=== PATIENT | male | born 1960 | race Two or more races ===

== ENCOUNTER 2024-10-05 17:15 | Inpatient (IN) | payer MEDICAID, BC ==
[~2024-10-05] VITALS: Ht 188 cm; Wt 110.0 kg
--- NOTE | 2024-10-05 17:41 | ED.PDOC ---
SOB-HPI HPI Comments HPI: 64 y/o M, presents to the ED for CC of shortness of breath. Patient reports, he has been experiencing symptoms of shortness of breath with an associated non- productive cough x3-4weeks. Patient reports, shortness of breath to worsen with light exertion. Upon arrival to the ED, patient has 4+ pitting edema. Patient denies chest pain, fever, chills, weakness, or fatigue. No other symptoms or modifying factors present at this time. Vitals Temperature: Respiratory rate: SpO2: Heart rate: 52 Blood pressure: 140/99 Past Medical History: NEUROPATHY Past Surgical History: L-KNEE, BELLY BUTTON Social History: DENIES ANY WILDE: SOB HPI: Poor Historian. 64-year-old male presents to emergency department for evaluation of four week history of shortness of breath with the associated nonproductive cough. Shortness breath is worse with laying flat and with minimal exertion. He does not use oxygen at home. He does not go see a doctor at all because he does not have insurance. Patient has been getting worse and decided to come in for evaluation. Pulse ox is 94% at room air here in triage but appears labored. Past Medical History: Neuropathy, Past Surgical History: Belly surgery, left knee surgery REVIEW OF SYSTEMS: CONSTITUTIONAL: Denies acute: fever, diaphoresis, chills, generalized weakness. HEAD: Denies acute: headache, photophobia Eyes: Denies acute: Double vision, vision loss, eye pain, eye discharge. EARS: Denies acute: tinnitus, hearing loss, ear discharge, ear pain, THROAT: Denies acute: sore throat, swelling, difficulty swallowing , pain with swall owing, change in voice. NECK: Denies acute: neck pain, neck swelling, stiff neck. HEART: Denies acute : chest pain, palpitations, LUNGS: Denies acute: , wheezing, , hemoptysis ABDOMEN: Denies acute: abdominal pain, Nausea, Vomiting, diarrhea, melena , hematemesis, hematochezia SKIN: Denies acute: rash, redness, lesions, itchiness. EXTREMITIES: Denies acute: calf pain, numbness, tingling, weakness, denies pain in extremity. Denies acute: Low back pain. Neuro: Denies acute: focal neurological deficit, motor or sensory focal neurological deficit, tremors, seizure like activity, confusion, dizziness, change in mental status, loss of bowel or bladder function, cauda equina like symptoms. : Denies acute: dysuria, hematuria, flank pain, increase in urinary frequency. PSYCH: Denies acute: hallucination, suicidal ideation, homicidal ideation. PHYSICAL EXAM: General: ----moderate----acute distress, awake and alert. Head: normocephalic, atraumatic. Neck: supple, trachea is midline, no swelling. Throat: Normal phonation. Eyes:, no erythema, no purulent discharge, no proptosis, no icterus. Heart: Tachycardic, no significant murmur appreciated. Lungs: Mild respiratory distress, No wheezing, no rhonchi, no crackles. No stridors Clear to auscultation bilaterally. Abdomen: non tender to palpation, mild distended abdomen,, soft, no guarding, no rebound, + bowel sounds. Neuro: Awake, Alert, oriented to name, self, situation, follows commands GCS=15. Speech is normal. Skin: no petechia, no purpura, no cyanosis, non-pale, not jaundice. Lower extremities: --4/4 bilateral- Pitting edema no deformity, no focal swelling, no calf TTP. Makes eye contact. moves all four extremities. Face: no apparent facial droop. Ambulating in the ED independently. ED COURSE: Time Seen by MD: 17:40 Reviewed notes: Nurses Notes, Medications, Allergies Information Source: Patient Mode of Arrival: Ambulatory Severity: Moderate Timing: Weeks Duration: Since onset Context: With Light Exertion PE Risk Factors: None History of: None Prehospital treatment: None Modifying Factors: Nothing Associated Signs and Symptoms: Cough If cough with SOB: Non-Productive Was a procedure done? Was a procedure done?: No Differential Dx Differential Diagnosis: Bronchitis, CHF, COPD, Pneumonia, Sinusitis, Pharyngitis, URI, Other (DDx include ACS, unstable angina, anxiety, PE, pneumothroax, neoplasm, cardiac ischemia, COPD, asthma, CHF, pleural effusion, tobacco abuse, pneumonia, hypoxia, hypercapnia, anemia., infection/sepsis., pulmonary edema. Asthma, Cardiac tamponade, infection.) X-Ray, Labs, Meds, VS Vital Signs Date Time Temp Pulse Resp B/P (MAP) Pulse Ox O2 Delivery O2 Flow Rate FiO2 10/05/24 22:16 140 22 92 Nasal Cannula* 4 36 10/05/24 22:15 136 22 137/82 (100) 94 10/05/24 22:00 131 22 119/79 (92) 94 10/05/24 21:45 136 22 117/80 (92) 94 10/05/24 21:30 140 22 90/72 (78) 94 10/05/24 21:15 145 22 109/70 (83) 94 10/05/24 21:00 96.9 154 22 103/78 (86) 94 96.9 10/05/24 20:45 151 22 114/80 (91) 94 10/05/24 20:30 140 22 99/72 (81) 94 10/05/24 20:15 144 22 97/67 (77) 94 10/05/24 20:03 134 22 103/83 (90) 94 10/05/24 20:00 96.7 139 22 100/65 (77) 94 96.7 10/05/24 19:45 144 22 94/67 (76) 94 10/05/24 19:30 145 22 76/40 (52) 94 10/05/24 19:15 145 22 117/82 (94) 94 10/05/24 19:07 157 120/86 10/05/24 19:00 159 22 120/86 (97) 94 10/05/24 18:45 161 22 119/65 (83) 94 10/05/24 18:30 162 22 83/65 (71) 94 10/05/24 18:07 178 116/78 10/05/24 18:06 116/78 10/05/24 18:00 97.8 168 22 121/87 (98) 94 97.8 10/05/24 17:42 97.6 52 22 140/99 (113) 94 97.6 Lab Test 10/05/24 21:09 10/05/24 19:19 10/05/24 18:45 10/05/24 18:40 Range/Units Lactic Acid Level 2.9 *H 2.6 *H 0.4-2.0 mmol/L Troponin I High Sensitivity 7 7 </=54 ng/L Urine Color Yellow Yellow Urine Clarity Clear Clear Urine pH 6.0 5.0-9.0 Urine Specific [place] 1.031 1.001-1.035 Urine Protein 2+ H Negative Urine Ketones Negative Negative Urine Blood Negative Negative /uL Urine Nitrite Negative Negative Urine Bilirubin Negative Negative Urine Urobilinogen 3 H Negative mg/dL Urine Leukocyte Esterase Negative Negative /uL Urine RBC 2 0 - 3 /hpf Urine Microscopic WBC 8 H 0-3 /HPF Urine Squamous Epithelial Cells Few <5 /hpf Urine Bacteria Few H None Seen /hpf Urine Hyaline Casts Few 0 - 2 /lpf Urine Mucus Few None Seen Urine Glucose Trace Normal mg/dL Influenza Type A Antigen Negative Negative Influenza Type B Antigen Negative Negative SARS-CoV-2 Antigen (Rapid) Negative NEGATIVE Test 10/05/24 18:14 Range/Units White Blood Count 12.5 H 4.4-10.8 10^3/uL Red Blood Count 5.74 4.5-5.90 10^6/uL Hemoglobin 17.4 13.5-17.5 g/dL Hematocrit 51.1 41.0-53.0 % Mean Corpuscular Volume 89.1 80.0-100.0 fL Mean Corpuscular Hemoglobin 30.3 28.0-32.0 pg Mean Corpuscular Hemoglobin Concent 34.0 32.0-36.0 g/dL Red Cell Distribution Width 15.1 H 11.8-14.3 % Platelet Count 279 140-450 10^3/uL Mean Platelet Volume 8.1 6.9-10.8 fL Neutrophils (%) (Auto) 83.6 H 37.0-80.0 % Lymphocytes (%) (Auto) 7.3 L 10.0-50.0 % Monocytes (%) (Auto) 8.7 0.0-12.0 % Eosinophils (%) (Auto) 0.2 0.0-7.0 % Basophils (%) (Auto) 0.2 0.0-2.0 % Neutrophils # (Auto) 10.4 H 1.6-8.6 10 ^3/uL Lymphocytes # (Auto) 0.9 0.4-5.4 10 ^3/uL Monocytes # (Auto) 1.1 0-1.3 10 ^3/uL Eosinophils # (Auto) 0 0-0.8 10 ^3/uL Basophils # (Auto) 0 0-0.2 10 ^3/uL Nucleated Red Blood Cells 0.1 % Prothrombin Time 14.1 H 9.3-11.8 sec Prothrombin Time INR 1.37 H 0.9-1.15 Activated Partial Thromboplast Time 29.1 24.5-34.5 SEC Sodium Level 136 136-145 mmol/L Potassium Level 4.4 3.5-5.1 mmol/L Chloride Level 105 98-107 mmol/L Carbon Dioxide Level 19 L 20-31 mmol/L Anion Gap 12 5-15 Blood Urea Nitrogen 27 H 9-23 mg/dL Creatinine 1.12 0.700-1.30 mg/dL Glomerular Filtration Rate Calc 73 >90 mL/min BUN/Creatinine Ratio 24.1 H 10.0-20.0 Serum Glucose 158 H 74-106 mg/dL Hemoglobin A1c 6.1 H <5.7 % A1C Lactic Acid Level 2.7 *H 0.4-2.0 mmol/L Calcium Level 10.3 8.7-10.4 mg/dL Magnesium Level 2.0 1.6-2.6 mg/dL Total Bilirubin 1.5 H 0.2-1.0 mg/dL Aspartate Amino Transferase (AST) 112 H 13-40 U/L Alanine Aminotransferase (ALT) 140 H 7-40 U/L Alkaline Phosphatase 60 46-116 U/L Troponin I High Sensitivity 6 </=54 ng/L B-Type Natriuretic Peptide 39.79 0-100 pg/mL Total Protein 6.5 5.7-8.2 g/dL Albumin 4.5 3.2-4.8 g/dL Current Medications Medications (Trade) Dose Ordered Sig/Nadia Route Start Time Stop Time Status Last Admin Furosemide (Lasix Injection) 60 mg ONCE ONCE IV 10/05/24 17:45 10/05/24 17:46 DC 10/05/24 18:06 Aspirin (Ecotrin Enteric Coated Tablet) 325 mg ONCE ONCE PO 10/05/24 17:45 10/05/24 17:46 DC 10/05/24 18:07 Labetalol HCl (Labetalol HCl) 5 mg ONCE ONCE IV 10/05/24 17:45 10/05/24 17:51 DC 10/05/24 18:07 Sodium Chloride 500 ml @ 250 mls/hr Q2H ONCE IV 10/05/24 18:45 10/05/24 20:44 DC 10/05/24 19:11 Levofloxacin/ Dextrose 100 ml @ 100 mls/hr ONCE ONCE IV 10/05/24 18:45 10/05/24 19:44 DC 10/05/24 19:22 Amiodarone HCl 100 ml @ 600 mls/hr ONCE ONCE IV 10/05/24 19:15 10/05/24 19:24 DC 10/05/24 19:23 Carvedilol (Coreg Tablet) 3.125 mg Q12HR PO 10/05/24 22:00 10/05/24 22:54 Amiodarone HCl (Cordarone Tablet) 200 mg Q12HR PO 10/05/24 22:00 10/05/24 22:54 Sodium Chloride 1,000 ml @ 60 mls/hr [id number] IV 10/05/24 20:45 10/05/24 22:33 Digoxin (Lanoxin Injection) 125 mcg ONCE ONCE IV 10/05/24 21:45 10/05/24 21:46 DC 10/05/24 22:33 [place] [id number] Ph: [phone] DIAGNOSTIC IMAGING Diagnostic Imaging Report : [id number] Signed PATIENT: REYMUNDO WILDE ACCT: [id number] UNIT: [id number] : 1960 LOC: ER ROOM / BED: / AGE / SEX: 64 / M ADM STATUS: REG ER SERVICE [id number] ORDERING PHYSICIAN: MARIA GUADALUPE MOLINA DO PROCEDURE(s): CXRP - CHEST PORTABLE REASON: sob ORDER NUMBER(s): [id number], ACCESSION NUMBER(s): [id number] EXAM: XR Chest, 1 View CLINICAL INDICATION: sob TECHNIQUE: Frontal view of the chest. COMPARISON: None FINDINGS: LUNGS AND PLEURAL SPACES: Left pleural effusion. HEART: Cardiomegaly with mild congestion. MEDIASTINUM: Unremarkable. Normal mediastinal contour. BONES/JOINTS: Unremarkable. No acute fracture. OTHER FINDINGS: . IMPRESSION: 1. Cardiomegaly with mild congestion. 2. Left pleural effusion. ATED BY: RADHA SANDERSON MD DICTATED DATE/TIME: 10/05/241851 SIGNED BY: RADHA SANDERSON MD SIGNED DATE/TIME: 10/05/241851 CC: Time of 1ST Reevaluation: 18:20 Reevaluation 1ST: Unchanged Time of 2ND Reevaluation: 00:07 Reevaluation 2ND: Improved Patient Education/Counseling: Diagnosis, Treatment Family Education/Counseling: No Family Present Comments Patient presented with the above HPI.--dyspnea----workup was initiated. patient was found with the above mentioned diagnosis. the following medications were ordered: please refer to order lists of meds and tests obtained by myself Dr. Molina. Patient ED course and VS have been stabilized. Patient has been reassessed in the ED and remained in a stable condition. Pertinent incidental findings were discussed with the patient and/or family. Patient/family voices understanding and is agreeable with plan. Patient has been observed in the ED adequate length of time to insure improvement/stability. Escalation of care considered: Consideration of escalation to observation or admission Patient was found with atrial fibrillation with RVR and very edematous and distended abdomen consistent with likely developing CHF. Patient met sepsis criteria. Sepsis protocol was initiated with weight based fluid resuscitation. Patient is allergic to penicillin. Levaquin was given. For AFib with RVR, we 1st tried labetalol small dose but patient became hypotensive. We gave him a small bolus of normal saline resuscitation 250 cc. His blood pressure improved. We started him on a amiodarone bolus and a drip instead. Given the patient's volume overload, Lasix was ordered earlier. Patient was found with large left pleural effusion. This will likely need to be drained in the morning by Interventional Radiology. Patient was ADMITTED to the medicine team for further evaluation and treatment of their presentation. All the reports of any imaging studies that were ordered by myself were reviewed by myself. Critical Care Note Critical Care Time?: Yes (90 min-critical care time only) Departure 1 Departure Time of Disposition: 17:52 Impression: Primary Impression: Atrial fibrillation with RVR Additional Impressions: Dyspnea Volume overload Sepsis UTI (urinary tract infection) Pleural effusion Elevated LFTs Disposition: ADMITTED INPATIENT Admit to: ICU Condition: Critical Discharged With: Self Heart Score Heart Score: Heart Score Response (Comments) Value History Moderate Suspicious [address]-Deviation 2 Age 45-64 1 Risk Factors No known risk factors 0 Troponin Normal limit 0 Total 4 I personally scribed for MARIA GUADALUPE MOLINA DO ([email or web address]) on 10/05/24 at 17:41. Electronically submitted by Selam Singletary ([email or web address]). I personally scribed for MARIA GUADALUPE MOLINA DO ([email or web address]) on 10/05/24 at 17:49. Electronically submitted by Selam Singletary ([email or web address]). I personally scribed for MARIA GUADALUPE MOLINA DO ([email or web address]) on 10/05/24 at 21:47. Electronically submitted by Barrington Jeffrey ([email or web address]). MARIA GUADALUPE MOLINA DO Oct 05, 2024 17:41
[2024-10-05] MEDS: FUROSEMIDE 100 MG/10ML VIAL IV ONE (18:06)
[2024-10-05] MEDS: ASPirin-EC 325mg tab PO ONE (18:07)
[2024-10-05] MEDS: LABETALOL HCL 20 MG/4 ML VL IV ONE (18:07)
[2024-10-05 18:28] LABS: Hematocrit 51.1 % (41.0-53.0); Hemoglobin 17.4 g/dL (13.5-17.5); Mean Corpuscular Hemoglobin 30.3 pg (28.0-32.0); Mean Corpuscular Volume 89.1 fL (80.0-100.0); Nucleated Red Blood Cells % 0.1 %
[2024-10-05 18:46] LABS: Albumin 4.5 g/dL (3.2-4.8); Alkaline Phosphatase 60 U/L (46-116); Anion Gap 12 (5-15); BUN/Creatinine Ratio 24.1 (10.0-20.0); Calcium 10.3 mg/dL (8.7-10.4); Chloride 105 mmol/L (98-107); Magnesium 2.0 mg/dL (1.6-2.6); Potassium 4.4 mmol/L (3.5-5.1); Total Protein 6.5 g/dL (5.7-8.2)
--- NOTE | 2024-10-05 18:55 | DVH ---
EXAM: XR Chest, 1 View CLINICAL INDICATION: sob TECHNIQUE: Frontal view of the chest. COMPARISON: None FINDINGS: LUNGS AND PLEURAL SPACES: Left pleural effusion. HEART: Cardiomegaly with mild congestion. MEDIASTINUM: Unremarkable. Normal mediastinal contour. BONES/JOINTS: Unremarkable. No acute fracture. OTHER FINDINGS: . IMPRESSION: 1. Cardiomegaly with mild congestion. 2. Left pleural effusion.
[2024-10-05 19:00] LABS: Alanine Aminotransferase 140 U/L (7-40); Bilirubin, Total 1.5 mg/dL (0.2-1.0); Blood Urea Nitrogen 27 mg/dL (9-23); Carbon Dioxide 19 mmol/L (20-31); Glucose 158 mg/dL (74-106); Sodium 136 mmol/L (136-145)
[2024-10-05 19:01] LABS: Urine Protein, UAD 2+ (Negative)
[2024-10-05 19:10] LABS: INR 1.37 (0.9-1.15); Partial Thromboplastin Time 29.1 SEC (24.5-34.5); Prothrombin Time 14.1 sec (9.3-11.8)
[2024-10-05] MEDS: SODIUM CHLORIDE 0.9% 500 ML IV ONE ×2 (19:11→22:34)
[2024-10-05] MEDS: AMIODARONE BOLUS KIT 100 ML IV ONE (19:23)
[2024-10-05] MEDS ORDERED: AMIODARONE 360mg/200mL PREMIX 200 ML IV SCH ×2 (19:30)
[2024-10-05 19:50] LABS: COVID19 ANTIGEN SOFIA FIA NEGATIVE (NEGATIVE)
[2024-10-05 19:52] LABS: Lactic Acid w/Reflex 2.6 mmol/L (0.4-2.0)
[2024-10-05] MEDS: AMIODARONE 360mg/200mL PREMIX 200 ML IV ONE (19:59)
[2024-10-05] MEDS ORDERED: VANCOMYCIN PER PHARMACY 0 MG IV SCH (20:45)
[2024-10-05] MEDS ORDERED: IBUPROFEN 600 MG TAB PO PRN (20:45)
[2024-10-05 22:16] VITALS: PULSE 140; RESP 22; O2SAT 92
--- NOTE | 2024-10-05 22:17 | DVHHP2 ---
History of Present Illness Reason for Visit: Atrial fibrillation with RVR History of Present Illness The patient is a 64-year-old male with past medical history of neuropathy who presented to [facility] ED with complaint of shortness of breaths. Patient reports he has been experiencing symptoms of nonproductive cough for the past 3 weeks, shortness of breaths with exertion, SOB at rest, increased work of breathing, getting worse today that prompted this visit. Patient was seen and evaluated in the ED, laboratory data shows WBC 12.5, platelets 279, sodium 136, potassium 4.4, BUN 27, creatinine 1.12, glucose 158, GFR 73, troponin seven, AST 112, ALT 140, BNP 39.79, blood pressure 76/40 trending up to 99/72, heart rate 178 trending down to 138, temperature 98.7 F, O2 saturation 95% on oxygen. Chest x-ray revealing cardiomegaly with mild congestion, left pleural effusion. Patient was started on IV amiodarone drip, IV Lasix, please see medication orders section in the computer. On my assessment, patient denied chest pain, no dizziness, no headache, no diaphoresis, currently on oxygen, no nausea, no vomiting, no fever, no chills. Patient was admitted for further evaluation and medical management. Past Medical History Neuropathy Past Surgical History Left knee surgery, Belly button surgery Family History Reviewed, noncontributory to the management of this case. Past Social History The patient lives at home, denies smoking, alcohol or illicit drugs abuse. Review of Systems Constitutional: Yes: Weakness; No: Fever, Chills, Sweats, Malaise, Other Eyes: No: Pain, Vision change, Conjunctivae inflammation, Eyelid inflammation, Other, Redness ENT: No: Ear pain, Ear discharge, Nose pain, Nose discharge, Nose congestion, Mouth pain, Mouth swelling, Throat pain, Throat swelling, Other Respiratory: Shortness of breath; No: Cough, Dry, SOB with excertion, Wheezing, Hemoptysis, Pleuritic Pain, Sputum, Wheezing, Other Cardiovascular: Palpitations; No: Chest Pain, Orthopnea, Paroxysmal Noc. Dyspnea, Edema, Lt Headedness, Other Gastrointestinal: No: Nausea, Vomiting, Abdominal Pain, Diarrhea, Constipation, Melena, Hematochezia, Other Genitourinary: No Dysuria, No Frequency, No Incontinence, No Hematuria, No Retention, No Other Musculoskeletal: No: other, neck pain, shoulder pain, arm pain, back pain, hand pain, leg pain, foot pain Skin: No: Rash, Lesions, Jaundice, Bruising, Other Neurological: No: Weakness, Numbness, Incoordination, Change in speech, Confusion, Seizures, Other Allergies: Coded Allergies: Penicillins (Verified Allergy, Unknown, 10/05/24) Medications Current Medications Medications Dose Ordered Sig/Nadia Route Start Time Stop Time Status Last Admin Dose Admin Carvedilol 3.125 mg Q12HR PO 10/05/24 22:00 Digoxin 0.125 mg DAILY PO 10/06/24 10:00 Amiodarone HCl 200 mg Q12HR PO 10/05/24 22:00 Vancomycin HCl 0 ml @ 0 mls/hr UD IV 10/05/24 20:45 UNV Levofloxacin/ Dextrose 100 ml @ 100 mls/hr DAILY IV 10/06/24 10:00 Aspirin 81 mg DAILY PO 10/06/24 10:00 Ibuprofen 600 mg Q6HP PRN PO 10/05/24 20:45 Sodium Chloride 1,000 ml @ 60 mls/hr [id number] IV 10/05/24 20:45 Acetaminophen/ Hydrocodone Bitart 1 tab Q4HP PRN PO 10/05/24 20:45 Ondansetron HCl 4 mg Q4HP PRN IV 10/05/24 20:45 Docusate Sodium 100 mg BIDPRN PRN PO 10/05/24 20:45 Vancomycin HCl 200 ml @ 200 mls/hr Q1H IV 10/05/24 22:30 10/06/24 00:29 Exam Vital Signs Vital Signs Date Time Temp Pulse Resp B/P (MAP) Pulse Ox O2 Delivery O2 Flow Rate FiO2 10/05/24 20:30 140 22 99/72 (81) 94 10/05/24 20:00 98.7 98.7 General Appearance: Alert, Oriented X3, Cooperative, No acute distress HEENT: Atraumatic, PERRLA, EOMI, Mucous membr. moist/pink Respiratory: Normal air movement, Other (Diminished breath sounds) Cardiovascular: Regular rate, Normal S1, Normal S2, No murmurs Abdominal: Normal bowel sounds, Soft, No tenderness, No hepatospenomegaly, No masses Extremities: No clubbing, No cyanosis, No edema, Normal pulses, No tenderness/swelling Skin: No rashes, No breakdown, No significant lesion Neuro: Normal speech, Normal tone, Sensation intact, Cranial nerves 3-12 NL, Reflexes 2+, Other (Generalized weakness) Psych/Mental Status: Mental status NL, Mood NL Labs/Xrays Labs Test 10/05/24 21:09 10/05/24 18:45 10/05/24 18:40 10/05/24 18:14 Range/Units Lactic Acid Level 2.9 *H 0.4-2.0 mmol/L Troponin I High Sensitivity 7 </=54 ng/L Urine Color Yellow Yellow Urine Clarity Clear Clear Urine pH 6.0 5.0-9.0 Urine Specific [place] 1.031 1.001-1.035 Urine Protein 2+ H Negative Urine Ketones Negative Negative Urine Blood Negative Negative /uL Urine Nitrite Negative Negative Urine Bilirubin Negative Negative Urine Urobilinogen 3 H Negative mg/dL Urine Leukocyte Esterase Negative Negative /uL Urine RBC 2 0 - 3 /hpf Urine Microscopic WBC 8 H 0-3 /HPF Urine Squamous Epithelial Cells Few <5 /hpf Urine Bacteria Few H None Seen /hpf Urine Hyaline Casts Few 0 - 2 /lpf Urine Mucus Few None Seen Urine Glucose Trace Normal mg/dL Influenza Type A Antigen Negative Negative Influenza Type B Antigen Negative Negative SARS-CoV-2 Antigen (Rapid) Negative NEGATIVE White Blood Count 12.5 H 4.4-10.8 10^3/uL Red Blood Count 5.74 4.5-5.90 10^6/uL Hemoglobin 17.4 13.5-17.5 g/dL Hematocrit 51.1 41.0-53.0 % Mean Corpuscular Volume 89.1 80.0-100.0 fL Mean Corpuscular Hemoglobin 30.3 28.0-32.0 pg Mean Corpuscular Hemoglobin Concent 34.0 32.0-36.0 g/dL Red Cell Distribution Width 15.1 H 11.8-14.3 % Platelet Count 279 140-450 10^3/uL Mean Platelet Volume 8.1 6.9-10.8 fL Neutrophils (%) (Auto) 83.6 H 37.0-80.0 % Lymphocytes (%) (Auto) 7.3 L 10.0-50.0 % Monocytes (%) (Auto) 8.7 0.0-12.0 % Eosinophils (%) (Auto) 0.2 0.0-7.0 % Basophils (%) (Auto) 0.2 0.0-2.0 % Neutrophils # (Auto) 10.4 H 1.6-8.6 10 ^3/uL Lymphocytes # (Auto) 0.9 0.4-5.4 10 ^3/uL Monocytes # (Auto) 1.1 0-1.3 10 ^3/uL Eosinophils # (Auto) 0 0-0.8 10 ^3/uL Basophils # (Auto) 0 0-0.2 10 ^3/uL Nucleated Red Blood Cells 0.1 % Prothrombin Time 14.1 H 9.3-11.8 sec Prothrombin Time INR 1.37 H 0.9-1.15 Activated Partial Thromboplast Time 29.1 24.5-34.5 SEC Sodium Level 136 136-145 mmol/L Potassium Level 4.4 3.5-5.1 mmol/L Chloride Level 105 98-107 mmol/L Carbon Dioxide Level 19 L 20-31 mmol/L Anion Gap 12 5-15 Blood Urea Nitrogen 27 H 9-23 mg/dL Creatinine 1.12 0.700-1.30 mg/dL Glomerular Filtration Rate Calc 73 >90 mL/min BUN/Creatinine Ratio 24.1 H 10.0-20.0 Serum Glucose 158 H 74-106 mg/dL Hemoglobin A1c 6.1 H <5.7 % A1C Calcium Level 10.3 8.7-10.4 mg/dL Magnesium Level 2.0 1.6-2.6 mg/dL Total Bilirubin 1.5 H 0.2-1.0 mg/dL Aspartate Amino Transferase (AST) 112 H 13-40 U/L Alanine Aminotransferase (ALT) 140 H 7-40 U/L Alkaline Phosphatase 60 46-116 U/L B-Type Natriuretic Peptide 39.79 0-100 pg/mL Total Protein 6.5 5.7-8.2 g/dL Albumin 4.5 3.2-4.8 g/dL PATIENT: REYMUNDO WILDE ACCT: [id number] UNIT: [id number] : 1960 LOC: ER ROOM / BED: / AGE / SEX: 64 / M ADM STATUS: REG ER SERVICE [id number] ORDERING PHYSICIAN: MARIA GUADALUPE MOLINA DO PROCEDURE(s): CXRP - CHEST PORTABLE REASON: sob ORDER NUMBER(s): [id number], ACCESSION NUMBER(s): [id number] EXAM: XR Chest, 1 View CLINICAL INDICATION: sob TECHNIQUE: Frontal view of the chest. COMPARISON: None FINDINGS: LUNGS AND PLEURAL SPACES: Left pleural effusion. HEART: Cardiomegaly with mild congestion. MEDIASTINUM: Unremarkable. Normal mediastinal contour. BONES/JOINTS: Unremarkable. No acute fracture. OTHER FINDINGS: IMPRESSION: 1. Cardiomegaly with mild congestion. 2. Left pleural effusion. Assessment/Plan Assessment/Plan Atrial fibrillation with RVR Pleural effusion Dyspnea Volume overload Sepsis, unspecified organisms UTI (urinary tract infection) Elevated liver enzymes Plan 1. Admit to intensive care unit 2. Breathing treatment 3. Pain control management 4. IV antibiotic management 5. Management of fluids and electrolytes 6. Consultation for hospitalist/cardiology 7. Diagnostic test chest x-ray 8. DVT prophylaxis-on SCDs 9. Repeat labs CBC, CMP in a.m. 10. Home medication reviewed and reconciled 11. Continue with current medical management 12. Treatment plan discussed with patient/ and RN. Patient/ verbalized understanding. Plan discussed with: Patient, Other (RN) My Orders Orders - HENRIETTA HERRERA DNP Procedure Category Date Status Time * Cardiology Consult CONS 10/05/24 Transmitted 20:44 Carvedilol Tablet PHA 10/05/24 In Process (Coreg Tablet) 22:00 Digoxin Tablet PHA 10/06/24 In Process (Lanoxin Tablet) 10:00 Amiodarone Tablet PHA 10/05/24 In Process (Cordarone Tablet) 22:00 Vancomycin Per PHA 10/05/24 Pending Pharmacy 20:45 Levofloxacin 500mg PHA 10/06/24 In Process (Levaquin 500mg/ 100m 10:00 Aspirin Tablet PHA 10/06/24 In Process 10:00 Ibuprofen Tablet PHA 10/05/24 In Process (Motrin Tablet) 20:45 Allergies RAJAT 10/05/24 In Process 20:44 Code Status CODE 10/05/24 Transmitted 20:44 Sodium Chloride 0.9% PHA 10/05/24 In Process 20:45 Oxygen Per Hour RT 10/05/24 Transmitted 20:44 Hydrocodone-Acet PHA 10/05/24 In Process 5/325mg Tab (Zoe 20:45 Ondansetron Hcl PHA 10/05/24 In Process (Zofran) 20:45 Docusate Sodium PHA 10/05/24 In Process Capsule (Colace 20:45 Fall Risk Precautions RAJAT 10/05/[address] 20:44 Complete Blood Count LAB 10/06/24 Verified 04:00 Comprehensive LAB 10/06/24 Verified Metabolic Panel 04:00 Cardiac DIET 10/06/24 Transmitted Diet-2gna,Lofat,Lochol Breakfast Condition: Serious RAJAT 10/05/24 In Process 20:44 Maintain Bed Rest RAJAT 10/05/24 In Process 20:44 Sequential RAJAT 10/05/24 In Process Compression Device Vancomycin 1gm/200ml PHA 10/05/24 In Process Pm 22:30 Problem List: (1) Atrial fibrillation with RVR (2) Pleural effusion (3) Dyspnea (4) Volume overload (5) Sepsis, unspecified organism (6) UTI (urinary tract infection) (7) Elevated liver enzymes Date of Service: Oct 05, 2024 Billing Provider: HENRIETTA HERRERA DNP Common Visit Codes: 82986-[id number] INP/OBS CARE (HIGH) HENRIETTA HERRERA DNP Oct 05, 2024 22:17
[2024-10-05] MEDS ORDERED: MORPHINE SULFATE 4 MG/ML SYR/VIAL IV PRN (22:30)
[2024-10-05] MEDS ORDERED: NITROGLYCERIN 0.4 MG SL TAB SL PRN (22:30)
[2024-10-05] MEDS: SODIUM CHLORIDE 0.9% 1,000 ML IV SCH (22:33)
[2024-10-05] MEDS: DIGOXIN (250MCG/ML) 2 ML AMPULE IV ONE (22:33)
[2024-10-05] MEDS: CARVEDILOL 3.125 MG TAB PO SCH (22:54)
[2024-10-05] MEDS: AMIODARONE HCL 200 MG TAB PO SCH (22:54)
[2024-10-06] VITALS (30 sets, daily range): BP systolic 87–181; BP diastolic 10–147; PULSE 110–134; RESP 13–38; TEMP 97.6–98.9; O2SAT 95–98
[2024-10-06] MEDS ORDERED: AMIODARONE 360mg/200mL PREMIX 200 ML IV SCH (01:30)
[2024-10-06] MEDS: AMIODARONE 360mg/200mL PREMIX 200 ML IV SCH ×2 (01:30→10:38)
[2024-10-06 05:24] LABS: Hematocrit 49.9 % (41.0-53.0); Hemoglobin 16.7 g/dL (13.5-17.5); Mean Corpuscular Hemoglobin 30.0 pg (28.0-32.0); Mean Corpuscular Volume 89.4 fL (80.0-100.0); Nucleated Red Blood Cells % 0.1 %
[2024-10-06 05:45] LABS: Albumin 4.5 g/dL (3.2-4.8); Alkaline Phosphatase 69 U/L (46-116); Anion Gap 10 (5-15); BUN/Creatinine Ratio 18.9 (10.0-20.0); Bilirubin, Total 1.1 mg/dL (0.2-1.0); Calcium 10.2 mg/dL (8.7-10.4); Carbon Dioxide 23 mmol/L (20-31); Chloride 103 mmol/L (98-107); Total Protein 6.5 g/dL (5.7-8.2)
[2024-10-06 05:46] LABS: Alanine Aminotransferase 622 U/L (7-40); Blood Urea Nitrogen 35 mg/dL (9-23); Glucose 154 mg/dL (74-106); Sodium 136 mmol/L (136-145)
[2024-10-06 05:48] LABS: Potassium 5.6 mmol/L (3.5-5.1)
[2024-10-06] MEDS: SODIUM ZIRCONIUM CYCL 10 GM PAK PO ONE (07:15)
[2024-10-06] MEDS: DEXTROSE (50%) 50ML SYRG IV ONE (07:15)
[2024-10-06] MEDS: CALCIUM GLUC 1,000mg/50ml-NS 50 ML IV ONE (07:15)
[2024-10-06] MEDS: SODIUM BICARB 8.4% 50Meq/50ml SYR INJ IV ONE (07:15)
[2024-10-06] MEDS: InsuLIN REG 1unit/0.01ml Soln (100units/ml) IV ONE (07:17)
[2024-10-06] MEDS: DIGOXIN 0.125 MG TAB PO SCH (10:46)
[2024-10-06] MEDS: FUROSEMIDE 40 MG/4 ML VIAL IV SCH (10:47)
--- NOTE | 2024-10-06 11:11 | DVHINCON2 ---
Date Seen: Oct 06, 2024 Referring Physician CLAU Mackey Reason for Consultation Hypotension History of Present Illness This is a 64-year-old male patient who presents to the emergency room with chief complaint of worsening shortness of breath for approximately two weeks prior to emergency room arrival. Cardiology has been consulted at this time for hypotension. Initial twelve lead electrocardiogram reveals atrial fibrillation with rapid ventricular rate. The patient denies any chest pain or palpitations. Serial troponin levels have been negative. Significant past medical history includes neuropathy, tobacco use, previous alcohol abuse, and obesity. The patient states he does not regularly see a primary care physician. He denies any cardiac history. Past Medical History Past medical history reviewed. No other significant than mentioned above. Past Surgical History Hernia repair Family History Family history reviewed. Social History Patient has a 20 pack-year history, quit smoking approximately 30 years ago Patient reports a history of alcohol abuse with drinking 60 cans of beer per week. States he stopped drinking any alcohol for one year Denies any illicit drug use Allergies: Coded Allergies: Penicillins (Verified Allergy, Unknown, 10/05/24) Home Meds Denies taking any prescribed medications Current Medications Current Medications Medications (Trade) Dose Ordered Sig/Nadia Route PRN Reason Start Time Stop Time Status Last Admin Carvedilol (Coreg Tablet) 3.125 mg Q12HR PO 10/05/24 22:00 10/06/24 10:46 Digoxin (Lanoxin Tablet) 0.125 mg DAILY PO 10/06/24 10:00 10/06/24 10:46 Amiodarone HCl (Cordarone Tablet) 200 mg Q12HR PO 10/05/24 22:00 10/06/24 10:28 DC 10/05/24 22:54 Vancomycin HCl 0 ml @ 0 mls/hr UD IV 10/05/24 20:45 Levofloxacin/ Dextrose 100 ml @ 100 mls/hr DAILY IV 10/06/24 10:00 10/06/24 10:45 Aspirin 81 mg DAILY PO 10/06/24 10:00 10/06/24 10:45 Ibuprofen (Motrin Tablet) 600 mg Q6HP PRN PO PAIN SCALE 1-3 OR TEMP>100.4 10/05/24 20:45 Sodium Chloride 1,000 ml @ 60 mls/hr [id number] IV 10/05/24 20:45 10/05/24 22:33 Acetaminophen/ Hydrocodone Bitart ([place] 5/325MG Tab) 1 tab Q4HP PRN PO MODERATE PAIN (4-6 PAIN SCALE) 10/05/24 20:45 Ondansetron HCl (Zofran) 4 mg Q4HP PRN IV NAUSEA / VOMITING 10/05/24 20:45 Docusate Sodium (Colace Capsule) 100 mg BIDPRN PRN PO FOR CONSTIPATION 10/05/24 20:45 Vancomycin HCl 200 ml @ 200 mls/hr Q1H IV 10/05/24 22:30 10/06/24 00:29 DC 10/05/24 23:39 Nitroglycerin (Ntrostat Sublingual) 0.4 mg Q5MINP PRN SL FOR CHEST PAIN 10/05/24 22:30 Morphine Sulfate 2 mg Q30M PRN IV FOR CHEST PAIN 10/05/24 22:30 Furosemide (Lasix Injection) 40 mg DAILY IV 10/06/24 10:00 10/06/24 10:47 Vancomycin HCl 200 ml @ 160 mls/hr Q12H IV 10/06/24 14:00 Review of Systems Constitutional: No symptom reported Ears, Nose, & Throat: No symptom reported Eyes: No symptom reported Neurological: No symptoms reported Pulmonary/Respiratory: Shortness of breath Cardiovascular: No symptom reported Gastrointestinal: No symptom reported Genitourinary: No symptom reported Musculoskeletal: No symptom reported Skin: No symptom reported Psychiatric: No symptom reported Endocrine: No symptom reported Hematologic/Lymphatic: No symptom reported Vital Signs Vital Signs Date Time Temp Pulse Resp B/P (MAP) Pulse Ox O2 Delivery O2 Flow Rate FiO2 10/06/24 10:47 115/84 10/06/24 10:46 120 10/06/24 08:00 97.7 14 96 97.7 10/06/24 08:00 Oxymizer 8 N/A Physical Exam General Appearance: Cooperative. Morbidly obese. Pulmonary/Respiratory: Diminished throughout Cardiovascular/Chest: Irregularly irregular heart rate and rhythm. Peripheral Pulses: 2+ Radial (R). 2+ Radial (L). 2+ Pedal (R). 2+ Pedal (L) Abdominal Exam: Normal bowel sounds. Ankle Exam: 3+ pitting edema Lower extremities: 3+ pitting edema Neuro/Mental Status: A/OX4, coherent. Thoughts/Psych: Normal thought pattern. Appropriate mood and affect. Good judgment and insight. Appearance: No acute distress. Skin Exam: Normal inspection. Normal color. Warm and dry. Labs/Diagnostic Data Labs Test 10/06/24 10:05 10/06/24 05:00 10/05/24 21:09 10/05/24 18:45 Range/Units Potassium Level 4.6 3.5-5.1 mmol/L Thyroid Stimulating Hormone (TSH) 2.54 0.55-4.78 uIU/mL White Blood Count 13.2 H 4.4-10.8 10^3/uL Red Blood Count 5.59 4.5-5.90 10^6/uL Hemoglobin 16.7 13.5-17.5 g/dL Hematocrit 49.9 41.0-53.0 % Mean Corpuscular Volume 89.4 80.0-100.0 fL Mean Corpuscular Hemoglobin 30.0 28.0-32.0 pg Mean Corpuscular Hemoglobin Concent 33.5 32.0-36.0 g/dL Red Cell Distribution Width 15.4 H 11.8-14.3 % Platelet Count 270 140-450 10^3/uL Mean Platelet Volume 8.4 6.9-10.8 fL Neutrophils (%) (Auto) 83.1 H 37.0-80.0 % Lymphocytes (%) (Auto) 6.7 L 10.0-50.0 % Monocytes (%) (Auto) 10.0 0.0-12.0 % Eosinophils (%) (Auto) 0.0 0.0-7.0 % Basophils (%) (Auto) 0.2 0.0-2.0 % Neutrophils # (Auto) 11.0 H 1.6-8.6 10 ^3/uL Lymphocytes # (Auto) 0.9 0.4-5.4 10 ^3/uL Monocytes # (Auto) 1.3 0-1.3 10 ^3/uL Eosinophils # (Auto) 0 0-0.8 10 ^3/uL Basophils # (Auto) 0 0-0.2 10 ^3/uL Nucleated Red Blood Cells 0.1 % Sodium Level 136 136-145 mmol/L Chloride Level 103 98-107 mmol/L Carbon Dioxide Level 23 20-31 mmol/L Anion Gap 10 5-15 Blood Urea Nitrogen 35 H 9-23 mg/dL Creatinine 1.85 H 0.700-1.30 mg/dL Glomerular Filtration Rate Calc 40 >90 mL/min BUN/Creatinine Ratio 18.9 10.0-20.0 Serum Glucose 154 H 74-106 mg/dL Calcium Level 10.2 8.7-10.4 mg/dL Total Bilirubin 1.1 H 0.2-1.0 mg/dL Aspartate Amino Transferase (AST) 732 H 13-40 U/L Alanine Aminotransferase (ALT) 622 H 7-40 U/L Alkaline Phosphatase 69 46-116 U/L Total Protein 6.5 5.7-8.2 g/dL Albumin 4.5 3.2-4.8 g/dL Lactic Acid Level 2.9 *H 0.4-2.0 mmol/L Troponin I High Sensitivity 7 </=54 ng/L Urine Color Yellow Yellow Urine Clarity Clear Clear Urine pH 6.0 5.0-9.0 Urine Specific [place] 1.031 1.001-1.035 Urine Protein 2+ H Negative Urine Ketones Negative Negative Urine Blood Negative Negative /uL Urine Nitrite Negative Negative Urine Bilirubin Negative Negative Urine Urobilinogen 3 H Negative mg/dL Urine Leukocyte Esterase Negative Negative /uL Urine RBC 2 0 - 3 /hpf Urine Microscopic WBC 8 H 0-3 /HPF Urine Squamous Epithelial Cells Few <5 /hpf Urine Bacteria Few H None Seen /hpf Urine Hyaline Casts Few 0 - 2 /lpf Urine Mucus Few None Seen Urine Glucose Trace Normal mg/dL Test 10/05/24 18:40 10/05/24 18:14 Range/Units Influenza Type A Antigen Negative Negative Influenza Type B Antigen Negative Negative SARS-CoV-2 Antigen (Rapid) Negative NEGATIVE Prothrombin Time 14.1 H 9.3-11.8 sec Prothrombin Time INR 1.37 H 0.9-1.15 Activated Partial Thromboplast Time 29.1 24.5-34.5 SEC Hemoglobin A1c 6.1 H <5.7 % A1C Magnesium Level 2.0 1.6-2.6 mg/dL B-Type Natriuretic Peptide 39.79 0-100 pg/mL Assessment Atrial fibrillation with rapid ventricular response, newly diagnosed Rule out structural heart disease Left pleural effusion Sepsis Hyperkalemia Acute kidney injury Transaminitis Prediabetes History of alcoholism Morbidly obese Plan/Recommendation We will continue with the following plan/recommendations (Dr. Kaminski): * Transthoracic echocardiogram to evaluate cardiac function * Diuresis as tolerated * ?[id number] VASC score: 1 point, HAS-BLED score: 1 point * Initiate therapeutic Lovenox, transition to NOAC when appropriate * Beta-aurelio for rate control * Continue amiodarone drip at 1mg/min per Dr. Kaminski * Digoxin for rate control * Monitor and replete electrolytes as needed * Close Cardiac surveillance Patient seen and examined at bedside with . Plan of care discussed with the patient and his family at bedside. Thank you for allowing us to care for this patient. Please call with any questions or concerns. Critical care time spent: 44 minutes This medical document was created using an electronic medical record system with voice recognition software and computerized dictation system. Although this document has been carefully reviewed, there might still be some phonetic and typographical errors. Occasional wrong-word or ``sound-alike substitutions may have occurred due to the inherent limitations of voice recognition software. These areas are purely typographical due to imperfections of the software programs and do not reflect any compromise in the patient's medical care. Please read the chart carefully and recognize, using context, where these substitutions have occurred. Plan discussed with: Patient, Spouse NYHA Physical activity limitations: NA Date of Service: Oct 06, 2024 Billing Provider: NORMA KERN Cardiology Common Codes: [id number] INP/OBS CARE (High) Cardiology Consultation Codes: [id number] CONSULT <45MIN NORMA KERN Oct 06, 2024 11:11
[2024-10-06] MEDS: ENOXAPARIN SOD 120 MG/0.8 ML SYRINGE SC SCH (12:51)
[2024-10-06] MEDS: VANCOMYCIN 1GM/200ML PM 200 ML IV SCH (14:23)
--- NOTE | 2024-10-06 15:54 | DVHINCON2 ---
Date of service: Oct 06, 2024 Referring Physician Mike Mackey NP Reason for Consultation Acute kidney injury History of Present Illness Mr. Fountain is a 64-year-old man without significant past medical history other than that of reported neuropathy presented for further evaluation and management of proximally 10 day history of progressive exertional dyspnea. He also endorses significant bilateral lower extremity edema and increasing abdominal girth. He denies gross hematuria or dysuria. Denies recent fevers, chills, nausea, vomiting, use of NSAIDs, recent intravenous contrast studies, hemoptysis, hematochezia. He reports that he has not been seeing a regular primary care physician due to lack of insurance. Patient's and patient's daughter with at the bedside and provided additional history. He has an indwelling [place] catheter currently. Past Medical History Neuropathy Allergies: Coded Allergies: Penicillins (Verified Allergy, Unknown, 10/05/24) Current Medications Current Medications Medications (Trade) Dose Ordered Sig/Nadia Route PRN Reason Start Time Stop Time Status Last Admin Carvedilol (Coreg Tablet) 3.125 mg Q12HR PO 10/05/24 22:00 10/06/24 11:41 DC 10/06/24 10:46 Digoxin (Lanoxin Tablet) 0.125 mg DAILY PO 10/06/24 10:00 10/06/24 10:46 Amiodarone HCl (Cordarone Tablet) 200 mg Q12HR PO 10/05/24 22:00 10/06/24 10:28 DC 10/05/24 22:54 Vancomycin HCl 0 ml @ 0 mls/hr UD IV 10/05/24 20:45 Levofloxacin/ Dextrose 100 ml @ 100 mls/hr DAILY IV 10/06/24 10:00 10/06/24 10:45 Aspirin 81 mg DAILY PO 10/06/24 10:00 10/06/24 10:45 Ibuprofen (Motrin Tablet) 600 mg Q6HP PRN PO PAIN SCALE 1-3 OR TEMP>100.4 10/05/24 20:45 Sodium Chloride 1,000 ml @ 60 mls/hr [id number] IV 10/05/24 20:45 10/05/24 22:33 Acetaminophen/ Hydrocodone Bitart ([place] 5/325MG Tab) 1 tab Q4HP PRN PO MODERATE PAIN (4-6 PAIN SCALE) 10/05/24 20:45 Ondansetron HCl (Zofran) 4 mg Q4HP PRN IV NAUSEA / VOMITING 10/05/24 20:45 Docusate Sodium (Colace Capsule) 100 mg BIDPRN PRN PO FOR CONSTIPATION 10/05/24 20:45 Vancomycin HCl 200 ml @ 200 mls/hr Q1H IV 10/05/24 22:30 10/06/24 00:29 DC 10/05/24 23:39 Nitroglycerin (Ntrostat Sublingual) 0.4 mg Q5MINP PRN SL FOR CHEST PAIN 10/05/24 22:30 Morphine Sulfate 2 mg Q30M PRN IV FOR CHEST PAIN 10/05/24 22:30 Furosemide (Lasix Injection) 40 mg DAILY IV 10/06/24 10:00 10/06/24 10:47 Vancomycin HCl 200 ml @ 160 mls/hr Q12H IV 10/06/24 14:00 10/06/24 14:23 Enoxaparin Sodium (Lovenox) 120 mg Q12HR SC 10/06/24 11:56 10/06/24 12:51 Metoprolol Succinate (Toprol Xl) 25 mg DAILY PO 10/07/24 10:00 Family History: Cerebrovascular accident (CVA) FH: cancer Review of Systems Denies gross hematuria, dysuria, tea or Coca-Cola colored urine Denies excessive use of recent NSAIDs, foamy urine, recent IV contrast studies\ Denies fever, chills, nausea, vomiting, diarrhea Denies unintentional weight loss, night sweats Denies focal weakness, numbness H&P Exam Vital Signs/I&O Vital Sign Date Time Temp Pulse Resp B/P (MAP) Pulse Ox O2 Delivery O2 Flow Rate FiO2 10/06/24 14:31 126 25 103/76 (85) 96 10/06/24 14:10 Oxymizer 8 N/A 10/06/24 12:15 98.6 98.6 Intake and Output 10/05/24 10/06/24 19:00 07:00 Intake Total 1653.32 ml Balance 1653.32 ml Intake IV Total 1653.32 ml Physical Exam Gen: Appears mildly dyspneic with conversation heent: nc/at, mmm lungs: Diminished breath sounds on the right lung field cvs: no rub abd: soft, bowel sounds audible ext: + edema skin: no rash neuro: alert and oriented Labs/Diagnostic Data Labs/Diagnostic Data Laboratory Tests Test 10/06/24 10:05 10/06/24 05:00 10/05/24 21:09 10/05/24 19:19 Range/Units Potassium Level 4.6 5.6 *H 3.5-5.1 mmol/L Thyroid Stimulating Hormone (TSH) 2.54 0.55-4.78 uIU/mL White Blood Count 13.2 H 4.4-10.8 10^3/uL Red Blood Count 5.59 4.5-5.90 10^6/uL Hemoglobin 16.7 13.5-17.5 g/dL Hematocrit 49.9 41.0-53.0 % Mean Corpuscular Volume 89.4 80.0-100.0 fL Mean Corpuscular Hemoglobin 30.0 28.0-32.0 pg Mean Corpuscular Hemoglobin Concent 33.5 32.0-36.0 g/dL Red Cell Distribution Width 15.4 H 11.8-14.3 % Platelet Count 270 140-450 10^3/uL Mean Platelet Volume 8.4 6.9-10.8 fL Neutrophils (%) (Auto) 83.1 H 37.0-80.0 % Lymphocytes (%) (Auto) 6.7 L 10.0-50.0 % Monocytes (%) (Auto) 10.0 0.0-12.0 % Eosinophils (%) (Auto) 0.0 0.0-7.0 % Basophils (%) (Auto) 0.2 0.0-2.0 % Neutrophils # (Auto) 11.0 H 1.6-8.6 10 ^3/uL Lymphocytes # (Auto) 0.9 0.4-5.4 10 ^3/uL Monocytes # (Auto) 1.3 0-1.3 10 ^3/uL Eosinophils # (Auto) 0 0-0.8 10 ^3/uL Basophils # (Auto) 0 0-0.2 10 ^3/uL Nucleated Red Blood Cells 0.1 % Sodium Level 136 136-145 mmol/L Chloride Level 103 98-107 mmol/L Carbon Dioxide Level 23 20-31 mmol/L Anion Gap 10 5-15 Blood Urea Nitrogen 35 H 9-23 mg/dL Creatinine 1.85 H 0.700-1.30 mg/dL Glomerular Filtration Rate Calc 40 >90 mL/min BUN/Creatinine Ratio 18.9 10.0-20.0 Serum Glucose 154 H 74-106 mg/dL Calcium Level 10.2 8.7-10.4 mg/dL Total Bilirubin 1.1 H 0.2-1.0 mg/dL Aspartate Amino Transferase (AST) 732 H 13-40 U/L Alanine Aminotransferase (ALT) 622 H 7-40 U/L Alkaline Phosphatase 69 46-116 U/L Total Protein 6.5 5.7-8.2 g/dL Albumin 4.5 3.2-4.8 g/dL Lactic Acid Level 2.9 *H 2.6 *H 0.4-2.0 mmol/L Troponin I High Sensitivity 7 7 </=54 ng/L Test 10/05/24 18:45 10/05/24 18:40 10/05/24 18:14 Range/Units Urine Color Yellow Yellow Urine Clarity Clear Clear Urine pH 6.0 5.0-9.0 Urine Specific [place] 1.031 1.001-1.035 Urine Protein 2+ H Negative Urine Ketones Negative Negative Urine Blood Negative Negative /uL Urine Nitrite Negative Negative Urine Bilirubin Negative Negative Urine Urobilinogen 3 H Negative mg/dL Urine Leukocyte Esterase Negative Negative /uL Urine RBC 2 0 - 3 /hpf Urine Microscopic WBC 8 H 0-3 /HPF Urine Squamous Epithelial Cells Few <5 /hpf Urine Bacteria Few H None Seen /hpf Urine Hyaline Casts Few 0 - 2 /lpf Urine Mucus Few None Seen Urine Glucose Trace Normal mg/dL Influenza Type A Antigen Negative Negative Influenza Type B Antigen Negative Negative SARS-CoV-2 Antigen (Rapid) Negative NEGATIVE White Blood Count 12.5 H 4.4-10.8 10^3/uL Red Blood Count 5.74 4.5-5.90 10^6/uL Hemoglobin 17.4 13.5-17.5 g/dL Hematocrit 51.1 41.0-53.0 % Mean Corpuscular Volume 89.1 80.0-100.0 fL Mean Corpuscular Hemoglobin 30.3 28.0-32.0 pg Mean Corpuscular Hemoglobin Concent 34.0 32.0-36.0 g/dL Red Cell Distribution Width 15.1 H 11.8-14.3 % Platelet Count 279 140-450 10^3/uL Mean Platelet Volume 8.1 6.9-10.8 fL Neutrophils (%) (Auto) 83.6 H 37.0-80.0 % Lymphocytes (%) (Auto) 7.3 L 10.0-50.0 % Monocytes (%) (Auto) 8.7 0.0-12.0 % Eosinophils (%) (Auto) 0.2 0.0-7.0 % Basophils (%) (Auto) 0.2 0.0-2.0 % Neutrophils # (Auto) 10.4 H 1.6-8.6 10 ^3/uL Lymphocytes # (Auto) 0.9 0.4-5.4 10 ^3/uL Monocytes # (Auto) 1.1 0-1.3 10 ^3/uL Eosinophils # (Auto) 0 0-0.8 10 ^3/uL Basophils # (Auto) 0 0-0.2 10 ^3/uL Nucleated Red Blood Cells 0.1 % Prothrombin Time 14.1 H 9.3-11.8 sec Prothrombin Time INR 1.37 H 0.9-1.15 Activated Partial Thromboplast Time 29.1 24.5-34.5 SEC Sodium Level 136 136-145 mmol/L Potassium Level 4.4 3.5-5.1 mmol/L Chloride Level 105 98-107 mmol/L Carbon Dioxide Level 19 L 20-31 mmol/L Anion Gap 12 5-15 Blood Urea Nitrogen 27 H 9-23 mg/dL Creatinine 1.12 0.700-1.30 mg/dL Glomerular Filtration Rate Calc 73 >90 mL/min BUN/Creatinine Ratio 24.1 H 10.0-20.0 Serum Glucose 158 H 74-106 mg/dL Hemoglobin A1c 6.1 H <5.7 % A1C Lactic Acid Level 2.7 *H 0.4-2.0 mmol/L Calcium Level 10.3 8.7-10.4 mg/dL Magnesium Level 2.0 1.6-2.6 mg/dL Total Bilirubin 1.5 H 0.2-1.0 mg/dL Aspartate Amino Transferase (AST) 112 H 13-40 U/L Alanine Aminotransferase (ALT) 140 H 7-40 U/L Alkaline Phosphatase 60 46-116 U/L Troponin I High Sensitivity 6 </=54 ng/L B-Type Natriuretic Peptide 39.79 0-100 pg/mL Total Protein 6.5 5.7-8.2 g/dL Albumin 4.5 3.2-4.8 g/dL Assessment IMP: 1) Hemodynamically mediated HORACIO/VMN. Mild hyperkalemia, fluid overload. 2) CKD? Baseline creatinine unknown to the stridor. 3) acute on chronic systolic and diastolic heart failure. 4) right-sided pleural effusion. 5) transaminitis REC: - we will check kidney ultrasound, urine studies, serial chemistry panels, quantify proteinuria - agree with use of loop diuretic as needed to achieve desired ECF fluid volume - general recommendations avoid NSAIDs, intravenous contrast studies if able. - discussed plan of care from Nephrology perspective with the patient and family at bedside. Thank you for consultation. Plan discussed with: Patient, Spouse LEELA GERONIMO MD Oct 06, 2024 15:54
--- NOTE | 2024-10-06 18:05 | DVHPN2 ---
Subjective I am assuming the care of the patient from today onwards. Patient is here for increasing shortness a breath as well as bilateral leg swelling found to have AFib with RVR currently on amiodarone drip. Reviewed: Care Plan Changes from previous H/P or p: No Changes Eyes: No Pain, No Vision change, No Conjunctivae inflammation, No Eyelid inflammation, No Other, No Redness ENT: No Ear pain, No Ear discharge, No Nose pain, No Nose discharge, No Nose congestion, No Mouth pain, No Mouth swelling, No Throat pain, No Throat swelling, No Other Cardiovascular: No Chest Pain; Palpitations; No Orthopnea, No Paroxysmal Noc. Dyspnea, No Edema, No Lt Headedness, No Other Respiratory: No Cough, No Dry; Shortness of breath; No SOB with excertion, No Wheezing, No Hemoptysis, No Pleuritic Pain, No Sputum, No Other Gastrointestinal: No Nausea, No Vomiting, No Abdominal Pain, No Diarrhea, No Constipation, No Melena, No Hematochezia, No Other Genitourinary: No Dysuria, No Frequency, No Incontinence, No Hematuria, No Retention, No Other Musculoskeletal: No other, No neck pain, No shoulder pain, No arm pain, No back pain, No hand pain, No leg pain, No foot pain Skin: No Rash, No Lesions, No Jaundice, No Bruising, No Other Objective Vitals Vital Signs Date Time Temp Pulse Resp B/P (MAP) Pulse Ox O2 Delivery O2 Flow Rate FiO2 10/06/24 16:46 119 31 105/84 (91) 98 10/06/24 16:19 Oxymizer 8 N/A 10/06/24 16:01 98.2 98.2 Intake/Output Intake and Output 10/06/24 07:00 Intake Total 1653.32 ml Balance 1653.32 ml IV Total 1653.32 ml Exam HEENT pupils are reactive Neck is supple CV is S1-S2 irregularly irregular rate and rhythm Respiratory are clear GI positive bowel sound Extremity trace edema 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 Medications Current Medications Medications Dose Ordered Sig/Nadia Route Start Time Stop Time Status Last Admin Dose Admin Digoxin 0.125 mg DAILY PO 10/06/24 10:00 10/06/24 10:46 0.125 MG Vancomycin HCl 0 ml @ 0 mls/hr UD IV 10/05/24 20:45 Levofloxacin/ Dextrose 100 ml @ 100 mls/hr DAILY IV 10/06/24 10:00 10/06/24 10:45 100 MLS/HR Aspirin 81 mg DAILY PO 10/06/24 10:00 10/06/24 10:45 81 MG Ibuprofen 600 mg Q6HP PRN PO 10/05/24 20:45 Sodium Chloride 1,000 ml @ 60 mls/hr [id number] IV 10/05/24 20:45 10/05/24 22:33 60 MLS/HR Acetaminophen/ Hydrocodone Bitart 1 tab Q4HP PRN PO 10/05/24 20:45 Ondansetron HCl 4 mg Q4HP PRN IV 10/05/24 20:45 Docusate Sodium 100 mg BIDPRN PRN PO 10/05/24 20:45 Nitroglycerin 0.4 mg Q5MINP PRN SL 10/05/24 22:30 Morphine Sulfate 2 mg Q30M PRN IV 10/05/24 22:30 Furosemide 40 mg DAILY IV 10/06/24 10:00 10/06/24 10:47 40 MG Vancomycin HCl 200 ml @ 160 mls/hr Q12H IV 10/06/24 14:00 10/06/24 14:23 160 MLS/HR Enoxaparin Sodium 120 mg Q12HR SC 10/06/24 11:56 10/06/24 12:51 120 MG Metoprolol Succinate 25 mg DAILY PO 10/07/24 10:00 Laboratory Results Laboratory Tests 10/06/24 05:00 10/06/24 10:05 Chemistry Test 10/05/24 18:14 10/06/24 05:00 Albumin 4.5 g/dL (3.2-4.8) 4.5 g/dL (3.2-4.8) Calcium Level 10.3 mg/dL (8.7-10.4) 10.2 mg/dL (8.7-10.4) Magnesium Level 2.0 mg/dL (1.6-2.6) Total Protein 6.5 g/dL (5.7-8.2) 6.5 g/dL (5.7-8.2) Coagulation Test 10/05/24 18:14 Prothrombin Time 14.1 sec (9.3-11.8) H Prothrombin Time INR 1.37 (0.9-1.15) H Activated Partial Thromboplast Time 29.1 SEC (24.5-34.5) Cardiac Markers Test 10/05/24 18:14 B-Type Natriuretic Peptide 39.79 pg/mL (0-100) LFT Test 10/05/24 18:14 10/06/24 05:00 Alanine Aminotransferase (ALT) 140 U/L (7-40) H 622 U/L (7-40) H Alkaline Phosphatase 60 U/L (46-116) 69 U/L (46-116) Aspartate Amino Transferase (AST) 112 U/L (13-40) H 732 U/L (13-40) H Total Bilirubin 1.5 mg/dL (0.2-1.0) H 1.1 mg/dL (0.2-1.0) H HgA1c, TSH Test 10/05/24 18:14 10/06/24 10:05 Hemoglobin A1c 6.1 % A1C (<5.7) H Thyroid Stimulating Hormone (TSH) 2.54 uIU/mL (0.55-4.78) Urinalysis Test 10/05/24 18:45 10/06/24 17:49 Urine Color Yellow (Yellow) Urine Clarity Clear (Clear) Urine pH 6.0 (5.0-9.0) Urine Specific [place] 1.031 (1.001-1.035) Urine Protein 2+ (Negative) H Urine Ketones Negative (Negative) Urine Blood Negative /uL (Negative) Urine Nitrite Negative (Negative) Urine Bilirubin Negative (Negative) Urine Urobilinogen 3 mg/dL (Negative) H Urine Leukocyte Esterase Negative /uL (Negative) Urine RBC 2 /hpf (0 - 3) Urine Microscopic WBC 8 /HPF (0-3) H Urine Squamous Epithelial Cells Few /hpf (<5) Urine Bacteria Few /hpf (None Seen) H Urine Hyaline Casts Few /lpf (0 - 2) Urine Mucus Few (None Seen) Urine Glucose Trace mg/dL (Normal) Urine Creatinine Pending Urine Sodium Pending Urine Total Protein Pending Assessment/Plan Assessment/Plan 64-year-old male with a no significant past medical history presented to the hospital with the increasing shortness a breath and leg swelling found to have 1. AFib with RVR 2. Left-sided pleural effusion 3. Hyperkalemia 4. Acute kidney injury suspected secondary to vasomotor nephropathy 5. Transaminitis 6. History of alcoholism 6. 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
[2024-10-06 18:10] LABS: Protein, Urine 84.0 mg/dL (1-14)
--- NOTE | 2024-10-06 18:42 | DVHSR ---
APPROVED REPORT EXAM: Two-dimensional and M-mode echocardiogram with Doppler and color Doppler. Blood Pressure: 109/85 mmHg INDICATION Atrial Fibrillation W/ RVR RISK FACTORS Obesity: Height: 6' 2", Weight: 262 DIMENSIONS LVDd4.8 (3.8-5.7cm)LA (2D)4.8 (1.9-4.0cm)Aortic Root3.4 (2.0-3.7cm) LVDs4.5 (2.5-4.0cm)LA (MM) (1.9-4.0cm)Aortic Cusp Exc2.0 (1.5-2.0cm) EF (%) 20.0 (55-70%)Rt. Atrium4.9 (1.9-4.0cm)Asc. Aorta cm IVSd1.1 (0.7-1.1cm)RV (D) (1.8-2.4cm) PWd1.2 (0.7-1.1cm) Mitral Valve MitralMitral Stenosis E/A ratio0.02D MVAcm2 Aortic Valve Aortic ValveAortic Stenosis LVOT Diameter2.4 (1.8-2.4cm)Doppler AVAcm2 Other Information Quality : Technically LimitedRhythm : Technically limited study due to body habitus and patient position. Conclusion SIGNIFICANTLY DILATED LV SEVERE GLOBAL LV HYPOKINESIS LV EF IS ONLY 15% MODERATELY DILATED LA AND RA NORMAL VALVES MODERATE DEGREE POSTERIOR PERICARIAL EFFUSION,MEASURES APPROXIMATELY 2.5 CM IN WIDTH MILD ANTERIOR PERICARDIAL EFFUSION,MEASURES LEASS THAN 1 CM IN WIDTH NO EVIDENCE OF PERICARDIAL TAMPONADE VERY LARGE PLEURAL EFFUSION IS SUSPECTED
--- NOTE | 2024-10-06 19:04 | DVH ---
INDICATION: HORACIO TECHNIQUE: Ultrasound kidney . Multiple real-time sonographic images of the kidneys and bladder were obtained. COMPARISON: None FINDINGS: The right kidney measures 12.4 cm in length, which is normal in size. There is normal echo genicity of the right kidney. No hydronephrosis. The left kidney not visualized. Lovell catheter in the bladder in the bladder is empty. IMPRESSION: 1. Normal sonographic appearance of the kidneys. No hydronephrosis. 2. Right kidney measures 12.4 cm. 3. Left kidney is not visualized. 4. Bilateral pleural effusions HS:Y
--- NOTE | 2024-10-06 23:53 | DVHINCON2 ---
Date Seen: Oct 06, 2024 Referring Physician CLAU Mackey Reason for Consultation Hypotension History of Present Illness This is a 64-year-old male with a past medical history of neuropathy, tobacco use, previous alcohol abuse, and obesity who presents to the emergency room with a complaint of worsening shortness of breath for approximately two weeks prior to emergency room arrival. Cardiology has been consulted at this time for hypotension. Initial twelve lead electrocardiogram reveals atrial fibrillation with rapid ventricular rate. The patient denies any chest pain or palpitations. Serial troponin levels have been negative. The patient states he does not regularly see a primary care physician. He denies any cardiac history. Chest x- ray showed cardiomegaly with mild congestion, left pleural effusion. Patient was admitted to the hospital. I am asked to consult on this patient. Past Medical History Past medical history reviewed. No other significant than mentioned above. Past Surgical History Hernia repair Family History: Cerebrovascular accident (CVA) FH: cancer Allergies: Coded Allergies: Penicillins (Verified Allergy, Unknown, 10/05/24) Current Medications Current Medications Medications (Trade) Dose Ordered Sig/Nadia Route PRN Reason Start Time Stop Time Status Last Admin Carvedilol (Coreg Tablet) 3.125 mg Q12HR PO 10/05/24 22:00 10/06/24 11:41 DC 10/06/24 10:46 Digoxin (Lanoxin Tablet) 0.125 mg DAILY PO 10/06/24 10:00 10/06/24 10:46 Amiodarone HCl (Cordarone Tablet) 200 mg Q12HR PO 10/05/24 22:00 10/06/24 10:28 DC 10/05/24 22:54 Vancomycin HCl 0 ml @ 0 mls/hr UD IV 10/05/24 20:45 Levofloxacin/ Dextrose 100 ml @ 100 mls/hr DAILY IV 10/06/24 10:00 10/06/24 10:45 Aspirin 81 mg DAILY PO 10/06/24 10:00 10/06/24 10:45 Ibuprofen (Motrin Tablet) 600 mg Q6HP PRN PO PAIN SCALE 1-3 OR TEMP>100.4 10/05/24 20:45 Sodium Chloride 1,000 ml @ 60 mls/hr [id number] IV 10/05/24 20:45 10/05/24 22:33 Acetaminophen/ Hydrocodone Bitart ([place] 5/325MG Tab) 1 tab Q4HP PRN PO MODERATE PAIN (4-6 PAIN SCALE) 10/05/24 20:45 Ondansetron HCl (Zofran) 4 mg Q4HP PRN IV NAUSEA / VOMITING 10/05/24 20:45 Docusate Sodium (Colace Capsule) 100 mg BIDPRN PRN PO FOR CONSTIPATION 10/05/24 20:45 Vancomycin HCl 200 ml @ 200 mls/hr Q1H IV 10/05/24 22:30 10/06/24 00:29 DC 10/05/24 23:39 Nitroglycerin (Ntrostat Sublingual) 0.4 mg Q5MINP PRN SL FOR CHEST PAIN 10/05/24 22:30 Morphine Sulfate 2 mg Q30M PRN IV FOR CHEST PAIN 10/05/24 22:30 Furosemide (Lasix Injection) 40 mg DAILY IV 10/06/24 10:00 10/06/24 10:47 Vancomycin HCl 200 ml @ 160 mls/hr Q12H IV 10/06/24 14:00 Enoxaparin Sodium (Lovenox) 120 mg Q12HR SC 10/06/24 11:56 10/06/24 12:51 Metoprolol Succinate (Toprol Xl) 25 mg DAILY PO 10/07/24 10:00 Review of Systems Constitutional: No symptom reported Ears, Nose, & Throat: No symptom reported Eyes: No symptom reported Neurological: No symptoms reported Pulmonary/Respiratory: Shortness of breath Cardiovascular: No symptom reported Gastrointestinal: No symptom reported Genitourinary: No symptom reported Musculoskeletal: No symptom reported Skin: No symptom reported Psychiatric: No symptom reported Endocrine: No symptom reported Hematologic/Lymphatic: No symptom reported Vital Signs Vital Signs Date Time Temp Pulse Resp B/P (MAP) Pulse Ox O2 Delivery O2 Flow Rate FiO2 10/06/24 12:44 133 13 103/79 (87) 97 10/06/24 12:15 98.6 98.6 10/06/24 12:05 Oxymizer 8 N/A Physical Exam GENERAL: Alert and oriented x 3. No acute distress. Morbidly obese. EYES: PERRL, EOMI. Anicteric. HENT: Moist mucous membranes. LUNGS: Diminished breath sounds. CARDIOVASCULAR: Irregular rate and rhythm. ABDOMEN: Soft, nontender and nondistended. EXTREMITIES: +3 pitting edema. NEUROLOGIC: No focal neurological deficits. SKIN: Warm, dry. Labs/Diagnostic Data Labs Test 10/06/24 10:05 10/06/24 05:00 10/05/24 21:09 10/05/24 18:45 Range/Units Potassium Level 4.6 3.5-5.1 mmol/L Thyroid Stimulating Hormone (TSH) 2.54 0.55-4.78 uIU/mL White Blood Count 13.2 H 4.4-10.8 10^3/uL Red Blood Count 5.59 4.5-5.90 10^6/uL Hemoglobin 16.7 13.5-17.5 g/dL Hematocrit 49.9 41.0-53.0 % Mean Corpuscular Volume 89.4 80.0-100.0 fL Mean Corpuscular Hemoglobin 30.0 28.0-32.0 pg Mean Corpuscular Hemoglobin Concent 33.5 32.0-36.0 g/dL Red Cell Distribution Width 15.4 H 11.8-14.3 % Platelet Count 270 140-450 10^3/uL Mean Platelet Volume 8.4 6.9-10.8 fL Neutrophils (%) (Auto) 83.1 H 37.0-80.0 % Lymphocytes (%) (Auto) 6.7 L 10.0-50.0 % Monocytes (%) (Auto) 10.0 0.0-12.0 % Eosinophils (%) (Auto) 0.0 0.0-7.0 % Basophils (%) (Auto) 0.2 0.0-2.0 % Neutrophils # (Auto) 11.0 H 1.6-8.6 10 ^3/uL Lymphocytes # (Auto) 0.9 0.4-5.4 10 ^3/uL Monocytes # (Auto) 1.3 0-1.3 10 ^3/uL Eosinophils # (Auto) 0 0-0.8 10 ^3/uL Basophils # (Auto) 0 0-0.2 10 ^3/uL Nucleated Red Blood Cells 0.1 % Sodium Level 136 136-145 mmol/L Chloride Level 103 98-107 mmol/L Carbon Dioxide Level 23 20-31 mmol/L Anion Gap 10 5-15 Blood Urea Nitrogen 35 H 9-23 mg/dL Creatinine 1.85 H 0.700-1.30 mg/dL Glomerular Filtration Rate Calc 40 >90 mL/min BUN/Creatinine Ratio 18.9 10.0-20.0 Serum Glucose 154 H 74-106 mg/dL Calcium Level 10.2 8.7-10.4 mg/dL Total Bilirubin 1.1 H 0.2-1.0 mg/dL Aspartate Amino Transferase (AST) 732 H 13-40 U/L Alanine Aminotransferase (ALT) 622 H 7-40 U/L Alkaline Phosphatase 69 46-116 U/L Total Protein 6.5 5.7-8.2 g/dL Albumin 4.5 3.2-4.8 g/dL Lactic Acid Level 2.9 *H 0.4-2.0 mmol/L Troponin I High Sensitivity 7 </=54 ng/L Urine Color Yellow Yellow Urine Clarity Clear Clear Urine pH 6.0 5.0-9.[address] [place] 1.031 1.001-1.035 Urine Protein 2+ H Negative Urine Ketones Negative Negative Urine Blood Negative Negative /uL Urine Nitrite Negative Negative Urine Bilirubin Negative Negative Urine Urobilinogen 3 H Negative mg/dL Urine Leukocyte Esterase Negative Negative /uL Urine RBC 2 0 - 3 /hpf Urine Microscopic WBC 8 H 0-3 /HPF Urine Squamous Epithelial Cells Few <5 /hpf Urine Bacteria Few H None Seen /hpf Urine Hyaline Casts Few 0 - 2 /lpf Urine Mucus Few None Seen Urine Glucose Trace Normal mg/dL Test 10/05/24 18:40 10/05/24 18:14 Range/Units Influenza Type A Antigen Negative Negative Influenza Type B Antigen Negative Negative SARS-CoV-2 Antigen (Rapid) Negative NEGATIVE Prothrombin Time 14.1 H 9.3-11.8 sec Prothrombin Time INR 1.37 H 0.9-1.15 Activated Partial Thromboplast Time 29.1 24.5-34.5 SEC Hemoglobin A1c 6.1 H <5.7 % A1C Magnesium Level 2.0 1.6-2.6 mg/dL B-Type Natriuretic Peptide 39.79 0-100 pg/mL Assessment Atrial fibrillation with rapid ventricular response, newly diagnosed. Rule out structural heart disease. Left pleural effusion. Sepsis. Hyperkalemia. Acute kidney injury. Transaminitis. Prediabetes. History of alcoholism. Morbidly obese. Plan/Recommendation I agree with your ongoing assessment and care of plan. Patient has been seen by Claudia Camp NP on my behalf, her and I discussed the plan with the patient. Transthoracic echocardiogram to evaluate cardiac function. Diuresis as tolerated. ?[id number] VASC score: 1 point, HAS-BLED score: 1 point. Initiate therapeutic Lovenox, transition to NOAC when appropriate. Beta-aurelio for rate control. Continue amiodarone drip at 1mg/min per Dr. Jeronimo. Digoxin for rate control. Monitor and replete electrolytes as needed. Close Cardiac surveillance. Additional plan as per the hospital course. Plan discussed with: Patient NYHA Physical activity limitations: NA Date of Service: Oct 06, 2024 Billing Provider: XIOMY JERONIMO MD Cardiology Common Codes: 71486-[id number] INP/OBS CARE (High) Cardiology Consultation Codes: [id number] CONSULT <45MIN XIOMY JERONIMO MD Oct 06, 2024 14:03
[2024-10-07] VITALS (25 sets, daily range): BP systolic 99–124; BP diastolic 61–102; PULSE 94–116; RESP 12–24; TEMP 97.3–98.1; O2SAT 93–97
--- NOTE | 2024-10-07 00:12 | DVH ---
CT Chest without intravenous contrast INDICATION: sob TECHNIQUE: Multidetector spiral CT of the chest was performed from the lung apices to the upper abdom en. Axial, coronal and sagittal multiplanar reformats were performed. Radiation Dose : 1. Chest: CTDI volume is mGy. Dose-length product is mGy*cm The dose indicators for CT are the volume Computed Tomography (CT) Dose Index (CTDIvol) and the Dose Length Product (DLP), and are measured in units of mGy and mGy-cm, respectively. These indicators are not patient dose, but values generated from the CT scanner acquisition factors. The report includes radiation exposure data for exposures received during this examination. Comparison: None Findings: Lower neck: Normal thyroid. Lungs: Large left pleural effusion with adjacent compressive atelectasis. Small right pleural effusio n with adjacent atelectasis at the lung base. Heart/Vascular Structures: Normal heart size. Moderate pericardial effusion is slightly hyperdense wh en compared to adjacent pleural fluid. Lymph Nodes: No adenopathy Musculoskeletal: No acute osseous abnormality. Soft tissues: Normal. Upper abdomen: Limited portions of the upper abdomen are unremarkable. IMPRESSION: 1. Large left and small right pleural effusions with adjacent compressive atelectasis. 2. Moderate slightly hyperdense pericardial effusion. Correlate with potential causes of hemopericard ium. Radiation optimization: All CT scans at this facility use at least one of these dose optimization kota hniques: automated exposure control mA and/or kV adjustment per patient size (includes targeted exam s where dose is matched to clinical indication) or iterative reconstruction.
[2024-10-07 04:37] LABS: Hematocrit 47.9 % (41.0-53.0); Hemoglobin 16.0 g/dL (13.5-17.5); Mean Corpuscular Hemoglobin 30.0 pg (28.0-32.0); Mean Corpuscular Volume 89.7 fL (80.0-100.0); Nucleated Red Blood Cells % 0.2 %
--- NOTE | 2024-10-07 08:40 | ECG ---
[facility] Test Date: 2024-10-05 Test Time: 17:43:21 Pat Name: REYMUNDO WILDE Department: ER Room: 0295T Gender: M Receiving Lead: LUAN : 1960 Requested By: MARIA GUADALUPE MOLINA Order Number: [id number] Reading MD: Mahin Gracia Measurements Intervals [place] Rate: 179 P: 0 MT: 0 QRS: 19 QRSD: 87 T: 131 QT: 256 QTc: 442 Interpretive Statements Atrial fibrillation with rapid V-rate Paired ventricular premature complexes Anterior infarct, old Nonspecific T abnormalities, lateral leads Electronically Signed On 10-10-2024 20:42:10 PDT by Mahin Gracia Please click the below link to view image of tracing.
[2024-10-07] MEDS: AMIODARONE 360mg/200mL PREMIX 200 ML IV SCH (09:55)
[2024-10-07] MEDS: METOPROLOL SUCCINATE XL 50 MG TAB PO SCH (11:01)
[2024-10-07 11:03] LABS: Chloride 101 mmol/L (98-107); Potassium 4.4 mmol/L (3.5-5.1)
[2024-10-07 11:04] LABS: Anion Gap 16 (5-15); Calcium 9.9 mg/dL (8.7-10.4)
[2024-10-07 11:09] LABS: BUN/Creatinine Ratio 22.0 (10.0-20.0)
[2024-10-07 11:20] LABS: Blood Urea Nitrogen 42 mg/dL (9-23); Carbon Dioxide 19 mmol/L (20-31); Glucose 163 mg/dL (74-106); Sodium 136 mmol/L (136-145)
--- NOTE | 2024-10-07 12:43 | DVH ---
XY CHEST PORTABLE, HISTORY: RESPIRATORY FAILURE COMPARISON: XY CHEST PORTABLE on DOS: 10/05/24 XY CHEST PORTABLE on DOS: 10/05/24 TECHNICAL DATA: 1 view of the chest was obtained. FINDINGS: Lines and tubes: None Cardiomediastinal silhouette: normal Pulmonary vasculature: normal Lung expansion: normal Lung airspace: Left lung white out. Lung interstitium: normal Pleura: Pneumothorax: no Bones: Unremarkable Other: no IMPRESSION: Left lung white out could be consolidation and or effusion.
--- NOTE | 2024-10-07 13:25 | DVH ---
CLINICAL HISTORY: 64 years old, Male; enlarging left pleural effusion. TECHNIQUE: Grayscale sonographic imaging of the chest was performed to evaluate for pleural effusion s. COMPARISON: Chest radiograph dated 10/07/2024, renal ultrasound, which included evaluation for pleura l effusions, dated 10/06/2024, and CT chest dated 10/05/2024. FINDINGS: Bilateral pleural effusions are seen, left greater than right. IMPRESSION: Bilateral pleural effusions, left greater than right.
[2024-10-07] MEDS: HYDROcodone-ACET 5/325MG TAB PO PRN (14:18)
[2024-10-07] MEDS: DOCUSATE SOD 100 MG CAP PO PRN (14:18)
--- NOTE | 2024-10-07 14:22 | DVHNC2 ---
Procedure - Ultrasound-guided thoracentesis procedure note: Physician: Dr Jeni Bynum/Tray Ngo Time out time: 1401 pm Patient medications and allergies reviewed. The risks and benefits of the procedure and the sedation options and risk were discussed with the patient's healthcare proxy. All questions were answered and informed consent was ob tained. Patient identification and proposed procedure were verified prior to the procedure by the physician, and a nurse in the patient's room. The heart rate, respiratory rate, oxygen saturations, blood pressure, adequacy of pulmonary ventilation, and response to care were monitored throughout the procedure. The physical status of the patient was reassessed after the procedure. Date: 10/07/2024 Consent: Consent was obtained from patient prior to procedure. Indication, risks, and benefits were explained at length. Procedure summary: A timeout was performed and a chest x-ray was reviewed prior to procedure. The appropriate site was confirmed and marked. My hands were washed immediately prior to the procedure, I wore a surgical cap, mask with protective eyewear, sterile gown and sterile gloves throughout the procedure. The patient was prepped and draped in a sterile manner using chlorhexidine scrub after the appropriate level was percussed and confirmed by ultrasound. 1% lidocaine was used to anesthetize the skin, subcutaneous tissue, superior aspect of the rib periosteum and parietal pleura. A finder needle was then introduced over the superior aspect of the rib to locate the pleural fluid; yellow fluid was aspirated. Thoracentesis needle was then introduced through the skin incision into the pleural space using negative aspiration pressure. The thoracentesis catheter was then threaded without difficulty. 2200 mL's of yellow colored fluid were removed without difficulty. The catheter was then removed. No immediate complications were noted during the procedure. A postprocedure chest x-ray is pending at the time of this note. The pleural fluid will be sent for cultures and cytology. Estimated blood loss is less than 5 mL's. CPT: 53880 ASHWINI COTTRELL MD Oct 07, 2024 14:22
--- NOTE | 2024-10-07 15:09 | DVH ---
CHEST RADIOGRAPH Indication: S/P LEFT THORACENTESIS Technique: Single frontal view of the chest was obtained Comparison: XY CHEST PORTABLE on DOS: 10/07/24, XY CHEST PORTABLE on DOS: 10/05/24 FINDINGS: Lines and Tubes: None Lungs: Decreased left pleural effusion when compared 10/07/2024 945 am. No pneumothorax seen on the left. Distant disease, residual pleural effusion or atelectasis in the left lower lobe Atelectasis in the right base. Pleura: No effusion. No pneumothorax. Cardiomediastinal contours: Unremarkable Bones: No acute osseous abnormality. IMPRESSION: 1. Decreased left pleural effusion with no pneumothorax 2. Residual opacification left mid and lower lung field may represent infiltrate atelectasis or resid ual pleural effusion. 3. Atelectasis in the right base. 4. 5. HS:Y .
[2024-10-07] MEDS: AMIODARONE HCL 200 MG TAB PO SCH (15:14)
--- NOTE | 2024-10-07 15:58 | DVHPN2 ---
Progress Note Date Seen: Oct 07, 2024 Medical Necessity Reason Pt with a Central, PICC or Fol: Yes Subjective Review of Systems Pt reports he had thoracentesis today. Patient reports: No new complaints, Feels better Objective vital signs Vital Sign Date Time Temp Pulse Resp B/P (MAP) Pulse Ox O2 Delivery O2 Flow Rate FiO2 10/07/24 15:00 112 17 110/71 (84) 97 10/07/24 14:00 Oxymizer 8 N/A 10/07/24 12:00 97.6 97.6 Total Intake and Output 10/06/24 10/06/24 10/07/24 15:00 23:00 07:00 Intake Total 633.32 ml 786.64 ml 826.64 ml Output Total 500 ml 700 ml Balance 633.32 ml 286.64 ml 126.64 ml medications Current Medications Medications Dose Ordered Sig/Nadia Route Start Time Stop Time Status Last Admin Dose Admin Digoxin 0.125 mg DAILY PO 10/06/24 10:00 10/07/24 09:19 0.125 MG Vancomycin HCl 0 ml @ 0 mls/hr UD IV 10/05/24 20:45 Levofloxacin/ Dextrose 100 ml @ 100 mls/hr DAILY IV 10/06/24 10:00 10/07/24 09:20 100 MLS/HR Aspirin 81 mg DAILY PO 10/06/24 10:00 10/07/24 09:19 81 MG Ibuprofen 600 mg Q6HP PRN PO 10/05/24 20:45 Acetaminophen/ Hydrocodone Bitart 1 tab Q4HP PRN PO 10/05/24 20:45 10/07/24 14:18 1 TAB Ondansetron HCl 4 mg Q4HP PRN IV 10/05/24 20:45 Docusate Sodium 100 mg BIDPRN PRN PO 10/05/24 20:45 10/07/24 14:18 100 MG Nitroglycerin 0.4 mg Q5MINP PRN SL 10/05/24 22:30 Morphine Sulfate 2 mg Q30M PRN IV 10/05/24 22:30 Furosemide 40 mg DAILY IV 10/06/24 10:00 10/07/24 09:20 40 MG Enoxaparin Sodium 120 mg Q12HR SC 10/06/24 11:56 10/07/24 09:20 120 MG Metoprolol Succinate 25 mg DAILY PO 10/07/24 10:00 10/07/24 11:01 25 MG Amiodarone HCl 200 mg Q12HR PO 10/07/24 15:00 10/07/24 15:14 200 MG Examination Gen: NAD, appears stated age Lungs: Bilateral LL diminished breath sounds Heart: RRR, Normal S1 and S2 Ext: + BLE edema Neuro: A&O x4 laboratory and microbiology Laboratory Tests 10/07/24 04:16 Test 10/07/24 04:16 Range/Units Serum Glucose 163 H 74-106 mg/dL Microbiology Date/Time Source Procedure Growth Status 10/06/24 12:31 Nose MRSA Screen - Final Complete 10/05/24 19:19 Blood Blood Culture - Preliminary NO GROWTH AFTER 24 HOURS OF INCUBATION. Resulted Labs and/or images reviewed: Labs reviewed by me Problem List/Assessment/Plan Problem List/Assessment/Plan IMP: 1) Hemodynamically mediated HORACIO/VMN. - fluid overload. 2) CKD? 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 3) acute on chronic systolic and diastolic heart failure. 4) right-sided pleural effusion- s/p thoracentesis 5) transaminitis REC: - Serial chemistry panels - Strict I&Os - Agree with use of loop diuretic as needed to achieve desired ECF fluid volume - Avoidance of NSAIDs, intravenous contrast studies if able. - Will continue to follow Plan discussed with: Patient My Orders My Orders Orders - ÁNGELA DOWNS Procedure Category Date Status Time Basic Metabolic Panel LAB 10/08/24 Verified 04:00 ÁNGELA ODWNS Oct 07, 2024 15:58
--- NOTE | 2024-10-07 17:15 | DVHPN2 ---
Subjective Patient is here for increasing shortness a breath as well as bilateral leg swelling found to have AFib with RVR currently on amiodarone drip. Patient underwent left thoracentesis today in which 2200 mL was drained. Reviewed: Care Plan Changes from previous H/P or p: No Changes Eyes: No Pain, No Vision change, No Conjunctivae inflammation, No Eyelid inflammation, No Other, No Redness ENT: No Ear pain, No Ear discharge, No Nose pain, No Nose discharge, No Nose congestion, No Mouth pain, No Mouth swelling, No Throat pain, No Throat swelling, No Other Cardiovascular: No Chest Pain; Palpitations; No Orthopnea, No Paroxysmal Noc. Dyspnea, No Edema, No Lt Headedness, No Other Respiratory: No Cough, No Dry; Shortness of breath; No SOB with excertion, No Wheezing, No Hemoptysis, No Pleuritic Pain, No Sputum, No Other Gastrointestinal: No Nausea, No Vomiting, No Abdominal Pain, No Diarrhea, No Constipation, No Melena, No Hematochezia, No Other Genitourinary: No Dysuria, No Frequency, No Incontinence, No Hematuria, No Retention, No Other Musculoskeletal: No other, No neck pain, No shoulder pain, No arm pain, No back pain, No hand pain, No leg pain, No foot pain Skin: No Rash, No Lesions, No Jaundice, No Bruising, No Other Objective Vitals Vital Signs Date Time Temp Pulse Resp B/P (MAP) Pulse Ox O2 Delivery O2 Flow Rate FiO2 10/07/24 16:00 21 95 Oxymizer 6 N/A 10/07/24 16:00 105 10/07/24 15:00 110/71 (84) 10/07/24 12:00 97.6 97.6 Intake/Output Intake and Output 10/07/24 07:00 Intake Total 2246.60 ml Output Total 1200 ml Balance 1046.60 ml Intake Oral 660 ml IV Total 1586.60 ml Output Urine Total 1200 ml Stool Total 0 ml Exam HEENT pupils are reactive Neck is supple CV is S1-S2 irregularly irregular rate and rhythm Respiratory bilateral diminished breath sounds left more than right GI positive bowel sound Extremity 2+ pitting edema [employer]OURCE [employer]INE[employer] no motor deficit Medications Current Medications Medications Dose Ordered Sig/Nadia Route Start Time Stop Time Status Last Admin Dose Admin Digoxin 0.125 mg DAILY PO 10/06/24 10:00 10/07/24 09:19 0.125 MG Vancomycin HCl 0 ml @ 0 mls/hr UD IV 10/05/24 20:45 Levofloxacin/ Dextrose 100 ml @ 100 mls/hr DAILY IV 10/06/24 10:00 10/07/24 09:20 100 MLS/HR Aspirin 81 mg DAILY PO 10/06/24 10:00 10/07/24 09:19 81 MG Ibuprofen 600 mg Q6HP PRN PO 10/05/24 20:45 Acetaminophen/ Hydrocodone Bitart 1 tab Q4HP PRN PO 10/05/24 20:45 10/07/24 14:18 1 TAB Ondansetron HCl 4 mg Q4HP PRN IV 10/05/24 20:45 Docusate Sodium 100 mg BIDPRN PRN PO 10/05/24 20:45 10/07/24 14:18 100 MG Nitroglycerin 0.4 mg Q5MINP PRN SL 10/05/24 22:30 Morphine Sulfate 2 mg Q30M PRN IV 10/05/24 22:30 Furosemide 40 mg DAILY IV 10/06/24 10:00 10/07/24 09:20 40 MG Enoxaparin Sodium 120 mg Q12HR SC 10/06/24 11:56 10/07/24 09:20 120 MG Metoprolol Succinate 25 mg DAILY PO 10/07/24 10:00 10/07/24 11:01 25 MG Amiodarone HCl 200 mg Q12HR PO 10/07/24 15:00 10/07/24 15:14 200 MG Laboratory Results Laboratory Tests 10/07/24 04:16 Chemistry Test 10/07/24 04:16 Calcium Level 9.9 mg/dL (8.7-10.4) Phosphorus Level 5.4 mg/dL (2.4-5.1) H Urinalysis Test 10/05/24 18:45 10/06/24 17:49 Urine Color Yellow (Yellow) Urine Clarity Clear (Clear) Urine pH 6.0 (5.0-9.0) Urine Specific [place] 1.031 (1.001-1.035) Urine Protein 2+ (Negative) H Urine Ketones Negative (Negative) Urine Blood Negative /uL (Negative) Urine Nitrite Negative (Negative) Urine Bilirubin Negative (Negative) Urine Urobilinogen 3 mg/dL (Negative) H Urine Leukocyte Esterase Negative /uL (Negative) Urine RBC 2 /hpf (0 - 3) Urine Microscopic WBC 8 /HPF (0-3) H Urine Squamous Epithelial Cells Few /hpf (<5) Urine Bacteria Few /hpf (None Seen) H Urine Hyaline Casts Few /lpf (0 - 2) Urine Mucus Few (None Seen) Urine Glucose Trace mg/dL (Normal) Urine Creatinine 97.15 mg/dL (30.0-125.0) Urine Sodium < 10 mmol/L (40-220) L Urine Total Protein 84.0 mg/dL (1-14) H Microbiology Microbiology Date/Time Source Procedure Growth Status 10/06/24 12:31 Nose MRSA Screen - Final Complete 10/05/24 19:19 Blood Blood Culture - Preliminary NO GROWTH AFTER 24 HOURS OF INCUBATION. Resulted Assessment/Plan Assessment/Plan 64-year-old male with a no significant past medical history presented to the hospital with the increasing shortness a breath and leg swelling found to have 1. AFib with RVR 2. Left-sided pleural effusion status post thoracentesis 3. Hyperkalemia, improved 4. Acute kidney injury suspected secondary to vasomotor nephropathy 5. Transaminitis 6. History of alcoholism 6. Morbid obesity classI -patient amiodarone drip, therapeutic Lovenox, cardiology follow up, risks benefits and alternatives therapeutic Lovenox including life-threatening bleeding, disability explained to the patient in detail who understand verbalized understanding and agreeable to plan Plan discussed with: Patient My Orders Orders - SAIMA SAUNDERS MD Procedure Category Date Status Time Communication Order ORDERS 10/06/24 Transmitted 18:51 Chest Portable XY 10/07/24 Resulted 09:40 Transfer Orders XFER 10/07/24 Transmitted 14:34 Date of Service: Oct 07, 2024 Billing Provider: SAIMA SAUNDERS MD Common Visit Codes: [id number] INP/OBS CARE(MOD) SAIMA SAUNDERS MD Oct 07, 2024 17:15
--- NOTE | 2024-10-07 23:30 | DVHPN2 ---
Progress Note - Dictate Date Seen: Oct 07, 2024 Medical Necessity Reason Pt with a Central, PICC or Fol: No Subjective Patient was seen and evaluated in follow up. Patient is c/o SOB. Patient is in Afib RVR, receiving IV amiodarone. Patient underwent left thoracentesis with 2200 mL drained. WBC 13, CO2 19, BUN 42, BASE FILLER 1.91. Chest x-ray shows decreased left pleural effusion with no pneumothorax. Residual opacification left mid and lower lung field may represent infiltrate atelectasis or residual pleural effusion. Atelectasis in the right base. Telemetry reviewed. vital signs Vital Sign Date Time Temp Pulse Resp B/P (MAP) Pulse Ox O2 Delivery O2 Flow Rate FiO2 10/07/24 18:18 97 10/07/24 18:00 17 106/70 (82) 94 10/07/24 18:00 Oxymizer 5 N/A 10/07/24 16:00 98.0 98.0 Total Intake and Output 10/06/24 10/06/24 10/07/24 15:00 23:00 07:00 Intake Total 633.32 ml 786.64 ml 826.64 ml Output Total 500 ml 700 ml Balance 633.32 ml 286.64 ml 126.64 ml medications Current Medications Medications Dose Ordered Sig/Nadia Route Start Time Stop Time Status Last Admin Dose Admin Digoxin 0.125 mg DAILY PO 10/06/24 10:00 10/07/24 09:19 0.125 MG Vancomycin HCl 0 ml @ 0 mls/hr UD IV 10/05/24 20:45 Levofloxacin/ Dextrose 100 ml @ 100 mls/hr DAILY IV 10/06/24 10:00 10/07/24 09:20 100 MLS/HR Aspirin 81 mg DAILY PO 10/06/24 10:00 10/07/24 09:19 81 MG Ibuprofen 600 mg Q6HP PRN PO 10/05/24 20:45 Acetaminophen/ Hydrocodone Bitart 1 tab Q4HP PRN PO 10/05/24 20:45 10/07/24 14:18 1 TAB Ondansetron HCl 4 mg Q4HP PRN IV 10/05/24 20:45 Docusate Sodium 100 mg BIDPRN PRN PO 10/05/24 20:45 10/07/24 14:18 100 MG Nitroglycerin 0.4 mg Q5MINP PRN SL 10/05/24 22:30 Morphine Sulfate 2 mg Q30M PRN IV 10/05/24 22:30 Furosemide 40 mg DAILY IV 10/06/24 10:00 10/07/24 09:20 40 MG Enoxaparin Sodium 120 mg Q12HR SC 10/06/24 11:56 10/07/24 09:20 120 MG Metoprolol Succinate 25 mg DAILY PO 10/07/24 10:00 10/07/24 11:01 25 MG Amiodarone HCl 200 mg Q12HR PO 10/07/24 15:00 10/07/24 15:14 200 MG objective GENERAL: Alert and oriented x 3. No acute distress. Morbidly obese. EYES: PERRL, EOMI. Anicteric. HENT: Moist mucous membranes. LUNGS: Diminished breath sounds. CARDIOVASCULAR: Irregular rate and rhythm. ABDOMEN: Soft, nontender and nondistended. EXTREMITIES: +3 pitting edema. NEUROLOGIC: No focal neurological deficits. SKIN: Warm, dry. laboratory and microbiology Laboratory Tests 10/07/24 04:16 Test 10/07/24 04:16 Range/Units Serum Glucose 163 H 74-106 mg/dL Problem List Atrial fibrillation with rapid ventricular response, newly diagnosed. Rule out structural heart disease. Left pleural effusion. Sepsis. Hyperkalemia. Acute kidney injury. Transaminitis. Prediabetes. History of alcoholism. Morbidly obese. Assessment/Plan Continued all current supportive medical care. Morphine and [place] for pain management. IV Amiodarone. Aspirin, Metoprolol. Digoxin. DVT prophylactics. Diuretics with Lasix. IV antibiotics as ordered. Additional plan as per the hospital course. Plan discussed with: Patient XIOMY JERONIMO MD Oct 07, 2024 19:15
[2024-10-08] VITALS (24 sets, daily range): BP systolic 87–117; BP diastolic 48–87; PULSE 81–118; RESP 9–24; TEMP 97.2–98.4; O2SAT 93–97
[2024-10-08 06:06] LABS: Hematocrit 46.8 % (41.0-53.0); Hemoglobin 15.8 g/dL (13.5-17.5); Mean Corpuscular Hemoglobin 30.0 pg (28.0-32.0); Mean Corpuscular Volume 89.0 fL (80.0-100.0); Nucleated Red Blood Cells % 0.1 %
[2024-10-08 06:28] LABS: Chloride 101 mmol/L (98-107); Potassium 3.8 mmol/L (3.5-5.1); Sodium 137 mmol/L (136-145)
[2024-10-08 06:29] LABS: Anion Gap 11 (5-15); Carbon Dioxide 25 mmol/L (20-31)
[2024-10-08 06:30] LABS: Calcium 9.5 mg/dL (8.7-10.4)
[2024-10-08 06:35] LABS: BUN/Creatinine Ratio 24.8 (10.0-20.0)
[2024-10-08 06:37] LABS: Glucose 113 mg/dL (74-106)
[2024-10-08 06:39] LABS: Blood Urea Nitrogen 36 mg/dL (9-23)
[2024-10-08] MEDS: VANCOMYCIN 1GM/200ML PM 200 ML IV SCH (10:56)
--- NOTE | 2024-10-08 11:16 | DVHPN2 ---
Progress Note Date Seen: Oct 08, 2024 Medical Necessity Reason Pt with a Central, PICC or Fol: Yes The following are medically ne: Dean Catheter Reason for dean catheter: Strict I&O Subjective Patient reports: Feels better Review of Systems: CVS:Abnormal, RESPIRATORY:Abnormal Objective vital signs Vital Sign Date Time Temp Pulse Resp B/P (MAP) Pulse Ox O2 Delivery O2 Flow Rate FiO2 10/08/24 10:00 10 93 Oxymizer 5 N/A 10/08/24 10:00 101 99/70 (80) 10/08/24 04:00 97.8 97.8 Total Intake and Output 10/07/24 10/07/24 10/08/24 15:00 23:00 07:00 Intake Total 216.64 ml 500 ml 50 ml Output Total 3100 ml 850 ml Balance 216.64 ml -2600 ml -800 ml medications Current Medications Medications Dose Ordered Sig/Nadia Route Start Time Stop Time Status Last Admin Dose Admin Digoxin 0.125 mg DAILY PO 10/06/24 10:00 10/08/24 08:42 0.125 MG Vancomycin HCl 0 ml @ 0 mls/hr UD IV 10/05/24 20:45 Levofloxacin/ Dextrose 100 ml @ 100 mls/hr DAILY IV 10/06/24 10:00 10/08/24 08:42 100 MLS/HR Aspirin 81 mg DAILY PO 10/06/24 10:00 10/08/24 08:44 81 MG Ibuprofen 600 mg Q6HP PRN PO 10/05/24 20:45 Acetaminophen/ Hydrocodone Bitart 1 tab Q4HP PRN PO 10/05/24 20:45 10/07/24 14:18 1 TAB Ondansetron HCl 4 mg Q4HP PRN IV 10/05/24 20:45 Docusate Sodium 100 mg BIDPRN PRN PO 10/05/24 20:45 10/07/24 14:18 100 MG Nitroglycerin 0.4 mg Q5MINP PRN SL 10/05/24 22:30 Morphine Sulfate 2 mg Q30M PRN IV 10/05/24 22:30 Furosemide 40 mg DAILY IV 10/06/24 10:00 10/08/24 08:44 40 MG Enoxaparin Sodium 120 mg Q12HR SC 10/06/24 11:56 10/08/24 08:45 120 MG Metoprolol Succinate 25 mg DAILY PO 10/07/24 10:00 10/08/24 08:45 25 MG Amiodarone HCl 200 mg Q12HR PO 10/07/24 15:00 10/08/24 08:42 200 MG Vancomycin HCl 250 ml @ 200 mls/hr Q12H IV 10/08/24 14:00 UNV Vancomycin HCl 200 ml @ 200 mls/hr Q12H IV 10/08/24 11:00 10/08/24 10:56 200 MLS/HR Examination: GENERAL:Abnormal, LUNGS:Abnormal, CVS:Abnormal laboratory and microbiology Laboratory Tests 10/08/24 05:25 Test 10/08/24 05:25 Range/Units Serum Glucose 113 H 74-106 mg/dL Microbiology Date/Time Source Procedure Growth Status 10/07/24 14:06 Pleural Fluid Gram Stain - Final Resulted 10/07/24 14:06 Pleural Fluid Body Fluid Culture - Preliminary Resulted 10/06/24 12:31 Nose MRSA Screen - Final Complete 10/05/24 19:19 Blood Blood Culture - Preliminary NO GROWTH AFTER 48 HOURS OF INCUBATION. Resulted Problem List/Assessment/Plan Problem List/Assessment/Plan 64 year old male admitted to hospital with sob and transferred to ICU for Afib RVR Acute kidney injury due to hypotension ckd cr 1.1 on admission severe systolic HF EF 15%, large pleural effusions pericardial effusions afib RVR US kidney left kidney not visualized, R kidney 12cm rec repeat US in next few days patient has no previous medical followup severely hypervolemic increase lasix dose daily negative fluid balance, fluid restriction currently as dean rate control and avoid hypotension cardiology Plan discussed with: Patient, Daughter HUONG SHEPPARD MD Oct 08, 2024 11:16
[2024-10-08] MEDS ORDERED: VANCOMYCIN 1.25GM/250ML 250 ML IV SCH (14:00)
[2024-10-08] MEDS: FUROSEMIDE 20 MG/2 ML VIAL IV ONE (14:22)
--- NOTE | 2024-10-08 17:09 | DVHPN2 ---
Subjective Patient is currently off of amiodarone drip, on IV diuretics. Reviewed: Care Plan Changes from previous H/P or p: No Changes Eyes: No Pain, No Vision change, No Conjunctivae inflammation, No Eyelid inflammation, No Other, No Redness ENT: No Ear pain, No Ear discharge, No Nose pain, No Nose discharge, No Nose congestion, No Mouth pain, No Mouth swelling, No Throat pain, No Throat swelling, No Other Cardiovascular: No Chest Pain; Palpitations; No Orthopnea, No Paroxysmal Noc. Dyspnea, No Edema, No Lt Headedness, No Other Respiratory: No Cough, No Dry; Shortness of breath; No SOB with excertion, No Wheezing, No Hemoptysis, No Pleuritic Pain, No Sputum, No Other Gastrointestinal: No Nausea, No Vomiting, No Abdominal Pain, No Diarrhea, No Constipation, No Melena, No Hematochezia, No Other Genitourinary: No Dysuria, No Frequency, No Incontinence, No Hematuria, No Retention, No Other Musculoskeletal: No other, No neck pain, No shoulder pain, No arm pain, No back pain, No hand pain, No leg pain, No foot pain Skin: No Rash, No Lesions, No Jaundice, No Bruising, No Other Objective Vitals Vital Signs Date Time Temp Pulse Resp B/P (MAP) Pulse Ox O2 Delivery O2 Flow Rate FiO2 10/08/24 16:00 106 10/08/24 16:00 24 95 Oxymizer 5 N/A 10/08/24 16:00 97.6 100/67 (78) 97.6 Intake/Output Intake and Output 10/08/24 07:00 Intake Total 766.64 ml Output Total 3950 ml Balance -3183.36 ml Intake Oral 550 ml IV Total 216.64 ml Output Urine Total 1750 ml Other 2200 ml Exam HEENT pupils are reactive Neck is supple CV is S1-S2 irregularly irregular rate and rhythm Respiratory bilateral diminished breath sounds left more than right GI positive bowel sound Extremity 2+ pitting edema 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 Medications Current Medications Medications Dose Ordered Sig/Nadia Route Start Time Stop Time Status Last Admin Dose Admin Digoxin 0.125 mg DAILY PO 10/06/24 10:00 10/08/24 08:42 0.125 MG Vancomycin HCl 0 ml @ 0 mls/hr UD IV 10/05/24 20:45 Levofloxacin/ Dextrose 100 ml @ 100 mls/hr DAILY IV 10/06/24 10:00 10/08/24 08:42 100 MLS/HR Aspirin 81 mg DAILY PO 10/06/24 10:00 10/08/24 08:44 81 MG Acetaminophen/ Hydrocodone Bitart 1 tab Q4HP PRN PO 10/05/24 20:45 10/07/24 14:18 1 TAB Ondansetron HCl 4 mg Q4HP PRN IV 10/05/24 20:45 Docusate Sodium 100 mg BIDPRN PRN PO 10/05/24 20:45 10/07/24 14:18 100 MG Nitroglycerin 0.4 mg Q5MINP PRN SL 10/05/24 22:30 Morphine Sulfate 2 mg Q30M PRN IV 10/05/24 22:30 Enoxaparin Sodium 120 mg Q12HR SC 10/06/24 11:56 10/08/24 08:45 120 MG Metoprolol Succinate 25 mg DAILY PO 10/07/24 10:00 10/08/24 08:45 25 MG Amiodarone HCl 200 mg Q12HR PO 10/07/24 15:00 10/08/24 08:42 200 MG Vancomycin HCl 250 ml @ 200 mls/hr Q12H IV 10/08/24 14:00 UNV Vancomycin HCl 200 ml @ 200 mls/hr Q12H IV 10/08/24 11:00 10/08/24 10:56 200 MLS/HR Furosemide 40 mg BID IV 10/08/24 22:00 Laboratory Results Laboratory Tests 10/08/24 05:25 Chemistry Test 10/08/24 05:25 Calcium Level 9.5 mg/dL (8.7-10.4) Magnesium Level 2.2 mg/dL (1.6-2.6) Urinalysis Test 10/05/24 18:45 10/06/24 17:49 Urine Color Yellow (Yellow) Urine Clarity Clear (Clear) Urine pH 6.0 (5.0-9.0) Urine Specific [place] 1.031 (1.001-1.035) Urine Protein 2+ (Negative) H Urine Ketones Negative (Negative) Urine Blood Negative /uL (Negative) Urine Nitrite Negative (Negative) Urine Bilirubin Negative (Negative) Urine Urobilinogen 3 mg/dL (Negative) H Urine Leukocyte Esterase Negative /uL (Negative) Urine RBC 2 /hpf (0 - 3) Urine Microscopic WBC 8 /HPF (0-3) H Urine Squamous Epithelial Cells Few /hpf (<5) Urine Bacteria Few /hpf (None Seen) H Urine Hyaline Casts Few /lpf (0 - 2) Urine Mucus Few (None Seen) Urine Glucose Trace mg/dL (Normal) Urine Creatinine 97.15 mg/dL (30.0-125.0) Urine Sodium < 10 mmol/L (40-220) L Urine Total Protein 84.0 mg/dL (1-14) H Microbiology Microbiology Date/Time Source Procedure Growth Status 10/07/24 14:06 Pleural Fluid Gram Stain - Final Resulted 10/07/24 14:06 Pleural Fluid Body Fluid Culture - Preliminary Resulted 10/06/24 12:31 Nose MRSA Screen - Final Complete 10/05/24 19:19 Blood Blood Culture - Preliminary NO GROWTH AFTER 48 HOURS OF INCUBATION. Resulted Assessment/Plan Assessment/Plan 64-year-old male with a no significant past medical history presented to the hospital with the increasing shortness a breath and leg swelling found to have 1. AFib with RVR 2. Left-sided pleural effusion status post thoracentesis 3. Hyperkalemia, improved 4. Acute kidney injury suspected secondary to vasomotor nephropathy 5. Transaminitis 6. History of alcoholism 6. Morbid obesity classI -we will start Eliquis, , IV diuretics, follow up Nephrology and Cardiology recommendation. Plan discussed with: Patient, Other Date of Service: Oct 08, 2024 Billing Provider: SAIMA SAUNDERS MD Common Visit Codes: [id number] INP/OBS CARE(MOD) SAIMA SAUNDERS MD Oct 08, 2024 17:09
[2024-10-08] MEDS: FUROSEMIDE 40 MG/4 ML VIAL IV SCH (21:36)
[2024-10-09] VITALS (28 sets, daily range): BP systolic 89–112; BP diastolic 57–78; PULSE 91–115; RESP 10–30; TEMP 97.4–98.1; O2SAT 91–100
--- NOTE | 2024-10-09 00:39 | DVHPN2 ---
Progress Note - Dictate Date Seen: Oct 08, 2024 Medical Necessity Reason Pt with a Central, PICC or Fol: Yes The following are medically ne: Dean Catheter Reason for dean catheter: Strict I&O Subjective Patient was seen and evaluated in follow up in the ICU. Patient is on 5 L via Oxymizer. Patient is complaining of SOB and palpitations. 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 MRSA is negative. vital signs Vital Sign Date Time Temp Pulse Resp B/P (MAP) Pulse Ox O2 Delivery O2 Flow Rate FiO2 10/08/24 22:00 14 96 Oxymizer 5 N/A 10/08/24 21:36 94/77 10/08/24 20:00 81 10/08/24 20:00 97.6 97.6 Total Intake and Output 10/08/24 10/08/24 10/09/24 15:00 23:00 07:00 Intake Total 300 ml 240 ml Output Total 1600 ml Balance 300 ml -1360 ml medications Current Medications Medications Dose Ordered Sig/Nadia Route Start Time Stop Time Status Last Admin Dose Admin Digoxin 0.125 mg DAILY PO 10/06/24 10:00 10/08/24 08:42 0.125 MG Vancomycin HCl 0 ml @ 0 mls/hr UD IV 10/05/24 20:45 Levofloxacin/ Dextrose 100 ml @ 100 mls/hr DAILY IV 10/06/24 10:00 10/08/24 08:42 100 MLS/HR Aspirin 81 mg DAILY PO 10/06/24 10:00 10/08/24 08:44 81 MG Acetaminophen/ Hydrocodone Bitart 1 tab Q4HP PRN PO 10/05/24 20:45 10/07/24 14:18 1 TAB Ondansetron HCl 4 mg Q4HP PRN IV 10/05/24 20:45 Docusate Sodium 100 mg BIDPRN PRN PO 10/05/24 20:45 10/07/24 14:18 100 MG Nitroglycerin 0.4 mg Q5MINP PRN SL 10/05/24 22:30 Morphine Sulfate 2 mg Q30M PRN IV 10/05/24 22:30 Enoxaparin Sodium 120 mg Q12HR SC 10/06/24 11:56 10/08/24 21:39 120 MG Metoprolol Succinate 25 mg DAILY PO 10/07/24 10:00 10/08/24 08:45 25 MG Amiodarone HCl 200 mg Q12HR PO 10/07/24 15:00 10/08/24 21:39 200 MG Vancomycin HCl 250 ml @ 200 mls/hr Q12H IV 10/08/24 14:00 UNV Vancomycin HCl 200 ml @ 200 mls/hr Q12H IV 10/08/24 11:00 10/08/24 22:30 200 MLS/HR Furosemide 40 mg BID IV 10/08/24 22:00 10/08/24 21:36 40 MG objective GENERAL: Alert and oriented x 3. No acute distress. Morbidly obese. EYES: PERRL, EOMI. Anicteric. HENT: Moist mucous membranes. LUNGS: Diminished breath sounds. CARDIOVASCULAR: Irregular rate and rhythm. ABDOMEN: Soft, nontender and nondistended. EXTREMITIES: +3 pitting edema. NEUROLOGIC: No focal neurological deficits. SKIN: Warm, dry. laboratory and microbiology Laboratory Tests 10/08/24 05:25 Test 10/08/24 05:25 Range/Units Serum Glucose 113 H 74-106 mg/dL Problem List Atrial fibrillation with rapid ventricular response, newly diagnosed. Rule out structural heart disease. Left pleural effusion. Sepsis. Hyperkalemia. Acute kidney injury. Transaminitis. Prediabetes. History of alcoholism. Morbidly obese. Assessment/Plan Continued all current supportive medical care. Morphine and [place] for pain management. Amiodarone. Aspirin, Metoprolol. Digoxin. DVT prophylactics. Diuretics with Lasix. IV antibiotics as ordered. Additional plan as per the hospital course. Critical care time of 45 minutes provided to include time spent evaluation of patient at bedside, when appropriate patient/family education for diagnosis, treatment plan, review of pertinent medical information and discussion of care with specialty providers and PCP. Plan discussed with: Patient XIOMY JERONIMO MD Oct 09, 2024 00:39
[2024-10-09 05:00] LABS: Hematocrit 43.6 % (41.0-53.0); Hemoglobin 14.9 g/dL (13.5-17.5); Mean Corpuscular Hemoglobin 30.6 pg (28.0-32.0); Mean Corpuscular Volume 89.2 fL (80.0-100.0); Nucleated Red Blood Cells % 0.0 %
[2024-10-09 05:15] LABS: Chloride 100 mmol/L (98-107); Potassium 3.8 mmol/L (3.5-5.1); Sodium 137 mmol/L (136-145)
[2024-10-09 05:16] LABS: Anion Gap 10 (5-15); Calcium 8.9 mg/dL (8.7-10.4); Carbon Dioxide 27 mmol/L (20-31)
[2024-10-09 05:21] LABS: BUN/Creatinine Ratio 24.1 (10.0-20.0); Blood Urea Nitrogen 33 mg/dL (9-23); Glucose 146 mg/dL (74-106); Magnesium 2.1 mg/dL (1.6-2.6)
[2024-10-09] MEDS: FUROSEMIDE 40 MG/4 ML VIAL ONE (08:55)
--- NOTE | 2024-10-09 10:55 | DVHPN2 ---
Progress Note Date Seen: Oct 09, 2024 Medical Necessity Reason Pt with a Central, PICC or Fol: Yes The following are medically ne: Dean Catheter Reason for dean catheter: Strict I&O Subjective Patient reports: Feels better Objective vital signs Vital Sign Date Time Temp Pulse Resp B/P (MAP) Pulse Ox O2 Delivery O2 Flow Rate FiO2 10/09/24 10:00 19 94 Oxymizer 3 N/A 10/09/24 10:00 108 104/63 (77) 10/09/24 08:00 97.8 97.8 Total Intake and Output 10/08/24 10/08/24 10/09/24 15:00 23:00 07:00 Intake Total 300 ml 240 ml 550 ml Output Total 1600 ml 1250 ml Balance 300 ml -1360 ml -700 ml medications Current Medications Medications Dose Ordered Sig/Nadia Route Start Time Stop Time Status Last Admin Dose Admin Digoxin 0.125 mg DAILY PO 10/06/24 10:00 10/09/24 08:34 0.125 MG Vancomycin HCl 0 ml @ 0 mls/hr UD IV 10/05/24 20:45 Levofloxacin/ Dextrose 100 ml @ 100 mls/hr DAILY IV 10/06/24 10:00 10/09/24 08:31 100 MLS/HR Aspirin 81 mg DAILY PO 10/06/24 10:00 10/09/24 08:34 81 MG Acetaminophen/ Hydrocodone Bitart 1 tab Q4HP PRN PO 10/05/24 20:45 10/07/24 14:18 1 TAB Ondansetron HCl 4 mg Q4HP PRN IV 10/05/24 20:45 Docusate Sodium 100 mg BIDPRN PRN PO 10/05/24 20:45 10/07/24 14:18 100 MG Nitroglycerin 0.4 mg Q5MINP PRN SL 10/05/24 22:30 Morphine Sulfate 2 mg Q30M PRN IV 10/05/24 22:30 Enoxaparin Sodium 120 mg Q12HR SC 10/06/24 11:56 10/09/24 08:37 120 MG Metoprolol Succinate 25 mg DAILY PO 10/07/24 10:00 10/09/24 08:35 25 MG Amiodarone HCl 200 mg Q12HR PO 10/07/24 15:00 10/09/24 08:36 200 MG Vancomycin HCl 250 ml @ 200 mls/hr Q12H IV 10/08/24 14:00 UNV Vancomycin HCl 200 ml @ 200 mls/hr Q12H IV 10/08/24 11:00 10/09/24 10:34 200 MLS/HR Furosemide 40 mg BID IV 10/08/24 22:00 10/09/24 08:30 40 MG Examination: GENERAL:Abnormal, LUNGS:Abnormal, CVS:Abnormal laboratory and microbiology Laboratory Tests 10/09/24 04:39 Test 10/09/24 04:39 Range/Units Serum Glucose 146 H 74-106 mg/dL Microbiology Date/Time Source Procedure Growth Status 10/07/24 14:06 Pleural Fluid Gram Stain - Final Resulted 10/07/24 14:06 Pleural Fluid Body Fluid Culture - Preliminary Resulted 10/06/24 12:31 Nose MRSA Screen - Final Complete 10/05/24 19:19 Blood Blood Culture - Preliminary NO GROWTH AFTER 72 HOURS OF INCUBATION. Resulted Problem List/Assessment/Plan Problem List/Assessment/Plan 64 year old male admitted to hospital with sob and transferred to ICU for Afib RVR Acute kidney injury due to hypotension ckd cr 1.1 on admission severe systolic HF EF 15%, large pleural effusions pericardial effusions afib RVR HORACIO improving still in afib edema still 2-3+ but improved , continue lasix goal 2-3L neg balance increase rate control metoprolol, amio, cardiology eval, fluid restriction US kidney left kidney not visualized, R kidney 12cm rec repeat US in next few days patient has no previous medical followup currently as dean for strict I/O cardiology Plan discussed with: Patient My Orders My Orders Orders - HUONG SHEPPARD MD Procedure Category Date Status Time Furosemide Injection PHA 10/08/24 In Process (Lasix Injection) 22:00 Basic Metabolic Panel LAB 10/10/24 Verified 04:00 HUONG SHEPPARD MD Oct 09, 2024 10:55
[2024-10-09 12:07] LABS: Glucose, Body Fluid 147.0 mg/dL (.); LD, Body Fluid 389.0 IU/L (.)
--- NOTE | 2024-10-09 18:05 | DVHPN2 ---
Subjective Patient is currently off of amiodarone drip, on IV diuretics. Reviewed: Care Plan Changes from previous H/P or p: No Changes Eyes: No Pain, No Vision change, No Conjunctivae inflammation, No Eyelid inflammation, No Other, No Redness ENT: No Ear pain, No Ear discharge, No Nose pain, No Nose discharge, No Nose congestion, No Mouth pain, No Mouth swelling, No Throat pain, No Throat swelling, No Other Cardiovascular: No Chest Pain; Palpitations; No Orthopnea, No Paroxysmal Noc. Dyspnea, No Edema, No Lt Headedness, No Other Respiratory: No Cough, No Dry; Shortness of breath; No SOB with excertion, No Wheezing, No Hemoptysis, No Pleuritic Pain, No Sputum, No Other Gastrointestinal: No Nausea, No Vomiting, No Abdominal Pain, No Diarrhea, No Constipation, No Melena, No Hematochezia, No Other Genitourinary: No Dysuria, No Frequency, No Incontinence, No Hematuria, No Retention, No Other Musculoskeletal: No other, No neck pain, No shoulder pain, No arm pain, No back pain, No hand pain, No leg pain, No foot pain Skin: No Rash, No Lesions, No Jaundice, No Bruising, No Other Objective Vitals Vital Signs Date Time Temp Pulse Resp B/P (MAP) Pulse Ox O2 Delivery O2 Flow Rate FiO2 10/09/24 17:00 101 22 91/65 (74) 95 10/09/24 16:00 Nasal Cannula* 2 28 10/09/24 16:00 97.8 97.8 Intake/Output Intake and Output 10/09/24 07:00 Intake Total 1090 ml Output Total 2850 ml Balance -1760 ml Intake Oral 590 ml IV Total 500 ml Output Urine Total 2850 ml Stool Total 0 ml Exam HEENT pupils are reactive Neck is supple CV is S1-S2 irregularly irregular rate and rhythm Respiratory bilateral diminished breath sounds left more than right GI positive bowel sound Extremity 2+ pitting 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 Medications Current Medications Medications Dose Ordered Sig/Nadia Route Start Time Stop Time Status Last Admin Dose Admin Digoxin 0.125 mg DAILY PO 10/06/24 10:00 10/09/24 08:34 0.125 MG Vancomycin HCl 0 ml @ 0 mls/hr UD IV 10/05/24 20:45 Levofloxacin/ Dextrose 100 ml @ 100 mls/hr DAILY IV 10/06/24 10:00 10/09/24 08:31 100 MLS/HR Aspirin 81 mg DAILY PO 10/06/24 10:00 10/09/24 08:34 81 MG Acetaminophen/ Hydrocodone Bitart 1 tab Q4HP PRN PO 10/05/24 20:45 10/07/24 14:18 1 TAB Ondansetron HCl 4 mg Q4HP PRN IV 10/05/24 20:45 Docusate Sodium 100 mg BIDPRN PRN PO 10/05/24 20:45 10/07/24 14:18 100 MG Nitroglycerin 0.4 mg Q5MINP PRN SL 10/05/24 22:30 Morphine Sulfate 2 mg Q30M PRN IV 10/05/24 22:30 Enoxaparin Sodium 120 mg Q12HR SC 10/06/24 11:56 10/09/24 08:37 120 MG Metoprolol Succinate 25 mg DAILY PO 10/07/24 10:00 10/09/24 08:35 25 MG Amiodarone HCl 200 mg Q12HR PO 10/07/24 15:00 10/09/24 08:36 200 MG Vancomycin HCl 250 ml @ 200 mls/hr Q12H IV 10/08/24 14:00 UNV Vancomycin HCl 200 ml @ 200 mls/hr Q12H IV 10/08/24 11:00 10/09/24 10:34 200 MLS/HR Furosemide 40 mg BID IV 10/08/24 22:00 10/09/24 08:30 40 MG Laboratory Results Laboratory Tests 10/09/24 04:39 Chemistry Test 10/09/24 04:39 Calcium Level 8.9 mg/dL (8.7-10.4) Magnesium Level 2.1 mg/dL (1.6-2.6) Urinalysis Test 10/05/24 18:45 10/06/24 17:49 Urine Color Yellow (Yellow) Urine Clarity Clear (Clear) Urine pH 6.0 (5.0-9.0) Urine Specific [place] 1.031 (1.001-1.035) Urine Protein 2+ (Negative) H Urine Ketones Negative (Negative) Urine Blood Negative /uL (Negative) Urine Nitrite Negative (Negative) Urine Bilirubin Negative (Negative) Urine Urobilinogen 3 mg/dL (Negative) H Urine Leukocyte Esterase Negative /uL (Negative) Urine RBC 2 /hpf (0 - 3) Urine Microscopic WBC 8 /HPF (0-3) H Urine Squamous Epithelial Cells Few /hpf (<5) Urine Bacteria Few /hpf (None Seen) H Urine Hyaline Casts Few /lpf (0 - 2) Urine Mucus Few (None Seen) Urine Glucose Trace mg/dL (Normal) Urine Creatinine 97.15 mg/dL (30.0-125.0) Urine Sodium < 10 mmol/L (40-220) L Urine Total Protein 84.0 mg/dL (1-14) H Microbiology Microbiology Date/Time Source Procedure Growth Status 10/07/24 14:06 Pleural Fluid Gram Stain - Final Resulted 10/07/24 14:06 Pleural Fluid Body Fluid Culture - Preliminary Resulted 10/06/24 12:31 Nose MRSA Screen - Final Complete 10/05/24 19:19 Blood Blood Culture - Preliminary NO GROWTH AFTER 72 HOURS OF INCUBATION. Resulted Assessment/Plan Assessment/Plan 64-year-old male with a no significant past medical history presented to the hospital with the increasing shortness a breath and leg swelling found to have 1. AFib with RVR , currently controlled 2. Left-sided pleural effusion status post thoracentesis 3. Hyperkalemia, improved 4. Acute kidney injury suspected secondary to vasomotor nephropathy 5. Transaminitis 6. History of alcoholism 6. Morbid obesity classI -for primary prevention of stroke, IV diuretics, follow up Nephrology and Cardiology recommendation. Plan discussed with: Patient, Daughter My Orders Orders - SAIMA SAUNDERS MD Procedure Category Date Status Time Transfer Orders XFER 10/09/24 Transmitted 17:48 Date of Service: Oct 09, 2024 Billing Provider: SAIMA SAUNDERS MD Common Visit Codes: [id number] INP/OBS CARE(MOD) SAIMA SAUNDERS MD Oct 09, 2024 18:05
--- NOTE | 2024-10-09 22:21 | DVHPN2 ---
Progress Note - Dictate Date Seen: Oct 09, 2024 Medical Necessity Reason Pt with a Central, PICC or Fol: Yes The following are medically ne: Dean Catheter Reason for dean catheter: Strict I&O Subjective Patient was seen and evaluated in follow up in the ICU. Patient is now on 2 LPM NC. CBC is unremarkable. BUN 33, Acds Block 1 Operator 1.37. Pending downgrade to tele bed. vital signs Vital Sign Date Time Temp Pulse Resp B/P (MAP) Pulse Ox O2 Delivery O2 Flow Rate FiO2 10/09/24 20:00 98.1 110 12 103/68 (80) 95 98.1 10/09/24 20:00 Nasal Cannula* 2 28 Total Intake and Output 10/08/24 10/08/24 10/09/24 15:00 23:00 07:00 Intake Total 300 ml 240 ml 550 ml Output Total 1600 ml 1250 ml Balance 300 ml -1360 ml -700 ml medications Current Medications Medications Dose Ordered Sig/Nadia Route Start Time Stop Time Status Last Admin Dose Admin Digoxin 0.125 mg DAILY PO 10/06/24 10:00 10/09/24 08:34 0.125 MG Vancomycin HCl 0 ml @ 0 mls/hr UD IV 10/05/24 20:45 Levofloxacin/ Dextrose 100 ml @ 100 mls/hr DAILY IV 10/06/24 10:00 10/09/24 08:31 100 MLS/HR Aspirin 81 mg DAILY PO 10/06/24 10:00 10/09/24 08:34 81 MG Acetaminophen/ Hydrocodone Bitart 1 tab Q4HP PRN PO 10/05/24 20:45 10/07/24 14:18 1 TAB Ondansetron HCl 4 mg Q4HP PRN IV 10/05/24 20:45 Docusate Sodium 100 mg BIDPRN PRN PO 10/05/24 20:45 10/07/24 14:18 100 MG Nitroglycerin 0.4 mg Q5MINP PRN SL 10/05/24 22:30 Morphine Sulfate 2 mg Q30M PRN IV 10/05/24 22:30 Enoxaparin Sodium 120 mg Q12HR SC 10/06/24 11:56 10/09/24 08:37 120 MG Metoprolol Succinate 25 mg DAILY PO 10/07/24 10:00 10/09/24 08:35 25 MG Amiodarone HCl 200 mg Q12HR PO 10/07/24 15:00 10/09/24 08:36 200 MG Vancomycin HCl 250 ml @ 200 mls/hr Q12H IV 10/08/24 14:00 UNV Vancomycin HCl 200 ml @ 200 mls/hr Q12H IV 10/08/24 11:00 10/09/24 10:34 200 MLS/HR Furosemide 40 mg BID IV 10/08/24 22:00 10/09/24 08:30 40 MG objective GENERAL: Alert and oriented x 3. No acute distress. Morbidly obese. EYES: PERRL, EOMI. Anicteric. HENT: Moist mucous membranes. LUNGS: Diminished breath sounds. CARDIOVASCULAR: Irregular rate and rhythm. ABDOMEN: Soft, nontender and nondistended. EXTREMITIES: +3 pitting edema. NEUROLOGIC: No focal neurological deficits. SKIN: Warm, dry. laboratory and microbiology Laboratory Tests 10/09/24 04:39 Test 10/09/24 04:39 Range/Units Serum Glucose 146 H 74-106 mg/dL Problem List Atrial fibrillation with rapid ventricular response, newly diagnosed. Rule out structural heart disease. Left pleural effusion. Sepsis. Hyperkalemia. Acute kidney injury. Transaminitis. Prediabetes. History of alcoholism. Morbidly obese. Assessment/Plan Continued all current supportive medical care. Morphine and [place] for pain management. Amiodarone. Aspirin, Metoprolol. Digoxin. DVT prophylactics. Diuretics with Lasix. IV antibiotics as ordered. Additional plan as per the hospital course. Critical care time of 45 minutes provided to include time spent evaluation of patient at bedside, when appropriate patient/family education for diagnosis, treatment plan, review of pertinent medical information and discussion of care with specialty providers and PCP. Plan discussed with: Patient XIOMY JERONIMO MD Oct 09, 2024 22:21
[2024-10-10] VITALS (18 sets, daily range): BP systolic 91–128; BP diastolic 55–76; PULSE 61–114; RESP 10–24; TEMP 96.8–98.9; O2SAT 94–98
[2024-10-10 04:56] LABS: Chloride 102 mmol/L (98-107); Potassium 3.8 mmol/L (3.5-5.1); Sodium 137 mmol/L (136-145)
[2024-10-10 04:57] LABS: Anion Gap 10 (5-15); Calcium 8.9 mg/dL (8.7-10.4); Carbon Dioxide 25 mmol/L (20-31)
[2024-10-10 05:02] LABS: BUN/Creatinine Ratio 20.6 (10.0-20.0)
[2024-10-10 05:03] LABS: Blood Urea Nitrogen 26 mg/dL (9-23); Glucose 133 mg/dL (74-106)
[2024-10-10] MEDS: VANCOMYCIN 1.25GM/250ML 250 ML IV SCH (12:02)
--- NOTE | 2024-10-10 15:52 | DVHPN2 ---
Progress Note Date Seen: Oct 10, 2024 Medical Necessity Reason Pt with a Central, PICC or Fol: Yes The following are medically ne: Dean Catheter Reason for dean catheter: Strict I&O Subjective Patient reports: Feels better Objective vital signs Vital Sign Date Time Temp Pulse Resp B/P (MAP) Pulse Ox O2 Delivery O2 Flow Rate FiO2 10/10/24 13:00 97.9 69 18 128/67 (87) 97 97.9 10/10/24 08:00 Oxymizer 2 N/A Total Intake and Output 10/09/24 10/09/24 10/10/24 15:00 23:00 07:00 Intake Total 300 ml 340 ml 200 ml Output Total 1125 ml Balance 300 ml -785 ml 200 ml medications Current Medications Medications Dose Ordered Sig/Nadia Route Start Time Stop Time Status Last Admin Dose Admin Digoxin 0.125 mg DAILY PO 10/06/24 10:00 10/10/24 10:39 0.125 MG Vancomycin HCl 0 ml @ 0 mls/hr UD IV 10/05/24 20:45 Levofloxacin/ Dextrose 100 ml @ 100 mls/hr DAILY IV 10/06/24 10:00 10/10/24 10:35 100 MLS/HR Aspirin 81 mg DAILY PO 10/06/24 10:00 10/10/24 10:37 81 MG Acetaminophen/ Hydrocodone Bitart 1 tab Q4HP PRN PO 10/05/24 20:45 10/07/24 14:18 1 TAB Ondansetron HCl 4 mg Q4HP PRN IV 10/05/24 20:45 Docusate Sodium 100 mg BIDPRN PRN PO 10/05/24 20:45 10/07/24 14:18 100 MG Nitroglycerin 0.4 mg Q5MINP PRN SL 10/05/24 22:30 Morphine Sulfate 2 mg Q30M PRN IV 10/05/24 22:30 Enoxaparin Sodium 120 mg Q12HR SC 10/06/24 11:56 10/10/24 10:36 120 MG Metoprolol Succinate 25 mg DAILY PO 10/07/24 10:00 10/09/24 08:35 25 MG Amiodarone HCl 200 mg Q12HR PO 10/07/24 15:00 10/10/24 10:36 200 MG Vancomycin HCl 250 ml @ 200 mls/hr Q12H IV 10/08/24 14:00 UNV Furosemide 40 mg BID IV 10/08/24 22:00 10/10/24 10:36 40 MG Vancomycin HCl 250 ml @ 200 mls/hr Q12H IV 10/10/24 11:00 10/10/24 12:02 200 MLS/HR Examination: GENERAL:Abnormal, CVS:Abnormal, SKIN:Abnormal laboratory and microbiology Laboratory Tests 10/10/24 03:48 10/09/24 04:39 Test 10/10/24 03:48 Range/Units Serum Glucose 133 H 74-106 mg/dL Microbiology Date/Time Source Procedure Growth Status 10/07/24 14:06 Pleural Fluid Gram Stain - Final Resulted 10/07/24 14:06 Pleural Fluid Body Fluid Culture - Preliminary Resulted 10/06/24 12:31 Nose MRSA Screen - Final Complete 10/05/24 19:19 Blood Blood Culture - Preliminary NO GROWTH AFTER 72 HOURS OF INCUBATION. Resulted Problem List/Assessment/Plan Problem List/Assessment/Plan 64 year old male admitted to hospital with sob and transferred to ICU for Afib RVR Acute kidney injury due to hypotension ckd cr 1.1 on admission severe systolic HF EF 15%, large pleural effusions pericardial effusions afib RVR HORACIO improving edema still 2-3+ but improved , continue lasix goal 2-3L neg balance, extra lasix and metolazone dose today increase rate control metoprolol, amio, cardiology eval, fluid restriction US kidney left kidney not visualized, R kidney 12cm rec repeat US currently as dean for strict I/O cardiology Plan discussed with: Patient My Orders My Orders Orders - HUONG SHEPPARD MD Procedure Category Date Status Time Basic Metabolic Panel LAB 10/11/24 Verified 04:00 Furosemide Injection PHA 10/10/24 Verified (Lasix Injection) 16:00 Metolazone (Zaroxolyn) PHA 10/10/24 Verified 16:00 Dietary Evaluation Review Comments: 1. Refer to CDE on DC for weight management 2. Continue current plan of care Expected Outcomes/Goals: To meet >75% estimated needs Fu 3-5 days HUONG SHEPPARD MD Oct 10, 2024 15:52
--- NOTE | 2024-10-10 16:09 | DVHPN2 ---
Subjective Patient remains on IV diuretics, generalized anasarca is improving. Reviewed: Care Plan Changes from previous H/P or p: No Changes Eyes: No Pain, No Vision change, No Conjunctivae inflammation, No Eyelid inflammation, No Other, No Redness ENT: No Ear pain, No Ear discharge, No Nose pain, No Nose discharge, No Nose congestion, No Mouth pain, No Mouth swelling, No Throat pain, No Throat swelling, No Other Cardiovascular: No Chest Pain; Palpitations; No Orthopnea, No Paroxysmal Noc. Dyspnea, No Edema, No Lt Headedness, No Other Respiratory: No Cough, No Dry; Shortness of breath; No SOB with excertion, No Wheezing, No Hemoptysis, No Pleuritic Pain, No Sputum, No Other Gastrointestinal: No Nausea, No Vomiting, No Abdominal Pain, No Diarrhea, No Constipation, No Melena, No Hematochezia, No Other Genitourinary: No Dysuria, No Frequency, No Incontinence, No Hematuria, No Retention, No Other Musculoskeletal: No other, No neck pain, No shoulder pain, No arm pain, No back pain, No hand pain, No leg pain, No foot pain Skin: No Rash, No Lesions, No Jaundice, No Bruising, No Other Objective Vitals Vital Signs Date Time Temp Pulse Resp B/P (MAP) Pulse Ox O2 Delivery O2 Flow Rate FiO2 10/10/24 13:00 97.9 69 18 128/67 (87) 97 97.9 10/10/24 08:00 Oxymizer 2 N/A Intake/Output Intake and Output 10/10/24 07:00 Intake Total 840 ml Output Total 1125 ml Balance -285 ml Intake Oral 340 ml IV Total 500 ml Output Urine Total 1125 ml Stool Total 0 ml Exam HEENT pupils are reactive Neck is supple CV is S1-S2 irregularly irregular rate and rhythm Respiratory bilateral diminished breath sounds left more than right GI positive bowel sound Extremity 2+ pitting edema 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 Medications Current Medications Medications Dose Ordered Sig/Nadia Route Start Time Stop Time Status Last Admin Dose Admin Digoxin 0.125 mg DAILY PO 10/06/24 10:00 10/10/24 10:39 0.125 MG Vancomycin HCl 0 ml @ 0 mls/hr UD IV 10/05/24 20:45 Levofloxacin/ Dextrose 100 ml @ 100 mls/hr DAILY IV 10/06/24 10:00 10/10/24 10:35 100 MLS/HR Aspirin 81 mg DAILY PO 10/06/24 10:00 10/10/24 10:37 81 MG Acetaminophen/ Hydrocodone Bitart 1 tab Q4HP PRN PO 10/05/24 20:45 10/07/24 14:18 1 TAB Ondansetron HCl 4 mg Q4HP PRN IV 10/05/24 20:45 Docusate Sodium 100 mg BIDPRN PRN PO 10/05/24 20:45 10/07/24 14:18 100 MG Nitroglycerin 0.4 mg Q5MINP PRN SL 10/05/24 22:30 Morphine Sulfate 2 mg Q30M PRN IV 10/05/24 22:30 Enoxaparin Sodium 120 mg Q12HR SC 10/06/24 11:56 10/10/24 10:36 120 MG Metoprolol Succinate 25 mg DAILY PO 10/07/24 10:00 10/09/24 08:35 25 MG Amiodarone HCl 200 mg Q12HR PO 10/07/24 15:00 10/10/24 10:36 200 MG Vancomycin HCl 250 ml @ 200 mls/hr Q12H IV 10/08/24 14:00 UNV Furosemide 40 mg BID IV 10/08/24 22:00 10/10/24 10:36 40 MG Vancomycin HCl 250 ml @ 200 mls/hr Q12H IV 10/10/24 11:00 10/10/24 12:02 200 MLS/HR Laboratory Results Laboratory Tests 10/09/24 04:39 10/10/24 03:48 Chemistry Test 10/10/24 03:48 Calcium Level 8.9 mg/dL (8.7-10.4) Urinalysis Test 10/05/24 18:45 10/06/24 17:49 Urine Color Yellow (Yellow) Urine Clarity Clear (Clear) Urine pH 6.0 (5.0-9.0) Urine Specific [place] 1.031 (1.001-1.035) Urine Protein 2+ (Negative) H Urine Ketones Negative (Negative) Urine Blood Negative /uL (Negative) Urine Nitrite Negative (Negative) Urine Bilirubin Negative (Negative) Urine Urobilinogen 3 mg/dL (Negative) H Urine Leukocyte Esterase Negative /uL (Negative) Urine RBC 2 /hpf (0 - 3) Urine Microscopic WBC 8 /HPF (0-3) H Urine Squamous Epithelial Cells Few /hpf (<5) Urine Bacteria Few /hpf (None Seen) H Urine Hyaline Casts Few /lpf (0 - 2) Urine Mucus Few (None Seen) Urine Glucose Trace mg/dL (Normal) Urine Creatinine 97.15 mg/dL (30.0-125.0) Urine Sodium < 10 mmol/L (40-220) L Urine Total Protein 84.0 mg/dL (1-14) H Microbiology Microbiology Date/Time Source Procedure Growth Status 10/07/24 14:06 Pleural Fluid Gram Stain - Final Resulted 10/07/24 14:06 Pleural Fluid Body Fluid Culture - Preliminary Resulted 10/06/24 12:31 Nose MRSA Screen - Final Complete 10/05/24 19:19 Blood Blood Culture - Preliminary NO GROWTH AFTER 72 HOURS OF INCUBATION. Resulted Assessment/Plan Assessment/Plan 64-year-old male with a no significant past medical history presented to the hospital with the increasing shortness a breath and leg swelling found to have 1. AFib with RVR , currently controlled 2. Left-sided pleural effusion status post thoracentesis 3. Hyperkalemia, improved 4. Acute kidney injury suspected secondary to vasomotor nephropathy 5. Transaminitis 6. History of alcoholism 6. Morbid obesity classI -continue IV diuretics, 2D echo cardiology consultation Nephrology consultation appreciated Plan discussed with: Patient, Spouse My Orders Orders - SAIMA SAUNDERS MD Procedure Category Date Status Time Transfer Orders XFER 10/09/24 Transmitted 17:48 Date of Service: Oct 10, 2024 Billing Provider: SAIMA SAUNDERS MD Common Visit Codes: [id number] INP/OBS CARE(MOD) SAIMA SAUNDERS MD Oct 10, 2024 16:09
--- NOTE | 2024-10-10 16:13 | DVHPN2 ---
Subjective Patient remains on IV diuretics, generalized anasarca is improving. Reviewed: Care Plan Changes from previous H/P or p: No Changes Eyes: No Pain, No Vision change, No Conjunctivae inflammation, No Eyelid inflammation, No Other, No Redness ENT: No Ear pain, No Ear discharge, No Nose pain, No Nose discharge, No Nose congestion, No Mouth pain, No Mouth swelling, No Throat pain, No Throat swelling, No Other Cardiovascular: No Chest Pain; Palpitations; No Orthopnea, No Paroxysmal Noc. Dyspnea, No Edema, No Lt Headedness, No Other Respiratory: No Cough, No Dry; Shortness of breath; No SOB with excertion, No Wheezing, No Hemoptysis, No Pleuritic Pain, No Sputum, No Other Gastrointestinal: No Nausea, No Vomiting, No Abdominal Pain, No Diarrhea, No Constipation, No Melena, No Hematochezia, No Other Genitourinary: No Dysuria, No Frequency, No Incontinence, No Hematuria, No Retention, No Other Musculoskeletal: No other, No neck pain, No shoulder pain, No arm pain, No back pain, No hand pain, No leg pain, No foot pain Skin: No Rash, No Lesions, No Jaundice, No Bruising, No Other Objective Vitals Vital Signs Date Time Temp Pulse Resp B/P (MAP) Pulse Ox O2 Delivery O2 Flow Rate FiO2 10/10/24 13:00 97.9 69 18 128/67 (87) 97 97.9 10/10/24 08:00 Oxymizer 2 N/A Intake/Output Intake and Output 10/10/24 07:00 Intake Total 840 ml Output Total 1125 ml Balance -285 ml Intake Oral 340 ml IV Total 500 ml Output Urine Total 1125 ml Stool Total 0 ml Exam HEENT pupils are reactive Neck is supple CV is S1-S2 irregularly irregular rate and rhythm Respiratory bilateral diminished breath sounds left more than right GI positive bowel sound Extremity 2+ pitting edema [employer]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 Medications Current Medications Medications Dose Ordered Sig/Nadia Route Start Time Stop Time Status Last Admin Dose Admin Digoxin 0.125 mg DAILY PO 10/06/24 10:00 10/10/24 10:39 0.125 MG Vancomycin HCl 0 ml @ 0 mls/hr UD IV 10/05/24 20:45 Levofloxacin/ Dextrose 100 ml @ 100 mls/hr DAILY IV 10/06/24 10:00 10/10/24 10:35 100 MLS/HR Aspirin 81 mg DAILY PO 10/06/24 10:00 10/10/24 10:37 81 MG Acetaminophen/ Hydrocodone Bitart 1 tab Q4HP PRN PO 10/05/24 20:45 10/07/24 14:18 1 TAB Ondansetron HCl 4 mg Q4HP PRN IV 10/05/24 20:45 Docusate Sodium 100 mg BIDPRN PRN PO 10/05/24 20:45 10/07/24 14:18 100 MG Nitroglycerin 0.4 mg Q5MINP PRN SL 10/05/24 22:30 Morphine Sulfate 2 mg Q30M PRN IV 10/05/24 22:30 Enoxaparin Sodium 120 mg Q12HR SC 10/06/24 11:56 10/10/24 10:36 120 MG Metoprolol Succinate 25 mg DAILY PO 10/07/24 10:00 10/09/24 08:35 25 MG Amiodarone HCl 200 mg Q12HR PO 10/07/24 15:00 10/10/24 10:36 200 MG Vancomycin HCl 250 ml @ 200 mls/hr Q12H IV 10/08/24 14:00 UNV Furosemide 40 mg BID IV 10/08/24 22:00 10/10/24 10:36 40 MG Vancomycin HCl 250 ml @ 200 mls/hr Q12H IV 10/10/24 11:00 10/10/24 12:02 200 MLS/HR Laboratory Results Laboratory Tests 10/09/24 04:39 10/10/24 03:48 Chemistry Test 10/10/24 03:48 Calcium Level 8.9 mg/dL (8.7-10.4) Urinalysis Test 10/05/24 18:45 10/06/24 17:49 Urine Color Yellow (Yellow) Urine Clarity Clear (Clear) Urine pH 6.0 (5.0-9.0) Urine Specific [place] 1.031 (1.001-1.035) Urine Protein 2+ (Negative) H Urine Ketones Negative (Negative) Urine Blood Negative /uL (Negative) Urine Nitrite Negative (Negative) Urine Bilirubin Negative (Negative) Urine Urobilinogen 3 mg/dL (Negative) H Urine Leukocyte Esterase Negative /uL (Negative) Urine RBC 2 /hpf (0 - 3) Urine Microscopic WBC 8 /HPF (0-3) H Urine Squamous Epithelial Cells Few /hpf (<5) Urine Bacteria Few /hpf (None Seen) H Urine Hyaline Casts Few /lpf (0 - 2) Urine Mucus Few (None Seen) Urine Glucose Trace mg/dL (Normal) Urine Creatinine 97.15 mg/dL (30.0-125.0) Urine Sodium < 10 mmol/L (40-220) L Urine Total Protein 84.0 mg/dL (1-14) H Microbiology Microbiology Date/Time Source Procedure Growth Status 10/07/24 14:06 Pleural Fluid Gram Stain - Final Resulted 10/07/24 14:06 Pleural Fluid Body Fluid Culture - Preliminary Resulted 10/06/24 12:31 Nose MRSA Screen - Final Complete 10/05/24 19:19 Blood Blood Culture - Preliminary NO GROWTH AFTER 72 HOURS OF INCUBATION. Resulted Assessment/Plan Assessment/Plan 64-year-old male with a no significant past medical history presented to the hospital with the increasing shortness a breath and leg swelling found to have 1. AFib with RVR , currently controlled 2. Left-sided pleural effusion status post thoracentesis 3. Hyperkalemia, improved 4. Acute kidney injury suspected secondary to vasomotor nephropathy 5. Transaminitis 6. History of alcoholism 6. Morbid obesity classI -continue IV diuretics, discontinue Lovenox start Eliquis for primary prevention of stroke Nephrology consultation appreciated Plan discussed with: Patient, Spouse My Orders Orders - SAIMA SAUNDERS MD Procedure Category Date Status Time Transfer Orders XFER 10/09/24 Transmitted 17:48 Date of Service: Oct 10, 2024 Billing Provider: SAIMA SAUNDERS MD Common Visit Codes: [id number] INP/OBS CARE(MOD) SAIMA SAUNDERS MD Oct 10, 2024 16:13
--- NOTE | 2024-10-10 16:13 | DVHPN2 ---
Progress Note - Dictate Date Seen: Oct 10, 2024 Medical Necessity Reason Pt with a Central, PICC or Fol: Yes The following are medically ne: Dean Catheter Reason for dean catheter: Strict I&O Subjective Patient was seen and evaluated in follow up. Patient was downgraded to a telemetry bed. Patient is on 2 L via Oxymizer. Patient reports feeling better today. BUN 26. Telemetry reviewed. vital signs Vital Sign Date Time Temp Pulse Resp B/P (MAP) Pulse Ox O2 Delivery O2 Flow Rate FiO2 10/10/24 10:39 106 10/10/24 10:36 99/76 10/10/24 09:00 98.9 17 98 98.9 10/10/24 08:00 Oxymizer 2 N/A Total Intake and Output 10/09/24 10/09/24 10/10/24 15:00 23:00 07:00 Intake Total 300 ml 340 ml 200 ml Output Total 1125 ml Balance 300 ml -785 ml 200 ml medications Current Medications Medications Dose Ordered Sig/Nadia Route Start Time Stop Time Status Last Admin Dose Admin Digoxin 0.125 mg DAILY PO 10/06/24 10:00 10/10/24 10:39 0.125 MG Vancomycin HCl 0 ml @ 0 mls/hr UD IV 10/05/24 20:45 Levofloxacin/ Dextrose 100 ml @ 100 mls/hr DAILY IV 10/06/24 10:00 10/10/24 10:35 100 MLS/HR Aspirin 81 mg DAILY PO 10/06/24 10:00 10/10/24 10:37 81 MG Acetaminophen/ Hydrocodone Bitart 1 tab Q4HP PRN PO 10/05/24 20:45 10/07/24 14:18 1 TAB Ondansetron HCl 4 mg Q4HP PRN IV 10/05/24 20:45 Docusate Sodium 100 mg BIDPRN PRN PO 10/05/24 20:45 10/07/24 14:18 100 MG Nitroglycerin 0.4 mg Q5MINP PRN SL 10/05/24 22:30 Morphine Sulfate 2 mg Q30M PRN IV 10/05/24 22:30 Enoxaparin Sodium 120 mg Q12HR SC 10/06/24 11:56 10/10/24 10:36 120 MG Metoprolol Succinate 25 mg DAILY PO 10/07/24 10:00 10/09/24 08:35 25 MG Amiodarone HCl 200 mg Q12HR PO 10/07/24 15:00 10/10/24 10:36 200 MG Vancomycin HCl 250 ml @ 200 mls/hr Q12H IV 10/08/24 14:00 UNV Furosemide 40 mg BID IV 10/08/24 22:00 10/10/24 10:36 40 MG Vancomycin HCl 250 ml @ 200 mls/hr Q12H IV 10/10/24 11:00 10/10/24 12:02 200 MLS/HR objective GENERAL: Alert and oriented x 3. No acute distress. Morbidly obese. EYES: PERRL, EOMI. Anicteric. HENT: Moist mucous membranes. LUNGS: Diminished breath sounds. CARDIOVASCULAR: Irregular rate and rhythm. ABDOMEN: Soft, nontender and nondistended. EXTREMITIES: +3 pitting edema. NEUROLOGIC: No focal neurological deficits. SKIN: Warm, dry. laboratory and microbiology Laboratory Tests 10/10/24 03:48 10/09/24 04:39 Test 10/10/24 03:48 Range/Units Serum Glucose 133 H 74-106 mg/dL Problem List Atrial fibrillation with rapid ventricular response, newly diagnosed. Rule out structural heart disease. Left pleural effusion. Sepsis. Hyperkalemia. Acute kidney injury. Transaminitis. Prediabetes. History of alcoholism. Morbidly obese. Assessment/Plan Continued all current supportive medical care. Morphine and [place] for pain management. Amiodarone. Aspirin, Metoprolol. Digoxin. DVT prophylactics. Diuretics with Lasix. IV antibiotics as ordered. Additional plan as per the hospital course. Plan discussed with: Patient XIOMY JERONIMO MD Oct 10, 2024 13:50
--- NOTE | 2024-10-10 17:01 | DVH ---
RENAL ULTRASOUND History: left kidney Comparison: US KIDNEY on DOS: 10/06/24 Technique: Multiple real-time sonographic images of the left kidney were obtained in conjunction with Doppler imaging. Findings: The left kidney measures 0.3 cm and demonstrates no evidence of hydronephrosis, perinephric fluid col lection, or shadowing stone. There is a left renal mid to lower pole cyst measuring 3.6 cm. The left kidney appears to be in the left lower quadrant /pelvis. Large left pleural effusion. Impression: 1. Left kidney appears to be in the pelvis/left lower quadrant. No hydronephrosis. 2. Large left pleural effusion.
[2024-10-10] MEDS: FUROSEMIDE 20 MG/2 ML VIAL IV ONE (17:07)
[2024-10-10] MEDS: APIXABAN 5 MG TAB PO SCH (17:07)
[2024-10-11] VITALS (8 sets, daily range): BP systolic 102–111; BP diastolic 49–81; PULSE 48–118; RESP 16–19; TEMP 96.3–97.6; O2SAT 96–99
[2024-10-11 07:00] LABS: Anion Gap 12 (5-15); Calcium 9.2 mg/dL (8.7-10.4); Carbon Dioxide 28 mmol/L (20-31); Chloride 99 mmol/L (98-107); Sodium 139 mmol/L (136-145)
[2024-10-11 07:03] LABS: Potassium 3.3 mmol/L (3.5-5.1)
[2024-10-11 07:06] LABS: BUN/Creatinine Ratio 23.7 (10.0-20.0)
[2024-10-11 07:09] LABS: Blood Urea Nitrogen 32 mg/dL (9-23); Glucose 130 mg/dL (74-106)
[2024-10-11] MEDS: POTASSIUM CHL 20 Meq TABLET PO ONE (09:21)
--- NOTE | 2024-10-11 14:40 | DVHPN2 ---
Progress Note Date Seen: Oct 11, 2024 Medical Necessity Reason Pt with a Central, PICC or Fol: Yes The following are medically ne: Dean Catheter Reason for dean catheter: Strict I&O Subjective Patient reports: Feels better Objective vital signs Vital Sign Date Time Temp Pulse Resp B/P (MAP) Pulse Ox O2 Delivery O2 Flow Rate FiO2 10/11/24 09:23 106/77 10/11/24 09:21 114 10/11/24 09:00 97.0 17 99 97.0 10/11/24 08:00 Nasal Cannula* 2 28 Total Intake and Output 10/10/24 10/10/24 10/11/24 15:00 23:00 07:00 Intake Total 250 ml 1120 ml 120 ml Output Total 1600 ml 850 ml Balance 250 ml -480 ml -730 ml medications Current Medications Medications Dose Ordered Sig/Nadia Route Start Time Stop Time Status Last Admin Dose Admin Digoxin 0.125 mg DAILY PO 10/06/24 10:00 10/11/24 09:21 0.125 MG Vancomycin HCl 0 ml @ 0 mls/hr UD IV 10/05/24 20:45 Levofloxacin/ Dextrose 100 ml @ 100 mls/hr DAILY IV 10/06/24 10:00 10/11/24 09:24 100 MLS/HR Aspirin 81 mg DAILY PO 10/06/24 10:00 10/11/24 09:22 81 MG Acetaminophen/ Hydrocodone Bitart 1 tab Q4HP PRN PO 10/05/24 20:45 10/11/24 13:31 1 TAB Ondansetron HCl 4 mg Q4HP PRN IV 10/05/24 20:45 Docusate Sodium 100 mg BIDPRN PRN PO 10/05/24 20:45 10/07/24 14:18 100 MG Nitroglycerin 0.4 mg Q5MINP PRN SL 10/05/24 22:30 Morphine Sulfate 2 mg Q30M PRN IV 10/05/24 22:30 Metoprolol Succinate 25 mg DAILY PO 10/07/24 10:00 10/11/24 09:20 25 MG Amiodarone HCl 200 mg Q12HR PO 10/07/24 15:00 10/11/24 09:19 200 MG Vancomycin HCl 250 ml @ 200 mls/hr Q12H IV 10/08/24 14:00 UNV Furosemide 40 mg BID IV 10/08/24 22:00 10/11/24 09:23 40 MG Vancomycin HCl 250 ml @ 200 mls/hr Q12H IV 10/10/24 11:00 10/11/24 11:26 200 MLS/HR Apixaban 5 mg BIDPC PO 10/10/24 19:00 10/11/24 09:22 5 MG Examination: GENERAL:Abnormal, LUNGS:Abnormal, CVS:Abnormal, SKIN:Abnormal laboratory and microbiology Laboratory Tests 10/11/24 05:24 10/09/24 04:39 Test 10/11/24 05:24 Range/Units Serum Glucose 130 H 74-106 mg/dL Microbiology Date/Time Source Procedure Growth Status 10/07/24 14:06 Pleural Fluid Gram Stain - Final Resulted 10/07/24 14:06 Pleural Fluid Body Fluid Culture - Preliminary Resulted 10/06/24 12:31 Nose MRSA Screen - Final Complete 10/05/24 19:19 Blood Blood Culture - Final NO GROWTH AFTER 5 DAYS OF INCUBATION. Complete Problem List/Assessment/Plan Problem List/Assessment/Plan 64 year old male admitted to hospital with sob and transferred to ICU for Afib RVR Acute kidney injury due to hypotension ckd cr 1.1 on admission severe systolic HF EF 15%, large pleural effusions pericardial effusions afib RVR HORACIO improving edema still 2-3+ but improved , continue lasix goal 2-3L neg balance, extra lasix and metolazone dose today increase rate control metoprolol, amio, cardiology eval, fluid restriction US kidney left kidney not visualized, R kidney 12cm rec repeat US currently as dean for strict I/O cardiology Plan discussed with: Patient My Orders My Orders Orders - HUONG SHEPPARD MD Procedure Category Date Status Time Kidney US 10/10/24 Resulted 15:52 Dietary Evaluation Review Comments: 1. Refer to CDE on DC for weight management 2. Continue current plan of care Expected Outcomes/Goals: To meet >75% estimated needs Fu 3-5 days HUONG SHEPPARD MD Oct 11, 2024 14:40
--- NOTE | 2024-10-11 14:51 | DVHPN2 ---
Subjective Patient remains on IV diuretics, generalized anasarca is improving but very slowly. Reviewed: Care Plan Changes from previous H/P or p: No Changes Eyes: No Pain, No Vision change, No Conjunctivae inflammation, No Eyelid inflammation, No Other, No Redness ENT: No Ear pain, No Ear discharge, No Nose pain, No Nose discharge, No Nose congestion, No Mouth pain, No Mouth swelling, No Throat pain, No Throat swelling, No Other Cardiovascular: No Chest Pain; Palpitations; No Orthopnea, No Paroxysmal Noc. Dyspnea, No Edema, No Lt Headedness, No Other Respiratory: No Cough, No Dry; Shortness of breath; No SOB with excertion, No Wheezing, No Hemoptysis, No Pleuritic Pain, No Sputum, No Other Gastrointestinal: No Nausea, No Vomiting, No Abdominal Pain, No Diarrhea, No Constipation, No Melena, No Hematochezia, No Other Genitourinary: No Dysuria, No Frequency, No Incontinence, No Hematuria, No Retention, No Other Musculoskeletal: No other, No neck pain, No shoulder pain, No arm pain, No back pain, No hand pain, No leg pain, No foot pain Skin: No Rash, No Lesions, No Jaundice, No Bruising, No Other Objective Vitals Vital Signs Date Time Temp Pulse Resp B/P (MAP) Pulse Ox O2 Delivery O2 Flow Rate FiO2 10/11/24 09:23 106/77 10/11/24 09:21 114 10/11/24 09:00 97.0 17 99 97.0 10/11/24 08:00 Nasal Cannula* 2 28 Intake/Output Intake and Output 10/11/24 07:00 Intake Total 1490 ml Output Total 2450 ml Balance -960 ml Intake Oral 1240 ml IV Total 250 ml Output Urine Total 2450 ml # Bowel Movements 1 Exam HEENT pupils are reactive Neck is supple CV is S1-S2 irregularly irregular rate and rhythm Respiratory bilateral diminished breath sounds left more than right GI positive bowel sound Extremity 2+ pitting edema 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 Medications Current Medications Medications Dose Ordered Sig/Nadia Route Start Time Stop Time Status Last Admin Dose Admin Digoxin 0.125 mg DAILY PO 10/06/24 10:00 10/11/24 09:21 0.125 MG Vancomycin HCl 0 ml @ 0 mls/hr UD IV 10/05/24 20:45 Levofloxacin/ Dextrose 100 ml @ 100 mls/hr DAILY IV 10/06/24 10:00 10/11/24 09:24 100 MLS/HR Aspirin 81 mg DAILY PO 10/06/24 10:00 10/11/24 09:22 81 MG Acetaminophen/ Hydrocodone Bitart 1 tab Q4HP PRN PO 10/05/24 20:45 10/11/24 13:31 1 TAB Ondansetron HCl 4 mg Q4HP PRN IV 10/05/24 20:45 Docusate Sodium 100 mg BIDPRN PRN PO 10/05/24 20:45 10/07/24 14:18 100 MG Nitroglycerin 0.4 mg Q5MINP PRN SL 10/05/24 22:30 Morphine Sulfate 2 mg Q30M PRN IV 10/05/24 22:30 Metoprolol Succinate 25 mg DAILY PO 10/07/24 10:00 10/11/24 09:20 25 MG Amiodarone HCl 200 mg Q12HR PO 10/07/24 15:00 10/11/24 09:19 200 MG Vancomycin HCl 250 ml @ 200 mls/hr Q12H IV 10/08/24 14:00 UNV Furosemide 40 mg BID IV 10/08/24 22:00 10/11/24 09:23 40 MG Vancomycin HCl 250 ml @ 200 mls/hr Q12H IV 10/10/24 11:00 10/11/24 11:26 200 MLS/HR Apixaban 5 mg BIDPC PO 10/10/24 19:00 10/11/24 09:22 5 MG Laboratory Results Laboratory Tests 10/09/24 04:39 10/11/24 05:24 Chemistry Test 10/11/24 05:24 Calcium Level 9.2 mg/dL (8.7-10.4) Urinalysis Test 10/05/24 18:45 10/06/24 17:49 Urine Color Yellow (Yellow) Urine Clarity Clear (Clear) Urine pH 6.0 (5.0-9.0) Urine Specific [place] 1.031 (1.001-1.035) Urine Protein 2+ (Negative) H Urine Ketones Negative (Negative) Urine Blood Negative /uL (Negative) Urine Nitrite Negative (Negative) Urine Bilirubin Negative (Negative) Urine Urobilinogen 3 mg/dL (Negative) H Urine Leukocyte Esterase Negative /uL (Negative) Urine RBC 2 /hpf (0 - 3) Urine Microscopic WBC 8 /HPF (0-3) H Urine Squamous Epithelial Cells Few /hpf (<5) Urine Bacteria Few /hpf (None Seen) H Urine Hyaline Casts Few /lpf (0 - 2) Urine Mucus Few (None Seen) Urine Glucose Trace mg/dL (Normal) Urine Creatinine 97.15 mg/dL (30.0-125.0) Urine Sodium < 10 mmol/L (40-220) L Urine Total Protein 84.0 mg/dL (1-14) H Microbiology Microbiology Date/Time Source Procedure Growth Status 10/07/24 14:06 Pleural Fluid Gram Stain - Final Resulted 10/07/24 14:06 Pleural Fluid Body Fluid Culture - Preliminary Resulted 10/06/24 12:31 Nose MRSA Screen - Final Complete 10/05/24 19:19 Blood Blood Culture - Final NO GROWTH AFTER 5 DAYS OF INCUBATION. Complete Assessment/Plan Assessment/Plan 64-year-old male with a no significant past medical history presented to the hospital with the increasing shortness a breath and leg swelling found to have 1. AFib with RVR , currently rate controlled 2. Left-sided pleural effusion status post thoracentesis 3. Acute CHF exacerbation with systolic dysfunction 4. Acute kidney injury suspected secondary to vasomotor nephropathy 5. Transaminitis 6. History of alcoholism 6. Morbid obesity classI -continue IV diuretics, continue Eliquis for primary prevention of stroke -continue beta aurelio/metolazone Nephrology consultation appreciated, follow up Cardiology Plan discussed with: Patient, Spouse My Orders Orders - SAIMA SAUNDERS MD Procedure Category Date Status Time Apixaban (Eliquis) PHA 10/10/24 In Process 19:00 Pt Request For Service PT 10/11/24 Logged 14:48 Date of Service: Oct 11, 2024 Billing Provider: SAIMA SAUNDERS MD Common Visit Codes: [id number] INP/OBS CARE(MOD) SAIMA SAUNDERS MD Oct 11, 2024 14:51
--- NOTE | 2024-10-11 23:51 | DVHPN2 ---
Progress Note - Dictate Date Seen: Oct 11, 2024 Medical Necessity Reason Pt with a Central, PICC or Fol: Yes The following are medically ne: Dean Catheter Reason for dean catheter: Strict I&O Subjective Patient was seen and evaluated in follow up. Patient complains of generalized discomfort. He is on 2 LPM NC. K 3.3, BUN 32, LABEL REMOVER 1.35. Renal US showed left kidney appears to be in the pelvis/left lower quadrant. No hydronephrosis. Large left pleural effusion. Telemetry reviewed. vital signs Vital Sign Date Time Temp Pulse Resp B/P (MAP) Pulse Ox O2 Delivery O2 Flow Rate FiO2 10/11/24 09:23 106/77 10/11/24 09:21 114 10/11/24 09:00 97.0 17 99 97.0 10/10/24 20:00 Nasal Cannula* 2 28 Total Intake and Output 10/10/24 10/10/24 10/11/24 15:00 23:00 07:00 Intake Total 250 ml 1120 ml 120 ml Output Total 1600 ml 850 ml Balance 250 ml -480 ml -730 ml medications Current Medications Medications Dose Ordered Sig/Nadia Route Start Time Stop Time Status Last Admin Dose Admin Digoxin 0.125 mg DAILY PO 10/06/24 10:00 10/11/24 09:21 0.125 MG Vancomycin HCl 0 ml @ 0 mls/hr UD IV 10/05/24 20:45 Levofloxacin/ Dextrose 100 ml @ 100 mls/hr DAILY IV 10/06/24 10:00 10/11/24 09:24 100 MLS/HR Aspirin 81 mg DAILY PO 10/06/24 10:00 10/11/24 09:22 81 MG Acetaminophen/ Hydrocodone Bitart 1 tab Q4HP PRN PO 10/05/24 20:45 10/10/24 22:26 1 TAB Ondansetron HCl 4 mg Q4HP PRN IV 10/05/24 20:45 Docusate Sodium 100 mg BIDPRN PRN PO 10/05/24 20:45 10/07/24 14:18 100 MG Nitroglycerin 0.4 mg Q5MINP PRN SL 10/05/24 22:30 Morphine Sulfate 2 mg Q30M PRN IV 10/05/24 22:30 Metoprolol Succinate 25 mg DAILY PO 10/07/24 10:00 10/11/24 09:20 25 MG Amiodarone HCl 200 mg Q12HR PO 10/07/24 15:00 10/11/24 09:19 200 MG Vancomycin HCl 250 ml @ 200 mls/hr Q12H IV 10/08/24 14:00 UNV Furosemide 40 mg BID IV 10/08/24 22:00 10/11/24 09:23 40 MG Vancomycin HCl 250 ml @ 200 mls/hr Q12H IV 10/10/24 11:00 10/11/24 11:26 200 MLS/HR Apixaban 5 mg BIDPC PO 10/10/24 19:00 10/11/24 09:22 5 MG objective GENERAL: Alert and oriented x 3. No acute distress. Morbidly obese. EYES: PERRL, EOMI. Anicteric. HENT: Moist mucous membranes. LUNGS: Diminished breath sounds. CARDIOVASCULAR: Irregular rate and rhythm. ABDOMEN: Soft, nontender and nondistended. EXTREMITIES: +3 pitting edema. NEUROLOGIC: No focal neurological deficits. SKIN: Warm, dry. laboratory and microbiology Laboratory Tests 10/11/24 05:24 10/09/24 04:39 Test 10/11/24 05:24 Range/Units Serum Glucose 130 H 74-106 mg/dL Problem List Atrial fibrillation with rapid ventricular response, newly diagnosed. Rule out structural heart disease. Left pleural effusion. Sepsis. Hyperkalemia. Acute kidney injury. Transaminitis. Prediabetes. History of alcoholism. Morbidly obese. Assessment/Plan Continued all current supportive medical care. Morphine and [place] for pain management. Amiodarone. Aspirin, Metoprolol. Digoxin. DVT prophylactics. Diuretics with Lasix. IV antibiotics as ordered. Additional plan as per the hospital course. Dietary Evaluation Review Comments: 1. Refer to CDE on DC for weight management 2. Continue current plan of care Expected Outcomes/Goals: To meet >75% estimated needs Fu 3-5 days Plan discussed with: Patient XIOMY JERONIMO MD Oct 11, 2024 11:43
[2024-10-12] VITALS (9 sets, daily range): BP systolic 104–114; BP diastolic 64–85; PULSE 54–123; RESP 16–20; TEMP 97.4–98.2; O2SAT 95–98
[2024-10-12 09:20] LABS: Anion Gap 10 (5-15); Potassium 4.3 mmol/L (3.5-5.1); Sodium 138 mmol/L (136-145)
[2024-10-12 09:22] LABS: Calcium 10.4 mg/dL (8.7-10.4)
[2024-10-12 09:25] LABS: Carbon Dioxide 33 mmol/L (20-31); Chloride 95 mmol/L (98-107)
[2024-10-12 09:26] LABS: BUN/Creatinine Ratio 22.6 (10.0-20.0)
[2024-10-12 09:27] LABS: Blood Urea Nitrogen 40 mg/dL (9-23); Glucose 163 mg/dL (74-106)
--- NOTE | 2024-10-12 11:53 | DVHPN2 ---
Progress Note Date Seen: Oct 12, 2024 Medical Necessity Reason Pt with a Central, PICC or Fol: Yes The following are medically ne: Dean Catheter Reason for dean catheter: Strict I&O Subjective Patient reports: Feels better Objective vital signs Vital Sign Date Time Temp Pulse Resp B/P (MAP) Pulse Ox O2 Delivery O2 Flow Rate FiO2 10/12/24 09:24 111/80 10/12/24 09:23 114 10/12/24 09:00 97.7 17 96 97.7 10/12/24 07:58 Nasal Cannula* 2 28 Total Intake and Output 10/11/24 10/11/24 10/12/24 15:00 23:00 07:00 Intake Total 350 ml 300 ml 800 ml Output Total 2200 ml 525 ml Balance 350 ml -1900 ml 275 ml medications Current Medications Medications Dose Ordered Sig/Nadia Route Start Time Stop Time Status Last Admin Dose Admin Digoxin 0.125 mg DAILY PO 10/06/24 10:00 10/12/24 09:21 0.125 MG Levofloxacin/ Dextrose 100 ml @ 100 mls/hr DAILY IV 10/06/24 10:00 10/12/24 09:24 100 MLS/HR Aspirin 81 mg DAILY PO 10/06/24 10:00 10/12/24 09:23 81 MG Acetaminophen/ Hydrocodone Bitart 1 tab Q4HP PRN PO 10/05/24 20:45 10/11/24 22:10 1 TAB Ondansetron HCl 4 mg Q4HP PRN IV 10/05/24 20:45 Docusate Sodium 100 mg BIDPRN PRN PO 10/05/24 20:45 10/07/24 14:18 100 MG Nitroglycerin 0.4 mg Q5MINP PRN SL 10/05/24 22:30 Morphine Sulfate 2 mg Q30M PRN IV 10/05/24 22:30 Metoprolol Succinate 25 mg DAILY PO 10/07/24 10:00 10/12/24 09:23 25 MG Amiodarone HCl 200 mg Q12HR PO 10/07/24 15:00 10/12/24 09:23 200 MG Vancomycin HCl 250 ml @ 200 mls/hr Q12H IV 10/08/24 14:00 UNV Furosemide 40 mg BID IV 10/08/24 22:00 10/12/24 09:24 40 MG Apixaban 5 mg BIDPC PO 10/10/24 19:00 10/12/24 09:23 5 MG Examination: GENERAL:Abnormal, LUNGS:Abnormal, CVS:Abnormal, SKIN:Abnormal laboratory and microbiology Laboratory Tests 10/12/24 08:23 10/09/24 04:39 Test 10/12/24 08:23 Range/Units Serum Glucose 163 H 74-106 mg/dL Microbiology Date/Time Source Procedure Growth Status 10/07/24 14:06 Pleural Fluid Gram Stain - Final Resulted 10/07/24 14:06 Pleural Fluid Body Fluid Culture - Preliminary Resulted 10/06/24 12:31 Nose MRSA Screen - Final Complete 10/05/24 19:19 Blood Blood Culture - Final NO GROWTH AFTER 5 DAYS OF INCUBATION. Complete Problem List/Assessment/Plan Problem List/Assessment/Plan 64 year old male admitted to hospital with sob and transferred to ICU for Afib RVR Acute kidney injury due to hypotension ckd cr 1.1 on admission severe systolic HF EF 15%, large pleural effusions pericardial effusions afib RVR edema still 2-3+ but improved but still has significant edema, mild cr bump likely in setting of fluid mobilization. rec leg elevation and IV albumin x 1 today convert to po resume. consider K sparing due to low EF if BP tolerates rate control metoprolol, amio, cardiology eval, fluid restriction US kidney left kidney not visualized, R kidney 12cm rec repeat US DC dean today give urinal cardiology family at bedside agree with plan when respiratory status becomes stable then patient can have 2 week f/u in renal clinic Plan discussed with: Patient My Orders My Orders Orders - HUONG SHEPPARD MD Procedure Category Date Status Time Basic Metabolic Panel LAB 10/13/24 Verified 04:00 Dietary Evaluation Review Comments: 1. Refer to CDE on DC for weight management 2. Continue current plan of care Expected Outcomes/Goals: To meet >75% estimated needs Fu 3-5 days HUONG SHEPPARD MD Oct 12, 2024 11:53
--- NOTE | 2024-10-12 13:28 | DVHPN2 ---
Progress Note - Dictate Date Seen: Oct 12, 2024 Medical Necessity Reason Pt with a Central, PICC or Fol: Yes The following are medically ne: Dean Catheter Reason for dean catheter: Strict I&O Subjective Patient was seen and evaluated in follow up. No overnight events. Patient complains of generalized discomfort. Patient is on 2 LPM NC with humidifier. 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 Telemetry reviewed. vital signs Vital Sign Date Time Temp Pulse Resp B/P (MAP) Pulse Ox O2 Delivery O2 Flow Rate FiO2 10/12/24 09:24 111/80 10/12/24 09:23 114 10/12/24 09:00 97.7 17 96 97.7 10/12/24 07:58 Nasal Cannula* 2 28 Total Intake and Output 10/11/24 10/11/24 10/12/24 15:00 23:00 07:00 Intake Total 350 ml 300 ml 800 ml Output Total 2200 ml 525 ml Balance 350 ml -1900 ml 275 ml medications Current Medications Medications Dose Ordered Sig/Nadia Route Start Time Stop Time Status Last Admin Dose Admin Digoxin 0.125 mg DAILY PO 10/06/24 10:00 10/12/24 09:21 0.125 MG Levofloxacin/ Dextrose 100 ml @ 100 mls/hr DAILY IV 10/06/24 10:00 10/12/24 09:24 100 MLS/HR Aspirin 81 mg DAILY PO 10/06/24 10:00 10/12/24 09:23 81 MG Acetaminophen/ Hydrocodone Bitart 1 tab Q4HP PRN PO 10/05/24 20:45 10/11/24 22:10 1 TAB Ondansetron HCl 4 mg Q4HP PRN IV 10/05/24 20:45 Docusate Sodium 100 mg BIDPRN PRN PO 10/05/24 20:45 10/07/24 14:18 100 MG Nitroglycerin 0.4 mg Q5MINP PRN SL 10/05/24 22:30 Morphine Sulfate 2 mg Q30M PRN IV 10/05/24 22:30 Metoprolol Succinate 25 mg DAILY PO 10/07/24 10:00 10/12/24 09:23 25 MG Amiodarone HCl 200 mg Q12HR PO 10/07/24 15:00 10/12/24 09:23 200 MG Vancomycin HCl 250 ml @ 200 mls/hr Q12H IV 10/08/24 14:00 UNV Apixaban 5 mg BIDPC PO 10/10/24 19:00 10/12/24 09:23 5 MG Furosemide 60 mg BIDD PO 10/12/24 18:00 Sacubitril/ Valsartan 1 tab BID PO 10/12/24 22:00 objective GENERAL: Alert and oriented x 3. No acute distress. Morbidly obese. EYES: PERRL, EOMI. Anicteric. HENT: Moist mucous membranes. LUNGS: Diminished breath sounds. CARDIOVASCULAR: Irregular rate and rhythm. ABDOMEN: Soft, nontender and nondistended. EXTREMITIES: +3 pitting edema. NEUROLOGIC: No focal neurological deficits. SKIN: Warm, dry. laboratory and microbiology Laboratory Tests 10/12/24 08:23 10/09/24 04:39 Test 10/12/24 08:23 Range/Units Serum Glucose 163 H 74-106 mg/dL Problem List Atrial fibrillation with rapid ventricular response, newly diagnosed. Rule out structural heart disease. Left pleural effusion. Sepsis. Hyperkalemia. Acute kidney injury. Transaminitis. Prediabetes. History of alcoholism. Morbidly obese. Assessment/Plan Continued all current supportive medical care. Morphine and [place] for pain management. Amiodarone. Aspirin, Metoprolol. Digoxin. DVT prophylactics. Diuretics with Lasix. IV antibiotics as ordered. Additional plan as per the hospital course. Dietary Evaluation Review Comments: 1. Refer to CDE on DC for weight management 2. Continue current plan of care Expected Outcomes/Goals: To meet >75% estimated needs Fu 3-5 days Plan discussed with: Patient XIOMY JERONIMO MD Oct 12, 2024 12:26
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
[2024-10-12] MEDS: FUROSEMIDE 20 MG TAB PO SCH (17:36)
[2024-10-12] MEDS: SACUBITRIL-VALSARTAN 24mg/26mg TAB PO SCH (21:59)
[2024-10-13] VITALS (8 sets, daily range): BP systolic 82–185; BP diastolic 50–136; PULSE 54–96; RESP 15–18; TEMP 97.2–98.2; O2SAT 92–98
[2024-10-13] MEDS ORDERED: SODIUM CHLORIDE 0.9% 2,450 ML IV ONE (01:15)
[2024-10-13] MEDS: MIDODRINE HCL 10 MG TAB PO ONE ×2 (01:18→04:58)
[2024-10-13] MEDS: SODIUM CHLORIDE 0.9% 500 ML IV ONE ×2 (01:21→04:58)
[2024-10-13 08:06] LABS: Anion Gap 12 (5-15); Carbon Dioxide 27 mmol/L (20-31); Chloride 97 mmol/L (98-107); Potassium 3.6 mmol/L (3.5-5.1); Sodium 136 mmol/L (136-145)
[2024-10-13 08:07] LABS: Calcium 9.4 mg/dL (8.7-10.4)
[2024-10-13 08:12] LABS: BUN/Creatinine Ratio 19.5 (10.0-20.0)
[2024-10-13 08:15] LABS: Blood Urea Nitrogen 46 mg/dL (9-23); Glucose 153 mg/dL (74-106)
[2024-10-13] MEDS: MIDODRINE HCL 10 MG TAB PO SCH (12:44)
--- NOTE | 2024-10-13 14:58 | DVHPN2 ---
Progress Note Date Seen: Oct 13, 2024 Medical Necessity Reason Pt with a Central, PICC or Fol: No Reason for dean catheter: Strict I&O Subjective Patient reports: Feels worse Objective vital signs Vital Sign Date Time Temp Pulse Resp B/P (MAP) Pulse Ox O2 Delivery O2 Flow Rate FiO2 10/13/24 13:28 98.2 87 18 142/123 (129) 92 98.2 10/13/24 08:00 Nasal Cannula* 3 32 Total Intake and Output 10/12/24 10/12/24 10/13/24 15:00 23:00 07:00 Intake Total 100 ml 500 ml 500 ml Output Total 1000 ml 600 ml Balance 100 ml -500 ml -100 ml medications Current Medications Medications Dose Ordered Sig/Nadia Route Start Time Stop Time Status Last Admin Dose Admin Digoxin 0.125 mg DAILY PO 10/06/24 10:00 10/13/24 09:23 0.125 MG Aspirin 81 mg DAILY PO 10/06/24 10:00 10/13/24 09:25 81 MG Acetaminophen/ Hydrocodone Bitart 1 tab Q4HP PRN PO 10/05/24 20:45 10/13/24 12:44 1 TAB Ondansetron HCl 4 mg Q4HP PRN IV 10/05/24 20:45 Docusate Sodium 100 mg BIDPRN PRN PO 10/05/24 20:45 10/07/24 14:18 100 MG Nitroglycerin 0.4 mg Q5MINP PRN SL 10/05/24 22:30 Morphine Sulfate 2 mg Q30M PRN IV 10/05/24 22:30 Metoprolol Succinate 25 mg DAILY PO 10/07/24 10:00 10/12/24 09:23 25 MG Amiodarone HCl 200 mg Q12HR PO 10/07/24 15:00 10/12/24 21:59 200 MG Vancomycin HCl 250 ml @ 200 mls/hr Q12H IV 10/08/24 14:00 UNV Apixaban 5 mg BIDPC PO 10/10/24 19:00 10/13/24 09:23 5 MG Furosemide 60 mg BIDD PO 10/12/24 18:00 10/12/24 17:36 60 MG Midodrine 10 mg TID@0600,1200,1800 PO 10/13/24 12:00 10/13/24 12:44 10 MG Examination: GENERAL:Abnormal, LUNGS:Normal, CVS:Normal, SKIN:Abnormal laboratory and microbiology Laboratory Tests 10/13/24 06:53 10/09/24 04:39 Test 10/13/24 06:53 Range/Units Serum Glucose 153 H 74-106 mg/dL Microbiology Date/Time Source Procedure Growth Status 10/07/24 14:06 Pleural Fluid Gram Stain - Final Complete 10/07/24 14:06 Pleural Fluid Body Fluid Culture - Final Complete 10/06/24 12:31 Nose MRSA Screen - Final Complete 10/05/24 19:19 Blood Blood Culture - Final NO GROWTH AFTER 5 DAYS OF INCUBATION. Complete Problem List/Assessment/Plan Problem List/Assessment/Plan 64 year old male admitted to hospital with sob and transferred to ICU for Afib RVR Acute kidney injury due to hypotension ckd cr 1.1 on admission severe systolic HF EF 15%, large pleural effusions pericardial effusion afib RVR lasix now po patient did not tolerate entresto due to hypotension, now on midodrine rate control metoprolol, amio, cardiology eval, fluid restriction US kidney left kidney not visualized, R kidney 12cm rec repeat US cardiology family at bedside agree with plan when respiratory status becomes stable then patient can have 2 week f/u in renal clinic Plan discussed with: Patient, Daughter Dietary Evaluation Review Comments: 1. Refer to CDE on DC for weight management 2. Continue current plan of care Expected Outcomes/Goals: To meet >75% estimated needs Fu 3-5 days HUONG SHEPPARD MD Oct 13, 2024 14:58
--- NOTE | 2024-10-13 15:35 | DVHPN2 ---
Subjective On 3 liters O2 BP low 2+ edema in feet Reviewed: Care Plan Changes from previous H/P or p: Changes Eyes: No Pain, No Vision change, No Conjunctivae inflammation, No Eyelid inflammation, No Other, No Redness ENT: No Ear pain, No Ear discharge, No Nose pain, No Nose discharge, No Nose congestion, No Mouth pain, No Mouth swelling, No Throat pain, No Throat swelling, No Other Cardiovascular: No Chest Pain; Palpitations; No Orthopnea, No Paroxysmal Noc. Dyspnea, No Edema, No Lt Headedness, No Other Respiratory: No Cough, No Dry; Shortness of breath; No SOB with excertion, No Wheezing, No Hemoptysis, No Pleuritic Pain, No Sputum, No Other Gastrointestinal: No Nausea, No Vomiting, No Abdominal Pain, No Diarrhea, No Constipation, No Melena, No Hematochezia, No Other Genitourinary: No Dysuria, No Frequency, No Incontinence, No Hematuria, No Retention, No Other Musculoskeletal: No other, No neck pain, No shoulder pain, No arm pain, No back pain, No hand pain, No leg pain, No foot pain Skin: No Rash, No Lesions, No Jaundice, No Bruising, No Other Objective Vitals Vital Signs Date Time Temp Pulse Resp B/P (MAP) Pulse Ox O2 Delivery O2 Flow Rate FiO2 10/13/24 13:28 98.2 87 18 142/123 (129) 92 98.2 10/13/24 08:00 Nasal Cannula* 3 32 Intake/Output Intake and Output 10/13/24 06:59 Intake Total 1100 ml Output Total 1600 ml Balance -500 ml Intake Oral 1000 ml IV Total 100 ml Output Urine Total 1600 ml # Bowel Movements 2 General Appearance: Alert, Oriented X3, mild distress Lungs: Other (Bilateral rhonchi) Cardiovascular: Regular rate, Normal S1, Normal S2, No murmurs Abdomen: Normal bowel sounds, Soft, No tenderness Extremities: Other (2+ edema B) Medications Current Medications Medications Dose Ordered Sig/Nadia Route Start Time Stop Time Status Last Admin Dose Admin Digoxin 0.125 mg DAILY PO 10/06/24 10:00 10/13/24 09:23 0.125 MG Aspirin 81 mg DAILY PO 10/06/24 10:00 10/13/24 09:25 81 MG Acetaminophen/ Hydrocodone Bitart 1 tab Q4HP PRN PO 10/05/24 20:45 10/13/24 12:44 1 TAB Ondansetron HCl 4 mg Q4HP PRN IV 10/05/24 20:45 Docusate Sodium 100 mg BIDPRN PRN PO 10/05/24 20:45 10/07/24 14:18 100 MG Nitroglycerin 0.4 mg Q5MINP PRN SL 10/05/24 22:30 Morphine Sulfate 2 mg Q30M PRN IV 10/05/24 22:30 Metoprolol Succinate 25 mg DAILY PO 10/07/24 10:00 10/12/24 09:23 25 MG Amiodarone HCl 200 mg Q12HR PO 10/07/24 15:00 10/12/24 21:59 200 MG Vancomycin HCl 250 ml @ 200 mls/hr Q12H IV 10/08/24 14:00 UNV Apixaban 5 mg BIDPC PO 10/10/24 19:00 10/13/24 09:23 5 MG Furosemide 60 mg BIDD PO 10/12/24 18:00 10/12/24 17:36 60 MG Midodrine 10 mg TID@0600,1200,1800 PO 10/13/24 12:00 10/13/24 12:44 10 MG Laboratory Results Laboratory Tests 10/09/24 04:39 10/13/24 06:53 Chemistry Test 10/13/24 06:53 Calcium Level 9.4 mg/dL (8.7-10.4) Urinalysis Test 10/05/24 18:45 10/06/24 17:49 Urine Color Yellow (Yellow) Urine Clarity Clear (Clear) Urine pH 6.0 (5.0-9.0) Urine Specific [place] 1.031 (1.001-1.035) Urine Protein 2+ (Negative) H Urine Ketones Negative (Negative) Urine Blood Negative /uL (Negative) Urine Nitrite Negative (Negative) Urine Bilirubin Negative (Negative) Urine Urobilinogen 3 mg/dL (Negative) H Urine Leukocyte Esterase Negative /uL (Negative) Urine RBC 2 /hpf (0 - 3) Urine Microscopic WBC 8 /HPF (0-3) H Urine Squamous Epithelial Cells Few /hpf (<5) Urine Bacteria Few /hpf (None Seen) H Urine Hyaline Casts Few /lpf (0 - 2) Urine Mucus Few (None Seen) Urine Glucose Trace mg/dL (Normal) Urine Creatinine 97.15 mg/dL (30.0-125.0) Urine Sodium < 10 mmol/L (40-220) L Urine Total Protein 84.0 mg/dL (1-14) H Microbiology Microbiology Date/Time Source Procedure Growth Status 10/07/24 14:06 Pleural Fluid Gram Stain - Final Complete 10/07/24 14:06 Pleural Fluid Body Fluid Culture - Final Complete 10/06/24 12:31 Nose MRSA Screen - Final Complete 10/05/24 19:19 Blood Blood Culture - Final NO GROWTH AFTER 5 DAYS OF INCUBATION. Complete Assessment/Plan Assessment/Plan Acute CHF exacerbation with systolic dysfunction AFib with RVR , currently rate controlled Left-sided pleural effusion status post thoracentesis Acute kidney injury suspected secondary to vasomotor nephropathy Cardiomyopathy with EF of 15% History of alcoholism Morbid obesity class I Hypotension Pericardial effusion PLAN: No IV fluids Continue Lasix Midodrine Amiodarone O2 Aspirin Digoxin Metoprolo, hold if low BP DC Entresto due to low BP Life vest: Pending Discussed with patient and daughter at the bedside Plan discussed with: Patient, Daughter Date of Service: Oct 13, 2024 Billing Provider: RONY BROWN MD Common Visit Codes: [id number] INP/OBS CARE(HIGH) RONY BROWN MD Oct 13, 2024 15:35
--- NOTE | 2024-10-13 18:43 | DVHPN2 ---
Progress Note - Dictate Date Seen: Oct 13, 2024 Medical Necessity Reason Pt with a Central, PICC or Fol: Yes The following are medically ne: Dean Catheter Reason for dean catheter: Strict I&O Subjective Patient was seen and evaluated in follow up. Patient complains of generalized pain. He is on 3 LPM NC with humidifier. Patient awaiting [place] life vest. BUN 46, [employer] ASSISTANT 2.36. Telemetry reviewed. vital signs Vital Sign Date Time Temp Pulse Resp B/P (MAP) Pulse Ox O2 Delivery O2 Flow Rate FiO2 10/13/24 10:00 80 96/37 10/13/24 08:44 97.2 16 98 97.2 10/13/24 08:00 Nasal Cannula* 3 32 Total Intake and Output 10/12/24 10/12/24 10/13/24 15:00 23:00 07:00 Intake Total 100 ml 500 ml 500 ml Output Total 1000 ml 600 ml Balance 100 ml -500 ml -100 ml medications Current Medications Medications Dose Ordered Sig/Nadia Route Start Time Stop Time Status Last Admin Dose Admin Digoxin 0.125 mg DAILY PO 10/06/24 10:00 10/13/24 09:23 0.125 MG Aspirin 81 mg DAILY PO 10/06/24 10:00 10/13/24 09:25 81 MG Acetaminophen/ Hydrocodone Bitart 1 tab Q4HP PRN PO 10/05/24 20:45 10/12/24 17:34 1 TAB Ondansetron HCl 4 mg Q4HP PRN IV 10/05/24 20:45 Docusate Sodium 100 mg BIDPRN PRN PO 10/05/24 20:45 10/07/24 14:18 100 MG Nitroglycerin 0.4 mg Q5MINP PRN SL 10/05/24 22:30 Morphine Sulfate 2 mg Q30M PRN IV 10/05/24 22:30 Metoprolol Succinate 25 mg DAILY PO 10/07/24 10:00 10/12/24 09:23 25 MG Amiodarone HCl 200 mg Q12HR PO 10/07/24 15:00 10/12/24 21:59 200 MG Vancomycin HCl 250 ml @ 200 mls/hr Q12H IV 10/08/24 14:00 UNV Apixaban 5 mg BIDPC PO 10/10/24 19:00 10/13/24 09:23 5 MG Furosemide 60 mg BIDD PO 10/12/24 18:00 10/12/24 17:36 60 MG Sacubitril/ Valsartan 1 tab BID PO 10/12/24 22:00 10/12/24 21:59 1 TAB Midodrine 10 mg TID@0600,1200,1800 PO 10/13/24 12:00 objective GENERAL: Alert and oriented x 3. No acute distress. Morbidly obese. EYES: PERRL, EOMI. Anicteric. HENT: Moist mucous membranes. LUNGS: Diminished breath sounds. CARDIOVASCULAR: Irregular rate and rhythm. ABDOMEN: Soft, nontender and nondistended. EXTREMITIES: +3 pitting edema. NEUROLOGIC: No focal neurological deficits. SKIN: Warm, dry. laboratory and microbiology Laboratory Tests 10/13/24 06:53 10/09/24 04:39 Test 10/13/24 06:53 Range/Units Serum Glucose 153 H 74-106 mg/dL Problem List Atrial fibrillation with rapid ventricular response, newly diagnosed. Rule out structural heart disease. Left pleural effusion. Sepsis. Hyperkalemia. Acute kidney injury. Transaminitis. Prediabetes. History of alcoholism. Morbidly obese. Assessment/Plan Continued all current supportive medical care. Morphine and [place] for pain management. Amiodarone. Aspirin, Metoprolol. Digoxin. Entresto. Eliquis. DVT prophylactics. Diuretics with Lasix. Additional plan as per the hospital course. Dietary Evaluation Review Comments: 1. Refer to CDE on DC for weight management 2. Continue current plan of care Expected Outcomes/Goals: To meet >75% estimated needs Fu 3-5 days Plan discussed with: Patient XIOMY JERONIMO MD Oct 13, 2024 11:34
[2024-10-14] VITALS (8 sets, daily range): BP systolic 93–103; BP diastolic 67–72; PULSE 56–110; RESP 15–18; TEMP 97.6–98.2; O2SAT 91–98
[2024-10-14 06:10] LABS: Anion Gap 14 (5-15); Carbon Dioxide 26 mmol/L (20-31); Potassium 3.5 mmol/L (3.5-5.1)
[2024-10-14 06:11] LABS: Calcium 9.1 mg/dL (8.7-10.4)
[2024-10-14 06:16] LABS: BUN/Creatinine Ratio 24.1 (10.0-20.0); Chloride 93 mmol/L (98-107); Glucose 166 mg/dL (74-106); Sodium 133 mmol/L (136-145)
[2024-10-14 06:17] LABS: Blood Urea Nitrogen 62 mg/dL (9-23); Magnesium 2.6 mg/dL (1.6-2.6)
[2024-10-14] MEDS: DOPamine 1600MCG/ML D5W 250 ML IV SCH (08:30)
[2024-10-14] MEDS: ONDANSETRON HCL 4 MG/2 ML VIAL IV PRN (09:45)
--- NOTE | 2024-10-14 13:06 | DVHPN2 ---
Subjective No new complaints Reviewed: Care Plan Changes from previous H/P or p: Changes Eyes: No Pain, No Vision change, No Conjunctivae inflammation, No Eyelid inflammation, No Other, No Redness ENT: No Ear pain, No Ear discharge, No Nose pain, No Nose discharge, No Nose congestion, No Mouth pain, No Mouth swelling, No Throat pain, No Throat swelling, No Other Cardiovascular: No Chest Pain; Palpitations; No Orthopnea, No Paroxysmal Noc. Dyspnea, No Edema, No Lt Headedness, No Other Respiratory: No Cough, No Dry; Shortness of breath; No SOB with excertion, No Wheezing, No Hemoptysis, No Pleuritic Pain, No Sputum, No Other Gastrointestinal: No Nausea, No Vomiting, No Abdominal Pain, No Diarrhea, No Constipation, No Melena, No Hematochezia, No Other Genitourinary: No Dysuria, No Frequency, No Incontinence, No Hematuria, No Retention, No Other Musculoskeletal: No other, No neck pain, No shoulder pain, No arm pain, No back pain, No hand pain, No leg pain, No foot pain Skin: No Rash, No Lesions, No Jaundice, No Bruising, No Other Objective Vitals Vital Signs Date Time Temp Pulse Resp B/P (MAP) Pulse Ox O2 Delivery O2 Flow Rate FiO2 10/14/24 10:17 110 10/14/24 08:52 97.6 18 96/68 (77) 93 97.6 10/14/24 08:00 Nasal Cannula* 3 32 Intake/Output Intake and Output 10/14/24 07:00 Intake Total 995 ml Output Total 100 ml Balance 895 ml Intake Oral 995 ml Output Urine Total 100 ml General Appearance: Alert, Oriented X3, mild distress Lungs: Other (Bilateral rhonchi) Cardiovascular: Regular rate, Normal S1, Normal S2, No murmurs Abdomen: Normal bowel sounds, Soft, No tenderness Extremities: Other (2+ edema B) Medications Current Medications Medications Dose Ordered Sig/Nadia Route Start Time Stop Time Status Last Admin Dose Admin Digoxin 0.125 mg DAILY PO 10/06/24 10:00 10/14/24 10:17 0.125 MG Aspirin 81 mg DAILY PO 10/06/24 10:00 10/14/24 10:16 81 MG Acetaminophen/ Hydrocodone Bitart 1 tab Q4HP PRN PO 10/05/24 20:45 10/13/24 12:44 1 TAB Ondansetron HCl 4 mg Q4HP PRN IV 10/05/24 20:45 10/14/24 09:45 4 MG Docusate Sodium 100 mg BIDPRN PRN PO 10/05/24 20:45 10/07/24 14:18 100 MG Nitroglycerin 0.4 mg Q5MINP PRN SL 10/05/24 22:30 Morphine Sulfate 2 mg Q30M PRN IV 10/05/24 22:30 Metoprolol Succinate 25 mg DAILY PO 10/07/24 10:00 10/12/24 09:23 25 MG Amiodarone HCl 200 mg Q12HR PO 10/07/24 15:00 10/13/24 21:16 200 MG Vancomycin HCl 250 ml @ 200 mls/hr Q12H IV 10/08/24 14:00 UNV Apixaban 5 mg BIDPC PO 10/10/24 19:00 10/14/24 10:17 5 MG Furosemide 60 mg BIDD PO 10/12/24 18:00 10/12/24 17:36 60 MG Midodrine 10 mg TID@0600,1200,1800 PO 10/13/24 12:00 10/14/24 11:47 10 MG Dopamine HCl/ Dextrose 250 ml @ 9.503 mls/ hr Q24H IV 10/14/24 07:00 10/14/24 08:30 9.503 MLS/HR Laboratory Results Laboratory Tests 10/09/24 04:39 10/14/24 05:24 Chemistry Test 10/14/24 05:24 Calcium Level 9.1 mg/dL (8.7-10.4) Magnesium Level 2.6 mg/dL (1.6-2.6) Urinalysis Test 10/05/24 18:45 10/06/24 17:49 Urine Color Yellow (Yellow) Urine Clarity Clear (Clear) Urine pH 6.0 (5.0-9.0) Urine Specific [place] 1.031 (1.001-1.035) Urine Protein 2+ (Negative) H Urine Ketones Negative (Negative) Urine Blood Negative /uL (Negative) Urine Nitrite Negative (Negative) Urine Bilirubin Negative (Negative) Urine Urobilinogen 3 mg/dL (Negative) H Urine Leukocyte Esterase Negative /uL (Negative) Urine RBC 2 /hpf (0 - 3) Urine Microscopic WBC 8 /HPF (0-3) H Urine Squamous Epithelial Cells Few /hpf (<5) Urine Bacteria Few /hpf (None Seen) H Urine Hyaline Casts Few /lpf (0 - 2) Urine Mucus Few (None Seen) Urine Glucose Trace mg/dL (Normal) Urine Creatinine 97.15 mg/dL (30.0-125.0) Urine Sodium < 10 mmol/L (40-220) L Urine Total Protein 84.0 mg/dL (1-14) H Microbiology Microbiology Date/Time Source Procedure Growth Status 10/07/24 14:06 Pleural Fluid Gram Stain - Final Complete 10/07/24 14:06 Pleural Fluid Body Fluid Culture - Final Complete 10/06/24 12:31 Nose MRSA Screen - Final Complete 10/05/24 19:19 Blood Blood Culture - Final NO GROWTH AFTER 5 DAYS OF INCUBATION. Complete Assessment/Plan Assessment/Plan Acute CHF exacerbation with systolic dysfunction AFib with RVR , currently rate controlled Left-sided pleural effusion status post thoracentesis Acute kidney injury suspected secondary to vasomotor nephropathy Cardiomyopathy with EF of 15% History of alcoholism Morbid obesity class I Hypotension Pericardial effusion PLAN: No IV fluids Continue Lasix Midodrine Amiodarone O2 Aspirin Digoxin Metoprolo, hold if low BP DC Entresto due to low BP Life vest: Pending Discussed with patient and daughter at the bedside 10/14/2024: Continue the current management Dopamine was started by Nephrology Midodrine Eliquis Aspirin Digoxin Lasix Entresto was discontinued Discussed with the at the bedside Plan discussed with: Patient Date of Service: Oct 14, 2024 Billing Provider: RONY BROWN MD Common Visit Codes: [id number] INP/OBS CARE(HIGH) RONY BROWN MD Oct 14, 2024 13:06
--- NOTE | 2024-10-14 15:28 | DVHPN2 ---
Progress Note Date Seen: Oct 14, 2024 Medical Necessity Reason Pt with a Central, PICC or Fol: No Reason for dean catheter: Strict I&O Subjective Patient reports: Feels worse Objective vital signs Vital Sign Date Time Temp Pulse Resp B/P (MAP) Pulse Ox O2 Delivery O2 Flow Rate FiO2 10/14/24 13:25 98.0 57 17 97/70 (79) 98 98.0 10/14/24 08:00 Nasal Cannula* 3 32 Total Intake and Output 10/13/24 10/13/24 10/14/24 15:00 23:00 07:00 Intake Total 400 ml 595 ml Output Total 100 ml Balance 400 ml 495 ml medications Current Medications Medications Dose Ordered Sig/Nadia Route Start Time Stop Time Status Last Admin Dose Admin Digoxin 0.125 mg DAILY PO 10/06/24 10:00 10/14/24 10:17 0.125 MG Aspirin 81 mg DAILY PO 10/06/24 10:00 10/14/24 10:16 81 MG Acetaminophen/ Hydrocodone Bitart 1 tab Q4HP PRN PO 10/05/24 20:45 10/13/24 12:44 1 TAB Ondansetron HCl 4 mg Q4HP PRN IV 10/05/24 20:45 10/14/24 09:45 4 MG Docusate Sodium 100 mg BIDPRN PRN PO 10/05/24 20:45 10/07/24 14:18 100 MG Nitroglycerin 0.4 mg Q5MINP PRN SL 10/05/24 22:30 Morphine Sulfate 2 mg Q30M PRN IV 10/05/24 22:30 Metoprolol Succinate 25 mg DAILY PO 10/07/24 10:00 10/12/24 09:23 25 MG Amiodarone HCl 200 mg Q12HR PO 10/07/24 15:00 10/13/24 21:16 200 MG Vancomycin HCl 250 ml @ 200 mls/hr Q12H IV 10/08/24 14:00 UNV Apixaban 5 mg BIDPC PO 10/10/24 19:00 10/14/24 10:17 5 MG Furosemide 60 mg BIDD PO 10/12/24 18:00 10/12/24 17:36 60 MG Midodrine 10 mg TID@0600,1200,1800 PO 10/13/24 12:00 10/14/24 11:47 10 MG Dopamine HCl/ Dextrose 250 ml @ 9.503 mls/ hr Q24H IV 10/14/24 07:00 10/14/24 08:30 9.503 MLS/HR Examination: GENERAL:Abnormal, CVS:Abnormal, SKIN:Abnormal laboratory and microbiology Laboratory Tests 10/14/24 05:24 10/09/24 04:39 Test 10/14/24 05:24 Range/Units Serum Glucose 166 H 74-106 mg/dL Microbiology Date/Time Source Procedure Growth Status 10/07/24 14:06 Pleural Fluid Gram Stain - Final Complete 10/07/24 14:06 Pleural Fluid Body Fluid Culture - Final Complete 10/06/24 12:31 Nose MRSA Screen - Final Complete 10/05/24 19:19 Blood Blood Culture - Final NO GROWTH AFTER 5 DAYS OF INCUBATION. Complete Problem List/Assessment/Plan Problem List/Assessment/Plan 64 year old male w/ no previous medical followup admitted to hospital with sob diagnosed w/ new onset CHF EF 15% and transferred to ICU for Afib RVR Acute kidney injury due to hypotension ckd cr 1.1 on admission severe systolic HF EF 15%, large pleural effusions s/p thoracentesis pericardial effusion afib RVR patient did not tolerate entresto due to hypotension, now on midodrine and dopamine today lasix IV, keep > 65 has low SBP due to poor cardiac function rate control metoprolol, amio, cardiology eval, fluid restriction US kidney left kidney not visualized, R kidney 12cm rec repeat US cardiology renal function iniatally improved with daily negative fluid balance but he remained severe edematous now function is worsening and has poor BP. dopamine started to augment diuresis. Explained to family at bedside worsening renal function may require temporary dialysis treatment dean was in place on tuesday but removed per protocol, bladder scan thus far does not show PVR, rec monitor closely guarded prognosis Plan discussed with: Patient, Spouse My Orders My Orders Orders - HUONG SHEPPARD MD Procedure Category Date Status Time Dopamine 1600mcg/Ml PHA 10/14/24 In Process [id number] 07:00 Furosemide Injection PHA 10/14/24 Verified (Lasix Injection) 15:15 Dietary Evaluation Review Comments: 1. Refer to CDE on DC for weight management 2. Continue current plan of care Expected Outcomes/Goals: To meet >75% estimated needs Fu 3-5 days HUONG SHEPPARD MD Oct 14, 2024 15:28
[2024-10-14] MEDS: FUROSEMIDE 100 MG/10ML VIAL IV SCH (16:00)
[2024-10-14] MEDS: FUROSEMIDE 100 MG/10ML VIAL IV ONE (16:45)
--- NOTE | 2024-10-14 17:51 | DVHPN2 ---
Progress Note - Dictate Date Seen: Oct 14, 2024 Medical Necessity Reason Pt with a Central, PICC or Fol: Yes The following are medically ne: Dean Catheter Reason for dean catheter: Strict I&O Subjective Patient was seen and evaluated in follow up. Patient is on 3 LPM NC with humidifier. Patient is complaining of generalized pain. BUN 62, [employer] 2.57. Telemetry reviewed. vital signs Vital Sign Date Time Temp Pulse Resp B/P (MAP) Pulse Ox O2 Delivery O2 Flow Rate FiO2 10/14/24 13:25 98.0 57 17 97/70 (79) 98 98.0 10/14/24 08:00 Nasal Cannula* 3 32 Total Intake and Output 10/13/24 10/13/24 10/14/24 15:00 23:00 07:00 Intake Total 400 ml 595 ml Output Total 100 ml Balance 400 ml 495 ml medications Current Medications Medications Dose Ordered Sig/Nadia Route Start Time Stop Time Status Last Admin Dose Admin Digoxin 0.125 mg DAILY PO 10/06/24 10:00 10/14/24 10:17 0.125 MG Aspirin 81 mg DAILY PO 10/06/24 10:00 10/14/24 10:16 81 MG Acetaminophen/ Hydrocodone Bitart 1 tab Q4HP PRN PO 10/05/24 20:45 10/13/24 12:44 1 TAB Ondansetron HCl 4 mg Q4HP PRN IV 10/05/24 20:45 10/14/24 09:45 4 MG Docusate Sodium 100 mg BIDPRN PRN PO 10/05/24 20:45 10/07/24 14:18 100 MG Nitroglycerin 0.4 mg Q5MINP PRN SL 10/05/24 22:30 Morphine Sulfate 2 mg Q30M PRN IV 10/05/24 22:30 Metoprolol Succinate 25 mg DAILY PO 10/07/24 10:00 10/12/24 09:23 25 MG Amiodarone HCl 200 mg Q12HR PO 10/07/24 15:00 10/13/24 21:16 200 MG Vancomycin HCl 250 ml @ 200 mls/hr Q12H IV 10/08/24 14:00 UNV Apixaban 5 mg BIDPC PO 10/10/24 19:00 10/14/24 10:17 5 MG Furosemide 60 mg BIDD PO 10/12/24 18:00 10/12/24 17:36 60 MG Midodrine 10 mg TID@0600,1200,1800 PO 10/13/24 12:00 10/14/24 11:47 10 MG Dopamine HCl/ Dextrose 250 ml @ 9.503 mls/ hr Q24H IV 10/14/24 07:00 10/14/24 08:30 9.503 MLS/HR objective GENERAL: Alert and oriented x 3. No acute distress. Morbidly obese. EYES: PERRL, EOMI. Anicteric. HENT: Moist mucous membranes. LUNGS: Diminished breath sounds. CARDIOVASCULAR: Irregular rate and rhythm. ABDOMEN: Soft, nontender and nondistended. EXTREMITIES: +3 pitting edema. NEUROLOGIC: No focal neurological deficits. SKIN: Warm, dry. laboratory and microbiology Laboratory Tests 10/14/24 05:24 10/09/24 04:39 Test 10/14/24 05:24 Range/Units Serum Glucose 166 H 74-106 mg/dL Problem List Atrial fibrillation with rapid ventricular response, newly diagnosed. Rule out structural heart disease. Left pleural effusion. Sepsis. Hyperkalemia. Acute kidney injury. Transaminitis. Prediabetes. History of alcoholism. Morbidly obese. Assessment/Plan Continued all current supportive medical care. Morphine and [place] for pain management. Amiodarone. Aspirin, Metoprolol. Digoxin. Entresto. Eliquis. DVT prophylactics. Diuretics with Lasix. Additional plan as per the hospital course. Dietary Evaluation Review Comments: 1. Refer to CDE on DC for weight management 2. Continue current plan of care Expected Outcomes/Goals: To meet >75% estimated needs Fu 3-5 days Plan discussed with: Patient XIOMY JERONIMO MD Oct 14, 2024 13:58
[2024-10-15] VITALS (8 sets, daily range): BP systolic 101–125; BP diastolic 69–82; PULSE 58–120; RESP 16–20; TEMP 97.1–97.9; O2SAT 94–98
[2024-10-15 12:13] LABS: Potassium 4.8 mmol/L (3.5-5.1)
[2024-10-15 12:14] LABS: Anion Gap 13 (5-15); Calcium 9.9 mg/dL (8.7-10.4); Carbon Dioxide 26 mmol/L (20-31)
[2024-10-15 12:19] LABS: BUN/Creatinine Ratio 24.3 (10.0-20.0); Blood Urea Nitrogen 59 mg/dL (9-23); Chloride 93 mmol/L (98-107); Glucose 159 mg/dL (74-106); Sodium 132 mmol/L (136-145)
[2024-10-15] MEDS: ACETAMINOPHEN 325 MG TAB PO PRN (17:01)
--- NOTE | 2024-10-15 17:50 | DVHPN2 ---
Subjective No new complaints Reviewed: Care Plan Changes from previous H/P or p: Changes Eyes: No Pain, No Vision change, No Conjunctivae inflammation, No Eyelid inflammation, No Other, No Redness ENT: No Ear pain, No Ear discharge, No Nose pain, No Nose discharge, No Nose congestion, No Mouth pain, No Mouth swelling, No Throat pain, No Throat swelling, No Other Cardiovascular: No Chest Pain; Palpitations; No Orthopnea, No Paroxysmal Noc. Dyspnea, No Edema, No Lt Headedness, No Other Respiratory: No Cough, No Dry; Shortness of breath; No SOB with excertion, No Wheezing, No Hemoptysis, No Pleuritic Pain, No Sputum, No Other Gastrointestinal: No Nausea, No Vomiting, No Abdominal Pain, No Diarrhea, No Constipation, No Melena, No Hematochezia, No Other Genitourinary: No Dysuria, No Frequency, No Incontinence, No Hematuria, No Retention, No Other Musculoskeletal: No other, No neck pain, No shoulder pain, No arm pain, No back pain, No hand pain, No leg pain, No foot pain Skin: No Rash, No Lesions, No Jaundice, No Bruising, No Other Objective Vitals Vital Signs Date Time Temp Pulse Resp B/P (MAP) Pulse Ox O2 Delivery O2 Flow Rate FiO2 10/15/24 17:40 97.9 96 16 101/69 (80) 98 97.9 10/15/24 08:00 Nasal Cannula* 3 32 Intake/Output Intake and Output 10/15/24 06:59 Intake Total 1294 ml Balance 1294 ml Intake Oral 1200 ml IV Total 94 ml # Voids 11 # Bowel Movements 1 General Appearance: Alert, Oriented X3, mild distress Lungs: Other (Bilateral rhonchi) Cardiovascular: Regular rate, Normal S1, Normal S2, No murmurs Abdomen: Normal bowel sounds, Soft, No tenderness Extremities: Other (2+ edema B) Medications Current Medications Medications Dose Ordered Sig/Nadia Route Start Time Stop Time Status Last Admin Dose Admin Digoxin 0.125 mg DAILY PO 10/06/24 10:00 10/15/24 08:45 0.125 MG Aspirin 81 mg DAILY PO 10/06/24 10:00 10/15/24 08:44 81 MG Ondansetron HCl 4 mg Q4HP PRN IV 10/05/24 20:45 10/14/24 09:45 4 MG Docusate Sodium 100 mg BIDPRN PRN PO 10/05/24 20:45 10/07/24 14:18 100 MG Nitroglycerin 0.4 mg Q5MINP PRN SL 10/05/24 22:30 Metoprolol Succinate 25 mg DAILY PO 10/07/24 10:00 10/15/24 08:45 25 MG Amiodarone HCl 200 mg Q12HR PO 10/07/24 15:00 10/15/24 08:45 200 MG Vancomycin HCl 250 ml @ 200 mls/hr Q12H IV 10/08/24 14:00 UNV Apixaban 5 mg BIDPC PO 10/10/24 19:00 10/15/24 17:00 5 MG Midodrine 10 mg TID@0600,1200,1800 PO 10/13/24 12:00 10/15/24 17:00 10 MG Dopamine HCl/ Dextrose 250 ml @ 9.503 mls/ hr Q24H IV 10/14/24 07:00 10/15/24 06:52 9.503 MLS/HR Furosemide 60 mg BIDD IV 10/14/24 16:00 10/15/24 17:01 60 MG Acetaminophen 650 mg Q6HP PRN PO 10/15/24 16:45 10/15/24 17:01 650 MG Laboratory Results Laboratory Tests 10/09/24 04:39 10/15/24 11:35 Chemistry Test 10/15/24 11:35 Calcium Level 9.9 mg/dL (8.7-10.4) Urinalysis Test 10/05/24 18:45 10/06/24 17:49 Urine Color Yellow (Yellow) Urine Clarity Clear (Clear) Urine pH 6.0 (5.0-9.0) Urine Specific [place] 1.031 (1.001-1.035) Urine Protein 2+ (Negative) H Urine Ketones Negative (Negative) Urine Blood Negative /uL (Negative) Urine Nitrite Negative (Negative) Urine Bilirubin Negative (Negative) Urine Urobilinogen 3 mg/dL (Negative) H Urine Leukocyte Esterase Negative /uL (Negative) Urine RBC 2 /hpf (0 - 3) Urine Microscopic WBC 8 /HPF (0-3) H Urine Squamous Epithelial Cells Few /hpf (<5) Urine Bacteria Few /hpf (None Seen) H Urine Hyaline Casts Few /lpf (0 - 2) Urine Mucus Few (None Seen) Urine Glucose Trace mg/dL (Normal) Urine Creatinine 97.15 mg/dL (30.0-125.0) Urine Sodium < 10 mmol/L (40-220) L Urine Total Protein 84.0 mg/dL (1-14) H Microbiology Microbiology Date/Time Source Procedure Growth Status 10/07/24 14:06 Pleural Fluid Gram Stain - Final Complete 10/07/24 14:06 Pleural Fluid Body Fluid Culture - Final Complete 10/06/24 12:31 Nose MRSA Screen - Final Complete 10/05/24 19:19 Blood Blood Culture - Final NO GROWTH AFTER 5 DAYS OF INCUBATION. Complete Assessment/Plan Assessment/Plan Acute CHF exacerbation with systolic dysfunction AFib with RVR , currently rate controlled Left-sided pleural effusion status post thoracentesis Acute kidney injury suspected secondary to vasomotor nephropathy Cardiomyopathy with EF of 15% History of alcoholism Morbid obesity class I Hypotension Pericardial effusion PLAN: No IV fluids Continue Lasix Midodrine Amiodarone O2 Aspirin Digoxin Metoprolo, hold if low BP DC Entresto due to low BP Life vest: Pending Discussed with patient and daughter at the bedside 10/14/2024: Continue the current management Dopamine was started by Nephrology Midodrine Eliquis Aspirin Digoxin Lasix Entresto was discontinued Discussed with the at the bedside 10/15/24: Lovell Continue diuresis Monitor closely Plan discussed with: Patient My Orders Orders - RONY BROWN MD Procedure Category Date Status Time Insert Lovell Catheter RAJAT 10/15/24 In Process 14:19 Acetaminophen Tablet PHA 10/15/24 In Process (Tylenol Tablet) 16:45 Date of Service: Oct 15, 2024 Billing Provider: RONY BROWN MD Common Visit Codes: [id number] INP/OBS CARE(HIGH) RONY BROWN MD Oct 15, 2024 17:50
--- NOTE | 2024-10-15 19:27 | DVHPN2 ---
Progress Note Date Seen: Oct 15, 2024 Medical Necessity Reason Pt with a Central, PICC or Fol: Yes Reason for dean catheter: Strict I&O Subjective Patient reports: Other (Not urinating a lot) Review of Systems: Deferred Objective vital signs Vital Sign Date Time Temp Pulse Resp B/P (MAP) Pulse Ox O2 Delivery O2 Flow Rate FiO2 10/15/24 17:40 97.9 96 16 101/69 (80) 98 97.9 10/15/24 08:00 Nasal Cannula* 3 32 Total Intake and Output 10/14/24 10/14/24 10/15/24 15:00 23:00 07:00 Intake Total 894 ml 400 ml Balance 894 ml 400 ml medications Current Medications Medications Dose Ordered Sig/Nadia Route Start Time Stop Time Status Last Admin Dose Admin Digoxin 0.125 mg DAILY PO 10/06/24 10:00 10/15/24 08:45 0.125 MG Aspirin 81 mg DAILY PO 10/06/24 10:00 10/15/24 08:44 81 MG Ondansetron HCl 4 mg Q4HP PRN IV 10/05/24 20:45 10/14/24 09:45 4 MG Docusate Sodium 100 mg BIDPRN PRN PO 10/05/24 20:45 10/07/24 14:18 100 MG Nitroglycerin 0.4 mg Q5MINP PRN SL 10/05/24 22:30 Metoprolol Succinate 25 mg DAILY PO 10/07/24 10:00 10/15/24 08:45 25 MG Amiodarone HCl 200 mg Q12HR PO 10/07/24 15:00 10/15/24 08:45 200 MG Vancomycin HCl 250 ml @ 200 mls/hr Q12H IV 10/08/24 14:00 UNV Apixaban 5 mg BIDPC PO 10/10/24 19:00 10/15/24 17:00 5 MG Midodrine 10 mg TID@0600,1200,1800 PO 10/13/24 12:00 10/15/24 17:00 10 MG Dopamine HCl/ Dextrose 250 ml @ 9.503 mls/ hr Q24H IV 10/14/24 07:00 10/15/24 06:52 9.503 MLS/HR Furosemide 60 mg BIDD IV 10/14/24 16:00 10/15/24 17:01 60 MG Acetaminophen 650 mg Q6HP PRN PO 10/15/24 16:45 10/15/24 17:01 650 MG Examination: GENERAL:Normal, LUNGS:Normal, MSK:Abnormal (Positive edema), NEURO:Normal laboratory and microbiology Laboratory Tests 10/15/24 11:35 10/09/24 04:39 Test 10/15/24 11:35 Range/Units Serum Glucose 159 H 74-106 mg/dL Microbiology Date/Time Source Procedure Growth Status 10/07/24 14:06 Pleural Fluid Gram Stain - Final Complete 10/07/24 14:06 Pleural Fluid Body Fluid Culture - Final Complete 10/06/24 12:31 Nose MRSA Screen - Final Complete 10/05/24 19:19 Blood Blood Culture - Final NO GROWTH AFTER 5 DAYS OF INCUBATION. Complete Problem List/Assessment/Plan Problem List/Assessment/Plan Acute kidney injury due to hypotension/cardiorenal etiology ckd cr 1.1 on admission severe systolic HF EF 15%, large pleural effusions s/p thoracentesis pericardial effusion afib RVR Recommendations Continue diuretics Bladder scan today We will follow closely Plan discussed with: Patient My Orders My Orders Orders - DINA FORBES MD Procedure Category Date Status Time Communication Order ORDERS 10/15/24 Transmitted 11:19 Dietary Evaluation Review Comments: 1. Refer to CDE on DC for weight management 2. Continue current plan of care Expected Outcomes/Goals: To meet >75% estimated needs Fu 3-5 days DINA FORBES MD Oct 15, 2024 19:27
--- NOTE | 2024-10-15 23:06 | DVHPN2 ---
Progress Note - Dictate Date Seen: Oct 15, 2024 Medical Necessity Reason Pt with a Central, PICC or Fol: Yes Reason for dean catheter: Strict I&O Subjective Patient was seen and evaluated in follow up. No overnight events. Patient is on 3 LPM NC. Patient has decreased urine output. BUN 59, Card Hand 2.43. Telemetry reviewed. vital signs Vital Sign Date Time Temp Pulse Resp B/P (MAP) Pulse Ox O2 Delivery O2 Flow Rate FiO2 10/15/24 21:00 97.7 106 20 120/76 (91) 94 97.7 10/15/24 08:00 Nasal Cannula* 3 32 Total Intake and Output 10/14/24 10/14/24 10/15/24 15:00 23:00 07:00 Intake Total 894 ml 400 ml Balance 894 ml 400 ml medications Current Medications Medications Dose Ordered Sig/Nadia Route Start Time Stop Time Status Last Admin Dose Admin Digoxin 0.125 mg DAILY PO 10/06/24 10:00 10/15/24 08:45 0.125 MG Aspirin 81 mg DAILY PO 10/06/24 10:00 10/15/24 08:44 81 MG Ondansetron HCl 4 mg Q4HP PRN IV 10/05/24 20:45 10/14/24 09:45 4 MG Docusate Sodium 100 mg BIDPRN PRN PO 10/05/24 20:45 10/07/24 14:18 100 MG Nitroglycerin 0.4 mg Q5MINP PRN SL 10/05/24 22:30 Metoprolol Succinate 25 mg DAILY PO 10/07/24 10:00 10/15/24 08:45 25 MG Amiodarone HCl 200 mg Q12HR PO 10/07/24 15:00 10/15/24 22:19 200 MG Vancomycin HCl 250 ml @ 200 mls/hr Q12H IV 10/08/24 14:00 UNV Apixaban 5 mg BIDPC PO 10/10/24 19:00 10/15/24 17:00 5 MG Midodrine 10 mg TID@0600,1200,1800 PO 10/13/24 12:00 10/15/24 17:00 10 MG Dopamine HCl/ Dextrose 250 ml @ 9.503 mls/ hr Q24H IV 10/14/24 07:00 10/15/24 06:52 9.503 MLS/HR Furosemide 60 mg BIDD IV 10/14/24 16:00 10/15/24 17:01 60 MG Acetaminophen 650 mg Q6HP PRN PO 10/15/24 16:45 10/15/24 17:01 650 MG objective GENERAL: Alert and oriented x 3. No acute distress. Morbidly obese. EYES: PERRL, EOMI. Anicteric. HENT: Moist mucous membranes. LUNGS: Diminished breath sounds. CARDIOVASCULAR: Irregular rate and rhythm. ABDOMEN: Soft, nontender and nondistended. EXTREMITIES: +3 pitting edema. NEUROLOGIC: No focal neurological deficits. SKIN: Warm, dry. laboratory and microbiology Laboratory Tests 10/15/24 11:35 10/09/24 04:39 Test 10/15/24 11:35 Range/Units Serum Glucose 159 H 74-106 mg/dL Problem List Atrial fibrillation with rapid ventricular response, newly diagnosed. Rule out structural heart disease. Left pleural effusion. Sepsis. Hyperkalemia. Acute kidney injury. Transaminitis. Prediabetes. History of alcoholism. Morbidly obese. Assessment/Plan Continued all current supportive medical care. Morphine and [place] for pain management. Amiodarone. Aspirin, Metoprolol. Digoxin. Entresto. Eliquis. DVT prophylactics. Diuretics with Lasix. Additional plan as per the hospital course. Dietary Evaluation Review Comments: 1. Refer to CDE on DC for weight management 2. Continue current plan of care Expected Outcomes/Goals: To meet >75% estimated needs Fu 3-5 days Plan discussed with: Patient XIOMY JERONIMO MD Oct 15, 2024 23:06
[2024-10-16] VITALS (8 sets, daily range): BP systolic 93–108; BP diastolic 70–85; PULSE 63–98; RESP 16–20; TEMP 97.3–97.8; O2SAT 93–97
[2024-10-16 07:25] LABS: Potassium 3.7 mmol/L (3.5-5.1)
[2024-10-16 07:26] LABS: Anion Gap 12 (5-15); Calcium 9.2 mg/dL (8.7-10.4); Carbon Dioxide 28 mmol/L (20-31)
[2024-10-16 07:30] LABS: Chloride 91 mmol/L (98-107); Sodium 131 mmol/L (136-145)
[2024-10-16 07:31] LABS: BUN/Creatinine Ratio 28.3 (10.0-20.0)
[2024-10-16 07:34] LABS: Blood Urea Nitrogen 66 mg/dL (9-23); Glucose 153 mg/dL (74-106); Magnesium 2.9 mg/dL (1.6-2.6)
--- NOTE | 2024-10-16 10:12 | DVHPN2 ---
Subjective No new complaints Edema is still significant On 3 liters O2 Reviewed: Care Plan Changes from previous H/P or p: Changes Eyes: No Pain, No Vision change, No Conjunctivae inflammation, No Eyelid inflammation, No Other, No Redness ENT: No Ear pain, No Ear discharge, No Nose pain, No Nose discharge, No Nose congestion, No Mouth pain, No Mouth swelling, No Throat pain, No Throat swelling, No Other Cardiovascular: No Chest Pain; Palpitations; No Orthopnea, No Paroxysmal Noc. Dyspnea, No Edema, No Lt Headedness, No Other Respiratory: No Cough, No Dry; Shortness of breath; No SOB with excertion, No Wheezing, No Hemoptysis, No Pleuritic Pain, No Sputum, No Other Gastrointestinal: No Nausea, No Vomiting, No Abdominal Pain, No Diarrhea, No Constipation, No Melena, No Hematochezia, No Other Genitourinary: No Dysuria, No Frequency, No Incontinence, No Hematuria, No Retention, No Other Musculoskeletal: No other, No neck pain, No shoulder pain, No arm pain, No back pain, No hand pain, No leg pain, No foot pain Skin: No Rash, No Lesions, No Jaundice, No Bruising, No Other Objective Vitals Vital Signs Date Time Temp Pulse Resp B/P (MAP) Pulse Ox O2 Delivery O2 Flow Rate FiO2 10/16/24 09:40 87 105/85 10/16/24 09:28 97.3 16 94 97.3 10/16/24 08:00 Nasal Cannula* 3 32 Intake/Output Intake and Output 10/16/24 07:00 Intake Total 1039 ml Output Total 1325 ml Balance -286 ml Intake Oral 925 ml IV Total 114 ml Output Urine Total 1325 ml General Appearance: Alert, Oriented X3, mild distress Lungs: Other (Bilateral rhonchi) Cardiovascular: Regular rate, Normal S1, Normal S2, No murmurs Abdomen: Normal bowel sounds, Soft, No tenderness Extremities: Other (2+ edema B) Medications Current Medications Medications Dose Ordered Sig/Nadia Route Start Time Stop Time Status Last Admin Dose Admin Digoxin 0.125 mg DAILY PO 10/06/24 10:00 10/16/24 09:39 0.125 MG Aspirin 81 mg DAILY PO 10/06/24 10:00 10/16/24 09:39 81 MG Ondansetron HCl 4 mg Q4HP PRN IV 10/05/24 20:45 10/14/24 09:45 4 MG Docusate Sodium 100 mg BIDPRN PRN PO 10/05/24 20:45 10/07/24 14:18 100 MG Nitroglycerin 0.4 mg Q5MINP PRN SL 10/05/24 22:30 Metoprolol Succinate 25 mg DAILY PO 10/07/24 10:00 10/16/24 09:40 25 MG Amiodarone HCl 200 mg Q12HR PO 10/07/24 15:00 10/16/24 09:39 200 MG Vancomycin HCl 250 ml @ 200 mls/hr Q12H IV 10/08/24 14:00 UNV Apixaban 5 mg BIDPC PO 10/10/24 19:00 10/16/24 09:38 5 MG Midodrine 10 mg TID@0600,1200,1800 PO 10/13/24 12:00 10/16/24 05:41 10 MG Dopamine HCl/ Dextrose 250 ml @ 9.503 mls/ hr Q24H IV 10/14/24 07:00 10/16/24 07:35 9.503 MLS/HR Furosemide 60 mg BIDD IV 10/14/24 16:00 10/16/24 05:41 60 MG Acetaminophen 650 mg Q6HP PRN PO 10/15/24 16:45 10/16/24 05:47 650 MG Laboratory Results Laboratory Tests 10/09/24 04:39 10/16/24 06:12 Chemistry Test 10/15/24 11:35 10/16/24 06:12 Calcium Level 9.9 mg/dL (8.7-10.4) 9.2 mg/dL (8.7-10.4) Magnesium Level 2.9 mg/dL (1.6-2.6) H Urinalysis Test 10/05/24 18:45 10/06/24 17:49 Urine Color Yellow (Yellow) Urine Clarity Clear (Clear) Urine pH 6.0 (5.0-9.0) Urine Specific [place] 1.031 (1.001-1.035) Urine Protein 2+ (Negative) H Urine Ketones Negative (Negative) Urine Blood Negative /uL (Negative) Urine Nitrite Negative (Negative) Urine Bilirubin Negative (Negative) Urine Urobilinogen 3 mg/dL (Negative) H Urine Leukocyte Esterase Negative /uL (Negative) Urine RBC 2 /hpf (0 - 3) Urine Microscopic WBC 8 /HPF (0-3) H Urine Squamous Epithelial Cells Few /hpf (<5) Urine Bacteria Few /hpf (None Seen) H Urine Hyaline Casts Few /lpf (0 - 2) Urine Mucus Few (None Seen) Urine Glucose Trace mg/dL (Normal) Urine Creatinine 97.15 mg/dL (30.0-125.0) Urine Sodium < 10 mmol/L (40-220) L Urine Total Protein 84.0 mg/dL (1-14) H Microbiology Microbiology Date/Time Source Procedure Growth Status 10/07/24 14:06 Pleural Fluid Gram Stain - Final Complete 10/07/24 14:06 Pleural Fluid Body Fluid Culture - Final Complete 10/06/24 12:31 Nose MRSA Screen - Final Complete 10/05/24 19:19 Blood Blood Culture - Final NO GROWTH AFTER 5 DAYS OF INCUBATION. Complete Assessment/Plan Assessment/Plan Acute CHF exacerbation with systolic dysfunction AFib with RVR , currently rate controlled Left-sided pleural effusion status post thoracentesis Acute kidney injury suspected secondary to vasomotor nephropathy Cardiomyopathy with EF of 15% History of alcoholism Morbid obesity class I Hypotension Pericardial effusion PLAN: No IV fluids Continue Lasix Midodrine Amiodarone O2 Aspirin Digoxin Metoprolo, hold if low BP DC Entresto due to low BP Life vest: Pending Discussed with patient and daughter at the bedside 10/14/2024: Continue the current management Dopamine was started by Nephrology Midodrine Eliquis Aspirin Digoxin Lasix Entresto was discontinued Discussed with the at the bedside 10/15/24: Lovell Continue diuresis Monitor closely 10/16/24: Continue diuresis Dopamine Amiodarone Midodrine Increase Lasix DC Metoprolol Plan discussed with: Patient My Orders Orders - RONY BROWN MD Procedure Category Date Status Time Insert [place] Catheter RAJAT 10/15/24 In Process 14:19 Acetaminophen Tablet PHA 10/15/24 In Process (Tylenol Tablet) 16:45 Date of Service: Oct 16, 2024 Billing Provider: RONY BROWN MD Common Visit Codes: [id number] INP/OBS CARE(HIGH) RONY BROWN MD Oct 16, 2024 10:12
[2024-10-16] MEDS: FUROSEMIDE 100 MG/10ML VIAL IV SCH (13:49)
--- NOTE | 2024-10-16 19:07 | DVHPN2 ---
Progress Note Date Seen: Oct 16, 2024 Medical Necessity Reason Pt with a Central, PICC or Fol: Yes The following are medically ne: Dean Catheter Reason for dean catheter: Strict I&O Subjective Patient reports: No new complaints Review of Systems: Deferred Objective vital signs Vital Sign Date Time Temp Pulse Resp B/P (MAP) Pulse Ox O2 Delivery O2 Flow Rate FiO2 10/16/24 17:00 97.3 89 17 93/75 (81) 94 97.3 10/16/24 08:00 Nasal Cannula* 3 32 Total Intake and Output 10/15/24 10/15/24 10/16/24 15:00 23:00 07:00 Intake Total 639 ml 400 ml Output Total 450 ml 875 ml Balance 189 ml -475 ml medications Current Medications Medications Dose Ordered Sig/Nadia Route Start Time Stop Time Status Last Admin Dose Admin Digoxin 0.125 mg DAILY PO 10/06/24 10:00 10/16/24 09:39 0.125 MG Aspirin 81 mg DAILY PO 10/06/24 10:00 10/16/24 09:39 81 MG Ondansetron HCl 4 mg Q4HP PRN IV 10/05/24 20:45 10/14/24 09:45 4 MG Docusate Sodium 100 mg BIDPRN PRN PO 10/05/24 20:45 10/07/24 14:18 100 MG Nitroglycerin 0.4 mg Q5MINP PRN SL 10/05/24 22:30 Amiodarone HCl 200 mg Q12HR PO 10/07/24 15:00 10/16/24 09:39 200 MG Vancomycin HCl 250 ml @ 200 mls/hr Q12H IV 10/08/24 14:00 UNV Apixaban 5 mg BIDPC PO 10/10/24 19:00 10/16/24 18:00 5 MG Midodrine 10 mg TID@0600,1200,1800 PO 10/13/24 12:00 10/16/24 18:00 10 MG Dopamine HCl/ Dextrose 250 ml @ 9.503 mls/ hr Q24H IV 10/14/24 07:00 10/16/24 07:35 9.503 MLS/HR Acetaminophen 650 mg Q6HP PRN PO 10/15/24 16:45 10/16/24 17:32 650 MG Furosemide 80 mg Q8H IV 10/16/24 14:00 10/16/24 13:49 80 MG Metolazone 5 mg DAILY PO 10/17/24 10:00 Examination: GENERAL:Normal, HEENT:Normal, NECK:Normal, LUNGS:Normal, CVS:Normal, ABDOMEN:Normal, MSK:Abnormal (edema), SKIN:Abnormal, NEURO:Normal, :Normal laboratory and microbiology Laboratory Tests 10/16/24 06:12 10/09/24 04:39 Test 10/16/24 06:12 Range/Units Serum Glucose 153 H 74-106 mg/dL Microbiology Date/Time Source Procedure Growth Status 10/07/24 14:06 Pleural Fluid Gram Stain - Final Complete 10/07/24 14:06 Pleural Fluid Body Fluid Culture - Final Complete 10/06/24 12:31 Nose MRSA Screen - Final Complete 10/05/24 19:19 Blood Blood Culture - Final NO GROWTH AFTER 5 DAYS OF INCUBATION. Complete Problem List/Assessment/Plan Problem List/Assessment/Plan Acute kidney injury due to hypotension/cardiorenal etiology ckd cr 1.1 on admission severe systolic HF EF 15%, large pleural effusions s/p thoracentesis pericardial effusion afib RVR Recommendations Continue diuretics-add metolozone on lasix tid We will follow closely Plan discussed with: Patient, Other My Orders My Orders Orders - DINA FORBES MD Procedure Category Date Status Time Metolazone (Zaroxolyn) PHA 10/17/24 In Process 10:00 Dietary Evaluation Review Comments: 1. Refer to CDE on DC for weight management 2. Continue current plan of care Expected Outcomes/Goals: To meet >75% estimated needs Fu 3-5 days DINA FORBES MD Oct 16, 2024 19:07
[2024-10-16] MEDS: POTASSIUM EFFERVESENT TAB 25 MEQ PO ONE (21:58)
[2024-10-17] VITALS (8 sets, daily range): BP systolic 104–146; BP diastolic 75–93; PULSE 52–108; RESP 17–18; TEMP 97.5–98.2; O2SAT 92–99
--- NOTE | 2024-10-17 00:01 | DVHPN2 ---
Progress Note - Dictate Date Seen: Oct 16, 2024 Medical Necessity Reason Pt with a Central, PICC or Fol: Yes The following are medically ne: Dean Catheter Reason for dean catheter: Strict I&O Subjective Patient was seen and evaluated in follow up. Patient is on 3 LPM NC. Patient remains with significant edema. Patient diuresing with Lasix. BUN 66, Automatic Hemmer 2.33. Telemetry reviewed. vital signs Vital Sign Date Time Temp Pulse Resp B/P (MAP) Pulse Ox O2 Delivery O2 Flow Rate FiO2 10/16/24 22:02 115/83 10/16/24 21:00 97.8 94 19 94 97.8 10/16/24 08:00 Nasal Cannula* 3 32 Total Intake and Output 10/15/24 10/15/24 10/16/24 15:00 23:00 07:00 Intake Total 639 ml 400 ml Output Total 450 ml 875 ml Balance 189 ml -475 ml medications Current Medications Medications Dose Ordered Sig/Nadia Route Start Time Stop Time Status Last Admin Dose Admin Digoxin 0.125 mg DAILY PO 10/06/24 10:00 10/16/24 09:39 0.125 MG Aspirin 81 mg DAILY PO 10/06/24 10:00 10/16/24 09:39 81 MG Ondansetron HCl 4 mg Q4HP PRN IV 10/05/24 20:45 10/14/24 09:45 4 MG Docusate Sodium 100 mg BIDPRN PRN PO 10/05/24 20:45 10/07/24 14:18 100 MG Nitroglycerin 0.4 mg Q5MINP PRN SL 10/05/24 22:30 Amiodarone HCl 200 mg Q12HR PO 10/07/24 15:00 10/16/24 22:00 200 MG Vancomycin HCl 250 ml @ 200 mls/hr Q12H IV 10/08/24 14:00 UNV Apixaban 5 mg BIDPC PO 10/10/24 19:00 10/16/24 18:00 5 MG Midodrine 10 mg TID@0600,1200,1800 PO 10/13/24 12:00 10/16/24 18:00 10 MG Dopamine HCl/ Dextrose 250 ml @ 9.503 mls/ hr Q24H IV 10/14/24 07:00 10/16/24 07:35 9.503 MLS/HR Acetaminophen 650 mg Q6HP PRN PO 10/15/24 16:45 10/16/24 17:32 650 MG Furosemide 80 mg Q8H IV 10/16/24 14:00 10/16/24 22:02 80 MG Metolazone 5 mg DAILY PO 10/17/24 10:00 Potassium Bicarbonate 50 meq DAILY PO 10/17/24 10:00 objective GENERAL: Alert and oriented x 3. No acute distress. Morbidly obese. EYES: PERRL, EOMI. Anicteric. HENT: Moist mucous membranes. LUNGS: Diminished breath sounds. CARDIOVASCULAR: Irregular rate and rhythm. ABDOMEN: Soft, nontender and nondistended. EXTREMITIES: +3 pitting edema. NEUROLOGIC: No focal neurological deficits. SKIN: Warm, dry. laboratory and microbiology Laboratory Tests 10/16/24 06:12 10/09/24 04:39 Test 10/16/24 06:12 Range/Units Serum Glucose 153 H 74-106 mg/dL Problem List Atrial fibrillation with rapid ventricular response, newly diagnosed. Left pleural effusion. Sepsis. Hyperkalemia. Acute kidney injury. Transaminitis. Prediabetes. History of alcoholism. Morbidly obese. Severe systolic HF EF 15%, large pleural effusions. Pericardial effusion. Assessment/Plan Continued all current supportive medical care. Morphine and [place] for pain management. Amiodarone. Aspirin, Metoprolol. Digoxin. Entresto. Eliquis. DVT prophylactics. Diuretics with Lasix. Additional plan as per the hospital course. Dietary Evaluation Review Comments: 1. Refer to CDE on DC for weight management 2. Continue current plan of care Expected Outcomes/Goals: To meet >75% estimated needs Fu 3-5 days Plan discussed with: Patient XIOMY JERONIMO MD Oct 17, 2024 00:01
[2024-10-17 07:05] LABS: Potassium 3.6 mmol/L (3.5-5.1)
[2024-10-17 07:06] LABS: Anion Gap 11 (5-15); Carbon Dioxide 29 mmol/L (20-31)
[2024-10-17 07:07] LABS: Calcium 9.0 mg/dL (8.7-10.4)
[2024-10-17 07:12] LABS: BUN/Creatinine Ratio 28.8 (10.0-20.0)
[2024-10-17 07:14] LABS: Blood Urea Nitrogen 70 mg/dL (9-23); Chloride 89 mmol/L (98-107); Glucose 157 mg/dL (74-106); Magnesium 2.8 mg/dL (1.6-2.6); Sodium 129 mmol/L (136-145)
[2024-10-17] MEDS: POTASSIUM EFFERVESENT TAB 25 MEQ PO SCH (10:22)
--- NOTE | 2024-10-17 10:30 | DVHPN2 ---
Subjective No new complaints He is diuresing better with the increased dose of the Lasix He is still has significant edema He is on 3 L nasal cannula Reviewed: Care Plan Changes from previous H/P or p: Changes Eyes: No Pain, No Vision change, No Conjunctivae inflammation, No Eyelid inflammation, No Other, No Redness ENT: No Ear pain, No Ear discharge, No Nose pain, No Nose discharge, No Nose congestion, No Mouth pain, No Mouth swelling, No Throat pain, No Throat swelling, No Other Cardiovascular: No Chest Pain; Palpitations; No Orthopnea, No Paroxysmal Noc. Dyspnea, No Edema, No Lt Headedness, No Other Respiratory: No Cough, No Dry; Shortness of breath; No SOB with excertion, No Wheezing, No Hemoptysis, No Pleuritic Pain, No Sputum, No Other Gastrointestinal: No Nausea, No Vomiting, No Abdominal Pain, No Diarrhea, No Constipation, No Melena, No Hematochezia, No Other Genitourinary: No Dysuria, No Frequency, No Incontinence, No Hematuria, No Retention, No Other Musculoskeletal: No other, No neck pain, No shoulder pain, No arm pain, No back pain, No hand pain, No leg pain, No foot pain Skin: No Rash, No Lesions, No Jaundice, No Bruising, No Other Objective Vitals Vital Signs Date Time Temp Pulse Resp B/P (MAP) Pulse Ox O2 Delivery O2 Flow Rate FiO2 10/17/24 10:00 93/68 10/17/24 10:00 50 10/17/24 09:30 97.5 18 93 97.5 10/16/24 20:00 Nasal Cannula* 3 32 Intake/Output Intake and Output 10/17/24 07:00 Intake Total 1609.3 ml Output Total 2050 ml Balance -440.7 ml Intake Oral 1500 ml IV Total 109.3 ml Output Urine Total 2050 ml # Bowel Movements 1 General Appearance: Alert, Oriented X3, mild distress Lungs: Other (Bilateral rhonchi) Cardiovascular: Regular rate, Normal S1, Normal S2, No murmurs Abdomen: Normal bowel sounds, Soft, No tenderness Extremities: Other (2+ edema B) Medications Current Medications Medications Dose Ordered Sig/Nadia Route Start Time Stop Time Status Last Admin Dose Admin Digoxin 0.125 mg DAILY PO 10/06/24 10:00 10/16/24 09:39 0.125 MG Aspirin 81 mg DAILY PO 10/06/24 10:00 10/17/24 10:24 81 MG Ondansetron HCl 4 mg Q4HP PRN IV 10/05/24 20:45 10/14/24 09:45 4 MG Docusate Sodium 100 mg BIDPRN PRN PO 10/05/24 20:45 10/07/24 14:18 100 MG Nitroglycerin 0.4 mg Q5MINP PRN SL 10/05/24 22:30 Amiodarone HCl 200 mg Q12HR PO 10/07/24 15:00 10/17/24 10:22 200 MG Vancomycin HCl 250 ml @ 200 mls/hr Q12H IV 10/08/24 14:00 UNV Apixaban 5 mg BIDPC PO 10/10/24 19:00 10/17/24 10:24 5 MG Midodrine 10 mg TID@0600,1200,1800 PO 10/13/24 12:00 10/17/24 05:58 10 MG Dopamine HCl/ Dextrose 250 ml @ 9.503 mls/ hr Q24H IV 10/14/24 07:00 10/17/24 06:49 9.503 MLS/HR Acetaminophen 650 mg Q6HP PRN PO 10/15/24 16:45 10/17/24 04:37 650 MG Furosemide 80 mg Q8H IV 10/16/24 14:00 10/17/24 05:56 80 MG Metolazone 5 mg DAILY PO 10/17/24 10:00 Potassium Bicarbonate 50 meq DAILY PO 10/17/24 10:00 10/17/24 10:22 50 MEQ Laboratory Results Laboratory Tests 10/09/24 04:39 10/17/24 06:15 Chemistry Test 10/17/24 06:15 Calcium Level 9.0 mg/dL (8.7-10.4) Magnesium Level 2.8 mg/dL (1.6-2.6) H Urinalysis Test 10/05/24 18:45 10/06/24 17:49 Urine Color Yellow (Yellow) Urine Clarity Clear (Clear) Urine pH 6.0 (5.0-9.0) Urine Specific [place] 1.031 (1.001-1.035) Urine Protein 2+ (Negative) H Urine Ketones Negative (Negative) Urine Blood Negative /uL (Negative) Urine Nitrite Negative (Negative) Urine Bilirubin Negative (Negative) Urine Urobilinogen 3 mg/dL (Negative) H Urine Leukocyte Esterase Negative /uL (Negative) Urine RBC 2 /hpf (0 - 3) Urine Microscopic WBC 8 /HPF (0-3) H Urine Squamous Epithelial Cells Few /hpf (<5) Urine Bacteria Few /hpf (None Seen) H Urine Hyaline Casts Few /lpf (0 - 2) Urine Mucus Few (None Seen) Urine Glucose Trace mg/dL (Normal) Urine Creatinine 97.15 mg/dL (30.0-125.0) Urine Sodium < 10 mmol/L (40-220) L Urine Total Protein 84.0 mg/dL (1-14) H Microbiology Microbiology Date/Time Source Procedure Growth Status 10/07/24 14:06 Pleural Fluid Gram Stain - Final Complete 10/07/24 14:06 Pleural Fluid Body Fluid Culture - Final Complete 10/06/24 12:31 Nose MRSA Screen - Final Complete 10/05/24 19:19 Blood Blood Culture - Final NO GROWTH AFTER 5 DAYS OF INCUBATION. Complete Assessment/Plan Assessment/Plan Acute CHF exacerbation with systolic dysfunction AFib with RVR , currently rate controlled Left-sided pleural effusion status post thoracentesis Acute kidney injury suspected secondary to vasomotor nephropathy Cardiomyopathy with EF of 15% History of alcoholism Morbid obesity class I Hypotension Pericardial effusion PLAN: No IV fluids Continue Lasix Midodrine Amiodarone O2 Aspirin Digoxin Metoprolo, hold if low BP DC Entresto due to low BP Life vest: Pending Discussed with patient and daughter at the bedside 10/14/2024: Continue the current management Dopamine was started by Nephrology Midodrine Eliquis Aspirin Digoxin Lasix Entresto was discontinued Discussed with the at the bedside 10/15/24: Lovell Continue diuresis Monitor closely 10/16/24: Continue diuresis Dopamine Amiodarone Midodrine Increase Lasix DC Metoprolol 10/17/2024: Continue IV Lasix 80 mg 3 times a day and metolazone 5 mg daily Monitor the patient closely and continue amiodarone and apixaban Dopamine drip Lovell catheter in place Monitor the urine output Monitor closely Plan discussed with: Patient Date of Service: Oct 17, 2024 Billing Provider: RNOY BROWN MD Common Visit Codes: [id number] INP/OBS CARE(HIGH) RONY BROWN MD Oct 17, 2024 10:30
--- NOTE | 2024-10-17 17:37 | DVHPN2 ---
Progress Note Date Seen: Oct 17, 2024 Medical Necessity Reason Pt with a Central, PICC or Fol: Yes The following are medically ne: Dean Catheter Reason for dean catheter: Strict I&O Subjective Patient reports: Other (Complaints of shortness of breath) Review of Systems: HEENT:Normal, CVS:Normal, RESPIRATORY:Abnormal, GI:Normal, :Normal, MSK:Normal, NEURO:Normal Objective vital signs Vital Sign Date Time Temp Pulse Resp B/P (MAP) Pulse Ox O2 Delivery O2 Flow Rate FiO2 10/17/24 16:40 98.2 82 18 146/92 (110) 95 98.2 10/17/24 08:00 Nasal Cannula* 3 32 Total Intake and Output 10/16/24 10/16/24 10/17/24 15:00 23:00 07:00 Intake Total 659.3 ml 950 ml Output Total 1100 ml 950 ml Balance -440.7 ml 0 ml medications Current Medications Medications Dose Ordered Sig/Nadia Route Start Time Stop Time Status Last Admin Dose Admin Digoxin 0.125 mg DAILY PO 10/06/24 10:00 10/16/24 09:39 0.125 MG Aspirin 81 mg DAILY PO 10/06/24 10:00 10/17/24 10:24 81 MG Ondansetron HCl 4 mg Q4HP PRN IV 10/05/24 20:45 10/14/24 09:45 4 MG Docusate Sodium 100 mg BIDPRN PRN PO 10/05/24 20:45 10/07/24 14:18 100 MG Nitroglycerin 0.4 mg Q5MINP PRN SL 10/05/24 22:30 Amiodarone HCl 200 mg Q12HR PO 10/07/24 15:00 10/17/24 10:22 200 MG Vancomycin HCl 250 ml @ 200 mls/hr Q12H IV 10/08/24 14:00 UNV Apixaban 5 mg BIDPC PO 10/10/24 19:00 10/17/24 10:24 5 MG Midodrine 10 mg TID@0600,1200,1800 PO 10/13/24 12:00 10/17/24 12:41 10 MG Dopamine HCl/ Dextrose 250 ml @ 9.503 mls/ hr Q24H IV 10/14/24 07:00 10/17/24 06:49 9.503 MLS/HR Acetaminophen 650 mg Q6HP PRN PO 10/15/24 16:45 10/17/24 14:24 650 MG Furosemide 80 mg Q8H IV 10/16/24 14:00 10/17/24 14:15 80 MG Metolazone 5 mg DAILY PO 10/17/24 10:00 Potassium Bicarbonate 50 meq DAILY PO 10/17/24 10:00 10/17/24 10:22 50 MEQ Examination: GENERAL:Normal, HEENT:Normal, NECK:Normal, LUNGS:Abnormal, CVS:Normal, ABDOMEN:Normal, MSK:Abnormal (Edema), SKIN:Normal, NEURO:Normal, :Normal laboratory and microbiology Laboratory Tests 10/17/24 06:15 10/09/24 04:39 Test 10/17/24 06:15 Range/Units Serum Glucose 157 H 74-106 mg/dL Microbiology Date/Time Source Procedure Growth Status 10/07/24 14:06 Pleural Fluid Gram Stain - Final Complete 10/07/24 14:06 Pleural Fluid Body Fluid Culture - Final Complete 10/06/24 12:31 Nose MRSA Screen - Final Complete 10/05/24 19:19 Blood Blood Culture - Final NO GROWTH AFTER 5 DAYS OF INCUBATION. Complete Problem List/Assessment/Plan Problem List/Assessment/Plan Acute kidney injury due to hypotension/cardiorenal etiology ckd cr 1.1 on admission severe systolic HF EF 15%, large pleural effusions s/p thoracentesis pericardial effusion afib RVR Recommendations Continue diuretics-added metolozone on lasix tid We will follow closely Plan discussed with: Patient My Orders My Orders Orders - DINA FORBES MD Procedure Category Date Status Time Potassium Effervesent PHA 10/17/24 In Process Tab (Klor-Con/Ef) 10:00 Chest Two Views XY 10/17/24 Verified Routine 17:36 Dietary Evaluation Review Comments: 1. Refer to CDE on DC for weight management 2. Continue current plan of care Expected Outcomes/Goals: To meet >75% estimated needs Fu 3-5 days DINA FORBES MD Oct 17, 2024 17:37
--- NOTE | 2024-10-17 18:05 | DVHPN2 ---
Progress Note - Dictate Date Seen: Oct 17, 2024 Medical Necessity Reason Pt with a Central, PICC or Fol: Yes The following are medically ne: Dean Catheter Reason for dean catheter: Strict I&O Subjective Patient was seen and evaluated in follow up. Patient is on 3 LPM NC. Patient still has significant edema. Lasix dosage was increased and is diuresing better. HR is fluctuating, started on Dopamine drip. 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 Telemetry reviewed. vital signs Vital Sign Date Time Temp Pulse Resp B/P (MAP) Pulse Ox O2 Delivery O2 Flow Rate FiO2 10/17/24 14:15 110/74 10/17/24 12:55 98.1 56 18 94 98.1 10/17/24 08:00 Nasal Cannula* 3 32 Total Intake and Output 10/16/24 10/16/24 10/17/24 15:00 23:00 07:00 Intake Total 659.3 ml 950 ml Output Total 1100 ml 950 ml Balance -440.7 ml 0 ml medications Current Medications Medications Dose Ordered Sig/Nadia Route Start Time Stop Time Status Last Admin Dose Admin Digoxin 0.125 mg DAILY PO 10/06/24 10:00 10/16/24 09:39 0.125 MG Aspirin 81 mg DAILY PO 10/06/24 10:00 10/17/24 10:24 81 MG Ondansetron HCl 4 mg Q4HP PRN IV 10/05/24 20:45 10/14/24 09:45 4 MG Docusate Sodium 100 mg BIDPRN PRN PO 10/05/24 20:45 10/07/24 14:18 100 MG Nitroglycerin 0.4 mg Q5MINP PRN SL 10/05/24 22:30 Amiodarone HCl 200 mg Q12HR PO 10/07/24 15:00 10/17/24 10:22 200 MG Vancomycin HCl 250 ml @ 200 mls/hr Q12H IV 10/08/24 14:00 UNV Apixaban 5 mg BIDPC PO 10/10/24 19:00 10/17/24 10:24 5 MG Midodrine 10 mg TID@0600,1200,1800 PO 10/13/24 12:00 10/17/24 12:41 10 MG Dopamine HCl/ Dextrose 250 ml @ 9.503 mls/ hr Q24H IV 10/14/24 07:00 10/17/24 06:49 9.503 MLS/HR Acetaminophen 650 mg Q6HP PRN PO 10/15/24 16:45 10/17/24 14:24 650 MG Furosemide 80 mg Q8H IV 10/16/24 14:00 10/17/24 14:15 80 MG Metolazone 5 mg DAILY PO 10/17/24 10:00 Potassium Bicarbonate 50 meq DAILY PO 10/17/24 10:00 10/17/24 10:22 50 MEQ objective GENERAL: Alert and oriented x 3. No acute distress. Morbidly obese. EYES: PERRL, EOMI. Anicteric. HENT: Moist mucous membranes. LUNGS: Diminished breath sounds. CARDIOVASCULAR: Irregular rate and rhythm. ABDOMEN: Soft, nontender and nondistended. EXTREMITIES: +3 pitting edema. NEUROLOGIC: No focal neurological deficits. SKIN: Warm, dry. laboratory and microbiology Laboratory Tests 10/17/24 06:15 10/09/24 04:39 Test 10/17/24 06:15 Range/Units Serum Glucose 157 H 74-106 mg/dL Problem List Atrial fibrillation with rapid ventricular response, newly diagnosed. Left pleural effusion. Sepsis. Hyperkalemia. Acute kidney injury. Transaminitis. Prediabetes. History of alcoholism. Morbidly obese. Severe systolic HF EF 15%, large pleural effusions. Pericardial effusion. Assessment/Plan Continued all current supportive medical care. Morphine and [place] for pain management. Amiodarone. Aspirin, Metoprolol. Digoxin. Entresto. Eliquis. DVT prophylactics. Diuretics with Lasix. Additional plan as per the hospital course. Dietary Evaluation Review Comments: 1. Refer to CDE on DC for weight management 2. Continue current plan of care Expected Outcomes/Goals: To meet >75% estimated needs Fu 3-5 days Plan discussed with: Patient XIOMY JERONIMO MD Oct 17, 2024 16:12
[2024-10-17 19:05] LABS: Potassium 3.5 mmol/L (3.5-5.1)
[2024-10-17 19:16] LABS: Magnesium 2.7 mg/dL (1.6-2.6)
[2024-10-17] MEDS: POTASSIUM CHL 20 Meq TABLET PO ONE (22:03)
[2024-10-18] VITALS (8 sets, daily range): BP systolic 95–107; BP diastolic 60–83; PULSE 60–117; RESP 15–18; TEMP 97.6–98.1; O2SAT 92–98
[2024-10-18 07:13] LABS: Potassium 3.7 mmol/L (3.5-5.1)
[2024-10-18 07:14] LABS: Anion Gap 11 (5-15); Calcium 9.8 mg/dL (8.7-10.4)
[2024-10-18 07:19] LABS: BUN/Creatinine Ratio 27.8 (10.0-20.0)
[2024-10-18 07:25] LABS: Blood Urea Nitrogen 67 mg/dL (9-23); Carbon Dioxide 32 mmol/L (20-31); Chloride 88 mmol/L (98-107); Glucose 165 mg/dL (74-106); Sodium 131 mmol/L (136-145)
--- NOTE | 2024-10-18 10:20 | DVH ---
CHEST XRAY: 2 view(s) were obtained HISTORY: EDEMA COMPARISON: 10/07/24. FINDINGS: There is a moderate- large left pleural effusion with associated left lower lobe atelectasis. There i s a trace right pleural effusion. Cardiomediastinal silhouette is markedly enlarged. There is trace s eptal thickening. Overlying devices. IMPRESSION: 1. Unchanged moderate-large left pleural effusion with enlarged cardiomediastinal silhouette 2. Trace right pleural fusion 3. Trace interstitial edema, slightly improved when compared to 10/07/24
--- NOTE | 2024-10-18 10:28 | DVHPN2 ---
Progress Note Date Seen: Oct 18, 2024 Medical Necessity Reason Pt with a Central, PICC or Fol: Yes The following are medically ne: Dean Catheter Reason for dean catheter: Strict I&O Subjective Patient reports: No new complaints Objective vital signs Vital Sign Date Time Temp Pulse Resp B/P (MAP) Pulse Ox O2 Delivery O2 Flow Rate FiO2 10/18/24 10:08 100/79 10/18/24 10:00 60 10/18/24 08:44 97.6 18 94 97.6 10/17/24 20:00 Nasal Cannula* 3 32 Total Intake and Output 10/17/24 10/17/24 10/18/24 15:00 23:00 07:00 Intake Total 760 ml 700 ml Output Total 900 ml 1400 ml Balance -140 ml -700 ml medications Current Medications Medications Dose Ordered Sig/Nadia Route Start Time Stop Time Status Last Admin Dose Admin Digoxin 0.125 mg DAILY PO 10/06/24 10:00 10/16/24 09:39 0.125 MG Aspirin 81 mg DAILY PO 10/06/24 10:00 10/18/24 10:08 81 MG Ondansetron HCl 4 mg Q4HP PRN IV 10/05/24 20:45 10/14/24 09:45 4 MG Docusate Sodium 100 mg BIDPRN PRN PO 10/05/24 20:45 10/07/24 14:18 100 MG Nitroglycerin 0.4 mg Q5MINP PRN SL 10/05/24 22:30 Amiodarone HCl 200 mg Q12HR PO 10/07/24 15:00 10/18/24 10:09 200 MG Vancomycin HCl 250 ml @ 200 mls/hr Q12H IV 10/08/24 14:00 UNV Apixaban 5 mg BIDPC PO 10/10/24 19:00 10/18/24 10:09 5 MG Midodrine 10 mg TID@0600,1200,1800 PO 10/13/24 12:00 10/18/24 06:26 10 MG Dopamine HCl/ Dextrose 250 ml @ 9.503 mls/ hr Q24H IV 10/14/24 07:00 10/18/24 06:39 9.503 MLS/HR Acetaminophen 650 mg Q6HP PRN PO 10/15/24 16:45 10/18/24 10:09 650 MG Furosemide 80 mg Q8H IV 10/16/24 14:00 10/17/24 22:04 80 MG Metolazone 5 mg DAILY PO 10/17/24 10:00 10/18/24 10:08 5 MG Potassium Bicarbonate 50 meq DAILY PO 10/17/24 10:00 10/18/24 10:06 50 MEQ Examination: GENERAL:Abnormal, MSK:Abnormal, NEURO:Normal laboratory and microbiology Laboratory Tests 10/18/24 06:36 10/09/24 04:39 Test 10/18/24 06:36 Range/Units Serum Glucose 165 H 74-106 mg/dL Microbiology Date/Time Source Procedure Growth Status 10/07/24 14:06 Pleural Fluid Gram Stain - Final Complete 10/07/24 14:06 Pleural Fluid Body Fluid Culture - Final Complete 10/06/24 12:31 Nose MRSA Screen - Final Complete 10/05/24 19:19 Blood Blood Culture - Final NO GROWTH AFTER 5 DAYS OF INCUBATION. Complete Problem List/Assessment/Plan Problem List/Assessment/Plan Acute kidney injury due to hypotension/cardiorenal etiology ckd cr 1.1 on admission severe systolic HF EF 15%, large pleural effusions s/p thoracentesis pericardial effusion afib RVR Recommendations Continue diuretics-added metolozone on lasix tid We will follow closely Plan discussed with: Patient My Orders My Orders Orders - DINA FORBES MD Procedure Category Date Status Time Chest Two Views XY 10/18/24 Resulted Routine 07:42 Dietary Evaluation Review Comments: 1. Refer to CDE on DC for weight management 2. Continue current plan of care Expected Outcomes/Goals: To meet >75% estimated needs Fu 3-5 days DINA FORBES MD Oct 18, 2024 10:27
--- NOTE | 2024-10-18 11:47 | DVHPN2 ---
Subjective The patient is seen and examined at bedside. Feel better today. at bedside. Reviewed: Care Plan, H&P, Labs, Medications, Radiology Changes from previous H/P or p: No Changes Eyes: No Pain, No Vision change, No Conjunctivae inflammation, No Eyelid inflammation, No Other, No Redness ENT: No Ear pain, No Ear discharge, No Nose pain, No Nose discharge, No Nose congestion, No Mouth pain, No Mouth swelling, No Throat pain, No Throat swelling, No Other Cardiovascular: No Chest Pain; Palpitations; No Orthopnea, No Paroxysmal Noc. Dyspnea, No Edema, No Lt Headedness, No Other Respiratory: No Cough, No Dry; Shortness of breath; No SOB with excertion, No Wheezing, No Hemoptysis, No Pleuritic Pain, No Sputum, No Other Gastrointestinal: No Nausea, No Vomiting, No Abdominal Pain, No Diarrhea, No Constipation, No Melena, No Hematochezia, No Other Genitourinary: No Dysuria, No Frequency, No Incontinence, No Hematuria, No Retention, No Other Musculoskeletal: No other, No neck pain, No shoulder pain, No arm pain, No back pain, No hand pain, No leg pain, No foot pain Skin: No Rash, No Lesions, No Jaundice, No Bruising, No Other Objective Vitals Vital Signs Date Time Temp Pulse Resp B/P (MAP) Pulse Ox O2 Delivery O2 Flow Rate FiO2 10/18/24 10:08 100/79 10/18/24 10:00 60 10/18/24 08:44 97.6 18 94 97.6 10/17/24 20:00 Nasal Cannula* 3 32 Intake/Output Intake and Output 10/18/24 07:00 Intake Total 1460 ml Output Total 2300 ml Balance -840 ml Intake Oral 1460 ml Output Urine Total 2300 ml General Appearance: Alert, Oriented X3, mild distress HEENT: Atraumatic, PERRLA, EOMI, Mucous membr. moist/pink Neck: Supple Lungs: Other (Bilateral rhonchi) Cardiovascular: Regular rate, Normal S1, Normal S2, No murmurs Abdomen: Normal bowel sounds, Soft, No tenderness Extremities: Other (2+ edema B) Neuro: Cranial nerves 3-12 NL Psych/Mental Status: Mental status NL Medications Current Medications Medications Dose Ordered Sig/Nadia Route Start Time Stop Time Status Last Admin Dose Admin Digoxin 0.125 mg DAILY PO 10/06/24 10:00 10/16/24 09:39 0.125 MG Aspirin 81 mg DAILY PO 10/06/24 10:00 10/18/24 10:08 81 MG Ondansetron HCl 4 mg Q4HP PRN IV 10/05/24 20:45 10/14/24 09:45 4 MG Docusate Sodium 100 mg BIDPRN PRN PO 10/05/24 20:45 10/07/24 14:18 100 MG Nitroglycerin 0.4 mg Q5MINP PRN SL 10/05/24 22:30 Amiodarone HCl 200 mg Q12HR PO 10/07/24 15:00 10/18/24 10:09 200 MG Vancomycin HCl 250 ml @ 200 mls/hr Q12H IV 10/08/24 14:00 UNV Apixaban 5 mg BIDPC PO 10/10/24 19:00 10/18/24 10:09 5 MG Midodrine 10 mg TID@0600,1200,1800 PO 10/13/24 12:00 10/18/24 06:26 10 MG Dopamine HCl/ Dextrose 250 ml @ 9.503 mls/ hr Q24H IV 10/14/24 07:00 10/18/24 06:39 9.503 MLS/HR Acetaminophen 650 mg Q6HP PRN PO 10/15/24 16:45 10/18/24 10:09 650 MG Furosemide 80 mg Q8H IV 10/16/24 14:00 10/17/24 22:04 80 MG Metolazone 5 mg DAILY PO 10/17/24 10:00 10/18/24 10:08 5 MG Potassium Bicarbonate 50 meq DAILY PO 10/17/24 10:00 10/18/24 10:06 50 MEQ Laboratory Results Laboratory Tests 10/09/24 04:39 10/18/24 06:36 Chemistry Test 10/17/24 18:14 10/18/24 06:36 Magnesium Level 2.7 mg/dL (1.6-2.6) H Calcium Level 9.8 mg/dL (8.7-10.4) Urinalysis Test 10/05/24 18:45 10/06/24 17:49 Urine Color Yellow (Yellow) Urine Clarity Clear (Clear) Urine pH 6.0 (5.0-9.0) Urine Specific [place] 1.031 (1.001-1.035) Urine Protein 2+ (Negative) H Urine Ketones Negative (Negative) Urine Blood Negative /uL (Negative) Urine Nitrite Negative (Negative) Urine Bilirubin Negative (Negative) Urine Urobilinogen 3 mg/dL (Negative) H Urine Leukocyte Esterase Negative /uL (Negative) Urine RBC 2 /hpf (0 - 3) Urine Microscopic WBC 8 /HPF (0-3) H Urine Squamous Epithelial Cells Few /hpf (<5) Urine Bacteria Few /hpf (None Seen) H Urine Hyaline Casts Few /lpf (0 - 2) Urine Mucus Few (None Seen) Urine Glucose Trace mg/dL (Normal) Urine Creatinine 97.15 mg/dL (30.0-125.0) Urine Sodium < 10 mmol/L (40-220) L Urine Total Protein 84.0 mg/dL (1-14) H Microbiology Microbiology Date/Time Source Procedure Growth Status 10/07/24 14:06 Pleural Fluid Gram Stain - Final Complete 10/07/24 14:06 Pleural Fluid Body Fluid Culture - Final Complete 10/06/24 12:31 Nose MRSA Screen - Final Complete 10/05/24 19:19 Blood Blood Culture - Final NO GROWTH AFTER 5 DAYS OF INCUBATION. Complete Labs and/or images reviewed: Labs reviewed by me Assessment/Plan Assessment/Plan Acute CHF exacerbation with systolic dysfunction AFib with RVR , currently rate controlled Left-sided pleural effusion status post thoracentesis Acute kidney injury suspected secondary to vasomotor nephropathy Cardiomyopathy with EF of 15% History of alcoholism Morbid obesity class I Hypotension Pericardial effusion PLAN: Continuing current management. Continuing with Lasix, I am middle Serna's, midodrine, aspirin, digoxin, metoprolol and oxygen. Still waiting for LifeVest. Continuing with Eliquis. This medical document was created using an electronic medical record system with [employer] direct computerized dictation system. Although this document has been carefully reviewed, there may still be some phonetic and typographical errors. These areas are purely typographical due to imperfections of the software programs, and do not reflect any compromise in the patient's medical care. Plan discussed with: Patient, Spouse Date of Service: Oct 18, 2024 Billing Provider: MAHESH FOSTER MD Common Visit Codes: [id number] INP/OBS CARE(HIGH) MAHESH FOSTER MD Oct 18, 2024 11:47
--- NOTE | 2024-10-18 12:22 | DVH ---
Left Chest Sonogram Date: 10/18/2024 12:09 PM Clinical history: left flank hematoma Findings and technique: Limited sonographic evaluation of the left chest was performed. Soft tissue edema noted at the left f lank at the area of concern. Moderate to large left pleural fusion. IMPRESSION: 1. Soft tissue edema noted at the left flank at the area of concern. 2. Moderate to large left pleural fusion.
--- NOTE | 2024-10-18 22:51 | DVHPN2 ---
Progress Note - Dictate Date Seen: Oct 18, 2024 Medical Necessity Reason Pt with a Central, PICC or Fol: Yes The following are medically ne: Dean Catheter Reason for dean catheter: Strict I&O Subjective Patient was seen and evaluated in follow up. Last night the patient had 5 beats of V-Tach on the monitoring and evaluation advisor, patient was asymptomatic. Patient is on 3 LPM NC. Patient remains on Dopamine drip. CO2 32, BUN 67, [employer] 2.41. Chest x-ray shows unchanged moderate-large left pleural effusion with enlarged cardiomediastinal silhouette, trace right pleural fusion, trace interstitial edema, slightly improved when compared to 10/07/24. Chest US showed soft tissue edema noted at the left flank at the area of concern for moderate to large left pleural fusion. Telemetry reviewed. vital signs Vital Sign Date Time Temp Pulse Resp B/P (MAP) Pulse Ox O2 Delivery O2 Flow Rate FiO2 10/18/24 12:58 97.6 62 18 103/70 (81) 94 97.6 10/17/24 20:00 Nasal Cannula* 3 32 Total Intake and Output 10/17/24 10/17/24 10/18/24 15:00 23:00 07:00 Intake Total 760 ml 700 ml Output Total 900 ml 1400 ml Balance -140 ml -700 ml medications Current Medications Medications Dose Ordered Sig/Nadia Route Start Time Stop Time Status Last Admin Dose Admin Digoxin 0.125 mg DAILY PO 10/06/24 10:00 10/16/24 09:39 0.125 MG Aspirin 81 mg DAILY PO 10/06/24 10:00 10/18/24 10:08 81 MG Ondansetron HCl 4 mg Q4HP PRN IV 10/05/24 20:45 10/14/24 09:45 4 MG Docusate Sodium 100 mg BIDPRN PRN PO 10/05/24 20:45 10/07/24 14:18 100 MG Nitroglycerin 0.4 mg Q5MINP PRN SL 10/05/24 22:30 Amiodarone HCl 200 mg Q12HR PO 10/07/24 15:00 10/18/24 10:09 200 MG Vancomycin HCl 250 ml @ 200 mls/hr Q12H IV 10/08/24 14:00 UNV Apixaban 5 mg BIDPC PO 10/10/24 19:00 10/18/24 10:09 5 MG Midodrine 10 mg TID@0600,1200,1800 PO 10/13/24 12:00 10/18/24 12:41 10 MG Dopamine HCl/ Dextrose 250 ml @ 9.503 mls/ hr Q24H IV 10/14/24 07:00 10/18/24 06:39 9.503 MLS/HR Acetaminophen 650 mg Q6HP PRN PO 10/15/24 16:45 10/18/24 10:09 650 MG Furosemide 80 mg Q8H IV 10/16/24 14:00 10/17/24 22:04 80 MG Metolazone 5 mg DAILY PO 10/17/24 10:00 10/18/24 10:08 5 MG Potassium Bicarbonate 50 meq DAILY PO 10/17/24 10:00 10/18/24 10:06 50 MEQ objective GENERAL: Alert and oriented x 3. No acute distress. Morbidly obese. EYES: PERRL, EOMI. Anicteric. HENT: Moist mucous membranes. LUNGS: Diminished breath sounds. CARDIOVASCULAR: Irregular rate and rhythm. ABDOMEN: Soft, nontender and nondistended. EXTREMITIES: +3 pitting edema. NEUROLOGIC: No focal neurological deficits. SKIN: Warm, dry. laboratory and microbiology Laboratory Tests 10/18/24 06:36 10/09/24 04:39 Test 10/18/24 06:36 Range/Units Serum Glucose 165 H 74-106 mg/dL Problem List Atrial fibrillation with rapid ventricular response, newly diagnosed. Left pleural effusion. Sepsis. Hyperkalemia. Acute kidney injury. Transaminitis. Prediabetes. History of alcoholism. Morbidly obese. Severe systolic HF EF 15%, large pleural effusions. Pericardial effusion. Assessment/Plan Continued all current supportive medical care. Amiodarone. Eliquis. Aspirin. Digoxin. Diuretics with Lasix. Additional plan as per the hospital course. Dietary Evaluation Review Comments: 1. Refer to CDE on DC for weight management 2. Continue current plan of care Expected Outcomes/Goals: To meet >75% estimated needs Fu 3-5 days Plan discussed with: Patient XIOMY JERONIMO MD Oct 18, 2024 14:33
[2024-10-19] VITALS (8 sets, daily range): BP systolic 95–116; BP diastolic 70–80; PULSE 72–122; RESP 15–20; TEMP 97.5–98.1; O2SAT 93–97
--- NOTE | 2024-10-19 11:21 | DVHPN2 ---
Progress Note Date Seen: Oct 19, 2024 Medical Necessity Reason Pt with a Central, PICC or Fol: Yes The following are medically ne: Dean Catheter Reason for dean catheter: Strict I&O Subjective Review of Systems: RESPIRATORY:Abnormal Other Systems: Patient seen and examined by myself today in follow-up, O2 nasal cannula Objective vital signs Vital Sign Date Time Temp Pulse Resp B/P (MAP) Pulse Ox O2 Delivery O2 Flow Rate FiO2 10/19/24 09:48 68 10/19/24 09:46 112/80 10/19/24 08:25 97.5 20 97 97.5 10/19/24 08:00 Nasal Cannula* 3 32 Total Intake and Output 10/18/24 10/18/24 10/19/24 15:00 23:00 07:00 Intake Total 600 ml 845 ml Output Total 575 ml 1800 ml Balance 25 ml -955 ml medications Current Medications Medications Dose Ordered Sig/Nadia Route Start Time Stop Time Status Last Admin Dose Admin Digoxin 0.125 mg DAILY PO 10/06/24 10:00 10/19/24 09:48 0.125 MG Aspirin 81 mg DAILY PO 10/06/24 10:00 10/19/24 09:45 81 MG Ondansetron HCl 4 mg Q4HP PRN IV 10/05/24 20:45 10/14/24 09:45 4 MG Docusate Sodium 100 mg BIDPRN PRN PO 10/05/24 20:45 10/07/24 14:18 100 MG Nitroglycerin 0.4 mg Q5MINP PRN SL 10/05/24 22:30 Amiodarone HCl 200 mg Q12HR PO 10/07/24 15:00 10/19/24 09:44 200 MG Vancomycin HCl 250 ml @ 200 mls/hr Q12H IV 10/08/24 14:00 UNV Apixaban 5 mg BIDPC PO 10/10/24 19:00 10/19/24 09:45 5 MG Midodrine 10 mg TID@0600,1200,1800 PO 10/13/24 12:00 10/19/24 05:42 10 MG Dopamine HCl/ Dextrose 250 ml @ 9.503 mls/ hr Q24H IV 10/14/24 07:00 10/19/24 06:32 9.503 MLS/HR Acetaminophen 650 mg Q6HP PRN PO 10/15/24 16:45 10/19/24 09:45 650 MG Furosemide 80 mg Q8H IV 10/16/24 14:00 10/19/24 05:42 80 MG Metolazone 5 mg DAILY PO 10/17/24 10:00 10/19/24 09:46 5 MG Potassium Bicarbonate 50 meq DAILY PO 10/17/24 10:00 10/19/24 09:48 50 MEQ Examination: LUNGS:Normal, CVS:Normal, MSK:Normal laboratory and microbiology Laboratory Tests 10/18/24 06:36 10/09/24 04:39 Test 10/18/24 06:36 Range/Units Serum Glucose 165 H 74-106 mg/dL Microbiology Date/Time Source Procedure Growth Status 10/07/24 14:06 Pleural Fluid Gram Stain - Final Complete 10/07/24 14:06 Pleural Fluid Body Fluid Culture - Final Complete 10/06/24 12:31 Nose MRSA Screen - Final Complete 10/05/24 19:19 Blood Blood Culture - Final NO GROWTH AFTER 5 DAYS OF INCUBATION. Complete Problem List/Assessment/Plan Problem List/Assessment/Plan Acute kidney injury superimposed Chronic Kidney Disease secondary hemodynamic mediated, feNa < 1% severe systolic HF EF 15%, large pleural effusions s/p thoracentesis pericardial effusion afib RVR Hyponatremia due to excess H2O Recommendations Kidney function stabilize Increased urine output Strict I&O's I agree with diuresis KCL replacement Fluid restriction Renal diet We will continue to follow up Plan discussed with: Patient Dietary Evaluation Review Comments: 1. Refer to CDE on DC for weight management 2. Continue current plan of care Expected Outcomes/Goals: To meet >75% estimated needs Fu 3-5 days MARCELINA MESA MD Oct 19, 2024 11:21
--- NOTE | 2024-10-19 12:01 | DVHPN2 ---
Subjective The patient is seen and examined at bedside. Feel better today. at bedside. Reviewed: Care Plan, H&P, Labs, Medications, Radiology Changes from previous H/P or p: No Changes Eyes: No Pain, No Vision change, No Conjunctivae inflammation, No Eyelid inflammation, No Other, No Redness ENT: No Ear pain, No Ear discharge, No Nose pain, No Nose discharge, No Nose congestion, No Mouth pain, No Mouth swelling, No Throat pain, No Throat swelling, No Other Cardiovascular: No Chest Pain; Palpitations; No Orthopnea, No Paroxysmal Noc. Dyspnea, No Edema, No Lt Headedness, No Other Respiratory: No Cough, No Dry; Shortness of breath; No SOB with excertion, No Wheezing, No Hemoptysis, No Pleuritic Pain, No Sputum, No Other Gastrointestinal: No Nausea, No Vomiting, No Abdominal Pain, No Diarrhea, No Constipation, No Melena, No Hematochezia, No Other Genitourinary: No Dysuria, No Frequency, No Incontinence, No Hematuria, No Retention, No Other Musculoskeletal: No other, No neck pain, No shoulder pain, No arm pain, No back pain, No hand pain, No leg pain, No foot pain Skin: No Rash, No Lesions, No Jaundice, No Bruising, No Other Objective Vitals Vital Signs Date Time Temp Pulse Resp B/P (MAP) Pulse Ox O2 Delivery O2 Flow Rate FiO2 10/19/24 09:48 68 10/19/24 09:46 112/80 10/19/24 08:25 97.5 20 97 97.5 10/19/24 08:00 Nasal Cannula* 3 32 Intake/Output Intake and Output 10/19/24 07:00 Intake Total 1445 ml Output Total 2375 ml Balance -930 ml Intake Oral 1445 ml Output Urine Total 2375 ml # Bowel Movements 3 General Appearance: Alert, Oriented X3, mild distress HEENT: Atraumatic, PERRLA, EOMI, Mucous membr. moist/pink Neck: Supple Lungs: Other (Bilateral rhonchi) Cardiovascular: Regular rate, Normal S1, Normal S2, No murmurs Abdomen: Normal bowel sounds, Soft, No tenderness Extremities: Other (2+ edema B) Neuro: Cranial nerves 3-12 NL Psych/Mental Status: Mental status NL Medications Current Medications Medications Dose Ordered Sig/Nadia Route Start Time Stop Time Status Last Admin Dose Admin Digoxin 0.125 mg DAILY PO 10/06/24 10:00 10/19/24 09:48 0.125 MG Aspirin 81 mg DAILY PO 10/06/24 10:00 10/19/24 09:45 81 MG Ondansetron HCl 4 mg Q4HP PRN IV 10/05/24 20:45 10/14/24 09:45 4 MG Docusate Sodium 100 mg BIDPRN PRN PO 10/05/24 20:45 10/07/24 14:18 100 MG Nitroglycerin 0.4 mg Q5MINP PRN SL 10/05/24 22:30 Amiodarone HCl 200 mg Q12HR PO 10/07/24 15:00 10/19/24 09:44 200 MG Vancomycin HCl 250 ml @ 200 mls/hr Q12H IV 10/08/24 14:00 UNV Apixaban 5 mg BIDPC PO 10/10/24 19:00 10/19/24 09:45 5 MG Midodrine 10 mg TID@0600,1200,1800 PO 10/13/24 12:00 10/19/24 05:42 10 MG Dopamine HCl/ Dextrose 250 ml @ 9.503 mls/ hr Q24H IV 10/14/24 07:00 10/19/24 06:32 9.503 MLS/HR Acetaminophen 650 mg Q6HP PRN PO 10/15/24 16:45 10/19/24 09:45 650 MG Furosemide 80 mg Q8H IV 10/16/24 14:00 10/19/24 05:42 80 MG Metolazone 5 mg DAILY PO 10/17/24 10:00 10/19/24 09:46 5 MG Potassium Bicarbonate 50 meq DAILY PO 10/17/24 10:00 10/19/24 09:48 50 MEQ Laboratory Results Laboratory Tests 10/09/24 04:39 10/18/24 06:36 Urinalysis Test 10/05/24 18:45 10/06/24 17:49 Urine Color Yellow (Yellow) Urine Clarity Clear (Clear) Urine pH 6.0 (5.0-9.0) Urine Specific [place] 1.031 (1.001-1.035) Urine Protein 2+ (Negative) H Urine Ketones Negative (Negative) Urine Blood Negative /uL (Negative) Urine Nitrite Negative (Negative) Urine Bilirubin Negative (Negative) Urine Urobilinogen 3 mg/dL (Negative) H Urine Leukocyte Esterase Negative /uL (Negative) Urine RBC 2 /hpf (0 - 3) Urine Microscopic WBC 8 /HPF (0-3) H Urine Squamous Epithelial Cells Few /hpf (<5) Urine Bacteria Few /hpf (None Seen) H Urine Hyaline Casts Few /lpf (0 - 2) Urine Mucus Few (None Seen) Urine Glucose Trace mg/dL (Normal) Urine Creatinine 97.15 mg/dL (30.0-125.0) Urine Sodium < 10 mmol/L (40-220) L Urine Total Protein 84.0 mg/dL (1-14) H Microbiology Microbiology Date/Time Source Procedure Growth Status 10/07/24 14:06 Pleural Fluid Gram Stain - Final Complete 10/07/24 14:06 Pleural Fluid Body Fluid Culture - Final Complete 10/06/24 12:31 Nose MRSA Screen - Final Complete 10/05/24 19:19 Blood Blood Culture - Final NO GROWTH AFTER 5 DAYS OF INCUBATION. Complete Labs and/or images reviewed: Labs reviewed by me Assessment/Plan Assessment/Plan Acute CHF exacerbation with systolic dysfunction AFib with RVR , currently rate controlled Left-sided pleural effusion status post thoracentesis Acute kidney injury suspected secondary to vasomotor nephropathy Cardiomyopathy with EF of 15% History of alcoholism Morbid obesity class I Hypotension Pericardial effusion PLAN: Continuing current management. Continuing with Lasix, I am middle Serna's, midodrine, aspirin, digoxin, metoprolol and oxygen. Still waiting for LifeVest. Continuing with Eliquis. This medical document was created using an electronic medical record system with [employer] direct computerized dictation system. Although this document has been carefully reviewed, there may still be some phonetic and typographical errors. These areas are purely typographical due to imperfections of the software programs, and do not reflect any compromise in the patient's medical care. Plan discussed with: Patient Date of Service: Oct 19, 2024 Billing Provider: MAHESH FOSTER MD Common Visit Codes: [id number] INP/OBS CARE(HIGH) MAHESH FOSTER MD Oct 19, 2024 12:01
--- NOTE | 2024-10-19 14:26 | DVHPN2 ---
Progress Note - Dictate Date Seen: Oct 19, 2024 Medical Necessity Reason Pt with a Central, PICC or Fol: Yes The following are medically ne: Dean Catheter Reason for dean catheter: Strict I&O Subjective Patient was seen and evaluated in follow up. Patient is on 3 LPM NC. Patient is continued on Dopamine drip. He denies any pain or discomfort. Telemetry reviewed. vital signs Vital Sign Date Time Temp Pulse Resp B/P (MAP) Pulse Ox O2 Delivery O2 Flow Rate FiO2 10/19/24 09:48 68 10/19/24 09:46 112/80 10/19/24 08:25 97.5 20 97 97.5 10/19/24 08:00 Nasal Cannula* 3 32 Total Intake and Output 10/18/24 10/18/24 10/19/24 15:00 23:00 07:00 Intake Total 600 ml 845 ml Output Total 575 ml 1800 ml Balance 25 ml -955 ml medications Current Medications Medications Dose Ordered Sig/Nadia Route Start Time Stop Time Status Last Admin Dose Admin Digoxin 0.125 mg DAILY PO 10/06/24 10:00 10/19/24 09:48 0.125 MG Aspirin 81 mg DAILY PO 10/06/24 10:00 10/19/24 09:45 81 MG Ondansetron HCl 4 mg Q4HP PRN IV 10/05/24 20:45 10/14/24 09:45 4 MG Docusate Sodium 100 mg BIDPRN PRN PO 10/05/24 20:45 10/07/24 14:18 100 MG Nitroglycerin 0.4 mg Q5MINP PRN SL 10/05/24 22:30 Amiodarone HCl 200 mg Q12HR PO 10/07/24 15:00 10/19/24 09:44 200 MG Vancomycin HCl 250 ml @ 200 mls/hr Q12H IV 10/08/24 14:00 UNV Apixaban 5 mg BIDPC PO 10/10/24 19:00 10/19/24 09:45 5 MG Midodrine 10 mg TID@0600,1200,1800 PO 10/13/24 12:00 10/19/24 12:53 10 MG Dopamine HCl/ Dextrose 250 ml @ 9.503 mls/ hr Q24H IV 10/14/24 07:00 10/19/24 06:32 9.503 MLS/HR Acetaminophen 650 mg Q6HP PRN PO 10/15/24 16:45 10/19/24 09:45 650 MG Furosemide 80 mg Q8H IV 10/16/24 14:00 10/19/24 05:42 80 MG Metolazone 5 mg DAILY PO 10/17/24 10:00 10/19/24 09:46 5 MG Potassium Bicarbonate 50 meq DAILY PO 10/17/24 10:00 10/19/24 09:48 50 MEQ objective GENERAL: Alert and oriented x 3. No acute distress. Morbidly obese. EYES: PERRL, EOMI. Anicteric. HENT: Moist mucous membranes. LUNGS: Diminished breath sounds. CARDIOVASCULAR: Irregular rate and rhythm. ABDOMEN: Soft, nontender and nondistended. EXTREMITIES: +3 pitting edema. NEUROLOGIC: No focal neurological deficits. SKIN: Warm, dry. laboratory and microbiology Laboratory Tests 10/18/24 06:36 10/09/24 04:39 Test 10/18/24 06:36 Range/Units Serum Glucose 165 H 74-106 mg/dL Problem List Atrial fibrillation with rapid ventricular response, newly diagnosed. Left pleural effusion. Sepsis. Hyperkalemia. Acute kidney injury. Transaminitis. Prediabetes. History of alcoholism. Morbidly obese. Severe systolic HF EF 15%, large pleural effusions. Pericardial effusion. Assessment/Plan Continued all current supportive medical care. Amiodarone. Eliquis. Aspirin. Digoxin. Diuretics with Lasix. Additional plan as per the hospital course. Dietary Evaluation Review Comments: 1. Refer to CDE on DC for weight management 2. Continue current plan of care Expected Outcomes/Goals: To meet >75% estimated needs Fu 3-5 days Plan discussed with: Patient XIOMY JERONIMO MD Oct 19, 2024 13:17
[2024-10-20] VITALS (9 sets, daily range): BP systolic 97–115; BP diastolic 65–79; PULSE 101–125; RESP 18–19; TEMP 97.5–97.9; O2SAT 92–97
--- NOTE | 2024-10-20 10:36 | DVHPN2 ---
Progress Note Date Seen: Oct 20, 2024 Medical Necessity Reason Pt with a Central, PICC or Fol: Yes The following are medically ne: Dean Catheter Reason for dean catheter: Strict I&O Subjective Review of Systems: RESPIRATORY:Abnormal Other Systems: Patient seen and examined by myself today in follow-up Objective vital signs Vital Sign Date Time Temp Pulse Resp B/P (MAP) Pulse Ox O2 Delivery O2 Flow Rate FiO2 10/20/24 08:58 78 10/20/24 08:52 106/73 10/20/24 08:30 97.8 19 94 97.8 10/19/24 20:00 Nasal Cannula* 3 32 Total Intake and Output 10/19/24 10/19/24 10/20/24 15:00 23:00 07:00 Intake Total 360 ml 464 ml 300 ml Output Total 1350 ml 1000 ml Balance 360 ml -886 ml -700 ml medications Current Medications Medications Dose Ordered Sig/Nadia Route Start Time Stop Time Status Last Admin Dose Admin Digoxin 0.125 mg DAILY PO 10/06/24 10:00 10/20/24 08:58 0.125 MG Aspirin 81 mg DAILY PO 10/06/24 10:00 10/20/24 08:59 81 MG Ondansetron HCl 4 mg Q4HP PRN IV 10/05/24 20:45 10/14/24 09:45 4 MG Docusate Sodium 100 mg BIDPRN PRN PO 10/05/24 20:45 10/07/24 14:18 100 MG Nitroglycerin 0.4 mg Q5MINP PRN SL 10/05/24 22:30 Amiodarone HCl 200 mg Q12HR PO 10/07/24 15:00 10/20/24 08:58 200 MG Vancomycin HCl 250 ml @ 200 mls/hr Q12H IV 10/08/24 14:00 UNV Apixaban 5 mg BIDPC PO 10/10/24 19:00 10/20/24 08:51 5 MG Midodrine 10 mg TID@0600,1200,1800 PO 10/13/24 12:00 10/20/24 05:14 10 MG Dopamine HCl/ Dextrose 250 ml @ 9.503 mls/ hr Q24H IV 10/14/24 07:00 10/20/24 06:54 9.503 MLS/HR Acetaminophen 650 mg Q6HP PRN PO 10/15/24 16:45 10/20/24 01:33 650 MG Furosemide 80 mg Q8H IV 10/16/24 14:00 10/20/24 05:14 80 MG Metolazone 5 mg DAILY PO 10/17/24 10:00 10/20/24 08:52 5 MG Potassium Bicarbonate 50 meq DAILY PO 10/17/24 10:00 10/20/24 09:00 50 MEQ Examination: LUNGS:Normal, CVS:Normal, MSK:Abnormal laboratory and microbiology Laboratory Tests 10/18/24 06:36 10/09/24 04:39 Test 10/18/24 06:36 Range/Units Serum Glucose 165 H 74-106 mg/dL Microbiology Date/Time Source Procedure Growth Status 10/07/24 14:06 Pleural Fluid Gram Stain - Final Complete 10/07/24 14:06 Pleural Fluid Body Fluid Culture - Final Complete 10/06/24 12:31 Nose MRSA Screen - Final Complete 10/05/24 19:19 Blood Blood Culture - Final NO GROWTH AFTER 5 DAYS OF INCUBATION. Complete Problem List/Assessment/Plan Problem List/Assessment/Plan Acute kidney injury superimposed Chronic Kidney Disease secondary hemodynamic mediated, feNa < 1% Acute respiratory failure severe systolic HF EF 15%, pericardial effusion Left pleural effusion afib RVR Hyponatremia due to excess H2O Recommendations Kidney function stabilize Increased urine output Strict I&O's I agree with diuresis Thoracentesis KCL replacement Fluid restriction Renal diet We will continue to follow up Plan discussed with: Patient My Orders My Orders Orders - MARCELINA MESA MD Procedure Category Date Status Time Maintain Fluid RAJAT 10/19/24 In Process Restrictions 11:20 Renal Specific DIET 10/19/24 Transmitted Diet(Renal) Lunch Dietary Evaluation Review Comments: 1. Refer to CDE on DC for weight management 2. Continue current plan of care Expected Outcomes/Goals: To meet >75% estimated needs Fu 3-5 days MARCELINA MESA MD Oct 20, 2024 10:36
--- NOTE | 2024-10-20 14:06 | DVHPN2 ---
Subjective The patient is seen and examined at bedside. Feel better today. at bedside. Reviewed: Care Plan, H&P, Labs, Medications, Radiology Changes from previous H/P or p: No Changes Eyes: No Pain, No Vision change, No Conjunctivae inflammation, No Eyelid inflammation, No Other, No Redness ENT: No Ear pain, No Ear discharge, No Nose pain, No Nose discharge, No Nose congestion, No Mouth pain, No Mouth swelling, No Throat pain, No Throat swelling, No Other Cardiovascular: No Chest Pain; Palpitations; No Orthopnea, No Paroxysmal Noc. Dyspnea, No Edema, No Lt Headedness, No Other Respiratory: No Cough, No Dry; Shortness of breath; No SOB with excertion, No Wheezing, No Hemoptysis, No Pleuritic Pain, No Sputum, No Other Gastrointestinal: No Nausea, No Vomiting, No Abdominal Pain, No Diarrhea, No Constipation, No Melena, No Hematochezia, No Other Genitourinary: No Dysuria, No Frequency, No Incontinence, No Hematuria, No Retention, No Other Musculoskeletal: No other, No neck pain, No shoulder pain, No arm pain, No back pain, No hand pain, No leg pain, No foot pain Skin: No Rash, No Lesions, No Jaundice, No Bruising, No Other Objective Vitals Vital Signs Date Time Temp Pulse Resp B/P (MAP) Pulse Ox O2 Delivery O2 Flow Rate FiO2 10/20/24 12:30 97.5 110 19 115/79 (91) 92 97.5 10/20/24 08:00 Nasal Cannula* 3 32 Intake/Output Intake and Output 10/20/24 07:00 Intake Total 1124 ml Output Total 2350 ml Balance -1226 ml Intake Oral 1010 ml IV Total 114 ml Output Urine Total 2350 ml # Bowel Movements 1 General Appearance: Alert, Oriented X3, mild distress HEENT: Atraumatic, PERRLA, EOMI, Mucous membr. moist/pink Neck: Supple Lungs: Other (Bilateral rhonchi) Cardiovascular: Regular rate, Normal S1, Normal S2, No murmurs Abdomen: Normal bowel sounds, Soft, No tenderness Extremities: Other (2+ edema B) Neuro: Cranial nerves 3-12 NL Psych/Mental Status: Mental status NL Medications Current Medications Medications Dose Ordered Sig/Nadia Route Start Time Stop Time Status Last Admin Dose Admin Digoxin 0.125 mg DAILY PO 10/06/24 10:00 10/20/24 08:58 0.125 MG Aspirin 81 mg DAILY PO 10/06/24 10:00 10/20/24 08:59 81 MG Ondansetron HCl 4 mg Q4HP PRN IV 10/05/24 20:45 10/14/24 09:45 4 MG Docusate Sodium 100 mg BIDPRN PRN PO 10/05/24 20:45 10/07/24 14:18 100 MG Nitroglycerin 0.4 mg Q5MINP PRN SL 10/05/24 22:30 Amiodarone HCl 200 mg Q12HR PO 10/07/24 15:00 10/20/24 08:58 200 MG Vancomycin HCl 250 ml @ 200 mls/hr Q12H IV 10/08/24 14:00 UNV Apixaban 5 mg BIDPC PO 10/10/24 19:00 10/20/24 08:51 5 MG Midodrine 10 mg TID@0600,1200,1800 PO 10/13/24 12:00 10/20/24 11:44 10 MG Dopamine HCl/ Dextrose 250 ml @ 9.503 mls/ hr Q24H IV 10/14/24 07:00 10/20/24 06:54 9.503 MLS/HR Acetaminophen 650 mg Q6HP PRN PO 10/15/24 16:45 10/20/24 01:33 650 MG Furosemide 80 mg Q8H IV 10/16/24 14:00 10/20/24 05:14 80 MG Metolazone 5 mg DAILY PO 10/17/24 10:00 10/20/24 08:52 5 MG Potassium Bicarbonate 50 meq DAILY PO 10/17/24 10:00 10/20/24 09:00 50 MEQ Laboratory Results Laboratory Tests 10/09/24 04:39 10/18/24 06:36 Urinalysis Test 10/05/24 18:45 10/06/24 17:49 Urine Color Yellow (Yellow) Urine Clarity Clear (Clear) Urine pH 6.0 (5.0-9.0) Urine Specific [place] 1.031 (1.001-1.035) Urine Protein 2+ (Negative) H Urine Ketones Negative (Negative) Urine Blood Negative /uL (Negative) Urine Nitrite Negative (Negative) Urine Bilirubin Negative (Negative) Urine Urobilinogen 3 mg/dL (Negative) H Urine Leukocyte Esterase Negative /uL (Negative) Urine RBC 2 /hpf (0 - 3) Urine Microscopic WBC 8 /HPF (0-3) H Urine Squamous Epithelial Cells Few /hpf (<5) Urine Bacteria Few /hpf (None Seen) H Urine Hyaline Casts Few /lpf (0 - 2) Urine Mucus Few (None Seen) Urine Glucose Trace mg/dL (Normal) Urine Creatinine 97.15 mg/dL (30.0-125.0) Urine Sodium < 10 mmol/L (40-220) L Urine Total Protein 84.0 mg/dL (1-14) H Microbiology Microbiology Date/Time Source Procedure Growth Status 10/07/24 14:06 Pleural Fluid Gram Stain - Final Complete 10/07/24 14:06 Pleural Fluid Body Fluid Culture - Final Complete 10/06/24 12:31 Nose MRSA Screen - Final Complete 10/05/24 19:19 Blood Blood Culture - Final NO GROWTH AFTER 5 DAYS OF INCUBATION. Complete Assessment/Plan Assessment/Plan Acute CHF exacerbation with systolic dysfunction AFib with RVR , currently rate controlled Left-sided pleural effusion status post thoracentesis Acute kidney injury suspected secondary to vasomotor nephropathy Cardiomyopathy with EF of 15% History of alcoholism Morbid obesity class I Hypotension Pericardial effusion PLAN: Continuing current management. Continuing with Lasix,metoprolol , midodrine, aspirin, digoxin, metoprolol and oxygen. Continue with Dobutamine Continue with LifeVest. Continuing with Eliquis. This medical document was created using an electronic medical record system with [employer] direct computerized dictation system. Although this document has been carefully reviewed, there may still be some phonetic and typographical errors. These areas are purely typographical due to imperfections of the software programs, and do not reflect any compromise in the patient's medical care. Plan discussed with: Patient Date of Service: Oct 20, 2024 Billing Provider: MAHESH FOSTER MD Common Visit Codes: [id number] INP/OBS CARE(HIGH) MAHESH FOSTER MD Oct 20, 2024 14:06
[2024-10-20] MEDS: APIXABAN 5 MG TAB PO SCH (18:28)
[2024-10-20] MEDS: DOBUTamine 1000MCG/ML 250 ML IV SCH (18:43)
[2024-10-20] MEDS: BUMETANIDE 2.5mg/10ml (0.25 mg/ml) INJ IV SCH (21:46)
--- NOTE | 2024-10-20 22:29 | DVHPN2 ---
Progress Note - Dictate Date Seen: Oct 20, 2024 Medical Necessity Reason Pt with a Central, PICC or Fol: Yes The following are medically ne: Dean Catheter Reason for dean catheter: Strict I&O Subjective Patient was seen and evaluated in follow up. This evening, patient had 3 runs of V-tach with HR in the 140's. Dobutamine drip to be stopped. Patient to be transferred to [facility]. Telemetry reviewed. vital signs Vital Sign Date Time Temp Pulse Resp B/P (MAP) Pulse Ox O2 Delivery O2 Flow Rate FiO2 10/20/24 12:30 97.5 110 19 115/79 (91) 92 97.5 10/20/24 08:00 Nasal Cannula* 3 32 Total Intake and Output 10/19/24 10/19/24 10/20/24 15:00 23:00 07:00 Intake Total 360 ml 464 ml 300 ml Output Total 1350 ml 1000 ml Balance 360 ml -886 ml -700 ml medications Current Medications Medications Dose Ordered Sig/Nadia Route Start Time Stop Time Status Last Admin Dose Admin Aspirin 81 mg DAILY PO 10/06/24 10:00 10/20/24 08:59 81 MG Ondansetron HCl 4 mg Q4HP PRN IV 10/05/24 20:45 10/14/24 09:45 4 MG Docusate Sodium 100 mg BIDPRN PRN PO 10/05/24 20:45 10/07/24 14:18 100 MG Nitroglycerin 0.4 mg Q5MINP PRN SL 10/05/24 22:30 Amiodarone HCl 200 mg Q12HR PO 10/07/24 15:00 10/20/24 08:58 200 MG Vancomycin HCl 250 ml @ 200 mls/hr Q12H IV 10/08/24 14:00 UNV Midodrine 10 mg TID@0600,1200,1800 PO 10/13/24 12:00 10/20/24 11:44 10 MG Dopamine HCl/ Dextrose 250 ml @ 9.503 mls/ hr Q24H IV 10/14/24 07:00 10/20/24 06:54 9.503 MLS/HR Acetaminophen 650 mg Q6HP PRN PO 10/15/24 16:45 10/20/24 01:33 650 MG Potassium Bicarbonate 50 meq DAILY PO 10/17/24 10:00 10/20/24 09:00 50 MEQ Apixaban 2.5 mg BIDPC PO 10/20/24 19:00 Metolazone 5 mg BIDD PO 10/20/24 18:00 Dobutamine HCl/ Dextrose 250 ml @ 0 mls/hr Q0M IV 10/20/24 14:45 UNV objective GENERAL: Alert and oriented x 3. No acute distress. Morbidly obese. EYES: PERRL, EOMI. Anicteric. HENT: Moist mucous membranes. LUNGS: Diminished breath sounds. CARDIOVASCULAR: Irregular rate and rhythm. ABDOMEN: Soft, nontender and nondistended. EXTREMITIES: +3 pitting edema. NEUROLOGIC: No focal neurological deficits. SKIN: Warm, dry. laboratory and microbiology Laboratory Tests 10/18/24 06:36 10/09/24 04:39 Test 10/18/24 06:36 Range/Units Serum Glucose 165 H 74-106 mg/dL Problem List Atrial fibrillation with rapid ventricular response, newly diagnosed. Left pleural effusion. Sepsis. Hyperkalemia. Acute kidney injury. Transaminitis. Prediabetes. History of alcoholism. Morbidly obese. Severe systolic HF EF 15%, large pleural effusions. Pericardial effusion. Assessment/Plan Continued all current supportive medical care. Amiodarone. Eliquis. Aspirin. Diuretics with Lasix. Additional plan as per the hospital course. Critical care time of 45 minutes provided to include time spent evaluation of patient at bedside, when appropriate patient/family education for diagnosis, treatment plan, review of pertinent medical information and discussion of care with specialty providers and PCP. Dietary Evaluation Review Comments: 1. Refer to CDE on DC for weight management 2. Continue current plan of care Expected Outcomes/Goals: To meet >75% estimated needs Fu 3-5 days Plan discussed with: Patient XIOMY JERONIMO MD Oct 20, 2024 15:39
[2024-10-21] VITALS (9 sets, daily range): BP systolic 92–113; BP diastolic 75–82; PULSE 48–132; RESP 18–19; TEMP 97.6–98.8; O2SAT 94–98
[2024-10-21 06:37] LABS: Anion Gap 12 (5-15); Calcium 10.1 mg/dL (8.7-10.4)
[2024-10-21 06:38] LABS: Carbon Dioxide 38 mmol/L (20-31); Chloride 81 mmol/L (98-107); Potassium 2.9 mmol/L (3.5-5.1); Sodium 131 mmol/L (136-145)
[2024-10-21 06:42] LABS: BUN/Creatinine Ratio 35.3 (10.0-20.0)
[2024-10-21 06:55] LABS: Glucose 153 mg/dL (74-106)
[2024-10-21 06:56] LABS: Blood Urea Nitrogen 82 mg/dL (9-23)
--- NOTE | 2024-10-21 10:55 | DVHPN2 ---
Progress Note Date Seen: Oct 21, 2024 Medical Necessity Reason Pt with a Central, PICC or Fol: Yes The following are medically ne: Dean Catheter Reason for dean catheter: Strict I&O Subjective Patient reports: No new complaints Other Systems: Patient seen and examined by myself today in follow-up Objective vital signs Vital Sign Date Time Temp Pulse Resp B/P (MAP) Pulse Ox O2 Delivery O2 Flow Rate FiO2 10/21/24 06:41 107/84 10/21/24 05:00 97.8 105 19 95 97.8 10/20/24 20:50 Nasal Cannula* 3 32 Total Intake and Output 10/20/24 10/20/24 10/21/24 15:00 23:00 07:00 Intake Total 50 ml 264 ml 161 ml Output Total 1400 ml 900 ml Balance 50 ml -1136 ml -739 ml medications Current Medications Medications Dose Ordered Sig/Nadia Route Start Time Stop Time Status Last Admin Dose Admin Aspirin 81 mg DAILY PO 10/06/24 10:00 10/21/24 09:11 81 MG Ondansetron HCl 4 mg Q4HP PRN IV 10/05/24 20:45 10/14/24 09:45 4 MG Docusate Sodium 100 mg BIDPRN PRN PO 10/05/24 20:45 10/07/24 14:18 100 MG Nitroglycerin 0.4 mg Q5MINP PRN SL 10/05/24 22:30 Amiodarone HCl 200 mg Q12HR PO 10/07/24 15:00 10/21/24 09:10 200 MG Vancomycin HCl 250 ml @ 200 mls/hr Q12H IV 10/08/24 14:00 UNV Midodrine 10 mg TID@0600,1200,1800 PO 10/13/24 12:00 10/21/24 05:22 10 MG Dopamine HCl/ Dextrose 250 ml @ 9.503 mls/ hr Q24H IV 10/14/24 07:00 10/20/24 06:54 9.503 MLS/HR Acetaminophen 650 mg Q6HP PRN PO 10/15/24 16:45 10/20/24 22:07 650 MG Potassium Bicarbonate 50 meq DAILY PO 10/17/24 10:00 10/21/24 09:11 50 MEQ Apixaban 2.5 mg BIDPC PO 10/20/24 19:00 10/21/24 09:11 2.5 MG Metolazone 5 mg BIDD PO 10/20/24 18:00 10/21/24 05:23 5 MG Bumetanide 2 mg TID IV 10/20/24 22:00 10/21/24 05:23 2 MG Examination: LUNGS:Normal, CVS:Normal, MSK:Normal laboratory and microbiology Laboratory Tests 10/21/24 05:42 10/09/24 04:39 Test 10/21/24 05:42 Range/Units Serum Glucose 153 H 74-106 mg/dL Microbiology Date/Time Source Procedure Growth Status 10/07/24 14:06 Pleural Fluid Gram Stain - Final Complete 10/07/24 14:06 Pleural Fluid Body Fluid Culture - Final Complete 10/06/24 12:31 Nose MRSA Screen - Final Complete 10/05/24 19:19 Blood Blood Culture - Final NO GROWTH AFTER 5 DAYS OF INCUBATION. Complete Problem List/Assessment/Plan Problem List/Assessment/Plan Acute kidney injury superimposed Chronic Kidney Disease secondary hemodynamic mediated, feNa < 1% Acute respiratory failure severe systolic HF EF 15%, pericardial effusion Left pleural effusion afib RVR Hyponatremia due to excess H2O Hypokalemic metabolic alkalosis due to aggressive diuresis Recommendations Kidney function stabilize Increased urine output Strict I&O's Decrease Bumex to 1 mg IV b.i.d. Thoracentesis KCL replacement Fluid restriction Renal diet We will continue to follow up Plan discussed with: Patient Dietary Evaluation Review Comments: 1. Refer to CDE on DC for weight management 2. Continue current plan of care Expected Outcomes/Goals: To meet >75% estimated needs Fu 3-5 days MARCELINA MESA MD Oct 21, 2024 10:55
[2024-10-21] MEDS: DOPamine 1600MCG/ML D5W 250 ML IV SCH (12:40)
[2024-10-21] MEDS: BUMETANIDE 2.5mg/10ml (0.25 mg/ml) INJ IV SCH (12:45)
[2024-10-21] MEDS: POTASSIUM CHLORIDE 80 MEQ, LIDOCAINE 1% (LOCAL ANESTH.) 6 ML in SODIUM CHL 0.9% 500 ML IV ONE (15:45)
--- NOTE | 2024-10-21 23:50 | DVHPN2 ---
Progress Note - Dictate Date Seen: Oct 21, 2024 Medical Necessity Reason Pt with a Central, PICC or Fol: Yes The following are medically ne: Dean Catheter Reason for dean catheter: Strict I&O Subjective Patient was seen and evaluated in follow up. Patient has Zoll life vest. K 2.9, CO2 38, BUN 82, [employer] 2.32. Patients potassium was replaced. Telemetry reviewed. vital signs Vital Sign Date Time Temp Pulse Resp B/P (MAP) Pulse Ox O2 Delivery O2 Flow Rate FiO2 10/21/24 12:45 102/75 10/21/24 12:40 98.6 48 18 98 98.6 10/21/24 08:00 Nasal Cannula* 3 32 Total Intake and Output 10/20/24 10/20/24 10/21/24 15:00 23:00 07:00 Intake Total 50 ml 264 ml 161 ml Output Total 1400 ml 900 ml Balance 50 ml -1136 ml -739 ml medications Current Medications Medications Dose Ordered Sig/Nadia Route Start Time Stop Time Status Last Admin Dose Admin Aspirin 81 mg DAILY PO 10/06/24 10:00 10/21/24 09:11 81 MG Ondansetron HCl 4 mg Q4HP PRN IV 10/05/24 20:45 10/14/24 09:45 4 MG Docusate Sodium 100 mg BIDPRN PRN PO 10/05/24 20:45 10/07/24 14:18 100 MG Nitroglycerin 0.4 mg Q5MINP PRN SL 10/05/24 22:30 Amiodarone HCl 200 mg Q12HR PO 10/07/24 15:00 10/21/24 09:10 200 MG Vancomycin HCl 250 ml @ 200 mls/hr Q12H IV 10/08/24 14:00 UNV Midodrine 10 mg TID@0600,1200,1800 PO 10/13/24 12:00 10/21/24 12:43 10 MG Acetaminophen 650 mg Q6HP PRN PO 10/15/24 16:45 10/20/24 22:07 650 MG Potassium Bicarbonate 50 meq DAILY PO 10/17/24 10:00 10/21/24 09:11 50 MEQ Apixaban 2.5 mg BIDPC PO 10/20/24 19:00 10/21/24 09:11 2.5 MG Metolazone 5 mg BIDD PO 10/20/24 18:00 10/21/24 05:23 5 MG Bumetanide 1 mg BIDD IV 10/21/24 11:00 10/21/24 12:45 1 MG Dopamine HCl/ Dextrose 250 ml @ 9.795 mls/ hr Q24H IV 10/21/24 12:30 10/21/24 12:40 9.795 MLS/HR objective GENERAL: Alert and oriented x 3. No acute distress. Morbidly obese. EYES: PERRL, EOMI. Anicteric. HENT: Moist mucous membranes. LUNGS: Diminished breath sounds. CARDIOVASCULAR: Irregular rate and rhythm. ABDOMEN: Soft, nontender and nondistended. EXTREMITIES: +3 pitting edema. NEUROLOGIC: No focal neurological deficits. SKIN: Warm, dry. laboratory and microbiology Laboratory Tests 10/21/24 05:42 10/09/24 04:39 Test 10/21/24 05:42 Range/Units Serum Glucose 153 H 74-106 mg/dL Problem List Atrial fibrillation with rapid ventricular response, newly diagnosed. Left pleural effusion. Sepsis. Hyperkalemia. Acute kidney injury. Transaminitis. Prediabetes. History of alcoholism. Morbidly obese. Severe systolic HF EF 15%, large pleural effusions. Pericardial effusion. Assessment/Plan Continued all current supportive medical care. Amiodarone. Eliquis. Aspirin. Diuretics with Bumex. Additional plan as per the hospital course. Critical care time of 45 minutes provided to include time spent evaluation of patient at bedside, when appropriate patient/family education for diagnosis, treatment plan, review of pertinent medical information and discussion of care with specialty providers and PCP. Dietary Evaluation Review Comments: 1. Refer to CDE on DC for weight management 2. Continue current plan of care Expected Outcomes/Goals: To meet >75% estimated needs Fu 3-5 days Plan discussed with: Patient XIOMY JERONIMO MD Oct 21, 2024 15:00
[2024-10-22] VITALS (8 sets, daily range): BP systolic 103–121; BP diastolic 76–91; PULSE 85–115; RESP 18–21; TEMP 97.4–98.7; O2SAT 93–99
--- NOTE | 2024-10-22 08:27 | DVHPN2 ---
Subjective The patient is seen and examined at bedside. The patient complained that since the time he started on dobutamine and dopamine he feels very weak and can not function. He wanted to know if anything else he can take to avoid tiredness Reviewed: Care Plan, H&P, Labs, Medications, Radiology Changes from previous H/P or p: No Changes Eyes: No Pain, No Vision change, No Conjunctivae inflammation, No Eyelid inflammation, No Other, No Redness ENT: No Ear pain, No Ear discharge, No Nose pain, No Nose discharge, No Nose congestion, No Mouth pain, No Mouth swelling, No Throat pain, No Throat swelling, No Other Cardiovascular: No Chest Pain; Palpitations; No Orthopnea, No Paroxysmal Noc. Dyspnea, No Edema, No Lt Headedness, No Other Respiratory: No Cough, No Dry; Shortness of breath; No SOB with excertion, No Wheezing, No Hemoptysis, No Pleuritic Pain, No Sputum, No Other Gastrointestinal: No Nausea, No Vomiting, No Abdominal Pain, No Diarrhea, No Constipation, No Melena, No Hematochezia, No Other Genitourinary: No Dysuria, No Frequency, No Incontinence, No Hematuria, No Retention, No Other Musculoskeletal: No other, No neck pain, No shoulder pain, No arm pain, No back pain, No hand pain, No leg pain, No foot pain Skin: No Rash, No Lesions, No Jaundice, No Bruising, No Other Objective Vitals Vital Signs Date Time Temp Pulse Resp B/P (MAP) Pulse Ox O2 Delivery O2 Flow Rate FiO2 10/22/24 05:42 104/78 10/22/24 05:00 97.5 110 19 95 97.5 10/21/24 20:00 Nasal Cannula* 3 32 Intake/Output Intake and Output 10/22/24 07:00 Intake Total 1664.77 ml Output Total 2901 ml Balance -1236.23 ml Intake Oral 1060 ml IV Total 604.77 ml Output Urine Total 2900 ml Stool Total 1 ml General Appearance: Alert, Oriented X3, mild distress HEENT: Atraumatic, PERRLA, EOMI, Mucous membr. moist/pink Neck: Supple Lungs: Other (Bilateral rhonchi) Cardiovascular: Regular rate, Normal S1, Normal S2, No murmurs Abdomen: Normal bowel sounds, Soft, No tenderness Extremities: Other (2+ edema B) Neuro: Cranial nerves 3-12 NL Psych/Mental Status: Mental status NL Medications Current Medications Medications Dose Ordered Sig/Nadia Route Start Time Stop Time Status Last Admin Dose Admin Aspirin 81 mg DAILY PO 10/06/24 10:00 10/21/24 09:11 81 MG Ondansetron HCl 4 mg Q4HP PRN IV 10/05/24 20:45 10/14/24 09:45 4 MG Docusate Sodium 100 mg BIDPRN PRN PO 10/05/24 20:45 10/07/24 14:18 100 MG Nitroglycerin 0.4 mg Q5MINP PRN SL 10/05/24 22:30 Amiodarone HCl 200 mg Q12HR PO 10/07/24 15:00 10/21/24 21:02 200 MG Vancomycin HCl 250 ml @ 200 mls/hr Q12H IV 10/08/24 14:00 UNV Midodrine 10 mg TID@0600,1200,1800 PO 10/13/24 12:00 10/22/24 05:42 10 MG Acetaminophen 650 mg Q6HP PRN PO 10/15/24 16:45 10/21/24 21:10 650 MG Potassium Bicarbonate 50 meq DAILY PO 10/17/24 10:00 10/21/24 09:11 50 MEQ Apixaban 2.5 mg BIDPC PO 10/20/24 19:00 10/21/24 19:17 2.5 MG Metolazone 5 mg BIDD PO 10/20/24 18:00 10/22/24 05:42 5 MG Bumetanide 1 mg BIDD IV 10/21/24 11:00 10/21/24 18:17 1 MG Dopamine HCl/ Dextrose 250 ml @ 9.795 mls/ hr Q24H IV 10/21/24 12:30 10/21/24 12:40 9.795 MLS/HR Laboratory Results Laboratory Tests 10/09/24 04:39 Chemistry Test 10/22/24 06:57 Calcium Level Pending Cardiac Markers Test 10/22/24 05:57 B-Type Natriuretic Peptide 64.45 pg/mL (0-100) Urinalysis Test 10/05/24 18:45 10/06/24 17:49 Urine Color Yellow (Yellow) Urine Clarity Clear (Clear) Urine pH 6.0 (5.0-9.0) Urine Specific [place] 1.031 (1.001-1.035) Urine Protein 2+ (Negative) H Urine Ketones Negative (Negative) Urine Blood Negative /uL (Negative) Urine Nitrite Negative (Negative) Urine Bilirubin Negative (Negative) Urine Urobilinogen 3 mg/dL (Negative) H Urine Leukocyte Esterase Negative /uL (Negative) Urine RBC 2 /hpf (0 - 3) Urine Microscopic WBC 8 /HPF (0-3) H Urine Squamous Epithelial Cells Few /hpf (<5) Urine Bacteria Few /hpf (None Seen) H Urine Hyaline Casts Few /lpf (0 - 2) Urine Mucus Few (None Seen) Urine Glucose Trace mg/dL (Normal) Urine Creatinine 97.15 mg/dL (30.0-125.0) Urine Sodium < 10 mmol/L (40-220) L Urine Total Protein 84.0 mg/dL (1-14) H Microbiology Microbiology Date/Time Source Procedure Growth Status 10/07/24 14:06 Pleural Fluid Gram Stain - Final Complete 10/07/24 14:06 Pleural Fluid Body Fluid Culture - Final Complete 10/06/24 12:31 Nose MRSA Screen - Final Complete 10/05/24 19:19 Blood Blood Culture - Final NO GROWTH AFTER 5 DAYS OF INCUBATION. Complete Labs and/or images reviewed: Labs reviewed by me Assessment/Plan Assessment/Plan Acute CHF exacerbation with systolic dysfunction AFib with RVR , currently rate controlled Left-sided pleural effusion status post thoracentesis Acute kidney injury suspected secondary to vasomotor nephropathy Cardiomyopathy with EF of 15% History of alcoholism Morbid obesity class I Hypotension Pericardial effusion PLAN: Continuing current management. Continuing with Lasix,metoprolol , midodrine, aspirin, digoxin, metoprolol and oxygen. Continue with Dobutamine and dopamine Continue with LifeVest. Continuing with Eliquis. I discussed with the patient regarding to his tiredness. Explained to him that he had cardiomyopathy with EF of 15%. The dobutamine and dopamine actually will help his heart and his kidney function. With his weakness we continuing physical therapy and hopefully he can improve. This medical document was created using an electronic medical record system with [employer] direct computerized dictation system. Although this document has been carefully reviewed, there may still be some phonetic and typographical errors. These areas are purely typographical due to imperfections of the software programs, and do not reflect any compromise in the patient's medical care. Plan discussed with: Patient, Daughter My Orders Orders - MAHESH FOSTER MD Procedure Category Date Status Time * Dietary Consult CONS 10/21/24 Transmitted 15:35 Date of Service: Oct 21, 2024 Billing Provider: MAHESH FOSTER MD Common Visit Codes: [id number] INP/OBS CARE(HIGH) MAHESH FOSTER MD Oct 22, 2024 08:27
--- NOTE | 2024-10-22 09:23 | DVHPN2 ---
Progress Note Date Seen: Oct 22, 2024 Medical Necessity Reason Pt with a Central, PICC or Fol: Yes The following are medically ne: Dean Catheter Reason for dean catheter: Strict I&O Subjective Review of Systems: RESPIRATORY:Abnormal Other Systems: Patient seen and examined by myself today in follow-up, O2 nasal cannula Objective vital signs Vital Sign Date Time Temp Pulse Resp B/P (MAP) Pulse Ox O2 Delivery O2 Flow Rate FiO2 10/22/24 08:50 98.7 105 20 110/86 (94) 97 98.7 10/21/24 20:00 Nasal Cannula* 3 32 Total Intake and Output 10/21/24 10/21/24 10/22/24 15:00 23:00 07:00 Intake Total 760 ml 904.77 ml Output Total 1751 ml 1150 ml Balance -991 ml -245.23 ml medications Current Medications Medications Dose Ordered Sig/Nadia Route Start Time Stop Time Status Last Admin Dose Admin Aspirin 81 mg DAILY PO 10/06/24 10:00 10/21/24 09:11 81 MG Ondansetron HCl 4 mg Q4HP PRN IV 10/05/24 20:45 10/14/24 09:45 4 MG Docusate Sodium 100 mg BIDPRN PRN PO 10/05/24 20:45 10/07/24 14:18 100 MG Nitroglycerin 0.4 mg Q5MINP PRN SL 10/05/24 22:30 Amiodarone HCl 200 mg Q12HR PO 10/07/24 15:00 10/21/24 21:02 200 MG Vancomycin HCl 250 ml @ 200 mls/hr Q12H IV 10/08/24 14:00 UNV Midodrine 10 mg TID@0600,1200,1800 PO 10/13/24 12:00 10/22/24 05:42 10 MG Acetaminophen 650 mg Q6HP PRN PO 10/15/24 16:45 10/21/24 21:10 650 MG Potassium Bicarbonate 50 meq DAILY PO 10/17/24 10:00 10/21/24 09:11 50 MEQ Apixaban 2.5 mg BIDPC PO 10/20/24 19:00 10/21/24 19:17 2.5 MG Metolazone 5 mg BIDD PO 10/20/24 18:00 10/22/24 05:42 5 MG Bumetanide 1 mg BIDD IV 10/21/24 11:00 10/21/24 18:17 1 MG Dopamine HCl/ Dextrose 250 ml @ 9.795 mls/ hr Q24H IV 10/21/24 12:30 10/21/24 12:40 9.795 MLS/HR Examination: LUNGS:Normal, CVS:Normal, MSK:Normal laboratory and microbiology Laboratory Tests 10/09/24 04:39 Test 10/22/24 09:02 Range/Units Serum Glucose Pending Microbiology Date/Time Source Procedure Growth Status 10/07/24 14:06 Pleural Fluid Gram Stain - Final Complete 10/07/24 14:06 Pleural Fluid Body Fluid Culture - Final Complete 10/06/24 12:31 Nose MRSA Screen - Final Complete 10/05/24 19:19 Blood Blood Culture - Final NO GROWTH AFTER 5 DAYS OF INCUBATION. Complete Problem List/Assessment/Plan Problem List/Assessment/Plan Acute kidney injury superimposed Chronic Kidney Disease secondary hemodynamic mediated, feNa < 1% Acute respiratory failure, O2 nasal cannula severe systolic HF EF 15%, pericardial effusion Left pleural effusion afib RVR Hyponatremia due to excess H2O Hypokalemic metabolic alkalosis due to aggressive diuresis Recommendations Kidney function stabilize Increased urine output Strict I&O's Decrease Bumex to 1 mg IV b.i.d. Low-dose dopamine Thoracentesis KCL replacement Fluid restriction Renal diet We will continue to follow up Plan discussed with: Patient My Orders My Orders Orders - MARCELINA MESA MD Procedure Category Date Status Time Bumetanide Injection PHA 10/21/24 In Process (Bumex Injection) 11:00 Dietary Evaluation Review Comments: 1. Refer to CDE on DC for weight management 2. Continue current plan of care Expected Outcomes/Goals: To meet >75% estimated needs Fu 3-5 days MARCELINA MESA MD Oct 22, 2024 09:23
[2024-10-22 09:31] LABS: Anion Gap 10 (5-15)
[2024-10-22 09:40] LABS: BUN/Creatinine Ratio 36.2 (10.0-20.0); Calcium 10.2 mg/dL (8.7-10.4); Carbon Dioxide 39 mmol/L (20-31); Chloride 83 mmol/L (98-107); Glucose 171 mg/dL (74-106); Potassium 3.2 mmol/L (3.5-5.1); Sodium 132 mmol/L (136-145)
[2024-10-22 09:41] LABS: Blood Urea Nitrogen 81 mg/dL (9-23)
--- NOTE | 2024-10-22 11:58 | DVHPN2 ---
Subjective The patient is seen and examined at bedside. The patient complained that since the time he started on dobutamine and dopamine he feels very weak and can not function. He wanted to know if anything else he can take to avoid tiredness Reviewed: Care Plan, H&P, Labs, Medications, Radiology Changes from previous H/P or p: No Changes Eyes: No Pain, No Vision change, No Conjunctivae inflammation, No Eyelid inflammation, No Other, No Redness ENT: No Ear pain, No Ear discharge, No Nose pain, No Nose discharge, No Nose congestion, No Mouth pain, No Mouth swelling, No Throat pain, No Throat swelling, No Other Cardiovascular: No Chest Pain; Palpitations; No Orthopnea, No Paroxysmal Noc. Dyspnea, No Edema, No Lt Headedness, No Other Respiratory: No Cough, No Dry; Shortness of breath; No SOB with excertion, No Wheezing, No Hemoptysis, No Pleuritic Pain, No Sputum, No Other Gastrointestinal: No Nausea, No Vomiting, No Abdominal Pain, No Diarrhea, No Constipation, No Melena, No Hematochezia, No Other Genitourinary: No Dysuria, No Frequency, No Incontinence, No Hematuria, No Retention, No Other Musculoskeletal: No other, No neck pain, No shoulder pain, No arm pain, No back pain, No hand pain, No leg pain, No foot pain Skin: No Rash, No Lesions, No Jaundice, No Bruising, No Other Objective Vitals Vital Signs Date Time Temp Pulse Resp B/P (MAP) Pulse Ox O2 Delivery O2 Flow Rate FiO2 10/22/24 08:50 98.7 105 20 110/86 (94) 97 98.7 10/22/24 08:00 Nasal Cannula* 3 32 Intake/Output Intake and Output 10/22/24 07:00 Intake Total 1664.77 ml Output Total 2901 ml Balance -1236.23 ml Intake Oral 1060 ml IV Total 604.77 ml Output Urine Total 2900 ml Stool Total 1 ml General Appearance: Alert, Oriented X3, mild distress HEENT: Atraumatic, PERRLA, EOMI, Mucous membr. moist/pink Neck: Supple Lungs: Other (Bilateral rhonchi) Cardiovascular: Regular rate, Normal S1, Normal S2, No murmurs Abdomen: Normal bowel sounds, Soft, No tenderness Extremities: Other (2+ edema B) Neuro: Cranial nerves 3-12 NL Psych/Mental Status: Mental status NL Medications Current Medications Medications Dose Ordered Sig/Nadia Route Start Time Stop Time Status Last Admin Dose Admin Aspirin 81 mg DAILY PO 10/06/24 10:00 10/22/24 09:56 81 MG Ondansetron HCl 4 mg Q4HP PRN IV 10/05/24 20:45 10/14/24 09:45 4 MG Docusate Sodium 100 mg BIDPRN PRN PO 10/05/24 20:45 10/07/24 14:18 100 MG Nitroglycerin 0.4 mg Q5MINP PRN SL 10/05/24 22:30 Amiodarone HCl 200 mg Q12HR PO 10/07/24 15:00 10/22/24 09:56 200 MG Vancomycin HCl 250 ml @ 200 mls/hr Q12H IV 10/08/24 14:00 UNV Midodrine 10 mg TID@0600,1200,1800 PO 10/13/24 12:00 10/22/24 05:42 10 MG Acetaminophen 650 mg Q6HP PRN PO 10/15/24 16:45 10/21/24 21:10 650 MG Potassium Bicarbonate 50 meq DAILY PO 10/17/24 10:00 10/22/24 10:00 50 MEQ Apixaban 2.5 mg BIDPC PO 10/20/24 19:00 10/22/24 09:56 2.5 MG Metolazone 5 mg BIDD PO 10/20/24 18:00 10/22/24 05:42 5 MG Bumetanide 1 mg BIDD IV 10/21/24 11:00 10/21/24 18:17 1 MG Dopamine HCl/ Dextrose 250 ml @ 9.795 mls/ hr Q24H IV 10/21/24 12:30 10/21/24 12:40 9.795 MLS/HR Laboratory Results Laboratory Tests 10/09/24 04:39 10/22/24 09:02 Chemistry Test 10/22/24 09:02 Calcium Level 10.2 mg/dL (8.7-10.4) Cardiac Markers Test 10/22/24 05:57 B-Type Natriuretic Peptide 64.45 pg/mL (0-100) Urinalysis Test 10/05/24 18:45 10/06/24 17:49 Urine Color Yellow (Yellow) Urine Clarity Clear (Clear) Urine pH 6.0 (5.0-9.0) Urine Specific [place] 1.031 (1.001-1.035) Urine Protein 2+ (Negative) H Urine Ketones Negative (Negative) Urine Blood Negative /uL (Negative) Urine Nitrite Negative (Negative) Urine Bilirubin Negative (Negative) Urine Urobilinogen 3 mg/dL (Negative) H Urine Leukocyte Esterase Negative /uL (Negative) Urine RBC 2 /hpf (0 - 3) Urine Microscopic WBC 8 /HPF (0-3) H Urine Squamous Epithelial Cells Few /hpf (<5) Urine Bacteria Few /hpf (None Seen) H Urine Hyaline Casts Few /lpf (0 - 2) Urine Mucus Few (None Seen) Urine Glucose Trace mg/dL (Normal) Urine Creatinine 97.15 mg/dL (30.0-125.0) Urine Sodium < 10 mmol/L (40-220) L Urine Total Protein 84.0 mg/dL (1-14) H Microbiology Microbiology Date/Time Source Procedure Growth Status 10/07/24 14:06 Pleural Fluid Gram Stain - Final Complete 10/07/24 14:06 Pleural Fluid Body Fluid Culture - Final Complete 10/06/24 12:31 Nose MRSA Screen - Final Complete 10/05/24 19:19 Blood Blood Culture - Final NO GROWTH AFTER 5 DAYS OF INCUBATION. Complete Labs and/or images reviewed: Labs reviewed by me Assessment/Plan Assessment/Plan Acute CHF exacerbation with systolic dysfunction AFib with RVR , currently rate controlled Left-sided pleural effusion status post thoracentesis Acute kidney injury suspected secondary to vasomotor nephropathy Cardiomyopathy with EF of 15% History of alcoholism Morbid obesity class I Hypotension Pericardial effusion PLAN: Continuing current management. Continuing with Lasix,metoprolol , midodrine, aspirin, digoxin, metoprolol and oxygen. Continue with Dobutamine and dopamine Continue with LifeVest. Continuing with Eliquis. I discussed with the patient regarding to his tiredness. Explained to him that he had cardiomyopathy with EF of 15%. The dobutamine and dopamine actually will help his heart and his kidney function. With his weakness we continuing physical therapy and hopefully he can improve. This medical document was created using an electronic medical record system with [employer] direct computerized dictation system. Although this document has been carefully reviewed, there may still be some phonetic and typographical errors. These areas are purely typographical due to imperfections of the software programs, and do not reflect any compromise in the patient's medical care. Plan discussed with: Patient, Daughter My Orders Orders - MAHESH FOSTER MD Procedure Category Date Status Time * Dietary Consult CONS 10/21/24 Transmitted 15:35 Date of Service: Oct 22, 2024 Billing Provider: MAHESH FOSTER MD Common Visit Codes: [id number] INP/OBS CARE(HIGH) MAHESH FOSTER MD Oct 22, 2024 11:58
--- NOTE | 2024-10-22 13:31 | DVH ---
CHEST RADIOGRAPH Indication: SHORTNESS OF BREATH Technique: Single frontal view of the chest was obtained Comparison: XY CHEST XRAY 1 VIEW on DOS: 10/07/24, XY CHEST PORTABLE on DOS: 10/07/24, XY CHEST PORTABLE on DOS: 10/05/24, XY CHEST TWO VIEWS ROUTINE on DOS: 10/18/24 FINDINGS: There is a moderate- large left pleural effusion with associated left lower lobe atelectasis. There i s a trace right pleural effusion. Cardiomediastinal silhouette is markedly enlarged. There is trace s eptal thickening. Overlying devices. IMPRESSION: 1. Unchanged moderate-large left pleural effusion with enlarged cardiomediastinal silhouette 2. Trace right pleural fusion 3. Trace interstitial edema, unchanged
[2024-10-22] MEDS: ALBUMIN 25% 100 ML IV ONE (14:00)
[2024-10-22] MEDS: POTASSIUM CHLORIDE 40 MEQ, LIDOCAINE 1% (LOCAL ANESTH.) 4 ML in SODIUM CHL 0.9% 250 ML IV ONE (17:30)
--- NOTE | 2024-10-22 23:22 | DVHPN2 ---
Progress Note - Dictate Date Seen: Oct 22, 2024 Medical Necessity Reason Pt with a Central, PICC or Fol: Yes The following are medically ne: Dean Catheter Reason for dean catheter: Strict I&O Subjective Patient was seen and evaluated in follow up. No overnight events. Patient is c/o weakness. K 3.2, BUN 81, Cemetery Keeper 2.24. Telemetry reviewed. vital signs Vital Sign Date Time Temp Pulse Resp B/P (MAP) Pulse Ox O2 Delivery O2 Flow Rate FiO2 10/22/24 21:00 98.3 85 18 104/80 (88) 93 98.3 10/22/24 08:00 Nasal Cannula* 3 32 Total Intake and Output 10/21/24 10/21/24 10/22/24 15:00 23:00 07:00 Intake Total 760 ml 904.77 ml Output Total 1751 ml 1150 ml Balance -991 ml -245.23 ml medications Current Medications Medications Dose Ordered Sig/Nadia Route Start Time Stop Time Status Last Admin Dose Admin Aspirin 81 mg DAILY PO 10/06/24 10:00 10/22/24 09:56 81 MG Ondansetron HCl 4 mg Q4HP PRN IV 10/05/24 20:45 10/14/24 09:45 4 MG Docusate Sodium 100 mg BIDPRN PRN PO 10/05/24 20:45 10/07/24 14:18 100 MG Nitroglycerin 0.4 mg Q5MINP PRN SL 10/05/24 22:30 Amiodarone HCl 200 mg Q12HR PO 10/07/24 15:00 10/22/24 21:09 200 MG Vancomycin HCl 250 ml @ 200 mls/hr Q12H IV 10/08/24 14:00 UNV Midodrine 10 mg TID@0600,1200,1800 PO 10/13/24 12:00 10/22/24 18:30 10 MG Acetaminophen 650 mg Q6HP PRN PO 10/15/24 16:45 10/22/24 18:31 650 MG Potassium Bicarbonate 50 meq DAILY PO 10/17/24 10:00 10/22/24 10:00 50 MEQ Apixaban 2.5 mg BIDPC PO 10/20/24 19:00 10/22/24 09:56 2.5 MG Metolazone 5 mg BIDD PO 10/20/24 18:00 10/22/24 18:31 5 MG Bumetanide 1 mg BIDD IV 10/21/24 11:00 10/22/24 15:04 1 MG Dopamine HCl/ Dextrose 250 ml @ 9.795 mls/ hr Q24H IV 10/21/24 12:30 10/22/24 15:04 9.795 MLS/HR objective GENERAL: Alert and oriented x 3. No acute distress. Morbidly obese. EYES: PERRL, EOMI. Anicteric. HENT: Moist mucous membranes. LUNGS: Diminished breath sounds. CARDIOVASCULAR: Irregular rate and rhythm. ABDOMEN: Soft, nontender and nondistended. EXTREMITIES: +3 pitting edema. NEUROLOGIC: No focal neurological deficits. SKIN: Warm, dry. laboratory and microbiology Laboratory Tests 10/22/24 09:02 10/09/24 04:39 Test 10/22/24 09:02 Range/Units Serum Glucose 171 H 74-106 mg/dL Problem List Atrial fibrillation with rapid ventricular response, newly diagnosed. Left pleural effusion. Sepsis. Hyperkalemia. Acute kidney injury. Transaminitis. Prediabetes. History of alcoholism. Morbidly obese. Severe systolic HF EF 15%, large pleural effusions. Pericardial effusion. Assessment/Plan Continued all current supportive medical care. Amiodarone. Eliquis. Aspirin. Diuretics with Bumex. Additional plan as per the hospital course. Critical care time of 45 minutes provided to include time spent evaluation of patient at bedside, when appropriate patient/family education for diagnosis, treatment plan, review of pertinent medical information and discussion of care with specialty providers and PCP. Dietary Evaluation Review Comments: 1. Refer to CDE on DC for weight management 2. Continue current plan of care Expected Outcomes/Goals: To meet >75% estimated needs Fu 3-5 days Plan discussed with: Patient XIOMY JERONIMO MD Oct 22, 2024 23:22
[2024-10-23] VITALS (8 sets, daily range): BP systolic 92–108; BP diastolic 68–84; PULSE 78–128; RESP 16–20; TEMP 96.8–98; O2SAT 91–97
--- NOTE | 2024-10-23 07:28 | ECG ---
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
--- NOTE | 2024-10-23 07:28 | ECG ---
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
[2024-10-23] MEDS: POTASSIUM EFFERVESENT TAB 25 MEQ PO ONE (09:30)
--- NOTE | 2024-10-23 09:51 | DVH ---
CHEST RADIOGRAPH Indication: POST THORACENTESIS Technique: Single frontal view of the chest was obtained COMPARISON: XY CHEST PORTABLE on DOS: 10/22/24, XY CHEST XRAY 1 VIEW on DOS: 10/07/24, XY CHEST PORTABLE on DOS: 10/07/24, XY CHEST PORTABLE on DOS: 10/05/24 FINDINGS: Lines and Tubes: None Lungs: Clear Pleura: Trace bilateral pleural effusions. No pneumothorax. Cardiomediastinal contours: Cardiomegaly Bones: Unremarkable IMPRESSION: No appreciable pneumothorax post thoracentesis.
[2024-10-23 11:02] LABS: Calcium 9.4 mg/dL (8.7-10.4)
[2024-10-23 11:06] LABS: Anion Gap 9.99999 (5-15); Chloride 82 mmol/L (98-107); Potassium 3.3 mmol/L (3.5-5.1); Sodium 132 mmol/L (136-145)
[2024-10-23 11:07] LABS: BUN/Creatinine Ratio 35.0 (10.0-20.0); Carbon Dioxide > 40 mmol/L (20-31)
--- NOTE | 2024-10-23 11:08 | DVHPN2 ---
Subjective The patient is seen and examined at bedside. Status post thoracocentesis with 1.5 L of fluid removed. Reviewed: Care Plan, H&P, Labs, Medications, Radiology Changes from previous H/P or p: No Changes Eyes: No Pain, No Vision change, No Conjunctivae inflammation, No Eyelid inflammation, No Other, No Redness ENT: No Ear pain, No Ear discharge, No Nose pain, No Nose discharge, No Nose congestion, No Mouth pain, No Mouth swelling, No Throat pain, No Throat swelling, No Other Cardiovascular: No Chest Pain; Palpitations; No Orthopnea, No Paroxysmal Noc. Dyspnea, No Edema, No Lt Headedness, No Other Respiratory: No Cough, No Dry; Shortness of breath; No SOB with excertion, No Wheezing, No Hemoptysis, No Pleuritic Pain, No Sputum, No Other Gastrointestinal: No Nausea, No Vomiting, No Abdominal Pain, No Diarrhea, No Constipation, No Melena, No Hematochezia, No Other Genitourinary: No Dysuria, No Frequency, No Incontinence, No Hematuria, No Retention, No Other Musculoskeletal: No other, No neck pain, No shoulder pain, No arm pain, No back pain, No hand pain, No leg pain, No foot pain Skin: No Rash, No Lesions, No Jaundice, No Bruising, No Other Objective Vitals Vital Signs Date Time Temp Pulse Resp B/P (MAP) Pulse Ox O2 Delivery O2 Flow Rate FiO2 10/23/24 09:00 97.1 116 16 106/81 (89) 95 97.1 10/23/24 08:00 Nasal Cannula* 3 32 Intake/Output Intake and Output 10/23/24 07:00 Intake Total 2400 ml Output Total 3100 ml Balance -700 ml Intake Oral 2300 ml IV Total 100 ml Output Urine Total 3100 ml General Appearance: Alert, Oriented X3, mild distress HEENT: Atraumatic, PERRLA, EOMI, Mucous membr. moist/pink Neck: Supple Lungs: Other (Bilateral rhonchi) Cardiovascular: Regular rate, Normal S1, Normal S2, No murmurs Abdomen: Normal bowel sounds, Soft, No tenderness Extremities: Other (2+ edema B) Neuro: Cranial nerves 3-12 NL Psych/Mental Status: Mental status NL Medications Current Medications Medications Dose Ordered Sig/Nadia Route Start Time Stop Time Status Last Admin Dose Admin Aspirin 81 mg DAILY PO 10/06/24 10:00 10/23/24 10:50 81 MG Ondansetron HCl 4 mg Q4HP PRN IV 10/05/24 20:45 10/14/24 09:45 4 MG Docusate Sodium 100 mg BIDPRN PRN PO 10/05/24 20:45 10/07/24 14:18 100 MG Nitroglycerin 0.4 mg Q5MINP PRN SL 10/05/24 22:30 Amiodarone HCl 200 mg Q12HR PO 10/07/24 15:00 10/23/24 10:49 200 MG Vancomycin HCl 250 ml @ 200 mls/hr Q12H IV 10/08/24 14:00 UNV Midodrine 10 mg TID@0600,1200,1800 PO 10/13/24 12:00 10/23/24 06:02 10 MG Acetaminophen 650 mg Q6HP PRN PO 10/15/24 16:45 10/23/24 06:18 650 MG Potassium Bicarbonate 50 meq DAILY PO 10/17/24 10:00 10/23/24 10:50 50 MEQ Metolazone 5 mg BIDD PO 10/20/24 18:00 10/23/24 06:02 5 MG Bumetanide 1 mg BIDD IV 10/21/24 11:00 10/23/24 06:03 1 MG Dopamine HCl/ Dextrose 250 ml @ 9.795 mls/ hr Q24H IV 10/21/24 12:30 10/22/24 15:04 9.795 MLS/HR Laboratory Results Laboratory Tests 10/09/24 04:39 10/23/24 10:30 Chemistry Test 10/23/24 10:30 Calcium Level 9.4 mg/dL (8.7-10.4) Cardiac Markers Test 10/23/24 10:30 B-Type Natriuretic Peptide Pending Urinalysis Test 10/05/24 18:45 10/06/24 17:49 Urine Color Yellow (Yellow) Urine Clarity Clear (Clear) Urine pH 6.0 (5.0-9.0) Urine Specific [place] 1.031 (1.001-1.035) Urine Protein 2+ (Negative) H Urine Ketones Negative (Negative) Urine Blood Negative /uL (Negative) Urine Nitrite Negative (Negative) Urine Bilirubin Negative (Negative) Urine Urobilinogen 3 mg/dL (Negative) H Urine Leukocyte Esterase Negative /uL (Negative) Urine RBC 2 /hpf (0 - 3) Urine Microscopic WBC 8 /HPF (0-3) H Urine Squamous Epithelial Cells Few /hpf (<5) Urine Bacteria Few /hpf (None Seen) H Urine Hyaline Casts Few /lpf (0 - 2) Urine Mucus Few (None Seen) Urine Glucose Trace mg/dL (Normal) Urine Creatinine 97.15 mg/dL (30.0-125.0) Urine Sodium < 10 mmol/L (40-220) L Urine Total Protein 84.0 mg/dL (1-14) H Microbiology Microbiology Date/Time Source Procedure Growth Status 10/07/24 14:06 Pleural Fluid Gram Stain - Final Complete 10/07/24 14:06 Pleural Fluid Body Fluid Culture - Final Complete 10/06/24 12:31 Nose MRSA Screen - Final Complete 10/05/24 19:19 Blood Blood Culture - Final NO GROWTH AFTER 5 DAYS OF INCUBATION. Complete Labs and/or images reviewed: Labs reviewed by me Assessment/Plan Assessment/Plan Acute CHF exacerbation with systolic dysfunction AFib with RVR , currently rate controlled Left-sided pleural effusion status post thoracentesis Acute kidney injury suspected secondary to vasomotor nephropathy Cardiomyopathy with EF of 15% History of alcoholism Morbid obesity class I Hypotension Pericardial effusion PLAN: Continuing current management. Continuing with Bumex,metoprolol , midodrine, aspirin, digoxin, and oxygen. Continue with dopamine Continue with LifeVest. Continuing with Eliquis. I discussed with the patient regarding to his tiredness. Explained to him that he had cardiomyopathy with EF of 15%. The dobutamine and dopamine actually will help his heart and his kidney function. With his weakness we continuing physical therapy and hopefully he can improve. Continue current care. Encourage the patient to work with physical therapy to be out of bed and ambulate This medical document was created using an electronic medical record system with [employer] direct computerized dictation system. Although this document has been carefully reviewed, there may still be some phonetic and typographical errors. These areas are purely typographical due to imperfections of the software programs, and do not reflect any compromise in the patient's medical care. Plan discussed with: Patient My Orders Orders - MAHESH FOSTER MD Procedure Category Date Status Time Thoracentesis US 10/23/24 Taken 07:39 Date of Service: Oct 23, 2024 Billing Provider: MAHESH FOSTER MD Common Visit Codes: [id number] INP/OBS CARE(HIGH) MAHESH FOSTER MD Oct 23, 2024 11:08
[2024-10-23 11:09] LABS: Blood Urea Nitrogen 75 mg/dL (9-23); Glucose 155 mg/dL (74-106)
--- NOTE | 2024-10-23 11:37 | DVHPN2 ---
Progress Note Date Seen: Oct 23, 2024 Medical Necessity Reason Pt with a Central, PICC or Fol: Yes The following are medically ne: Dean Catheter Reason for dean catheter: Strict I&O Subjective Review of Systems: RESPIRATORY:Abnormal Other Systems: Patient seen and examined by myself today in follow-up, O2 nasal Objective vital signs Vital Sign Date Time Temp Pulse Resp B/P (MAP) Pulse Ox O2 Delivery O2 Flow Rate FiO2 10/23/24 09:00 97.1 116 16 106/81 (89) 95 97.1 10/23/24 08:00 Nasal Cannula* 3 32 Total Intake and Output 10/22/24 10/22/24 10/23/24 15:00 23:00 07:00 Intake Total 2000 ml 400 ml Output Total 1600 ml 1500 ml Balance 400 ml -1100 ml medications Current Medications Medications Dose Ordered Sig/Nadia Route Start Time Stop Time Status Last Admin Dose Admin Aspirin 81 mg DAILY PO 10/06/24 10:00 10/23/24 10:50 81 MG Ondansetron HCl 4 mg Q4HP PRN IV 10/05/24 20:45 10/14/24 09:45 4 MG Docusate Sodium 100 mg BIDPRN PRN PO 10/05/24 20:45 10/07/24 14:18 100 MG Nitroglycerin 0.4 mg Q5MINP PRN SL 10/05/24 22:30 Amiodarone HCl 200 mg Q12HR PO 10/07/24 15:00 10/23/24 10:49 200 MG Vancomycin HCl 250 ml @ 200 mls/hr Q12H IV 10/08/24 14:00 UNV Midodrine 10 mg TID@0600,1200,1800 PO 10/13/24 12:00 10/23/24 06:02 10 MG Acetaminophen 650 mg Q6HP PRN PO 10/15/24 16:45 10/23/24 06:18 650 MG Potassium Bicarbonate 50 meq DAILY PO 10/17/24 10:00 10/23/24 10:50 50 MEQ Metolazone 5 mg BIDD PO 10/20/24 18:00 10/23/24 06:02 5 MG Bumetanide 1 mg BIDD IV 10/21/24 11:00 10/23/24 06:03 1 MG Dopamine HCl/ Dextrose 250 ml @ 9.795 mls/ hr Q24H IV 10/21/24 12:30 10/22/24 15:04 9.795 MLS/HR Examination: LUNGS:Normal, CVS:Normal, MSK:Normal laboratory and microbiology Laboratory Tests 10/23/24 10:30 10/09/24 04:39 Test 10/23/24 10:30 Range/Units Serum Glucose 155 H 74-106 mg/dL Microbiology Date/Time Source Procedure Growth Status 10/07/24 14:06 Pleural Fluid Gram Stain - Final Complete 10/07/24 14:06 Pleural Fluid Body Fluid Culture - Final Complete 10/06/24 12:31 Nose MRSA Screen - Final Complete 10/05/24 19:19 Blood Blood Culture - Final NO GROWTH AFTER 5 DAYS OF INCUBATION. Complete Problem List/Assessment/Plan Problem List/Assessment/Plan Acute kidney injury superimposed Chronic Kidney Disease secondary hemodynamic mediated, feNa < 1% Acute respiratory failure, O2 nasal cannula severe systolic HF EF 15%, pericardial effusion Left pleural effusion afib RVR Hyponatremia due to excess H2O Hypokalemic metabolic alkalosis due to aggressive diuresis Recommendations Kidney function slightly improving Increased urine output Strict I&O's Decrease Bumex to 1 mg IV b.i.d. Low-dose dopamine Thoracentesis KCL replacement Fluid restriction Renal diet We will continue to follow up Plan discussed with: Patient Dietary Evaluation Review Comments: 1. Refer to CDE on DC for weight management 2. Continue current plan of care Expected Outcomes/Goals: To meet >75% estimated needs Fu 3-5 days MARCELINA MESA MD Oct 23, 2024 11:37
--- NOTE | 2024-10-23 12:13 | DVH ---
US THORACENTESIS, HISTORY: LT PLEURAL EFFUSION PROCEDURE: Informed consent was obtained. The patient was seated on the bed. A limited localization u ltrasound of the left thorax was obtained, and the optimal approach was marked on the skin. The area was prepped with chlorhexidine which was allowed to dry and draped in the usual sterile fashion. Time out was performed. The skin and the soft tissues were infiltrated with 1% lidocaine. A 5.5 [place] ce ntesis needle catheter was advanced into left pleural space. Following aspiration of fluid, the richar ter was advanced and the needle removed. About 1500 cc of fluid was drained. No immediate complicati on was identified. FINDINGS: Moderate to large right pleural effusion. Aspirated fluid is clear and serous. IMPRESSION: Successful left thoracentesis with 1.5L removed.
[2024-10-23] MEDS: Nepro With Carbsteady ButterPecan 8oz Carton PO SCH (17:42)
[2024-10-23] MEDS ORDERED: Ensure HIGH Protein Chocolate 8oz Bottle PO SCH (18:00)
--- NOTE | 2024-10-23 23:55 | DVHPN2 ---
Progress Note - Dictate Date Seen: Oct 23, 2024 Medical Necessity Reason Pt with a Central, PICC or Fol: Yes The following are medically ne: Dean Catheter Reason for dean catheter: Strict I&O Subjective Patient was seen and evaluated in follow up. Patient is on 3 LPM NC. Patient is complaining of weakness and SOB. K 3.3, CO2 >40, BUN 75, Recreation Aide 2.14. Patient underwent successful left thoracentesis with 1.5L removed. Telemetry reviewed. vital signs Vital Sign Date Time Temp Pulse Resp B/P (MAP) Pulse Ox O2 Delivery O2 Flow Rate FiO2 10/23/24 21:00 97.4 95 16 96/68 (77) 92 97.4 10/23/24 20:00 Nasal Cannula* 3 32 Total Intake and Output 10/22/24 10/22/24 10/23/24 15:00 23:00 07:00 Intake Total 2000 ml 400 ml Output Total 1600 ml 1500 ml Balance 400 ml -1100 ml medications Current Medications Medications Dose Ordered Sig/Nadia Route Start Time Stop Time Status Last Admin Dose Admin Aspirin 81 mg DAILY PO 10/06/24 10:00 10/23/24 10:50 81 MG Ondansetron HCl 4 mg Q4HP PRN IV 10/05/24 20:45 10/14/24 09:45 4 MG Docusate Sodium 100 mg BIDPRN PRN PO 10/05/24 20:45 10/07/24 14:18 100 MG Nitroglycerin 0.4 mg Q5MINP PRN SL 10/05/24 22:30 Amiodarone HCl 200 mg Q12HR PO 10/07/24 15:00 10/23/24 21:23 200 MG Vancomycin HCl 250 ml @ 200 mls/hr Q12H IV 10/08/24 14:00 UNV Midodrine 10 mg TID@0600,1200,1800 PO 10/13/24 12:00 10/23/24 17:42 10 MG Acetaminophen 650 mg Q6HP PRN PO 10/15/24 16:45 10/23/24 21:29 650 MG Potassium Bicarbonate 50 meq DAILY PO 10/17/24 10:00 10/23/24 10:50 50 MEQ Metolazone 5 mg BIDD PO 10/20/24 18:00 10/23/24 17:42 5 MG Bumetanide 1 mg BIDD IV 10/21/24 11:00 10/23/24 17:41 1 MG Dopamine HCl/ Dextrose 250 ml @ 9.795 mls/ hr Q24H IV 10/21/24 12:30 10/23/24 13:11 9.795 MLS/HR Enteral Nutritional Formula 240 ml BIDWM PO 10/23/24 18:00 10/23/24 17:42 240 ML objective GENERAL: Alert and oriented x 3. No acute distress. Morbidly obese. EYES: PERRL, EOMI. Anicteric. HENT: Moist mucous membranes. LUNGS: Diminished breath sounds. CARDIOVASCULAR: Irregular rate and rhythm. ABDOMEN: Soft, nontender and nondistended. EXTREMITIES: +3 pitting edema. NEUROLOGIC: No focal neurological deficits. SKIN: Warm, dry. laboratory and microbiology Laboratory Tests 10/23/24 10:30 10/09/24 04:39 Test 10/23/24 10:30 Range/Units Serum Glucose 155 H 74-106 mg/dL Problem List Atrial fibrillation with rapid ventricular response, newly diagnosed. Left pleural effusion. Sepsis. Hyperkalemia. Acute kidney injury. Transaminitis. Prediabetes. History of alcoholism. Morbidly obese. Severe systolic HF EF 15%, large pleural effusions. Pericardial effusion. Assessment/Plan Continued all current supportive medical care. Amiodarone. Aspirin. Diuretics with Bumex. Dopamine drip. Midodrine. Nitro SL. Additional plan as per the hospital course. Dietary Evaluation Review Comments: 1. Refer to CDE on DC for weight management 2. Continue current plan of care Expected Outcomes/Goals: To meet >75% estimated needs Fu 3-5 days Plan discussed with: Patient XIOMY JERONIMO MD Oct 23, 2024 23:55
[2024-10-24] VITALS (8 sets, daily range): BP systolic 97–115; BP diastolic 67–87; PULSE 78–89; RESP 14–20; TEMP 97.3–97.8; O2SAT 90–94
[2024-10-24 06:53] LABS: Calcium 9.3 mg/dL (8.7-10.4)
[2024-10-24 06:57] LABS: BUN/Creatinine Ratio 34.6 (10.0-20.0)
[2024-10-24 06:59] LABS: Anion Gap 11.99999 (5-15); Blood Urea Nitrogen 75 mg/dL (9-23); Chloride 79 mmol/L (98-107); Glucose 228 mg/dL (74-106); Potassium 2.8 mmol/L (3.5-5.1); Sodium 131 mmol/L (136-145)
[2024-10-24 07:00] LABS: Carbon Dioxide > 40 mmol/L (20-31)
[2024-10-24 07:26] LABS: Hematocrit 47.4 % (41.0-53.0); Hemoglobin 15.7 g/dL (13.5-17.5); Mean Corpuscular Hemoglobin 29.6 pg (28.0-32.0); Mean Corpuscular Volume 89.6 fL (80.0-100.0)
[2024-10-24 08:54] LABS: Total Cells Counted 100.0 (100)
[2024-10-24] MEDS: POTASSIUM EFFERVESENT TAB 25 MEQ PO SCH (10:30)
[2024-10-24] MEDS: POTASSIUM CHL 20MEQ/100ML 100 ML IV SCH (11:26)
--- NOTE | 2024-10-24 12:24 | DVHPN2 ---
Progress Note Date Seen: Oct 24, 2024 Medical Necessity Reason Pt with a Central, PICC or Fol: Yes The following are medically ne: Dean Catheter Reason for dean catheter: Strict I&O Subjective Patient reports: No new complaints Review of Systems: MSK:Abnormal Other Systems: Patient seen and examined by myself today in follow-up Objective vital signs Vital Sign Date Time Temp Pulse Resp B/P (MAP) Pulse Ox O2 Delivery O2 Flow Rate FiO2 10/24/24 09:30 97.8 78 20 101/73 (82) 91 97.8 10/24/24 08:00 Nasal Cannula* 3 32 Total Intake and Output 10/23/24 10/23/24 10/24/24 15:00 23:00 07:00 Intake Total 480 ml 450 ml Output Total 1175 ml 950 ml Balance -695 ml -500 ml medications Current Medications Medications Dose Ordered Sig/Nadia Route Start Time Stop Time Status Last Admin Dose Admin Aspirin 81 mg DAILY PO 10/06/24 10:00 10/23/24 10:50 81 MG Ondansetron HCl 4 mg Q4HP PRN IV 10/05/24 20:45 10/14/24 09:45 4 MG Docusate Sodium 100 mg BIDPRN PRN PO 10/05/24 20:45 10/07/24 14:18 100 MG Nitroglycerin 0.4 mg Q5MINP PRN SL 10/05/24 22:30 Amiodarone HCl 200 mg Q12HR PO 10/07/24 15:00 10/24/24 10:13 200 MG Vancomycin HCl 250 ml @ 200 mls/hr Q12H IV 10/08/24 14:00 UNV Midodrine 10 mg TID@0600,1200,1800 PO 10/13/24 12:00 10/24/24 11:40 10 MG Acetaminophen 650 mg Q6HP PRN PO 10/15/24 16:45 10/23/24 21:29 650 MG Potassium Bicarbonate 50 meq DAILY PO 10/17/24 10:00 10/24/24 10:13 50 MEQ Bumetanide 1 mg BIDD IV 10/21/24 11:00 10/24/24 05:39 1 MG Dopamine HCl/ Dextrose 250 ml @ 9.795 mls/ hr Q24H IV 10/21/24 12:30 10/23/24 13:11 9.795 MLS/HR Enteral Nutritional Formula 240 ml BIDWM PO 10/23/24 18:00 10/24/24 08:47 240 ML Potassium Bicarbonate 50 meq Q4HR PO 10/24/24 10:30 10/24/24 18:01 Potassium Chloride 100 ml @ 50 mls/hr Q2H IV 10/24/24 10:30 10/24/24 14:29 10/24/24 12:17 50 MLS/HR Examination: LUNGS:Normal, CVS:Normal, MSK:Abnormal laboratory and microbiology Laboratory Tests 10/24/24 05:57 Test 10/24/24 05:57 Range/Units Serum Glucose 228 H 74-106 mg/dL Microbiology Date/Time Source Procedure Growth Status 10/07/24 14:06 Pleural Fluid Gram Stain - Final Complete 10/07/24 14:06 Pleural Fluid Body Fluid Culture - Final Complete 10/06/24 12:31 Nose MRSA Screen - Final Complete 10/05/24 19:19 Blood Blood Culture - Final NO GROWTH AFTER 5 DAYS OF INCUBATION. Complete Problem List/Assessment/Plan Problem List/Assessment/Plan Acute kidney injury superimposed Chronic Kidney Disease secondary hemodynamic mediated, feNa < 1% Acute respiratory failure, O2 nasal cannula severe systolic HF EF 15%, pericardial effusion Left pleural effusion afib RVR Hyponatremia due to excess H2O Hypokalemic metabolic alkalosis due to aggressive diuresis Recommendations Kidney function slightly improving Increased urine output Strict I&O's Decrease Bumex to 1 mg IV twice daily Discontinue metolazone due to hyponatremia Low-dose dopamine Thoracentesis KCL replacement Fluid restriction Renal diet We will continue to follow up Plan discussed with: Patient My Orders My Orders Orders - MARCELINA MESA MD Procedure Category Date Status Time Potassium Effervesent PHA 10/24/24 In Process Tab (Klor-Con/Ef) 10:30 Potassium Chl PHA 10/24/24 In Process 20meq/100ml 10:30 Dietary Evaluation Review Comments: 1. Refer to CDE on DC for weight management 2. Continue current plan of care Expected Outcomes/Goals: To meet >75% estimated needs Fu 3-5 days MARCELINA MESA MD Oct 24, 2024 12:24
[2024-10-24 13:08] LABS: Glucose, Body Fluid 151.0 mg/dL (.); LD, Body Fluid 532.0 IU/L (.)
--- NOTE | 2024-10-24 13:09 | DVHINCON2 ---
GI Consult Consult Note GI consult note Date of Consultation:10/24/2024 Chief Complaint:?blood seen in throat w abd pain Referring Physician:Dr Knight H&P: 64-year-old male admitted from 10/05/2024 for shortness of breath. Patient diagnosed with atrial fibrillation Patient is still complaining of feeling weakness. Patient has nausea for the past four days, one episode of vomiting, no vomiting at this time. Denies hematemesis. No melena or red blood in stool. No EGD or colonoscopy in past Patient has more pronounced gag reflex especially with medications, and has also noticed difficulty swallowing with certain types of foods mostly chicken Patient denies abdominal pain at this time Past Medical History: Neuropathy Past Surgical History: Left knee surgery, Belly button surgery Social History: NO smoking, drinking ETOH and use of illegal drugs. Family History: Noncontributory Review of Systems: Constitutional: Weakness HEENT: no eye pain, no hearing loss, no oral lesion, no scleral icterus Heart: Palpitations Lung: Shortness of breath Abdomen: see HPI : Red blood with urine Physical exam: General: NAD, AAOX3 Chest: lung ortiz clear to auscultation Heart: RRR, no murmur Abdomen: no tenderness to palpation, +BS Labs: Test 10/24/24 05:57 Range/Units Serum Glucose 228 H 74-106 mg/dL Microbiology Date/Time Source Procedure Growth Status 10/07/24 14:06 Pleural Fluid Gram Stain - Final Complete 10/07/24 14:06 Pleural Fluid Body Fluid Culture - Final Complete 10/06/24 12:31 Nose MRSA Screen - Final Complete 10/05/24 19:19 Blood Blood Culture - Final NO GROWTH AFTER 5 DAYS OF INCUBATION. Complete Imaging: Assessment: Dysphagia Nausea AFib Acute CHF History of alcoholism Pericardial effusion Plan: -discussed with Dr. Velazquez Conservative management recommended at this time Barium swallow esophagram for dysphagia Continue with Mariella We will continue to follow patient Plan discussed with patient, family at bedside and RN Thank you for this consult Date of Service: Oct 24, 2024 Billing Provider: GREGORY CAPUTO Common Visit Codes: CONSULT ONLY Consultation Codes: [id number] CONSULT <60MIN GREGORY CAPUTO Oct 24, 2024 13:09
--- NOTE | 2024-10-24 13:59 | DVHPN2 ---
Subjective covering per patient worsening swelling. net -1L per day. followed by renal. s/p rafa yest. o2 recs remains the same Reviewed: Care Plan, H&P, Labs, Medications, Radiology Changes from previous H/P or p: No Changes Eyes: No Pain, No Vision change, No Conjunctivae inflammation, No Eyelid inflammation, No Other, No Redness ENT: No Ear pain, No Ear discharge, No Nose pain, No Nose discharge, No Nose congestion, No Mouth pain, No Mouth swelling, No Throat pain, No Throat swelling, No Other Cardiovascular: No Chest Pain; Palpitations; No Orthopnea, No Paroxysmal Noc. Dyspnea, No Edema, No Lt Headedness, No Other Respiratory: No Cough, No Dry; Shortness of breath; No SOB with excertion, No Wheezing, No Hemoptysis, No Pleuritic Pain, No Sputum, No Other Gastrointestinal: No Nausea, No Vomiting, No Abdominal Pain, No Diarrhea, No Constipation, No Melena, No Hematochezia, No Other Genitourinary: No Dysuria, No Frequency, No Incontinence, No Hematuria, No Retention, No Other Musculoskeletal: No other, No neck pain, No shoulder pain, No arm pain, No back pain, No hand pain, No leg pain, No foot pain Skin: No Rash, No Lesions, No Jaundice, No Bruising, No Other Objective Vitals Vital Signs Date Time Temp Pulse Resp B/P (MAP) Pulse Ox O2 Delivery O2 Flow Rate FiO2 10/24/24 09:30 97.8 78 20 101/73 (82) 91 97.8 10/24/24 08:00 Nasal Cannula* 3 32 Intake/Output Intake and Output 10/24/24 07:00 Intake Total 930 ml Output Total 2125 ml Balance -1195 ml Intake Oral 730 ml IV Total 200 ml Output Urine Total 2125 ml # Bowel Movements 2 General Appearance: Alert, Oriented X3, mild distress HEENT: Atraumatic, PERRLA, EOMI, Mucous membr. moist/pink Neck: Supple Lungs: Other (Bilateral rhonchi) Cardiovascular: Regular rate, Normal S1, Normal S2, No murmurs Abdomen: Normal bowel sounds, Soft, No tenderness Extremities: Other (2+ edema B) Neuro: Cranial nerves 3-12 NL Psych/Mental Status: Mental status NL Medications Current Medications Medications Dose Ordered Sig/Nadia Route Start Time Stop Time Status Last Admin Dose Admin Aspirin 81 mg DAILY PO 10/06/24 10:00 10/23/24 10:50 81 MG Ondansetron HCl 4 mg Q4HP PRN IV 10/05/24 20:45 10/14/24 09:45 4 MG Docusate Sodium 100 mg BIDPRN PRN PO 10/05/24 20:45 10/07/24 14:18 100 MG Nitroglycerin 0.4 mg Q5MINP PRN SL 10/05/24 22:30 Amiodarone HCl 200 mg Q12HR PO 10/07/24 15:00 10/24/24 10:13 200 MG Vancomycin HCl 250 ml @ 200 mls/hr Q12H IV 10/08/24 14:00 UNV Midodrine 10 mg TID@0600,1200,1800 PO 10/13/24 12:00 10/24/24 11:40 10 MG Acetaminophen 650 mg Q6HP PRN PO 10/15/24 16:45 10/24/24 12:23 650 MG Potassium Bicarbonate 50 meq DAILY PO 10/17/24 10:00 10/24/24 10:13 50 MEQ Bumetanide 1 mg BIDD IV 10/21/24 11:00 10/24/24 05:39 1 MG Dopamine HCl/ Dextrose 250 ml @ 9.795 mls/ hr Q24H IV 10/21/24 12:30 10/23/24 13:11 9.795 MLS/HR Enteral Nutritional Formula 240 ml BIDWM PO 10/23/24 18:00 10/24/24 08:47 240 ML Potassium Bicarbonate 50 meq Q4HR PO 10/24/24 10:30 10/24/24 18:01 Potassium Chloride 100 ml @ 50 mls/hr Q2H IV 10/24/24 10:30 10/24/24 14:29 10/24/24 12:17 50 MLS/HR Laboratory Results Laboratory Tests 10/24/24 05:57 Chemistry Test 10/24/24 05:57 Calcium Level 9.3 mg/dL (8.7-10.4) Cardiac Markers Test 10/24/24 05:57 B-Type Natriuretic Peptide 55.59 pg/mL (0-100) Urinalysis Test 10/05/24 18:45 10/06/24 17:49 Urine Color Yellow (Yellow) Urine Clarity Clear (Clear) Urine pH 6.0 (5.0-9.0) Urine Specific Warren 1.031 (1.001-1.035) Urine Protein 2+ (Negative) H Urine Ketones Negative (Negative) Urine Blood Negative /uL (Negative) Urine Nitrite Negative (Negative) Urine Bilirubin Negative (Negative) Urine Urobilinogen 3 mg/dL (Negative) H Urine Leukocyte Esterase Negative /uL (Negative) Urine RBC 2 /hpf (0 - 3) Urine Microscopic WBC 8 /HPF (0-3) H Urine Squamous Epithelial Cells Few /hpf (<5) Urine Bacteria Few /hpf (None Seen) H Urine Hyaline Casts Few /lpf (0 - 2) Urine Mucus Few (None Seen) Urine Glucose Trace mg/dL (Normal) Urine Creatinine 97.15 mg/dL (30.0-125.0) Urine Sodium < 10 mmol/L (40-220) L Urine Total Protein 84.0 mg/dL (1-14) H Microbiology Microbiology Date/Time Source Procedure Growth Status 10/23/24 11:25 Pleural Fluid Gram Stain - Final Resulted 10/23/24 11:25 Pleural Fluid Aerobic Culture - Preliminary Resulted 10/06/24 12:31 Nose MRSA Screen - Final Complete 10/05/24 19:19 Blood Blood Culture - Final NO GROWTH AFTER 5 DAYS OF INCUBATION. Complete Assessment/Plan Assessment/Plan Acute CHF exacerbation with systolic dysfunction AFib with RVR , currently rate controlled Left-sided pleural effusion status post thoracentesis Acute kidney injury suspected secondary to vasomotor nephropathy Cardiomyopathy with EF of 15% History of alcoholism Morbid obesity class I Hypotension Pericardial effusion PLAN: Continuing current management. Continuing with Bumex,metoprolol , midodrine, aspirin, digoxin, and oxygen. Continue with dopamine - have ectopies, if persist will dc Continue with LifeVest. Continuing with Eliquis. I discussed with the patient regarding to his tiredness. Explained to him that he had cardiomyopathy with EF of 15%. The dobutamine and dopamine actually will help his heart and his kidney function. With his weakness we continuing physical therapy and hopefully he can improve. Continue current care. Encourage the patient to work with physical therapy to be out of bed and ambulate Plan discussed with: Patient Date of Service: Oct 24, 2024 Billing Provider: IDALMIS DIAZ MD Common Visit Codes: [id number] INP/OBS CARE(HIGH) IDALMIS DIAZ MD Oct 24, 2024 13:59
[2024-10-24] MEDS: EZ PAQUE SUSP 12OZ BTL ONE (14:19)
--- NOTE | 2024-10-24 16:13 | DVH ---
XY ESOPHAGUS BARIUM SWALLOW, HISTORY: difficulty swallowing COMPARISON: None PROCEDURE: Barium administered orally, and radiographs were obtained under intermittent fluoroscop ic observation. Total fluoroscopic time was 0.3 minutes. FINDINGS: The esophagus was normal in caliber with no stricture, filling defect or wall irregularity demonstrat ed. Normal esophageal peristalsis was observed. IMPRESSION: Unremarkable esophagram.
--- NOTE | 2024-10-24 21:34 | DVHPN2 ---
Progress Note - Dictate Date Seen: Oct 24, 2024 Medical Necessity Reason Pt with a Central, PICC or Fol: Yes The following are medically ne: Dean Catheter Reason for dean catheter: Strict I&O Subjective Patient was seen and evaluated in follow up. Patient is on 3 LPM NC. Patient reports worsening swelling. WBC 15, NA 131, K 2.8, CL 79, CO2 > 40, BUN 75, RADIATION PROTECTION TECHNICIAN 2.17, GLUC 228. Barium swallow was unremarkable. Telemetry reviewed. vital signs Vital Sign Date Time Temp Pulse Resp B/P (MAP) Pulse Ox O2 Delivery O2 Flow Rate FiO2 10/24/24 09:30 97.8 78 20 101/73 (82) 91 97.8 10/24/24 08:00 Nasal Cannula* 3 32 Total Intake and Output 10/23/24 10/23/24 10/24/24 15:00 23:00 07:00 Intake Total 480 ml 450 ml Output Total 1175 ml 950 ml Balance -695 ml -500 ml medications Current Medications Medications Dose Ordered Sig/Nadia Route Start Time Stop Time Status Last Admin Dose Admin Aspirin 81 mg DAILY PO 10/06/24 10:00 10/23/24 10:50 81 MG Ondansetron HCl 4 mg Q4HP PRN IV 10/05/24 20:45 10/14/24 09:45 4 MG Docusate Sodium 100 mg BIDPRN PRN PO 10/05/24 20:45 10/07/24 14:18 100 MG Nitroglycerin 0.4 mg Q5MINP PRN SL 10/05/24 22:30 Amiodarone HCl 200 mg Q12HR PO 10/07/24 15:00 10/24/24 10:13 200 MG Vancomycin HCl 250 ml @ 200 mls/hr Q12H IV 10/08/24 14:00 UNV Midodrine 10 mg TID@0600,1200,1800 PO 10/13/24 12:00 10/24/24 11:40 10 MG Acetaminophen 650 mg Q6HP PRN PO 10/15/24 16:45 10/24/24 12:23 650 MG Potassium Bicarbonate 50 meq DAILY PO 10/17/24 10:00 10/24/24 10:13 50 MEQ Bumetanide 1 mg BIDD IV 10/21/24 11:00 10/24/24 05:39 1 MG Dopamine HCl/ Dextrose 250 ml @ 9.795 mls/ hr Q24H IV 10/21/24 12:30 10/23/24 13:11 9.795 MLS/HR Enteral Nutritional Formula 240 ml BIDWM PO 10/23/24 18:00 10/24/24 08:47 240 ML Potassium Bicarbonate 50 meq Q4HR PO 10/24/24 10:30 10/24/24 18:01 Potassium Chloride 100 ml @ 50 mls/hr Q2H IV 10/24/24 10:30 10/24/24 14:29 10/24/24 12:17 50 MLS/HR objective GENERAL: Alert and oriented x 3. No acute distress. Morbidly obese. EYES: PERRL, EOMI. Anicteric. HENT: Moist mucous membranes. LUNGS: Diminished breath sounds. CARDIOVASCULAR: Irregular rate and rhythm. ABDOMEN: Soft, nontender and nondistended. EXTREMITIES: +3 pitting edema. NEUROLOGIC: No focal neurological deficits. SKIN: Warm, dry. laboratory and microbiology Laboratory Tests 10/24/24 05:57 Test 10/24/24 05:57 Range/Units Serum Glucose 228 H 74-106 mg/dL Problem List Atrial fibrillation with rapid ventricular response, newly diagnosed. Left pleural effusion. Sepsis. Hyperkalemia. Acute kidney injury. Transaminitis. Prediabetes. History of alcoholism. Morbidly obese. Severe systolic HF EF 15%, large pleural effusions. Pericardial effusion. Assessment/Plan Continued all current supportive medical care. Amiodarone. Aspirin. Diuretics with Bumex. Dopamine drip. Midodrine. Nitro SL. Additional plan as per the hospital course. Dietary Evaluation Review Comments: 1. Refer to CDE on DC for weight management 2. Continue current plan of care Expected Outcomes/Goals: To meet >75% estimated needs Fu 3-5 days Plan discussed with: Patient XIOMY JERONIMO MD Oct 24, 2024 13:21
[2024-10-25] VITALS (8 sets, daily range): BP systolic 96–120; BP diastolic 66–79; PULSE 75–89; RESP 18–20; TEMP 94.7–98.2; O2SAT 91–96
[2024-10-25 07:56] LABS: Calcium 10.0 mg/dL (8.7-10.4)
[2024-10-25 08:01] LABS: BUN/Creatinine Ratio 29.4 (10.0-20.0)
[2024-10-25 08:02] LABS: Anion Gap 11.99999 (5-15); Blood Urea Nitrogen 60 mg/dL (9-23); Chloride 78 mmol/L (98-107); Glucose 212 mg/dL (74-106); Potassium 3.0 mmol/L (3.5-5.1); Sodium 130 mmol/L (136-145)
[2024-10-25 08:04] LABS: Carbon Dioxide > 40 mmol/L (20-31)
--- NOTE | 2024-10-25 14:17 | DVHPN2 ---
Progress Note Date Seen: Oct 25, 2024 Medical Necessity Reason Pt with a Central, PICC or Fol: Yes The following are medically ne: Dean Catheter Reason for dean catheter: Strict I&O Subjective Patient reports: No new complaints Other Systems: Patient seen and examined by myself today in follow-up Objective vital signs Vital Sign Date Time Temp Pulse Resp B/P (MAP) Pulse Ox O2 Delivery O2 Flow Rate FiO2 10/25/24 09:00 96.4 75 20 96/69 (78) 91 96.4 10/25/24 08:00 Nasal Cannula* 3 32 Total Intake and Output 10/24/24 10/24/24 10/25/24 15:00 23:00 07:00 Intake Total 100 ml 660 ml 408.36 ml Output Total 1200 ml 1950 ml Balance 100 ml -540 ml -1541.64 ml medications Current Medications Medications Dose Ordered Sig/Nadia Route Start Time Stop Time Status Last Admin Dose Admin Aspirin 81 mg DAILY PO 10/06/24 10:00 10/23/24 10:50 81 MG Ondansetron HCl 4 mg Q4HP PRN IV 10/05/24 20:45 10/25/24 08:29 4 MG Docusate Sodium 100 mg BIDPRN PRN PO 10/05/24 20:45 10/07/24 14:18 100 MG Nitroglycerin 0.4 mg Q5MINP PRN SL 10/05/24 22:30 Amiodarone HCl 200 mg Q12HR PO 10/07/24 15:00 10/25/24 09:57 200 MG Vancomycin HCl 250 ml @ 200 mls/hr Q12H IV 10/08/24 14:00 UNV Midodrine 10 mg TID@0600,1200,1800 PO 10/13/24 12:00 10/25/24 12:18 10 MG Acetaminophen 650 mg Q6HP PRN PO 10/15/24 16:45 10/25/24 11:18 650 MG Potassium Bicarbonate 50 meq DAILY PO 10/17/24 10:00 10/25/24 09:57 50 MEQ Bumetanide 1 mg BIDD IV 10/21/24 11:00 10/25/24 05:13 1 MG Dopamine HCl/ Dextrose 250 ml @ 9.795 mls/ hr Q24H IV 10/21/24 12:30 10/24/24 21:12 9.795 MLS/HR Enteral Nutritional Formula 240 ml BIDWM PO 10/23/24 18:00 10/24/24 18:20 240 ML Examination: LUNGS:Normal, CVS:Normal, MSK:Normal laboratory and microbiology Laboratory Tests 10/25/24 05:50 10/24/24 05:57 Test 10/25/24 05:50 Range/Units Serum Glucose 212 H 74-106 mg/dL Microbiology Date/Time Source Procedure Growth Status 10/23/24 11:25 Pleural Fluid Gram Stain - Final Resulted 10/23/24 11:25 Pleural Fluid Aerobic Culture - Preliminary Resulted 10/06/24 12:31 Nose MRSA Screen - Final Complete 10/05/24 19:19 Blood Blood Culture - Final NO GROWTH AFTER 5 DAYS OF INCUBATION. Complete Problem List/Assessment/Plan Problem List/Assessment/Plan Acute kidney injury superimposed Chronic Kidney Disease secondary hemodynamic mediated, feNa < 1% Acute respiratory failure, O2 nasal cannula severe systolic HF EF 15%, pericardial effusion Left pleural effusion afib RVR Hyponatremia due to excess H2O Hypokalemic metabolic alkalosis due to aggressive diuresis Recommendations Kidney function slightly improving Increased urine output Strict I&O's Decrease Bumex to 1 mg IV daily Discontinue metolazone due to hyponatremia Low-dose dopamine Thoracentesis KCL replacement Fluid restriction Renal diet We will continue to follow up Plan discussed with: Patient Dietary Evaluation Review Comments: 1. Refer to CDE on DC for weight management 2. Continue current plan of care Expected Outcomes/Goals: To meet >75% estimated needs Fu 3-5 days MARCELINA MESA MD Oct 25, 2024 14:17
--- NOTE | 2024-10-25 15:52 | DVHPN2 ---
Subjective covering will start transition to PO meds tomorrow. Reviewed: Care Plan, H&P, Labs, Medications, Radiology Changes from previous H/P or p: No Changes Eyes: No Pain, No Vision change, No Conjunctivae inflammation, No Eyelid inflammation, No Other, No Redness ENT: No Ear pain, No Ear discharge, No Nose pain, No Nose discharge, No Nose congestion, No Mouth pain, No Mouth swelling, No Throat pain, No Throat swelling, No Other Cardiovascular: No Chest Pain; Palpitations; No Orthopnea, No Paroxysmal Noc. Dyspnea, No Edema, No Lt Headedness, No Other Respiratory: No Cough, No Dry; Shortness of breath; No SOB with excertion, No Wheezing, No Hemoptysis, No Pleuritic Pain, No Sputum, No Other Gastrointestinal: No Nausea, No Vomiting, No Abdominal Pain, No Diarrhea, No Constipation, No Melena, No Hematochezia, No Other Genitourinary: No Dysuria, No Frequency, No Incontinence, No Hematuria, No Retention, No Other Musculoskeletal: No other, No neck pain, No shoulder pain, No arm pain, No back pain, No hand pain, No leg pain, No foot pain Skin: No Rash, No Lesions, No Jaundice, No Bruising, No Other Objective Vitals Vital Signs Date Time Temp Pulse Resp B/P (MAP) Pulse Ox O2 Delivery O2 Flow Rate FiO2 10/25/24 13:00 98.2 86 18 97/75 (82) 94 98.2 10/25/24 08:00 Nasal Cannula* 3 32 Intake/Output Intake and Output 10/25/24 07:00 Intake Total 1168.36 ml Output Total 3150 ml Balance -1981.64 ml Intake Oral 1040 ml IV Total 128.36 ml Output Urine Total 3150 ml General Appearance: Alert, Oriented X3, mild distress HEENT: Atraumatic, PERRLA, EOMI, Mucous membr. moist/pink Neck: Supple Lungs: Other (Bilateral rhonchi) Cardiovascular: Regular rate, Normal S1, Normal S2, No murmurs Abdomen: Normal bowel sounds, Soft, No tenderness Extremities: Other (2+ edema B) Neuro: Cranial nerves 3-12 NL Psych/Mental Status: Mental status NL Medications Current Medications Medications Dose Ordered Sig/Nadia Route Start Time Stop Time Status Last Admin Dose Admin Aspirin 81 mg DAILY PO 10/06/24 10:00 10/23/24 10:50 81 MG Ondansetron HCl 4 mg Q4HP PRN IV 10/05/24 20:45 10/25/24 08:29 4 MG Docusate Sodium 100 mg BIDPRN PRN PO 10/05/24 20:45 10/07/24 14:18 100 MG Nitroglycerin 0.4 mg Q5MINP PRN SL 10/05/24 22:30 Amiodarone HCl 200 mg Q12HR PO 10/07/24 15:00 10/25/24 09:57 200 MG Vancomycin HCl 250 ml @ 200 mls/hr Q12H IV 10/08/24 14:00 UNV Midodrine 10 mg TID@0600,1200,1800 PO 10/13/24 12:00 10/25/24 12:18 10 MG Acetaminophen 650 mg Q6HP PRN PO 10/15/24 16:45 10/25/24 11:18 650 MG Potassium Bicarbonate 50 meq DAILY PO 10/17/24 10:00 10/25/24 09:57 50 MEQ Dopamine HCl/ Dextrose 250 ml @ 9.795 mls/ hr Q24H IV 10/21/24 12:30 10/24/24 21:12 9.795 MLS/HR Enteral Nutritional Formula 240 ml BIDWM PO 10/23/24 18:00 10/24/24 18:20 240 ML Bumetanide 1 mg DAILY IV 10/26/24 10:00 Laboratory Results Laboratory Tests 10/24/24 05:57 10/25/24 05:50 Chemistry Test 10/25/24 05:50 Calcium Level 10.0 mg/dL (8.7-10.4) Cardiac Markers Test 10/25/24 05:50 B-Type Natriuretic Peptide 48.50 pg/mL (0-100) Urinalysis Test 10/05/24 18:45 10/06/24 17:49 Urine Color Yellow (Yellow) Urine Clarity Clear (Clear) Urine pH 6.0 (5.0-9.0) Urine Specific [place] 1.031 (1.001-1.035) Urine Protein 2+ (Negative) H Urine Ketones Negative (Negative) Urine Blood Negative /uL (Negative) Urine Nitrite Negative (Negative) Urine Bilirubin Negative (Negative) Urine Urobilinogen 3 mg/dL (Negative) H Urine Leukocyte Esterase Negative /uL (Negative) Urine RBC 2 /hpf (0 - 3) Urine Microscopic WBC 8 /HPF (0-3) H Urine Squamous Epithelial Cells Few /hpf (<5) Urine Bacteria Few /hpf (None Seen) H Urine Hyaline Casts Few /lpf (0 - 2) Urine Mucus Few (None Seen) Urine Glucose Trace mg/dL (Normal) Urine Creatinine 97.15 mg/dL (30.0-125.0) Urine Sodium < 10 mmol/L (40-220) L Urine Total Protein 84.0 mg/dL (1-14) H Microbiology Microbiology Date/Time Source Procedure Growth Status 10/23/24 11:25 Pleural Fluid Gram Stain - Final Resulted 10/23/24 11:25 Pleural Fluid Aerobic Culture - Preliminary Resulted 10/06/24 12:31 Nose MRSA Screen - Final Complete 10/05/24 19:19 Blood Blood Culture - Final NO GROWTH AFTER 5 DAYS OF INCUBATION. Complete Assessment/Plan Assessment/Plan Acute CHF exacerbation with systolic dysfunction AFib with RVR , currently rate controlled Left-sided pleural effusion status post thoracentesis Acute kidney injury suspected secondary to vasomotor nephropathy Cardiomyopathy with EF of 15% History of alcoholism Morbid obesity class I Hypotension Pericardial effusion PLAN: Continuing current management. Continuing with Bumex,metoprolol , midodrine, aspirin, digoxin, and oxygen. Continue with dopamine - have ectopies, if persist will dc Continue with LifeVest. Continuing with Eliquis. I discussed with the patient regarding to his tiredness. Explained to him that he had cardiomyopathy with EF of 15%. The dobutamine and dopamine actually will help his heart and his kidney function. With his weakness we continuing physical therapy and hopefully he can improve. Continue current care. Encourage the patient to work with physical therapy to be out of bed and ambulate Plan discussed with: Patient My Orders Orders - IDALMIS DIAZ MD Procedure Category Date Status Time Potassium Chl Rj PHA 10/25/24 Transmitted KCL 16:00 Complete Blood Count LAB 10/26/24 Verified 04:00 Date of Service: Oct 25, 2024 Billing Provider: IDALMIS DIAZ MD Common Visit Codes: [id number] INP/OBS CARE(HIGH) IDALMIS DIAZ MD Oct 25, 2024 15:52
[2024-10-25] MEDS: POTASSIUM CHL 20MEQ/100ML 100 ML IV SCH (16:18)
[2024-10-25] MEDS: POTASSIUM CHL 20MEQ/100ML 200 ML IV ONE (16:32)
--- NOTE | 2024-10-25 16:45 | DVHPN2 ---
Progress Note Date Seen: Oct 25, 2024 Resident Creating Document: NEO UREÑA Medical Necessity Reason Pt with a Central, PICC or Fol: No The following are medically ne: Dean Catheter Reason for dean catheter: Strict I&O Subjective Review of Systems Patient was seen today at bedside Denied any nausea or vomiting today Persistent leukocytosis, WBC trending up Hypokalemia replenished Unremarkable barium swallow study Patient was seen by Nephrology for HORACIO on CKD Objective vital signs Vital Sign Date Time Temp Pulse Resp B/P (MAP) Pulse Ox O2 Delivery O2 Flow Rate FiO2 10/25/24 13:00 98.2 86 18 97/75 (82) 94 98.2 10/25/24 08:00 Nasal Cannula* 3 32 Total Intake and Output 10/24/24 10/24/24 10/25/24 15:00 23:00 07:00 Intake Total 100 ml 660 ml 408.36 ml Output Total 1200 ml 1950 ml Balance 100 ml -540 ml -1541.64 ml medications Current Medications Medications Dose Ordered Sig/Nadia Route Start Time Stop Time Status Last Admin Dose Admin Aspirin 81 mg DAILY PO 10/06/24 10:00 10/23/24 10:50 81 MG Ondansetron HCl 4 mg Q4HP PRN IV 10/05/24 20:45 10/25/24 08:29 4 MG Docusate Sodium 100 mg BIDPRN PRN PO 10/05/24 20:45 10/07/24 14:18 100 MG Nitroglycerin 0.4 mg Q5MINP PRN SL 10/05/24 22:30 Amiodarone HCl 200 mg Q12HR PO 10/07/24 15:00 10/25/24 09:57 200 MG Vancomycin HCl 250 ml @ 200 mls/hr Q12H IV 10/08/24 14:00 UNV Midodrine 10 mg TID@0600,1200,1800 PO 10/13/24 12:00 10/25/24 12:18 10 MG Acetaminophen 650 mg Q6HP PRN PO 10/15/24 16:45 10/25/24 11:18 650 MG Potassium Bicarbonate 50 meq DAILY PO 10/17/24 10:00 10/25/24 09:57 50 MEQ Dopamine HCl/ Dextrose 250 ml @ 9.795 mls/ hr Q24H IV 6/22/25 12:30 10/24/24 21:12 9.795 MLS/HR Enteral Nutritional Formula 240 ml BIDWM PO 10/23/24 18:00 10/24/24 18:20 240 ML Bumetanide 1 mg DAILY IV 10/26/24 10:00 Potassium Chloride 100 ml @ 50 mls/hr Q2H IV 10/25/24 16:00 10/25/24 19:59 10/25/24 16:18 50 MLS/HR laboratory and microbiology Laboratory Tests 10/25/24 05:50 10/24/24 05:57 Test 10/25/24 05:50 Range/Units Serum Glucose 212 H 74-106 mg/dL Microbiology Date/Time Source Procedure Growth Status 10/23/24 11:25 Pleural Fluid Gram Stain - Final Resulted 10/23/24 11:25 Pleural Fluid Aerobic Culture - Preliminary Resulted 10/06/24 12:31 Nose MRSA Screen - Final Complete 10/05/24 19:19 Blood Blood Culture - Final NO GROWTH AFTER 5 DAYS OF INCUBATION. Complete Problem List/Assessment/Plan Problem List/Assessment/Plan Assessment and plan Intractable Nausea Acute CHF HORACIO on CKD Left Pleural effusion Pericardial effusion Events Denied any nausea or vomiting today Persistent leukocytosis, WBC trending up Hypokalemia replenished Unremarkable barium swallow study Patient was seen by Nephrology for HORACIO on CKD Plan Conservative management from Gastroenterology part Barium swallow nonsignificant Continue Zofran Continue diuretics as prescribed Monitor intake output chart Avoid dehydration and nephrotoxic drugs Plan discussed with Dr. Jhoana Velazquez , nursing staff, Total time spent on patient evaluation, chart review, assessment and plan, discussion discussion >35 minutes Plan discussed with: Patient, Other (RN) Dietary Evaluation Review Comments: 1. Refer to CDE on DC for weight management 2. Continue current plan of care Expected Outcomes/Goals: To meet >75% estimated needs Fu 3-5 days NEO UREÑA RESIDENT Oct 25, 2024 16:45
[2024-10-25] MEDS: PANTOPRAZOLE 40 MG TAB PO ONE (18:51)
--- NOTE | 2024-10-25 23:38 | DVHPN2 ---
Progress Note - Dictate Date Seen: Oct 25, 2024 Medical Necessity Reason Pt with a Central, PICC or Fol: Yes The following are medically ne: Dean Catheter Reason for dean catheter: Strict I&O Subjective Patient was seen and evaluated in follow up. Patient is on 2 LPM NC. Patient is complaining of nausea and SOB. Patient is on Dopamine drip. K 3, CL 78, CO2 > 40, BUN 60, PATIENT CARE SPECIALIST 2.04, GLUC 212. Telemetry reviewed. vital signs Vital Sign Date Time Temp Pulse Resp B/P (MAP) Pulse Ox O2 Delivery O2 Flow Rate FiO2 10/25/24 09:00 96.4 75 20 96/69 (78) 91 96.4 10/25/24 08:00 Nasal Cannula* 3 32 Total Intake and Output 10/24/24 10/24/24 10/25/24 15:00 23:00 07:00 Intake Total 100 ml 660 ml 408.36 ml Output Total 1200 ml 1950 ml Balance 100 ml -540 ml -1541.64 ml medications Current Medications Medications Dose Ordered Sig/Nadia Route Start Time Stop Time Status Last Admin Dose Admin Aspirin 81 mg DAILY PO 10/06/24 10:00 10/23/24 10:50 81 MG Ondansetron HCl 4 mg Q4HP PRN IV 10/05/24 20:45 10/25/24 08:29 4 MG Docusate Sodium 100 mg BIDPRN PRN PO 10/05/24 20:45 10/07/24 14:18 100 MG Nitroglycerin 0.4 mg Q5MINP PRN SL 10/05/24 22:30 Amiodarone HCl 200 mg Q12HR PO 10/07/24 15:00 10/25/24 09:57 200 MG Vancomycin HCl 250 ml @ 200 mls/hr Q12H IV 10/08/24 14:00 UNV Midodrine 10 mg TID@0600,1200,1800 PO 10/13/24 12:00 10/25/24 05:13 10 MG Acetaminophen 650 mg Q6HP PRN PO 10/15/24 16:45 10/25/24 11:18 650 MG Potassium Bicarbonate 50 meq DAILY PO 10/17/24 10:00 10/25/24 09:57 50 MEQ Bumetanide 1 mg BIDD IV 10/21/24 11:00 10/25/24 05:13 1 MG Dopamine HCl/ Dextrose 250 ml @ 9.795 mls/ hr Q24H IV 10/21/24 12:30 10/24/24 21:12 9.795 MLS/HR Enteral Nutritional Formula 240 ml BIDWM PO 10/23/24 18:00 10/24/24 18:20 240 ML objective GENERAL: Alert and oriented x 3. No acute distress. Morbidly obese. EYES: PERRL, EOMI. Anicteric. HENT: Moist mucous membranes. LUNGS: Diminished breath sounds. CARDIOVASCULAR: Irregular rate and rhythm. ABDOMEN: Soft, nontender and nondistended. EXTREMITIES: +3 pitting edema. NEUROLOGIC: No focal neurological deficits. SKIN: Warm, dry. laboratory and microbiology Laboratory Tests 10/25/24 05:50 10/24/24 05:57 Test 10/25/24 05:50 Range/Units Serum Glucose 212 H 74-106 mg/dL Problem List Atrial fibrillation with rapid ventricular response, newly diagnosed. Left pleural effusion. Sepsis. Hyperkalemia. Acute kidney injury. Transaminitis. Prediabetes. History of alcoholism. Morbidly obese. Severe systolic HF EF 15%, large pleural effusions. Pericardial effusion. Assessment/Plan Continued all current supportive medical care. Amiodarone. Aspirin. Diuretics with Bumex. Dopamine drip. Midodrine. Nitro SL. Additional plan as per the hospital course. Dietary Evaluation Review Comments: 1. Refer to CDE on DC for weight management 2. Continue current plan of care Expected Outcomes/Goals: To meet >75% estimated needs Fu 3-5 days Plan discussed with: Patient XIOMY JERONIMO MD Oct 25, 2024 11:47
[2024-10-26] VITALS (8 sets, daily range): BP systolic 99–119; BP diastolic 70–85; PULSE 65–87; RESP 16–19; TEMP 94.7–97.8; O2SAT 91–97
[2024-10-26] MEDS: PANTOPRAZOLE 40 MG TAB PO SCH (05:38)
[2024-10-26 06:04] LABS: Hematocrit 45.3 % (41.0-53.0); Hemoglobin 15.2 g/dL (13.5-17.5); Mean Corpuscular Hemoglobin 30.2 pg (28.0-32.0); Mean Corpuscular Volume 89.9 fL (80.0-100.0); Nucleated Red Blood Cells % 0.0 %
[2024-10-26 06:18] LABS: Calcium 9.4 mg/dL (8.7-10.4)
[2024-10-26 06:23] LABS: BUN/Creatinine Ratio 30.6 (10.0-20.0)
[2024-10-26 06:33] LABS: Chloride 78 mmol/L (98-107); Potassium 3.3 mmol/L (3.5-5.1); Sodium 131 mmol/L (136-145)
[2024-10-26 06:35] LABS: Anion Gap 12.99999 (5-15); Blood Urea Nitrogen 59 mg/dL (9-23); Carbon Dioxide > 40 mmol/L (20-31); Glucose 144 mg/dL (74-106)
[2024-10-26] MEDS: BUMETANIDE 2.5mg/10ml (0.25 mg/ml) INJ IV SCH (10:28)
--- NOTE | 2024-10-26 11:49 | DVHPN2 ---
Subjective covering adjusting meds to PO. dc dopamine drip. bumex to po Reviewed: Care Plan, H&P, Labs, Medications, Radiology Changes from previous H/P or p: No Changes Eyes: No Pain, No Vision change, No Conjunctivae inflammation, No Eyelid inflammation, No Other, No Redness ENT: No Ear pain, No Ear discharge, No Nose pain, No Nose discharge, No Nose congestion, No Mouth pain, No Mouth swelling, No Throat pain, No Throat swelling, No Other Cardiovascular: No Chest Pain; Palpitations; No Orthopnea, No Paroxysmal Noc. Dyspnea, No Edema, No Lt Headedness, No Other Respiratory: No Cough, No Dry; Shortness of breath; No SOB with excertion, No Wheezing, No Hemoptysis, No Pleuritic Pain, No Sputum, No Other Gastrointestinal: No Nausea, No Vomiting, No Abdominal Pain, No Diarrhea, No Constipation, No Melena, No Hematochezia, No Other Genitourinary: No Dysuria, No Frequency, No Incontinence, No Hematuria, No Retention, No Other Musculoskeletal: No other, No neck pain, No shoulder pain, No arm pain, No back pain, No hand pain, No leg pain, No foot pain Skin: No Rash, No Lesions, No Jaundice, No Bruising, No Other Objective Vitals Vital Signs Date Time Temp Pulse Resp B/P (MAP) Pulse Ox O2 Delivery O2 Flow Rate FiO2 10/26/24 10:28 119/72 10/26/24 09:00 97.8 87 18 91 97.8 10/26/24 08:00 Nasal Cannula* 3 32 Intake/Output Intake and Output 10/26/24 07:00 Intake Total 1812.645 ml Output Total 2350 ml Balance -537.355 ml Intake Oral 1500 ml IV Total 312.645 ml Output Urine Total 2350 ml General Appearance: Alert, Oriented X3, mild distress HEENT: Atraumatic, PERRLA, EOMI, Mucous membr. moist/pink Neck: Supple Lungs: Other (Bilateral rhonchi) Cardiovascular: Regular rate, Normal S1, Normal S2, No murmurs Abdomen: Normal bowel sounds, Soft, No tenderness Extremities: Other (2+ edema B) Neuro: Cranial nerves 3-12 NL Psych/Mental Status: Mental status NL Medications Current Medications Medications Dose Ordered Sig/Nadia Route Start Time Stop Time Status Last Admin Dose Admin Aspirin 81 mg DAILY PO 10/06/24 10:00 10/23/24 10:50 81 MG Ondansetron HCl 4 mg Q4HP PRN IV 10/05/24 20:45 10/25/24 08:29 4 MG Docusate Sodium 100 mg BIDPRN PRN PO 10/05/24 20:45 10/07/24 14:18 100 MG Nitroglycerin 0.4 mg Q5MINP PRN SL 10/05/24 22:30 Amiodarone HCl 200 mg Q12HR PO 10/07/24 15:00 10/26/24 10:27 200 MG Vancomycin HCl 250 ml @ 200 mls/hr Q12H IV 10/08/24 14:00 UNV Midodrine 10 mg TID@0600,1200,1800 PO 10/13/24 12:00 10/26/24 05:38 10 MG Acetaminophen 650 mg Q6HP PRN PO 10/15/24 16:45 10/25/24 17:52 650 MG Potassium Bicarbonate 50 meq DAILY PO 10/17/24 10:00 10/26/24 10:27 50 MEQ Dopamine HCl/ Dextrose 250 ml @ 9.795 mls/ hr Q24H IV 10/21/24 12:30 10/25/24 21:53 9.795 MLS/HR Enteral Nutritional Formula 240 ml BIDWM PO 10/23/24 18:00 10/26/24 08:10 240 ML Bumetanide 1 mg DAILY IV 10/26/24 10:00 10/26/24 10:28 1 MG Pantoprazole Sodium 40 mg DAILY@0600 PO 10/26/24 06:00 10/26/24 05:38 40 MG Laboratory Results Laboratory Tests 10/26/24 05:38 Chemistry Test 10/26/24 05:38 Calcium Level 9.4 mg/dL (8.7-10.4) Cardiac Markers Test 10/26/24 05:38 B-Type Natriuretic Peptide 55.43 pg/mL (0-100) Urinalysis Test 10/05/24 18:45 10/06/24 17:49 Urine Color Yellow (Yellow) Urine Clarity Clear (Clear) Urine pH 6.0 (5.0-9.0) Urine Specific [place] 1.031 (1.001-1.035) Urine Protein 2+ (Negative) H Urine Ketones Negative (Negative) Urine Blood Negative /uL (Negative) Urine Nitrite Negative (Negative) Urine Bilirubin Negative (Negative) Urine Urobilinogen 3 mg/dL (Negative) H Urine Leukocyte Esterase Negative /uL (Negative) Urine RBC 2 /hpf (0 - 3) Urine Microscopic WBC 8 /HPF (0-3) H Urine Squamous Epithelial Cells Few /hpf (<5) Urine Bacteria Few /hpf (None Seen) H Urine Hyaline Casts Few /lpf (0 - 2) Urine Mucus Few (None Seen) Urine Glucose Trace mg/dL (Normal) Urine Creatinine 97.15 mg/dL (30.0-125.0) Urine Sodium < 10 mmol/L (40-220) L Urine Total Protein 84.0 mg/dL (1-14) H Microbiology Microbiology Date/Time Source Procedure Growth Status 10/23/24 11:25 Pleural Fluid Gram Stain - Final Resulted 10/23/24 11:25 Pleural Fluid Aerobic Culture - Preliminary Resulted 10/06/24 12:31 Nose MRSA Screen - Final Complete 10/05/24 19:19 Blood Blood Culture - Final NO GROWTH AFTER 5 DAYS OF INCUBATION. Complete Assessment/Plan Assessment/Plan Acute CHF exacerbation with systolic dysfunction AFib with RVR , currently rate controlled Left-sided pleural effusion status post thoracentesis Acute kidney injury suspected secondary to vasomotor nephropathy Cardiomyopathy with EF of 15% History of alcoholism Morbid obesity class I Hypotension Pericardial effusion PLAN: Continuing current management. Continuing with Bumex,metoprolol , midodrine, aspirin, digoxin, and oxygen. Continue with dopamine - have ectopies, if persist will dc Continue with LifeVest. Continuing with Eliquis. I discussed with the patient regarding to his tiredness. Explained to him that he had cardiomyopathy with EF of 15%. The dobutamine and dopamine actually will help his heart and his kidney function. With his weakness we continuing physical therapy and hopefully he can improve. Continue current care. Encourage the patient to work with physical therapy to be out of bed and ambulate Plan discussed with: Patient Date of Service: Oct 26, 2024 Billing Provider: IDALMIS DIAZ MD Common Visit Codes: [id number] INP/OBS CARE(HIGH) IDALMIS DIAZ MD Oct 26, 2024 11:49
--- NOTE | 2024-10-26 15:36 | DVHPN2 ---
Progress Note Date Seen: Oct 26, 2024 Resident Creating Document: NEO UREÑA Medical Necessity Reason Pt with a Central, PICC or Fol: Yes The following are medically ne: Dean Catheter Reason for dean catheter: Strict I&O Subjective Review of Systems Patient was seen today at bedside Denied any nausea or vomiting Persistent leukocytosis H&H stable On pantoprazole On Bumex Objective vital signs Vital Sign Date Time Temp Pulse Resp B/P (MAP) Pulse Ox O2 Delivery O2 Flow Rate FiO2 10/26/24 13:00 97.3 79 18 103/76 (85) 92 97.3 10/26/24 08:00 Nasal Cannula* 3 32 Total Intake and Output 10/25/24 10/25/24 10/26/24 14:59 22:59 06:59 Intake Total 824.49 ml 900 ml Output Total 1300 ml 1050 ml Balance -475.51 ml -150 ml medications Current Medications Medications Dose Ordered Sig/Nadia Route Start Time Stop Time Status Last Admin Dose Admin Aspirin 81 mg DAILY PO 10/06/24 10:00 10/23/24 10:50 81 MG Ondansetron HCl 4 mg Q4HP PRN IV 10/05/24 20:45 10/25/24 08:29 4 MG Docusate Sodium 100 mg BIDPRN PRN PO 10/05/24 20:45 10/07/24 14:18 100 MG Nitroglycerin 0.4 mg Q5MINP PRN SL 10/05/24 22:30 Amiodarone HCl 200 mg Q12HR PO 10/07/24 15:00 10/26/24 10:27 200 MG Vancomycin HCl 250 ml @ 200 mls/hr Q12H IV 10/08/24 14:00 UNV Midodrine 10 mg TID@0600,1200,1800 PO 10/13/24 12:00 10/26/24 12:02 10 MG Acetaminophen 650 mg Q6HP PRN PO 10/15/24 16:45 10/26/24 12:11 650 MG Dopamine HCl/ Dextrose 250 ml @ 9.795 mls/ hr Q24H IV 10/21/24 12:30 10/25/24 21:53 9.795 MLS/HR Enteral Nutritional Formula 240 ml BIDWM PO 10/23/24 18:00 10/26/24 08:10 240 ML Pantoprazole Sodium 40 mg DAILY@0600 PO 10/26/24 06:00 10/26/24 05:38 40 MG Potassium Bicarbonate 25 meq TID PO 10/26/24 22:00 Bumetanide 1 mg DAILY PO 10/27/24 10:00 laboratory and microbiology Laboratory Tests 10/26/24 05:38 Test 10/26/24 05:38 Range/Units Serum Glucose 144 H 74-106 mg/dL Microbiology Date/Time Source Procedure Growth Status 10/23/24 11:25 Pleural Fluid Gram Stain - Final Resulted 10/23/24 11:25 Pleural Fluid Aerobic Culture - Preliminary Resulted 10/06/24 12:31 Nose MRSA Screen - Final Complete 10/05/24 19:19 Blood Blood Culture - Final NO GROWTH AFTER 5 DAYS OF INCUBATION. Complete Problem List/Assessment/Plan Problem List/Assessment/Plan Assessment and plan Intractable Nausea Acute CHF HORACIO on CKD Left Pleural effusion Pericardial effusion Events Denied any nausea or vomiting Persistent leukocytosis H&H stable On pantoprazole On Bumex Plan We will continue Conservative management from Gastroenterology part Continue Zofran Continue diuretics as prescribed Monitor intake output chart Avoid dehydration and nephrotoxic drugs Plan discussed with Dr. Jhoana Velazquez , nursing staff, Total time spent on patient evaluation, chart review, assessment and plan, discussion discussion >35 minutes Plan discussed with: Patient, Other (RN) My Orders My Orders Orders - NEO UREÑA Procedure Category Date Status Time Pantoprazole Tablet PHA 10/26/24 In Process (Protonix Tablet) 06:00 Dietary Evaluation Review Comments: 1. Refer to CDE on DC for weight management 2. Continue current plan of care Expected Outcomes/Goals: To meet >75% estimated needs Fu 3-5 days NEO UREÑA RESIDENT Oct 26, 2024 15:36
--- NOTE | 2024-10-26 18:39 | DVHPN2 ---
Progress Note Date Seen: Oct 26, 2024 Medical Necessity Reason Pt with a Central, PICC or Fol: Yes The following are medically ne: Dean Catheter Reason for dean catheter: Strict I&O Subjective Patient reports: No new complaints (Patient's is at bedside) Review of Systems: Deferred Objective vital signs Vital Sign Date Time Temp Pulse Resp B/P (MAP) Pulse Ox O2 Delivery O2 Flow Rate FiO2 10/26/24 17:00 97.5 77 16 113/85 (94) 95 97.5 10/26/24 08:00 Nasal Cannula* 3 32 Total Intake and Output 10/25/24 10/25/24 10/26/24 15:00 23:00 07:00 Intake Total 824.49 ml 988.155 ml Output Total 1300 ml 1050 ml Balance -475.51 ml -61.845 ml medications Current Medications Medications Dose Ordered Sig/Nadia Route Start Time Stop Time Status Last Admin Dose Admin Aspirin 81 mg DAILY PO 10/06/24 10:00 10/23/24 10:50 81 MG Ondansetron HCl 4 mg Q4HP PRN IV 10/05/24 20:45 10/25/24 08:29 4 MG Docusate Sodium 100 mg BIDPRN PRN PO 10/05/24 20:45 10/07/24 14:18 100 MG Nitroglycerin 0.4 mg Q5MINP PRN SL 10/05/24 22:30 Amiodarone HCl 200 mg Q12HR PO 10/07/24 15:00 10/26/24 10:27 200 MG Vancomycin HCl 250 ml @ 200 mls/hr Q12H IV 10/08/24 14:00 UNV Midodrine 10 mg TID@0600,1200,1800 PO 10/13/24 12:00 10/26/24 18:12 10 MG Acetaminophen 650 mg Q6HP PRN PO 10/15/24 16:45 10/26/24 18:12 650 MG Dopamine HCl/ Dextrose 250 ml @ 9.795 mls/ hr Q24H IV 10/21/24 12:30 10/25/24 21:53 9.795 MLS/HR Enteral Nutritional Formula 240 ml BIDWM PO 10/23/24 18:00 10/26/24 18:26 240 ML Pantoprazole Sodium 40 mg DAILY@0600 PO 10/26/24 06:00 10/26/24 05:38 40 MG Potassium Bicarbonate 25 meq TID PO 10/26/24 22:00 Bumetanide 1 mg DAILY PO 10/27/24 10:00 Examination: GENERAL:Normal, ABDOMEN:Normal, MSK:Abnormal, NEURO:Normal laboratory and microbiology Laboratory Tests 10/26/24 05:38 Test 10/26/24 05:38 Range/Units Serum Glucose 144 H 74-106 mg/dL Microbiology Date/Time Source Procedure Growth Status 10/23/24 11:25 Pleural Fluid Gram Stain - Final Resulted 10/23/24 11:25 Pleural Fluid Aerobic Culture - Preliminary Resulted 10/06/24 12:31 Nose MRSA Screen - Final Complete 10/05/24 19:19 Blood Blood Culture - Final NO GROWTH AFTER 5 DAYS OF INCUBATION. Complete Problem List/Assessment/Plan Problem List/Assessment/Plan Acute kidney injury due to hypotension/cardiorenal etiology ckd cr 1.1 on admission severe systolic HF EF 15%, large pleural effusions s/p thoracentesis pericardial effusion afib RVR Hyponatremia Hypokalemia Metabolic alkalosis secondary to diuretics Recommendations On p.o. Bumex K replacement Plan discussed with: Patient, Spouse, Other Dietary Evaluation Review Comments: 1. Refer to CDE on DC for weight management 2. Continue current plan of care Expected Outcomes/Goals: To meet >75% estimated needs Fu 3-5 days DINA FORBES MD Oct 26, 2024 18:39
[2024-10-26] MEDS: POTASSIUM EFFERVESENT TAB 25 MEQ PO SCH (21:14)
--- NOTE | 2024-10-26 21:41 | DVHPN2 ---
Progress Note - Dictate Date Seen: Oct 26, 2024 Medical Necessity Reason Pt with a Central, PICC or Fol: Yes The following are medically ne: Dean Catheter Reason for dean catheter: Strict I&O Subjective Patient was seen and evaluated in follow up. is at bedside. Patient has no new complaints. The patient is on 3 LPM. WBC 14.7, K 3.3, CL 78, CO2 > 40, BUN 59, HUMAN FACTORS ADVISOR LEAD 1.93. Telemetry reviewed. vital signs Vital Sign Date Time Temp Pulse Resp B/P (MAP) Pulse Ox O2 Delivery O2 Flow Rate FiO2 10/26/24 13:00 97.3 79 18 103/76 (85) 92 97.3 10/26/24 08:00 Nasal Cannula* 3 32 Total Intake and Output 10/25/24 10/25/24 10/26/24 15:00 23:00 07:00 Intake Total 824.49 ml 988.155 ml Output Total 1300 ml 1050 ml Balance -475.51 ml -61.845 ml medications Current Medications Medications Dose Ordered Sig/Nadia Route Start Time Stop Time Status Last Admin Dose Admin Aspirin 81 mg DAILY PO 10/06/24 10:00 10/23/24 10:50 81 MG Ondansetron HCl 4 mg Q4HP PRN IV 10/05/24 20:45 10/25/24 08:29 4 MG Docusate Sodium 100 mg BIDPRN PRN PO 10/05/24 20:45 10/07/24 14:18 100 MG Nitroglycerin 0.4 mg Q5MINP PRN SL 10/05/24 22:30 Amiodarone HCl 200 mg Q12HR PO 10/07/24 15:00 10/26/24 10:27 200 MG Vancomycin HCl 250 ml @ 200 mls/hr Q12H IV 10/08/24 14:00 UNV Midodrine 10 mg TID@0600,1200,1800 PO 10/13/24 12:00 10/26/24 12:02 10 MG Acetaminophen 650 mg Q6HP PRN PO 10/15/24 16:45 10/26/24 12:11 650 MG Dopamine HCl/ Dextrose 250 ml @ 9.795 mls/ hr Q24H IV 10/21/24 12:30 10/25/24 21:53 9.795 MLS/HR Enteral Nutritional Formula 240 ml BIDWM PO 10/23/24 18:00 10/26/24 08:10 240 ML Pantoprazole Sodium 40 mg DAILY@0600 PO 10/26/24 06:00 10/26/24 05:38 40 MG Potassium Bicarbonate 25 meq TID PO 10/26/24 22:00 Bumetanide 1 mg DAILY PO 10/27/24 10:00 objective GENERAL: Alert and oriented x 3. No acute distress. Morbidly obese. EYES: PERRL, EOMI. Anicteric. HENT: Moist mucous membranes. LUNGS: Diminished breath sounds. CARDIOVASCULAR: Irregular rate and rhythm. ABDOMEN: Soft, nontender and nondistended. EXTREMITIES: +3 pitting edema. NEUROLOGIC: No focal neurological deficits. SKIN: Warm, dry. laboratory and microbiology Laboratory Tests 10/26/24 05:38 Test 10/26/24 05:38 Range/Units Serum Glucose 144 H 74-106 mg/dL Problem List Atrial fibrillation with rapid ventricular response, newly diagnosed. Left pleural effusion. Sepsis. Hyperkalemia. Acute kidney injury. Transaminitis. Prediabetes. History of alcoholism. Morbidly obese. Severe systolic HF EF 15%, large pleural effusions. Pericardial effusion. Assessment/Plan Continued all current supportive medical care. Amiodarone. Diuretics with Bumex. Midodrine. Nitro SL. GI prophylactics. Additional plan as per the hospital course. Dietary Evaluation Review Comments: 1. Refer to CDE on DC for weight management 2. Continue current plan of care Expected Outcomes/Goals: To meet >75% estimated needs Fu 3-5 days Plan discussed with: Patient XIOMY JERONIMO MD Oct 26, 2024 14:25
[2024-10-27] VITALS (8 sets, daily range): BP systolic 100–125; BP diastolic 72–85; PULSE 74–81; RESP 18–20; TEMP 97.1–98.2; O2SAT 94–96
[2024-10-27 05:41] LABS: Hematocrit 42.2 % (41.0-53.0); Hemoglobin 14.1 g/dL (13.5-17.5); Mean Corpuscular Hemoglobin 30.1 pg (28.0-32.0); Mean Corpuscular Volume 89.9 fL (80.0-100.0); Nucleated Red Blood Cells % 0.1 %
[2024-10-27 06:08] LABS: Calcium 10.2 mg/dL (8.7-10.4)
[2024-10-27 06:12] LABS: BUN/Creatinine Ratio 30.0 (10.0-20.0)
[2024-10-27 06:25] LABS: Anion Gap 9.99999 (5-15); Blood Urea Nitrogen 62 mg/dL (9-23); Chloride 78 mmol/L (98-107); Glucose 145 mg/dL (74-106); Potassium 3.3 mmol/L (3.5-5.1); Sodium 128 mmol/L (136-145)
[2024-10-27 06:26] LABS: Carbon Dioxide > 40 mmol/L (20-31)
[2024-10-27] MEDS: BUMETANIDE 1 MG TAB PO SCH (09:39)
--- NOTE | 2024-10-27 12:06 | DVHPN2 ---
Progress Note Date Seen: Oct 27, 2024 Resident Creating Document: NEO UREÑA Medical Necessity Reason Pt with a Central, PICC or Fol: Yes The following are medically ne: Dean Catheter Reason for dean catheter: Strict I&O Subjective Review of Systems Patient is seen today at bedside No nausea and vomiting H&H stable WBC trending down Patient is seen by Nephrology yesterday On bumetanide Potassium replenished for hypokalemia Objective vital signs Vital Sign Date Time Temp Pulse Resp B/P (MAP) Pulse Ox O2 Delivery O2 Flow Rate FiO2 10/27/24 09:39 124/84 10/27/24 09:11 97.1 76 20 96 97.1 10/26/24 20:00 Nasal Cannula* 3 32 Total Intake and Output 10/26/24 10/26/24 10/27/24 15:00 23:00 07:00 Intake Total 240 ml 860 ml 1700 ml Output Total 1150 ml 1100 ml Balance 240 ml -290 ml 600 ml medications Current Medications Medications Dose Ordered Sig/Nadia Route Start Time Stop Time Status Last Admin Dose Admin Aspirin 81 mg DAILY PO 10/06/24 10:00 10/27/24 09:38 81 MG Ondansetron HCl 4 mg Q4HP PRN IV 10/05/24 20:45 10/25/24 08:29 4 MG Docusate Sodium 100 mg BIDPRN PRN PO 10/05/24 20:45 10/07/24 14:18 100 MG Nitroglycerin 0.4 mg Q5MINP PRN SL 10/05/24 22:30 Amiodarone HCl 200 mg Q12HR PO 10/07/24 15:00 10/27/24 09:37 200 MG Vancomycin HCl 250 ml @ 200 mls/hr Q12H IV 10/08/24 14:00 UNV Midodrine 10 mg TID@0600,1200,1800 PO 10/13/24 12:00 10/27/24 05:53 10 MG Acetaminophen 650 mg Q6HP PRN PO 10/15/24 16:45 10/26/24 18:12 650 MG Enteral Nutritional Formula 240 ml BIDWM PO 10/23/24 18:00 10/27/24 08:00 240 ML Pantoprazole Sodium 40 mg DAILY@0600 PO 10/26/24 06:00 10/27/24 05:53 40 MG Potassium Bicarbonate 25 meq TID PO 10/26/24 22:00 10/27/24 05:53 25 MEQ Bumetanide 1 mg DAILY PO 10/27/24 10:00 10/27/24 09:39 1 MG laboratory and microbiology Laboratory Tests 10/27/24 05:13 Test 10/27/24 05:13 Range/Units Serum Glucose 145 H 74-106 mg/dL Microbiology Date/Time Source Procedure Growth Status 10/23/24 11:25 Pleural Fluid Gram Stain - Final Complete 10/23/24 11:25 Pleural Fluid Aerobic Culture - Final Complete 10/06/24 12:31 Nose MRSA Screen - Final Complete 10/05/24 19:19 Blood Blood Culture - Final NO GROWTH AFTER 5 DAYS OF INCUBATION. Complete Problem List/Assessment/Plan Problem List/Assessment/Plan Assessment and plan Intractable Nausea Acute CHF HORACIO on CKD Left Pleural effusion Pericardial effusion Events No nausea and vomiting H&H stable WBC trending down Patient is seen by Nephrology yesterday On bumetanide Potassium replenished for hypokalemia Plan Gastroenterology team will sign off Please continue current conservative management nausea and vomiting Other care as per primary team Plan discussed with Dr. Jhoana Velazquez , nursing staff, Total time spent on patient evaluation, chart review, assessment and plan, discussion discussion >35 minutes Plan discussed with: Patient, Other (RN) Dietary Evaluation Review Comments: 1. Refer to CDE on DC for weight management 2. Continue current plan of care Expected Outcomes/Goals: To meet >75% estimated needs Fu 3-5 days NEO UREÑA RESIDENT Oct 27, 2024 12:06
[2024-10-27] MEDS ORDERED: POTASSIUM CHL 10 Meq TABLET PO ONE (12:15)
--- NOTE | 2024-10-27 16:27 | DVHPN2 ---
Progress Note - Dictate Date Seen: Oct 27, 2024 Medical Necessity Reason Pt with a Central, PICC or Fol: Yes The following are medically ne: Dean Catheter Reason for dean catheter: Strict I&O Subjective Patient was seen and evaluated in follow up. Patient does not voice any complaints. WBC 12.9, NA 128, K 3.3, CO2 > 40, BUN 62, POLICE COMMISSIONER 2.07. Potassium was replaced. Telemetry reviewed. vital signs Vital Sign Date Time Temp Pulse Resp B/P (MAP) Pulse Ox O2 Delivery O2 Flow Rate FiO2 10/27/24 13:00 97.8 81 20 125/82 (96) 95 97.8 10/26/24 20:00 Nasal Cannula* 3 32 Total Intake and Output 10/26/24 10/26/24 10/27/24 15:00 23:00 07:00 Intake Total 240 ml 860 ml 1700 ml Output Total 1150 ml 1100 ml Balance 240 ml -290 ml 600 ml medications Current Medications Medications Dose Ordered Sig/Nadia Route Start Time Stop Time Status Last Admin Dose Admin Aspirin 81 mg DAILY PO 10/06/24 10:00 10/27/24 09:38 81 MG Ondansetron HCl 4 mg Q4HP PRN IV 10/05/24 20:45 10/25/24 08:29 4 MG Docusate Sodium 100 mg BIDPRN PRN PO 10/05/24 20:45 10/07/24 14:18 100 MG Nitroglycerin 0.4 mg Q5MINP PRN SL 10/05/24 22:30 Amiodarone HCl 200 mg Q12HR PO 10/07/24 15:00 10/27/24 09:37 200 MG Vancomycin HCl 250 ml @ 200 mls/hr Q12H IV 10/08/24 14:00 UNV Midodrine 10 mg TID@0600,1200,1800 PO 10/13/24 12:00 10/27/24 13:09 10 MG Acetaminophen 650 mg Q6HP PRN PO 10/15/24 16:45 10/26/24 18:12 650 MG Enteral Nutritional Formula 240 ml BIDWM PO 10/23/24 18:00 10/27/24 08:00 240 ML Pantoprazole Sodium 40 mg DAILY@0600 PO 10/26/24 06:00 10/27/24 05:53 40 MG Potassium Bicarbonate 25 meq TID PO 10/26/24 22:00 10/27/24 13:10 25 MEQ Bumetanide 1 mg DAILY PO 10/27/24 10:00 10/27/24 09:39 1 MG objective GENERAL: Alert and oriented x 3. No acute distress. Morbidly obese. EYES: PERRL, EOMI. Anicteric. HENT: Moist mucous membranes. LUNGS: Diminished breath sounds. CARDIOVASCULAR: Irregular rate and rhythm. ABDOMEN: Soft, nontender and nondistended. EXTREMITIES: +3 pitting edema. NEUROLOGIC: No focal neurological deficits. SKIN: Warm, dry. laboratory and microbiology Laboratory Tests 10/27/24 05:13 Test 10/27/24 05:13 Range/Units Serum Glucose 145 H 74-106 mg/dL Problem List Atrial fibrillation with rapid ventricular response, newly diagnosed. Left pleural effusion. Sepsis. Hyperkalemia. Acute kidney injury. Transaminitis. Prediabetes. History of alcoholism. Morbidly obese. Severe systolic HF EF 15%, large pleural effusions. Pericardial effusion. Assessment/Plan Continued all current supportive medical care. Amiodarone. Diuretics with Bumex. Midodrine. Nitro SL. Aspirin. GI prophylactics. Tylenol for pain management . Additional plan as per the hospital course. Dietary Evaluation Review Comments: 1. Refer to CDE on DC for weight management 2. Continue current plan of care Expected Outcomes/Goals: To meet >75% estimated needs Fu 3-5 days Plan discussed with: Patient XIOMY JERONIMO MD Oct 27, 2024 14:28
--- NOTE | 2024-10-27 17:04 | DVH ---
CHEST RADIOGRAPH Indication: reassess pleural effusion Technique: Single frontal view of the chest was obtained Comparison: XY CHEST PORTABLE on DOS: 10/23/24, XY CHEST PORTABLE on DOS: 10/22/24 FINDINGS: Lines and Tubes: None Lungs and Pleura: No focal consolidation. Similar trace bilateral pleural effusions. No pneumothorax. Cardiomediastinal contours: Cardiomegaly. Bones: No acute osseous abnormality. IMPRESSION: Similar trace bilateral pleural effusions.
--- NOTE | 2024-10-27 19:04 | DVHPN2 ---
Progress Note Date Seen: Oct 27, 2024 Medical Necessity Reason Pt with a Central, PICC or Fol: Yes The following are medically ne: Dean Catheter Reason for dean catheter: Strict I&O Subjective Patient reports: No new complaints Review of Systems: Deferred Objective vital signs Vital Sign Date Time Temp Pulse Resp B/P (MAP) Pulse Ox O2 Delivery O2 Flow Rate FiO2 10/27/24 17:00 97.1 74 20 100/74 (83) 96 97.1 10/27/24 08:00 Nasal Cannula* 3 32 Total Intake and Output 10/26/24 10/26/24 10/27/24 15:00 23:00 07:00 Intake Total 240 ml 860 ml 1700 ml Output Total 1150 ml 1100 ml Balance 240 ml -290 ml 600 ml medications Current Medications Medications Dose Ordered Sig/Nadia Route Start Time Stop Time Status Last Admin Dose Admin Aspirin 81 mg DAILY PO 10/06/24 10:00 10/27/24 09:38 81 MG Ondansetron HCl 4 mg Q4HP PRN IV 10/05/24 20:45 10/25/24 08:29 4 MG Docusate Sodium 100 mg BIDPRN PRN PO 10/05/24 20:45 10/07/24 14:18 100 MG Nitroglycerin 0.4 mg Q5MINP PRN SL 10/05/24 22:30 Amiodarone HCl 200 mg Q12HR PO 10/07/24 15:00 10/27/24 09:37 200 MG Vancomycin HCl 250 ml @ 200 mls/hr Q12H IV 10/08/24 14:00 UNV Midodrine 10 mg TID@0600,1200,1800 PO 10/13/24 12:00 10/27/24 17:56 10 MG Acetaminophen 650 mg Q6HP PRN PO 10/15/24 16:45 10/26/24 18:12 650 MG Enteral Nutritional Formula 240 ml BIDWM PO 10/23/24 18:00 10/27/24 17:56 240 ML Pantoprazole Sodium 40 mg DAILY@0600 PO 10/26/24 06:00 10/27/24 05:53 40 MG Potassium Bicarbonate 25 meq TID PO 10/26/24 22:00 10/27/24 13:10 25 MEQ Bumetanide 1 mg DAILY PO 10/27/24 10:00 10/27/24 09:39 1 MG Examination: GENERAL:Abnormal, NEURO:Normal laboratory and microbiology Laboratory Tests 10/27/24 05:13 Test 10/27/24 05:13 Range/Units Serum Glucose 145 H 74-106 mg/dL Microbiology Date/Time Source Procedure Growth Status 10/23/24 11:25 Pleural Fluid Gram Stain - Final Complete 10/23/24 11:25 Pleural Fluid Aerobic Culture - Final Complete 10/06/24 12:31 Nose MRSA Screen - Final Complete 10/05/24 19:19 Blood Blood Culture - Final NO GROWTH AFTER 5 DAYS OF INCUBATION. Complete Problem List/Assessment/Plan Problem List/Assessment/Plan Acute kidney injury due to hypotension/cardiorenal etiology ckd cr 1.1 on admission severe systolic HF EF 15%, large pleural effusions s/p thoracentesis pericardial effusion afib RVR Hyponatremia Hypokalemia Metabolic alkalosis secondary to diuretics Recommendations 1 L NS iv as ordered On p.o. Bumex K replacement Plan discussed with: Spouse My Orders My Orders Orders - DINA FORBES MD Procedure Category Date Status Time NS PHA 10/27/24 Transmitted 19:15 Dietary Evaluation Review Comments: 1. Refer to CDE on DC for weight management 2. Continue current plan of care Expected Outcomes/Goals: To meet >75% estimated needs Fu 3-5 days DINA FORBES MD Oct 27, 2024 19:04
[2024-10-27] MEDS: SODIUM CHLORIDE 0.9% 1,000 ML IV ONE (19:39)
[2024-10-28] VITALS (7 sets, daily range): BP systolic 108–129; BP diastolic 68–87; PULSE 71–80; RESP 16–18; TEMP 97.2–98.4; O2SAT 94–96
[2024-10-28 06:38] LABS: Calcium 10.0 mg/dL (8.7-10.4)
[2024-10-28 06:42] LABS: Chloride 78 mmol/L (98-107); Potassium 3.4 mmol/L (3.5-5.1); Sodium 130 mmol/L (136-145)
[2024-10-28 06:44] LABS: Anion Gap 11.99999 (5-15); BUN/Creatinine Ratio 28.3 (10.0-20.0); Carbon Dioxide > 40 mmol/L (20-31)
[2024-10-28 06:46] LABS: Blood Urea Nitrogen 52 mg/dL (9-23); Glucose 134 mg/dL (74-106)
--- NOTE | 2024-10-28 11:18 | DVHPN2 ---
Progress Note Date Seen: Oct 28, 2024 Medical Necessity Reason Pt with a Central, PICC or Fol: Yes The following are medically ne: Dean Catheter Reason for dean catheter: Strict I&O Subjective Patient reports: No new complaints Review of Systems: Deferred Objective vital signs Vital Sign Date Time Temp Pulse Resp B/P (MAP) Pulse Ox O2 Delivery O2 Flow Rate FiO2 10/28/24 09:00 98.3 71 18 116/85 (95) 95 98.3 10/28/24 08:00 Nasal Cannula* 3 32 Total Intake and Output 10/27/24 10/27/24 10/28/24 15:00 23:00 07:00 Intake Total 637 ml 300 ml Output Total 1150 ml 900 ml Balance -513 ml -600 ml medications Current Medications Medications Dose Ordered Sig/Nadia Route Start Time Stop Time Status Last Admin Dose Admin Aspirin 81 mg DAILY PO 10/06/24 10:00 10/28/24 08:27 81 MG Ondansetron HCl 4 mg Q4HP PRN IV 10/05/24 20:45 10/25/24 08:29 4 MG Docusate Sodium 100 mg BIDPRN PRN PO 10/05/24 20:45 10/07/24 14:18 100 MG Nitroglycerin 0.4 mg Q5MINP PRN SL 10/05/24 22:30 Amiodarone HCl 200 mg Q12HR PO 10/07/24 15:00 10/28/24 08:21 200 MG Vancomycin HCl 250 ml @ 200 mls/hr Q12H IV 10/08/24 14:00 UNV Midodrine 10 mg TID@0600,1200,1800 PO 10/13/24 12:00 10/28/24 05:31 10 MG Acetaminophen 650 mg Q6HP PRN PO 10/15/24 16:45 10/28/24 08:26 650 MG Enteral Nutritional Formula 240 ml BIDWM PO 10/23/24 18:00 10/28/24 08:24 240 ML Pantoprazole Sodium 40 mg DAILY@0600 PO 10/26/24 06:00 10/28/24 05:31 40 MG Potassium Bicarbonate 25 meq TID PO 10/26/24 22:00 10/28/24 05:31 25 MEQ Bumetanide 1 mg DAILY PO 10/27/24 10:00 10/28/24 08:26 1 MG laboratory and microbiology Laboratory Tests 10/28/24 05:11 10/27/24 05:13 Test 10/28/24 05:11 Range/Units Serum Glucose 134 H 74-106 mg/dL Microbiology Date/Time Source Procedure Growth Status 10/23/24 11:25 Pleural Fluid Gram Stain - Final Complete 10/23/24 11:25 Pleural Fluid Aerobic Culture - Final Complete 10/06/24 12:31 Nose MRSA Screen - Final Complete 10/05/24 19:19 Blood Blood Culture - Final NO GROWTH AFTER 5 DAYS OF INCUBATION. Complete Problem List/Assessment/Plan Problem List/Assessment/Plan Acute kidney injury due to hypotension/cardiorenal etiology ckd cr 1.1 on admission severe systolic HF EF 15%, large pleural effusions s/p thoracentesis pericardial effusion afib RVR Hyponatremia Hypokalemia Metabolic alkalosis secondary to diuretics Recommendations holding p.o. Bumex today --can resume in 1-2 days K replacement Plan discussed with: Patient, Spouse Dietary Evaluation Review Comments: 1. Refer to CDE on DC for weight management 2. Continue current plan of care Expected Outcomes/Goals: To meet >75% estimated needs Fu 3-5 days DINA FORBES MD Oct 28, 2024 11:18
[2024-10-28] MEDS: POTASSIUM CHL 20 Meq TABLET PO SCH (12:24)
--- NOTE | 2024-10-28 22:55 | DVHPN2 ---
Progress Note - Dictate Date Seen: Oct 28, 2024 Medical Necessity Reason Pt with a Central, PICC or Fol: Yes The following are medically ne: Dean Catheter Reason for dean catheter: Strict I&O Subjective Patient was seen and evaluated in follow up. No overnight events. Patient comfortable in bed. K 3.4, CL 78, CO2 > 40, BUN 52, CATTLE DRIVER 1.84. Chest x-ray shows trace bilateral pleural effusions. Telemetry reviewed. vital signs Vital Sign Date Time Temp Pulse Resp B/P (MAP) Pulse Ox O2 Delivery O2 Flow Rate FiO2 10/28/24 17:08 97.2 78 18 127/81 (96) 95 97.2 10/28/24 08:00 Nasal Cannula* 3 32 Total Intake and Output 10/27/24 10/27/24 10/28/24 15:00 23:00 07:00 Intake Total 637 ml 300 ml Output Total 1150 ml 900 ml Balance -513 ml -600 ml medications Current Medications Medications Dose Ordered Sig/Nadia Route Start Time Stop Time Status Last Admin Dose Admin Aspirin 81 mg DAILY PO 10/06/24 10:00 10/28/24 08:27 81 MG Ondansetron HCl 4 mg Q4HP PRN IV 10/05/24 20:45 10/25/24 08:29 4 MG Docusate Sodium 100 mg BIDPRN PRN PO 10/05/24 20:45 10/07/24 14:18 100 MG Nitroglycerin 0.4 mg Q5MINP PRN SL 10/05/24 22:30 Amiodarone HCl 200 mg Q12HR PO 10/07/24 15:00 10/28/24 08:21 200 MG Vancomycin HCl 250 ml @ 200 mls/hr Q12H IV 10/08/24 14:00 UNV Midodrine 10 mg TID@0600,1200,1800 PO 10/13/24 12:00 10/28/24 17:44 10 MG Acetaminophen 650 mg Q6HP PRN PO 10/15/24 16:45 10/28/24 08:26 650 MG Enteral Nutritional Formula 240 ml BIDWM PO 10/23/24 18:00 10/28/24 08:24 240 ML Pantoprazole Sodium 40 mg DAILY@0600 PO 10/26/24 06:00 10/28/24 05:31 40 MG objective GENERAL: Alert and oriented x 3. No acute distress. Morbidly obese. EYES: PERRL, EOMI. Anicteric. HENT: Moist mucous membranes. LUNGS: Diminished breath sounds. CARDIOVASCULAR: Irregular rate and rhythm. ABDOMEN: Soft, nontender and nondistended. EXTREMITIES: +3 pitting edema. NEUROLOGIC: No focal neurological deficits. SKIN: Warm, dry. laboratory and microbiology Laboratory Tests 10/28/24 05:11 10/27/24 05:13 Test 10/28/24 05:11 Range/Units Serum Glucose 134 H 74-106 mg/dL Problem List Atrial fibrillation with rapid ventricular response, newly diagnosed. Left pleural effusion. Sepsis. Hyperkalemia. Acute kidney injury. Transaminitis. Prediabetes. History of alcoholism. Morbidly obese. Severe systolic HF EF 15%, large pleural effusions. Pericardial effusion. Assessment/Plan Continued all current supportive medical care. Amiodarone. Midodrine. Nitro SL. Aspirin. GI prophylactics. Tylenol for pain management . Additional plan as per the hospital course. Dietary Evaluation Review Comments: 1. Refer to CDE on DC for weight management 2. Continue current plan of care Expected Outcomes/Goals: To meet >75% estimated needs Fu 3-5 days Plan discussed with: Patient XIOMY JERONIMO MD Oct 28, 2024 18:16
[2024-10-29] VITALS (8 sets, daily range): BP systolic 106–125; BP diastolic 57–86; PULSE 71–82; RESP 15–19; TEMP 97.3–98.2; O2SAT 93–98
[2024-10-29 07:54] LABS: Calcium 10.1 mg/dL (8.7-10.4)
[2024-10-29 07:59] LABS: BUN/Creatinine Ratio 30.4 (10.0-20.0)
[2024-10-29 08:05] LABS: Chloride 79 mmol/L (98-107); Potassium 3.1 mmol/L (3.5-5.1); Sodium 129 mmol/L (136-145)
[2024-10-29 08:06] LABS: Anion Gap 9.99999 (5-15); Blood Urea Nitrogen 52 mg/dL (9-23); Glucose 131 mg/dL (74-106)
[2024-10-29 08:08] LABS: Carbon Dioxide > 40 mmol/L (20-31)
--- NOTE | 2024-10-29 11:08 | DVHPN2 ---
Progress Note Date Seen: Oct 29, 2024 Medical Necessity Reason Pt with a Central, PICC or Fol: Yes The following are medically ne: Dean Catheter Reason for dean catheter: Strict I&O Subjective Patient reports: Feels worse Objective vital signs Vital Sign Date Time Temp Pulse Resp B/P (MAP) Pulse Ox O2 Delivery O2 Flow Rate FiO2 10/29/24 08:40 97.3 73 16 125/57 (79) 98 97.3 10/28/24 20:00 Nasal Cannula* 3 32 Total Intake and Output 10/28/24 10/28/24 10/29/24 15:00 23:00 07:00 Intake Total 237 ml 180 ml 345 ml Output Total 950 ml 50 ml 1000 ml Balance -713 ml 130 ml -655 ml medications Current Medications Medications Dose Ordered Sig/Nadia Route Start Time Stop Time Status Last Admin Dose Admin Aspirin 81 mg DAILY PO 10/06/24 10:00 10/29/24 09:26 81 MG Ondansetron HCl 4 mg Q4HP PRN IV 10/05/24 20:45 10/25/24 08:29 4 MG Docusate Sodium 100 mg BIDPRN PRN PO 10/05/24 20:45 10/07/24 14:18 100 MG Nitroglycerin 0.4 mg Q5MINP PRN SL 10/05/24 22:30 Amiodarone HCl 200 mg Q12HR PO 10/07/24 15:00 10/29/24 09:26 200 MG Vancomycin HCl 250 ml @ 200 mls/hr Q12H IV 10/08/24 14:00 UNV Midodrine 10 mg TID@0600,1200,1800 PO 10/13/24 12:00 10/29/24 05:57 10 MG Acetaminophen 650 mg Q6HP PRN PO 10/15/24 16:45 10/29/24 06:00 650 MG Enteral Nutritional Formula 240 ml BIDWM PO 10/23/24 18:00 10/29/24 09:26 240 ML Pantoprazole Sodium 40 mg DAILY@0600 PO 10/26/24 06:00 10/29/24 05:57 40 MG Examination: LUNGS:Abnormal, CVS:Abnormal, SKIN:Abnormal laboratory and microbiology Laboratory Tests 10/29/24 05:32 10/27/24 05:13 Test 10/29/24 05:32 Range/Units Serum Glucose 131 H 74-106 mg/dL Microbiology Date/Time Source Procedure Growth Status 10/23/24 11:25 Pleural Fluid Gram Stain - Final Complete 10/23/24 11:25 Pleural Fluid Aerobic Culture - Final Complete 10/06/24 12:31 Nose MRSA Screen - Final Complete 10/05/24 19:19 Blood Blood Culture - Final NO GROWTH AFTER 5 DAYS OF INCUBATION. Complete Problem List/Assessment/Plan Problem List/Assessment/Plan 64 year old male w/ no previous medical followup admitted to hospital with sob diagnosed w/ new onset CHF EF 15% and transferred to ICU for Afib RVR Acute kidney injury due to hypotension ckd cr 1.1 on admission severe systolic HF EF 15%, large pleural effusions s/p thoracentesis pericardial effusion afib RVR serum bicarb elevated obtain VBG, will resume bumex and add diamox based on results as clinically volume overloaded patient did not tolerate entresto due to hypotension, now on midodrine and lasix IV, keep > 65 has low SBP due to poor cardiac function rate control metoprolol, amio, cardiology eval, fluid restriction US kidney left kidney not visualized, R kidney 12cm rec repeat US cardiology will come to / [facility] when stable guarded prognosis total care time 50mins Plan discussed with: Patient My Orders My Orders Orders - HUONG SHEPPARD MD Procedure Category Date Status Time Basic Metabolic Panel LAB 10/30/24 Verified 04:00 Venous Blood Gas RT 10/29/24 Logged 10:56 Chest Xray 1 View XY 10/29/24 Logged 10:59 Dietary Evaluation Review Comments: 1. Refer to CDE on DC for weight management 2. Continue current plan of care Expected Outcomes/Goals: To meet >75% estimated needs Fu 3-5 days HUONG SHEPPARD MD Oct 29, 2024 11:08
--- NOTE | 2024-10-29 12:07 | DVH ---
CHEST RADIOGRAPH Indication: chf Technique: Single frontal view of the chest was obtained Comparison: XY CHEST XRAY 1 VIEW on DOS: 10/27/24, XY CHEST PORTABLE on DOS: 10/23/24, XY CHEST PORTABL E on DOS: 10/22/24, XY CHEST XRAY 1 VIEW on DOS: 10/07/24, XY CHEST PORTABLE on DOS: 10/07/24, XY CHEST XR AY 1 VIEW on DOS: 10/27/24 FINDINGS: Lines and Tubes: None Lungs and Pleura: No focal consolidation. Similar trace bilateral pleural effusions. No pneumothorax. Cardiomediastinal contours: Cardiomegaly. Bones: No acute osseous abnormality. IMPRESSION: Similar trace bilateral pleural effusions.
--- NOTE | 2024-10-29 14:25 | DVHPN2 ---
Subjective Patient still some shortness of breath, lower extremity edema still significant despite complete diuresis. Patient complains of ongoing weakness and leg swelling being bothersome. Reviewed: Care Plan, H&P, Labs, Medications, Radiology Changes from previous H/P or p: No Changes General: Per HPI Eyes: No Pain, No Vision change, No Conjunctivae inflammation, No Eyelid inflammation, No Other, No Redness ENT: No Ear pain, No Ear discharge, No Nose pain, No Nose discharge, No Nose congestion, No Mouth pain, No Mouth swelling, No Throat pain, No Throat swelling, No Other Cardiovascular: No Chest Pain; Palpitations; No Orthopnea, No Paroxysmal Noc. Dyspnea, No Edema, No Lt Headedness, No Other Respiratory: No Cough, No Dry; Shortness of breath; No SOB with excertion, No Wheezing, No Hemoptysis, No Pleuritic Pain, No Sputum, No Other Gastrointestinal: No Nausea, No Vomiting, No Abdominal Pain, No Diarrhea, No Constipation, No Melena, No Hematochezia, No Other Genitourinary: No Dysuria, No Frequency, No Incontinence, No Hematuria, No Retention, No Other Musculoskeletal: No other, No neck pain, No shoulder pain, No arm pain, No back pain, No hand pain, No leg pain, No foot pain Skin: No Rash, No Lesions, No Jaundice, No Bruising, No Other Objective Vitals Vital Signs Date Time Temp Pulse Resp B/P (MAP) Pulse Ox O2 Delivery O2 Flow Rate FiO2 10/29/24 13:00 98.2 82 16 123/84 (97) 94 98.2 10/28/24 20:00 Nasal Cannula* 3 32 Intake/Output Intake and Output 10/29/24 07:00 Intake Total 762 ml Output Total 2000 ml Balance -1238 ml Intake Oral 762 ml Output Urine Total 2000 ml Exam GEN: Healthy appearing, well-developed, NAD. HEENT: NC/AT; MMM. CV: RRR, no m/r/g. LUNGS: Decreased air movement in all lung ortiz. ABD: Soft, NT/ND, NBS, no masses or organomegaly. EXT: skin Warm, well perfused. no rashes. Edema due to 4+ up to knees bilaterally. NEURO: Ambulating with no limitations. No focal deficits. General Appearance: Alert, Oriented X3, mild distress HEENT: Atraumatic, PERRLA, EOMI, Mucous membr. moist/pink Neck: Supple Lungs: Other (Bilateral rhonchi) Cardiovascular: Regular rate, Normal S1, Normal S2, No murmurs Abdomen: Normal bowel sounds, Soft, No tenderness Extremities: Other (2+ edema B) Neuro: Cranial nerves 3-12 NL Psych/Mental Status: Mental status NL Medications Current Medications Medications Dose Ordered Sig/Nadia Route Start Time Stop Time Status Last Admin Dose Admin Aspirin 81 mg DAILY PO 10/06/24 10:00 10/29/24 09:26 81 MG Ondansetron HCl 4 mg Q4HP PRN IV 10/05/24 20:45 10/25/24 08:29 4 MG Docusate Sodium 100 mg BIDPRN PRN PO 10/05/24 20:45 10/07/24 14:18 100 MG Nitroglycerin 0.4 mg Q5MINP PRN SL 10/05/24 22:30 Amiodarone HCl 200 mg Q12HR PO 10/07/24 15:00 10/29/24 09:26 200 MG Vancomycin HCl 250 ml @ 200 mls/hr Q12H IV 10/08/24 14:00 UNV Midodrine 10 mg TID@0600,1200,1800 PO 10/13/24 12:00 10/29/24 05:57 10 MG Acetaminophen 650 mg Q6HP PRN PO 10/15/24 16:45 10/29/24 06:00 650 MG Enteral Nutritional Formula 240 ml BIDWM PO 10/23/24 18:00 10/29/24 09:26 240 ML Pantoprazole Sodium 40 mg DAILY@0600 PO 10/26/24 06:00 10/29/24 05:57 40 MG Acetazolamide Sodium 500 mg DAILY IV 10/29/24 13:00 Laboratory Results Laboratory Tests 10/27/24 05:13 10/29/24 05:32 Chemistry Test 10/29/24 05:32 Calcium Level 10.1 mg/dL (8.7-10.4) Cardiac Markers Test 10/29/24 05:32 B-Type Natriuretic Peptide 58.06 pg/mL (0-100) Urinalysis Test 10/05/24 18:45 10/06/24 17:49 Urine Color Yellow (Yellow) Urine Clarity Clear (Clear) Urine pH 6.0 (5.0-9.0) Urine Specific [place] 1.031 (1.001-1.035) Urine Protein 2+ (Negative) H Urine Ketones Negative (Negative) Urine Blood Negative /uL (Negative) Urine Nitrite Negative (Negative) Urine Bilirubin Negative (Negative) Urine Urobilinogen 3 mg/dL (Negative) H Urine Leukocyte Esterase Negative /uL (Negative) Urine RBC 2 /hpf (0 - 3) Urine Microscopic WBC 8 /HPF (0-3) H Urine Squamous Epithelial Cells Few /hpf (<5) Urine Bacteria Few /hpf (None Seen) H Urine Hyaline Casts Few /lpf (0 - 2) Urine Mucus Few (None Seen) Urine Glucose Trace mg/dL (Normal) Urine Creatinine 97.15 mg/dL (30.0-125.0) Urine Sodium < 10 mmol/L (40-220) L Urine Total Protein 84.0 mg/dL (1-14) H Blood Gas Results Test 10/29/24 11:13 FiO2 % 32.0 Microbiology Microbiology Date/Time Source Procedure Growth Status 10/23/24 11:25 Pleural Fluid Gram Stain - Final Complete 10/23/24 11:25 Pleural Fluid Aerobic Culture - Final Complete 10/06/24 12:31 Nose MRSA Screen - Final Complete 10/05/24 19:19 Blood Blood Culture - Final NO GROWTH AFTER 5 DAYS OF INCUBATION. Complete Labs and/or images reviewed: Labs reviewed by me, Image(s) reviewed by me Assessment/Plan Assessment/Plan 10/29- covering patient for today for primary. Patient has been here for almost 1 month. Multiple comorbidities. Severe depressed systolic function 15% with global hypokinesis.. Patient also have CKD, protein urea,. Hyponatremia likely from volume overload. Nephrology following closely, appreciate recommendations. Patient is being started on Diamox because of significant alkalosis has been present for last 3 or 4 days. The diuresis was stopped due to this reason. Patient remains edematous. Patient may have contaminant kidney disease causing possible nephrotic syndrome?. Patient has AFib and needs anticoagulation. Start Eliquis, keep patient on tele. Agree with Nephrology plan. Assessment/Plan Acute CHF exacerbation with systolic dysfunction AFib with RVR , currently rate controlled Left-sided pleural effusion status post thoracentesis Acute kidney injury suspected secondary to vasomotor nephropathy Cardiomyopathy with EF of 15% History of alcoholism Morbid obesity class I Hypotension Pericardial effusion PLAN: Continue Diamox, amiodarone 200, aspirin 81, midodrine 10 t.i.d.,, nutritional supplement b.i.d. with meal Nepro, Protonix p.o. 40 daily, Daily BNP maintain potassium more than 3.5. Continue with LifeVest. Continuing with Eliquis. We have stopped Bumex,metoprolol , digoxin Continue with dopamine - have ectopies, if persist will dc Patient has been Explained he had cardiomyopathy with EF of 15%. Patient was prior on The dobutamine and dopamine Continue current care. Encourage the patient to work with physical therapy to be out of bed and ambulate Plan discussed with: Patient My Orders Orders - DESMOND MOODY MD Procedure Category Date Status Time Transfer Orders XFER 10/29/24 Transmitted 14:00 Date of Service: Oct 29, 2024 Billing Provider: DESMOND MOODY MD Common Visit Codes: [id number] INP/OBS CARE(HIGH) DESMOND MOODY MD Oct 29, 2024 14:25
[2024-10-29] MEDS: POTASSIUM EFFERVESENT TAB 25 MEQ PO ONE (15:03)
[2024-10-29] MEDS: acetaZOLAMIDE SODIUM 500 MG VL IV SCH (15:03)
[2024-10-29] MEDS: APIXABAN 5 MG TAB PO SCH (21:06)
--- NOTE | 2024-10-29 22:47 | DVHPN2 ---
Progress Note - Dictate Date Seen: Oct 29, 2024 Medical Necessity Reason Pt with a Central, PICC or Fol: Yes The following are medically ne: Dean Catheter Reason for dean catheter: Strict I&O Subjective Patient was seen and evaluated in follow up. Patient is c/o SOB, BLE edema an weakness. Patient is on 3 LPM NC. NA 129, K 3.1, CO2 >40, BUN 52, Engine Mechanic 1.71. Telemetry reviewed. vital signs Vital Sign Date Time Temp Pulse Resp B/P (MAP) Pulse Ox O2 Delivery O2 Flow Rate FiO2 10/29/24 20:00 81 10/29/24 16:47 97.7 16 109/82 (91) 93 97.7 10/29/24 08:00 Nasal Cannula* 3 32 Total Intake and Output 10/28/24 10/28/24 10/29/24 15:00 23:00 07:00 Intake Total 237 ml 180 ml 345 ml Output Total 950 ml 50 ml 1000 ml Balance -713 ml 130 ml -655 ml medications Current Medications Medications Dose Ordered Sig/Nadia Route Start Time Stop Time Status Last Admin Dose Admin Aspirin 81 mg DAILY PO 10/06/24 10:00 10/29/24 09:26 81 MG Ondansetron HCl 4 mg Q4HP PRN IV 10/05/24 20:45 10/25/24 08:29 4 MG Docusate Sodium 100 mg BIDPRN PRN PO 10/05/24 20:45 10/07/24 14:18 100 MG Nitroglycerin 0.4 mg Q5MINP PRN SL 10/05/24 22:30 Amiodarone HCl 200 mg Q12HR PO 10/07/24 15:00 10/29/24 21:06 200 MG Vancomycin HCl 250 ml @ 200 mls/hr Q12H IV 10/08/24 14:00 UNV Midodrine 10 mg TID@0600,1200,1800 PO 10/13/24 12:00 10/29/24 18:48 10 MG Acetaminophen 650 mg Q6HP PRN PO 10/15/24 16:45 10/29/24 21:09 650 MG Enteral Nutritional Formula 240 ml BIDWM PO 10/23/24 18:00 10/29/24 18:00 240 ML Pantoprazole Sodium 40 mg DAILY@0600 PO 10/26/24 06:00 10/29/24 05:57 40 MG Acetazolamide Sodium 500 mg DAILY IV 10/29/24 13:00 10/29/24 15:03 500 MG Apixaban 5 mg BID PO 10/29/24 22:00 10/29/24 21:06 5 MG objective GENERAL: Alert and oriented x 3. No acute distress. Morbidly obese. EYES: PERRL, EOMI. Anicteric. HENT: Moist mucous membranes. LUNGS: Diminished breath sounds. CARDIOVASCULAR: Irregular rate and rhythm. ABDOMEN: Soft, nontender and nondistended. EXTREMITIES: +3 pitting edema. NEUROLOGIC: No focal neurological deficits. SKIN: Warm, dry. laboratory and microbiology Laboratory Tests 10/29/24 05:32 10/27/24 05:13 Test 10/29/24 05:32 Range/Units Serum Glucose 131 H 74-106 mg/dL Problem List Atrial fibrillation with rapid ventricular response, newly diagnosed. Left pleural effusion. Sepsis. Hyperkalemia. Acute kidney injury. Transaminitis. Prediabetes. History of alcoholism. Morbidly obese. Severe systolic HF EF 15%, large pleural effusions. Pericardial effusion. Assessment/Plan Continued all current supportive medical care. Amiodarone. Midodrine. Nitro SL. Aspirin. GI prophylactics. Tylenol for pain management . Additional plan as per the hospital course. Dietary Evaluation Review Comments: 1. Refer to CDE on DC for weight management 2. Continue current plan of care Expected Outcomes/Goals: To meet >75% estimated needs Fu 3-5 days Plan discussed with: Patient XIOMY JERONIMO MD Oct 29, 2024 22:47
[2024-10-30] VITALS (9 sets, daily range): BP systolic 94–110; BP diastolic 68–74; PULSE 61–83; RESP 17–19; TEMP 97.5–99.1; O2SAT 93–96
[2024-10-30 07:37] LABS: Hematocrit 41.9 % (41.0-53.0); Hemoglobin 14.1 g/dL (13.5-17.5); Mean Corpuscular Hemoglobin 30.0 pg (28.0-32.0); Mean Corpuscular Volume 89.6 fL (80.0-100.0); Nucleated Red Blood Cells % 0.2 %
[2024-10-30 07:53] LABS: Alanine Aminotransferase 27 U/L (7-40); Alkaline Phosphatase 70 U/L (46-116); BUN/Creatinine Ratio 28.0 (10.0-20.0); Calcium 10.0 mg/dL (8.7-10.4); Total Protein 5.8 g/dL (5.7-8.2)
[2024-10-30 07:54] LABS: Anion Gap 9.99999 (5-15); Bilirubin, Total 1.7 mg/dL (0.2-1.0); Blood Urea Nitrogen 49 mg/dL (9-23); Chloride 78 mmol/L (98-107); Glucose 144 mg/dL (74-106); Potassium 2.6 mmol/L (3.5-5.1); Sodium 128 mmol/L (136-145)
[2024-10-30 07:55] LABS: Carbon Dioxide > 40 mmol/L (20-31)
[2024-10-30 07:57] LABS: Albumin 3.9 g/dL (3.2-4.8)
--- NOTE | 2024-10-30 10:08 | DVHPN2 ---
Progress Note Date Seen: Oct 30, 2024 Medical Necessity Reason Pt with a Central, PICC or Fol: Yes The following are medically ne: Dean Catheter Reason for dean catheter: Bladder Retention/Obstruc, Strict I&O Subjective Patient reports: No new complaints Objective vital signs Vital Sign Date Time Temp Pulse Resp B/P (MAP) Pulse Ox O2 Delivery O2 Flow Rate FiO2 10/30/24 09:00 97.8 61 17 101/74 (83) 95 97.8 10/29/24 20:00 Nasal Cannula* 3 32 Total Intake and Output 10/29/24 10/29/24 10/30/24 15:00 23:00 07:00 Intake Total 600 ml 800 ml Output Total 750 ml 1200 ml Balance -150 ml -400 ml medications Current Medications Medications Dose Ordered Sig/Nadia Route Start Time Stop Time Status Last Admin Dose Admin Aspirin 81 mg DAILY PO 10/06/24 10:00 10/29/24 09:26 81 MG Ondansetron HCl 4 mg Q4HP PRN IV 10/05/24 20:45 10/25/24 08:29 4 MG Docusate Sodium 100 mg BIDPRN PRN PO 10/05/24 20:45 10/07/24 14:18 100 MG Nitroglycerin 0.4 mg Q5MINP PRN SL 10/05/24 22:30 Amiodarone HCl 200 mg Q12HR PO 10/07/24 15:00 10/29/24 21:06 200 MG Vancomycin HCl 250 ml @ 200 mls/hr Q12H IV 10/08/24 14:00 UNV Midodrine 10 mg TID@0600,1200,1800 PO 10/13/24 12:00 10/30/24 05:49 10 MG Acetaminophen 650 mg Q6HP PRN PO 10/15/24 16:45 10/30/24 05:49 650 MG Enteral Nutritional Formula 240 ml BIDWM PO 10/23/24 18:00 10/30/24 08:00 240 ML Pantoprazole Sodium 40 mg DAILY@0600 PO 10/26/24 06:00 10/30/24 05:49 40 MG Acetazolamide Sodium 500 mg DAILY IV 10/29/24 13:00 10/29/24 15:03 500 MG Apixaban 5 mg BID PO 10/29/24 22:00 10/29/24 21:06 5 MG Examination: GENERAL:Abnormal, LUNGS:Abnormal, CVS:Abnormal, SKIN:Abnormal laboratory and microbiology Laboratory Tests 10/30/24 06:52 Test 10/30/24 06:52 Range/Units Serum Glucose 144 H 74-106 mg/dL Microbiology Date/Time Source Procedure Growth Status 10/23/24 11:25 Pleural Fluid Gram Stain - Final Complete 10/23/24 11:25 Pleural Fluid Aerobic Culture - Final Complete 10/06/24 12:31 Nose MRSA Screen - Final Complete 10/05/24 19:19 Blood Blood Culture - Final NO GROWTH AFTER 5 DAYS OF INCUBATION. Complete Problem List/Assessment/Plan Problem List/Assessment/Plan 64 year old male w/ no previous medical followup admitted to hospital with sob diagnosed w/ new onset CHF EF 15% and transferred to ICU for Afib RVR Acute kidney injury due to hypotension ckd cr 1.1 on admission severe systolic HF EF 15%, large pleural effusions s/p thoracentesis pericardial effusion afib RVR metabolic alkalosis serum bicarb elevated bumex held, diamox today, potassium replacement, continue negative balance, repeat BMP today patient did not tolerate entresto due to hypotension, now on midodrine and rate control metoprolol, amio, cardiology eval, fluid restriction US kidney left kidney not visualized, R kidney 12cm rec repeat US cardiology will come to / [facility] when stable guarded prognosis total care time 50mins Plan discussed with: Patient My Orders My Orders Orders - HUONG SHEPPARD MD Procedure Category Date Status Time Venous Blood Gas RT 10/29/24 Logged 10:56 Chest Xray 1 View XY 10/29/24 Resulted 10:59 Acetazolamide PHA 10/29/24 In Process Injection (Diamox 13:00 Potassium Effervesent PHA 10/30/24 Transmitted Tab (Klor-Con/Ef) 12:00 Basic Metabolic Panel LAB 10/30/24 Transmitted 14:00 Dietary Evaluation Review Comments: 1. Refer to CDE on DC for weight management 2. Continue current plan of care Expected Outcomes/Goals: To meet >75% estimated needs Fu 3-5 days HUONG SHEPPARD MD Oct 30, 2024 10:08
[2024-10-30] MEDS: POTASSIUM EFFERVESENT TAB 25 MEQ PO ONE (10:36)
[2024-10-30] MEDS: POTASSIUM EFFERVESENT TAB 25 MEQ PO SCH (12:33)
[2024-10-30] MEDS ORDERED: POTASSIUM CHL 20MEQ/100ML 100 ML IV SCH ×3 (14:00→16:45)
--- NOTE | 2024-10-30 14:07 | DVHPN2 ---
Assessment/Plan Assessment/Plan progress note 64 M with HFrEF 15%, afib on Eliquis, recurrent PLEF, morbid obesity with prolonged ICU and medsurge admission. seen today during rounds. persistent hypokalemia, difficult to diurese with PO meds. will optimize and attempt conversion further Physical exam morbidly obese aox4 JVD cannot be observed MMM PERLLA mild crackles s1 s2 irregular abdomen soft b/l LE edema Labs ekg imaging reviewed Assessment and plan Acute CHF exacerbation with systolic dysfunction Heart failure with reduced ejection fraction 15% Pericardial effusion not in tamponade Recurrent pleural effusion s/p throacentesis AFib with RVR , currently rate controlled Acute kidney injury 2/2 VMN now CKD 3b History of alcoholism Morbid obesity class I OHS/JEN with chronic CO2 retention Hypotension on midodrine Pericardial effusion Persistent hypokalemia c/w Diamox aim for -500 daily failed conversion to po, will reattempt on a later date amio for rate control potassium replacement scheduled, daily chem while on diuresis midodrine s/p dobu and dopa lifevest bedside c/w Eliquis and asa pt protonix diet mech soft dvt ppx on eliquis full code Plan discussed with: Patient Date of Service: Oct 30, 2024 Billing Provider: IDALMIS DIAZ MD Common Visit Codes: [id number] INP/OBS CARE(HIGH) IDALMIS DIAZ MD Oct 30, 2024 14:07
[2024-10-30 14:46] LABS: Potassium 3.7 mmol/L (3.5-5.1)
[2024-10-30 14:47] LABS: Calcium 9.9 mg/dL (8.7-10.4)
[2024-10-30 14:52] LABS: BUN/Creatinine Ratio 30.7 (10.0-20.0)
[2024-10-30 14:53] LABS: Chloride 77 mmol/L (98-107); Sodium 126 mmol/L (136-145)
[2024-10-30 14:54] LABS: Anion Gap 8.99999 (5-15); Blood Urea Nitrogen 58 mg/dL (9-23); Glucose 198 mg/dL (74-106)
[2024-10-30 14:56] LABS: Carbon Dioxide > 40 mmol/L (20-31)
[2024-10-30] MEDS: diphenhdrAMINE HCL 50 MG/1 ML VL IV ONE (17:42)
[2024-10-30] MEDS: ALBUMIN 25% 100 ML IV ONE (17:44)
[2024-10-30] MEDS: acetaZOLAMIDE SODIUM 500 MG VL IV ONE (17:45)
[2024-10-30] MEDS: POTASSIUM CHL 20MEQ/100ML 100 ML IV SCH (20:07)
[2024-10-30] MEDS ORDERED: POTASSIUM EFFERVESENT TAB 25 MEQ PO SCH (22:00)
--- NOTE | 2024-10-30 23:59 | DVHPN2 ---
Progress Note - Dictate Date Seen: Oct 30, 2024 Medical Necessity Reason Pt with a Central, PICC or Fol: Yes The following are medically ne: Dean Catheter Reason for dean catheter: Bladder Retention/Obstruc, Strict I&O Subjective Patient was seen and evaluated in follow up. No overnight events. Patient reports improvement in SOB. Patient has persistent hypokalemia, potassium replaced. WBC 11.2. Telemetry reviewed. vital signs Vital Sign Date Time Temp Pulse Resp B/P (MAP) Pulse Ox O2 Delivery O2 Flow Rate FiO2 10/30/24 21:00 98.3 75 19 110/74 (86) 96 98.3 10/30/24 20:00 Nasal Cannula* 3 32 Total Intake and Output 10/29/24 10/29/24 10/30/24 14:59 22:59 06:59 Intake Total 600 ml 800 ml Output Total 750 ml 1200 ml Balance -150 ml -400 ml medications Current Medications Medications Dose Ordered Sig/Nadia Route Start Time Stop Time Status Last Admin Dose Admin Aspirin 81 mg DAILY PO 10/06/24 10:00 10/30/24 10:36 81 MG Ondansetron HCl 4 mg Q4HP PRN IV 10/05/24 20:45 10/25/24 08:29 4 MG Amiodarone HCl 200 mg Q12HR PO 10/07/24 15:00 10/30/24 21:36 200 MG Vancomycin HCl 250 ml @ 200 mls/hr Q12H IV 10/08/24 14:00 UNV Midodrine 10 mg TID@0600,1200,1800 PO 10/13/24 12:00 10/30/24 18:29 10 MG Acetaminophen 650 mg Q6HP PRN PO 10/15/24 16:45 10/30/24 21:36 650 MG Enteral Nutritional Formula 240 ml BIDWM PO 10/23/24 18:00 10/30/24 18:28 240 ML Pantoprazole Sodium 40 mg DAILY@0600 PO 10/26/24 06:00 10/30/24 05:49 40 MG Acetazolamide Sodium 500 mg DAILY IV 10/29/24 13:00 10/30/24 10:36 500 MG Apixaban 5 mg BID PO 10/29/24 22:00 10/30/24 21:36 5 MG Potassium Bicarbonate 50 meq BID PO 10/31/24 10:00 objective GENERAL: Alert and oriented x 3. No acute distress. Morbidly obese. EYES: PERRL, EOMI. Anicteric. HENT: Moist mucous membranes. LUNGS: Diminished breath sounds. CARDIOVASCULAR: Irregular rate and rhythm. ABDOMEN: Soft, nontender and nondistended. EXTREMITIES: +3 pitting edema. NEUROLOGIC: No focal neurological deficits. SKIN: Warm, dry. laboratory and microbiology Laboratory Tests 10/30/24 14:10 10/30/24 06:52 Test 10/30/24 14:10 Range/Units Serum Glucose 198 H 74-106 mg/dL Problem List Atrial fibrillation with rapid ventricular response, newly diagnosed. Left pleural effusion. Sepsis. Hyperkalemia. Acute kidney injury. Transaminitis. Prediabetes. History of alcoholism. Morbidly obese. Severe systolic HF EF 15%, large pleural effusions. Pericardial effusion. Assessment/Plan Continued all current supportive medical care. Amiodarone. Midodrine. Nitro SL. Aspirin. GI prophylactics. Tylenol for pain management . Additional plan as per the hospital course. Dietary Evaluation Review Comments: 1. Refer to CDE on DC for weight management 2. Continue current plan of care Expected Outcomes/Goals: To meet >75% estimated needs Fu 3-5 days Plan discussed with: Patient XIOMY JERONIMO MD Oct 30, 2024 23:59
[2024-10-31] VITALS (8 sets, daily range): BP systolic 99–121; BP diastolic 59–89; PULSE 64–85; RESP 17–19; TEMP 97.3–98.3; O2SAT 94–96
[2024-10-31 08:02] LABS: Hematocrit 42.2 % (41.0-53.0); Hemoglobin 14.3 g/dL (13.5-17.5); Mean Corpuscular Hemoglobin 30.5 pg (28.0-32.0); Mean Corpuscular Volume 90.0 fL (80.0-100.0); Nucleated Red Blood Cells % 0.0 %
[2024-10-31 08:04] LABS: Calcium 10.2 mg/dL (8.7-10.4)
[2024-10-31 08:08] LABS: BUN/Creatinine Ratio 27.4 (10.0-20.0)
[2024-10-31 08:20] LABS: Anion Gap 8.99999 (5-15); Blood Urea Nitrogen 49 mg/dL (9-23); Chloride 78 mmol/L (98-107); Glucose 132 mg/dL (74-106); Magnesium 2.7 mg/dL (1.6-2.6); Sodium 127 mmol/L (136-145)
[2024-10-31 08:21] LABS: Carbon Dioxide > 40 mmol/L (20-31); Potassium 2.4 mmol/L (3.5-5.1)
[2024-10-31] MEDS: POTASSIUM EFFERVESENT TAB 25 MEQ PO SCH (09:00)
[2024-10-31] MEDS: POTASSIUM CHL 20MEQ/100ML 100 ML IV SCH (09:02)
[2024-10-31] MEDS: SPIRONOLACTONE 25 MG TAB PO SCH (09:02)
[2024-10-31] MEDS ORDERED: POTASSIUM EFFERVESENT TAB 25 MEQ PO SCH (10:00)
[2024-10-31 10:27] LABS: Protein, Urine 29.8 mg/dL (1-14)
--- NOTE | 2024-10-31 11:54 | DVHPN2 ---
Assessment/Plan Assessment/Plan progress note 64 M with HFrEF 15%, afib on Eliquis, recurrent PLEF, morbid obesity with prolonged ICU and medsurge admission. seen today during rounds. adding aldactone, allergic reaction with diamox, switch to bumex. Physical exam morbidly obese aox4 JVD cannot be observed MMM PERLLA mild crackles s1 s2 irregular abdomen soft b/l LE edema Labs ekg imaging reviewed Assessment and plan Acute CHF exacerbation with systolic dysfunction Heart failure with reduced ejection fraction 15% Pericardial effusion not in tamponade Recurrent pleural effusion s/p throacentesis AFib with RVR , currently rate controlled Acute kidney injury 2/2 VMN now CKD 3b History of alcoholism Morbid obesity class I OHS/JEN with chronic CO2 retention Hypotension on midodrine Pericardial effusion Persistent hypokalemia dc diamox switch to bumex aim for -500 daily failed conversion to po, will reattempt on a later date amio for rate control potassium replacement scheduled, daily chem while on diuresis midodrine s/p dobu and dopa lifevest bedside c/w Eliquis and asa pt protonix diet mech soft dvt ppx on eliquis full code Plan discussed with: Patient My Orders Orders - IDALMIS DIAZ MD Procedure Category Date Status Time * Wound Consult CONS 10/30/24 Transmitted Potassium Effervesent PHA 10/31/24 In Process Tab (Klor-Con/Ef) 10:00 Potassium Chl PHA 10/31/24 In Process 20meq/100ml 08:30 Spironolactone PHA 10/31/24 In Process (Aldactone) 10:00 Date of Service: Oct 31, 2024 Billing Provider: IDALMIS DIAZ MD Common Visit Codes: [id number] INP/OBS CARE(HIGH) IDALMIS DIAZ MD Oct 31, 2024 11:54
--- NOTE | 2024-10-31 14:13 | DVHPN2 ---
Progress Note Date Seen: Oct 31, 2024 Medical Necessity Reason Pt with a Central, PICC or Fol: Yes The following are medically ne: Dean Catheter Reason for dean catheter: Bladder Retention/Obstruc, Strict I&O Objective vital signs Vital Sign Date Time Temp Pulse Resp B/P (MAP) Pulse Ox O2 Delivery O2 Flow Rate FiO2 10/31/24 12:35 98.0 75 17 114/89 (97) 94 98.0 10/31/24 08:00 Nasal Cannula* 3 32 Total Intake and Output 10/30/24 10/30/24 10/31/24 15:00 23:00 07:00 Intake Total 920 ml 400 ml Output Total 950 ml 750 ml Balance -30 ml -350 ml medications Current Medications Medications Dose Ordered Sig/Nadia Route Start Time Stop Time Status Last Admin Dose Admin Aspirin 81 mg DAILY PO 10/06/24 10:00 10/31/24 09:01 81 MG Ondansetron HCl 4 mg Q4HP PRN IV 10/05/24 20:45 10/25/24 08:29 4 MG Amiodarone HCl 200 mg Q12HR PO 10/07/24 15:00 10/31/24 09:01 200 MG Vancomycin HCl 250 ml @ 200 mls/hr Q12H IV 10/08/24 14:00 UNV Midodrine 10 mg TID@0600,1200,1800 PO 10/13/24 12:00 10/31/24 12:06 10 MG Acetaminophen 650 mg Q6HP PRN PO 10/15/24 16:45 10/31/24 12:06 650 MG Enteral Nutritional Formula 240 ml BIDWM PO 10/23/24 18:00 10/31/24 08:07 240 ML Pantoprazole Sodium 40 mg DAILY@0600 PO 10/26/24 06:00 10/31/24 05:42 40 MG Apixaban 5 mg BID PO 10/29/24 22:00 10/31/24 09:02 5 MG Potassium Bicarbonate 50 meq BID PO 10/31/24 10:00 10/31/24 09:00 50 MEQ Spironolactone 25 mg DAILY PO 10/31/24 10:00 10/31/24 09:02 25 MG Bumetanide 1.5 mg DAILY PO 11/01/24 10:00 Examination: GENERAL:Abnormal, LUNGS:Abnormal, CVS:Abnormal, ABDOMEN:Abnormal, SKIN:Abnormal laboratory and microbiology Laboratory Tests 10/31/24 07:39 Test 10/31/24 07:39 Range/Units Serum Glucose 132 H 74-106 mg/dL Microbiology Date/Time Source Procedure Growth Status 10/23/24 11:25 Pleural Fluid Gram Stain - Final Complete 10/23/24 11:25 Pleural Fluid Aerobic Culture - Final Complete 10/06/24 12:31 Nose MRSA Screen - Final Complete 10/05/24 19:19 Blood Blood Culture - Final NO GROWTH AFTER 5 DAYS OF INCUBATION. Complete Problem List/Assessment/Plan Problem List/Assessment/Plan 64 year old male w/ no previous medical followup admitted to hospital with sob diagnosed w/ new onset CHF EF 15% and transferred to ICU for Afib RVR Acute kidney injury due to hypotension ckd cr 1.1 on admission severe systolic HF EF 15%, large pleural effusions s/p thoracentesis pericardial effusion afib RVR metabolic alkalosis serum bicarb elevated need to continue diamox for alkalosis if pH still elevated as it will worsen in presence of loop diuretics bumex held, diamox today, potassium replacement, continue negative balance rate control metoprolol, amio, cardiology eval, fluid restriction US kidney left kidney not visualized, R kidney 12cm rec repeat US cardiology discussed with family and patient at bedside if unable to achieve fluid removal with medical therapy may require pure ultrafiltration on dialysis. He is a high risk patient however because of history of dysrhythmias and severe systolic heart failure will come to / [facility] when stable guarded prognosis total care time 50mins Plan discussed with: Patient My Orders My Orders Orders - HUONG SHEPPARD MD Procedure Category Date Status Time Abg W/ Co-Ox RT 10/31/24 Transmitted 14:10 Dietary Evaluation Review Comments: 1. Refer to CDE on DC for weight management 2. Continue current plan of care Expected Outcomes/Goals: To meet >75% estimated needs Fu 3-5 days HUONG SHEPPARD MD Oct 31, 2024 14:13
[2024-10-31 16:34] LABS: Base Excess 14.5 mmol/L (-2.0-3.0)
[2024-10-31] MEDS: acetaZOLAMIDE SODIUM 500 MG VL IV SCH (22:39)
--- NOTE | 2024-10-31 22:58 | DVHPN2 ---
Progress Note - Dictate Date Seen: Oct 31, 2024 Medical Necessity Reason Pt with a Central, PICC or Fol: Yes The following are medically ne: Dean Catheter Reason for dean catheter: Bladder Retention/Obstruc, Strict I&O Subjective Patient was seen and evaluated in follow up. Patient reports an allergic reaction with Diamox, patient was switched to Bumex. WBC 11.1, NA 127, K 2.4, CL 78, CO2 > 40, BUN 49, AUTO OVERHAULER 1.79. Telemetry reviewed. vital signs Vital Sign Date Time Temp Pulse Resp B/P (MAP) Pulse Ox O2 Delivery O2 Flow Rate FiO2 10/31/24 12:35 98.0 75 17 114/89 (97) 94 98.0 10/31/24 08:00 Nasal Cannula* 3 32 Total Intake and Output 10/30/24 10/30/24 10/31/24 15:00 23:00 07:00 Intake Total 920 ml 400 ml Output Total 950 ml 750 ml Balance -30 ml -350 ml medications Current Medications Medications Dose Ordered Sig/Nadia Route Start Time Stop Time Status Last Admin Dose Admin Aspirin 81 mg DAILY PO 10/06/24 10:00 10/31/24 09:01 81 MG Ondansetron HCl 4 mg Q4HP PRN IV 10/05/24 20:45 10/25/24 08:29 4 MG Amiodarone HCl 200 mg Q12HR PO 10/07/24 15:00 10/31/24 09:01 200 MG Vancomycin HCl 250 ml @ 200 mls/hr Q12H IV 10/08/24 14:00 UNV Midodrine 10 mg TID@0600,1200,1800 PO 10/13/24 12:00 10/31/24 12:06 10 MG Acetaminophen 650 mg Q6HP PRN PO 10/15/24 16:45 10/31/24 12:06 650 MG Enteral Nutritional Formula 240 ml BIDWM PO 10/23/24 18:00 10/31/24 08:07 240 ML Pantoprazole Sodium 40 mg DAILY@0600 PO 10/26/24 06:00 10/31/24 05:42 40 MG Apixaban 5 mg BID PO 10/29/24 22:00 10/31/24 09:02 5 MG Potassium Bicarbonate 50 meq BID PO 10/31/24 10:00 10/31/24 09:00 50 MEQ Spironolactone 25 mg DAILY PO 10/31/24 10:00 10/31/24 09:02 25 MG Acetazolamide Sodium 500 mg Q12HR IV 10/31/24 22:00 UNV objective GENERAL: Alert and oriented x 3. No acute distress. Morbidly obese. EYES: PERRL, EOMI. Anicteric. HENT: Moist mucous membranes. LUNGS: Diminished breath sounds. CARDIOVASCULAR: Irregular rate and rhythm. ABDOMEN: Soft, nontender and nondistended. EXTREMITIES: +3 pitting edema. NEUROLOGIC: No focal neurological deficits. SKIN: Warm, dry. laboratory and microbiology Laboratory Tests 10/31/24 07:39 Test 10/31/24 07:39 Range/Units Serum Glucose 132 H 74-106 mg/dL Problem List Atrial fibrillation with rapid ventricular response, newly diagnosed. Left pleural effusion. Sepsis. Hyperkalemia. Acute kidney injury. Transaminitis. Prediabetes. History of alcoholism. Morbidly obese. Severe systolic HF EF 15%, large pleural effusions. Pericardial effusion. Assessment/Plan Continued all current supportive medical care. Amiodarone. Midodrine. Eliquis. Aspirin. Aldactone. GI prophylactics. Diuretics with Bumex. Tylenol for pain management . Additional plan as per the hospital course. Dietary Evaluation Review Comments: 1. Refer to CDE on DC for weight management 2. Continue current plan of care Expected Outcomes/Goals: To meet >75% estimated needs Fu 3-5 days Plan discussed with: Patient XIOMY JERONIMO MD Oct 31, 2024 16:34
[2024-11-01] VITALS (9 sets, daily range): BP systolic 99–114; BP diastolic 55–81; PULSE 70–84; RESP 18–20; TEMP 97.2–98.4; O2SAT 93–99
[2024-11-01 05:17] LABS: Hematocrit 42.3 % (41.0-53.0); Hemoglobin 14.3 g/dL (13.5-17.5); Mean Corpuscular Hemoglobin 30.6 pg (28.0-32.0); Mean Corpuscular Volume 90.8 fL (80.0-100.0); Nucleated Red Blood Cells % 0.1 %
[2024-11-01 05:25] LABS: Anion Gap 9 (5-15); Calcium 10.1 mg/dL (8.7-10.4)
[2024-11-01 05:30] LABS: BUN/Creatinine Ratio 27.7 (10.0-20.0)
[2024-11-01 05:31] LABS: Blood Urea Nitrogen 48 mg/dL (9-23); Carbon Dioxide 38 mmol/L (20-31); Chloride 79 mmol/L (98-107); Glucose 134 mg/dL (74-106); Magnesium 2.7 mg/dL (1.6-2.6); Sodium 126 mmol/L (136-145)
[2024-11-01 05:32] LABS: Potassium 2.3 mmol/L (3.5-5.1)
[2024-11-01] MEDS: POTASSIUM EFFERVESENT TAB 25 MEQ PO ONE (06:02)
[2024-11-01] MEDS: POTASSIUM CHL 20MEQ/100ML 100 ML IV SCH (09:41)
[2024-11-01] MEDS ORDERED: BUMETANIDE 1 MG TAB PO SCH (10:00)
[2024-11-01] MEDS: SPIRONOLACTONE 25 MG TAB PO SCH (10:16)
--- NOTE | 2024-11-01 13:14 | DVHPN2 ---
Progress Note - Dictate Date Seen: Nov 01, 2024 Medical Necessity Reason Pt with a Central, PICC or Fol: Yes The following are medically ne: Dean Catheter Reason for dean catheter: Bladder Retention/Obstruc, Strict I&O Subjective Patient was seen and evaluated in follow up. Patient complains of generalized pain. WBC 11, NA 126, K 2.3, CL 79, CO2 38, BUN 48, OPTION TRADER 1.73. Patient's potassium was replaced. Telemetry reviewed. vital signs Vital Sign Date Time Temp Pulse Resp B/P (MAP) Pulse Ox O2 Delivery O2 Flow Rate FiO2 11/01/24 10:05 109/78 11/01/24 08:42 97.2 74 18 95 97.2 10/31/24 20:00 Nasal Cannula* 3 32 Total Intake and Output 10/31/24 10/31/24 11/01/24 15:00 23:00 07:00 Intake Total 580 ml 850 ml 400 ml Output Total 1000 ml 750 ml Balance 580 ml -150 ml -350 ml medications Current Medications Medications Dose Ordered Sig/Nadia Route Start Time Stop Time Status Last Admin Dose Admin Aspirin 81 mg DAILY PO 10/06/24 10:00 11/01/24 09:39 81 MG Ondansetron HCl 4 mg Q4HP PRN IV 10/05/24 20:45 10/25/24 08:29 4 MG Amiodarone HCl 200 mg Q12HR PO 10/07/24 15:00 11/01/24 09:40 200 MG Vancomycin HCl 250 ml @ 200 mls/hr Q12H IV 10/08/24 14:00 UNV Midodrine 10 mg TID@0600,1200,1800 PO 10/13/24 12:00 11/01/24 06:02 10 MG Acetaminophen 650 mg Q6HP PRN PO 10/15/24 16:45 11/01/24 06:12 650 MG Enteral Nutritional Formula 240 ml BIDWM PO 10/23/24 18:00 11/01/24 08:14 240 ML Pantoprazole Sodium 40 mg DAILY@0600 PO 10/26/24 06:00 11/01/24 06:02 40 MG Apixaban 5 mg BID PO 10/29/24 22:00 11/01/24 09:38 5 MG Acetazolamide Sodium 500 mg Q12HR IV 10/31/24 22:00 11/01/24 10:05 500 MG Potassium Chloride 100 ml @ 50 mls/hr Q2H IV 11/01/24 09:00 11/01/24 16:59 11/01/24 12:06 50 MLS/HR Spironolactone 50 mg BIDD PO 11/01/24 10:00 11/01/24 10:16 50 MG Potassium Chloride 40 meq BID PO 11/01/24 22:00 objective GENERAL: Alert and oriented x 3. No acute distress. Morbidly obese. EYES: PERRL, EOMI. Anicteric. HENT: Moist mucous membranes. LUNGS: Diminished breath sounds. CARDIOVASCULAR: Irregular rate and rhythm. ABDOMEN: Soft, nontender and nondistended. EXTREMITIES: +3 pitting edema. NEUROLOGIC: No focal neurological deficits. SKIN: Warm, dry. laboratory and microbiology Laboratory Tests 11/01/24 04:33 Test 11/01/24 04:33 Range/Units Serum Glucose 134 H 74-106 mg/dL Problem List Atrial fibrillation with rapid ventricular response, newly diagnosed. Left pleural effusion. Sepsis. Hyperkalemia. Acute kidney injury. Transaminitis. Prediabetes. History of alcoholism. Morbidly obese. Severe systolic HF EF 15%, large pleural effusions. Pericardial effusion. Assessment/Plan Continued all current supportive medical care. Amiodarone. Midodrine. Eliquis. Aspirin. Aldactone. GI prophylactics. Diuretics with Bumex. Tylenol for pain management . Additional plan as per the hospital course. Dietary Evaluation Review Comments: 1. Refer to CDE on DC for weight management 2. Continue current plan of care Expected Outcomes/Goals: To meet >75% estimated needs Fu 3-5 days Plan discussed with: Patient XIOMY JERONIMO MD Nov 01, 2024 12:40
--- NOTE | 2024-11-01 14:09 | DVHPN2 ---
Progress Note Date Seen: Nov 01, 2024 Medical Necessity Reason Pt with a Central, PICC or Fol: Yes The following are medically ne: Dean Catheter Reason for dean catheter: Bladder Retention/Obstruc, Strict I&O Objective vital signs Vital Sign Date Time Temp Pulse Resp B/P (MAP) Pulse Ox O2 Delivery O2 Flow Rate FiO2 11/01/24 12:52 97.4 78 20 112/80 (91) 94 97.4 10/31/24 20:00 Nasal Cannula* 3 32 Total Intake and Output 10/31/24 10/31/24 11/01/24 15:00 23:00 07:00 Intake Total 580 ml 850 ml 400 ml Output Total 1000 ml 750 ml Balance 580 ml -150 ml -350 ml medications Current Medications Medications Dose Ordered Sig/Nadia Route Start Time Stop Time Status Last Admin Dose Admin Aspirin 81 mg DAILY PO 10/06/24 10:00 11/01/24 09:39 81 MG Ondansetron HCl 4 mg Q4HP PRN IV 10/05/24 20:45 10/25/24 08:29 4 MG Amiodarone HCl 200 mg Q12HR PO 10/07/24 15:00 11/01/24 09:40 200 MG Vancomycin HCl 250 ml @ 200 mls/hr Q12H IV 10/08/24 14:00 UNV Midodrine 10 mg TID@0600,1200,1800 PO 10/13/24 12:00 11/01/24 06:02 10 MG Acetaminophen 650 mg Q6HP PRN PO 10/15/24 16:45 11/01/24 06:12 650 MG Enteral Nutritional Formula 240 ml BIDWM PO 10/23/24 18:00 11/01/24 08:14 240 ML Pantoprazole Sodium 40 mg DAILY@0600 PO 10/26/24 06:00 11/01/24 06:02 40 MG Apixaban 5 mg BID PO 10/29/24 22:00 11/01/24 09:38 5 MG Acetazolamide Sodium 500 mg Q12HR IV 10/31/24 22:00 11/01/24 10:05 500 MG Potassium Chloride 100 ml @ 50 mls/hr Q2H IV 11/01/24 09:00 11/01/24 16:59 11/01/24 12:06 50 MLS/HR Spironolactone 50 mg BIDD PO 11/01/24 10:00 11/01/24 10:16 50 MG Potassium Chloride 40 meq BID PO 11/01/24 22:00 Examination: GENERAL:Abnormal, LUNGS:Abnormal, ABDOMEN:Abnormal, SKIN:Abnormal laboratory and microbiology Laboratory Tests 11/01/24 04:33 Test 11/01/24 04:33 Range/Units Serum Glucose 134 H 74-106 mg/dL Microbiology Date/Time Source Procedure Growth Status 10/23/24 11:25 Pleural Fluid Gram Stain - Final Complete 10/23/24 11:25 Pleural Fluid Aerobic Culture - Final Complete 10/06/24 12:31 Nose MRSA Screen - Final Complete 10/05/24 19:19 Blood Blood Culture - Final NO GROWTH AFTER 5 DAYS OF INCUBATION. Complete Problem List/Assessment/Plan Problem List/Assessment/Plan 64 year old male w/ no previous medical followup admitted to hospital with sob diagnosed w/ new onset CHF EF 15% and transferred to ICU for Afib RVR Acute kidney injury due to hypotension ckd cr 1.1 on admission severe systolic HF EF 15%, large pleural effusions s/p thoracentesis pericardial effusion afib RVR metabolic alkalosis diamox today, aldactone and IV potassium today. check ABG again tomorrow prior to giving diamox. resume bumex tomorrow and take off diamox tomorrow if alkalosis resolved rate control metoprolol, amio, cardiology eval, fluid restriction US kidney left kidney not visualized, R kidney 12cm rec repeat US cardiology discussed with family and patient at bedside if unable to achieve fluid removal with medical therapy may require pure ultrafiltration on dialysis. He is a high risk patient however because of history of dysrhythmias and severe systolic heart failure will come to / [facility] clinic when stable guarded prognosis total care time 50mins Plan discussed with: Patient My Orders My Orders Orders - HUONG SHEPPARD MD Procedure Category Date Status Time Abg W/ Co-Ox RT 10/31/24 Logged 14:10 Strict I & O RAJAT 10/31/24 In Process 16:14 Spironolactone PHA 11/01/24 In Process (Aldactone) 10:00 Dietary Evaluation Review Comments: 1. Refer to CDE on DC for weight management 2. Continue current plan of care Expected Outcomes/Goals: To meet >75% estimated needs Fu 3-5 days HUONG SHEPPARD MD Nov 01, 2024 14:09
[2024-11-01] MEDS: POTASSIUM CHL 20 Meq TABLET PO SCH (21:54)
[2024-11-02] VITALS (8 sets, daily range): BP systolic 101–113; BP diastolic 69–87; PULSE 52–76; RESP 16–20; TEMP 96.2–98.7; O2SAT 94–97
[2024-11-02 07:08] LABS: Hematocrit 41.4 % (41.0-53.0); Hemoglobin 14.2 g/dL (13.5-17.5); Mean Corpuscular Hemoglobin 31.0 pg (28.0-32.0); Mean Corpuscular Volume 90.4 fL (80.0-100.0); Nucleated Red Blood Cells % 0.2 %
[2024-11-02 07:19] LABS: Anion Gap 10 (5-15)
[2024-11-02 07:20] LABS: Calcium 10.2 mg/dL (8.7-10.4); Carbon Dioxide 35 mmol/L (20-31); Chloride 80 mmol/L (98-107); Potassium 2.9 mmol/L (3.5-5.1); Sodium 125 mmol/L (136-145)
[2024-11-02 07:25] LABS: BUN/Creatinine Ratio 25.7 (10.0-20.0)
[2024-11-02 07:29] LABS: Blood Urea Nitrogen 45 mg/dL (9-23); Glucose 130 mg/dL (74-106); Magnesium 2.6 mg/dL (1.6-2.6)
--- NOTE | 2024-11-02 12:42 | DVHPN2 ---
Assessment/Plan Assessment/Plan progress note 64 M with HFrEF 15%, afib on Eliquis, recurrent PLEF, morbid obesity with prolonged ICU and medsurge admission. seen today during rounds. alkalosis improve, rash improved after benadryl. c/w diuresis per renal. k replacement Physical exam morbidly obese aox4 JVD cannot be observed MMM PERLLA mild crackles s1 s2 irregular abdomen soft b/l LE edema Labs ekg imaging reviewed Assessment and plan Acute CHF exacerbation with systolic dysfunction Heart failure with reduced ejection fraction 15% Pericardial effusion not in tamponade Recurrent pleural effusion s/p throacentesis AFib with RVR , currently rate controlled Acute kidney injury 2/2 VMN now CKD 3b History of alcoholism Morbid obesity class I OHS/JEN with chronic CO2 retention Hypotension on midodrine Pericardial effusion Persistent hypokalemia dc diamox switch to bumex aim for -500 daily failed conversion to po, will reattempt on a later date amio for rate control potassium replacement scheduled, daily chem while on diuresis midodrine s/p dobu and dopa lifevest bedside c/w Eliquis and asa pt protonix diet mech soft dvt ppx on eliquis full code Plan discussed with: Patient Date of Service: Nov 02, 2024 Billing Provider: IDALMIS DIAZ MD Common Visit Codes: [id number] INP/OBS CARE(HIGH) IDALMIS DIAZ MD Nov 02, 2024 12:41
[2024-11-02] MEDS: POTASSIUM CHL 20MEQ/100ML 100 ML IV SCH (12:45)
--- NOTE | 2024-11-02 13:15 | DVHPN2 ---
Progress Note - Dictate Date Seen: Nov 02, 2024 Medical Necessity Reason Pt with a Central, PICC or Fol: Yes The following are medically ne: Dean Catheter Reason for dean catheter: Bladder Retention/Obstruc, Strict I&O Subjective Awake and alert, patient's at bedside vital signs Vital Sign Date Time Temp Pulse Resp B/P (MAP) Pulse Ox O2 Delivery O2 Flow Rate FiO2 11/02/24 12:11 115/76 11/02/24 09:00 96.2 52 16 94 96.2 11/01/24 20:00 Nasal Cannula* 3 32 Total Intake and Output 11/01/24 11/01/24 11/02/24 15:00 23:00 07:00 Intake Total 200 ml 450 ml 200 ml Output Total 800 ml 850 ml Balance 200 ml -350 ml -650 ml medications Current Medications Medications Dose Ordered Sig/Nadia Route Start Time Stop Time Status Last Admin Dose Admin Aspirin 81 mg DAILY PO 10/06/24 10:00 11/02/24 10:46 81 MG Ondansetron HCl 4 mg Q4HP PRN IV 10/05/24 20:45 10/25/24 08:29 4 MG Amiodarone HCl 200 mg Q12HR PO 10/07/24 15:00 11/02/24 10:47 200 MG Vancomycin HCl 250 ml @ 200 mls/hr Q12H IV 10/08/24 14:00 UNV Midodrine 10 mg TID@0600,1200,1800 PO 10/13/24 12:00 11/02/24 12:21 10 MG Acetaminophen 650 mg Q6HP PRN PO 10/15/24 16:45 11/01/24 21:55 650 MG Enteral Nutritional Formula 240 ml BIDWM PO 10/23/24 18:00 11/02/24 12:18 240 ML Pantoprazole Sodium 40 mg DAILY@0600 PO 10/26/24 06:00 11/02/24 05:20 40 MG Apixaban 5 mg BID PO 10/29/24 22:00 11/02/24 10:49 5 MG Acetazolamide Sodium 500 mg Q12HR IV 10/31/24 22:00 11/02/24 12:11 500 MG Spironolactone 50 mg BIDD PO 11/01/24 10:00 11/02/24 05:20 50 MG Potassium Chloride 40 meq BID PO 11/01/24 22:00 11/02/24 10:00 40 MEQ Potassium Chloride 100 ml @ 50 mls/hr Q2H IV 11/02/24 12:45 11/02/24 16:44 UNV objective Gen: nad heent: nc/at, mmm lungs: Diminished breath sounds cvs: No rub abd: soft, bowel sounds audible ext: + edema laboratory and microbiology Laboratory Tests 11/02/24 06:22 Test 11/02/24 06:22 Range/Units Serum Glucose 130 H 74-106 mg/dL Assessment/Plan Acute kidney injury due to hypotension ckd cr 1.1 on admission severe systolic HF EF 15%, large pleural effusions s/p thoracentesis pericardial effusion afib RVR metabolic alkalosis - we will continue with diuretics - given mild hyponatremia possibly non osmotic ADH release in the setting of low-flow state, chronic heart failure, consideration For trial of V2 receptor antagonist, tolvaptan or conivaptan for true Aquaresis if available - we will consider continuous infusion of loop diuretic if current measures are not efficacious. Dietary Evaluation Review Comments: 1. Refer to CDE on DC for weight management 2. Continue current plan of care Expected Outcomes/Goals: To meet >75% estimated needs Fu 3-5 days Plan discussed with: Patient, Spouse LEELA GERONIMO MD Nov 02, 2024 13:15
--- NOTE | 2024-11-02 20:21 | DVHPN2 ---
Progress Note - Dictate Date Seen: Nov 02, 2024 Medical Necessity Reason Pt with a Central, PICC or Fol: Yes The following are medically ne: Dean Catheter Reason for dean catheter: Bladder Retention/Obstruc, Strict I&O Subjective Patient was seen and evaluated in follow up. Patient complains of generalized pain. NA 125, K 2.9, CL 80, CO2 35, BUN 45, MANAGER BAR 1.75. Telemetry reviewed. vital signs Vital Sign Date Time Temp Pulse Resp B/P (MAP) Pulse Ox O2 Delivery O2 Flow Rate FiO2 11/02/24 12:11 115/76 11/02/24 09:00 96.2 52 16 94 96.2 11/01/24 20:00 Nasal Cannula* 3 32 Total Intake and Output 11/01/24 11/01/24 11/02/24 15:00 23:00 07:00 Intake Total 200 ml 450 ml 200 ml Output Total 800 ml 850 ml Balance 200 ml -350 ml -650 ml medications Current Medications Medications Dose Ordered Sig/Nadia Route Start Time Stop Time Status Last Admin Dose Admin Aspirin 81 mg DAILY PO 10/06/24 10:00 11/02/24 10:46 81 MG Ondansetron HCl 4 mg Q4HP PRN IV 10/05/24 20:45 10/25/24 08:29 4 MG Amiodarone HCl 200 mg Q12HR PO 10/07/24 15:00 11/02/24 10:47 200 MG Vancomycin HCl 250 ml @ 200 mls/hr Q12H IV 10/08/24 14:00 UNV Midodrine 10 mg TID@0600,1200,1800 PO 10/13/24 12:00 11/02/24 05:20 10 MG Acetaminophen 650 mg Q6HP PRN PO 10/15/24 16:45 11/01/24 21:55 650 MG Enteral Nutritional Formula 240 ml BIDWM PO 10/23/24 18:00 11/01/24 18:00 240 ML Pantoprazole Sodium 40 mg DAILY@0600 PO 10/26/24 06:00 11/02/24 05:20 40 MG Apixaban 5 mg BID PO 10/29/24 22:00 11/02/24 10:49 5 MG Acetazolamide Sodium 500 mg Q12HR IV 10/31/24 22:00 11/02/24 12:11 500 MG Spironolactone 50 mg BIDD PO 11/01/24 10:00 11/02/24 05:20 50 MG Potassium Chloride 40 meq BID PO 11/01/24 22:00 11/02/24 10:00 40 MEQ objective GENERAL: Alert and oriented x 3. No acute distress. Morbidly obese. EYES: PERRL, EOMI. Anicteric. HENT: Moist mucous membranes. LUNGS: Diminished breath sounds. CARDIOVASCULAR: Irregular rate and rhythm. ABDOMEN: Soft, nontender and nondistended. EXTREMITIES: +3 pitting edema. NEUROLOGIC: No focal neurological deficits. SKIN: Warm, dry. laboratory and microbiology Laboratory Tests 11/02/24 06:22 Test 11/02/24 06:22 Range/Units Serum Glucose 130 H 74-106 mg/dL Problem List Atrial fibrillation with rapid ventricular response, newly diagnosed. Left pleural effusion. Sepsis. Hyperkalemia. Acute kidney injury. Transaminitis. Prediabetes. History of alcoholism. Morbidly obese. Severe systolic HF EF 15%, large pleural effusions. Pericardial effusion. Assessment/Plan Continued all current supportive medical care. Amiodarone. Midodrine. Eliquis. Aspirin. Aldactone. GI prophylactics. Tylenol for pain management . Additional plan as per the hospital course. Dietary Evaluation Review Comments: 1. Refer to CDE on DC for weight management 2. Continue current plan of care Expected Outcomes/Goals: To meet >75% estimated needs Fu 3-5 days Plan discussed with: Patient XIOMY JERONIMO MD Nov 02, 2024 12:16
[2024-11-03] VITALS (8 sets, daily range): BP systolic 104–120; BP diastolic 75–89; PULSE 65–78; RESP 16–20; TEMP 96.3–98; O2SAT 94–98
[2024-11-03 07:18] LABS: Hematocrit 43.6 % (41.0-53.0); Hemoglobin 14.7 g/dL (13.5-17.5); Mean Corpuscular Hemoglobin 30.7 pg (28.0-32.0); Mean Corpuscular Volume 90.8 fL (80.0-100.0); Nucleated Red Blood Cells % 0.1 %
[2024-11-03 07:33] LABS: Anion Gap 11 (5-15); Calcium 10.3 mg/dL (8.7-10.4)
[2024-11-03 07:36] LABS: Carbon Dioxide 33 mmol/L (20-31); Chloride 82 mmol/L (98-107); Potassium 2.8 mmol/L (3.5-5.1); Sodium 126 mmol/L (136-145)
[2024-11-03 07:38] LABS: BUN/Creatinine Ratio 24.7 (10.0-20.0)
[2024-11-03 07:39] LABS: Blood Urea Nitrogen 43 mg/dL (9-23); Glucose 119 mg/dL (74-106)
--- NOTE | 2024-11-03 10:50 | DVHPN2 ---
Progress Note - Dictate Date Seen: Nov 03, 2024 Medical Necessity Reason Pt with a Central, PICC or Fol: Yes The following are medically ne: Dean Catheter Reason for dean catheter: Bladder Retention/Obstruc, Strict I&O Subjective Denies complaint this morning, patient's at bedside again vital signs Vital Sign Date Time Temp Pulse Resp B/P (MAP) Pulse Ox O2 Delivery O2 Flow Rate FiO2 11/03/24 09:00 96.3 69 16 104/83 (90) 97 96.3 11/02/24 20:00 Nasal Cannula* 3 32 Total Intake and Output 11/02/24 11/02/24 11/03/24 15:00 23:00 07:00 Intake Total 100 ml 125 ml 800 ml Output Total 500 ml 1100 ml Balance 100 ml -375 ml -300 ml medications Current Medications Medications Dose Ordered Sig/Nadia Route Start Time Stop Time Status Last Admin Dose Admin Aspirin 81 mg DAILY PO 10/06/24 10:00 11/03/24 09:20 81 MG Ondansetron HCl 4 mg Q4HP PRN IV 10/05/24 20:45 10/25/24 08:29 4 MG Amiodarone HCl 200 mg Q12HR PO 10/07/24 15:00 11/03/24 09:19 200 MG Vancomycin HCl 250 ml @ 200 mls/hr Q12H IV 10/08/24 14:00 UNV Midodrine 10 mg TID@0600,1200,1800 PO 10/13/24 12:00 11/03/24 05:58 10 MG Acetaminophen 650 mg Q6HP PRN PO 10/15/24 16:45 11/01/24 21:55 650 MG Enteral Nutritional Formula 240 ml BIDWM PO 10/23/24 18:00 11/03/24 09:00 240 ML Pantoprazole Sodium 40 mg DAILY@0600 PO 10/26/24 06:00 11/03/24 05:57 40 MG Apixaban 5 mg BID PO 10/29/24 22:00 11/03/24 09:16 5 MG Acetazolamide Sodium 500 mg Q12HR IV 10/31/24 22:00 11/02/24 21:46 500 MG Spironolactone 50 mg BIDD PO 11/01/24 10:00 11/03/24 05:58 50 MG Potassium Chloride 40 meq BID PO 11/01/24 22:00 11/03/24 09:18 40 MEQ Bumetanide 12.5 mg/Miscellaneous 50 ml @ 2 mls/hr Q24H IV 11/03/24 09:00 objective Gen: nad heent: nc/at, mmm lungs: Diminished breath sounds cvs: No rub abd: soft, bowel sounds audible ext: + edema laboratory and microbiology Laboratory Tests 11/03/24 04:58 Test 11/03/24 04:58 Range/Units Serum Glucose 119 H 74-106 mg/dL Assessment/Plan Acute kidney injury due to hypotension ckd cr 1.1 on admission severe systolic HF EF 15%, large pleural effusions s/p thoracentesis pericardial effusion afib RVR metabolic alkalosis - trial of Bumex drip, we will augment with oral dose of metolazone - b.i.d. chemistry panels during time course of active diuresis - discussed plan of care from Nephrology perspective with patient and patient's . Dietary Evaluation Review Comments: 1. Refer to CDE on DC for weight management 2. Continue current plan of care Expected Outcomes/Goals: To meet >75% estimated needs Fu 3-5 days Plan discussed with: Patient, Spouse LEELA GERONIMO MD Nov 03, 2024 10:50
[2024-11-03] MEDS: BUMETANIDE 2.5mg/10ml (0.25 mg/ml) INJ IV ONE (13:02)
--- NOTE | 2024-11-03 16:24 | DVHPN2 ---
Assessment/Plan Assessment/Plan progress note 64 M with HFrEF 15%, afib on Eliquis, recurrent PLEF, morbid obesity with prolonged ICU and medsurge admission. seen today during rounds. alkalosis improved further, switched to bumex. bipap at night if pt allows. benadryl PRN Physical exam morbidly obese aox4 JVD cannot be observed MMM PERLLA mild crackles s1 s2 irregular abdomen soft b/l LE edema Labs ekg imaging reviewed Assessment and plan Acute CHF exacerbation with systolic dysfunction Heart failure with reduced ejection fraction 15% Pericardial effusion not in tamponade Recurrent pleural effusion s/p throacentesis AFib with RVR , currently rate controlled Acute kidney injury 2/2 VMN now CKD 3b History of alcoholism Morbid obesity class I OHS/JEN with chronic CO2 retention Hypotension on midodrine Pericardial effusion Persistent hypokalemia dc diamox switch to bumex aim for -500 daily failed conversion to po, will reattempt on a later date amio for rate control potassium replacement scheduled, daily chem while on diuresis midodrine s/p dobu and dopa lifevest bedside c/w Eliquis and asa pt protonix diet mech soft dvt ppx on eliquis full code Plan discussed with: Patient My Orders Orders - IDALMIS DIAZ MD Procedure Category Date Status Time Abg W/ Co-Ox RT 11/03/24 Logged 09:37 Potassium Chl PHA 11/03/24 In Process 20meq/100ml 13:15 Bipap/Cpap For Sleep RT 11/03/24 Logged Apnea 13:13 Basic Metabolic Panel LAB 11/04/24 Verified 04:00 Date of Service: Nov 03, 2024 Billing Provider: IDALMIS DIAZ MD Common Visit Codes: [id number] INP/OBS CARE(HIGH) IDALMIS DIAZ MD Nov 03, 2024 16:24
[2024-11-03] MEDS: POTASSIUM CHL 20MEQ/100ML 100 ML IV SCH (16:34)
[2024-11-03] MEDS: BUMETANIDE INJECTION 12.5 MG in GIVE UN-DILUTED 0 ML IV SCH (17:16)
[2024-11-03 17:35] LABS: Base Excess 6.1 mmol/L (-2.0-3.0)
--- NOTE | 2024-11-03 19:40 | DVHPN2 ---
Progress Note - Dictate Date Seen: Nov 03, 2024 Medical Necessity Reason Pt with a Central, PICC or Fol: Yes The following are medically ne: Dean Catheter Reason for dean catheter: Bladder Retention/Obstruc, Strict I&O Subjective Patient was seen and evaluated in follow up. Patient is on 3 LPM NC. Patient complains of generalized pain. 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 Telemetry reviewed. vital signs Vital Sign Date Time Temp Pulse Resp B/P (MAP) Pulse Ox O2 Delivery O2 Flow Rate FiO2 11/03/24 09:00 96.3 69 16 104/83 (90) 97 96.3 11/02/24 20:00 Nasal Cannula* 3 32 Total Intake and Output 11/02/24 11/02/24 11/03/24 14:59 22:59 06:59 Intake Total 100 ml 125 ml 800 ml Output Total 500 ml 1100 ml Balance 100 ml -375 ml -300 ml medications Current Medications Medications Dose Ordered Sig/Nadia Route Start Time Stop Time Status Last Admin Dose Admin Aspirin 81 mg DAILY PO 10/06/24 10:00 11/03/24 09:20 81 MG Ondansetron HCl 4 mg Q4HP PRN IV 10/05/24 20:45 10/25/24 08:29 4 MG Amiodarone HCl 200 mg Q12HR PO 10/07/24 15:00 11/03/24 09:19 200 MG Vancomycin HCl 250 ml @ 200 mls/hr Q12H IV 10/08/24 14:00 UNV Midodrine 10 mg TID@0600,1200,1800 PO 10/13/24 12:00 11/03/24 05:58 10 MG Acetaminophen 650 mg Q6HP PRN PO 10/15/24 16:45 11/01/24 21:55 650 MG Enteral Nutritional Formula 240 ml BIDWM PO 10/23/24 18:00 11/03/24 09:00 240 ML Pantoprazole Sodium 40 mg DAILY@0600 PO 10/26/24 06:00 11/03/24 05:57 40 MG Apixaban 5 mg BID PO 10/29/24 22:00 11/03/24 09:16 5 MG Spironolactone 50 mg BIDD PO 11/01/24 10:00 11/03/24 05:58 50 MG Bumetanide 12.5 mg/Miscellaneous 50 ml @ 2 mls/hr Q24H IV 11/03/24 09:00 Potassium Chloride 40 meq BID PO 11/03/24 22:00 objective GENERAL: Alert and oriented x 3. No acute distress. Morbidly obese. EYES: PERRL, EOMI. Anicteric. HENT: Moist mucous membranes. LUNGS: Diminished breath sounds. CARDIOVASCULAR: Irregular rate and rhythm. ABDOMEN: Soft, nontender and nondistended. EXTREMITIES: +3 pitting edema. NEUROLOGIC: No focal neurological deficits. SKIN: Warm, dry. laboratory and microbiology Laboratory Tests 11/03/24 04:58 Test 11/03/24 04:58 Range/Units Serum Glucose 119 H 74-106 mg/dL Problem List Atrial fibrillation with rapid ventricular response, newly diagnosed. Left pleural effusion. Sepsis. Hyperkalemia. Acute kidney injury. Transaminitis. Prediabetes. History of alcoholism. Morbidly obese. Severe systolic HF EF 15%, large pleural effusions. Pericardial effusion. Assessment/Plan Continued all current supportive medical care. Amiodarone. Midodrine. Eliquis. Aspirin. Aldactone. GI prophylactics. Diuretics with Bumex. Tylenol for pain management . Additional plan as per the hospital course. Dietary Evaluation Review Comments: 1. Refer to CDE on DC for weight management 2. Continue current plan of care Expected Outcomes/Goals: To meet >75% estimated needs Fu 3-5 days Plan discussed with: Patient XIOMY JERONIMO MD Nov 03, 2024 12:42
--- NOTE | 2024-11-03 19:54 | DVH ---
CHEST RADIOGRAPH Indication: shortness of breath Technique: Single frontal view of the chest was obtained COMPARISON: XY CHEST XRAY 1 VIEW on DOS: 10/29/24, XY CHEST XRAY 1 VIEW on DOS: 10/27/24, XY CHEST PORT ABLE on DOS: 10/23/24, XY CHEST PORTABLE on DOS: 10/22/24, XY CHEST XRAY 1 VIEW on DOS: 10/07/24 FINDINGS: Lines and Tubes: None Lungs: Multifocal airspace disease Pleura: Large left and moderate right pleural effusion No pneumothorax. Cardiomediastinal contours: Cardiomegaly Bones: Unremarkable IMPRESSION: Pulmonary edema/ CHF, increased
[2024-11-03] MEDS: POTASSIUM CHL 20 Meq TABLET PO SCH (22:07)
[2024-11-03] MEDS: POTASSIUM CHL 20MEQ/100ML 100 ML IV ONE (22:08)
[2024-11-04] VITALS (8 sets, daily range): BP systolic 108–121; BP diastolic 79–86; PULSE 7–82; RESP 16–18; TEMP 96.9–98.2; O2SAT 95–98
[2024-11-04 07:31] LABS: Hematocrit 42.1 % (41.0-53.0); Hemoglobin 14.3 g/dL (13.5-17.5); Mean Corpuscular Hemoglobin 30.9 pg (28.0-32.0); Mean Corpuscular Volume 91.0 fL (80.0-100.0); Nucleated Red Blood Cells % 0.1 %
[2024-11-04 07:35] LABS: Anion Gap 10 (5-15)
[2024-11-04 07:37] LABS: Calcium 10.2 mg/dL (8.7-10.4)
[2024-11-04 07:41] LABS: BUN/Creatinine Ratio 24.1 (10.0-20.0)
[2024-11-04 07:42] LABS: Blood Urea Nitrogen 45 mg/dL (9-23); Carbon Dioxide 34 mmol/L (20-31); Chloride 84 mmol/L (98-107); Glucose 132 mg/dL (74-106); Potassium 3.4 mmol/L (3.5-5.1); Sodium 128 mmol/L (136-145)
--- NOTE | 2024-11-04 11:01 | DVHPN2 ---
Progress Note - Dictate Date Seen: Nov 04, 2024 Medical Necessity Reason Pt with a Central, PICC or Fol: Yes The following are medically ne: Dean Catheter Reason for dean catheter: Bladder Retention/Obstruc, Strict I&O Subjective Resting comfortably, approximately net 3 L negative fluid balance over previous 24 hours on Bumex drip vital signs Vital Sign Date Time Temp Pulse Resp B/P (MAP) Pulse Ox O2 Delivery O2 Flow Rate FiO2 11/04/24 09:27 117/85 11/04/24 09:00 97.1 74 17 96 97.1 11/03/24 20:00 Nasal Cannula* 3 32 Total Intake and Output 11/03/24 11/03/24 11/04/24 15:00 23:00 07:00 Intake Total 397 ml 1000 ml Output Total 2100 ml 2500 ml Balance -1703 ml -1500 ml medications Current Medications Medications Dose Ordered Sig/Nadia Route Start Time Stop Time Status Last Admin Dose Admin Aspirin 81 mg DAILY PO 10/06/24 10:00 11/04/24 09:30 81 MG Ondansetron HCl 4 mg Q4HP PRN IV 10/05/24 20:45 10/25/24 08:29 4 MG Amiodarone HCl 200 mg Q12HR PO 10/07/24 15:00 11/04/24 09:30 200 MG Vancomycin HCl 250 ml @ 200 mls/hr Q12H IV 10/08/24 14:00 UNV Midodrine 10 mg TID@0600,1200,1800 PO 10/13/24 12:00 11/04/24 05:03 10 MG Acetaminophen 650 mg Q6HP PRN PO 10/15/24 16:45 11/04/24 04:47 650 MG Enteral Nutritional Formula 240 ml BIDWM PO 10/23/24 18:00 11/04/24 08:00 240 ML Pantoprazole Sodium 40 mg DAILY@0600 PO 10/26/24 06:00 11/04/24 05:04 40 MG Apixaban 5 mg BID PO 10/29/24 22:00 11/04/24 09:30 5 MG Spironolactone 50 mg BIDD PO 11/01/24 10:00 11/04/24 05:04 50 MG Bumetanide 12.5 mg/Miscellaneous 50 ml @ 2 mls/hr Q24H IV 11/03/24 09:00 11/04/24 09:27 2 MLS/HR Potassium Chloride 40 meq BID PO 11/03/24 22:00 11/04/24 09:30 40 MEQ Diphenhydramine HCl 50 mg QHSP PRN IV 11/03/24 16:30 objective Gen: nad heent: nc/at, mmm lungs: Diminished breath sounds cvs: No rub abd: soft, bowel sounds audible ext: + edema laboratory and microbiology Laboratory Tests 11/04/24 05:57 Test 11/04/24 05:57 Range/Units Serum Glucose 132 H 74-106 mg/dL Assessment/Plan Acute kidney injury due to hypotension ckd cr 1.1 on admission severe systolic HF EF 15%, large pleural effusions s/p thoracentesis pericardial effusion afib RVR metabolic alkalosis - patient with efficacious response to Bumex drip - we will continue with current management, GFR essentially stable/ unchanged - electrolyte repletion as needed. Dietary Evaluation Review Comments: 1. Refer to CDE on DC for weight management 2. Continue current plan of care Expected Outcomes/Goals: To meet >75% estimated needs Fu 3-5 days Plan discussed with: Spouse LEELA GERONIMO MD Nov 04, 2024 11:01
--- NOTE | 2024-11-04 14:24 | DVHPN2 ---
Assessment/Plan Assessment/Plan progress note 64 M with HFrEF 15%, afib on Eliquis, recurrent PLEF, morbid obesity with prolonged ICU and medsurge admission. seen today during rounds. bipap at night if pt allows. diuresing well with bumex drip. c/w pt. Physical exam morbidly obese aox4 JVD cannot be observed MMM PERLLA mild crackles s1 s2 irregular abdomen soft b/l LE edema Labs ekg imaging reviewed Assessment and plan Acute CHF exacerbation with systolic dysfunction Heart failure with reduced ejection fraction 15% Pericardial effusion not in tamponade Recurrent pleural effusion s/p throacentesis AFib with RVR , currently rate controlled Acute kidney injury 2/2 VMN now CKD 3b History of alcoholism Morbid obesity class I OHS/JEN with chronic CO2 retention Hypotension on midodrine Pericardial effusion Persistent hypokalemia dc diamox switch to bumex aim for -500 daily failed conversion to po, will reattempt on a later date amio for rate control potassium replacement scheduled, daily chem while on diuresis midodrine s/p dobu and dopa lifevest bedside c/w Eliquis and asa pt protonix diet mech soft dvt ppx on eliquis full code Plan discussed with: Patient, Spouse My Orders Orders - IDALMIS DIAZ MD Procedure Category Date Status Time Diphenhdramine PHA 11/03/24 In Process Injection (Benadryl 16:30 Date of Service: Nov 04, 2024 Billing Provider: IDALMIS DIAZ MD Common Visit Codes: [id number] INP/OBS CARE(HIGH) IDALMIS DIAZ MD Nov 04, 2024 14:24
--- NOTE | 2024-11-04 22:09 | DVHPN2 ---
Progress Note - Dictate Date Seen: Nov 04, 2024 Medical Necessity Reason Pt with a Central, PICC or Fol: Yes The following are medically ne: Dean Catheter Reason for dean catheter: Bladder Retention/Obstruc, Strict I&O Subjective Patient was seen and evaluated in follow up. Patient denies any complaints. Patient with 3 L negative fluid balance over previous 24 hours on Bumex drip. 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 Chest x-ray shows pulmonary edema/ CHF, increased. Telemetry reviewed. vital signs Vital Sign Date Time Temp Pulse Resp B/P (MAP) Pulse Ox O2 Delivery O2 Flow Rate FiO2 11/04/24 09:27 117/85 11/04/24 09:00 97.1 74 17 96 97.1 11/04/24 08:05 Nasal Cannula* 3 32 Total Intake and Output 11/03/24 11/03/24 11/04/24 15:00 23:00 07:00 Intake Total 397 ml 1000 ml Output Total 2100 ml 2500 ml Balance -1703 ml -1500 ml medications Current Medications Medications Dose Ordered Sig/Nadia Route Start Time Stop Time Status Last Admin Dose Admin Aspirin 81 mg DAILY PO 10/06/24 10:00 11/04/24 09:30 81 MG Ondansetron HCl 4 mg Q4HP PRN IV 10/05/24 20:45 10/25/24 08:29 4 MG Amiodarone HCl 200 mg Q12HR PO 10/07/24 15:00 11/04/24 09:30 200 MG Vancomycin HCl 250 ml @ 200 mls/hr Q12H IV 10/08/24 14:00 UNV Midodrine 10 mg TID@0600,1200,1800 PO 10/13/24 12:00 11/04/24 12:34 10 MG Acetaminophen 650 mg Q6HP PRN PO 10/15/24 16:45 11/04/24 04:47 650 MG Enteral Nutritional Formula 240 ml BIDWM PO 10/23/24 18:00 11/04/24 08:00 240 ML Pantoprazole Sodium 40 mg DAILY@0600 PO 10/26/24 06:00 11/04/24 05:04 40 MG Apixaban 5 mg BID PO 10/29/24 22:00 11/04/24 09:30 5 MG Spironolactone 50 mg BIDD PO 11/01/24 10:00 11/04/24 05:04 50 MG Bumetanide 12.5 mg/Miscellaneous 50 ml @ 2 mls/hr Q24H IV 11/03/24 09:00 11/04/24 09:27 2 MLS/HR Potassium Chloride 40 meq BID PO 11/03/24 22:00 11/04/24 09:30 40 MEQ Diphenhydramine HCl 50 mg QHSP PRN IV 11/03/24 16:30 objective GENERAL: Alert and oriented x 3. No acute distress. Morbidly obese. EYES: PERRL, EOMI. Anicteric. HENT: Moist mucous membranes. LUNGS: Diminished breath sounds. CARDIOVASCULAR: Irregular rate and rhythm. ABDOMEN: Soft, nontender and nondistended. EXTREMITIES: +3 pitting edema. NEUROLOGIC: No focal neurological deficits. SKIN: Warm, dry. laboratory and microbiology Laboratory Tests 11/04/24 05:57 Test 11/04/24 05:57 Range/Units Serum Glucose 132 H 74-106 mg/dL Problem List Atrial fibrillation with rapid ventricular response, newly diagnosed. Left pleural effusion. Sepsis. Hyperkalemia. Acute kidney injury. Transaminitis. Prediabetes. History of alcoholism. Morbidly obese. Severe systolic HF EF 15%, large pleural effusions. Pericardial effusion. Assessment/Plan Continued all current supportive medical care. Amiodarone. Midodrine. Eliquis. Aspirin. Aldactone. GI prophylactics. Diuretics with Bumex. Tylenol for pain management . Additional plan as per the hospital course. Dietary Evaluation Review Comments: 1. Refer to CDE on DC for weight management 2. Continue current plan of care Expected Outcomes/Goals: To meet >75% estimated needs Fu 3-5 days Plan discussed with: Patient XIOMY JERONIMO MD Nov 04, 2024 13:40
[2024-11-05] VITALS (8 sets, daily range): BP systolic 91–167; BP diastolic 63–79; PULSE 68–85; RESP 17–20; TEMP 97.3–97.8; O2SAT 93–99
--- NOTE | 2024-11-05 07:48 | ECG ---
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
--- NOTE | 2024-11-05 15:23 | DVHPN2 ---
Progress Note Date Seen: Nov 05, 2024 Medical Necessity Reason Pt with a Central, PICC or Fol: Yes The following are medically ne: Dean Catheter Reason for dean catheter: Bladder Retention/Obstruc, Strict I&O Subjective Patient reports: No new complaints Review of Systems: MSK:Abnormal (Positive swelling) Objective vital signs Vital Sign Date Time Temp Pulse Resp B/P (MAP) Pulse Ox O2 Delivery O2 Flow Rate FiO2 11/05/24 13:00 97.6 85 17 95/64 (74) 99 97.6 11/05/24 08:05 Nasal Cannula* 3 32 Total Intake and Output 11/04/24 11/04/24 11/05/24 15:00 23:00 07:00 Intake Total 495 ml 324 ml Output Total 1500 ml 3800 ml Balance -1005 ml -3476 ml medications Current Medications Medications Dose Ordered Sig/Nadia Route Start Time Stop Time Status Last Admin Dose Admin Amiodarone HCl 200 mg Q12HR PO 10/07/24 15:00 11/05/24 08:57 200 MG Vancomycin HCl 250 ml @ 200 mls/hr Q12H IV 10/08/24 14:00 UNV Midodrine 10 mg TID@0600,1200,1800 PO 10/13/24 12:00 11/05/24 12:15 10 MG Acetaminophen 650 mg Q6HP PRN PO 10/15/24 16:45 11/04/24 04:47 650 MG Enteral Nutritional Formula 240 ml BIDWM PO 10/23/24 18:00 11/05/24 08:00 240 ML Pantoprazole Sodium 40 mg DAILY@0600 PO 10/26/24 06:00 11/05/24 05:02 40 MG Apixaban 5 mg BID PO 10/29/24 22:00 11/05/24 08:55 5 MG Spironolactone 50 mg BIDD PO 11/01/24 10:00 11/05/24 05:02 50 MG Bumetanide 12.5 mg/Miscellaneous 50 ml @ 2 mls/hr Q24H IV 11/03/24 09:00 11/05/24 08:53 2 MLS/HR Potassium Chloride 40 meq BID PO 11/03/24 22:00 11/05/24 08:57 40 MEQ Diphenhydramine HCl 50 mg QHSP PRN IV 11/03/24 16:30 Examination: GENERAL:Abnormal, LUNGS:Abnormal, MSK:Abnormal (Positive swelling), NEURO:Normal laboratory and microbiology Laboratory Tests 11/04/24 05:57 Test 11/04/24 05:57 Range/Units Serum Glucose 132 H 74-106 mg/dL Microbiology Date/Time Source Procedure Growth Status 10/23/24 11:25 Pleural Fluid Gram Stain - Final Complete 10/23/24 11:25 Pleural Fluid Aerobic Culture - Final Complete 10/06/24 12:31 Nose MRSA Screen - Final Complete 10/05/24 19:19 Blood Blood Culture - Final NO GROWTH AFTER 5 DAYS OF INCUBATION. Complete Problem List/Assessment/Plan Problem List/Assessment/Plan Acute kidney injury due to hypotension/cardiorenal etiology ckd cr 1.1 on admission severe systolic HF EF 15%, large pleural effusions s/p thoracentesis pericardial effusion afib RVR Hyponatremia Hypokalemia Metabolic alkalosis secondary to diuretics Recommendations Bumex drip IV continue KCL replace as needed Discussed with daughter bedside Plan discussed with: Patient, Daughter Dietary Evaluation Review Comments: 1. Refer to CDE on DC for weight management 2. Continue current plan of care Expected Outcomes/Goals: To meet >75% estimated needs Fu 3-5 days DINA FORBES MD Nov 05, 2024 15:23
--- NOTE | 2024-11-05 16:27 | DVHPN2 ---
Assessment/Plan Assessment/Plan progress note 64 M with HFrEF 15%, afib on Eliquis, recurrent PLEF, morbid obesity with prolonged ICU and medsurge admission. seen today during rounds. bipap at night if pt allows. diuresing well with bumex drip. c/w pt. will discuss with renal re: PO diuretics again Physical exam morbidly obese aox4 JVD cannot be observed MMM PERLLA mild crackles s1 s2 irregular abdomen soft b/l LE edema Labs ekg imaging reviewed Assessment and plan Acute CHF exacerbation with systolic dysfunction Heart failure with reduced ejection fraction 15% Pericardial effusion not in tamponade Recurrent pleural effusion s/p throacentesis AFib with RVR , currently rate controlled Acute kidney injury 2/2 VMN now CKD 3b History of alcoholism Morbid obesity class I OHS/JEN with chronic CO2 retention Hypotension on midodrine Pericardial effusion Persistent hypokalemia dc diamox switch to bumex aim for -500 daily failed conversion to po, will reattempt on a later date amio for rate control potassium replacement scheduled, daily chem while on diuresis midodrine s/p dobu and dopa lifevest bedside c/w Eliquis and asa pt protonix diet mech soft dvt ppx on eliquis full code Plan discussed with: Patient Date of Service: Nov 05, 2024 Billing Provider: IDALMIS DIAZ MD Common Visit Codes: [id number] INP/OBS CARE(HIGH) IDALMIS DIAZ MD Nov 05, 2024 16:27
--- NOTE | 2024-11-05 21:49 | DVHPN2 ---
Progress Note - Dictate Date Seen: Nov 05, 2024 Medical Necessity Reason Pt with a Central, PICC or Fol: Yes The following are medically ne: Dean Catheter Reason for dean catheter: Bladder Retention/Obstruc, Strict I&O Subjective Patient was seen and evaluated in follow up. Patient is on 3 LPM NC. Patient diuresing well with Bumex drip. Telemetry reviewed. vital signs Vital Sign Date Time Temp Pulse Resp B/P (MAP) Pulse Ox O2 Delivery O2 Flow Rate FiO2 11/05/24 21:00 97.6 81 18 98/63 (75) 93 97.6 11/05/24 20:00 Nasal Cannula* 3 32 Total Intake and Output 11/04/24 11/04/24 11/05/24 15:00 23:00 07:00 Intake Total 495 ml 324 ml Output Total 1500 ml 3800 ml Balance -1005 ml -3476 ml medications Current Medications Medications Dose Ordered Sig/Nadia Route Start Time Stop Time Status Last Admin Dose Admin Amiodarone HCl 200 mg Q12HR PO 10/07/24 15:00 11/05/24 21:25 200 MG Vancomycin HCl 250 ml @ 200 mls/hr Q12H IV 10/08/24 14:00 UNV Midodrine 10 mg TID@0600,1200,1800 PO 10/13/24 12:00 11/05/24 18:16 10 MG Acetaminophen 650 mg Q6HP PRN PO 10/15/24 16:45 11/04/24 04:47 650 MG Enteral Nutritional Formula 240 ml BIDWM PO 10/23/24 18:00 11/05/24 18:17 240 ML Pantoprazole Sodium 40 mg DAILY@0600 PO 10/26/24 06:00 11/05/24 05:02 40 MG Apixaban 5 mg BID PO 10/29/24 22:00 11/05/24 21:25 5 MG Spironolactone 50 mg BIDD PO 11/01/24 10:00 11/05/24 18:17 50 MG Bumetanide 12.5 mg/Miscellaneous 50 ml @ 2 mls/hr Q24H IV 11/03/24 09:00 11/05/24 08:53 2 MLS/HR Potassium Chloride 40 meq BID PO 11/03/24 22:00 11/05/24 21:26 40 MEQ Diphenhydramine HCl 50 mg QHSP PRN IV 11/03/24 16:30 objective GENERAL: Alert and oriented x 3. No acute distress. Morbidly obese. EYES: PERRL, EOMI. Anicteric. HENT: Moist mucous membranes. LUNGS: Diminished breath sounds. CARDIOVASCULAR: Irregular rate and rhythm. ABDOMEN: Soft, nontender and nondistended. EXTREMITIES: +3 pitting edema. NEUROLOGIC: No focal neurological deficits. SKIN: Warm, dry. laboratory and microbiology Laboratory Tests 11/04/24 05:57 Test 11/04/24 05:57 Range/Units Serum Glucose 132 H 74-106 mg/dL Problem List Atrial fibrillation with rapid ventricular response, newly diagnosed. Left pleural effusion. Sepsis. Hyperkalemia. Acute kidney injury. Transaminitis. Prediabetes. History of alcoholism. Morbidly obese. Severe systolic HF EF 15%, large pleural effusions. Pericardial effusion. Assessment/Plan Continued all current supportive medical care. Amiodarone. Eliquis. Aspirin. GI prophylactics. Diuretics with Bumex. Tylenol for pain management . Additional plan as per the hospital course. Dietary Evaluation Review Comments: 1. Refer to CDE on DC for weight management 2. Continue current plan of care Expected Outcomes/Goals: To meet >75% estimated needs Fu 3-5 days Plan discussed with: Patient XIOMY JERONIMO MD Nov 05, 2024 21:49
[2024-11-06] VITALS (8 sets, daily range): BP systolic 96–113; BP diastolic 71–81; PULSE 65–86; RESP 16–21; TEMP 97.1–98.2; O2SAT 95–100
[2024-11-06 07:18] LABS: Anion Gap 11 (5-15)
[2024-11-06 07:21] LABS: Calcium 10.9 mg/dL (8.7-10.4); Carbon Dioxide 39 mmol/L (20-31); Chloride 79 mmol/L (98-107); Potassium 3.4 mmol/L (3.5-5.1); Sodium 129 mmol/L (136-145)
[2024-11-06 07:24] LABS: BUN/Creatinine Ratio 24.4 (10.0-20.0); Blood Urea Nitrogen 49 mg/dL (9-23); Glucose 139 mg/dL (74-106)
--- NOTE | 2024-11-06 16:02 | DVHPN2 ---
Assessment/Plan Assessment/Plan progress note 64 M with HFrEF 15%, afib on Eliquis, recurrent PLEF, morbid obesity with prolonged ICU and medsurge admission. seen today during rounds. k holding up. c/w diuresis. will do extended iv drip and transition when able. bicarb imnproved Physical exam morbidly obese aox4 JVD cannot be observed MMM PERLLA mild crackles s1 s2 irregular abdomen soft b/l LE edema Labs ekg imaging reviewed Assessment and plan Acute CHF exacerbation with systolic dysfunction Heart failure with reduced ejection fraction 15% Pericardial effusion not in tamponade Recurrent pleural effusion s/p throacentesis AFib with RVR , currently rate controlled Acute kidney injury 2/2 VMN now CKD 3b History of alcoholism Morbid obesity class I OHS/JEN with chronic CO2 retention Hypotension on midodrine Pericardial effusion Persistent hypokalemia dc diamox switch to bumex aim for -500 daily failed conversion to po, will reattempt on a later date amio for rate control potassium replacement scheduled, daily chem while on diuresis midodrine s/p dobu and dopa lifevest bedside c/w Eliquis and asa pt protonix diet mech soft dvt ppx on eliquis full code Plan discussed with: Patient Date of Service: Nov 06, 2024 Billing Provider: IDALMIS DIAZ MD Common Visit Codes: [id number] INP/OBS CARE(HIGH) IDALMIS DIAZ MD Nov 06, 2024 16:01
--- NOTE | 2024-11-06 18:49 | DVHPN2 ---
Progress Note Date Seen: Nov 06, 2024 Medical Necessity Reason Pt with a Central, PICC or Fol: Yes The following are medically ne: Dean Catheter Reason for dean catheter: Bladder Retention/Obstruc, Strict I&O Subjective Patient reports: No new complaints Review of Systems: Deferred Objective vital signs Vital Sign Date Time Temp Pulse Resp B/P (MAP) Pulse Ox O2 Delivery O2 Flow Rate FiO2 11/06/24 17:15 98.2 80 20 96/73 (81) 98 98.2 11/06/24 08:05 Nasal Cannula* 3 32 Total Intake and Output 11/05/24 11/05/24 11/06/24 15:00 23:00 07:00 Intake Total 8 ml 660 ml 474 ml Output Total 2250 ml 2400 ml Balance 8 ml -1590 ml -1926 ml medications Current Medications Medications Dose Ordered Sig/Nadia Route Start Time Stop Time Status Last Admin Dose Admin Vancomycin HCl 250 ml @ 200 mls/hr Q12H IV 10/08/24 14:00 UNV Midodrine 10 mg TID@0600,1200,1800 PO 10/13/24 12:00 11/06/24 17:13 10 MG Acetaminophen 650 mg Q6HP PRN PO 10/15/24 16:45 11/04/24 04:47 650 MG Enteral Nutritional Formula 240 ml BIDWM PO 10/23/24 18:00 11/06/24 18:08 240 ML Pantoprazole Sodium 40 mg DAILY@0600 PO 10/26/24 06:00 11/06/24 05:04 40 MG Apixaban 5 mg BID PO 10/29/24 22:00 11/06/24 09:11 5 MG Spironolactone 50 mg BIDD PO 11/01/24 10:00 11/06/24 17:14 50 MG Bumetanide 12.5 mg/Miscellaneous 50 ml @ 2 mls/hr Q24H IV 11/03/24 09:00 11/06/24 09:11 2 MLS/HR Potassium Chloride 40 meq BID PO 11/03/24 22:00 11/06/24 09:12 40 MEQ Diphenhydramine HCl 50 mg QHSP PRN IV 11/03/24 16:30 Examination: GENERAL:Abnormal, MSK:Abnormal, SKIN:Abnormal, NEURO:Normal laboratory and microbiology Laboratory Tests 11/06/24 05:47 11/04/24 05:57 Test 11/06/24 05:47 Range/Units Serum Glucose 139 H 74-106 mg/dL Microbiology Date/Time Source Procedure Growth Status 10/23/24 11:25 Pleural Fluid Gram Stain - Final Complete 10/23/24 11:25 Pleural Fluid Aerobic Culture - Final Complete 10/06/24 12:31 Nose MRSA Screen - Final Complete 10/05/24 19:19 Blood Blood Culture - Final NO GROWTH AFTER 5 DAYS OF INCUBATION. Complete Problem List/Assessment/Plan Problem List/Assessment/Plan Acute kidney injury due to hypotension/cardiorenal etiology ckd cr 1.1 on admission severe systolic HF EF 15%, large pleural effusions s/p thoracentesis pericardial effusion afib RVR Hyponatremia Hypokalemia Metabolic alkalosis secondary to diuretics Recommendations Bumex drip IV continue KCL replace as needed Discussed with daughter bedside cxr in AM overall net negative Plan discussed with: Patient, Daughter My Orders My Orders Orders - DINA FORBES MD Procedure Category Date Status Time Chest Two Views XY 11/07/24 Logged Routine 04:00 Dietary Evaluation Review Comments: 1. Refer to CDE on DC for weight management 2. Continue current plan of care Expected Outcomes/Goals: To meet >75% estimated needs Fu 3-5 days DINA FORBES MD Nov 06, 2024 18:49
--- NOTE | 2024-11-06 23:56 | DVHPN2 ---
Progress Note - Dictate Date Seen: Nov 06, 2024 Medical Necessity Reason Pt with a Central, PICC or Fol: Yes The following are medically ne: Dean Catheter Reason for dean catheter: Bladder Retention/Obstruc, Strict I&O Subjective Patient was seen and evaluated in follow up. No overnight events. Patient is on 3 LPM NC. Patient continued on diureses. NA 129, K 3.4, CO2 39, BUN 49, Ripening Room Attendant 2.01. Telemetry reviewed. vital signs Vital Sign Date Time Temp Pulse Resp B/P (MAP) Pulse Ox O2 Delivery O2 Flow Rate FiO2 11/06/24 21:00 97.1 82 16 113/76 (88) 97 97.1 11/06/24 08:05 Nasal Cannula* 3 32 Total Intake and Output 11/05/24 11/05/24 11/06/24 15:00 23:00 07:00 Intake Total 8 ml 660 ml 474 ml Output Total 2250 ml 2400 ml Balance 8 ml -1590 ml -1926 ml medications Current Medications Medications Dose Ordered Sig/Nadia Route Start Time Stop Time Status Last Admin Dose Admin Vancomycin HCl 250 ml @ 200 mls/hr Q12H IV 10/08/24 14:00 UNV Midodrine 10 mg TID@0600,1200,1800 PO 10/13/24 12:00 11/06/24 17:13 10 MG Acetaminophen 650 mg Q6HP PRN PO 10/15/24 16:45 11/06/24 22:12 650 MG Enteral Nutritional Formula 240 ml BIDWM PO 10/23/24 18:00 11/06/24 18:08 240 ML Pantoprazole Sodium 40 mg DAILY@0600 PO 10/26/24 06:00 11/06/24 05:04 40 MG Apixaban 5 mg BID PO 10/29/24 22:00 11/06/24 22:06 5 MG Spironolactone 50 mg BIDD PO 11/01/24 10:00 11/06/24 17:14 50 MG Bumetanide 12.5 mg/Miscellaneous 50 ml @ 2 mls/hr Q24H IV 11/03/24 09:00 11/06/24 09:11 2 MLS/HR Potassium Chloride 40 meq BID PO 11/03/24 22:00 11/06/24 22:06 40 MEQ Diphenhydramine HCl 50 mg QHSP PRN IV 11/03/24 16:30 objective GENERAL: Alert and oriented x 3. No acute distress. Morbidly obese. EYES: PERRL, EOMI. Anicteric. HENT: Moist mucous membranes. LUNGS: Diminished breath sounds. CARDIOVASCULAR: Irregular rate and rhythm. ABDOMEN: Soft, nontender and nondistended. EXTREMITIES: +3 pitting edema. NEUROLOGIC: No focal neurological deficits. SKIN: Warm, dry. laboratory and microbiology Laboratory Tests 11/06/24 05:47 11/04/24 05:57 Test 11/06/24 05:47 Range/Units Serum Glucose 139 H 74-106 mg/dL Problem List Atrial fibrillation with rapid ventricular response, newly diagnosed. Left pleural effusion. Sepsis. Hyperkalemia. Acute kidney injury. Transaminitis. Prediabetes. History of alcoholism. Morbidly obese. Severe systolic HF EF 15%, large pleural effusions. Pericardial effusion. Assessment/Plan Continued all current supportive medical care. Tylenol for pain management . Eliquis. Diuretics with Bumex. GI prophylactics. Additional plan as per the hospital course. Dietary Evaluation Review Comments: 1. Refer to CDE on DC for weight management 2. Continue current plan of care Expected Outcomes/Goals: To meet >75% estimated needs Fu 3-5 days Plan discussed with: Patient XIOMY JERONIMO MD Nov 06, 2024 23:56
[2024-11-07] VITALS (8 sets, daily range): BP systolic 104–119; BP diastolic 71–88; PULSE 75–83; RESP 16–20; TEMP 97–98.2; O2SAT 96–98
[2024-11-07 06:39] LABS: Hematocrit 46.7 % (41.0-53.0); Hemoglobin 15.6 g/dL (13.5-17.5); Mean Corpuscular Hemoglobin 30.3 pg (28.0-32.0); Mean Corpuscular Volume 90.7 fL (80.0-100.0); Nucleated Red Blood Cells % 0.1 %
--- NOTE | 2024-11-07 06:47 | DVH ---
CHEST RADIOGRAPH Indication: sob Technique: Single frontal view of the chest was obtained Comparison: XY CHEST XRAY 1 VIEW on DOS: 11/03/24 FINDINGS: Lines and Tubes: None Lungs: Bilateral airspace disease. Pleura: Bilateral pleural effusions. No pneumothorax. Cardiomediastinal contours: Cardiomegaly. Bones: No acute osseous abnormality. IMPRESSION: 1. Bilateral airspace disease and pleural effusions. Cardiomegaly. No significant interval change.
[2024-11-07 06:57] LABS: Anion Gap 11 (5-15); Potassium 3.5 mmol/L (3.5-5.1)
[2024-11-07 06:58] LABS: Calcium 10.1 mg/dL (8.7-10.4)
[2024-11-07 07:03] LABS: BUN/Creatinine Ratio 26.4 (10.0-20.0)
[2024-11-07 07:06] LABS: Blood Urea Nitrogen 57 mg/dL (9-23); Carbon Dioxide 39 mmol/L (20-31); Chloride 77 mmol/L (98-107); Glucose 149 mg/dL (74-106); Sodium 127 mmol/L (136-145)
--- NOTE | 2024-11-07 11:45 | DVHPN2 ---
Assessment/Plan Assessment/Plan progress note 64 M with HFrEF 15%, afib on Eliquis, recurrent PLEF, morbid obesity with prolonged ICU and medsurge admission. seen today during rounds. switch dean as its more than 30 days. xray not changed much. will check lung US to see if needed to be drained. Physical exam morbidly obese aox4 JVD cannot be observed MMM PERLLA mild crackles s1 s2 irregular abdomen soft b/l LE edema Labs ekg imaging reviewed Assessment and plan Acute CHF exacerbation with systolic dysfunction Heart failure with reduced ejection fraction 15% Pericardial effusion not in tamponade Recurrent pleural effusion s/p throacentesis AFib with RVR , currently rate controlled Acute kidney injury 2/2 VMN now CKD 3b History of alcoholism Morbid obesity class I OHS/JEN with chronic CO2 retention Hypotension on midodrine Pericardial effusion Persistent hypokalemia dc diamox switch to bumex aim for -500 daily failed conversion to po, will reattempt on a later date amio for rate control potassium replacement scheduled, daily chem while on diuresis midodrine s/p dobu and dopa lifevest bedside c/w Eliquis and asa pt protonix diet mech soft dvt ppx on eliquis full code Plan discussed with: Patient My Orders Orders - IDALMIS DIAZ MD Procedure Category Date Status Time Ok To Change Dean ORDERS 11/07/24 Transmitted 09:56 Date of Service: Nov 07, 2024 Billing Provider: IDALMIS DIAZ MD Common Visit Codes: [id number] INP/OBS CARE(HIGH) IDALMIS DIAZ MD Nov 07, 2024 11:45
--- NOTE | 2024-11-07 18:39 | DVHPN2 ---
Progress Note Date Seen: Nov 07, 2024 Medical Necessity Reason Pt with a Central, PICC or Fol: Yes The following are medically ne: Dean Catheter Reason for dean catheter: Bladder Retention/Obstruc, Strict I&O Subjective Patient reports: No new complaints Review of Systems: Deferred Objective vital signs Vital Sign Date Time Temp Pulse Resp B/P (MAP) Pulse Ox O2 Delivery O2 Flow Rate FiO2 11/07/24 17:30 97.7 77 17 105/71 (82) 97 97.7 11/06/24 20:00 Nasal Cannula* 3 32 Total Intake and Output 11/06/24 11/06/24 11/07/24 15:00 23:00 07:00 Intake Total 130 ml 800 ml 320 ml Output Total 2500 ml 1050 ml Balance 130 ml -1700 ml -730 ml medications Current Medications Medications Dose Ordered Sig/Nadia Route Start Time Stop Time Status Last Admin Dose Admin Vancomycin HCl 250 ml @ 200 mls/hr Q12H IV 10/08/24 14:00 UNV Midodrine 10 mg TID@0600,1200,1800 PO 10/13/24 12:00 11/07/24 13:40 10 MG Acetaminophen 650 mg Q6HP PRN PO 10/15/24 16:45 11/07/24 10:09 650 MG Enteral Nutritional Formula 240 ml BIDWM PO 10/23/24 18:00 11/06/24 18:08 240 ML Pantoprazole Sodium 40 mg DAILY@0600 PO 10/26/24 06:00 11/07/24 05:31 40 MG Apixaban 5 mg BID PO 10/29/24 22:00 11/07/24 10:08 5 MG Spironolactone 50 mg BIDD PO 11/01/24 10:00 11/07/24 05:32 50 MG Potassium Chloride 40 meq BID PO 11/03/24 22:00 11/07/24 10:08 40 MEQ Diphenhydramine HCl 50 mg QHSP PRN IV 11/03/24 16:30 Examination: GENERAL:Abnormal, MSK:Abnormal, SKIN:Abnormal, NEURO:Abnormal laboratory and microbiology Laboratory Tests 11/07/24 06:18 Test 11/07/24 06:18 Range/Units Serum Glucose 149 H 74-106 mg/dL Microbiology Date/Time Source Procedure Growth Status 10/23/24 11:25 Pleural Fluid Gram Stain - Final Complete 10/23/24 11:25 Pleural Fluid Aerobic Culture - Final Complete 10/06/24 12:31 Nose MRSA Screen - Final Complete 10/05/24 19:19 Blood Blood Culture - Final NO GROWTH AFTER 5 DAYS OF INCUBATION. Complete Problem List/Assessment/Plan Problem List/Assessment/Plan Acute kidney injury due to hypotension/cardiorenal etiology ckd cr 1.1 on admission severe systolic HF EF 15%, large pleural effusions s/p thoracentesis pericardial effusion afib RVR Hyponatremia Hypokalemia Metabolic alkalosis secondary to diuretics Recommendations Bumex drip dc today Transition to p.o. diuretics tomorrow Refer this patient to heart transplant center after discharge KCL replace as needed Discussed with daughter bedside Plan discussed with: Patient, Other My Orders My Orders Orders - DINA FORBES MD Procedure Category Date Status Time Chest Xray 1 View XY 11/07/24 Resulted 04:00 Communication Order ORDERS 11/07/24 Transmitted 14:24 Communication Order ORDERS 11/07/24 Transmitted 18:37 Dietary Evaluation Review Comments: 1. Refer to CDE on DC for weight management 2. Continue current plan of care Expected Outcomes/Goals: To meet >75% estimated needs Fu 3-5 days DINA FORBES MD Nov 07, 2024 18:39
--- NOTE | 2024-11-07 23:51 | DVHPN2 ---
Progress Note - Dictate Date Seen: Nov 07, 2024 Medical Necessity Reason Pt with a Central, PICC or Fol: Yes The following are medically ne: Dean Catheter Reason for dean catheter: Bladder Retention/Obstruc, Strict I&O Subjective Patient was seen and evaluated in follow up. Patient is complaining of generalized pain. NA 127, CO2 39, BUN 57, HOST/HOSTESS RESTAURANT 2.16. Chest x-ray shows bilateral airspace disease and pleural effusions and cardiomegaly. Telemetry reviewed. vital signs Vital Sign Date Time Temp Pulse Resp B/P (MAP) Pulse Ox O2 Delivery O2 Flow Rate FiO2 11/07/24 13:00 98.2 80 20 107/75 (86) 97 98.2 11/06/24 20:00 Nasal Cannula* 3 32 Total Intake and Output 11/06/24 11/06/24 11/07/24 15:00 23:00 07:00 Intake Total 130 ml 800 ml 320 ml Output Total 2500 ml 1050 ml Balance 130 ml -1700 ml -730 ml medications Current Medications Medications Dose Ordered Sig/Nadia Route Start Time Stop Time Status Last Admin Dose Admin Vancomycin HCl 250 ml @ 200 mls/hr Q12H IV 10/08/24 14:00 UNV Midodrine 10 mg TID@0600,1200,1800 PO 10/13/24 12:00 11/07/24 13:40 10 MG Acetaminophen 650 mg Q6HP PRN PO 10/15/24 16:45 11/07/24 10:09 650 MG Enteral Nutritional Formula 240 ml BIDWM PO 10/23/24 18:00 11/06/24 18:08 240 ML Pantoprazole Sodium 40 mg DAILY@0600 PO 10/26/24 06:00 11/07/24 05:31 40 MG Apixaban 5 mg BID PO 10/29/24 22:00 11/07/24 10:08 5 MG Spironolactone 50 mg BIDD PO 11/01/24 10:00 11/07/24 05:32 50 MG Bumetanide 12.5 mg/Miscellaneous 50 ml @ 2 mls/hr Q24H IV 11/03/24 09:00 11/07/24 10:10 2 MLS/HR Potassium Chloride 40 meq BID PO 11/03/24 22:00 11/07/24 10:08 40 MEQ Diphenhydramine HCl 50 mg QHSP PRN IV 11/03/24 16:30 objective GENERAL: Alert and oriented x 3. No acute distress. Morbidly obese. EYES: PERRL, EOMI. Anicteric. HENT: Moist mucous membranes. LUNGS: Diminished breath sounds. CARDIOVASCULAR: Irregular rate and rhythm. ABDOMEN: Soft, nontender and nondistended. EXTREMITIES: +3 pitting edema. NEUROLOGIC: No focal neurological deficits. SKIN: Warm, dry. laboratory and microbiology Laboratory Tests 11/07/24 06:18 Test 11/07/24 06:18 Range/Units Serum Glucose 149 H 74-106 mg/dL Problem List Atrial fibrillation with rapid ventricular response, newly diagnosed. Left pleural effusion. Sepsis. Hyperkalemia. Acute kidney injury. Transaminitis. Prediabetes. History of alcoholism. Morbidly obese. Severe systolic HF EF 15%, large pleural effusions. Pericardial effusion. Assessment/Plan Continued all current supportive medical care. Tylenol for pain management . Eliquis. Aldactone. Midodrine. Diuretics with Bumex. GI prophylactics. Additional plan as per the hospital course. Dietary Evaluation Review Comments: 1. Refer to CDE on DC for weight management 2. Continue current plan of care Expected Outcomes/Goals: To meet >75% estimated needs Fu 3-5 days Plan discussed with: Patient XIOMY JERONIMO MD Nov 07, 2024 13:52
[2024-11-08] VITALS (8 sets, daily range): BP systolic 91–110; BP diastolic 64–81; PULSE 61–82; RESP 16–18; TEMP 97.2–98.2; O2SAT 94–97
[2024-11-08 07:09] LABS: Anion Gap 10 (5-15)
[2024-11-08 07:15] LABS: BUN/Creatinine Ratio 29.9 (10.0-20.0)
[2024-11-08 07:16] LABS: Magnesium 2.5 mg/dL (1.6-2.6)
[2024-11-08 07:18] LABS: Blood Urea Nitrogen 64 mg/dL (9-23); Calcium 11.0 mg/dL (8.7-10.4); Carbon Dioxide 38 mmol/L (20-31); Chloride 77 mmol/L (98-107); Glucose 140 mg/dL (74-106); Potassium 3.5 mmol/L (3.5-5.1); Sodium 125 mmol/L (136-145)
[2024-11-08 07:40] LABS: Hematocrit 46.9 % (41.0-53.0); Hemoglobin 15.8 g/dL (13.5-17.5); Mean Corpuscular Hemoglobin 30.8 pg (28.0-32.0); Mean Corpuscular Volume 91.2 fL (80.0-100.0); Nucleated Red Blood Cells % 0.3 %
--- NOTE | 2024-11-08 12:41 | DVHPN2 ---
Progress Note Date Seen: Nov 08, 2024 Medical Necessity Reason Pt with a Central, PICC or Fol: Yes The following are medically ne: Dean Catheter Reason for dean catheter: Bladder Retention/Obstruc, Strict I&O Subjective Patient reports: Other Review of Systems: Deferred Objective vital signs Vital Sign Date Time Temp Pulse Resp B/P (MAP) Pulse Ox O2 Delivery O2 Flow Rate FiO2 11/08/24 09:00 97.2 76 17 110/81 (91) 96 97.2 11/08/24 08:00 Nasal Cannula* 3 32 Total Intake and Output 11/07/24 11/07/24 11/08/24 15:00 23:00 07:00 Intake Total 450 ml 480 ml 800 ml Output Total 1100 ml 6000 ml 1650 ml Balance -650 ml -5520 ml -850 ml medications Current Medications Medications Dose Ordered Sig/Nadia Route Start Time Stop Time Status Last Admin Dose Admin Vancomycin HCl 250 ml @ 200 mls/hr Q12H IV 10/08/24 14:00 UNV Midodrine 10 mg TID@0600,1200,1800 PO 10/13/24 12:00 11/08/24 05:20 10 MG Acetaminophen 650 mg Q6HP PRN PO 10/15/24 16:45 11/08/24 10:17 650 MG Enteral Nutritional Formula 240 ml BIDWM PO 10/23/24 18:00 11/08/24 08:00 240 ML Pantoprazole Sodium 40 mg DAILY@0600 PO 10/26/24 06:00 11/08/24 05:21 40 MG Apixaban 5 mg BID PO 10/29/24 22:00 11/08/24 10:06 5 MG Spironolactone 50 mg BIDD PO 11/01/24 10:00 11/08/24 05:20 50 MG Potassium Chloride 40 meq BID PO 11/03/24 22:00 11/08/24 10:06 40 MEQ Diphenhydramine HCl 50 mg QHSP PRN IV 11/03/24 16:30 Examination: GENERAL:Abnormal, LUNGS:Abnormal, MSK:Abnormal, SKIN:Abnormal, NEURO:Normal laboratory and microbiology Laboratory Tests 11/08/24 06:13 Test 11/08/24 06:13 Range/Units Serum Glucose 140 H 74-106 mg/dL Microbiology Date/Time Source Procedure Growth Status 10/23/24 11:25 Pleural Fluid Gram Stain - Final Complete 10/23/24 11:25 Pleural Fluid Aerobic Culture - Final Complete 10/06/24 12:31 Nose MRSA Screen - Final Complete 10/05/24 19:19 Blood Blood Culture - Final NO GROWTH AFTER 5 DAYS OF INCUBATION. Complete Problem List/Assessment/Plan Problem List/Assessment/Plan Acute kidney injury due to hypotension/cardiorenal etiology ckd cr 1.1 on admission severe systolic HF EF 15%, large pleural effusions s/p thoracentesis pericardial effusion afib RVR Hyponatremia Hypokalemia Metabolic alkalosis secondary to diuretics Recommendations Bumex drip dc Transition to p.o. diuretics bumex 1mg po bid Refer this patient to heart transplant center after discharge KCL replace as needed Plan discussed with: Patient, Other My Orders My Orders Orders - DINA FORBES MD Procedure Category Date Status Time Communication Order ORDERS 11/07/24 Transmitted 14:24 Communication Order ORDERS 11/07/24 Transmitted 18:37 Dietary Evaluation Review Comments: 1. Refer to CDE on DC for weight management 2. Continue current plan of care Expected Outcomes/Goals: To meet >75% estimated needs Fu 3-5 days DINA FORBES MD Nov 08, 2024 12:41
--- NOTE | 2024-11-08 14:53 | DVHPN2 ---
Progress Note - Dictate Date Seen: Nov 08, 2024 Medical Necessity Reason Pt with a Central, PICC or Fol: Yes The following are medically ne: Dean Catheter Reason for dean catheter: Bladder Retention/Obstruc, Strict I&O Subjective Patient was seen and evaluated in follow up. Patient is complaining of generalized pain, receiving Tylenol for pain management. NA 125, CL 77, CO2 38, BUN 64, ROCK WORKER 2.14, Telemetry reviewed. vital signs Vital Sign Date Time Temp Pulse Resp B/P (MAP) Pulse Ox O2 Delivery O2 Flow Rate FiO2 11/08/24 09:00 97.2 76 17 110/81 (91) 96 97.2 11/08/24 08:00 Nasal Cannula* 3 32 Total Intake and Output 11/07/24 11/07/24 11/08/24 15:00 23:00 07:00 Intake Total 450 ml 480 ml 800 ml Output Total 1100 ml 6000 ml 1650 ml Balance -650 ml -5520 ml -850 ml medications Current Medications Medications Dose Ordered Sig/Nadia Route Start Time Stop Time Status Last Admin Dose Admin Vancomycin HCl 250 ml @ 200 mls/hr Q12H IV 10/08/24 14:00 UNV Midodrine 10 mg TID@0600,1200,1800 PO 10/13/24 12:00 11/08/24 05:20 10 MG Acetaminophen 650 mg Q6HP PRN PO 10/15/24 16:45 11/08/24 10:17 650 MG Enteral Nutritional Formula 240 ml BIDWM PO 10/23/24 18:00 11/08/24 08:00 240 ML Pantoprazole Sodium 40 mg DAILY@0600 PO 10/26/24 06:00 11/08/24 05:21 40 MG Apixaban 5 mg BID PO 10/29/24 22:00 11/08/24 10:06 5 MG Spironolactone 50 mg BIDD PO 11/01/24 10:00 11/08/24 05:20 50 MG Potassium Chloride 40 meq BID PO 11/03/24 22:00 11/08/24 10:06 40 MEQ Diphenhydramine HCl 50 mg QHSP PRN IV 11/03/24 16:30 objective GENERAL: Alert and oriented x 3. No acute distress. Morbidly obese. EYES: PERRL, EOMI. Anicteric. HENT: Moist mucous membranes. LUNGS: Diminished breath sounds. CARDIOVASCULAR: Irregular rate and rhythm. ABDOMEN: Soft, nontender and nondistended. EXTREMITIES: +3 pitting edema. NEUROLOGIC: No focal neurological deficits. SKIN: Warm, dry. laboratory and microbiology Laboratory Tests 11/08/24 06:13 Test 11/08/24 06:13 Range/Units Serum Glucose 140 H 74-106 mg/dL Problem List Atrial fibrillation with rapid ventricular response, newly diagnosed. Left pleural effusion. Sepsis. Hyperkalemia. Acute kidney injury. Transaminitis. Prediabetes. History of alcoholism. Morbidly obese. Severe systolic HF EF 15%, large pleural effusions. Pericardial effusion. Assessment/Plan Continued all current supportive medical care. Tylenol for pain management . Eliquis. Aldactone. Midodrine. GI prophylactics. Additional plan as per the hospital course. Dietary Evaluation Review Comments: 1. Refer to CDE on DC for weight management 2. Continue current plan of care Expected Outcomes/Goals: To meet >75% estimated needs Fu 3-5 days Plan discussed with: Patient XIOMY JERONIMO MD Nov 08, 2024 11:51
--- NOTE | 2024-11-08 16:38 | DVHPN2 ---
Subjective Patient still some shortness of breath, lower extremity edema still significant despite complete diuresis. Patient complains of ongoing weakness and leg swelling being bothersome. Reviewed: Care Plan, H&P, Labs, Medications, Radiology Changes from previous H/P or p: No Changes General: Per HPI Eyes: No Pain, No Vision change, No Conjunctivae inflammation, No Eyelid inflammation, No Other, No Redness ENT: No Ear pain, No Ear discharge, No Nose pain, No Nose discharge, No Nose congestion, No Mouth pain, No Mouth swelling, No Throat pain, No Throat swelling, No Other Cardiovascular: No Chest Pain; Palpitations; No Orthopnea, No Paroxysmal Noc. Dyspnea, No Edema, No Lt Headedness, No Other Respiratory: No Cough, No Dry; Shortness of breath; No SOB with excertion, No Wheezing, No Hemoptysis, No Pleuritic Pain, No Sputum, No Other Gastrointestinal: No Nausea, No Vomiting, No Abdominal Pain, No Diarrhea, No Constipation, No Melena, No Hematochezia, No Other Genitourinary: No Dysuria, No Frequency, No Incontinence, No Hematuria, No Retention, No Other Musculoskeletal: No other, No neck pain, No shoulder pain, No arm pain, No back pain, No hand pain, No leg pain, No foot pain Skin: No Rash, No Lesions, No Jaundice, No Bruising, No Other Objective Vitals Vital Signs Date Time Temp Pulse Resp B/P (MAP) Pulse Ox O2 Delivery O2 Flow Rate FiO2 11/08/24 13:00 97.3 61 17 91/66 (74) 96 97.3 11/08/24 08:00 Nasal Cannula* 3 32 Intake/Output Intake and Output 11/08/24 07:00 Intake Total 1730 ml Output Total 8750 ml Balance -7020 ml Intake Oral 1730 ml Output Urine Total 8750 ml Exam GEN: Healthy appearing, well-developed, NAD. HEENT: NC/AT; MMM. CV: RRR, no m/r/g. LUNGS: Decreased air movement in all lung ortiz. ABD: Soft, NT/ND, NBS, no masses or organomegaly. EXT: skin Warm, well perfused. no rashes. Edema due to 4+ up to knees bilaterally. NEURO: Ambulating with no limitations. No focal deficits. General Appearance: Alert, Oriented X3, mild distress HEENT: Atraumatic, PERRLA, EOMI, Mucous membr. moist/pink Neck: Supple Lungs: Other (Bilateral rhonchi) Cardiovascular: Regular rate, Normal S1, Normal S2, No murmurs Abdomen: Normal bowel sounds, Soft, No tenderness Extremities: Other (2+ edema B) Neuro: Cranial nerves 3-12 NL Psych/Mental Status: Mental status NL Medications Current Medications Medications Dose Ordered Sig/Nadia Route Start Time Stop Time Status Last Admin Dose Admin Vancomycin HCl 250 ml @ 200 mls/hr Q12H IV 10/08/24 14:00 UNV Midodrine 10 mg TID@0600,1200,1800 PO 10/13/24 12:00 11/08/24 12:54 10 MG Acetaminophen 650 mg Q6HP PRN PO 10/15/24 16:45 11/08/24 10:17 650 MG Enteral Nutritional Formula 240 ml BIDWM PO 10/23/24 18:00 11/08/24 08:00 240 ML Pantoprazole Sodium 40 mg DAILY@0600 PO 10/26/24 06:00 11/08/24 05:21 40 MG Apixaban 5 mg BID PO 10/29/24 22:00 11/08/24 10:06 5 MG Potassium Chloride 40 meq BID PO 11/03/24 22:00 11/08/24 10:06 40 MEQ Diphenhydramine HCl 50 mg QHSP PRN IV 11/03/24 16:30 Bumetanide 1 mg BIDD PO 11/08/24 18:00 Laboratory Results Laboratory Tests 11/08/24 06:13 Chemistry Test 11/08/24 06:13 Calcium Level 11.0 mg/dL (8.7-10.4) H Magnesium Level 2.5 mg/dL (1.6-2.6) Phosphorus Level 4.5 mg/dL (2.4-5.1) Urinalysis Test 10/05/24 18:45 10/31/24 10:00 Urine Color Yellow (Yellow) Urine Clarity Clear (Clear) Urine pH 6.0 (5.0-9.0) Urine Specific [place] 1.031 (1.001-1.035) Urine Protein 2+ (Negative) H Urine Ketones Negative (Negative) Urine Blood Negative /uL (Negative) Urine Nitrite Negative (Negative) Urine Bilirubin Negative (Negative) Urine Urobilinogen 3 mg/dL (Negative) H Urine Leukocyte Esterase Negative /uL (Negative) Urine RBC 2 /hpf (0 - 3) Urine Microscopic WBC 8 /HPF (0-3) H Urine Squamous Epithelial Cells Few /hpf (<5) Urine Bacteria Few /hpf (None Seen) H Urine Hyaline Casts Few /lpf (0 - 2) Urine Mucus Few (None Seen) Urine Glucose Trace mg/dL (Normal) Urine Creatinine 49.93 mg/dL (30.0-125.0) Urine Protein/Creatinine Ratio 0.60 Urine Sodium 23 mmol/L (40-220) L Urine Potassium 91 mmol/L (12-62) H Urine Total Protein 29.8 mg/dL (1-14) H Microbiology Microbiology Date/Time Source Procedure Growth Status 10/23/24 11:25 Pleural Fluid Gram Stain - Final Complete 10/23/24 11:25 Pleural Fluid Aerobic Culture - Final Complete 10/06/24 12:31 Nose MRSA Screen - Final Complete 10/05/24 19:19 Blood Blood Culture - Final NO GROWTH AFTER 5 DAYS OF INCUBATION. Complete Labs and/or images reviewed: Labs reviewed by me, Image(s) reviewed by me Assessment/Plan Assessment/Plan 64 M with HFrEF 15%, afib on Eliquis, recurrent PLEF, morbid obesity with prolonged ICU and medsurge admission. 10/29- covering patient for today for primary. Patient has been here for almost 1 month. Multiple comorbidities. Severe depressed systolic function 15% with global hypokinesis.. Patient also have CKD, protein urea,. Hyponatremia likely from volume overload. Nephrology following closely, appreciate recommendations. Patient is being started on Diamox because of significant alkalosis has been present for last 3 or 4 days. The diuresis was stopped due to this reason. Patient remains edematous. Patient may have contaminant kidney disease causing possible nephrotic syndrome?. Patient has AFib and needs anticoagulation. Start Eliquis, keep patient on tele. Agree with Nephrology plan. 11/07 - Dr Merida: seen today during rounds. switch dean as its more than 30 days. xray not changed much. will check lung US to see if needed to be drained. 11/08 - patient continues to have lower extremity edema, decreased breath sounds on left lung. Appears that patient has now gotten LifeVest. He still has contraction alkalosis? . Diamox was discontinued yesterday. Nephrology following. Continuing p.o. Bumex. Hyponatremia continues, chloride continues to fall. Kidney levels stable around low 2.1. CBC stable. Today patient was too weak to work with PT. Stays in bed. RN raising concern for possible sacral pressure ulcer. Currently patient is on midodrine, Eliquis, Bumex, Protonix, daily potassium. Assessment and plan Acute CHF exacerbation with systolic dysfunction Heart failure with reduced ejection fraction 15% Pericardial effusion not in tamponade Recurrent pleural effusion s/p throacentesis AFib with RVR , currently rate controlled Acute kidney injury 2/2 VMN now CKD 3b History of alcoholism Morbid obesity class I OHS/JEN with chronic CO2 retention Hypotension on midodrine Pericardial effusion Persistent hypokalemia dc diamox switch to bumex aim for -500 daily failed conversion to po, will reattempt on a later date amio for rate control potassium replacement scheduled, daily chem while on diuresis midodrine s/p dobu and dopa lifevest bedside c/w Eliquis and asa pt protonix diet mech soft dvt ppx on eliquis Plan discussed with: Patient Date of Service: Nov 08, 2024 Billing Provider: DESMOND MOODY MD Common Visit Codes: [id number] INP/OBS CARE(HIGH) DESMOND MOODY MD Nov 08, 2024 16:38
[2024-11-08] MEDS: BUMETANIDE 1 MG TAB PO SCH (18:20)
[2024-11-09] VITALS (9 sets, daily range): BP systolic 90–134; BP diastolic 62–113; PULSE 63–147; RESP 16–33; TEMP 97.1–98.6; O2SAT 95–98
[2024-11-09 07:33] LABS: Alanine Aminotransferase 27 U/L (7-40); Albumin 4.3 g/dL (3.2-4.8); Alkaline Phosphatase 92 U/L (46-116); Anion Gap 12 (5-15); BUN/Creatinine Ratio 31.4 (10.0-20.0); Calcium 10.2 mg/dL (8.7-10.4); Potassium 3.6 mmol/L (3.5-5.1); Total Protein 6.4 g/dL (5.7-8.2)
[2024-11-09 07:36] LABS: Bilirubin, Total 1.4 mg/dL (0.2-1.0); Blood Urea Nitrogen 66 mg/dL (9-23); Carbon Dioxide 37 mmol/L (20-31); Chloride 76 mmol/L (98-107); Glucose 132 mg/dL (74-106); Sodium 125 mmol/L (136-145)
[2024-11-09 15:12] LABS: Base Excess 9.4 mmol/L (-2.0-3.0)
[2024-11-09] MEDS: acetaZOLAMIDE SODIUM 500 MG VL IV ONE (16:54)
--- NOTE | 2024-11-09 17:56 | DVHPN2 ---
Subjective Patient still some shortness of breath, lower extremity edema still significant despite complete diuresis. Patient complains of ongoing weakness and leg swelling being bothersome. Reviewed: Care Plan, H&P, Labs, Medications, Radiology Changes from previous H/P or p: No Changes General: Per HPI Eyes: No Pain, No Vision change, No Conjunctivae inflammation, No Eyelid inflammation, No Other, No Redness ENT: No Ear pain, No Ear discharge, No Nose pain, No Nose discharge, No Nose congestion, No Mouth pain, No Mouth swelling, No Throat pain, No Throat swelling, No Other Cardiovascular: Palpitations Respiratory: Shortness of breath Gastrointestinal: No Nausea, No Vomiting, No Abdominal Pain, No Diarrhea, No Constipation, No Melena, No Hematochezia, No Other Genitourinary: No Dysuria, No Frequency, No Incontinence, No Hematuria, No Retention, No Other Musculoskeletal: No other, No neck pain, No shoulder pain, No arm pain, No back pain, No hand pain, No leg pain, No foot pain Skin: No Rash, No Lesions, No Jaundice, No Bruising, No Other Objective Vitals Vital Signs Date Time Temp Pulse Resp B/P (MAP) Pulse Ox O2 Delivery O2 Flow Rate FiO2 11/09/24 16:54 97/63 11/09/24 13:00 97.1 79 17 96 97.1 11/09/24 08:00 Nasal Cannula* 3 32 Intake/Output Intake and Output 11/09/24 07:00 Intake Total 3045 ml Output Total 1200 ml Balance 1845 ml Intake Oral 1495 ml Other 1550 ml Output Urine Total 1200 ml # Bowel Movements 1 Exam GEN: Healthy appearing, well-developed, NAD. HEENT: NC/AT; MMM. CV: RRR, no m/r/g. LUNGS: Decreased air movement in all lung ortiz. ABD: Soft, NT/ND, NBS, no masses or organomegaly. EXT: skin Warm, well perfused. no rashes. Edema due to 4+ up to knees bilaterally. NEURO: Ambulating with no limitations. No focal deficits. General Appearance: Alert, Oriented X3, mild distress HEENT: Atraumatic, PERRLA, EOMI, Mucous membr. moist/pink Neck: Supple Lungs: Other Cardiovascular: Regular rate, Normal S1, Normal S2, No murmurs Abdomen: Normal bowel sounds, Soft, No tenderness Extremities: Other Neuro: Cranial nerves 3-12 NL Psych/Mental Status: Mental status NL Medications Current Medications Medications Dose Ordered Sig/Nadia Route Start Time Stop Time Status Last Admin Dose Admin Vancomycin HCl 250 ml @ 200 mls/hr Q12H IV 10/08/24 14:00 UNV Midodrine 10 mg TID@0600,1200,1800 PO 10/13/24 12:00 11/09/24 16:53 10 MG Acetaminophen 650 mg Q6HP PRN PO 10/15/24 16:45 11/08/24 21:52 650 MG Enteral Nutritional Formula 240 ml BIDWM PO 10/23/24 18:00 11/09/24 16:54 240 ML Pantoprazole Sodium 40 mg DAILY@0600 PO 10/26/24 06:00 11/09/24 05:35 40 MG Apixaban 5 mg BID PO 10/29/24 22:00 11/09/24 09:19 5 MG Potassium Chloride 40 meq BID PO 11/03/24 22:00 11/09/24 09:19 40 MEQ Diphenhydramine HCl 50 mg QHSP PRN IV 11/03/24 16:30 Bumetanide 1 mg BIDD PO 11/08/24 18:00 11/09/24 16:53 1 MG Laboratory Results Laboratory Tests 11/08/24 06:13 11/09/24 06:04 Chemistry Test 11/09/24 06:04 Albumin 4.3 g/dL (3.2-4.8) Calcium Level 10.2 mg/dL (8.7-10.4) Total Protein 6.4 g/dL (5.7-8.2) LFT Test 11/09/24 06:04 Alanine Aminotransferase (ALT) 27 U/L (7-40) Alkaline Phosphatase 92 U/L (46-116) Aspartate Amino Transferase (AST) 37 U/L (13-40) Total Bilirubin 1.4 mg/dL (0.2-1.0) H Urinalysis Test 10/05/24 18:45 10/31/24 10:00 Urine Color Yellow (Yellow) Urine Clarity Clear (Clear) Urine pH 6.0 (5.0-9.0) Urine Specific [place] 1.031 (1.001-1.035) Urine Protein 2+ (Negative) H Urine Ketones Negative (Negative) Urine Blood Negative /uL (Negative) Urine Nitrite Negative (Negative) Urine Bilirubin Negative (Negative) Urine Urobilinogen 3 mg/dL (Negative) H Urine Leukocyte Esterase Negative /uL (Negative) Urine RBC 2 /hpf (0 - 3) Urine Microscopic WBC 8 /HPF (0-3) H Urine Squamous Epithelial Cells Few /hpf (<5) Urine Bacteria Few /hpf (None Seen) H Urine Hyaline Casts Few /lpf (0 - 2) Urine Mucus Few (None Seen) Urine Glucose Trace mg/dL (Normal) Urine Creatinine 49.93 mg/dL (30.0-125.0) Urine Protein/Creatinine Ratio 0.60 Urine Sodium 23 mmol/L (40-220) L Urine Potassium 91 mmol/L (12-62) H Urine Total Protein 29.8 mg/dL (1-14) H Blood Gas Results Test 11/09/24 15:05 Arterial Blood pH 7.580 (7.350-7.450) FiO2 % 21.0 Microbiology Microbiology Date/Time Source Procedure Growth Status 10/23/24 11:25 Pleural Fluid Gram Stain - Final Complete 10/23/24 11:25 Pleural Fluid Aerobic Culture - Final Complete 10/06/24 12:31 Nose MRSA Screen - Final Complete 10/05/24 19:19 Blood Blood Culture - Final NO GROWTH AFTER 5 DAYS OF INCUBATION. Complete Labs and/or images reviewed: Labs reviewed by me, Image(s) reviewed by me Assessment/Plan Assessment/Plan 64 M with HFrEF 15%, afib on Eliquis, recurrent PLEF, morbid obesity with prolonged ICU and medsurge admission. 10/29- covering patient for today for primary. Patient has been here for almost 1 month. Multiple comorbidities. Severe depressed systolic function 15% with global hypokinesis.. Patient also have CKD, protein urea,. Hyponatremia likely from volume overload. Nephrology following closely, appreciate recommendations. Patient is being started on Diamox because of significant alkalosis has been present for last 3 or 4 days. The diuresis was stopped due to this reason. Patient remains edematous. Patient may have contaminant kidney disease causing possible nephrotic syndrome?. Patient has AFib and needs anticoagulation. Start Eliquis, keep patient on tele. Agree with Nephrology plan. 11/07 - Dr Merida: seen today during rounds. switch dean as its more than 30 days. xray not changed much. will check lung US to see if needed to be drained. 11/08 - patient continues to have lower extremity edema, decreased breath sounds on left lung. Appears that patient has now gotten LifeVest. He still has contraction alkalosis? . Diamox was discontinued yesterday. Nephrology following. Continuing p.o. Bumex. Hyponatremia continues, chloride continues to fall. Kidney levels stable around low 2.1. CBC stable. Today patient was too weak to work with PT. Stays in bed. RN raising concern for possible sacral pressure ulcer. Currently patient is on midodrine, Eliquis, Bumex, Protonix, daily potassium. 11/09- patient at his baseline volume status. We on discharge plan ready with Nephrology. 2 mg Bumex b.i.d., with metolazone p.o. daily. Today remove Dean and try bedside urination. Patient can move to bedside commode for bowel movement only with assistance. Also we will get room air ABG to see qualification for home oxygen. We will start discharge planning. Assessment and plan Acute CHF exacerbation with systolic dysfunction Heart failure with reduced ejection fraction 15% Pericardial effusion not in tamponade Recurrent pleural effusion s/p throacentesis AFib with RVR , currently rate controlled Acute kidney injury 2/2 VMN now CKD 3b History of alcoholism Morbid obesity class I OHS/JEN with chronic CO2 retention Hypotension on midodrine Pericardial effusion Persistent hypokalemia dc diamox switch to bumex aim for -500 daily failed conversion to po, will reattempt on a later date amio for rate control potassium replacement scheduled, daily chem while on diuresis midodrine s/p dobu and dopa lifevest bedside c/w Eliquis and asa pt protonix diet mech soft dvt ppx on eliquis Plan discussed with: Patient My Orders Orders - DESMOND MOODY MD Procedure Category Date Status Time Discontinue Dean RAJAT 11/09/24 In Process Catheter 14:41 Abg W/ Co-Ox RT 11/09/24 Logged 14:57 Date of Service: Nov 09, 2024 Billing Provider: DESMOND MOODY MD Common Visit Codes: [id number] INP/OBS CARE(HIGH) DESMOND MOODY MD Nov 09, 2024 17:56
--- NOTE | 2024-11-09 20:34 | DVHPN2 ---
Progress Note Date Seen: Nov 09, 2024 Medical Necessity Reason Pt with a Central, PICC or Fol: Yes The following are medically ne: Dean Catheter Reason for dean catheter: Bladder Retention/Obstruc, Strict I&O Subjective Patient reports: No new complaints Review of Systems: Deferred Objective vital signs Vital Sign Date Time Temp Pulse Resp B/P (MAP) Pulse Ox O2 Delivery O2 Flow Rate FiO2 11/09/24 17:00 98.3 80 17 94/68 (77) 97 98.3 11/09/24 08:00 Nasal Cannula* 3 32 Total Intake and Output 11/08/24 11/08/24 11/09/24 15:00 23:00 07:00 Intake Total 2425 ml 620 ml Output Total 1200 ml Balance 2425 ml -580 ml medications Current Medications Medications Dose Ordered Sig/Nadia Route Start Time Stop Time Status Last Admin Dose Admin Vancomycin HCl 250 ml @ 200 mls/hr Q12H IV 10/08/24 14:00 UNV Midodrine 10 mg TID@0600,1200,1800 PO 10/13/24 12:00 11/09/24 16:53 10 MG Acetaminophen 650 mg Q6HP PRN PO 10/15/24 16:45 11/08/24 21:52 650 MG Enteral Nutritional Formula 240 ml BIDWM PO 10/23/24 18:00 11/09/24 16:54 240 ML Pantoprazole Sodium 40 mg DAILY@0600 PO 10/26/24 06:00 11/09/24 05:35 40 MG Apixaban 5 mg BID PO 10/29/24 22:00 11/09/24 09:19 5 MG Potassium Chloride 40 meq BID PO 11/03/24 22:00 11/09/24 09:19 40 MEQ Diphenhydramine HCl 50 mg QHSP PRN IV 11/03/24 16:30 Bumetanide 1 mg BIDD PO 11/08/24 18:00 11/09/24 16:53 1 MG Examination: GENERAL:Abnormal, LUNGS:Abnormal, MSK:Abnormal, NEURO:Normal laboratory and microbiology Laboratory Tests 11/09/24 06:04 11/08/24 06:13 Test 11/09/24 06:04 Range/Units Serum Glucose 132 H 74-106 mg/dL Microbiology Date/Time Source Procedure Growth Status 10/23/24 11:25 Pleural Fluid Gram Stain - Final Complete 10/23/24 11:25 Pleural Fluid Aerobic Culture - Final Complete 10/06/24 12:31 Nose MRSA Screen - Final Complete 10/05/24 19:19 Blood Blood Culture - Final NO GROWTH AFTER 5 DAYS OF INCUBATION. Complete Problem List/Assessment/Plan Problem List/Assessment/Plan Acute kidney injury due to hypotension/cardiorenal etiology ckd cr 1.1 on admission severe systolic HF EF 15%, large pleural effusions s/p thoracentesis pericardial effusion afib RVR Hyponatremia Hypokalemia Metabolic alkalosis secondary to diuretics Recommendations diamox today iv 250mg Bumex drip dc Transition to p.o. diuretics bumex 1mg po bid KCL replace as needed poor prognosis Plan discussed with: Patient, Other Dietary Evaluation Review Comments: 1. Refer to CDE on DC for weight management 2. Continue current plan of care Expected Outcomes/Goals: To meet >75% estimated needs Fu 3-5 days DINA FORBES MD Nov 09, 2024 20:34
[2024-11-09] MEDS: DIGOXIN 0.125 MG TAB PO ONE (21:24)
[2024-11-09] MEDS: AMIODARONE 360mg/200mL PREMIX 200 ML IV ONE ×2 (23:01→23:30)
[2024-11-09] MEDS: AMIODARONE BOLUS KIT 100 ML IV ONE ×2 (23:01→23:20)
--- NOTE | 2024-11-09 23:07 | ECG ---
[facility] Test Date: 2024-11-09 Test Time: 23:04:19 Pat Name: REYMUNDO WILDE Department: Respiratoy Room: [address] [place] [address] Gender: M Ambulance Attendant: : 1960 Requested By: DESMOND WILL Order Number: [id number] Reading MD: Mahin Gracia Measurements Intervals Shirley Rate: 154 P: 0 SD: 0 QRS: 5 QRSD: 90 T: 173 QT: 271 QTc: 434 Interpretive Statements Atrial fibrillation Low voltage, extremity and precordial leads Anteroseptal infarct, old Repolarization abnormality, prob rate related Electronically Signed On 11-12-2024 13:24:41 PDT by Mahin Gracia Please click the below link to view image of tracing.
--- NOTE | 2024-11-09 23:18 | DVHPN2 ---
Progress Note - Dictate Date Seen: Nov 09, 2024 Medical Necessity Reason Pt with a Central, PICC or Fol: Yes The following are medically ne: Dean Catheter Reason for dean catheter: Bladder Retention/Obstruc, Strict I&O Subjective Patient was seen and evaluated in follow up. Patient is on 3 LPM NC with humidifier. Patient complains of some general weakness and lower extremity edema. BLE edema is still significant despite completing diuresis. NA 125, CO2 37, BUN 66, [employer] 2.10. Telemetry reviewed. vital signs Vital Sign Date Time Temp Pulse Resp B/P (MAP) Pulse Ox O2 Delivery O2 Flow Rate FiO2 11/09/24 09:00 97.4 63 17 96/69 (78) 96 97.4 11/09/24 08:00 Nasal Cannula* 3 32 Total Intake and Output 11/08/24 11/08/24 11/09/24 15:00 23:00 07:00 Intake Total 2425 ml 620 ml Output Total 1200 ml Balance 2425 ml -580 ml medications Current Medications Medications Dose Ordered Sig/Nadia Route Start Time Stop Time Status Last Admin Dose Admin Vancomycin HCl 250 ml @ 200 mls/hr Q12H IV 10/08/24 14:00 UNV Midodrine 10 mg TID@0600,1200,1800 PO 10/13/24 12:00 11/09/24 10:59 10 MG Acetaminophen 650 mg Q6HP PRN PO 10/15/24 16:45 11/08/24 21:52 650 MG Enteral Nutritional Formula 240 ml BIDWM PO 10/23/24 18:00 11/09/24 08:00 240 ML Pantoprazole Sodium 40 mg DAILY@0600 PO 10/26/24 06:00 11/09/24 05:35 40 MG Apixaban 5 mg BID PO 10/29/24 22:00 11/09/24 09:19 5 MG Potassium Chloride 40 meq BID PO 11/03/24 22:00 11/09/24 09:19 40 MEQ Diphenhydramine HCl 50 mg QHSP PRN IV 11/03/24 16:30 Bumetanide 1 mg BIDD PO 11/08/24 18:00 11/09/24 05:35 1 MG objective GENERAL: Alert and oriented x 3. No acute distress. Morbidly obese. EYES: PERRL, EOMI. Anicteric. HENT: Moist mucous membranes. LUNGS: Diminished breath sounds. CARDIOVASCULAR: Irregular rate and rhythm. ABDOMEN: Soft, nontender and nondistended. EXTREMITIES: +3 pitting edema. NEUROLOGIC: No focal neurological deficits. SKIN: Warm, dry. laboratory and microbiology Laboratory Tests 11/09/24 06:04 11/08/24 06:13 Test 11/09/24 06:04 Range/Units Serum Glucose 132 H 74-106 mg/dL Problem List Atrial fibrillation with rapid ventricular response, newly diagnosed. Left pleural effusion. Sepsis. Hyperkalemia. Acute kidney injury. Transaminitis. Prediabetes. History of alcoholism. Morbidly obese. Severe systolic HF EF 15%, large pleural effusions. Pericardial effusion. Assessment/Plan Continued all current supportive medical care. Tylenol for pain management . Eliquis. Midodrine. GI prophylactics. Diuretics with Bumex. Additional plan as per the hospital course. Dietary Evaluation Review Comments: 1. Refer to CDE on DC for weight management 2. Continue current plan of care Expected Outcomes/Goals: To meet >75% estimated needs Fu 3-5 days Plan discussed with: Patient XIOMY JERONIMO MD Nov 09, 2024 11:52
[2024-11-09] MEDS: NOREPINEPHRINE 8 MG/250ML KIT 250 ML IV SCH (23:20)
[2024-11-10] VITALS (98 sets, daily range): BP systolic 83–111; BP diastolic 44–81; PULSE 86–147; RESP 11–33; TEMP 97.5–98.1; O2SAT 91–99
[2024-11-10 00:53] LABS: Hematocrit 50.4 % (41.0-53.0); Hemoglobin 16.7 g/dL (13.5-17.5); Mean Corpuscular Hemoglobin 30.6 pg (28.0-32.0); Mean Corpuscular Volume 92.4 fL (80.0-100.0); Nucleated Red Blood Cells % 0.0 %
[2024-11-10 02:02] LABS: Alanine Aminotransferase 34 U/L (7-40); Albumin 4.4 g/dL (3.2-4.8); Alkaline Phosphatase 109 U/L (46-116); Anion Gap 11 (5-15); BUN/Creatinine Ratio 25.5 (10.0-20.0); Calcium 10.3 mg/dL (8.7-10.4); Carbon Dioxide 29 mmol/L (20-31); Potassium 4.6 mmol/L (3.5-5.1); Total Protein 6.8 g/dL (5.7-8.2)
[2024-11-10 02:03] LABS: Bilirubin, Total 1.4 mg/dL (0.2-1.0); Blood Urea Nitrogen 56 mg/dL (9-23); Chloride 78 mmol/L (98-107); Glucose 189 mg/dL (74-106); Sodium 118 mmol/L (136-145)
[2024-11-10 03:22] LABS: Urine Protein, UAD Negative (Negative)
[2024-11-10] MEDS: FUROSEMIDE INJECTION 10 ML ONE (03:58)
[2024-11-10] MEDS: FUROSEMIDE INJECTION 100 MG in SODIUM CHL 0.9% 100 ML IV SCH (04:03)
--- NOTE | 2024-11-10 05:30 | DVHNC2 ---
Central Line Recorder of insertion practice: Operating Room Scheduler Occupation of bumper operator: Name of bumper operator (Dr sandoval) Indication: Volume resuscitation Room prepared for procedure: Yes Operating Room Scheduler performed hand hygien: Yes Maximal sterile barrier precau: Mask/Eye shield, Sterile gown Skin Preparation: Chlorhexidine gluconate, Providine iodine Skin preparation completely dr: Yes Insertion site: Right, Internal jugular Central line catheter type: Ayb-[id number]-htd dialysis Number of lumens: 3 Central line exchanged over a: No Antiseptic ointment applied to: No Post Assessment: Chest X-Ray, Proper placement, No Pneumothorax Informed consent obtained: Yes Risks/benefits/alt described: Yes Notes The patient was lying in the Trendelenburg position with head turned 30 degrees away from the insertion site. The skin was thoroughly sponged with chlorhexidine and allowed to dry. All persons involved were shielded with hair nets, face masks and sterile gowns. With sterile-gloved hands the right neck area was draped with the large disposable sterile field provided in the pre-manufactured kit. The skin and subcutaneous tissues superficial to the RIGHT internal jugular vein were anesthetized with 2 mL of 1% lidocaine. The RIGHT internal jugular vein was identified on ultrasound from the angle of the mandible down into the supraclavicular fossa using the linear ultrasound probe in the transverse orientation. The carotid artery was identified and avoided utilizing color-flow. The internal jugular vein was then placed in the center of the ultrasound field and compressed for patency. A movement artifact was identified as the needle was advanced through the skin and advanced toward the vessel. A real time hyperechoic signal revealed visualization of vascular needle entry into the lumen as blood was noted to flashback in the syringe. The needle was then held in place while the guide wire was advanced. The needle was then removed. Direct visualization of guide wire location within the vein was noted on ultrasound indicating proper placement and was document in the electronic medical record chart. A skin dilator was advanced over the guidewire and removed, and the triple-lumen catheter was then advanced over the guide wire into proper position. The guide wire was removed and discarded. The ports were aspirated which showed good blood return and then carefully flushed with normal saline. The catheter was stabilized and sutured to the skin with 2-0 silk at 2 anchor points. A sterile bio-patch and dressing was placed over the catheter, including the insertion site. The patient tolerated the procedure well. A chest x-ray was ordered for position confirmation. Post-procedure chest x-ray : no pneumothorax, tip at SVC. Date of Service: Nov 10, 2024 Billing Provider: CONCEPCION MARTINEZ MD Common Visit Codes: PROCEDURE ONLY Procedure Codes: [id number] NON-TUNNEL CV CATH NICOLE SANDOVAL Nov 10, 2024 05:30
[2024-11-10] MEDS: SODIUM CHL 3% 500 ML IV ONE (05:35)
--- NOTE | 2024-11-10 05:44 | DVH ---
CHEST RADIOGRAPH Indication: CENTRAL LINE PLAEMENT Technique: Single frontal view of the chest was obtained COMPARISON: XY CHEST XRAY 1 VIEW on DOS: 11/07/24, XY CHEST XRAY 1 VIEW on DOS: 11/03/24, XY CHEST XRAY 1 VIEW on DOS: 10/29/24, XY CHEST XRAY 1 VIEW on DOS: 10/27/24, XY CHEST PORTABLE on DOS: 10/23/24 FINDINGS: Lines and Tubes: New right internal jugular central venous catheter tip projects over the expected lo cation of the distal superior vena cava. Lungs: Moderate interval progression in diffuse multifocal bilateral pulmonary airspace disease with grossly stable appearing moderate left and small right pleural effusions. No pneumothorax. Cardiomediastinal contours: Cardiomegaly. Bones: Unremarkable IMPRESSION: 1. Progressive bilateral multifocal pulmonary airspace disease with otherwise stable appearing bilate ral pleural effusions, [id number]-[id number]-heof-[id number]. 2. Cardiomegaly. 3. New right internal jugular central venous catheter.
[2024-11-10] MEDS: AMIODARONE 360mg/200mL PREMIX 200 ML IV SCH (06:11)
--- NOTE | 2024-11-10 09:23 | DVHPN2 ---
Subjective Patient still some shortness of breath, lower extremity edema still significant despite complete diuresis. Patient complains of ongoing weakness and leg swelling being bothersome. Reviewed: Care Plan, H&P, Labs, Medications, Radiology Changes from previous H/P or p: No Changes General: Per HPI Eyes: No Pain, No Vision change, No Conjunctivae inflammation, No Eyelid inflammation, No Other, No Redness ENT: No Ear pain, No Ear discharge, No Nose pain, No Nose discharge, No Nose congestion, No Mouth pain, No Mouth swelling, No Throat pain, No Throat swelling, No Other Cardiovascular: Palpitations Respiratory: Shortness of breath Gastrointestinal: No Nausea, No Vomiting, No Abdominal Pain, No Diarrhea, No Constipation, No Melena, No Hematochezia, No Other Genitourinary: No Dysuria, No Frequency, No Incontinence, No Hematuria, No Retention, No Other Musculoskeletal: No other, No neck pain, No shoulder pain, No arm pain, No back pain, No hand pain, No leg pain, No foot pain Skin: No Rash, No Lesions, No Jaundice, No Bruising, No Other Objective Vitals Vital Signs Date Time Temp Pulse Resp B/P (MAP) Pulse Ox O2 Delivery O2 Flow Rate FiO2 11/10/24 08:00 118 11/10/24 08:00 31 97 Nasal Cannula* 2 28 11/10/24 06:30 99/73 (82) 11/10/24 04:00 98.1 98.1 Intake/Output Intake and Output 11/10/24 07:00 Intake Total 1564.48 ml Output Total 300 ml Balance 1264.48 ml Intake Oral 1150 ml IV Total 414.48 ml Output Urine Total 300 ml # Bowel Movements 2 Exam GEN: Healthy appearing, well-developed, NAD. HEENT: NC/AT; MMM. CV: RRR, no m/r/g.. R IJ CVC LUNGS: Decreased air movement and rales in LL BL. ABD: Soft, NT/ND, NBS, no masses or organomegaly. EXT: skin Warm, well perfused. no rashes. Edema due to 1+ up to knees bilaterally. NEURO: Ambulating with no limitations. No focal deficits. General Appearance: Alert, Oriented X3, mild distress HEENT: Atraumatic, PERRLA, EOMI, Mucous membr. moist/pink Neck: Supple Lungs: Other Cardiovascular: Regular rate, Normal S1, Normal S2, No murmurs Abdomen: Normal bowel sounds, Soft, No tenderness Extremities: Other Neuro: Cranial nerves 3-12 NL Psych/Mental Status: Mental status NL Medications Current Medications Medications Dose Ordered Sig/Nadia Route Start Time Stop Time Status Last Admin Dose Admin Vancomycin HCl 250 ml @ 200 mls/hr Q12H IV 10/08/24 14:00 UNV Midodrine 10 mg TID@0600,1200,1800 PO 10/13/24 12:00 11/10/24 06:11 10 MG Acetaminophen 650 mg Q6HP PRN PO 10/15/24 16:45 11/08/24 21:52 650 MG Enteral Nutritional Formula 240 ml BIDWM PO 10/23/24 18:00 11/10/24 08:00 240 ML Pantoprazole Sodium 40 mg DAILY@0600 PO 10/26/24 06:00 11/10/24 06:11 40 MG Apixaban 5 mg BID PO 10/29/24 22:00 11/09/24 21:24 5 MG Potassium Chloride 40 meq BID PO 11/03/24 22:00 11/09/24 21:24 40 MEQ Diphenhydramine HCl 50 mg QHSP PRN IV 11/03/24 16:30 Norepinephrine Bitartrate 250 ml @ 3.75 mls/hr Q24H IV 11/10/24 00:00 11/09/24 23:20 3.75 MLS/HR Furosemide 100 mg/ Sodium Chloride 110 ml @ 5.5 mls/hr Q20H IV 11/10/24 03:00 11/10/24 04:03 5.5 MLS/HR Laboratory Results Laboratory Tests 11/10/24 00:47 Chemistry Test 11/10/24 00:47 11/10/24 09:00 Albumin 4.4 g/dL (3.2-4.8) Calcium Level 10.3 mg/dL (8.7-10.4) Pending Magnesium Level 3.1 mg/dL (1.6-2.6) H Total Protein 6.8 g/dL (5.7-8.2) Cardiac Markers Test 11/10/24 00:47 B-Type Natriuretic Peptide 204.00 pg/mL (0-100) LFT Test 11/10/24 00:47 Alanine Aminotransferase (ALT) 34 U/L (7-40) Alkaline Phosphatase 109 U/L (46-116) Aspartate Amino Transferase (AST) 64 U/L (13-40) H Total Bilirubin 1.4 mg/dL (0.2-1.0) H Urinalysis Test 10/05/24 18:45 10/31/24 10:00 11/10/24 00:25 Urine Mucus Few (None Seen) Urine Creatinine 49.93 mg/dL (30.0-125.0) Urine Protein/Creatinine Ratio 0.60 Urine Sodium 23 mmol/L (40-220) L Urine Potassium 91 mmol/L (12-62) H Urine Total Protein 29.8 mg/dL (1-14) H Urine Color Yellow (Yellow) Urine Clarity Clear (Clear) Urine pH 7.0 (5.0-9.0) Urine Specific [place] 1.014 (1.001-1.035) Urine Protein Negative (Negative) Urine Ketones Negative (Negative) Urine Blood 1+ /uL (Negative) H Urine Nitrite Negative (Negative) Urine Bilirubin Negative (Negative) Urine Urobilinogen 2 mg/dL (Negative) H Urine Leukocyte Esterase Negative /uL (Negative) Urine RBC 3 /hpf (0 - 3) Urine Microscopic WBC 2 /HPF (0-3) Urine Squamous Epithelial Cells Few /hpf (<5) Urine Bacteria None seen /hpf (None Seen) Urine Hyaline Casts Mod /lpf (0 - 2) Urine Glucose Normal mg/dL (Normal) Blood Gas Results Test 11/09/24 15:05 Arterial Blood pH 7.580 (7.350-7.450) FiO2 % 21.0 Microbiology Microbiology Date/Time Source Procedure Growth Status 10/23/24 11:25 Pleural Fluid Gram Stain - Final Complete 10/23/24 11:25 Pleural Fluid Aerobic Culture - Final Complete 10/06/24 12:31 Nose MRSA Screen - Final Complete 10/05/24 19:19 Blood Blood Culture - Final NO GROWTH AFTER 5 DAYS OF INCUBATION. Complete Labs and/or images reviewed: Labs reviewed by me, Image(s) reviewed by me Assessment/Plan Assessment/Plan 64 M with HFrEF 15%, afib on Eliquis, recurrent PLEF, morbid obesity with prolonged ICU and medsurge admission. 10/29- covering patient for today for primary. Patient has been here for almost 1 month. Multiple comorbidities. Severe depressed systolic function 15% with global hypokinesis.. Patient also have CKD, protein urea,. Hyponatremia likely from volume overload. Nephrology following closely, appreciate recommendations. Patient is being started on Diamox because of significant alkalosis has been present for last 3 or 4 days. The diuresis was stopped due to this reason. Patient remains edematous. Patient may have contaminant kidney disease causing possible nephrotic syndrome?. Patient has AFib and needs anticoagulation. Start Eliquis, keep patient on tele. Agree with Nephrology plan. 11/07 - Dr Merida: seen today during rounds. switch dean as its more than 30 days. xray not changed much. will check lung US to see if needed to be drained. 11/08 - patient continues to have lower extremity edema, decreased breath sounds on left lung. Appears that patient has now gotten LifeVest. He still has contraction alkalosis? . Diamox was discontinued yesterday. Nephrology following. Continuing p.o. Bumex. Hyponatremia continues, chloride continues to fall. Kidney levels stable around low 2.1. CBC stable. Today patient was too weak to work with PT. Stays in bed. RN raising concern for possible sacral pressure ulcer. Currently patient is on midodrine, Eliquis, Bumex, Protonix, daily potassium. 11/09- patient at his baseline volume status. We on discharge plan ready with Nephrology. 2 mg Bumex b.i.d., with metolazone p.o. daily. Today remove Dean and try bedside urination. Patient can move to bedside commode for bowel movement only with assistance. Also we will get room air ABG to see qualification for home oxygen. We will start discharge planning. 11/10 overnight there was a rapid response. Patient was found to be in AFib RVR. Repeat sodium was 118 down from 125. Amnio drip was started. 3% NS was started. Repeat BNP for sodium is pending. Nephrology aware of hyponatremia. Cardiology aware of AFib RVR. Currently patient is on Lasix drip at 5, amnio drip, levo for 3% NS 30. On exam patient has +1 pitting edema bilaterally which is much improved from his baseline. His lower lobes have rales. We will diurese until patient has creatinine bump. Vitals show heart rate low 100s. Assessment and plan Acute CHF exacerbation with systolic dysfunction Heart failure with reduced ejection fraction 15% Hypernatremia, due to hypervolemia CHF and contraction alkalosis contraction alkalosis due to diuresis Pericardial effusion not in tamponade Recurrent pleural effusion s/p throacentesis AFib with RVR , currently rate controlled Acute kidney injury 2/2 VMN now CKD 3b History of alcoholism Morbid obesity class I OHS/JEN with chronic CO2 retention Hypotension on midodrine Pericardial effusion Persistent hypokalemia Amiodarone drip Lasix drip Levophed (SP dobutamine, dopamine drips prior) Continue monitoring Holding off metolazone, holding off Diamox. 3% NS stopped Protonix Continuing with Eliquis and aspirin Life vest continue diet mech soft dvt ppx on eliquis ICU Full code Plan discussed with: Patient My Orders Orders - DESMOND MOODY MD Procedure Category Date Status Time Discontinue Dean RAJAT 11/09/24 In Process Catheter 14:41 Abg W/ Co-Ox RT 11/09/24 Logged 14:57 Mrsa Screen JOSY 11/09/24 In Process 23:59 * Wound Consult CONS 11/10/24 Transmitted 08:00 Date of Service: Nov 10, 2024 Billing Provider: DESMOND MOODY MD Common Visit Codes: 30989-MICNEUXZ CARE 30-74 MIN DESMOND MOODY MD Nov 10, 2024 09:23
[2024-11-10 09:41] LABS: Anion Gap 12 (5-15); Calcium 10.3 mg/dL (8.7-10.4); Potassium 4.1 mmol/L (3.5-5.1)
[2024-11-10 09:45] LABS: Carbon Dioxide 32 mmol/L (20-31); Chloride 80 mmol/L (98-107); Sodium 124 mmol/L (136-145)
[2024-11-10 09:46] LABS: BUN/Creatinine Ratio 31.3 (10.0-20.0)
[2024-11-10 09:49] LABS: Blood Urea Nitrogen 67 mg/dL (9-23); Glucose 175 mg/dL (74-106)
--- NOTE | 2024-11-10 12:10 | DVHPN2 ---
Progress Note Date Seen: Nov 10, 2024 Medical Necessity Reason Pt with a Central, PICC or Fol: Yes The following are medically ne: Dean Catheter Reason for dean catheter: Bladder Retention/Obstruc, Strict I&O Subjective Patient reports: Other (Events noted patient overnight developed AFib with RVR and hypotension and upgraded to ICU currently on amiodarone drip, given sodium drop he is on 3 percent saline, family bedside) Review of Systems: Deferred Objective vital signs Vital Sign Date Time Temp Pulse Resp B/P (MAP) Pulse Ox O2 Delivery O2 Flow Rate FiO2 11/10/24 09:30 99 17 95/74 (81) 98 11/10/24 08:00 97.9 97.9 11/10/24 08:00 Nasal Cannula* 2 28 Total Intake and Output 11/09/24 11/09/24 11/10/24 15:00 23:00 07:00 Intake Total 950 ml 614.48 ml Output Total 300 ml Balance 950 ml 314.48 ml medications Current Medications Medications Dose Ordered Sig/Nadia Route Start Time Stop Time Status Last Admin Dose Admin Vancomycin HCl 250 ml @ 200 mls/hr Q12H IV 10/08/24 14:00 UNV Midodrine 10 mg TID@0600,1200,1800 PO 10/13/24 12:00 11/10/24 06:11 10 MG Acetaminophen 650 mg Q6HP PRN PO 10/15/24 16:45 11/10/24 10:37 650 MG Enteral Nutritional Formula 240 ml BIDWM PO 10/23/24 18:00 11/10/24 08:00 240 ML Pantoprazole Sodium 40 mg DAILY@0600 PO 10/26/24 06:00 11/10/24 06:11 40 MG Apixaban 5 mg BID PO 10/29/24 22:00 11/10/24 09:55 5 MG Potassium Chloride 40 meq BID PO 11/03/24 22:00 11/10/24 09:55 40 MEQ Diphenhydramine HCl 50 mg QHSP PRN IV 11/03/24 16:30 Norepinephrine Bitartrate 250 ml @ 3.75 mls/hr Q24H IV 11/10/24 00:00 11/09/24 23:20 3.75 MLS/HR Furosemide 100 mg/ Sodium Chloride 110 ml @ 5.5 mls/hr Q20H IV 11/10/24 03:00 11/10/24 04:03 5.5 MLS/HR Examination: GENERAL:Abnormal, HEENT:Normal, LUNGS:Abnormal, MSK:Abnormal (Significant swelling), SKIN:Normal, NEURO:Normal laboratory and microbiology Laboratory Tests 11/10/24 09:00 11/10/24 00:47 Test 11/10/24 09:00 Range/Units Serum Glucose 175 H 74-106 mg/dL Microbiology Date/Time Source Procedure Growth Status 10/23/24 11:25 Pleural Fluid Gram Stain - Final Complete 10/23/24 11:25 Pleural Fluid Aerobic Culture - Final Complete 10/06/24 12:31 Nose MRSA Screen - Final Complete 10/05/24 19:19 Blood Blood Culture - Final NO GROWTH AFTER 5 DAYS OF INCUBATION. Complete Problem List/Assessment/Plan Problem List/Assessment/Plan Acute kidney injury due to hypotension/cardiorenal etiology ckd cr 1.1 on admission severe systolic HF EF 15%, large pleural effusions s/p thoracentesis AFib with RVR Shock likely cardiogenic pericardial effusion afib RVR Hyponatremia Hypokalemia Metabolic alkalosis secondary to diuretics Recommendations Currently he is on Lasix drip Sodium increase in six mEq from 118 to 124 DC 3 percent saline Currently nonoliguric Discussed with and daughter bedside Renal function slightly worse notified family poor prognosis Plan discussed with: Patient, Spouse, Daughter Dietary Evaluation Review Comments: 1. Refer to CDE on DC for weight management 2. Continue current plan of care Expected Outcomes/Goals: To meet >75% estimated needs Fu 3-5 days DINA FORBES MD Nov 10, 2024 12:10
[2024-11-10 14:50] LABS: Potassium 4.3 mmol/L (3.5-5.1)
[2024-11-10 14:51] LABS: Anion Gap 10 (5-15); Calcium 10.3 mg/dL (8.7-10.4)
[2024-11-10 14:56] LABS: Carbon Dioxide 33 mmol/L (20-31); Chloride 82 mmol/L (98-107); Glucose 190 mg/dL (74-106); Sodium 125 mmol/L (136-145)
[2024-11-10 16:31] LABS: BUN/Creatinine Ratio 35.8 (10.0-20.0)
[2024-11-10 16:48] LABS: Blood Urea Nitrogen 76 mg/dL (9-23)
--- NOTE | 2024-11-10 23:41 | DVHPN2 ---
Progress Note - Dictate Date Seen: Nov 10, 2024 Medical Necessity Reason Pt with a Central, PICC or Fol: Yes The following are medically ne: Dean Catheter Reason for dean catheter: Bladder Retention/Obstruc, Strict I&O Subjective Patient was seen and evaluated in follow up in the ICU. Overnight, the patient reported receiving multiple shocks from his Zoll life vest. Patient was found to be in A-fib RVR in the 150's-160's and hypotensive. RR was called and patient was upgraded to the ICU. Patient was started on amiodarone drip and 3 percent saline. Patient's family at bedside. He is on 2 LPM NC. WBC 13.8, NA 124, CO2 32, BUN 67, FREIGHT ENGINEER 2.14. Chest x-ray shows progressive bilateral multifocal pulmonary airspace disease with otherwise stable appearing bilateral pleural effusions, [id number], cardiomegaly, new right internal jugular central venous catheter. vital signs Vital Sign Date Time Temp Pulse Resp B/P (MAP) Pulse Ox O2 Delivery O2 Flow Rate FiO2 11/10/24 09:30 99 17 95/74 (81) 98 11/10/24 08:00 97.9 97.9 11/10/24 08:00 Nasal Cannula* 2 28 Total Intake and Output 11/09/24 11/09/24 11/10/24 15:00 23:00 07:00 Intake Total 950 ml 614.48 ml Output Total 300 ml Balance 950 ml 314.48 ml medications Current Medications Medications Dose Ordered Sig/Nadia Route Start Time Stop Time Status Last Admin Dose Admin Vancomycin HCl 250 ml @ 200 mls/hr Q12H IV 10/08/24 14:00 UNV Midodrine 10 mg TID@0600,1200,1800 PO 10/13/24 12:00 11/10/24 06:11 10 MG Acetaminophen 650 mg Q6HP PRN PO 10/15/24 16:45 11/10/24 10:37 650 MG Enteral Nutritional Formula 240 ml BIDWM PO 10/23/24 18:00 11/10/24 08:00 240 ML Pantoprazole Sodium 40 mg DAILY@0600 PO 10/26/24 06:00 11/10/24 06:11 40 MG Apixaban 5 mg BID PO 10/29/24 22:00 11/10/24 09:55 5 MG Potassium Chloride 40 meq BID PO 11/03/24 22:00 11/10/24 09:55 40 MEQ Diphenhydramine HCl 50 mg QHSP PRN IV 11/03/24 16:30 Norepinephrine Bitartrate 250 ml @ 3.75 mls/hr Q24H IV 11/10/24 00:00 11/09/24 23:20 3.75 MLS/HR Furosemide 100 mg/ Sodium Chloride 110 ml @ 5.5 mls/hr Q20H IV 11/10/24 03:00 11/10/24 04:03 5.5 MLS/HR objective GENERAL: Alert and oriented x 3. No acute distress. Morbidly obese. EYES: PERRL, EOMI. Anicteric. HENT: Moist mucous membranes. LUNGS: Diminished breath sounds. CARDIOVASCULAR: Irregular rate and rhythm. ABDOMEN: Soft, nontender and nondistended. EXTREMITIES: +3 pitting edema. NEUROLOGIC: No focal neurological deficits. SKIN: Warm, dry. laboratory and microbiology Laboratory Tests 11/10/24 09:00 11/10/24 00:47 Test 11/10/24 09:00 Range/Units Serum Glucose 175 H 74-106 mg/dL Problem List Atrial fibrillation with rapid ventricular response, newly diagnosed. Left pleural effusion. Sepsis. Hyperkalemia. Acute kidney injury. Transaminitis. Prediabetes. History of alcoholism. Morbidly obese. Severe systolic HF EF 15%, large pleural effusions. Pericardial effusion. Assessment/Plan Continued all current supportive medical care. IV Amiodarone. Tylenol for pain management . Eliquis. Midodrine. GI prophylactics. Diuretics with Lasix. Vasopressors for hemodynamic support. Additional plan as per the hospital course. Critical care time of 45 minutes provided to include time spent evaluation of patient at bedside, when appropriate patient/family education for diagnosis, treatment plan, review of pertinent medical information and discussion of care with specialty providers and PCP. Dietary Evaluation Review Comments: 1. Refer to CDE on DC for weight management 2. Continue current plan of care Expected Outcomes/Goals: To meet >75% estimated needs Fu 3-5 days Plan discussed with: Patient XIOMY JERONIMO MD Nov 10, 2024 12:43
[2024-11-11] VITALS (99 sets, daily range): BP systolic 85–115; BP diastolic 60–92; PULSE 92–122; RESP 12–29; TEMP 97.5–98.2; O2SAT 95–98
[2024-11-11 03:59] LABS: Hematocrit 48.6 % (41.0-53.0); Hemoglobin 16.4 g/dL (13.5-17.5); Mean Corpuscular Hemoglobin 30.7 pg (28.0-32.0); Mean Corpuscular Volume 90.8 fL (80.0-100.0); Nucleated Red Blood Cells % 0.1 %
[2024-11-11 04:12] LABS: Potassium 3.9 mmol/L (3.5-5.1)
[2024-11-11 04:13] LABS: Anion Gap 12 (5-15)
[2024-11-11 04:14] LABS: Calcium 10.4 mg/dL (8.7-10.4); Carbon Dioxide 36 mmol/L (20-31); Chloride 80 mmol/L (98-107); Sodium 128 mmol/L (136-145)
[2024-11-11 04:18] LABS: BUN/Creatinine Ratio 34.3 (10.0-20.0)
[2024-11-11 04:19] LABS: Blood Urea Nitrogen 68 mg/dL (9-23); Glucose 154 mg/dL (74-106); Magnesium 2.6 mg/dL (1.6-2.6)
--- NOTE | 2024-11-11 10:27 | DVHPN2 ---
Subjective Patient still some shortness of breath, lower extremity edema still significant despite complete diuresis. Patient complains of ongoing weakness and leg swelling being bothersome. Reviewed: Care Plan, H&P, Labs, Medications, Radiology Changes from previous H/P or p: No Changes General: Per HPI Eyes: No Pain, No Vision change, No Conjunctivae inflammation, No Eyelid inflammation, No Other, No Redness ENT: No Ear pain, No Ear discharge, No Nose pain, No Nose discharge, No Nose congestion, No Mouth pain, No Mouth swelling, No Throat pain, No Throat swelling, No Other Cardiovascular: Palpitations Respiratory: Shortness of breath Gastrointestinal: No Nausea, No Vomiting, No Abdominal Pain, No Diarrhea, No Constipation, No Melena, No Hematochezia, No Other Genitourinary: No Dysuria, No Frequency, No Incontinence, No Hematuria, No Retention, No Other Musculoskeletal: No other, No neck pain, No shoulder pain, No arm pain, No back pain, No hand pain, No leg pain, No foot pain Skin: No Rash, No Lesions, No Jaundice, No Bruising, No Other Objective Vitals Vital Signs Date Time Temp Pulse Resp B/P (MAP) Pulse Ox O2 Delivery O2 Flow Rate FiO2 11/11/24 09:00 94 25 88/68 (75) 96 11/11/24 08:00 Nasal Cannula* 2 28 11/11/24 08:00 97.9 97.9 Intake/Output Intake and Output 11/11/24 07:00 Intake Total 2029.090 ml Output Total 2250 ml Balance -220.910 ml Intake Oral 1171 ml IV Total 858.090 ml Output Urine Total 2250 ml Stool Total 0 ml # Bowel Movements 2 Exam GEN: Healthy appearing, well-developed, NAD. HEENT: NC/AT; MMM. CV: RRR, no m/r/g.. R IJ CVC LUNGS: Decreased air movement and rales in LL BL. ABD: Soft, NT/ND, NBS, no masses or organomegaly. EXT: skin Warm, well perfused. no rashes. Edema due to 1+ up to knees bilaterally. NEURO: Ambulating with no limitations. No focal deficits. General Appearance: Alert, Oriented X3, mild distress HEENT: Atraumatic, PERRLA, EOMI, Mucous membr. moist/pink Neck: Supple Lungs: Other Cardiovascular: Regular rate, Normal S1, Normal S2, No murmurs Abdomen: Normal bowel sounds, Soft, No tenderness Extremities: Other Neuro: Cranial nerves 3-12 NL Psych/Mental Status: Mental status NL Medications Current Medications Medications Dose Ordered Sig/Nadia Route Start Time Stop Time Status Last Admin Dose Admin Vancomycin HCl 250 ml @ 200 mls/hr Q12H IV 10/08/24 14:00 UNV Midodrine 10 mg TID@0600,1200,1800 PO 10/13/24 12:00 11/11/24 05:54 10 MG Acetaminophen 650 mg Q6HP PRN PO 10/15/24 16:45 11/10/24 10:37 650 MG Enteral Nutritional Formula 240 ml BIDWM PO 10/23/24 18:00 11/11/24 08:48 240 ML Pantoprazole Sodium 40 mg DAILY@0600 PO 10/26/24 06:00 11/11/24 05:54 40 MG Apixaban 5 mg BID PO 10/29/24 22:00 11/11/24 10:03 5 MG Potassium Chloride 40 meq BID PO 11/03/24 22:00 11/11/24 10:19 40 MEQ Diphenhydramine HCl 50 mg QHSP PRN IV 11/03/24 16:30 Norepinephrine Bitartrate 250 ml @ 3.75 mls/hr Q24H IV 11/10/24 00:00 11/10/24 22:00 9.375 MLS/HR Furosemide 100 mg/ Sodium Chloride 110 ml @ 5.5 mls/hr Q20H IV 11/10/24 03:00 11/10/24 20:27 5.5 MLS/HR Laboratory Results Laboratory Tests 11/11/24 03:38 Chemistry Test 11/10/24 14:25 11/11/24 03:38 Calcium Level 10.3 mg/dL (8.7-10.4) 10.4 mg/dL (8.7-10.4) Magnesium Level 2.6 mg/dL (1.6-2.6) Urinalysis Test 10/05/24 18:45 10/31/24 10:00 11/10/24 00:25 Urine Mucus Few (None Seen) Urine Creatinine 49.93 mg/dL (30.0-125.0) Urine Protein/Creatinine Ratio 0.60 Urine Sodium 23 mmol/L (40-220) L Urine Potassium 91 mmol/L (12-62) H Urine Total Protein 29.8 mg/dL (1-14) H Urine Color Yellow (Yellow) Urine Clarity Clear (Clear) Urine pH 7.0 (5.0-9.0) Urine Specific [place] 1.014 (1.001-1.035) Urine Protein Negative (Negative) Urine Ketones Negative (Negative) Urine Blood 1+ /uL (Negative) H Urine Nitrite Negative (Negative) Urine Bilirubin Negative (Negative) Urine Urobilinogen 2 mg/dL (Negative) H Urine Leukocyte Esterase Negative /uL (Negative) Urine RBC 3 /hpf (0 - 3) Urine Microscopic WBC 2 /HPF (0-3) Urine Squamous Epithelial Cells Few /hpf (<5) Urine Bacteria None seen /hpf (None Seen) Urine Hyaline Casts Mod /lpf (0 - 2) Urine Glucose Normal mg/dL (Normal) Microbiology Microbiology Date/Time Source Procedure Growth Status 11/09/24 23:59 Nose MRSA Screen - Final Complete 10/23/24 11:25 Pleural Fluid Gram Stain - Final Complete 10/23/24 11:25 Pleural Fluid Aerobic Culture - Final Complete 10/05/24 19:19 Blood Blood Culture - Final NO GROWTH AFTER 5 DAYS OF INCUBATION. Complete Labs and/or images reviewed: Labs reviewed by me, Image(s) reviewed by me Assessment/Plan Assessment/Plan 64 M with HFrEF 15%, afib on Eliquis, recurrent PLEF, morbid obesity with prolonged ICU and medsurge admission. 10/29- covering patient for today for primary. Patient has been here for almost 1 month. Multiple comorbidities. Severe depressed systolic function 15% with global hypokinesis.. Patient also have CKD, protein urea,. Hyponatremia likely from volume overload. Nephrology following closely, appreciate recommendations. Patient is being started on Diamox because of significant alkalosis has been present for last 3 or 4 days. The diuresis was stopped due to this reason. Patient remains edematous. Patient may have contaminant kidney disease causing possible nephrotic syndrome?. Patient has AFib and needs anticoagulation. Start Eliquis, keep patient on tele. Agree with Nephrology plan. 11/07 - Dr Merida: seen today during rounds. switch dean as its more than 30 days. xray not changed much. will check lung US to see if needed to be drained. 11/08 - patient continues to have lower extremity edema, decreased breath sounds on left lung. Appears that patient has now gotten LifeVest. He still has contraction alkalosis? . Diamox was discontinued yesterday. Nephrology following. Continuing p.o. Bumex. Hyponatremia continues, chloride continues to fall. Kidney levels stable around low 2.1. CBC stable. Today patient was too weak to work with PT. Stays in bed. RN raising concern for possible sacral pressure ulcer. Currently patient is on midodrine, Eliquis, Bumex, Protonix, daily potassium. 11/09- patient at his baseline volume status. We on discharge plan ready with Nephrology. 2 mg Bumex b.i.d., with metolazone p.o. daily. Today remove Dean and try bedside urination. Patient can move to bedside commode for bowel movement only with assistance. Also we will get room air ABG to see qualification for home oxygen. We will start discharge planning. 11/10 overnight there was a rapid response. Patient was found to be in AFib RVR. Repeat sodium was 118 down from 125. Amnio drip was started. 3% NS was started. Repeat BNP for sodium is pending. Nephrology aware of hyponatremia. Cardiology aware of AFib RVR. Currently patient is on Lasix drip at 5, amnio drip, levo for 3% NS 30. On exam patient has +1 pitting edema bilaterally which is much improved from his baseline. His lower lobes have rales. We will diurese until patient has creatinine bump. Vitals show heart rate low 100s. 11/11 I tried to get a right radial A-line to allow for more accurate blood pressure monitoring. We were not able to get right radial access. Trying to measure cardiac index to determine Levophed versus dobutamine. We will get ABG and CVP we will help of RT and RN, to be updated later. Otherwise continue present management. Urine output adequate still has pitting edema, still has rales. Using incentive spirometer. Levophed at 5, amnio drip, Lasix drip at 5. 3% NS was stopped. Cardiology recommending transfer but patient does not have insurance to allow that, recommending heart transplant eval. Nephrology following. update 1 - after VBG and ABG (appreciate RN and RT), calculations show CI 1.5 low, CO 3.5 low- patient is in cardiac shock. recommend cardiology consider dobutamine/milronone. update 2 - cardiology agrees with dobutamine. hernández start. wean off levophed. RN notified. concern for possible allergy to dobutamine? per RN. will try dobutamine, if allergy occurs will use PRN iv benadryl/solumedrol and instead will switch to milronone. Assessment and plan Acute CHF exacerbation with systolic dysfunction Heart failure with reduced ejection fraction 15% Hypernatremia, due to hypervolemia CHF and contraction alkalosis contraction alkalosis due to diuresis Pericardial effusion not in tamponade Recurrent pleural effusion s/p throacentesis AFib with RVR , currently rate controlled Acute kidney injury 2/2 VMN now CKD 3b History of alcoholism Morbid obesity class I OHS/JEN with chronic CO2 retention Hypotension on midodrine Pericardial effusion Persistent hypokalemia Amiodarone drip Lasix drip Levophed (SP dobutamine, dopamine drips prior) Continue monitoring Holding off metolazone, holding off Diamox. 3% NS stopped Protonix Continuing with Eliquis and aspirin Life vest continue diet mech soft dvt ppx on eliquis ICU Full code Plan discussed with: Patient Date of Service: Nov 11, 2024 Billing Provider: DESMOND MOODY MD Common Visit Codes: [id number] CARE 30-74 MIN DESMOND MOODY MD Nov 11, 2024 10:27
[2024-11-11 12:03] LABS: Base Excess 10.8 mmol/L (-2.0-3.0)
[2024-11-11] MEDS: Nepro With Carbsteady ButterPecan 8oz Carton PO SCH (18:00)
--- NOTE | 2024-11-11 19:51 | DVHPN2 ---
Progress Note Date Seen: Nov 11, 2024 Medical Necessity Reason Pt with a Central, PICC or Fol: Yes The following are medically ne: Dean Catheter Reason for dean catheter: Bladder Retention/Obstruc, Strict I&O Subjective Patient reports: No new complaints, Feels better Review of Systems: Deferred Objective vital signs Vital Sign Date Time Temp Pulse Resp B/P (MAP) Pulse Ox O2 Delivery O2 Flow Rate FiO2 11/11/24 19:15 109 17 96/72 (80) 97 11/11/24 18:00 Nasal Cannula* 2 28 11/11/24 12:00 98.1 98.1 Total Intake and Output 11/10/24 11/10/24 11/11/24 15:00 23:00 07:00 Intake Total 362.905 ml 1173.905 ml 492.280 ml Output Total 700 ml 1550 ml Balance 362.905 ml 473.905 ml -1057.720 ml medications Current Medications Medications Dose Ordered Sig/Nadia Route Start Time Stop Time Status Last Admin Dose Admin Vancomycin HCl 250 ml @ 200 mls/hr Q12H IV 10/08/24 14:00 UNV Midodrine 10 mg TID@0600,1200,1800 PO 10/13/24 12:00 11/11/24 18:38 10 MG Acetaminophen 650 mg Q6HP PRN PO 10/15/24 16:45 11/11/24 14:57 650 MG Pantoprazole Sodium 40 mg DAILY@0600 PO 10/26/24 06:00 11/11/24 05:54 40 MG Apixaban 5 mg BID PO 10/29/24 22:00 11/11/24 10:03 5 MG Potassium Chloride 40 meq BID PO 11/03/24 22:00 11/11/24 10:19 40 MEQ Diphenhydramine HCl 50 mg QHSP PRN IV 11/03/24 16:30 Norepinephrine Bitartrate 250 ml @ 3.75 mls/hr Q24H IV 11/10/24 00:00 11/10/24 22:00 9.375 MLS/HR Furosemide 100 mg/ Sodium Chloride 110 ml @ 5.5 mls/hr Q20H IV 11/10/24 03:00 11/11/24 15:12 5.5 MLS/HR Enteral Nutritional Formula 240 ml TIDWM PO 11/11/24 18:00 11/11/24 18:00 240 ML Dobutamine HCl/ Dextrose 250 ml @ 32.4 mls/hr Q7H43M IV 11/11/24 18:00 Examination: GENERAL:Normal, LUNGS:Abnormal, MSK:Abnormal, SKIN:Abnormal, NEURO:Normal laboratory and microbiology Laboratory Tests 11/11/24 03:38 Test 11/11/24 03:38 Range/Units Serum Glucose 154 H 74-106 mg/dL Microbiology Date/Time Source Procedure Growth Status 11/10/24 00:25 Urine - Dean Port Urine Culture - Preliminary Resulted 11/09/24 23:59 Nose MRSA Screen - Final Complete 10/23/24 11:25 Pleural Fluid Gram Stain - Final Complete 10/23/24 11:25 Pleural Fluid Aerobic Culture - Final Complete 10/05/24 19:19 Blood Blood Culture - Final NO GROWTH AFTER 5 DAYS OF INCUBATION. Complete Problem List/Assessment/Plan Problem List/Assessment/Plan Acute kidney injury due to hypotension/cardiorenal etiology ckd cr 1.1 on admission severe systolic HF EF 15%, large pleural effusions s/p thoracentesis AFib with RVR Shock likely cardiogenic pericardial effusion afib RVR Hyponatremia Hypokalemia Metabolic alkalosis secondary to diuretics Recommendations Currently he is on Lasix drip, Levophed Sodium slightly better Currently nonoliguric Discussed with and daughter bedside We will follow closely poor prognosis Plan discussed with: Patient, Spouse, Daughter Dietary Evaluation Review Comments: 1. Refer to CDE on DC for weight management 2. Continue current plan of care Expected Outcomes/Goals: To meet >75% estimated needs Fu 3-5 days DINA FORBES MD Nov 11, 2024 19:50
[2024-11-11] MEDS: DOBUTamine 1000MCG/ML 250 ML IV SCH (22:12)
--- NOTE | 2024-11-11 22:48 | DVHPN2 ---
Progress Note - Dictate Date Seen: Nov 11, 2024 Medical Necessity Reason Pt with a Central, PICC or Fol: Yes The following are medically ne: Dean Catheter Reason for dean catheter: Bladder Retention/Obstruc, Strict I&O Subjective Patient was seen and evaluated in follow up in the ICU. Patient is complaining of generalized discomfort. Patent is refusing repositioning due to being uncomfortable. 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 CM is working on HLOC transfer for heart transplant. vital signs Vital Sign Date Time Temp Pulse Resp B/P (MAP) Pulse Ox O2 Delivery O2 Flow Rate FiO2 11/11/24 11:45 105/66 11/11/24 11:45 103 12 96 11/11/24 10:00 Nasal Cannula* 2 28 11/11/24 08:00 97.9 97.9 Total Intake and Output 11/10/24 11/10/24 11/11/24 15:00 23:00 07:00 Intake Total 362.905 ml 1173.905 ml 492.280 ml Output Total 700 ml 1550 ml Balance 362.905 ml 473.905 ml -1057.720 ml medications Current Medications Medications Dose Ordered Sig/Nadia Route Start Time Stop Time Status Last Admin Dose Admin Vancomycin HCl 250 ml @ 200 mls/hr Q12H IV 10/08/24 14:00 UNV Midodrine 10 mg TID@0600,1200,1800 PO 10/13/24 12:00 11/11/24 12:12 10 MG Acetaminophen 650 mg Q6HP PRN PO 10/15/24 16:45 11/10/24 10:37 650 MG Enteral Nutritional Formula 240 ml BIDWM PO 10/23/24 18:00 11/11/24 08:48 240 ML Pantoprazole Sodium 40 mg DAILY@0600 PO 10/26/24 06:00 11/11/24 05:54 40 MG Apixaban 5 mg BID PO 10/29/24 22:00 11/11/24 10:03 5 MG Potassium Chloride 40 meq BID PO 11/03/24 22:00 11/11/24 10:19 40 MEQ Diphenhydramine HCl 50 mg QHSP PRN IV 11/03/24 16:30 Norepinephrine Bitartrate 250 ml @ 3.75 mls/hr Q24H IV 11/10/24 00:00 11/10/24 22:00 9.375 MLS/HR Furosemide 100 mg/ Sodium Chloride 110 ml @ 5.5 mls/hr Q20H IV 11/10/24 03:00 11/10/24 20:27 5.5 MLS/HR objective GENERAL: Alert and oriented x 3. No acute distress. Morbidly obese. EYES: PERRL, EOMI. Anicteric. HENT: Moist mucous membranes. LUNGS: Diminished breath sounds. CARDIOVASCULAR: Irregular rate and rhythm. ABDOMEN: Soft, nontender and nondistended. EXTREMITIES: +3 pitting edema. NEUROLOGIC: No focal neurological deficits. SKIN: Warm, dry. laboratory and microbiology Laboratory Tests 11/11/24 03:38 Test 11/11/24 03:38 Range/Units Serum Glucose 154 H 74-106 mg/dL Problem List Atrial fibrillation with rapid ventricular response, newly diagnosed. Left pleural effusion. Sepsis. Hyperkalemia. Acute kidney injury. Transaminitis. Prediabetes. History of alcoholism. Morbidly obese. Severe systolic HF EF 15%, large pleural effusions. Pericardial effusion. Assessment/Plan Continued all current supportive medical care. Eliquis. Midodrine. GI prophylactics. Additional plan as per the hospital course. Critical care time of 45 minutes provided to include time spent evaluation of patient at bedside, when appropriate patient/family education for diagnosis, treatment plan, review of pertinent medical information and discussion of care with specialty providers and PCP. Dietary Evaluation Review Comments: 1. Refer to CDE on DC for weight management 2. Continue current plan of care Expected Outcomes/Goals: To meet >75% estimated needs Fu 3-5 days Plan discussed with: Patient XIOMY JERONIMO MD Nov 11, 2024 13:05
[2024-11-12] VITALS (72 sets, daily range): BP systolic 87–112; BP diastolic 59–85; PULSE 91–124; RESP 12–30; TEMP 97.6–98.5; O2SAT 95–99
[2024-11-12] MEDS: POTASSIUM EFFERVESENT TAB 25 MEQ PO ONE ×2 (01:01→22:04)
[2024-11-12 04:01] LABS: Hematocrit 48.9 % (41.0-53.0); Hemoglobin 16.4 g/dL (13.5-17.5); Mean Corpuscular Hemoglobin 30.6 pg (28.0-32.0); Mean Corpuscular Volume 91.0 fL (80.0-100.0); Nucleated Red Blood Cells % 0.1 %
[2024-11-12 04:32] LABS: Alanine Aminotransferase 40 U/L (7-40); Albumin 4.1 g/dL (3.2-4.8); Alkaline Phosphatase 113 U/L (46-116); Anion Gap 9 (5-15); BUN/Creatinine Ratio 32.6 (10.0-20.0); Calcium 9.8 mg/dL (8.7-10.4); Magnesium 2.5 mg/dL (1.6-2.6); Potassium 4.4 mmol/L (3.5-5.1); Total Protein 6.2 g/dL (5.7-8.2)
[2024-11-12 04:40] LABS: Bilirubin, Total 1.5 mg/dL (0.2-1.0); Blood Urea Nitrogen 61 mg/dL (9-23); Carbon Dioxide 35 mmol/L (20-31); Chloride 79 mmol/L (98-107); Glucose 206 mg/dL (74-106); Sodium 123 mmol/L (136-145)
--- NOTE | 2024-11-12 07:30 | ECG ---
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
--- NOTE | 2024-11-12 09:51 | DVHPN2 ---
Progress Note Date Seen: Nov 12, 2024 Medical Necessity Reason Pt with a Central, PICC or Fol: Yes The following are medically ne: Dean Catheter Reason for dean catheter: Bladder Retention/Obstruc, Strict I&O Objective vital signs Vital Sign Date Time Temp Pulse Resp B/P (MAP) Pulse Ox O2 Delivery O2 Flow Rate FiO2 11/12/24 09:30 108 22 98/76 (83) 97 11/12/24 08:00 Nasal Cannula* 2 28 11/12/24 08:00 97.6 97.6 Total Intake and Output 11/11/24 11/11/24 11/12/24 15:00 23:00 07:00 Intake Total 732.280 ml 1292.805 ml 1130.205 ml Output Total 2201 ml 760 ml Balance 732.280 ml -908.195 ml 370.205 ml medications Current Medications Medications Dose Ordered Sig/Nadia Route Start Time Stop Time Status Last Admin Dose Admin Vancomycin HCl 250 ml @ 200 mls/hr Q12H IV 10/08/24 14:00 UNV Midodrine 10 mg TID@0600,1200,1800 PO 10/13/24 12:00 11/12/24 05:41 10 MG Acetaminophen 650 mg Q6HP PRN PO 10/15/24 16:45 11/11/24 22:12 650 MG Pantoprazole Sodium 40 mg DAILY@0600 PO 10/26/24 06:00 11/12/24 05:41 40 MG Apixaban 5 mg BID PO 10/29/24 22:00 11/11/24 22:12 5 MG Potassium Chloride 40 meq BID PO 11/03/24 22:00 11/11/24 10:19 40 MEQ Diphenhydramine HCl 50 mg QHSP PRN IV 11/03/24 16:30 Norepinephrine Bitartrate 250 ml @ 3.75 mls/hr Q24H IV 11/10/24 00:00 11/11/24 22:38 5.625 MLS/HR Furosemide 100 mg/ Sodium Chloride 110 ml @ 5.5 mls/hr Q20H IV 11/10/24 03:00 11/12/24 09:17 5.5 MLS/HR Enteral Nutritional Formula 240 ml TIDWM PO 11/11/24 18:00 11/12/24 08:00 240 ML Dobutamine HCl/ Dextrose 250 ml @ 32.4 mls/hr Q7H43M IV 11/11/24 18:00 11/11/24 22:12 32.4 MLS/HR Examination: GENERAL:Abnormal, CVS:Abnormal, SKIN:Abnormal laboratory and microbiology Laboratory Tests 11/12/24 03:10 Test 11/12/24 03:10 Range/Units Serum Glucose 206 H 74-106 mg/dL Microbiology Date/Time Source Procedure Growth Status 11/10/24 00:25 Urine - Dean Port Urine Culture - Preliminary Resulted 11/09/24 23:59 Nose MRSA Screen - Final Complete 10/23/24 11:25 Pleural Fluid Gram Stain - Final Complete 10/23/24 11:25 Pleural Fluid Aerobic Culture - Final Complete 10/05/24 19:19 Blood Blood Culture - Final NO GROWTH AFTER 5 DAYS OF INCUBATION. Complete Problem List/Assessment/Plan Problem List/Assessment/Plan 64 year old male w/ no previous medical followup admitted to hospital with sob diagnosed w/ new onset CHF EF 15% and transferred to ICU for Afib RVR Acute kidney injury due to hypotension/cardiorenal etiology ckd cr 1.1 on admission severe systolic HF EF 15% AFib with RVR Shock cardiogenic pericardial effusion afib RVR Hyponatremia Hypokalemia Currently he is on Lasix drip, dobutamine fluid restriction Sodium , potassium, Mg monitoring daily critically ill requires pressor support high risk for cardiac arrest cardiology Plan discussed with: Patient Dietary Evaluation Review Comments: 1. Refer to CDE on DC for weight management 2. Continue current plan of care Expected Outcomes/Goals: To meet >75% estimated needs Fu 3-5 days Critical Care Time (mins): 36 HUONG SHEPPARD MD Nov 12, 2024 09:51
[2024-11-12] MEDS: FUROSEMIDE INJECTION 100 MG in SODIUM CHL 0.9% 100 ML IV SCH (12:20)
--- NOTE | 2024-11-12 14:15 | DVHPN2 ---
Assessment/Plan Assessment/Plan progress note 64 M with HFrEF 15%, afib on Eliquis, recurrent PLEF, morbid obesity with prolonged ICU and medsurge admission. seen today during rounds. plan for HLOC eval for transplant. on levo and lasix drip. Physical exam morbidly obese aox4 JVD cannot be observed MMM PERLLA mild crackles s1 s2 irregular abdomen soft b/l LE edema Labs ekg imaging reviewed Assessment and plan Acute CHF exacerbation with systolic dysfunction Heart failure with reduced ejection fraction 15% Pericardial effusion not in tamponade Recurrent pleural effusion s/p throacentesis AFib with RVR , currently rate controlled Acute kidney injury 2/2 VMN now CKD 3b History of alcoholism Morbid obesity class I OHS/JEN with chronic CO2 retention Hypotension on midodrine Pericardial effusion Persistent hypokalemia dc diamox switch to bumex aim for -500 daily now on lasix drip failed conversion to po, will reattempt on a later date amio for rate control potassium replacement scheduled, daily chem while on diuresis midodrine s/p dobu and dopa lifevest bedside c/w Eliquis and asa pt protonix diet mech soft dvt ppx on eliquis full code poor prognosis crit care time 45 minutes Plan discussed with: Patient, Spouse Date of Service: Nov 12, 2024 Billing Provider: IDALMIS DIAZ MD Common Visit Codes: [id number] CARE 30-74 MIN IDALMIS DIAZ MD Nov 12, 2024 14:15
--- NOTE | 2024-11-12 23:36 | DVHPN2 ---
Progress Note - Dictate Date Seen: Nov 12, 2024 Medical Necessity Reason Pt with a Central, PICC or Fol: Yes The following are medically ne: Dean Catheter Reason for dean catheter: Bladder Retention/Obstruc, Strict I&O Subjective Patient was seen and evaluated in follow up in the ICU. Patient is on 2 LPM NC. Patient resting in bed. Pending transfer to [facility]. WBC 13.3, NA 123, CI2 35, BUN 61, Hide Selector 1.87. vital signs Vital Sign Date Time Temp Pulse Resp B/P (MAP) Pulse Ox O2 Delivery O2 Flow Rate FiO2 11/12/24 21:35 92/59 11/12/24 20:00 20 97 Nasal Cannula* 2 28 11/12/24 20:00 110 11/12/24 16:00 97.6 97.6 Total Intake and Output 11/11/24 11/11/24 11/12/24 15:00 23:00 07:00 Intake Total 732.280 ml 1292.805 ml 1130.205 ml Output Total 2201 ml 760 ml Balance 732.280 ml -908.195 ml 370.205 ml medications Current Medications Medications Dose Ordered Sig/Nadia Route Start Time Stop Time Status Last Admin Dose Admin Vancomycin HCl 250 ml @ 200 mls/hr Q12H IV 10/08/24 14:00 UNV Acetaminophen 650 mg Q6HP PRN PO 10/15/24 16:45 11/12/24 19:31 650 MG Pantoprazole Sodium 40 mg DAILY@0600 PO 10/26/24 06:00 11/12/24 05:41 40 MG Apixaban 5 mg BID PO 10/29/24 22:00 11/12/24 21:35 5 MG Potassium Chloride 40 meq BID PO 11/03/24 22:00 11/11/24 10:19 40 MEQ Diphenhydramine HCl 50 mg QHSP PRN IV 11/03/24 16:30 Norepinephrine Bitartrate 250 ml @ 3.75 mls/hr Q24H IV 11/10/24 00:00 11/12/24 21:35 7.5 MLS/HR Enteral Nutritional Formula 240 ml TIDWM PO 11/11/24 18:00 11/12/24 18:10 240 ML Dobutamine HCl/ Dextrose 250 ml @ 32.4 mls/hr Q7H43M IV 11/11/24 18:00 11/11/24 22:12 32.4 MLS/HR Furosemide 100 mg/ Sodium Chloride 110 ml @ 7.7 mls/hr [id number] IV 11/12/24 12:00 11/12/24 21:35 7.7 MLS/HR objective GENERAL: Alert and oriented x 3. No acute distress. Morbidly obese. EYES: PERRL, EOMI. Anicteric. HENT: Moist mucous membranes. LUNGS: Diminished breath sounds. CARDIOVASCULAR: Irregular rate and rhythm. ABDOMEN: Soft, nontender and nondistended. EXTREMITIES: +3 pitting edema. NEUROLOGIC: No focal neurological deficits. SKIN: Warm, dry. laboratory and microbiology Laboratory Tests 11/12/24 18:15 11/12/24 03:10 Test 11/12/24 03:10 Range/Units Serum Glucose 206 H 74-106 mg/dL Problem List Atrial fibrillation with rapid ventricular response, newly diagnosed. Left pleural effusion. Sepsis. Hyperkalemia. Acute kidney injury. Transaminitis. Prediabetes. History of alcoholism. Morbidly obese. Severe systolic HF EF 15%, large pleural effusions. Pericardial effusion. Assessment/Plan Continued all current supportive medical care. Eliquis. Midodrine. GI prophylactics. Additional plan as per the hospital course. Critical care time of 45 minutes provided to include time spent evaluation of patient at bedside, when appropriate patient/family education for diagnosis, treatment plan, review of pertinent medical information and discussion of care with specialty providers and PCP. Dietary Evaluation Review Comments: 1. Refer to CDE on DC for weight management 2. Continue current plan of care Expected Outcomes/Goals: To meet >75% estimated needs Fu 3-5 days Plan discussed with: Patient XIOMY JERONIMO MD Nov 12, 2024 23:36
[2024-11-13] VITALS (90 sets, daily range): BP systolic 85–120; BP diastolic 57–85; PULSE 91–116; RESP 13–30; TEMP 97.5–97.7; O2SAT 94–99
[2024-11-13 03:29] LABS: Potassium 4.1 mmol/L (3.5-5.1)
[2024-11-13 03:30] LABS: Anion Gap 9 (5-15); Calcium 9.6 mg/dL (8.7-10.4)
[2024-11-13 03:35] LABS: BUN/Creatinine Ratio 34.5 (10.0-20.0)
[2024-11-13 03:36] LABS: Magnesium 2.6 mg/dL (1.6-2.6)
[2024-11-13 03:37] LABS: Blood Urea Nitrogen 57 mg/dL (9-23); Carbon Dioxide 35 mmol/L (20-31); Chloride 79 mmol/L (98-107); Glucose 159 mg/dL (74-106); Sodium 123 mmol/L (136-145)
[2024-11-13 03:41] LABS: Hematocrit 47.9 % (41.0-53.0); Hemoglobin 16.4 g/dL (13.5-17.5); Mean Corpuscular Hemoglobin 31.1 pg (28.0-32.0); Mean Corpuscular Volume 91.0 fL (80.0-100.0); Nucleated Red Blood Cells % 0.1 %
[2024-11-13] MEDS: MIDODRINE HCL 10 MG TAB PO SCH (06:56)
--- NOTE | 2024-11-13 07:28 | ECG ---
[facility] Test Date: 2024-11-10 Test Time: 01:10:08 Pat Name: REYMUNDO WILDE Department: icu Room: [address] [place] [address] A Gender: M Rehabilitation Team Lead: james : 1960 Requested By: DESMOND WILL Order Number: [id number] Reading MD: Mahin Gracia Measurements Intervals [place] Rate: 135 P: 0 NE: 0 QRS: 7 QRSD: 90 T: 173 QT: 282 QTc: 423 Interpretive Statements Atrial fibrillation Low voltage, extremity and precordial leads Anteroseptal infarct, old Nonspecific repol abnormality, diffuse leads Electronically Signed On 11-15-2024 16:09:11 PDT by Mahin Gracia Please click the below link to view image of tracing.
--- NOTE | 2024-11-13 07:29 | ECG ---
[facility] Test Date: 2024-11-09 Test Time: 21:02:46 Pat Name: REYMUNDO WILDE Department: Respiratoy Room: [address] [place] [address] Gender: M Pharmaceutical Representative: john : 1960 Requested By: DESMOND WILL Order Number: [id number] Reading MD: Mahin Gracia Measurements Intervals [place] Rate: 141 P: 0 CA: 0 QRS: 1 QRSD: 90 T: 185 QT: 272 QTc: 417 Interpretive Statements Atrial fibrillation Low voltage, extremity and precordial leads Anteroseptal infarct, old Borderline repolarization abnormality Electronically Signed On 11-15-2024 16:09:05 PDT by Mahin Gracia Please click the below link to view image of tracing.
--- NOTE | 2024-11-13 09:38 | DVHPN2 ---
Progress Note Date Seen: Nov 13, 2024 Medical Necessity Reason Pt with a Central, PICC or Fol: Yes The following are medically ne: Dean Catheter Reason for dean catheter: Bladder Retention/Obstruc, Strict I&O Subjective Patient reports: No new complaints Objective vital signs Vital Sign Date Time Temp Pulse Resp B/P (MAP) Pulse Ox O2 Delivery O2 Flow Rate FiO2 11/13/24 08:45 111 21 102/82 (89) 96 11/13/24 08:00 Nasal Cannula* 2 28 11/13/24 08:00 97.5 97.5 Total Intake and Output 11/12/24 11/12/24 11/13/24 15:00 23:00 07:00 Intake Total 269.705 ml 1519.675 ml 691.770 ml Output Total 1126 ml 1000 ml Balance 269.705 ml 393.675 ml -308.230 ml medications Current Medications Medications Dose Ordered Sig/Nadia Route Start Time Stop Time Status Last Admin Dose Admin Vancomycin HCl 250 ml @ 200 mls/hr Q12H IV 10/08/24 14:00 UNV Acetaminophen 650 mg Q6HP PRN PO 10/15/24 16:45 11/13/24 06:59 650 MG Pantoprazole Sodium 40 mg DAILY@0600 PO 10/26/24 06:00 11/13/24 04:52 40 MG Apixaban 5 mg BID PO 10/29/24 22:00 11/12/24 21:35 5 MG Potassium Chloride 40 meq BID PO 11/03/24 22:00 11/11/24 10:19 40 MEQ Diphenhydramine HCl 50 mg QHSP PRN IV 11/03/24 16:30 Norepinephrine Bitartrate 250 ml @ 3.75 mls/hr Q24H IV 11/10/24 00:00 11/12/24 21:35 7.5 MLS/HR Enteral Nutritional Formula 240 ml TIDWM PO 11/11/24 18:00 11/13/24 08:00 240 ML Dobutamine HCl/ Dextrose 250 ml @ 32.4 mls/hr [id number] IV 11/11/24 18:00 11/11/24 22:12 32.4 MLS/HR Furosemide 100 mg/ Sodium Chloride 110 ml @ 7.7 mls/hr [id number] IV 11/12/24 12:00 11/13/24 06:13 7.7 MLS/HR Midodrine 10 mg TID@0600,1200,1800 PO 11/13/24 06:00 11/13/24 06:56 10 MG Examination: GENERAL:Abnormal, CVS:Abnormal laboratory and microbiology Laboratory Tests 11/13/24 02:54 Test 11/13/24 02:54 Range/Units Serum Glucose 159 H 74-106 mg/dL Microbiology Date/Time Source Procedure Growth Status 11/10/24 00:25 Urine - Dean Port Urine Culture - Final Complete 11/09/24 23:59 Nose MRSA Screen - Final Complete 10/23/24 11:25 Pleural Fluid Gram Stain - Final Complete 10/23/24 11:25 Pleural Fluid Aerobic Culture - Final Complete 10/05/24 19:19 Blood Blood Culture - Final NO GROWTH AFTER 5 DAYS OF INCUBATION. Complete Problem List/Assessment/Plan Problem List/Assessment/Plan 64 year old male w/ no previous medical followup admitted to hospital with sob diagnosed w/ new onset CHF EF 15% and transferred to ICU for Afib RVR Acute kidney injury due to hypotension/cardiorenal etiology ckd cr 1.1 on admission severe systolic HF EF 15% AFib with RVR Shock cardiogenic pericardial effusion afib RVR Hyponatremia Hypokalemia Currently he is on Lasix drip needs to restrict fluids more fluid restriction Sodium , potassium, Mg monitoring daily critically ill requires pressor support high risk for cardiac arrest cardiology Plan discussed with: Patient My Orders My Orders Orders - HUONG SHEPPARD MD Procedure Category Date Status Time Sodium Chl 0.9% PHA 11/12/24 In Process (So... W/Furosemide 12:00 Dietary Evaluation Review Comments: 1. Refer to CDE on DC for weight management 2. Continue current plan of care Expected Outcomes/Goals: To meet >75% estimated needs Fu 3-5 days HUONG SHEPPARD MD Nov 13, 2024 09:38
--- NOTE | 2024-11-13 10:46 | DVHPN2 ---
Assessment/Plan Assessment/Plan progress note 64 M with HFrEF 15%, afib on Eliquis, recurrent PLEF, morbid obesity with prolonged ICU and medsurge admission. seen today during rounds. [facility] accepted pending insurance. iso pressor recs, leukocytosis, will reintroduce iv abx coverage with cefepime. improving kidney function, adequate diuresis on drips. plan fr picc. Physical exam morbidly obese aox4 JVD cannot be observed MMM PERLLA mild crackles s1 s2 irregular abdomen soft b/l LE edema Labs ekg imaging reviewed Assessment and plan Acute CHF exacerbation with systolic dysfunction Heart failure with reduced ejection fraction 15% Pericardial effusion not in tamponade Recurrent pleural effusion s/p throacentesis AFib with RVR , currently rate controlled Acute kidney injury 2/2 VMN now CKD 3b History of alcoholism Morbid obesity class I OHS/JEN with chronic CO2 retention Hypotension on midodrine Pericardial effusion Persistent hypokalemia dc diamox switch to bumex aim for -500 daily now on lasix drip failed conversion to po, will reattempt on a later date amio for rate control potassium replacement scheduled, daily chem while on diuresis midodrine s/p dobu and dopa (ectopy, dcd) lifevest bedside c/w Eliquis and asa pt protonix restart abx coverage with cefepime diet mech soft dvt ppx on eliquis full code poor prognosis crit care time 40 minutes Plan discussed with: Patient My Orders Orders - IDALMIS DIAZ MD Procedure Category Date Status Time Midodrine Tablet PHA 11/13/24 In Process (Proamatine Tablet) 06:00 Date of Service: Nov 13, 2024 Billing Provider: IDALMIS DIAZ MD Common Visit Codes: [id number] CARE 30-74 MIN IDALMIS DIAZ MD Nov 13, 2024 10:46
[2024-11-13 11:56] LABS: INR 1.31 (0.9-1.15); Partial Thromboplastin Time 30.5 SEC (24.5-34.5); Prothrombin Time 13.5 sec (9.3-11.8)
[2024-11-13] MEDS: LIDOCAINE 1% (LOCAL ANESTH.) PF 5ml SDV ID ONE (15:50)
--- NOTE | 2024-11-13 19:11 | DVH ---
CHEST RADIOGRAPH Indication: PICC TIP VERIFICATION Technique: XY CHEST PORTABLE COMPARISON: None FINDINGS: Right PICC line tip projects over the SVC. Right IJ catheter tip projects over the SVC. The cardiac silhouette is enlarged. The lungs demonstrate bilateral patchy airspace opacities. The pu lmonary vasculature is prominent. Moderate to large left and moderate right pleural effusions. There is no pneumothorax. IMPRESSION: As above
[2024-11-13] MEDS: POTASSIUM EFFERVESENT TAB 25 MEQ PO SCH (22:00)
[2024-11-13] MEDS: SODIUM CHLOR 0.9% PF (SALINE LOCK) 10ML VIAL/SYR IV SCH (22:00)
[2024-11-13] MEDS: CEFEPIME 1GM/ 50ML 50 ML IV SCH (22:00)
[2024-11-13] MEDS: AMIODARONE HCL 200 MG TAB PO SCH (22:00)
--- NOTE | 2024-11-13 23:29 | DVHPN2 ---
Progress Note - Dictate Date Seen: Nov 13, 2024 Medical Necessity Reason Pt with a Central, PICC or Fol: Yes The following are medically ne: Dean Catheter Reason for dean catheter: Bladder Retention/Obstruc, Strict I&O Subjective Patient was seen and evaluated in follow up in the ICU. Patient on 2 LPM NC. Patient receiving vasopresors for hemodynamic support. WBC 13.3, NA 123, CO2 35, BUN 57, Numerical Analysis Group Manager 1.65. [facility] accepted patietn for transfer, pending insurance auth. vital signs Vital Sign Date Time Temp Pulse Resp B/P (MAP) Pulse Ox O2 Delivery O2 Flow Rate FiO2 11/13/24 18:30 101 20 108/76 (87) 95 11/13/24 18:00 Nasal Cannula* 2 28 11/13/24 12:00 97.6 97.6 Total Intake and Output 11/12/24 11/12/24 11/13/24 15:00 23:00 07:00 Intake Total 269.705 ml 1519.675 ml 691.770 ml Output Total 1126 ml 1000 ml Balance 269.705 ml 393.675 ml -308.230 ml medications Current Medications Medications Dose Ordered Sig/Nadia Route Start Time Stop Time Status Last Admin Dose Admin Vancomycin HCl 250 ml @ 200 mls/hr Q12H IV 10/08/24 14:00 UNV Acetaminophen 650 mg Q6HP PRN PO 10/15/24 16:45 11/13/24 06:59 650 MG Pantoprazole Sodium 40 mg DAILY@0600 PO 10/26/24 06:00 11/13/24 04:52 40 MG Apixaban 5 mg BID PO 10/29/24 22:00 11/13/24 10:12 5 MG Diphenhydramine HCl 50 mg QHSP PRN IV 11/03/24 16:30 Norepinephrine Bitartrate 250 ml @ 3.75 mls/hr Q24H IV 11/10/24 00:00 11/12/24 21:35 7.5 MLS/HR Enteral Nutritional Formula 240 ml TIDWM PO 11/11/24 18:00 11/13/24 08:00 240 ML Furosemide 100 mg/ Sodium Chloride 110 ml @ 7.7 mls/hr [id number] IV 11/12/24 12:00 11/13/24 18:04 7.7 MLS/HR Midodrine 10 mg TID@0600,1200,1800 PO 11/13/24 06:00 11/13/24 18:04 10 MG Potassium Bicarbonate 25 meq BID PO 11/13/24 22:00 Amiodarone HCl 200 mg Q12HR PO 11/13/24 22:00 Cefepime HCl 50 ml @ 12.5 mls/hr Q12HR IV 11/13/24 22:00 11/18/24 21:59 Sodium Chloride 10 ml QSHIFT@10,22 IV 11/13/24 22:00 objective GENERAL: Alert and oriented x 3. No acute distress. Morbidly obese. EYES: PERRL, EOMI. Anicteric. HENT: Moist mucous membranes. LUNGS: Diminished breath sounds. CARDIOVASCULAR: Irregular rate and rhythm. ABDOMEN: Soft, nontender and nondistended. EXTREMITIES: +3 pitting edema. NEUROLOGIC: No focal neurological deficits. SKIN: Warm, dry. laboratory and microbiology Laboratory Tests 11/13/24 02:54 Test 11/13/24 02:54 Range/Units Serum Glucose 159 H 74-106 mg/dL Problem List Atrial fibrillation with rapid ventricular response, newly diagnosed. Left pleural effusion. Sepsis. Hyperkalemia. Acute kidney injury. Transaminitis. Prediabetes. History of alcoholism. Morbidly obese. Severe systolic HF EF 15%, large pleural effusions. Pericardial effusion. Assessment/Plan Continued all current supportive medical care. Eliquis. Midodrine. GI prophylactics. Additional plan as per the hospital course. Critical care time of 45 minutes provided to include time spent evaluation of patient at bedside, when appropriate patient/family education for diagnosis, treatment plan, review of pertinent medical information and discussion of care with specialty providers and PCP. Dietary Evaluation Review Comments: 1. Refer to CDE on DC for weight management 2. Continue current plan of care Expected Outcomes/Goals: To meet >75% estimated needs Fu 3-5 days Plan discussed with: Patient XIOMY JERONIMO MD Nov 13, 2024 23:29
[2024-11-14] VITALS (90 sets, daily range): BP systolic 86–127; BP diastolic 52–88; PULSE 95–115; RESP 12–30; TEMP 96.6–98; O2SAT 93–98
[2024-11-14 04:03] LABS: Hematocrit 48.3 % (41.0-53.0); Hemoglobin 16.0 g/dL (13.5-17.5); Mean Corpuscular Hemoglobin 30.1 pg (28.0-32.0); Mean Corpuscular Volume 91.2 fL (80.0-100.0); Nucleated Red Blood Cells % 0.1 %
[2024-11-14 04:22] LABS: Alanine Aminotransferase 30 U/L (7-40); Albumin 3.8 g/dL (3.2-4.8); Alkaline Phosphatase 100 U/L (46-116); Anion Gap 8 (5-15); BUN/Creatinine Ratio 29.0 (10.0-20.0); Calcium 9.2 mg/dL (8.7-10.4); Magnesium 2.6 mg/dL (1.6-2.6); Potassium 4.1 mmol/L (3.5-5.1); Total Protein 6.2 g/dL (5.7-8.2)
[2024-11-14 04:27] LABS: Bilirubin, Total 1.3 mg/dL (0.2-1.0); Blood Urea Nitrogen 53 mg/dL (9-23); Carbon Dioxide 33 mmol/L (20-31); Chloride 80 mmol/L (98-107); Glucose 231 mg/dL (74-106); Sodium 121 mmol/L (136-145)
[2024-11-14] MEDS: FUROSEMIDE INJECTION 10 ML ONE (07:17)
--- NOTE | 2024-11-14 15:14 | DVHPN2 ---
Assessment/Plan Assessment/Plan progress note 64 M with HFrEF 15%, afib on Eliquis, recurrent PLEF, morbid obesity with prolonged ICU and medsurge admission. [facility] accepted pending insurance. iso pressor recs, leukocytosis, will reintroduce iv abx coverage with cefepime. improving kidney function, adequate diuresis on drips. seen today during rounds. +1L overnight. discussed with renal, will continue diuresis, increase lasix dose. off pressors. sdium low, patient non compliant with fluid restriction Physical exam morbidly obese aox4 JVD cannot be observed MMM PERLLA mild crackles s1 s2 irregular abdomen soft b/l LE edema Labs ekg imaging reviewed Assessment and plan Acute CHF exacerbation with systolic dysfunction Heart failure with reduced ejection fraction 15% Pericardial effusion not in tamponade Recurrent pleural effusion s/p throacentesis AFib with RVR , currently rate controlled Acute kidney injury 2/2 VMN now CKD 3b History of alcoholism Morbid obesity class I OHS/JEN with chronic CO2 retention Hypotension on midodrine Pericardial effusion Persistent hypokalemia dc diamox switch to bumex aim for -500 daily now on lasix drip failed conversion to po, will reattempt on a later date amio for rate control potassium replacement scheduled, daily chem while on diuresis midodrine s/p dobu and dopa (ectopy, dcd) lifevest bedside c/w Eliquis and asa pt protonix restart abx coverage with cefepime, no alergies noted diet mech soft dvt ppx on eliquis full code poor prognosis crit care time 35 minutes Plan discussed with: Patient My Orders Orders - IDALMIS DIAZ MD Procedure Category Date Status Time Change Dressing Prn [facility] 11/13/24 In Process 15:45 Sodium Chloride Lock PHA 11/13/24 In Process (Saline Lock Ns) 22:00 Do Not Use Picc For [facility] 11/13/24 In Process Blood Cult 15:45 May Draw Blood From [facility] 11/13/24 In Process Picc 15:45 Change Picc Dressing [facility] 11/13/24 In Process Q7 Days 15:45 Us Guided Vascular US 11/13/24 Logged Access 15:45 Ok To Use Picc [facility] 11/13/24 In Process 16:06 Chest Portable XY 11/13/24 Resulted 16:06 D/C Tlc [facility] 11/13/24 In Process 17:26 Osmolality Urine LAB 11/14/24 Logged 09:30 Sodium Chl 0.9% PHA 11/14/24 In Process (So... W/Furosemide 14:30 Date of Service: Nov 14, 2024 Billing Provider: IDALMIS DIAZ MD Common Visit Codes: [id number] CARE 30-74 MIN IDALMIS DIAZ MD Nov 14, 2024 15:14
--- NOTE | 2024-11-14 15:24 | DVHPN2 ---
Progress Note Date Seen: Nov 14, 2024 Medical Necessity Reason Pt with a Central, PICC or Fol: Yes The following are medically ne: Dean Catheter Reason for dean catheter: Bladder Retention/Obstruc, Strict I&O Subjective Patient reports: Feels better Objective vital signs Vital Sign Date Time Temp Pulse Resp B/P (MAP) Pulse Ox O2 Delivery O2 Flow Rate FiO2 11/14/24 14:45 106 22 105/63 (77) 94 11/14/24 13:41 Nasal Cannula* 2 28 11/14/24 12:30 96.6 96.6 Total Intake and Output 11/13/24 11/13/24 11/14/24 15:00 23:00 07:00 Intake Total 716.755 ml 859.880 ml 556.580 ml Output Total 1126 ml Balance 716.755 ml -266.120 ml 556.580 ml medications Current Medications Medications Dose Ordered Sig/Nadia Route Start Time Stop Time Status Last Admin Dose Admin Vancomycin HCl 250 ml @ 200 mls/hr Q12H IV 10/08/24 14:00 UNV Acetaminophen 650 mg Q6HP PRN PO 10/15/24 16:45 11/14/24 05:44 650 MG Pantoprazole Sodium 40 mg DAILY@0600 PO 10/26/24 06:00 11/14/24 05:44 40 MG Apixaban 5 mg BID PO 10/29/24 22:00 11/14/24 07:53 5 MG Diphenhydramine HCl 50 mg QHSP PRN IV 11/03/24 16:30 Norepinephrine Bitartrate 250 ml @ 3.75 mls/hr Q24H IV 11/10/24 00:00 11/14/24 00:00 5.625 MLS/HR Enteral Nutritional Formula 240 ml TIDWM PO 11/11/24 18:00 11/14/24 12:05 240 ML Midodrine 10 mg TID@0600,1200,1800 PO 11/13/24 06:00 11/14/24 12:08 10 MG Potassium Bicarbonate 25 meq BID PO 11/13/24 22:00 11/14/24 07:53 25 MEQ Amiodarone HCl 200 mg Q12HR PO 11/13/24 22:00 11/14/24 07:53 200 MG Cefepime HCl 50 ml @ 12.5 mls/hr Q12HR IV 11/13/24 22:00 11/18/24 21:59 11/14/24 07:53 12.5 MLS/HR Sodium Chloride 10 ml QSHIFT@10,22 IV 11/13/24 22:00 11/14/24 07:53 10 ML Furosemide 100 mg/ Sodium Chloride 110 ml @ 11 mls/hr Q10H IV 11/14/24 14:30 Examination: LUNGS:Abnormal, CVS:Abnormal, SKIN:Normal laboratory and microbiology Laboratory Tests 11/14/24 03:37 Test 11/14/24 03:37 Range/Units Serum Glucose 231 H 74-106 mg/dL Microbiology Date/Time Source Procedure Growth Status 11/10/24 00:25 Urine - Dean Port Urine Culture - Final Complete 11/09/24 23:59 Nose MRSA Screen - Final Complete 10/23/24 11:25 Pleural Fluid Gram Stain - Final Complete 10/23/24 11:25 Pleural Fluid Aerobic Culture - Final Complete 10/05/24 19:19 Blood Blood Culture - Final NO GROWTH AFTER 5 DAYS OF INCUBATION. Complete Problem List/Assessment/Plan Problem List/Assessment/Plan 64 year old male w/ no previous medical followup admitted to hospital with sob diagnosed w/ new onset CHF EF 15% and transferred to ICU for Afib RVR Acute kidney injury due to hypotension/cardiorenal etiology ckd cr 1.1 on admission severe systolic HF EF 15% AFib with RVR Shock cardiogenic pericardial effusion afib RVR Hyponatremia Hypokalemia Currently he is on Lasix drip increase to 10mg/hr needs to restrict fluids more, eat solids and reduce water fluid restriction Sodium , potassium, Mg monitoring daily high risk for cardiac arrest cardiology pending HLOC for impela after insurance approval Plan discussed with: Patient Dietary Evaluation Review Comments: 1. Refer to CDE on DC for weight management 2. Continue current plan of care Expected Outcomes/Goals: To meet >75% estimated needs Fu 3-5 days Critical Care Time (mins): 35 HUONG SHEPPARD MD Nov 14, 2024 15:24
[2024-11-14] MEDS: FUROSEMIDE INJECTION 100 MG in SODIUM CHL 0.9% 100 ML IV SCH (16:23)
--- NOTE | 2024-11-14 21:14 | DVHPN2 ---
Progress Note - Dictate Date Seen: Nov 14, 2024 Medical Necessity Reason Pt with a Central, PICC or Fol: Yes The following are medically ne: Dean Catheter Reason for dean catheter: Bladder Retention/Obstruc, Strict I&O Subjective Patient was seen and evaluated in follow up in the ICU. Overnight, the patient refused bed bath, repositioning/turning. Patient remains on 2 LPM NC. WBC 12.6, NA 121, CL 80, CO2 33, BUN 53, RENAL MEDICINE PHYSICIAN 1.83. Pending insurance auth for transfer to [facility]. vital signs Vital Sign Date Time Temp Pulse Resp B/P (MAP) Pulse Ox O2 Delivery O2 Flow Rate FiO2 11/14/24 12:00 111 11/14/24 12:00 15 99/63 (75) 94 11/14/24 12:00 Nasal Cannula* 2 28 11/14/24 08:00 96.6 96.6 Total Intake and Output 11/13/24 11/13/24 11/14/24 15:00 23:00 07:00 Intake Total 716.755 ml 859.880 ml 556.580 ml Output Total 1126 ml Balance 716.755 ml -266.120 ml 556.580 ml medications Current Medications Medications Dose Ordered Sig/Nadia Route Start Time Stop Time Status Last Admin Dose Admin Vancomycin HCl 250 ml @ 200 mls/hr Q12H IV 10/08/24 14:00 UNV Acetaminophen 650 mg Q6HP PRN PO 10/15/24 16:45 11/14/24 05:44 650 MG Pantoprazole Sodium 40 mg DAILY@0600 PO 10/26/24 06:00 11/14/24 05:44 40 MG Apixaban 5 mg BID PO 10/29/24 22:00 11/14/24 07:53 5 MG Diphenhydramine HCl 50 mg QHSP PRN IV 11/03/24 16:30 Norepinephrine Bitartrate 250 ml @ 3.75 mls/hr Q24H IV 11/10/24 00:00 11/14/24 00:00 5.625 MLS/HR Enteral Nutritional Formula 240 ml TIDWM PO 11/11/24 18:00 11/14/24 12:05 240 ML Furosemide 100 mg/ Sodium Chloride 110 ml @ 7.7 mls/hr [id number] IV 11/12/24 12:00 11/14/24 06:49 7.7 MLS/HR Midodrine 10 mg TID@0600,1200,1800 PO 11/13/24 06:00 11/14/24 12:08 10 MG Potassium Bicarbonate 25 meq BID PO 11/13/24 22:00 11/14/24 07:53 25 MEQ Amiodarone HCl 200 mg Q12HR PO 11/13/24 22:00 11/14/24 07:53 200 MG Cefepime HCl 50 ml @ 12.5 mls/hr Q12HR IV 11/13/24 22:00 11/18/24 21:59 11/14/24 07:53 12.5 MLS/HR Sodium Chloride 10 ml QSHIFT@10,22 IV 11/13/24 22:00 11/14/24 07:53 10 ML objective GENERAL: Alert and oriented x 3. No acute distress. Morbidly obese. EYES: PERRL, EOMI. Anicteric. HENT: Moist mucous membranes. LUNGS: Diminished breath sounds. CARDIOVASCULAR: Irregular rate and rhythm. ABDOMEN: Soft, nontender and nondistended. EXTREMITIES: +3 pitting edema. NEUROLOGIC: No focal neurological deficits. SKIN: Warm, dry. laboratory and microbiology Laboratory Tests 11/14/24 03:37 Test 11/14/24 03:37 Range/Units Serum Glucose 231 H 74-106 mg/dL Problem List Atrial fibrillation with rapid ventricular response, newly diagnosed. Left pleural effusion. Sepsis. Hyperkalemia. Acute kidney injury. Transaminitis. Prediabetes. History of alcoholism. Morbidly obese. Severe systolic HF EF 15%, large pleural effusions. Pericardial effusion. Assessment/Plan Continued all current supportive medical care. Eliquis. Midodrine. GI prophylactics. Diuretics with Lasix. IV antibiotics as ordered. Tylenol for pain management. Vasopressors for hemodynamic support. Additional plan as per the hospital course. Critical care time of 45 minutes provided to include time spent evaluation of patient at bedside, when appropriate patient/family education for diagnosis, treatment plan, review of pertinent medical information and discussion of care with specialty providers and PCP. Dietary Evaluation Review Comments: 1. Refer to CDE on DC for weight management 2. Continue current plan of care Expected Outcomes/Goals: To meet >75% estimated needs Fu 3-5 days Plan discussed with: Patient XIOMY JEROINMO MD Nov 14, 2024 12:43
[2024-11-15] VITALS (94 sets, daily range): BP systolic 91–135; BP diastolic 53–103; PULSE 96–116; RESP 13–33; TEMP 96.6–97.9; O2SAT 89–96
[2024-11-15 04:01] LABS: Hematocrit 49.0 % (41.0-53.0); Hemoglobin 16.1 g/dL (13.5-17.5); Mean Corpuscular Hemoglobin 30.0 pg (28.0-32.0); Mean Corpuscular Volume 91.4 fL (80.0-100.0); Nucleated Red Blood Cells % 0.1 %
[2024-11-15 04:12] LABS: Potassium 4.2 mmol/L (3.5-5.1)
[2024-11-15 04:13] LABS: Anion Gap 9 (5-15); Calcium 10.2 mg/dL (8.7-10.4)
[2024-11-15 04:18] LABS: BUN/Creatinine Ratio 31.7 (10.0-20.0)
[2024-11-15 04:23] LABS: Blood Urea Nitrogen 57 mg/dL (9-23); Carbon Dioxide 33 mmol/L (20-31); Chloride 81 mmol/L (98-107); Glucose 150 mg/dL (74-106); Magnesium 2.8 mg/dL (1.6-2.6); Sodium 123 mmol/L (136-145)
--- NOTE | 2024-11-15 05:46 | DVH ---
CHEST RADIOGRAPH Indication: resp failure Technique: Single frontal view of the chest was obtained Comparison: XY CHEST PORTABLE on DOS: 11/13/24 FINDINGS: Lines and Tubes: Right PICC is unchanged in position and the tip remains obscured. A right IJ access central venous catheter is not visualized. Lungs: Patchy bilateral airspace disease increased. Pleura: Bilateral pleural effusions, increased. No pneumothorax. Cardiomediastinal contours: Cardiomegaly. Bones: No acute osseous abnormality. IMPRESSION: 1. Worsening bilateral airspace disease and pleural effusions.
--- NOTE | 2024-11-15 13:06 | DVHPN2 ---
Assessment/Plan Assessment/Plan progress note 64 M with HFrEF 15%, afib on Eliquis, recurrent PLEF, morbid obesity with prolonged ICU and medsurge admission. [facility] accepted pending insurance. iso pressor recs, leukocytosis, will reintroduce iv abx coverage with cefepime. improving kidney function, adequate diuresis on drips. seen today during rounds. -300 cc. on lasix drip. slight metabolic alkalosis. c/w diuresis. pending HLOC transfer Physical exam obese aox4 JVD cannot be observed MMM PERLLA mild crackles s1 s2 irregular abdomen soft b/l LE edema Labs ekg imaging reviewed Assessment and plan Acute CHF exacerbation with systolic dysfunction Heart failure with reduced ejection fraction 15% Pericardial effusion not in tamponade Recurrent pleural effusion s/p throacentesis AFib with RVR , currently rate controlled Acute kidney injury 2/2 VMN now CKD 3b History of alcoholism Morbid obesity class I OHS/JEN with chronic CO2 retention Hypotension on midodrine Pericardial effusion Persistent hypokalemia dc diamox switch to bumex aim for -500 daily now on lasix drip failed conversion to po, will reattempt on a later date amio for rate control potassium replacement scheduled, daily chem while on diuresis midodrine s/p dobu and dopa (ectopy, dcd) lifevest bedside c/w Eliquis and asa pt protonix restart abx coverage with cefepime, no alergies noted diet mech soft dvt ppx on eliquis full code poor prognosis crit care time 35 minutes Plan discussed with: Patient My Orders Orders - IDALMIS DIAZ MD Procedure Category Date Status Time Sodium Chl 0.9% PHA 11/14/24 In Process (So... W/Furosemide 14:30 Chest Portable XY 11/15/24 Resulted 04:00 Venous Blood Gas RT 11/15/24 Logged 04:00 Basic Metabolic Panel LAB 11/16/24 Verified 04:00 Complete Blood Count LAB 11/16/24 Verified 04:00 Phosphorus LAB 11/16/24 Verified 04:00 Magnesium LAB 11/16/24 Verified 04:00 Date of Service: Nov 15, 2024 Billing Provider: IDALMIS DIAZ MD Common Visit Codes: [id number] CARE 30-74 MIN IDALMIS DIAZ MD Nov 15, 2024 13:06
--- NOTE | 2024-11-15 16:07 | DVHPN2 ---
Progress Note Date Seen: Nov 15, 2024 Medical Necessity Reason Pt with a Central, PICC or Fol: Yes The following are medically ne: Dean Catheter Reason for dean catheter: Bladder Retention/Obstruc, Strict I&O Subjective Patient reports: Feels better Objective vital signs Vital Sign Date Time Temp Pulse Resp B/P (MAP) Pulse Ox O2 Delivery O2 Flow Rate FiO2 11/15/24 15:43 114 11/15/24 15:43 16 94 Nasal Cannula* 2 28 11/15/24 15:30 96.6 114/87 (96) 96.6 Total Intake and Output 11/14/24 11/14/24 11/15/24 15:00 23:00 07:00 Intake Total 92.225 ml 1059.7 ml 513.0 ml Output Total 1001 ml 1050 ml Balance 92.225 ml 58.7 ml -537.0 ml medications Current Medications Medications Dose Ordered Sig/Nadia Route Start Time Stop Time Status Last Admin Dose Admin Vancomycin HCl 250 ml @ 200 mls/hr Q12H IV 10/08/24 14:00 UNV Pantoprazole Sodium 40 mg DAILY@0600 PO 10/26/24 06:00 11/15/24 06:05 40 MG Apixaban 5 mg BID PO 10/29/24 22:00 11/15/24 07:42 5 MG Diphenhydramine HCl 50 mg QHSP PRN IV 11/03/24 16:30 Norepinephrine Bitartrate 250 ml @ 3.75 mls/hr Q24H IV 11/10/24 00:00 11/14/24 00:00 5.625 MLS/HR Enteral Nutritional Formula 240 ml TIDWM PO 11/11/24 18:00 11/15/24 11:43 240 ML Midodrine 10 mg TID@0600,1200,1800 PO 11/13/24 06:00 11/15/24 11:52 10 MG Potassium Bicarbonate 25 meq BID PO 11/13/24 22:00 11/15/24 07:42 25 MEQ Amiodarone HCl 200 mg Q12HR PO 11/13/24 22:00 11/15/24 07:42 200 MG Cefepime HCl 50 ml @ 12.5 mls/hr Q12HR IV 11/13/24 22:00 11/18/24 21:59 11/15/24 07:42 12.5 MLS/HR Sodium Chloride 10 ml QSHIFT@10,22 IV 11/13/24 22:00 11/15/24 07:42 10 ML Furosemide 100 mg/ Sodium Chloride 110 ml @ 11 mls/hr Q10H IV 11/14/24 14:30 11/15/24 10:18 11 MLS/HR Examination: GENERAL:Normal, LUNGS:Abnormal, CVS:Abnormal laboratory and microbiology Laboratory Tests 11/15/24 03:30 Test 11/15/24 03:30 Range/Units Serum Glucose 150 H 74-106 mg/dL Microbiology Date/Time Source Procedure Growth Status 11/10/24 00:25 Urine - Dean Port Urine Culture - Final Complete 11/09/24 23:59 Nose MRSA Screen - Final Complete 10/23/24 11:25 Pleural Fluid Gram Stain - Final Complete 10/23/24 11:25 Pleural Fluid Aerobic Culture - Final Complete 10/05/24 19:19 Blood Blood Culture - Final NO GROWTH AFTER 5 DAYS OF INCUBATION. Complete Problem List/Assessment/Plan Problem List/Assessment/Plan 64 year old male w/ no previous medical followup admitted to hospital with sob diagnosed w/ new onset CHF EF 15% and transferred to ICU for Afib RVR Acute kidney injury due to hypotension/cardiorenal etiology ckd cr 1.1 on admission severe systolic HF EF 15% AFib with RVR Shock cardiogenic pericardial effusion afib RVR Hyponatremia Hypokalemia Currently he is on Lasix drip decrease to 6mg/hr, mild metabolic alkalosis, consider Diamox tomorrow restrict fluids , eat solids and reduce water fluid restriction Sodium , potassium, Mg monitoring daily high risk for cardiac arrest cardiology pending HLOC for impala after insurance approval Plan discussed with: Patient Dietary Evaluation Review Comments: 1. Refer to CDE on DC for weight management 2. Continue current plan of care Expected Outcomes/Goals: To meet >75% estimated needs Fu 3-5 days Critical Care Time (mins): 35 HUONG SHEPPARD MD Nov 15, 2024 16:07
[2024-11-15] MEDS: FUROSEMIDE INJECTION 100 MG in SODIUM CHL 0.9% 100 ML IV SCH (16:30)
--- NOTE | 2024-11-15 21:50 | DVHPN2 ---
Progress Note - Dictate Date Seen: Nov 15, 2024 Medical Necessity Reason Pt with a Central, PICC or Fol: Yes The following are medically ne: Dean Catheter Reason for dean catheter: Bladder Retention/Obstruc, Strict I&O Subjective Patient was seen and evaluated in follow up in the ICU. No overnight events. Patient's at bedside. Patient is on 2 LPM NC. WBC 14.3, NA 123, CO2 33, BUN 57, GLAZE HANDLER 1.80. Chest x-ray shows worsening bilateral airspace disease and pleural effusions. vital signs Vital Sign Date Time Temp Pulse Resp B/P (MAP) Pulse Ox O2 Delivery O2 Flow Rate FiO2 11/15/24 11:41 115 11/15/24 11:41 21 94 Nasal Cannula* 2 28 11/15/24 11:30 123/76 (92) 11/15/24 08:00 97.6 97.6 Total Intake and Output 11/14/24 11/14/24 11/15/24 14:59 22:59 06:59 Intake Total 97.850 ml 1043.9 ml 525.5 ml Output Total 1001 ml 1050 ml Balance 97.850 ml 42.9 ml -524.5 ml medications Current Medications Medications Dose Ordered Sig/Nadia Route Start Time Stop Time Status Last Admin Dose Admin Vancomycin HCl 250 ml @ 200 mls/hr Q12H IV 10/08/24 14:00 UNV Pantoprazole Sodium 40 mg DAILY@0600 PO 10/26/24 06:00 11/15/24 06:05 40 MG Apixaban 5 mg BID PO 10/29/24 22:00 11/15/24 07:42 5 MG Diphenhydramine HCl 50 mg QHSP PRN IV 11/03/24 16:30 Norepinephrine Bitartrate 250 ml @ 3.75 mls/hr Q24H IV 11/10/24 00:00 11/14/24 00:00 5.625 MLS/HR Enteral Nutritional Formula 240 ml TIDWM PO 11/11/24 18:00 11/15/24 11:43 240 ML Midodrine 10 mg TID@0600,1200,1800 PO 11/13/24 06:00 11/15/24 11:52 10 MG Potassium Bicarbonate 25 meq BID PO 11/13/24 22:00 11/15/24 07:42 25 MEQ Amiodarone HCl 200 mg Q12HR PO 11/13/24 22:00 11/15/24 07:42 200 MG Cefepime HCl 50 ml @ 12.5 mls/hr Q12HR IV 11/13/24 22:00 11/18/24 21:59 11/15/24 07:42 12.5 MLS/HR Sodium Chloride 10 ml QSHIFT@10,22 IV 11/13/24 22:00 11/15/24 07:42 10 ML Furosemide 100 mg/ Sodium Chloride 110 ml @ 11 mls/hr Q10H IV 11/14/24 14:30 11/15/24 10:18 11 MLS/HR objective GENERAL: Alert and oriented x 3. No acute distress. Morbidly obese. EYES: PERRL, EOMI. Anicteric. HENT: Moist mucous membranes. LUNGS: Diminished breath sounds. CARDIOVASCULAR: Irregular rate and rhythm. ABDOMEN: Soft, nontender and nondistended. EXTREMITIES: +3 pitting edema. NEUROLOGIC: No focal neurological deficits. SKIN: Warm, dry. laboratory and microbiology Laboratory Tests 11/15/24 03:30 Test 11/15/24 03:30 Range/Units Serum Glucose 150 H 74-106 mg/dL Problem List Atrial fibrillation with rapid ventricular response, newly diagnosed. Left pleural effusion. Sepsis. Hyperkalemia. Acute kidney injury. Transaminitis. Prediabetes. History of alcoholism. Morbidly obese. Severe systolic HF EF 15%, large pleural effusions. Pericardial effusion. Assessment/Plan Continued all current supportive medical care. Eliquis. Midodrine. Amiodarone. GI prophylactics. Diuretics with Lasix. IV antibiotics as ordered. Additional plan as per the hospital course. Critical care time of 45 minutes provided to include time spent evaluation of patient at bedside, when appropriate patient/family education for diagnosis, treatment plan, review of pertinent medical information and discussion of care with specialty providers and PCP. Dietary Evaluation Review Comments: 1. Refer to CDE on DC for weight management 2. Continue current plan of care Expected Outcomes/Goals: To meet >75% estimated needs Fu 3-5 days Plan discussed with: Patient XIOMY JERONIMO MD Nov 15, 2024 12:52
[2024-11-16] VITALS (54 sets, daily range): BP systolic 99–129; BP diastolic 70–92; PULSE 94–117; RESP 11–32; TEMP 97–97.8; O2SAT 93–96
[2024-11-16 03:29] LABS: Hematocrit 47.2 % (41.0-53.0); Hemoglobin 15.8 g/dL (13.5-17.5); Mean Corpuscular Hemoglobin 30.5 pg (28.0-32.0); Mean Corpuscular Volume 91.4 fL (80.0-100.0); Nucleated Red Blood Cells % 0.3 %
[2024-11-16 03:31] LABS: Potassium 4.2 mmol/L (3.5-5.1)
[2024-11-16 03:32] LABS: Anion Gap 7 (5-15); Calcium 9.6 mg/dL (8.7-10.4)
[2024-11-16 03:37] LABS: BUN/Creatinine Ratio 33.5 (10.0-20.0)
[2024-11-16 04:07] LABS: Blood Urea Nitrogen 61 mg/dL (9-23); Carbon Dioxide 36 mmol/L (20-31); Chloride 82 mmol/L (98-107); Glucose 146 mg/dL (74-106); Magnesium 2.8 mg/dL (1.6-2.6); Sodium 125 mmol/L (136-145)
--- NOTE | 2024-11-16 11:35 | DVHPN2 ---
Progress Note Date Seen: Nov 16, 2024 Medical Necessity Reason Pt with a Central, PICC or Fol: Yes The following are medically ne: Dean Catheter Reason for dean catheter: Bladder Retention/Obstruc, Strict I&O Subjective Patient reports: Feels better Objective vital signs Vital Sign Date Time Temp Pulse Resp B/P (MAP) Pulse Ox O2 Delivery O2 Flow Rate FiO2 11/16/24 10:30 113 32 120/87 (98) 94 11/16/24 09:38 Nasal Cannula* 2 28 11/16/24 08:00 97.3 97.3 Total Intake and Output 11/15/24 11/15/24 11/16/24 15:00 23:00 07:00 Intake Total 113.0 ml 819.2 ml 554.8 ml Output Total 925 ml 925 ml Balance 113.0 ml -105.8 ml -370.2 ml medications Current Medications Medications Dose Ordered Sig/Nadia Route Start Time Stop Time Status Last Admin Dose Admin Vancomycin HCl 250 ml @ 200 mls/hr Q12H IV 10/08/24 14:00 UNV Pantoprazole Sodium 40 mg DAILY@0600 PO 10/26/24 06:00 11/16/24 05:12 40 MG Apixaban 5 mg BID PO 10/29/24 22:00 11/16/24 08:12 5 MG Diphenhydramine HCl 50 mg QHSP PRN IV 11/03/24 16:30 Norepinephrine Bitartrate 250 ml @ 3.75 mls/hr Q24H IV 11/10/24 00:00 11/14/24 00:00 5.625 MLS/HR Enteral Nutritional Formula 240 ml TIDWM PO 11/11/24 18:00 11/16/24 08:04 240 ML Midodrine 10 mg TID@0600,1200,1800 PO 11/13/24 06:00 11/16/24 05:12 10 MG Potassium Bicarbonate 25 meq BID PO 11/13/24 22:00 11/16/24 08:11 25 MEQ Amiodarone HCl 200 mg Q12HR PO 11/13/24 22:00 11/16/24 08:12 200 MG Cefepime HCl 50 ml @ 12.5 mls/hr Q12HR IV 11/13/24 22:00 11/18/24 21:59 11/16/24 08:11 12.5 MLS/HR Sodium Chloride 10 ml QSHIFT@10,22 IV 11/13/24 22:00 11/16/24 08:11 10 ML Furosemide 100 mg/ Sodium Chloride 110 ml @ 6.6 mls/hr [id number] IV 11/15/24 16:15 11/15/24 22:17 6.6 MLS/HR Acetaminophen 650 mg Q4HP PRN PO 11/16/24 11:00 UNV Examination: GENERAL:Abnormal, LUNGS:Abnormal, CVS:Abnormal laboratory and microbiology Laboratory Tests 11/16/24 02:45 Test 11/16/24 02:45 Range/Units Serum Glucose 146 H 74-106 mg/dL Microbiology Date/Time Source Procedure Growth Status 11/10/24 00:25 Urine - Dean Port Urine Culture - Final Complete 11/09/24 23:59 Nose MRSA Screen - Final Complete 10/23/24 11:25 Pleural Fluid Gram Stain - Final Complete 10/23/24 11:25 Pleural Fluid Aerobic Culture - Final Complete 10/05/24 19:19 Blood Blood Culture - Final NO GROWTH AFTER 5 DAYS OF INCUBATION. Complete Problem List/Assessment/Plan Problem List/Assessment/Plan 64 year old male w/ no previous medical followup admitted to hospital with sob diagnosed w/ new onset CHF EF 15% and transferred to ICU for Afib RVR Acute kidney injury due to hypotension/cardiorenal etiology ckd cr 1.1 on admission severe systolic HF EF 15% AFib with RVR Shock cardiogenic pericardial effusion afib RVR Hyponatremia Hypokalemia Currently he is on Lasix drip decrease to 6mg/hr, mild metabolic alkalosis, consider Diamox today after obtaining VBG goal slight negative daily balance restrict fluids , eat solids and reduce water fluid restriction Sodium , potassium, Mg monitoring daily high risk for cardiac arrest cardiology pending HLOC for impala after insurance approval Plan discussed with: Patient My Orders My Orders Orders - HUONG SHEPPARD MD Procedure Category Date Status Time Sodium Chl 0.9% PHA 11/15/24 In Process (So... W/Furosemide 16:15 Abg W/ Co-Ox RT 11/16/24 Logged 06:00 Venous Blood Gas RT 11/16/24 Transmitted 11:33 Dietary Evaluation Review Comments: 1. Refer to CDE on DC for weight management 2. Continue current plan of care Expected Outcomes/Goals: To meet >75% estimated needs Fu 3-5 days Critical Care Time (mins): 36 HUONG SHEPPARD MD Nov 16, 2024 11:35
[2024-11-16] MEDS: ACETAMINOPHEN 325 MG TAB PO PRN (11:57)
--- NOTE | 2024-11-16 15:12 | DVHPN2 ---
Assessment/Plan Assessment/Plan progress note 64 M with HFrEF 15%, afib on Eliquis, recurrent PLEF, morbid obesity with prolonged ICU and medsurge admission. [facility] accepted pending insurance. iso pressor recs, leukocytosis, will reintroduce iv abx coverage with cefepime. improving kidney function, adequate diuresis on drips. seen today during rounds. bp miproved. started on aldactone 12.5. keep midodrine Physical exam obese aox4 JVD cannot be observed MMM PERLLA mild crackles s1 s2 irregular abdomen soft b/l LE edema Labs ekg imaging reviewed Assessment and plan Acute CHF exacerbation with systolic dysfunction Heart failure with reduced ejection fraction 15% Pericardial effusion not in tamponade Recurrent pleural effusion s/p throacentesis AFib with RVR , currently rate controlled Acute kidney injury 2/2 VMN now CKD 3b History of alcoholism Morbid obesity class I OHS/JEN with chronic CO2 retention Hypotension on midodrine Pericardial effusion Persistent hypokalemia dc diamox switch to bumex aim for -500 daily now on lasix drip failed conversion to po, will reattempt on a later date amio for rate control potassium replacement scheduled, daily chem while on diuresis midodrine s/p dobu and dopa (ectopy, dcd) lifevest bedside c/w Eliquis and asa pt protonix restart abx coverage with cefepime, no alergies noted diet mech soft dvt ppx on eliquis full code poor prognosis crit care time 33 minutes Plan discussed with: Patient My Orders Orders - IDALMIS DIAZ MD Procedure Category Date Status Time Acetaminophen Tablet PHA 11/16/24 In Process (Tylenol Tablet) 11:00 Date of Service: Nov 16, 2024 Billing Provider: IDALMIS DIAZ MD Common Visit Codes: [id number] CARE 30-74 MIN IDALMIS DIAZ MD Nov 16, 2024 15:12
--- NOTE | 2024-11-16 23:28 | DVHPN2 ---
Progress Note - Dictate Date Seen: Nov 16, 2024 Medical Necessity Reason Pt with a Central, PICC or Fol: Yes The following are medically ne: Dean Catheter Reason for dean catheter: Bladder Retention/Obstruc, Strict I&O Subjective Patient was seen and evaluated in follow up in the ICU. Patient complains of a headache. Patients BP has improved. 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 Pending financial clearance prior to transfer to [facility]. vital signs Vital Sign Date Time Temp Pulse Resp B/P (MAP) Pulse Ox O2 Delivery O2 Flow Rate FiO2 11/16/24 12:00 23 94 Nasal Cannula* 2 28 11/16/24 12:00 97.6 115 116/71 (86) 97.6 Total Intake and Output 11/15/24 11/15/24 11/16/24 15:00 23:00 07:00 Intake Total 113.0 ml 819.2 ml 554.8 ml Output Total 925 ml 925 ml Balance 113.0 ml -105.8 ml -370.2 ml medications Current Medications Medications Dose Ordered Sig/Nadia Route Start Time Stop Time Status Last Admin Dose Admin Vancomycin HCl 250 ml @ 200 mls/hr Q12H IV 10/08/24 14:00 UNV Pantoprazole Sodium 40 mg DAILY@0600 PO 10/26/24 06:00 11/16/24 05:12 40 MG Apixaban 5 mg BID PO 10/29/24 22:00 11/16/24 08:12 5 MG Diphenhydramine HCl 50 mg QHSP PRN IV 11/03/24 16:30 Norepinephrine Bitartrate 250 ml @ 3.75 mls/hr Q24H IV 11/10/24 00:00 11/14/24 00:00 5.625 MLS/HR Enteral Nutritional Formula 240 ml TIDWM PO 11/11/24 18:00 11/16/24 11:56 240 ML Midodrine 10 mg TID@0600,1200,1800 PO 11/13/24 06:00 11/16/24 11:56 10 MG Potassium Bicarbonate 25 meq BID PO 11/13/24 22:00 11/16/24 08:11 25 MEQ Amiodarone HCl 200 mg Q12HR PO 11/13/24 22:00 11/16/24 08:12 200 MG Cefepime HCl 50 ml @ 12.5 mls/hr Q12HR IV 11/13/24 22:00 11/18/24 21:59 11/16/24 08:11 12.5 MLS/HR Sodium Chloride 10 ml QSHIFT@10,22 IV 11/13/24 22:00 11/16/24 08:11 10 ML Furosemide 100 mg/ Sodium Chloride 110 ml @ 6.6 mls/hr [id number] IV 11/15/24 16:15 11/16/24 11:59 6.6 MLS/HR Acetaminophen 650 mg Q4HP PRN PO 11/16/24 11:00 11/16/24 11:57 650 MG objective GENERAL: Alert and oriented x 3. No acute distress. Morbidly obese. EYES: PERRL, EOMI. Anicteric. HENT: Moist mucous membranes. LUNGS: Diminished breath sounds. CARDIOVASCULAR: Irregular rate and rhythm. ABDOMEN: Soft, nontender and nondistended. EXTREMITIES: +3 pitting edema. NEUROLOGIC: No focal neurological deficits. SKIN: Warm, dry. laboratory and microbiology Laboratory Tests 11/16/24 02:45 Test 11/16/24 02:45 Range/Units Serum Glucose 146 H 74-106 mg/dL Problem List Atrial fibrillation with rapid ventricular response, newly diagnosed. Left pleural effusion. Sepsis. Hyperkalemia. Acute kidney injury. Transaminitis. Prediabetes. History of alcoholism. Morbidly obese. Severe systolic HF EF 15%, large pleural effusions. Pericardial effusion. Assessment/Plan Continued all current supportive medical care. Eliquis. Midodrine. Amiodarone. GI prophylactics. Diuretics with Lasix. IV antibiotics as ordered. Tylenol for pain management. Additional plan as per the hospital course. Critical care time of 45 minutes provided to include time spent evaluation of patient at bedside, when appropriate patient/family education for diagnosis, treatment plan, review of pertinent medical information and discussion of care with specialty providers and PCP. Dietary Evaluation Review Comments: 1. Refer to CDE on DC for weight management 2. Continue current plan of care Expected Outcomes/Goals: To meet >75% estimated needs Fu 3-5 days Plan discussed with: Patient XIOMY JERONIMO MD Nov 16, 2024 12:36
[2024-11-17] VITALS (52 sets, daily range): BP systolic 97–148; BP diastolic 68–93; PULSE 98–117; RESP 14–32; TEMP 97–98; O2SAT 93–96
[2024-11-17 03:35] LABS: Hematocrit 48.6 % (41.0-53.0); Hemoglobin 16.2 g/dL (13.5-17.5); Mean Corpuscular Hemoglobin 30.6 pg (28.0-32.0); Mean Corpuscular Volume 91.9 fL (80.0-100.0); Nucleated Red Blood Cells % 0.3 %
[2024-11-17 03:47] LABS: Alanine Aminotransferase 31 U/L (7-40); Anion Gap 9 (5-15); BUN/Creatinine Ratio 33.3 (10.0-20.0); Potassium 4.6 mmol/L (3.5-5.1)
[2024-11-17 03:48] LABS: Total Protein 6.2 g/dL (5.7-8.2)
[2024-11-17 03:49] LABS: Albumin 4.1 g/dL (3.2-4.8)
[2024-11-17 03:54] LABS: Alkaline Phosphatase 119 U/L (46-116); Bilirubin, Total 1.2 mg/dL (0.2-1.0); Blood Urea Nitrogen 61 mg/dL (9-23); Calcium 10.6 mg/dL (8.7-10.4); Carbon Dioxide 35 mmol/L (20-31); Chloride 83 mmol/L (98-107); Glucose 150 mg/dL (74-106); Magnesium 2.9 mg/dL (1.6-2.6); Sodium 127 mmol/L (136-145)
[2024-11-17] MEDS: SPIRONOLACTONE 25 MG TAB PO SCH (10:09)
--- NOTE | 2024-11-17 10:56 | DVHPN2 ---
Assessment/Plan Assessment/Plan progress note 64 M with HFrEF 15%, afib on Eliquis, recurrent PLEF, morbid obesity with prolonged ICU and medsurge admission. [facility] accepted pending insurance. iso pressor recs, leukocytosis, will reintroduce iv abx coverage with cefepime. improving kidney function, adequate diuresis on drips. seen today during rounds. hold midodrine today. dc k supplement Physical exam obese aox4 JVD cannot be observed MMM PERLLA mild crackles s1 s2 irregular abdomen soft b/l LE edema Labs ekg imaging reviewed Assessment and plan Acute CHF exacerbation with systolic dysfunction Heart failure with reduced ejection fraction 15% Pericardial effusion not in tamponade Recurrent pleural effusion s/p throacentesis AFib with RVR , currently rate controlled Acute kidney injury 2/2 VMN now CKD 3b History of alcoholism Morbid obesity class I OHS/JEN with chronic CO2 retention Hypotension on midodrine Pericardial effusion Persistent hypokalemia dc diamox switch to bumex aim for -500 daily now on lasix drip failed conversion to po, will reattempt on a later date amio for rate control potassium replacement scheduled, hold today midodrine s/p dobu and dopa (ectopy, dcd) lifevest bedside c/w Eliquis and asa pt protonix restart abx coverage with cefepime, no alergies noted wound consult diet mech soft dvt ppx on eliquis full code poor prognosis crit care time 34 minutes Plan discussed with: Patient My Orders Orders - IDALMIS DIAZ MD Procedure Category Date Status Time Acetaminophen Tablet PHA 11/16/24 In Process (Tylenol Tablet) 11:00 Spironolactone PHA 11/17/24 In Process (Aldactone) 10:00 Basic Metabolic Panel LAB 11/18/24 Verified 04:00 Complete Blood Count LAB 11/18/24 Verified 04:00 Date of Service: Nov 17, 2024 Billing Provider: IDALMIS DIAZ MD Common Visit Codes: [id number] CARE 30-74 MIN IDALMIS DIAZ MD Nov 17, 2024 10:56
--- NOTE | 2024-11-17 12:29 | DVHPN2 ---
Progress Note Date Seen: Nov 17, 2024 Medical Necessity Reason Pt with a Central, PICC or Fol: Yes The following are medically ne: Dean Catheter Reason for dean catheter: Bladder Retention/Obstruc, Strict I&O Subjective Changes from previous H/P or p: No Changes Objective vital signs Vital Sign Date Time Temp Pulse Resp B/P (MAP) Pulse Ox O2 Delivery O2 Flow Rate FiO2 11/17/24 10:30 114 28 123/74 (90) 94 11/17/24 10:00 Nasal Cannula* 2 28 11/17/24 08:00 97.1 97.1 Total Intake and Output 11/16/24 11/16/24 11/17/24 15:00 23:00 07:00 Intake Total 90.3 ml 565.3 ml 583.7 ml Output Total 800 ml 850 ml Balance 90.3 ml -234.7 ml -266.3 ml medications Current Medications Medications Dose Ordered Sig/Nadia Route Start Time Stop Time Status Last Admin Dose Admin Vancomycin HCl 250 ml @ 200 mls/hr Q12H IV 10/08/24 14:00 UNV Pantoprazole Sodium 40 mg DAILY@0600 PO 10/26/24 06:00 11/17/24 05:39 40 MG Apixaban 5 mg BID PO 10/29/24 22:00 11/17/24 10:09 5 MG Diphenhydramine HCl 50 mg QHSP PRN IV 11/03/24 16:30 Norepinephrine Bitartrate 250 ml @ 3.75 mls/hr Q24H IV 11/10/24 00:00 11/14/24 00:00 5.625 MLS/HR Enteral Nutritional Formula 240 ml TIDWM PO 11/11/24 18:00 11/17/24 10:10 240 ML Amiodarone HCl 200 mg Q12HR PO 11/13/24 22:00 11/17/24 10:09 200 MG Cefepime HCl 50 ml @ 12.5 mls/hr Q12HR IV 11/13/24 22:00 11/18/24 21:59 11/17/24 10:09 12.5 MLS/HR Sodium Chloride 10 ml QSHIFT@10,22 IV 11/13/24 22:00 11/17/24 10:10 10 ML Furosemide 100 mg/ Sodium Chloride 110 ml @ 6.6 mls/hr [id number] IV 11/15/24 16:15 11/17/24 04:08 6.6 MLS/HR Acetaminophen 650 mg Q4HP PRN PO 11/16/24 11:00 11/16/24 11:57 650 MG Spironolactone 12.5 mg DAILY PO 11/17/24 10:00 11/17/24 10:09 12.5 MG Examination: GENERAL:Abnormal, CVS:Abnormal, SKIN:Normal laboratory and microbiology Laboratory Tests 11/17/24 03:11 Test 11/17/24 03:11 Range/Units Serum Glucose 150 H 74-106 mg/dL Microbiology Date/Time Source Procedure Growth Status 11/10/24 00:25 Urine - Dean Port Urine Culture - Final Complete 11/09/24 23:59 Nose MRSA Screen - Final Complete 10/23/24 11:25 Pleural Fluid Gram Stain - Final Complete 10/23/24 11:25 Pleural Fluid Aerobic Culture - Final Complete 10/05/24 19:19 Blood Blood Culture - Final NO GROWTH AFTER 5 DAYS OF INCUBATION. Complete Problem List/Assessment/Plan Problem List/Assessment/Plan 64 year old male w/ no previous medical followup admitted to hospital with sob diagnosed w/ new onset CHF EF 15% and transferred to ICU for Afib RVR Acute kidney injury due to hypotension/cardiorenal etiology ckd cr 1.1 on admission severe systolic HF EF 15% AFib with RVR Shock cardiogenic pericardial effusion afib RVR Hyponatremia Hypokalemia Currently he is on Lasix drip aldactone goal slight negative daily balance restrict fluids , eat solids and reduce water fluid restriction Sodium , potassium, Mg monitoring daily high risk for cardiac arrest cardiology pending HLOC for impala after insurance approval Plan discussed with: Patient Dietary Evaluation Review Comments: 1. Refer to CDE on DC for weight management 2. Continue current plan of care Expected Outcomes/Goals: To meet >75% estimated needs Fu 3-5 days Critical Care Time (mins): 33 HUONG SHEPPARD MD Nov 17, 2024 12:29
--- NOTE | 2024-11-17 23:53 | DVHPN2 ---
Progress Note - Dictate Date Seen: Nov 17, 2024 Medical Necessity Reason Pt with a Central, PICC or Fol: Yes The following are medically ne: Dean Catheter Reason for dean catheter: Bladder Retention/Obstruc, Strict I&O Subjective Patient was seen and evaluated in follow up in the ICU. Patient complains of a headache. WBC 15.1, NA 127, CO2 35, BUN 61, HARBOR ENGINEER 1.83, CA 10.6. Per CM, they are currently awaiting bed placement and physician acceptance. vital signs Vital Sign Date Time Temp Pulse Resp B/P (MAP) Pulse Ox O2 Delivery O2 Flow Rate FiO2 11/17/24 12:30 108 20 117/78 (91) 94 11/17/24 12:00 Nasal Cannula* 2 28 11/17/24 12:00 98.0 98.0 Total Intake and Output 11/16/24 11/16/24 11/17/24 15:00 23:00 07:00 Intake Total 90.3 ml 565.3 ml 590.3 ml Output Total 800 ml 850 ml Balance 90.3 ml -234.7 ml -259.7 ml medications Current Medications Medications Dose Ordered Sig/Nadia Route Start Time Stop Time Status Last Admin Dose Admin Vancomycin HCl 250 ml @ 200 mls/hr Q12H IV 10/08/24 14:00 UNV Pantoprazole Sodium 40 mg DAILY@0600 PO 10/26/24 06:00 11/17/24 05:39 40 MG Apixaban 5 mg BID PO 10/29/24 22:00 11/17/24 10:09 5 MG Diphenhydramine HCl 50 mg QHSP PRN IV 11/03/24 16:30 Norepinephrine Bitartrate 250 ml @ 3.75 mls/hr Q24H IV 11/10/24 00:00 11/14/24 00:00 5.625 MLS/HR Enteral Nutritional Formula 240 ml TIDWM PO 11/11/24 18:00 11/17/24 10:10 240 ML Amiodarone HCl 200 mg Q12HR PO 11/13/24 22:00 11/17/24 10:09 200 MG Cefepime HCl 50 ml @ 12.5 mls/hr Q12HR IV 11/13/24 22:00 11/18/24 21:59 11/17/24 10:09 12.5 MLS/HR Sodium Chloride 10 ml QSHIFT@10,22 IV 11/13/24 22:00 11/17/24 10:10 10 ML Furosemide 100 mg/ Sodium Chloride 110 ml @ 6.6 mls/hr [id number] IV 11/15/24 16:15 11/17/24 04:08 6.6 MLS/HR Acetaminophen 650 mg Q4HP PRN PO 11/16/24 11:00 11/16/24 11:57 650 MG Spironolactone 12.5 mg DAILY PO 11/17/24 10:00 11/17/24 10:09 12.5 MG objective GENERAL: Alert and oriented x 3. No acute distress. Morbidly obese. EYES: PERRL, EOMI. Anicteric. HENT: Moist mucous membranes. LUNGS: Diminished breath sounds. CARDIOVASCULAR: Irregular rate and rhythm. ABDOMEN: Soft, nontender and nondistended. EXTREMITIES: +3 pitting edema. NEUROLOGIC: No focal neurological deficits. SKIN: Warm, dry. laboratory and microbiology Laboratory Tests 11/17/24 03:11 Test 11/17/24 03:11 Range/Units Serum Glucose 150 H 74-106 mg/dL Problem List Atrial fibrillation with rapid ventricular response, newly diagnosed. Left pleural effusion. Sepsis. Hyperkalemia. Acute kidney injury. Transaminitis. Prediabetes. History of alcoholism. Morbidly obese. Severe systolic HF EF 15%, large pleural effusions. Pericardial effusion. Assessment/Plan Continued all current supportive medical care. Eliquis. Amiodarone. Aldactone. GI prophylactics. Diuretics with Lasix. IV antibiotics as ordered. Additional plan as per the hospital course. Critical care time of 45 minutes provided to include time spent evaluation of patient at bedside, when appropriate patient/family education for diagnosis, treatment plan, review of pertinent medical information and discussion of care with specialty providers and PCP. Dietary Evaluation Review Comments: 1. Refer to CDE on DC for weight management 2. Continue current plan of care Expected Outcomes/Goals: To meet >75% estimated needs Fu 3-5 days Plan discussed with: Patient XIOMY JERONIMO MD Nov 17, 2024 13:08
[2024-11-18] VITALS (47 sets, daily range): BP systolic 90–126; BP diastolic 62–86; PULSE 92–117; RESP 12–29; TEMP 97–97.3; O2SAT 92–95
[2024-11-18 03:21] LABS: Hematocrit 46.0 % (41.0-53.0); Hemoglobin 15.6 g/dL (13.5-17.5); Mean Corpuscular Hemoglobin 31.1 pg (28.0-32.0); Mean Corpuscular Volume 91.8 fL (80.0-100.0); Nucleated Red Blood Cells % 0.2 %
[2024-11-18 03:26] LABS: Potassium 4.2 mmol/L (3.5-5.1)
[2024-11-18 03:27] LABS: Anion Gap 9 (5-15); Calcium 9.8 mg/dL (8.7-10.4)
[2024-11-18 03:32] LABS: BUN/Creatinine Ratio 34.3 (10.0-20.0)
[2024-11-18 03:38] LABS: Blood Urea Nitrogen 62 mg/dL (9-23); Carbon Dioxide 35 mmol/L (20-31); Chloride 84 mmol/L (98-107); Glucose 137 mg/dL (74-106); Sodium 128 mmol/L (136-145)
--- NOTE | 2024-11-18 10:10 | DVHPN2 ---
Progress Note Date Seen: Nov 18, 2024 Medical Necessity Reason Pt with a Central, PICC or Fol: Yes The following are medically ne: Dean Catheter Reason for dean catheter: Bladder Retention/Obstruc, Strict I&O Subjective Patient reports: Feels better Changes from previous H/P or p: No Changes Objective vital signs Vital Sign Date Time Temp Pulse Resp B/P (MAP) Pulse Ox O2 Delivery O2 Flow Rate FiO2 11/18/24 09:00 114 28 115/79 (91) 93 11/18/24 06:00 Nasal Cannula* 2 28 11/18/24 04:00 97.0 97.0 Total Intake and Output 11/17/24 11/17/24 11/18/24 15:00 23:00 07:00 Intake Total 102.8 ml 1119.8 ml 783.2 ml Output Total 850 ml 800 ml Balance 102.8 ml 269.8 ml -16.8 ml medications Current Medications Medications Dose Ordered Sig/Nadia Route Start Time Stop Time Status Last Admin Dose Admin Vancomycin HCl 250 ml @ 200 mls/hr Q12H IV 10/08/24 14:00 UNV Pantoprazole Sodium 40 mg DAILY@0600 PO 10/26/24 06:00 11/18/24 05:33 40 MG Apixaban 5 mg BID PO 10/29/24 22:00 11/17/24 20:54 5 MG Diphenhydramine HCl 50 mg QHSP PRN IV 11/03/24 16:30 Norepinephrine Bitartrate 250 ml @ 3.75 mls/hr Q24H IV 11/10/24 00:00 11/14/24 00:00 5.625 MLS/HR Enteral Nutritional Formula 240 ml TIDWM PO 11/11/24 18:00 11/17/24 18:32 240 ML Amiodarone HCl 200 mg Q12HR PO 11/13/24 22:00 11/17/24 20:54 200 MG Cefepime HCl 50 ml @ 12.5 mls/hr Q12HR IV 11/13/24 22:00 11/18/24 21:59 11/17/24 20:55 12.5 MLS/HR Sodium Chloride 10 ml QSHIFT@10,22 IV 11/13/24 22:00 11/17/24 20:55 10 ML Furosemide 100 mg/ Sodium Chloride 110 ml @ 6.6 mls/hr [id number] IV 11/15/24 16:15 11/17/24 19:36 6.6 MLS/HR Acetaminophen 650 mg Q4HP PRN PO 11/16/24 11:00 11/16/24 11:57 650 MG Spironolactone 12.5 mg DAILY PO 11/17/24 10:00 11/17/24 10:09 12.5 MG Examination: GENERAL:Normal, CVS:Abnormal laboratory and microbiology Laboratory Tests 11/18/24 02:35 Test 11/18/24 02:35 Range/Units Serum Glucose 137 H 74-106 mg/dL Microbiology Date/Time Source Procedure Growth Status 11/10/24 00:25 Urine - Dean Port Urine Culture - Final Complete 11/09/24 23:59 Nose MRSA Screen - Final Complete 10/23/24 11:25 Pleural Fluid Gram Stain - Final Complete 10/23/24 11:25 Pleural Fluid Aerobic Culture - Final Complete 10/05/24 19:19 Blood Blood Culture - Final NO GROWTH AFTER 5 DAYS OF INCUBATION. Complete Problem List/Assessment/Plan Problem List/Assessment/Plan 64 year old male w/ no previous medical followup admitted to hospital with sob diagnosed w/ new onset CHF EF 15% and transferred to ICU for Afib RVR Acute kidney injury due to hypotension/cardiorenal etiology ckd cr 1.1 on admission severe systolic HF EF 15% AFib with RVR Shock cardiogenic pericardial effusion afib RVR Hyponatremia Hypokalemia Currently he is on Lasix drip aldactone goal slight negative daily balance restrict fluids , eat solids and reduce water fluid restriction Sodium , potassium, Mg monitoring daily high risk for cardiac arrest cardiology pending HLOC for impala after insurance approval Plan discussed with: Patient Dietary Evaluation Review Comments: 1. Refer to CDE on DC for weight management 2. Continue current plan of care Expected Outcomes/Goals: To meet >75% estimated needs Fu 3-5 days Critical Care Time (mins): 33 HUONG SHEPPARD MD Nov 18, 2024 10:10
--- NOTE | 2024-11-18 14:03 | DVHPN2 ---
Assessment/Plan Assessment/Plan progress note 64 M with HFrEF 15%, afib on Eliquis, recurrent PLEF, morbid obesity with prolonged ICU and medsurge admission. [facility] accepted pending insurance. iso pressor recs, leukocytosis, will reintroduce iv abx coverage with cefepime. improving kidney function, adequate diuresis on drips. seen today during rounds. wound on back covered with eschar. will remove lifevest for now, place on pads. wound care. pending HLOC for LVAD. still on lasix drip Physical exam obese aox4 JVD cannot be observed MMM PERLLA mild crackles s1 s2 irregular abdomen soft b/l LE edema Labs ekg imaging reviewed Assessment and plan Acute CHF exacerbation with systolic dysfunction Heart failure with reduced ejection fraction 15% Pericardial effusion not in tamponade Recurrent pleural effusion s/p throacentesis AFib with RVR , currently rate controlled Acute kidney injury 2/2 VMN now CKD 3b History of alcoholism Morbid obesity class I OHS/JEN with chronic CO2 retention Hypotension on midodrine Pericardial effusion Persistent hypokalemia dc diamox switch to bumex aim for -500 daily now on lasix drip failed conversion to po, will reattempt on a later date amio for rate control potassium replacement scheduled, hold today midodrine s/p dobu and dopa (ectopy, dcd) lifevest bedside c/w Eliquis and asa pt protonix restart abx coverage with cefepime, no alergies noted wound consult diet mech soft dvt ppx on eliquis full code poor prognosis crit care time 35 minutes Plan discussed with: Patient, Spouse, Daughter My Orders Orders - IDALMIS DIAZ MD Procedure Category Date Status Time Communication Order ORDERS 11/18/24 Transmitted 10:15 Date of Service: Nov 18, 2024 Billing Provider: IDALMIS DIAZ MD Common Visit Codes: [id number] CARE 30-74 MIN IDALMIS DIAZ MD Nov 18, 2024 14:03
--- NOTE | 2024-11-18 22:44 | DVHPN2 ---
Progress Note - Dictate Date Seen: Nov 18, 2024 Medical Necessity Reason Pt with a Central, PICC or Fol: Yes The following are medically ne: Dean Catheter Reason for dean catheter: Bladder Retention/Obstruc, Strict I&O Subjective Patient was seen and evaluated in follow up in the ICU. Patient reports feeling better today. Patient is tachycardic in the 100's. WBC 13.9, NA 128, CL 84, CO2 35, BUN 62, LEAD [employer] SOFTWARE ENGINEER 1.81. vital signs Vital Sign Date Time Temp Pulse Resp B/P (MAP) Pulse Ox O2 Delivery O2 Flow Rate FiO2 11/18/24 12:07 117/74 11/18/24 12:00 16 93 Nasal Cannula* 2 28 11/18/24 12:00 103 11/18/24 04:00 97.0 97.0 Total Intake and Output 11/17/24 11/17/24 11/18/24 15:00 23:00 07:00 Intake Total 102.8 ml 1119.8 ml 783.2 ml Output Total 850 ml 800 ml Balance 102.8 ml 269.8 ml -16.8 ml medications Current Medications Medications Dose Ordered Sig/Nadia Route Start Time Stop Time Status Last Admin Dose Admin Vancomycin HCl 250 ml @ 200 mls/hr Q12H IV 10/08/24 14:00 UNV Pantoprazole Sodium 40 mg DAILY@0600 PO 10/26/24 06:00 11/18/24 05:33 40 MG Apixaban 5 mg BID PO 10/29/24 22:00 11/18/24 11:10 5 MG Diphenhydramine HCl 50 mg QHSP PRN IV 11/03/24 16:30 Norepinephrine Bitartrate 250 ml @ 3.75 mls/hr Q24H IV 11/10/24 00:00 11/14/24 00:00 5.625 MLS/HR Enteral Nutritional Formula 240 ml TIDWM PO 11/11/24 18:00 11/18/24 12:07 240 ML Amiodarone HCl 200 mg Q12HR PO 11/13/24 22:00 11/18/24 11:10 200 MG Cefepime HCl 50 ml @ 12.5 mls/hr Q12HR IV 11/13/24 22:00 11/18/24 21:59 11/18/24 11:11 12.5 MLS/HR Sodium Chloride 10 ml QSHIFT@10,22 IV 11/13/24 22:00 11/18/24 11:10 10 ML Furosemide 100 mg/ Sodium Chloride 110 ml @ 6.6 mls/hr [id number] IV 11/15/24 16:15 11/18/24 12:07 6.6 MLS/HR Acetaminophen 650 mg Q4HP PRN PO 11/16/24 11:00 11/16/24 11:57 650 MG Spironolactone 12.5 mg DAILY PO 11/17/24 10:00 11/18/24 11:10 12.5 MG objective GENERAL: Alert and oriented x 3. No acute distress. Morbidly obese. EYES: PERRL, EOMI. Anicteric. HENT: Moist mucous membranes. LUNGS: Diminished breath sounds. CARDIOVASCULAR: Irregular rate and rhythm. ABDOMEN: Soft, nontender and nondistended. EXTREMITIES: +3 pitting edema. NEUROLOGIC: No focal neurological deficits. SKIN: Warm, dry. laboratory and microbiology Laboratory Tests 11/18/24 02:35 Test 11/18/24 02:35 Range/Units Serum Glucose 137 H 74-106 mg/dL Problem List Atrial fibrillation with rapid ventricular response, newly diagnosed. Left pleural effusion. Sepsis. Hyperkalemia. Acute kidney injury. Transaminitis. Prediabetes. History of alcoholism. Morbidly obese. Severe systolic HF EF 15%, large pleural effusions. Pericardial effusion. Assessment/Plan Continued all current supportive medical care. Eliquis. Amiodarone. Aldactone. GI prophylactics. Diuretics with Lasix. IV antibiotics as ordered. Additional plan as per the hospital course. Critical care time of 45 minutes provided to include time spent evaluation of patient at bedside, when appropriate patient/family education for diagnosis, treatment plan, review of pertinent medical information and discussion of care with specialty providers and PCP. Dietary Evaluation Review Comments: 1. Refer to CDE on DC for weight management 2. Continue current plan of care Expected Outcomes/Goals: To meet >75% estimated needs Fu 3-5 days Plan discussed with: Patient XIOMY JERONIMO MD Nov 18, 2024 13:58
[2024-11-19] VITALS (48 sets, daily range): BP systolic 88–133; BP diastolic 62–91; PULSE 87–118; RESP 10–28; TEMP 97–98.1; O2SAT 92–99
[2024-11-19 03:43] LABS: Potassium 4.2 mmol/L (3.5-5.1)
[2024-11-19 03:44] LABS: Anion Gap 8 (5-15); Calcium 9.6 mg/dL (8.7-10.4)
[2024-11-19 03:49] LABS: BUN/Creatinine Ratio 33.9 (10.0-20.0)
[2024-11-19 03:50] LABS: Blood Urea Nitrogen 60 mg/dL (9-23); Carbon Dioxide 35 mmol/L (20-31); Chloride 86 mmol/L (98-107); Glucose 136 mg/dL (74-106); Sodium 129 mmol/L (136-145)
[2024-11-19 04:23] LABS: Hematocrit 46.4 % (41.0-53.0); Hemoglobin 15.5 g/dL (13.5-17.5); Mean Corpuscular Hemoglobin 30.8 pg (28.0-32.0); Mean Corpuscular Volume 92.4 fL (80.0-100.0); Nucleated Red Blood Cells % 0.3 %
[2024-11-19 04:36] LABS: Magnesium 2.9 mg/dL (1.6-2.6)
--- NOTE | 2024-11-19 11:36 | DVHPN2 ---
Progress Note Date Seen: Nov 19, 2024 Medical Necessity Reason Pt with a Central, PICC or Fol: Yes The following are medically ne: Dean Catheter Reason for dean catheter: Bladder Retention/Obstruc, Strict I&O Subjective Patient reports: Feels better Objective vital signs Vital Sign Date Time Temp Pulse Resp B/P (MAP) Pulse Ox O2 Delivery O2 Flow Rate FiO2 11/19/24 10:00 14 95 Nasal Cannula* 2 28 11/19/24 10:00 113 11/19/24 09:30 117/80 (92) 11/19/24 08:00 97.8 97.8 Total Intake and Output 11/18/24 11/18/24 11/19/24 15:00 23:00 07:00 Intake Total 336.2 ml 989.8 ml 253.2 ml Output Total 950 ml 850 ml Balance 336.2 ml 39.8 ml -596.8 ml medications Current Medications Medications Dose Ordered Sig/Nadia Route Start Time Stop Time Status Last Admin Dose Admin Vancomycin HCl 250 ml @ 200 mls/hr Q12H IV 10/08/24 14:00 UNV Pantoprazole Sodium 40 mg DAILY@0600 PO 10/26/24 06:00 11/19/24 06:35 40 MG Apixaban 5 mg BID PO 10/29/24 22:00 11/19/24 09:50 5 MG Diphenhydramine HCl 50 mg QHSP PRN IV 11/03/24 16:30 Norepinephrine Bitartrate 250 ml @ 3.75 mls/hr Q24H IV 11/10/24 00:00 11/14/24 00:00 5.625 MLS/HR Enteral Nutritional Formula 240 ml TIDWM PO 11/11/24 18:00 11/19/24 08:00 240 ML Amiodarone HCl 200 mg Q12HR PO 11/13/24 22:00 11/19/24 09:50 200 MG Sodium Chloride 10 ml QSHIFT@10,22 IV 11/13/24 22:00 11/19/24 09:49 10 ML Furosemide 100 mg/ Sodium Chloride 110 ml @ 6.6 mls/hr [id number] IV 11/15/24 16:15 11/19/24 03:21 6.6 MLS/HR Acetaminophen 650 mg Q4HP PRN PO 11/16/24 11:00 11/16/24 11:57 650 MG Spironolactone 12.5 mg DAILY PO 11/17/24 10:00 11/19/24 09:51 12.5 MG Examination: GENERAL:Abnormal, CVS:Abnormal, SKIN:Abnormal laboratory and microbiology Laboratory Tests 11/19/24 03:00 Test 11/19/24 03:00 Range/Units Serum Glucose 136 H 74-106 mg/dL Microbiology Date/Time Source Procedure Growth Status 11/10/24 00:25 Urine - Dean Port Urine Culture - Final Complete 11/09/24 23:59 Nose MRSA Screen - Final Complete 10/23/24 11:25 Pleural Fluid Gram Stain - Final Complete 10/23/24 11:25 Pleural Fluid Aerobic Culture - Final Complete 10/05/24 19:19 Blood Blood Culture - Final NO GROWTH AFTER 5 DAYS OF INCUBATION. Complete Problem List/Assessment/Plan Problem List/Assessment/Plan 64 year old male w/ no previous medical followup admitted to hospital with sob diagnosed w/ new onset CHF EF 15% and transferred to ICU for Afib RVR Acute kidney injury due to hypotension/cardiorenal etiology ckd cr 1.1 on admission severe systolic HF EF 15% AFib with RVR Shock cardiogenic pericardial effusion afib RVR Hyponatremia Hypokalemia Currently he is on Lasix drip aldactone goal slight negative daily balance restrict fluids , eat solids and reduce water fluid restriction Sodium , potassium, Mg monitoring daily high risk for cardiac arrest cardiology pending HLOC for impala after insurance approval Plan discussed with: Patient Dietary Evaluation Review Comments: 1. Refer to CDE on DC for weight management 2. Continue current plan of care Expected Outcomes/Goals: To meet >75% estimated needs Fu 3-5 days Critical Care Time (mins): 33 HUONG SHEPPARD MD Nov 19, 2024 11:36
--- NOTE | 2024-11-19 14:47 | DVHPN2 ---
Assessment/Plan Assessment/Plan progress note 64 M with HFrEF 15%, afib on Eliquis, recurrent PLEF, morbid obesity with prolonged ICU and medsurge admission. [facility] accepted pending insurance. iso pressor recs, leukocytosis, will reintroduce iv abx coverage with cefepime. improving kidney function, adequate diuresis on drips. seen today during rounds. wound care. c/w iv diuresis. watch lytes. pending insurance Physical exam obese aox4 JVD cannot be observed MMM PERLLA mild crackles s1 s2 irregular abdomen soft b/l LE edema Labs ekg imaging reviewed Assessment and plan Acute CHF exacerbation with systolic dysfunction Heart failure with reduced ejection fraction 15% Pericardial effusion not in tamponade Recurrent pleural effusion s/p throacentesis AFib with RVR , currently rate controlled Acute kidney injury 2/2 VMN now CKD 3b History of alcoholism Morbid obesity class I OHS/JEN with chronic CO2 retention Hypotension on midodrine Pericardial effusion Persistent hypokalemia dc diamox switch to bumex aim for -500 daily now on lasix drip failed conversion to po, will reattempt on a later date amio for rate control potassium replacement scheduled, hold today midodrine s/p dobu and dopa (ectopy, dcd) lifevest bedside c/w Eliquis and asa pt protonix restart abx coverage with cefepime, no alergies noted wound consult diet mech soft dvt ppx on eliquis full code poor prognosis crit care time 32 minutes Plan discussed with: Patient Date of Service: Nov 19, 2024 Billing Provider: IDALMIS DIAZ MD Common Visit Codes: [id number] CARE 30-74 MIN IDALMIS DIAZ MD Nov 19, 2024 14:46
--- NOTE | 2024-11-19 22:59 | DVHPN2 ---
Progress Note - Dictate Date Seen: Nov 19, 2024 Medical Necessity Reason Pt with a Central, PICC or Fol: Yes The following are medically ne: Dean Catheter Reason for dean catheter: Bladder Retention/Obstruc, Strict I&O Subjective Patient was seen and evaluated in follow up in the ICU. Patient is on 2 LPM NC. Patient is complaining of generalized pain. WBC 13.7. NA 129, BUN 60, SPOT WORKER 1.77. [facility] vital signs Vital Sign Date Time Temp Pulse Resp B/P (MAP) Pulse Ox O2 Delivery O2 Flow Rate FiO2 11/19/24 22:30 116 20 126/74 (91) 94 11/19/24 22:00 Nasal Cannula* 2 28 11/19/24 20:00 97.5 97.5 Total Intake and Output 11/18/24 11/18/24 11/19/24 15:00 23:00 07:00 Intake Total 336.2 ml 989.8 ml 253.2 ml Output Total 950 ml 850 ml Balance 336.2 ml 39.8 ml -596.8 ml medications Current Medications Medications Dose Ordered Sig/Nadia Route Start Time Stop Time Status Last Admin Dose Admin Vancomycin HCl 250 ml @ 200 mls/hr Q12H IV 10/08/24 14:00 UNV Pantoprazole Sodium 40 mg DAILY@0600 PO 10/26/24 06:00 11/19/24 06:35 40 MG Apixaban 5 mg BID PO 10/29/24 22:00 11/19/24 19:56 5 MG Diphenhydramine HCl 50 mg QHSP PRN IV 11/03/24 16:30 Norepinephrine Bitartrate 250 ml @ 3.75 mls/hr Q24H IV 11/10/24 00:00 11/14/24 00:00 5.625 MLS/HR Enteral Nutritional Formula 240 ml TIDWM PO 11/11/24 18:00 11/19/24 17:10 240 ML Amiodarone HCl 200 mg Q12HR PO 11/13/24 22:00 11/19/24 19:56 200 MG Sodium Chloride 10 ml QSHIFT@10,22 IV 11/13/24 22:00 11/19/24 19:57 10 ML Furosemide 100 mg/ Sodium Chloride 110 ml @ 6.6 mls/hr [id number] IV 11/15/24 16:15 11/19/24 17:40 6.6 MLS/HR Acetaminophen 650 mg Q4HP PRN PO 11/16/24 11:00 11/16/24 11:57 650 MG Spironolactone 12.5 mg DAILY PO 11/17/24 10:00 11/19/24 09:51 12.5 MG objective GENERAL: Alert and oriented x 3. No acute distress. Morbidly obese. EYES: PERRL, EOMI. Anicteric. HENT: Moist mucous membranes. LUNGS: Diminished breath sounds. CARDIOVASCULAR: Irregular rate and rhythm. ABDOMEN: Soft, nontender and nondistended. EXTREMITIES: +3 pitting edema. NEUROLOGIC: No focal neurological deficits. SKIN: Warm, dry. laboratory and microbiology Laboratory Tests 11/19/24 03:00 Test 11/19/24 03:00 Range/Units Serum Glucose 136 H 74-106 mg/dL Problem List Atrial fibrillation with rapid ventricular response, newly diagnosed. Left pleural effusion. Sepsis. Hyperkalemia. Acute kidney injury. Transaminitis. Prediabetes. History of alcoholism. Morbidly obese. Severe systolic HF EF 15%, large pleural effusions. Pericardial effusion. Assessment/Plan Continued all current supportive medical care. Eliquis. Amiodarone. Aldactone. GI prophylactics. Diuretics with Lasix. IV antibiotics as ordered. Additional plan as per the hospital course. Critical care time of 45 minutes provided to include time spent evaluation of patient at bedside, when appropriate patient/family education for diagnosis, treatment plan, review of pertinent medical information and discussion of care with specialty providers and PCP. Dietary Evaluation Review Comments: 1. Refer to CDE on DC for weight management 2. Continue current plan of care Expected Outcomes/Goals: To meet >75% estimated needs Fu 3-5 days Plan discussed with: Patient XIOMY JERONIMO MD Nov 19, 2024 22:59
[2024-11-20] VITALS (45 sets, daily range): BP systolic 78–115; BP diastolic 53–84; PULSE 97–119; RESP 10–32; TEMP 97.5–98.1; O2SAT 92–97
[2024-11-20 06:27] LABS: Hematocrit 45.6 % (41.0-53.0); Hemoglobin 15.5 g/dL (13.5-17.5); Mean Corpuscular Hemoglobin 31.3 pg (28.0-32.0); Mean Corpuscular Volume 92.3 fL (80.0-100.0); Nucleated Red Blood Cells % 0.2 %
[2024-11-20 06:36] LABS: Anion Gap 10 (5-15); Potassium 4.2 mmol/L (3.5-5.1)
[2024-11-20 06:37] LABS: Calcium 10.3 mg/dL (8.7-10.4); Carbon Dioxide 36 mmol/L (20-31); Chloride 84 mmol/L (98-107); Sodium 130 mmol/L (136-145)
[2024-11-20 06:42] LABS: BUN/Creatinine Ratio 37.2 (10.0-20.0)
[2024-11-20 06:50] LABS: Blood Urea Nitrogen 67 mg/dL (9-23); Glucose 145 mg/dL (74-106)
--- NOTE | 2024-11-20 10:41 | DVHPN2 ---
Progress Note Date Seen: Nov 20, 2024 Medical Necessity Reason Pt with a Central, PICC or Fol: Yes The following are medically ne: Dean Catheter Reason for dean catheter: Bladder Retention/Obstruc, Strict I&O Subjective Patient reports: No new complaints Objective vital signs Vital Sign Date Time Temp Pulse Resp B/P (MAP) Pulse Ox O2 Delivery O2 Flow Rate FiO2 11/20/24 10:30 118 13 112/70 (84) 95 11/20/24 10:00 Nasal Cannula* 2 28 11/20/24 08:00 97.5 97.5 Total Intake and Output 11/19/24 11/19/24 11/20/24 15:00 23:00 07:00 Intake Total 536 ml 1131.0 ml 52.8 ml Output Total 750 ml 250 ml Balance 536 ml 381.0 ml -197.2 ml medications Current Medications Medications Dose Ordered Sig/Nadia Route Start Time Stop Time Status Last Admin Dose Admin Vancomycin HCl 250 ml @ 200 mls/hr Q12H IV 10/08/24 14:00 UNV Pantoprazole Sodium 40 mg DAILY@0600 PO 10/26/24 06:00 11/20/24 06:03 40 MG Apixaban 5 mg BID PO 10/29/24 22:00 11/20/24 09:18 5 MG Diphenhydramine HCl 50 mg QHSP PRN IV 11/03/24 16:30 Norepinephrine Bitartrate 250 ml @ 3.75 mls/hr Q24H IV 11/10/24 00:00 11/14/24 00:00 5.625 MLS/HR Enteral Nutritional Formula 240 ml TIDWM PO 11/11/24 18:00 11/20/24 08:00 240 ML Amiodarone HCl 200 mg Q12HR PO 11/13/24 22:00 11/20/24 09:15 200 MG Sodium Chloride 10 ml QSHIFT@10,22 IV 11/13/24 22:00 11/20/24 09:18 10 ML Furosemide 100 mg/ Sodium Chloride 110 ml @ 6.6 mls/hr [id number] IV 11/15/24 16:15 11/20/24 09:57 6.6 MLS/HR Acetaminophen 650 mg Q4HP PRN PO 11/16/24 11:00 11/16/24 11:57 650 MG Spironolactone 12.5 mg DAILY PO 11/17/24 10:00 11/20/24 09:18 12.5 MG Examination: GENERAL:Normal, CVS:Abnormal laboratory and microbiology Laboratory Tests 11/20/24 05:00 Test 11/20/24 05:00 Range/Units Serum Glucose 145 H 74-106 mg/dL Microbiology Date/Time Source Procedure Growth Status 11/10/24 00:25 Urine - Dean Port Urine Culture - Final Complete 11/09/24 23:59 Nose MRSA Screen - Final Complete 10/23/24 11:25 Pleural Fluid Gram Stain - Final Complete 10/23/24 11:25 Pleural Fluid Aerobic Culture - Final Complete 10/05/24 19:19 Blood Blood Culture - Final NO GROWTH AFTER 5 DAYS OF INCUBATION. Complete Problem List/Assessment/Plan Problem List/Assessment/Plan 64 year old male w/ no previous medical followup admitted to hospital with sob diagnosed w/ new onset CHF EF 15% and transferred to ICU for Afib RVR Acute kidney injury due to hypotension/cardiorenal etiology ckd cr 1.1 on admission severe systolic HF EF 15% AFib with RVR Shock cardiogenic pericardial effusion afib RVR Hyponatremia Hypokalemia Currently he is on Lasix drip aldactone goal slight negative daily balance restrict fluids , eat solids and reduce water fluid restriction Sodium , potassium, Mg monitoring daily high risk for cardiac arrest cardiology pending HLOC for impala after insurance approval overall no changes in treatment plan at this time Plan discussed with: Patient Dietary Evaluation Review Comments: 1. Refer to CDE on DC for weight management 2. Continue current plan of care Expected Outcomes/Goals: To meet >75% estimated needs Fu 3-5 days Total Time (mins): 33 HUONG SHEPPARD MD Nov 20, 2024 10:41
--- NOTE | 2024-11-20 13:21 | DVHPN2 ---
Assessment/Plan Assessment/Plan progress note 64 M with HFrEF 15%, afib on Eliquis, recurrent PLEF, morbid obesity with prolonged ICU and medsurge admission. [facility] accepted pending insurance. iso pressor recs, leukocytosis, will reintroduce iv abx coverage with cefepime. improving kidney function, adequate diuresis on drips. seen today during rounds. pending HLOC transfer for LVAD, c/w lasix drip. stable. downgrade to HUMBLE Physical exam obese aox4 JVD cannot be observed MMM PERLLA mild crackles s1 s2 irregular abdomen soft b/l LE edema Labs ekg imaging reviewed Assessment and plan Acute CHF exacerbation with systolic dysfunction Heart failure with reduced ejection fraction 15% Pericardial effusion not in tamponade Recurrent pleural effusion s/p throacentesis AFib with RVR , currently rate controlled Acute kidney injury 2/2 VMN now CKD 3b History of alcoholism Morbid obesity class I OHS/JEN with chronic CO2 retention Hypotension on midodrine Pericardial effusion Persistent hypokalemia dc diamox switch to bumex aim for -500 daily now on lasix drip failed conversion to po, will reattempt on a later date amio for rate control potassium replacement scheduled, hold today midodrine s/p dobu and dopa (ectopy, dcd) lifevest bedside c/w Eliquis and asa pt protonix restart abx coverage with cefepime, no alergies noted wound consult diet mech soft dvt ppx on eliquis full code poor prognosis Plan discussed with: Patient My Orders Orders - IDALMIS DIAZ MD Procedure Category Date Status Time Basic Metabolic Panel LAB 11/21/24 Verified 04:00 Complete Blood Count LAB 11/21/24 Verified 04:00 Phosphorus LAB 11/21/24 Verified 04:00 Magnesium LAB 11/21/24 Verified 04:00 Date of Service: Nov 20, 2024 Billing Provider: IDALMIS DIAZ MD Common Visit Codes: [id number] INP/OBS CARE(HIGH) IDALMIS DIAZ MD Nov 20, 2024 13:21
--- NOTE | 2024-11-20 15:59 | DVHPN2 ---
Progress Note - Dictate Date Seen: Nov 20, 2024 Medical Necessity Reason Pt with a Central, PICC or Fol: Yes The following are medically ne: Dean Catheter Reason for dean catheter: Bladder Retention/Obstruc, Strict I&O Subjective Patient was seen and evaluated in follow up in the ICU. No overnight events. Patient is on 2 LPM NC. Patient is pending HLOC transfer for [facility] after insurance approval. 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 vital signs Vital Sign Date Time Temp Pulse Resp B/P (MAP) Pulse Ox O2 Delivery O2 Flow Rate FiO2 11/20/24 15:00 117 11 93/63 (73) 94 11/20/24 14:00 Nasal Cannula* 2 28 11/20/24 12:00 98.1 98.1 Total Intake and Output 11/19/24 11/19/24 11/20/24 15:00 23:00 07:00 Intake Total 536 ml 1131.0 ml 52.8 ml Output Total 750 ml 250 ml Balance 536 ml 381.0 ml -197.2 ml medications Current Medications Medications Dose Ordered Sig/Nadia Route Start Time Stop Time Status Last Admin Dose Admin Vancomycin HCl 250 ml @ 200 mls/hr Q12H IV 10/08/24 14:00 UNV Pantoprazole Sodium 40 mg DAILY@0600 PO 10/26/24 06:00 11/20/24 06:03 40 MG Apixaban 5 mg BID PO 10/29/24 22:00 11/20/24 09:18 5 MG Diphenhydramine HCl 50 mg QHSP PRN IV 11/03/24 16:30 Norepinephrine Bitartrate 250 ml @ 3.75 mls/hr Q24H IV 11/10/24 00:00 11/14/24 00:00 5.625 MLS/HR Enteral Nutritional Formula 240 ml TIDWM PO 11/11/24 18:00 11/20/24 12:00 240 ML Amiodarone HCl 200 mg Q12HR PO 11/13/24 22:00 11/20/24 09:15 200 MG Sodium Chloride 10 ml QSHIFT@10,22 IV 11/13/24 22:00 11/20/24 09:18 10 ML Furosemide 100 mg/ Sodium Chloride 110 ml @ 6.6 mls/hr [id number] IV 11/15/24 16:15 11/20/24 09:57 6.6 MLS/HR Acetaminophen 650 mg Q4HP PRN PO 11/16/24 11:00 11/16/24 11:57 650 MG Spironolactone 12.5 mg DAILY PO 11/17/24 10:00 11/20/24 09:18 12.5 MG objective GENERAL: Alert and oriented x 3. No acute distress. Morbidly obese. EYES: PERRL, EOMI. Anicteric. HENT: Moist mucous membranes. LUNGS: Diminished breath sounds. CARDIOVASCULAR: Irregular rate and rhythm. ABDOMEN: Soft, nontender and nondistended. EXTREMITIES: +3 pitting edema. NEUROLOGIC: No focal neurological deficits. SKIN: Warm, dry. laboratory and microbiology Laboratory Tests 11/20/24 05:00 Test 11/20/24 05:00 Range/Units Serum Glucose 145 H 74-106 mg/dL Problem List Atrial fibrillation with rapid ventricular response, newly diagnosed. Left pleural effusion. Sepsis. Hyperkalemia. Acute kidney injury. Transaminitis. Prediabetes. History of alcoholism. Morbidly obese. Severe systolic HF EF 15%, large pleural effusions. Pericardial effusion. Assessment/Plan Continued all current supportive medical care. Amiodarone. Eliquis. Diuretics with Lasix. Vasopressors for hemodynamic support. GI prophylactics. Additional plan as per the hospital course. Critical care time of 45 minutes provided to include time spent evaluation of patient at bedside, when appropriate patient/family education for diagnosis, treatment plan, review of pertinent medical information and discussion of care with specialty providers and PCP. Dietary Evaluation Review Comments: 1. Refer to CDE on DC for weight management 2. Continue current plan of care Expected Outcomes/Goals: To meet >75% estimated needs Fu 3-5 days Plan discussed with: Patient XIOMY JERONIMO MD Nov 20, 2024 15:59
[2024-11-21] VITALS (54 sets, daily range): BP systolic 81–113; BP diastolic 48–79; PULSE 91–119; RESP 9–22; TEMP 97–98; O2SAT 83–97
[2024-11-21 06:17] LABS: Hematocrit 44.7 % (41.0-53.0); Hemoglobin 15.2 g/dL (13.5-17.5); Mean Corpuscular Hemoglobin 31.5 pg (28.0-32.0); Mean Corpuscular Volume 92.5 fL (80.0-100.0); Nucleated Red Blood Cells % 0.1 %
[2024-11-21 06:28] LABS: Potassium 3.8 mmol/L (3.5-5.1)
[2024-11-21 06:29] LABS: Anion Gap 9 (5-15); Calcium 10.2 mg/dL (8.7-10.4)
[2024-11-21 06:34] LABS: BUN/Creatinine Ratio 40.2 (10.0-20.0)
[2024-11-21 06:47] LABS: Blood Urea Nitrogen 68 mg/dL (9-23); Carbon Dioxide 36 mmol/L (20-31); Chloride 86 mmol/L (98-107); Glucose 126 mg/dL (74-106); Magnesium 2.9 mg/dL (1.6-2.6); Sodium 131 mmol/L (136-145)
--- NOTE | 2024-11-21 14:59 | DVHPN2 ---
Progress Note Date Seen: Nov 21, 2024 Medical Necessity Reason Pt with a Central, PICC or Fol: Yes The following are medically ne: Dean Catheter Reason for dean catheter: Bladder Retention/Obstruc, Strict I&O Subjective Patient reports: No new complaints Changes from previous H/P or p: No Changes Objective vital signs Vital Sign Date Time Temp Pulse Resp B/P (MAP) Pulse Ox O2 Delivery O2 Flow Rate FiO2 11/21/24 13:00 99 11 92/73 (79) 94 11/21/24 12:00 97.6 97.6 11/21/24 12:00 Nasal Cannula* 2 28 Total Intake and Output 11/20/24 11/20/24 11/21/24 15:00 23:00 07:00 Intake Total 172.8 ml 412.8 ml 302.8 ml Output Total 900 ml 800 ml Balance 172.8 ml -487.2 ml -497.2 ml medications Current Medications Medications Dose Ordered Sig/Nadia Route Start Time Stop Time Status Last Admin Dose Admin Vancomycin HCl 250 ml @ 200 mls/hr Q12H IV 10/08/24 14:00 UNV Pantoprazole Sodium 40 mg DAILY@0600 PO 10/26/24 06:00 11/21/24 05:42 40 MG Apixaban 5 mg BID PO 10/29/24 22:00 11/21/24 10:08 5 MG Diphenhydramine HCl 50 mg QHSP PRN IV 11/03/24 16:30 Norepinephrine Bitartrate 250 ml @ 3.75 mls/hr Q24H IV 11/10/24 00:00 11/14/24 00:00 5.625 MLS/HR Enteral Nutritional Formula 240 ml TIDWM PO 11/11/24 18:00 11/21/24 08:00 240 ML Amiodarone HCl 200 mg Q12HR PO 11/13/24 22:00 11/21/24 10:09 200 MG Sodium Chloride 10 ml QSHIFT@10,22 IV 11/13/24 22:00 11/21/24 10:09 10 ML Furosemide 100 mg/ Sodium Chloride 110 ml @ 6.6 mls/hr [id number] IV 11/15/24 16:15 11/21/24 01:04 6.6 MLS/HR Acetaminophen 650 mg Q4HP PRN PO 11/16/24 11:00 11/16/24 11:57 650 MG Spironolactone 12.5 mg DAILY PO 11/17/24 10:00 11/21/24 10:09 12.5 MG Examination: GENERAL:Normal, CVS:Normal laboratory and microbiology Laboratory Tests 11/21/24 04:40 Test 11/21/24 04:40 Range/Units Serum Glucose 126 H 74-106 mg/dL Microbiology Date/Time Source Procedure Growth Status 11/10/24 00:25 Urine - Dean Port Urine Culture - Final Complete 11/09/24 23:59 Nose MRSA Screen - Final Complete 10/23/24 11:25 Pleural Fluid Gram Stain - Final Complete 10/23/24 11:25 Pleural Fluid Aerobic Culture - Final Complete 10/05/24 19:19 Blood Blood Culture - Final NO GROWTH AFTER 5 DAYS OF INCUBATION. Complete Problem List/Assessment/Plan Problem List/Assessment/Plan 64 year old male w/ no previous medical followup admitted to hospital with sob diagnosed w/ new onset CHF EF 15% and transferred to ICU for Afib RVR Acute kidney injury due to hypotension/cardiorenal etiology ckd cr 1.1 on admission severe systolic HF EF 15% AFib with RVR Shock cardiogenic pericardial effusion afib RVR Hyponatremia Hypokalemia Currently he is on Lasix drip aldactone goal slight negative daily balance restrict fluids , eat solids and reduce water fluid restriction Sodium , potassium, Mg monitoring daily high risk for cardiac arrest cardiology pending HLOC for impala after insurance approval overall no changes in treatment plan at this time Plan discussed with: Patient Dietary Evaluation Review Comments: 1. Refer to CDE on DC for weight management 2. Continue current plan of care Expected Outcomes/Goals: To meet >75% estimated needs Fu 3-5 days Total Time (mins): 33 HUONG SHEPPARD MD Nov 21, 2024 14:59
[2024-11-21] MEDS: NYSTATIN (MOUTH-THROAT) 500,000 UNITS/5 ML SUSP MT SCH (18:00)
--- NOTE | 2024-11-21 23:55 | DVHPN2 ---
Progress Note - Dictate Date Seen: Nov 21, 2024 Medical Necessity Reason Pt with a Central, PICC or Fol: Yes The following are medically ne: Dean Catheter Reason for dean catheter: Bladder Retention/Obstruc, Strict I&O Subjective Patient was seen and evaluated in follow up in the ICU. Patient is on 2 LPM NC. 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 HLOC transfer is pending. vital signs Vital Sign Date Time Temp Pulse Resp B/P (MAP) Pulse Ox O2 Delivery O2 Flow Rate FiO2 11/21/24 13:00 99 11 92/73 (79) 94 11/21/24 12:00 97.6 97.6 11/21/24 12:00 Nasal Cannula* 2 28 Total Intake and Output 11/20/24 11/20/24 11/21/24 14:59 22:59 06:59 Intake Total 172.8 ml 412.8 ml 302.8 ml Output Total 900 ml 800 ml Balance 172.8 ml -487.2 ml -497.2 ml medications Current Medications Medications Dose Ordered Sig/Nadia Route Start Time Stop Time Status Last Admin Dose Admin Vancomycin HCl 250 ml @ 200 mls/hr Q12H IV 10/08/24 14:00 UNV Pantoprazole Sodium 40 mg DAILY@0600 PO 10/26/24 06:00 11/21/24 05:42 40 MG Apixaban 5 mg BID PO 10/29/24 22:00 11/21/24 10:08 5 MG Diphenhydramine HCl 50 mg QHSP PRN IV 11/03/24 16:30 Norepinephrine Bitartrate 250 ml @ 3.75 mls/hr Q24H IV 11/10/24 00:00 11/14/24 00:00 5.625 MLS/HR Enteral Nutritional Formula 240 ml TIDWM PO 11/11/24 18:00 11/21/24 08:00 240 ML Amiodarone HCl 200 mg Q12HR PO 11/13/24 22:00 11/21/24 10:09 200 MG Sodium Chloride 10 ml QSHIFT@10,22 IV 11/13/24 22:00 11/21/24 10:09 10 ML Furosemide 100 mg/ Sodium Chloride 110 ml @ 6.6 mls/hr [id number] IV 11/15/24 16:15 11/21/24 01:04 6.6 MLS/HR Acetaminophen 650 mg Q4HP PRN PO 11/16/24 11:00 11/16/24 11:57 650 MG Spironolactone 12.5 mg DAILY PO 11/17/24 10:00 11/21/24 10:09 12.5 MG objective GENERAL: Alert and oriented x 3. No acute distress. Morbidly obese. EYES: PERRL, EOMI. Anicteric. HENT: Moist mucous membranes. LUNGS: Diminished breath sounds. CARDIOVASCULAR: Irregular rate and rhythm. ABDOMEN: Soft, nontender and nondistended. EXTREMITIES: +3 pitting edema. NEUROLOGIC: No focal neurological deficits. SKIN: Warm, dry. laboratory and microbiology Laboratory Tests 11/21/24 04:40 Test 11/21/24 04:40 Range/Units Serum Glucose 126 H 74-106 mg/dL Problem List Atrial fibrillation with rapid ventricular response, newly diagnosed. Left pleural effusion. Sepsis. Hyperkalemia. Acute kidney injury. Transaminitis. Prediabetes. History of alcoholism. Morbidly obese. Severe systolic HF EF 15%, large pleural effusions. Pericardial effusion. Assessment/Plan Continued all current supportive medical care. Amiodarone. Aldactone. Eliquis. Diuretics with Lasix. GI prophylactics. Additional plan as per the hospital course. Critical care time of 45 minutes provided to include time spent evaluation of patient at bedside, when appropriate patient/family education for diagnosis, treatment plan, review of pertinent medical information and discussion of care with specialty providers and PCP. Dietary Evaluation Review Comments: 1. Refer to CDE on DC for weight management 2. Continue current plan of care Expected Outcomes/Goals: To meet >75% estimated needs Fu 3-5 days Plan discussed with: Patient XIOMY JERONIMO MD Nov 21, 2024 14:39
[2024-11-22] VITALS (66 sets, daily range): BP systolic 85–111; BP diastolic 54–83; PULSE 98–119; RESP 10–29; TEMP 97–97.9; O2SAT 91–95
[2024-11-22 05:32] LABS: Hematocrit 47.3 % (41.0-53.0); Hemoglobin 15.8 g/dL (13.5-17.5); Mean Corpuscular Hemoglobin 30.9 pg (28.0-32.0); Mean Corpuscular Volume 92.7 fL (80.0-100.0); Nucleated Red Blood Cells % 0.1 %
[2024-11-22 05:41] LABS: Potassium 4.1 mmol/L (3.5-5.1)
[2024-11-22 05:42] LABS: Anion Gap 10 (5-15); Calcium 9.6 mg/dL (8.7-10.4); Carbon Dioxide 34 mmol/L (20-31); Chloride 87 mmol/L (98-107); Sodium 131 mmol/L (136-145)
[2024-11-22 05:48] LABS: BUN/Creatinine Ratio 45.3 (10.0-20.0)
[2024-11-22 05:49] LABS: Blood Urea Nitrogen 72 mg/dL (9-23); Glucose 158 mg/dL (74-106)
--- NOTE | 2024-11-22 12:04 | DVHPN2 ---
Progress Note Date Seen: Nov 22, 2024 Medical Necessity Reason Pt with a Central, PICC or Fol: Yes The following are medically ne: Dean Catheter Reason for dean catheter: Bladder Retention/Obstruc, Strict I&O Subjective Changes from previous H/P or p: No Changes Objective vital signs Vital Sign Date Time Temp Pulse Resp B/P (MAP) Pulse Ox O2 Delivery O2 Flow Rate FiO2 11/22/24 11:30 113 13 104/71 (82) 92 11/22/24 08:00 97.2 97.2 11/22/24 08:00 Nasal Cannula* 2 28 Total Intake and Output 11/21/24 11/21/24 11/22/24 15:00 23:00 07:00 Intake Total 52.8 ml 772.8 ml 292.8 ml Output Total 750 ml Balance 52.8 ml 772.8 ml -457.2 ml medications Current Medications Medications Dose Ordered Sig/Nadia Route Start Time Stop Time Status Last Admin Dose Admin Vancomycin HCl 250 ml @ 200 mls/hr Q12H IV 10/08/24 14:00 UNV Pantoprazole Sodium 40 mg DAILY@0600 PO 10/26/24 06:00 11/22/24 05:41 40 MG Apixaban 5 mg BID PO 10/29/24 22:00 11/22/24 09:56 5 MG Diphenhydramine HCl 50 mg QHSP PRN IV 11/03/24 16:30 Norepinephrine Bitartrate 250 ml @ 3.75 mls/hr Q24H IV 11/10/24 00:00 11/14/24 00:00 5.625 MLS/HR Enteral Nutritional Formula 240 ml TIDWM PO 11/11/24 18:00 11/22/24 08:00 240 ML Amiodarone HCl 200 mg Q12HR PO 11/13/24 22:00 11/22/24 09:56 200 MG Sodium Chloride 10 ml QSHIFT@10,22 IV 11/13/24 22:00 11/22/24 09:57 10 ML Furosemide 100 mg/ Sodium Chloride 110 ml @ 6.6 mls/hr [id number] IV 11/15/24 16:15 11/22/24 05:11 6.6 MLS/HR Acetaminophen 650 mg Q4HP PRN PO 11/16/24 11:00 11/16/24 11:57 650 MG Spironolactone 12.5 mg DAILY PO 11/17/24 10:00 11/22/24 09:57 12.5 MG Nystatin 5 ml QID MT 11/21/24 18:00 11/24/24 17:59 11/22/24 05:41 5 ML laboratory and microbiology Laboratory Tests 11/22/24 04:50 Test 11/22/24 04:50 Range/Units Serum Glucose 158 H 74-106 mg/dL Microbiology Date/Time Source Procedure Growth Status 11/10/24 00:25 Urine - Dean Port Urine Culture - Final Complete 11/09/24 23:59 Nose MRSA Screen - Final Complete 10/23/24 11:25 Pleural Fluid Gram Stain - Final Complete 10/23/24 11:25 Pleural Fluid Aerobic Culture - Final Complete 10/05/24 19:19 Blood Blood Culture - Final NO GROWTH AFTER 5 DAYS OF INCUBATION. Complete Problem List/Assessment/Plan Problem List/Assessment/Plan 64 year old male w/ no previous medical followup admitted to hospital with sob diagnosed w/ new onset CHF EF 15% and transferred to ICU for Afib RVR Acute kidney injury due to hypotension/cardiorenal etiology ckd cr 1.1 on admission severe systolic HF EF 15% AFib with RVR Shock cardiogenic pericardial effusion afib RVR Hyponatremia Hypokalemia Currently he is on Lasix drip aldactone goal slight negative daily balance restrict fluids , eat solids and reduce water fluid restriction Sodium , potassium, Mg monitoring daily high risk for cardiac arrest cardiology pending HLOC for impala after insurance approval overall no changes in treatment plan at this time Plan discussed with: Patient Dietary Evaluation Review Comments: 1. Refer to CDE on DC for weight management 2. Continue current plan of care Expected Outcomes/Goals: To meet >75% estimated needs Fu 3-5 days Total Time (mins): 26 HUONG SHEPPARD MD Nov 22, 2024 12:03
--- NOTE | 2024-11-22 14:05 | DVHPN2 ---
Assessment/Plan Assessment/Plan progress note 64 M with HFrEF 15%, afib on Eliquis, recurrent PLEF, morbid obesity with prolonged ICU and medsurge admission. [facility] accepted pending insurance. iso pressor recs, leukocytosis, will reintroduce iv abx coverage with cefepime. improving kidney function, adequate diuresis on drips. seen today, pending HLOC for LVAD. medical active. ROM exercise. encourage oral feeding Physical exam obese aox4 JVD cannot be observed dry MM PERLLA mild crackles s1 s2 irregular abdomen soft b/l LE edema Labs ekg imaging reviewed Assessment and plan Acute CHF exacerbation with systolic dysfunction Heart failure with reduced ejection fraction 15% Pericardial effusion not in tamponade Recurrent pleural effusion s/p throacentesis AFib with RVR , currently rate controlled Acute kidney injury 2/2 VMN now CKD 3b History of alcoholism Morbid obesity class I OHS/JEN with chronic CO2 retention Hypotension on midodrine Pericardial effusion Persistent hypokalemia dc diamox switch to bumex aim for -500 daily now on lasix drip failed conversion to po, will reattempt on a later date amio for rate control potassium replacement scheduled, hold today midodrine s/p dobu and dopa (ectopy, dcd) lifevest bedside c/w Eliquis and asa pt protonix restart abx coverage with cefepime, no alergies noted wound consult nystatin swish and swallow diet mech soft dvt ppx on eliquis full code poor prognosis Plan discussed with: Patient My Orders Orders - IDALMIS DIAZ MD Procedure Category Date Status Time Nystatin PHA 11/21/24 In Process (Mouth-Throat) 18:00 Communication Order ORDERS 11/21/24 Transmitted 15:14 * Salvage Repairer CONS 11/21/24 Transmitted Consult Date of Service: Nov 22, 2024 Billing Provider: IDALMIS DIAZ MD Common Visit Codes: [id number] INP/OBS CARE(HIGH) IDALMIS DIAZ MD Nov 22, 2024 14:05
[2024-11-23] VITALS (30 sets, daily range): BP systolic 87–113; BP diastolic 55–82; PULSE 102–120; RESP 13–27; TEMP 97.2–97.9; O2SAT 88–93
--- NOTE | 2024-11-23 00:09 | DVHPN2 ---
Progress Note - Dictate Date Seen: Nov 22, 2024 Medical Necessity Reason Pt with a Central, PICC or Fol: Yes The following are medically ne: Dean Catheter Reason for dean catheter: Bladder Retention/Obstruc, Strict I&O Subjective Patient was seen and evaluated in follow up in the ICU. Patient is stable on 2 LPM NC. 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 Patient still pending transfer to [facility]. vital signs Vital Sign Date Time Temp Pulse Resp B/P (MAP) Pulse Ox O2 Delivery O2 Flow Rate FiO2 11/22/24 12:00 97.1 119 16 105/70 (82) 92 97.1 11/22/24 12:00 Nasal Cannula* 2 28 Total Intake and Output 11/21/24 11/21/24 11/22/24 15:00 23:00 07:00 Intake Total 52.8 ml 772.8 ml 292.8 ml Output Total 750 ml Balance 52.8 ml 772.8 ml -457.2 ml medications Current Medications Medications Dose Ordered Sig/Nadia Route Start Time Stop Time Status Last Admin Dose Admin Vancomycin HCl 250 ml @ 200 mls/hr Q12H IV 10/08/24 14:00 UNV Pantoprazole Sodium 40 mg DAILY@0600 PO 10/26/24 06:00 11/22/24 05:41 40 MG Apixaban 5 mg BID PO 10/29/24 22:00 11/22/24 09:56 5 MG Diphenhydramine HCl 50 mg QHSP PRN IV 11/03/24 16:30 Norepinephrine Bitartrate 250 ml @ 3.75 mls/hr Q24H IV 11/10/24 00:00 11/14/24 00:00 5.625 MLS/HR Enteral Nutritional Formula 240 ml TIDWM PO 11/11/24 18:00 11/22/24 12:55 240 ML Amiodarone HCl 200 mg Q12HR PO 11/13/24 22:00 11/22/24 09:56 200 MG Sodium Chloride 10 ml QSHIFT@10,22 IV 11/13/24 22:00 11/22/24 09:57 10 ML Furosemide 100 mg/ Sodium Chloride 110 ml @ 6.6 mls/hr [id number] IV 11/15/24 16:15 11/22/24 05:11 6.6 MLS/HR Acetaminophen 650 mg Q4HP PRN PO 11/16/24 11:00 11/16/24 11:57 650 MG Spironolactone 12.5 mg DAILY PO 11/17/24 10:00 11/22/24 09:57 12.5 MG Nystatin 5 ml QID MT 11/21/24 18:00 11/24/24 17:59 11/22/24 05:41 5 ML objective GENERAL: Alert and oriented x 3. No acute distress. Morbidly obese. EYES: PERRL, EOMI. Anicteric. HENT: Moist mucous membranes. LUNGS: Diminished breath sounds. CARDIOVASCULAR: Irregular rate and rhythm. ABDOMEN: Soft, nontender and nondistended. EXTREMITIES: +3 pitting edema. NEUROLOGIC: No focal neurological deficits. SKIN: Warm, dry. laboratory and microbiology Laboratory Tests 11/22/24 04:50 Test 11/22/24 04:50 Range/Units Serum Glucose 158 H 74-106 mg/dL Problem List Atrial fibrillation with rapid ventricular response, newly diagnosed. Left pleural effusion. Sepsis. Hyperkalemia. Acute kidney injury. Transaminitis. Prediabetes. History of alcoholism. Morbidly obese. Severe systolic HF EF 15%, large pleural effusions. Pericardial effusion. Assessment/Plan Continued all current supportive medical care. Amiodarone. Aldactone. Eliquis. Diuretics with Lasix. GI prophylactics. Additional plan as per the hospital course. Critical care time of 45 minutes provided to include time spent evaluation of patient at bedside, when appropriate patient/family education for diagnosis, treatment plan, review of pertinent medical information and discussion of care with specialty providers and PCP. Dietary Evaluation Review Comments: 1. Refer to CDE on DC for weight management 2. Continue current plan of care Expected Outcomes/Goals: To meet >75% estimated needs Fu 3-5 days Plan discussed with: Patient XIOMY JERONIMO MD Nov 22, 2024 13:27
[2024-11-23 05:45] LABS: Hematocrit 46.3 % (41.0-53.0); Hemoglobin 15.6 g/dL (13.5-17.5); Mean Corpuscular Hemoglobin 31.2 pg (28.0-32.0); Mean Corpuscular Volume 92.9 fL (80.0-100.0); Nucleated Red Blood Cells % 0.0 %
[2024-11-23 05:50] LABS: Anion Gap 9 (5-15); Potassium 4.4 mmol/L (3.5-5.1)
[2024-11-23 05:51] LABS: Calcium 9.4 mg/dL (8.7-10.4)
[2024-11-23 05:56] LABS: BUN/Creatinine Ratio 43.5 (10.0-20.0)
[2024-11-23 06:00] LABS: Blood Urea Nitrogen 70 mg/dL (9-23); Carbon Dioxide 32 mmol/L (20-31); Chloride 88 mmol/L (98-107); Glucose 164 mg/dL (74-106); Sodium 129 mmol/L (136-145)
--- NOTE | 2024-11-23 10:35 | DVHPN2 ---
Progress Note - Dictate Date Seen: Nov 23, 2024 Medical Necessity Reason Pt with a Central, PICC or Fol: Yes The following are medically ne: Dean Catheter Reason for dean catheter: Bladder Retention/Obstruc, Strict I&O Subjective no significant events overnight vital signs Vital Sign Date Time Temp Pulse Resp B/P (MAP) Pulse Ox O2 Delivery O2 Flow Rate FiO2 11/23/24 06:00 18 92 Nasal Cannula* 2 28 11/23/24 05:30 111 103/62 (76) 11/23/24 04:00 97.9 97.9 Total Intake and Output 11/22/24 11/22/24 11/23/24 15:00 23:00 07:00 Intake Total 772.8 ml 279.6 ml 286.2 ml Output Total 450 ml 800 ml Balance 772.8 ml -170.4 ml -513.8 ml medications Current Medications Medications Dose Ordered Sig/Nadia Route Start Time Stop Time Status Last Admin Dose Admin Vancomycin HCl 250 ml @ 200 mls/hr Q12H IV 10/08/24 14:00 UNV Pantoprazole Sodium 40 mg DAILY@0600 PO 10/26/24 06:00 11/23/24 05:54 40 MG Apixaban 5 mg BID PO 10/29/24 22:00 11/22/24 22:03 5 MG Diphenhydramine HCl 50 mg QHSP PRN IV 11/03/24 16:30 Norepinephrine Bitartrate 250 ml @ 3.75 mls/hr Q24H IV 11/10/24 00:00 11/14/24 00:00 5.625 MLS/HR Enteral Nutritional Formula 240 ml TIDWM PO 11/11/24 18:00 11/23/24 08:26 240 ML Amiodarone HCl 200 mg Q12HR PO 11/13/24 22:00 11/22/24 22:03 200 MG Sodium Chloride 10 ml QSHIFT@10,22 IV 11/13/24 22:00 11/22/24 22:04 10 ML Furosemide 100 mg/ Sodium Chloride 110 ml @ 6.6 mls/hr [id number] IV 11/15/24 16:15 11/23/24 03:07 6.6 MLS/HR Acetaminophen 650 mg Q4HP PRN PO 11/16/24 11:00 11/16/24 11:57 650 MG Spironolactone 12.5 mg DAILY PO 11/17/24 10:00 11/22/24 09:57 12.5 MG Nystatin 5 ml QID MT 11/21/24 18:00 11/24/24 17:59 11/22/24 16:57 5 ML objective Gen: nad heent: nc/at, mmm lungs: Diminished breath sounds cvs: No rub abd: soft, bowel sounds audible ext: + edema laboratory and microbiology Laboratory Tests 11/23/24 05:16 Test 11/23/24 05:16 Range/Units Serum Glucose 164 H 74-106 mg/dL Assessment/Plan Acute kidney injury due to hypotension ckd cr 1.1 on admission severe systolic HF EF 15%, large pleural effusions s/p thoracentesis pericardial effusion afib RVR metabolic alkalosis will continue with current efforts at diuresis and target slight negative fluid balance cardiology pending HLOC for impala after insurance approval overall no changes in treatment plan at this time Dietary Evaluation Review Comments: 1. Refer to CDE on DC for weight management 2. Continue current plan of care Expected Outcomes/Goals: To meet >75% estimated needs Fu 3-5 days Plan discussed with: Other LEELA GERONIMO MD Nov 23, 2024 10:35
--- NOTE | 2024-11-23 11:14 | DVH ---
INDICATION: Resp Failure TECHNIQUE: Single frontal view of the chest was obtained COMPARISON: XY CHEST PORTABLE on DOS: 11/15/24, XY CHEST PORTABLE on DOS: 11/13/24, XY CHEST PORTABLE o n DOS: 11/10/24, XY CHEST XRAY 1 VIEW on DOS: 11/07/24, XY CHEST XRAY 1 VIEW on DOS: 11/03/24, XY CHEST PO RTABLE on DOS: 11/15/24 FINDINGS: Lines and Tubes: Right PICC is unchanged in position and the tip remains obscured. Lungs: Patchy bilateral airspace disease increased. Pleura: Bilateral pleural effusions, increased. No pneumothorax. Cardiomediastinal contours: Cardiomegaly. Bones: No acute osseous abnormality. IMPRESSION: No interval improvement.
--- NOTE | 2024-11-23 15:38 | DVHPN2 ---
Assessment/Plan Assessment/Plan progress note 64 M with HFrEF 15%, afib on Eliquis, recurrent PLEF, morbid obesity with prolonged ICU and medsurge admission. [facility] accepted pending insurance. iso pressor recs, leukocytosis, will reintroduce iv abx coverage with cefepime. improving kidney function, adequate diuresis on drips. seen today, pending HLOC for transplant Physical exam obese aox4 JVD cannot be observed dry MM PERLLA mild crackles s1 s2 irregular abdomen soft b/l LE edema Labs ekg imaging reviewed Assessment and plan Acute CHF exacerbation with systolic dysfunction Heart failure with reduced ejection fraction 15% Pericardial effusion not in tamponade Recurrent pleural effusion s/p throacentesis AFib with RVR , currently rate controlled Acute kidney injury 2/2 VMN now CKD 3b History of alcoholism Morbid obesity class I OHS/JEN with chronic CO2 retention Hypotension on midodrine Pericardial effusion Persistent hypokalemia dc diamox switch to bumex aim for -500 daily now on lasix drip failed conversion to po, will reattempt on a later date amio for rate control potassium replacement scheduled, hold today midodrine s/p dobu and dopa (ectopy, dcd) lifevest bedside c/w Eliquis and asa pt protonix restart abx coverage with cefepime, no alergies noted wound consult nystatin swish and swallow diet mech soft dvt ppx on eliquis full code poor prognosis Plan discussed with: Patient My Orders Orders - IDALMIS DIAZ MD Procedure Category Date Status Time Urine Bacterial JOSY 11/23/24 Uncollected Culture 13:53 Date of Service: Nov 23, 2024 Billing Provider: IDALMIS DIAZ MD Common Visit Codes: [id number] INP/OBS CARE(HIGH) IDALMIS DIAZ MD Nov 23, 2024 15:37
[2024-11-23 20:25] LABS: Urine Budding Yeast OCCASIONAL /hpf (None Seen); Urine Protein, UAD Negative (Negative)
--- NOTE | 2024-11-23 23:43 | DVHPN2 ---
Progress Note - Dictate Date Seen: Nov 23, 2024 Medical Necessity Reason Pt with a Central, PICC or Fol: Yes The following are medically ne: Dean Catheter Reason for dean catheter: Bladder Retention/Obstruc, Strict I&O Subjective Patient was seen and evaluated in follow up in the ICU. No overnight events. Patient is on 2 LPM NC. CM is working on HLOC transfer. vital signs Vital Sign Date Time Temp Pulse Resp B/P (MAP) Pulse Ox O2 Delivery O2 Flow Rate FiO2 11/23/24 12:00 109 11/23/24 06:00 18 92 Nasal Cannula* 2 28 11/23/24 05:30 103/62 (76) 11/23/24 04:00 97.9 97.9 Total Intake and Output 11/22/24 11/22/24 11/23/24 15:00 23:00 07:00 Intake Total 772.8 ml 279.6 ml 286.2 ml Output Total 450 ml 800 ml Balance 772.8 ml -170.4 ml -513.8 ml medications Current Medications Medications Dose Ordered Sig/Nadia Route Start Time Stop Time Status Last Admin Dose Admin Vancomycin HCl 250 ml @ 200 mls/hr Q12H IV 10/08/24 14:00 UNV Pantoprazole Sodium 40 mg DAILY@0600 PO 10/26/24 06:00 11/23/24 05:54 40 MG Apixaban 5 mg BID PO 10/29/24 22:00 11/23/24 10:57 5 MG Diphenhydramine HCl 50 mg QHSP PRN IV 11/03/24 16:30 Norepinephrine Bitartrate 250 ml @ 3.75 mls/hr Q24H IV 11/10/24 00:00 11/14/24 00:00 5.625 MLS/HR Enteral Nutritional Formula 240 ml TIDWM PO 11/11/24 18:00 11/23/24 08:26 240 ML Amiodarone HCl 200 mg Q12HR PO 11/13/24 22:00 11/23/24 10:56 200 MG Sodium Chloride 10 ml QSHIFT@10,22 IV 11/13/24 22:00 11/23/24 10:57 10 ML Furosemide 100 mg/ Sodium Chloride 110 ml @ 6.6 mls/hr [id number] IV 11/15/24 16:15 11/23/24 03:07 6.6 MLS/HR Acetaminophen 650 mg Q4HP PRN PO 11/16/24 11:00 11/16/24 11:57 650 MG Spironolactone 12.5 mg DAILY PO 11/17/24 10:00 11/23/24 10:57 12.5 MG Nystatin 5 ml QID MT 11/21/24 18:00 11/24/24 17:59 11/22/24 16:57 5 ML objective GENERAL: Alert and oriented x 3. No acute distress. Morbidly obese. EYES: PERRL, EOMI. Anicteric. HENT: Moist mucous membranes. LUNGS: Diminished breath sounds. CARDIOVASCULAR: Irregular rate and rhythm. ABDOMEN: Soft, nontender and nondistended. EXTREMITIES: +3 pitting edema. NEUROLOGIC: No focal neurological deficits. SKIN: Warm, dry. laboratory and microbiology Laboratory Tests 11/23/24 05:16 Test 11/23/24 05:16 Range/Units Serum Glucose 164 H 74-106 mg/dL Problem List Atrial fibrillation with rapid ventricular response, newly diagnosed. Left pleural effusion. Sepsis. Hyperkalemia. Acute kidney injury. Transaminitis. Prediabetes. History of alcoholism. Morbidly obese. Severe systolic HF EF 15%, large pleural effusions. Pericardial effusion. Assessment/Plan Continued all current supportive medical care. Amiodarone. Aldactone. Eliquis. Diuretics with Lasix. GI prophylactics. Additional plan as per the hospital course. Critical care time of 45 minutes provided to include time spent evaluation of patient at bedside, when appropriate patient/family education for diagnosis, treatment plan, review of pertinent medical information and discussion of care with specialty providers and PCP. Dietary Evaluation Review Comments: 1. Refer to CDE on DC for weight management 2. Continue current plan of care Expected Outcomes/Goals: To meet >75% estimated needs Fu 3-5 days Plan discussed with: Patient XIOMY JERONIMO MD Nov 23, 2024 12:59
[2024-11-24] VITALS (35 sets, daily range): BP systolic 88–128; BP diastolic 55–76; PULSE 87–121; RESP 10–30; TEMP 96.3–98.1; O2SAT 88–98
--- NOTE | 2024-11-24 09:01 | DVHPN2 ---
Progress Note - Dictate Date Seen: Nov 24, 2024 Medical Necessity Reason Pt with a Central, PICC or Fol: Yes The following are medically ne: Dean Catheter Reason for dean catheter: Bladder Retention/Obstruc, Strict I&O Subjective Awake and alert this morning, patient's at bedside vital signs Vital Sign Date Time Temp Pulse Resp B/P (MAP) Pulse Ox O2 Delivery O2 Flow Rate FiO2 11/24/24 08:00 97.6 114 22 106/67 (80) 91 97.6 11/24/24 07:46 Nasal Cannula* 3 32 Total Intake and Output 11/23/24 11/23/24 11/24/24 15:00 23:00 07:00 Intake Total 52.8 ml 1052.8 ml 477.8 ml Output Total 900 ml 750 ml Balance 52.8 ml 152.8 ml -272.2 ml medications Current Medications Medications Dose Ordered Sig/Nadia Route Start Time Stop Time Status Last Admin Dose Admin Vancomycin HCl 250 ml @ 200 mls/hr Q12H IV 10/08/24 14:00 UNV Pantoprazole Sodium 40 mg DAILY@0600 PO 10/26/24 06:00 11/24/24 05:16 40 MG Apixaban 5 mg BID PO 10/29/24 22:00 11/24/24 07:55 5 MG Diphenhydramine HCl 50 mg QHSP PRN IV 11/03/24 16:30 Norepinephrine Bitartrate 250 ml @ 3.75 mls/hr Q24H IV 11/10/24 00:00 11/14/24 00:00 5.625 MLS/HR Enteral Nutritional Formula 240 ml TIDWM PO 11/11/24 18:00 11/24/24 07:31 240 ML Amiodarone HCl 200 mg Q12HR PO 11/13/24 22:00 11/24/24 05:15 200 MG Sodium Chloride 10 ml QSHIFT@10,22 IV 11/13/24 22:00 11/24/24 07:55 10 ML Furosemide 100 mg/ Sodium Chloride 110 ml @ 6.6 mls/hr [id number] IV 11/15/24 16:15 11/23/24 19:03 6.6 MLS/HR Acetaminophen 650 mg Q4HP PRN PO 11/16/24 11:00 11/16/24 11:57 650 MG Spironolactone 12.5 mg DAILY PO 11/17/24 10:00 11/24/24 07:55 12.5 MG Nystatin 5 ml QID MT 11/21/24 18:00 11/24/24 17:59 11/22/24 16:57 5 ML objective Gen: nad heent: nc/at, mmm lungs: Diminished breath sounds cvs: No rub abd: soft, bowel sounds audible ext: + edema laboratory and microbiology Laboratory Tests 11/23/24 05:16 Test 11/23/24 05:16 Range/Units Serum Glucose 164 H 74-106 mg/dL Assessment/Plan Acute kidney injury due to hypotension ckd cr 1.1 on admission severe systolic HF EF 15%, large pleural effusions s/p thoracentesis pericardial effusion afib RVR metabolic alkalosis - we will continue with Lasix drip, GFR stable - discussed plan of care with patient's . Dietary Evaluation Review Comments: 1. Refer to CDE on DC for weight management 2. Continue current plan of care Expected Outcomes/Goals: To meet >75% estimated needs Fu 3-5 days Plan discussed with: Patient, Spouse LEELA GERONIMO MD Nov 24, 2024 09:01
[2024-11-24 09:47] LABS: Hematocrit 46.9 % (41.0-53.0); Hemoglobin 15.7 g/dL (13.5-17.5); Mean Corpuscular Hemoglobin 31.1 pg (28.0-32.0); Mean Corpuscular Volume 93.2 fL (80.0-100.0); Nucleated Red Blood Cells % 0.0 %
[2024-11-24 10:01] LABS: Anion Gap 11 (5-15); Potassium 4.4 mmol/L (3.5-5.1)
[2024-11-24 10:02] LABS: Calcium 10.2 mg/dL (8.7-10.4)
[2024-11-24 10:04] LABS: Carbon Dioxide 33 mmol/L (20-31); Chloride 85 mmol/L (98-107); Sodium 129 mmol/L (136-145)
[2024-11-24 10:07] LABS: BUN/Creatinine Ratio 45.8 (10.0-20.0); Magnesium 2.6 mg/dL (1.6-2.6)
[2024-11-24 10:10] LABS: Blood Urea Nitrogen 76 mg/dL (9-23); Glucose 190 mg/dL (74-106)
--- NOTE | 2024-11-24 10:33 | DVH ---
CHEST RADIOGRAPH Indication: RESP FAILURE Technique: Single frontal view of the chest was obtained COMPARISON: XY CHEST PORTABLE on DOS: 11/23/24, XY CHEST PORTABLE on DOS: 11/15/24, XY CHEST PORTABLE o n DOS: 11/13/24, XY CHEST PORTABLE on DOS: 11/10/24, XY CHEST XRAY 1 VIEW on DOS: 11/07/24 FINDINGS: Lines and Tubes: Right PICC in satisfactory position. Lungs: Multifocal airspace disease. Pleura: Small right and moderate left pleural effusion. No pneumothorax. Cardiomediastinal contours: Unremarkable Bones: Unremarkable IMPRESSION: Unchanged pulmonary edema
[2024-11-24 11:32] LABS: Base Excess 6.1 mmol/L (-2.0-3.0)
--- NOTE | 2024-11-24 12:58 | DVHPN2 ---
Reviewed: Care Plan, H&P, Labs, Medications, Radiology Changes from previous H/P or p: No Changes General: Per HPI Eyes: No Pain, No Vision change, No Conjunctivae inflammation, No Eyelid inflammation, No Other, No Redness ENT: No Ear pain, No Ear discharge, No Nose pain, No Nose discharge, No Nose congestion, No Mouth pain, No Mouth swelling, No Throat pain, No Throat swelling, No Other Cardiovascular: Palpitations Respiratory: Shortness of breath Gastrointestinal: No Nausea, No Vomiting, No Abdominal Pain, No Diarrhea, No Constipation, No Melena, No Hematochezia, No Other Genitourinary: No Dysuria, No Frequency, No Incontinence, No Hematuria, No Retention, No Other Musculoskeletal: No other, No neck pain, No shoulder pain, No arm pain, No back pain, No hand pain, No leg pain, No foot pain Skin: No Rash, No Lesions, No Jaundice, No Bruising, No Other Objective Vitals Vital Signs Date Time Temp Pulse Resp B/P (MAP) Pulse Ox O2 Delivery O2 Flow Rate FiO2 11/24/24 12:00 116 13 89/65 (73) 90 11/24/24 11:46 Nasal Cannula* 8 N/A Oxymizer 11/24/24 08:00 97.6 97.6 Intake/Output Intake and Output 11/24/24 07:00 Intake Total 1583.4 ml Output Total 1650 ml Balance -66.6 ml Intake Oral 1425 ml IV Total 158.4 ml Output Urine Total 1650 ml # Bowel Movements 2 General Appearance: Alert, Oriented X3, mild distress HEENT: Atraumatic, PERRLA, EOMI, Mucous membr. moist/pink Neck: Supple Lungs: Other Cardiovascular: Regular rate, Normal S1, Normal S2, No murmurs Abdomen: Normal bowel sounds, Soft, No tenderness Extremities: Other Neuro: Cranial nerves 3-12 NL Psych/Mental Status: Mental status NL Medications Current Medications Medications Dose Ordered Sig/Nadia Route Start Time Stop Time Status Last Admin Dose Admin Vancomycin HCl 250 ml @ 200 mls/hr Q12H IV 10/08/24 14:00 UNV Pantoprazole Sodium 40 mg DAILY@0600 PO 10/26/24 06:00 11/24/24 05:16 40 MG Apixaban 5 mg BID PO 10/29/24 22:00 11/24/24 07:55 5 MG Diphenhydramine HCl 50 mg QHSP PRN IV 11/03/24 16:30 Norepinephrine Bitartrate 250 ml @ 3.75 mls/hr Q24H IV 11/10/24 00:00 11/14/24 00:00 5.625 MLS/HR Enteral Nutritional Formula 240 ml TIDWM PO 11/11/24 18:00 11/24/24 11:47 240 ML Amiodarone HCl 200 mg Q12HR PO 11/13/24 22:00 11/24/24 05:15 200 MG Sodium Chloride 10 ml QSHIFT@10,22 IV 11/13/24 22:00 11/24/24 07:55 10 ML Furosemide 100 mg/ Sodium Chloride 110 ml @ 6.6 mls/hr [id number] IV 11/15/24 16:15 11/23/24 19:03 6.6 MLS/HR Acetaminophen 650 mg Q4HP PRN PO 11/16/24 11:00 11/16/24 11:57 650 MG Spironolactone 12.5 mg DAILY PO 11/17/24 10:00 11/24/24 07:55 12.5 MG Nystatin 5 ml QID MT 11/21/24 18:00 11/24/24 17:59 11/22/24 16:57 5 ML Laboratory Results Laboratory Tests 11/24/24 09:26 Chemistry Test 11/24/24 09:26 Calcium Level 10.2 mg/dL (8.7-10.4) Magnesium Level 2.6 mg/dL (1.6-2.6) Urinalysis Test 10/31/24 10:00 11/14/24 17:30 11/23/24 15:00 Urine Creatinine 49.93 mg/dL (30.0-125.0) Urine Protein/Creatinine Ratio 0.60 Urine Sodium 23 mmol/L (40-220) L Urine Potassium 91 mmol/L (12-62) H Urine Total Protein 29.8 mg/dL (1-14) H Urine Osmolality 340 mOsm/kg Urine Color Yellow (Yellow) Urine Clarity Clear (Clear) Urine pH 5.0 (5.0-9.0) Urine Specific [place] 1.012 (1.001-1.035) Urine Protein Negative (Negative) Urine Ketones Negative (Negative) Urine Blood 1+ /uL (Negative) H Urine Nitrite Negative (Negative) Urine Bilirubin Negative (Negative) Urine Urobilinogen Normal mg/dL (Negative) Urine Leukocyte Esterase Trace /uL (Negative) Urine RBC 3 /hpf (0 - 3) Urine Microscopic WBC 3 /HPF (0-3) Urine Squamous Epithelial Cells None seen /hpf (<5) Urine Bacteria None seen /hpf (None Seen) Urine Hyaline Casts Few /lpf (0 - 2) Urine Mucus Few (None Seen) Urine Yeast (Budding) Occasional /hpf (None Urine Glucose Normal mg/dL (Normal) Blood Gas Results Test 11/24/24 11:16 Arterial Blood pH 7.530 (7.350-7.450) FiO2 % 32.0 Microbiology Microbiology Date/Time Source Procedure Growth Status 11/10/24 00:25 Urine - [place] Urine Culture - Final Complete 11/09/24 23:59 Nose MRSA Screen - Final Complete 10/23/24 11:25 Pleural Fluid Gram Stain - Final Complete 10/23/24 11:25 Pleural Fluid Aerobic Culture - Final Complete 10/05/24 19:19 Blood Blood Culture - Final NO GROWTH AFTER 5 DAYS OF INCUBATION. Complete Assessment/Plan Assessment/Plan 64 M with HFrEF 15%, afib on Eliquis, recurrent PLEF, morbid obesity with prolonged ICU and medsurge admission. [facility] accepted pending insurance. iso pressor recs, leukocytosis, will reintroduce iv abx coverage with cefepime. improving kidney function, adequate diuresis on drips. seen today, pending HLOC for transplant Physical exam obese aox4 JVD cannot be observed dry MM PERLLA mild crackles s1 s2 irregular abdomen soft b/l LE edema Labs ekg imaging reviewed Assessment and plan Acute CHF exacerbation with systolic dysfunction Heart failure with reduced ejection fraction 15% Pericardial effusion not in tamponade Recurrent pleural effusion s/p thoracentesis AFib with RVR , currently rate controlled Acute kidney injury 2/2 VMN now CKD 3b History of alcoholism Morbid obesity class I OHS/JEN with chronic CO2 retention Hypotension on midodrine Pericardial effusion Persistent hypokalemia dc diamox switch to bumex aim for -500 daily now on lasix drip failed conversion to po, will reattempt on a later date amio for rate control potassium replacement scheduled, hold today midodrine s/p dobu and dopa (ectopy, dcd) lifevest bedside c/w Eliquis and asa pt protonix restart abx coverage with cefepime, no alergies noted wound consult nystatin swish and swallow 11/24/[address] [facility] per cardiology recommendation diet mech soft dvt ppx on eliquis full code poor prognosis Plan discussed with: Patient My Orders Orders - YULY BOATENG DO Procedure Category Date Status Time Abg W/ Co-Ox RT 11/24/24 Logged 11:00 Date of Service: Nov 24, 2024 Billing Provider: YULY BOATENG DO Common Visit Codes: [id number] INP/OBS CARE(HIGH) YULY BOATENG DO Nov 24, 2024 12:58
[2024-11-24] MEDS: LEVALBUTEROL HCL 1.25 MG/3 ML NEB NEB SCH (18:46)
[2024-11-24] MEDS: diphenhdrAMINE HCL 50 MG/1 ML VL IV PRN (22:36)
--- NOTE | 2024-11-24 23:54 | DVHPN2 ---
Progress Note - Dictate Date Seen: Nov 24, 2024 Medical Necessity Reason Pt with a Central, PICC or Fol: Yes The following are medically ne: Dean Catheter Reason for dean catheter: Bladder Retention/Obstruc, Strict I&O Subjective Patient was seen and evaluated in follow up in the ICU. Patient resting in bed. Patient is awake and alert. Patient's is present at bedside. 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 Chest x-ray showed unchanged pulmonary edema. CM is working in HLOC transfer. vital signs Vital Sign Date Time Temp Pulse Resp B/P (MAP) Pulse Ox O2 Delivery O2 Flow Rate FiO2 11/24/24 11:46 116 11/24/24 11:46 18 91 Nasal Cannula* 8 N/A Oxymizer 11/24/24 11:00 103/55 (71) 11/24/24 08:00 97.6 97.6 Total Intake and Output 11/23/24 11/23/24 11/24/24 15:00 23:00 07:00 Intake Total 52.8 ml 1052.8 ml 477.8 ml Output Total 900 ml 750 ml Balance 52.8 ml 152.8 ml -272.2 ml medications Current Medications Medications Dose Ordered Sig/Nadia Route Start Time Stop Time Status Last Admin Dose Admin Vancomycin HCl 250 ml @ 200 mls/hr Q12H IV 10/08/24 14:00 UNV Pantoprazole Sodium 40 mg DAILY@0600 PO 10/26/24 06:00 11/24/24 05:16 40 MG Apixaban 5 mg BID PO 10/29/24 22:00 11/24/24 07:55 5 MG Diphenhydramine HCl 50 mg QHSP PRN IV 11/03/24 16:30 Norepinephrine Bitartrate 250 ml @ 3.75 mls/hr Q24H IV 11/10/24 00:00 11/14/24 00:00 5.625 MLS/HR Enteral Nutritional Formula 240 ml TIDWM PO 11/11/24 18:00 11/24/24 11:47 240 ML Amiodarone HCl 200 mg Q12HR PO 11/13/24 22:00 11/24/24 05:15 200 MG Sodium Chloride 10 ml QSHIFT@ IV 11/13/24 22:00 11/24/24 07:55 10 ML Furosemide 100 mg/ Sodium Chloride 110 ml @ 6.6 mls/hr [id number] IV 11/15/24 16:15 11/23/24 19:03 6.6 MLS/HR Acetaminophen 650 mg Q4HP PRN PO 11/16/24 11:00 11/16/24 11:57 650 MG Spironolactone 12.5 mg DAILY PO 11/17/24 10:00 11/24/24 07:55 12.5 MG Nystatin 5 ml QID MT 11/21/24 18:00 11/24/24 17:59 11/22/24 16:57 5 ML objective GENERAL: Alert and oriented x 3. No acute distress. Morbidly obese. EYES: PERRL, EOMI. Anicteric. HENT: Moist mucous membranes. LUNGS: Diminished breath sounds. CARDIOVASCULAR: Irregular rate and rhythm. ABDOMEN: Soft, nontender and nondistended. EXTREMITIES: +3 pitting edema. NEUROLOGIC: No focal neurological deficits. SKIN: Warm, dry. laboratory and microbiology Laboratory Tests 11/24/24 09:26 Test 11/24/24 09:26 Range/Units Serum Glucose 190 H 74-106 mg/dL Problem List Atrial fibrillation with rapid ventricular response, newly diagnosed. Left pleural effusion. Sepsis. Hyperkalemia. Acute kidney injury. Transaminitis. Prediabetes. History of alcoholism. Morbidly obese. Severe systolic HF EF 15%, large pleural effusions. Pericardial effusion. Assessment/Plan Continued all current supportive medical care. Amiodarone. Aldactone. Eliquis. GI prophylactics. Additional plan as per the hospital course. Critical care time of 45 minutes provided to include time spent evaluation of patient at bedside, when appropriate patient/family education for diagnosis, treatment plan, review of pertinent medical information and discussion of care with specialty providers and PCP. Dietary Evaluation Review Comments: 1. Refer to CDE on DC for weight management 2. Continue current plan of care Expected Outcomes/Goals: To meet >75% estimated needs Fu 3-5 days Plan discussed with: Patient XIOMY JERONIMO MD Nov 24, 2024 12:23
[2024-11-25] VITALS (44 sets, daily range): BP systolic 88–125; BP diastolic 49–88; PULSE 100–118; RESP 11–26; TEMP 97.4–98.1; O2SAT 93–100
[2024-11-25 06:08] LABS: Hematocrit 45.9 % (41.0-53.0); Hemoglobin 15.2 g/dL (13.5-17.5); Mean Corpuscular Hemoglobin 30.9 pg (28.0-32.0); Mean Corpuscular Volume 93.1 fL (80.0-100.0); Nucleated Red Blood Cells % 0.0 %
[2024-11-25 06:13] LABS: Potassium 4.3 mmol/L (3.5-5.1)
[2024-11-25 06:14] LABS: Anion Gap 11 (5-15); Carbon Dioxide 31 mmol/L (20-31)
[2024-11-25 06:15] LABS: Calcium 9.8 mg/dL (8.7-10.4); Chloride 87 mmol/L (98-107); Sodium 129 mmol/L (136-145)
[2024-11-25 06:19] LABS: BUN/Creatinine Ratio 46.2 (10.0-20.0)
[2024-11-25 06:20] LABS: Magnesium 2.6 mg/dL (1.6-2.6)
[2024-11-25 06:22] LABS: Blood Urea Nitrogen 73 mg/dL (9-23); Glucose 138 mg/dL (74-106)
--- NOTE | 2024-11-25 11:00 | DVHPN2 ---
Reviewed: Care Plan, H&P, Labs, Medications, Radiology Changes from previous H/P or p: No Changes General: Per HPI Eyes: No Pain, No Vision change, No Conjunctivae inflammation, No Eyelid inflammation, No Other, No Redness ENT: No Ear pain, No Ear discharge, No Nose pain, No Nose discharge, No Nose congestion, No Mouth pain, No Mouth swelling, No Throat pain, No Throat swelling, No Other Cardiovascular: Palpitations Respiratory: Shortness of breath Gastrointestinal: No Nausea, No Vomiting, No Abdominal Pain, No Diarrhea, No Constipation, No Melena, No Hematochezia, No Other Genitourinary: No Dysuria, No Frequency, No Incontinence, No Hematuria, No Retention, No Other Musculoskeletal: No other, No neck pain, No shoulder pain, No arm pain, No back pain, No hand pain, No leg pain, No foot pain Skin: No Rash, No Lesions, No Jaundice, No Bruising, No Other Objective Vitals Vital Signs Date Time Temp Pulse Resp B/P (MAP) Pulse Ox O2 Delivery O2 Flow Rate FiO2 11/25/24 09:00 114 18 103/68 (80) 94 11/25/24 08:00 97.6 97.6 11/25/24 08:00 Hi-Flow NC 8 N/A Intake/Output Intake and Output 11/25/24 07:00 Intake Total 1238.4 ml Output Total 1575 ml Balance -336.6 ml Intake Oral 1080 ml IV Total 158.4 ml Output Urine Total 1575 ml # Bowel Movements 1 General Appearance: Alert, Oriented X3, mild distress HEENT: Atraumatic, PERRLA, EOMI, Mucous membr. moist/pink Neck: Supple Lungs: Other Cardiovascular: Regular rate, Normal S1, Normal S2, No murmurs Abdomen: Normal bowel sounds, Soft, No tenderness Extremities: Other Neuro: Cranial nerves 3-12 NL Psych/Mental Status: Mental status NL Medications Current Medications Medications Dose Ordered Sig/Nadia Route Start Time Stop Time Status Last Admin Dose Admin Vancomycin HCl 250 ml @ 200 mls/hr Q12H IV 10/08/24 14:00 UNV Apixaban 5 mg BID PO 10/29/24 22:00 11/24/24 22:22 5 MG Diphenhydramine HCl 50 mg QHSP PRN IV 11/03/24 16:30 11/24/24 22:36 50 MG Norepinephrine Bitartrate 250 ml @ 3.75 mls/hr Q24H IV 11/10/24 00:00 11/14/24 00:00 5.625 MLS/HR Enteral Nutritional Formula 240 ml TIDWM PO 11/11/24 18:00 11/25/24 08:00 240 ML Amiodarone HCl 200 mg Q12HR PO 11/13/24 22:00 11/24/24 22:22 200 MG Sodium Chloride 10 ml QSHIFT@10,22 IV 11/13/24 22:00 11/24/24 22:23 10 ML Furosemide 100 mg/ Sodium Chloride 110 ml @ 6.6 mls/hr [id number] IV 11/15/24 16:15 11/24/24 22:21 6.6 MLS/HR Acetaminophen 650 mg Q4HP PRN PO 11/16/24 11:00 11/16/24 11:57 650 MG Spironolactone 12.5 mg DAILY PO 11/17/24 10:00 11/24/24 07:55 12.5 MG Levalbuterol HCl 1.25 mg Q6HR NEB 11/24/24 18:00 11/25/24 06:41 1.25 MG Laboratory Results Laboratory Tests 11/25/24 04:41 Chemistry Test 11/25/24 04:41 Calcium Level 9.8 mg/dL (8.7-10.4) Magnesium Level 2.6 mg/dL (1.6-2.6) Urinalysis Test 10/31/24 10:00 11/14/24 17:30 11/23/24 15:00 Urine Creatinine 49.93 mg/dL (30.0-125.0) Urine Protein/Creatinine Ratio 0.60 Urine Sodium 23 mmol/L (40-220) L Urine Potassium 91 mmol/L (12-62) H Urine Total Protein 29.8 mg/dL (1-14) H Urine Osmolality 340 mOsm/kg Urine Color Yellow (Yellow) Urine Clarity Clear (Clear) Urine pH 5.0 (5.0-9.0) Urine Specific [place] 1.012 (1.001-1.035) Urine Protein Negative (Negative) Urine Ketones Negative (Negative) Urine Blood 1+ /uL (Negative) H Urine Nitrite Negative (Negative) Urine Bilirubin Negative (Negative) Urine Urobilinogen Normal mg/dL (Negative) Urine Leukocyte Esterase Trace /uL (Negative) Urine RBC 3 /hpf (0 - 3) Urine Microscopic WBC 3 /HPF (0-3) Urine Squamous Epithelial Cells None seen /hpf (<5) Urine Bacteria None seen /hpf (None Seen) Urine Hyaline Casts Few /lpf (0 - 2) Urine Mucus Few (None Seen) Urine Yeast (Budding) Occasional /hpf (None Urine Glucose Normal mg/dL (Normal) Blood Gas Results Test 11/24/24 11:16 Arterial Blood pH 7.530 (7.350-7.450) FiO2 % 32.0 Microbiology Microbiology Date/Time Source Procedure Growth Status 11/10/24 00:25 Urine - [place] Urine Culture - Final Complete 11/09/24 23:59 Nose MRSA Screen - Final Complete 10/23/24 11:25 Pleural Fluid Gram Stain - Final Complete 10/23/24 11:25 Pleural Fluid Aerobic Culture - Final Complete 10/05/24 19:19 Blood Blood Culture - Final NO GROWTH AFTER 5 DAYS OF INCUBATION. Complete Labs and/or images reviewed: Labs reviewed by me, Image(s) reviewed by me Assessment/Plan Assessment/Plan 64 M with HFrEF 15%, afib on Eliquis, recurrent PLEF, morbid obesity with prolonged ICU and medsurge admission. [facility] accepted pending insurance. iso pressor recs, leukocytosis, will reintroduce iv abx coverage with cefepime. improving kidney function, adequate diuresis on drips. seen today, pending HLOC for transplant Physical exam obese aox4 JVD cannot be observed dry MM PERLLA mild crackles s1 s2 irregular abdomen soft b/l LE edema Labs ekg imaging reviewed Assessment and plan Acute CHF exacerbation with systolic dysfunction Heart failure with reduced ejection fraction 15% Pericardial effusion not in tamponade Recurrent pleural effusion s/p thoracentesis AFib with RVR , currently rate controlled Acute kidney injury 2/2 VMN now CKD 3b History of alcoholism Morbid obesity class I OHS/JEN with chronic CO2 retention Hypotension on midodrine Pericardial effusion Persistent hypokalemia dc diamox switch to bumex aim for -500 daily now on lasix drip failed conversion to po, will reattempt on a later date amio for rate control potassium replacement scheduled, hold today midodrine s/p dobu and dopa (ectopy, dcd) lifevest bedside c/w Eliquis and asa pt protonix restart abx coverage with cefepime, no alergies noted wound consult nystatin swish and swallow 11/24/2024 pending transfer to [facility] per cardiology recommendation 11/25/2024 discussed with nursing staf diet mech soft dvt ppx on eliquis full code poor prognosis Plan discussed with: Patient My Orders Orders - YULY BOATENG DO Procedure Category Date Status Time Abg W/ Co-Ox RT 11/24/24 Logged 11:00 Levalbuterol Hcl PHA 11/24/24 In Process (Xopenex Medneb) 18:00 Date of Service: Nov 25, 2024 Billing Provider: YULY BOATENG DO Common Visit Codes: [id number] CARE 30-74 MIN YULY BOATENG DO Nov 25, 2024 11:00
--- NOTE | 2024-11-25 13:39 | DVHPN2 ---
Progress Note - Dictate Date Seen: Nov 25, 2024 Medical Necessity Reason Pt with a Central, PICC or Fol: Yes The following are medically ne: Dean Catheter Reason for dean catheter: Bladder Retention/Obstruc, Strict I&O Subjective Patient and at bedside again this afternoon. Mr. Fountain reports poor appetite. vital signs Vital Sign Date Time Temp Pulse Resp B/P (MAP) Pulse Ox O2 Delivery O2 Flow Rate FiO2 11/25/24 13:00 116 13 95/71 (79) 95 11/25/24 12:00 Hi-Flow NC 8 N/A 11/25/24 12:00 97.8 97.8 Total Intake and Output 11/24/24 11/24/24 11/25/24 15:00 23:00 07:00 Intake Total 52.8 ml 652.8 ml 532.8 ml Output Total 775 ml 800 ml Balance 52.8 ml -122.2 ml -267.2 ml medications Current Medications Medications Dose Ordered Sig/Nadia Route Start Time Stop Time Status Last Admin Dose Admin Vancomycin HCl 250 ml @ 200 mls/hr Q12H IV 10/08/24 14:00 UNV Apixaban 5 mg BID PO 10/29/24 22:00 11/25/24 11:35 5 MG Diphenhydramine HCl 50 mg QHSP PRN IV 11/03/24 16:30 11/24/24 22:36 50 MG Norepinephrine Bitartrate 250 ml @ 3.75 mls/hr Q24H IV 11/10/24 00:00 11/14/24 00:00 5.625 MLS/HR Enteral Nutritional Formula 240 ml TIDWM PO 11/11/24 18:00 11/25/24 08:00 240 ML Amiodarone HCl 200 mg Q12HR PO 11/13/24 22:00 11/25/24 11:35 200 MG Sodium Chloride 10 ml QSHIFT@10,22 IV 11/13/24 22:00 11/25/24 10:00 10 ML Furosemide 100 mg/ Sodium Chloride 110 ml @ 6.6 mls/hr [id number] IV 11/15/24 16:15 11/24/24 22:21 6.6 MLS/HR Acetaminophen 650 mg Q4HP PRN PO 11/16/24 11:00 11/16/24 11:57 650 MG Spironolactone 12.5 mg DAILY PO 11/17/24 10:00 11/25/24 11:35 12.5 MG Levalbuterol HCl 1.25 mg Q6HR NEB 11/24/24 18:00 11/25/24 11:40 1.25 MG objective Gen: nad heent: nc/at, mmm lungs: Diminished breath sounds cvs: No rub abd: soft, bowel sounds audible ext: + edema laboratory and microbiology Laboratory Tests 11/25/24 04:41 Test 11/25/24 04:41 Range/Units Serum Glucose 138 H 74-106 mg/dL Assessment/Plan Acute kidney injury due to hypotension ckd cr 1.1 on admission severe systolic HF EF 15%, large pleural effusions s/p thoracentesis pericardial effusion afib RVR metabolic alkalosis - noted diuretic titration - recommend continue use of diuretic therapy to achieve desired extracellular fluid volume - alkalosis improved Dietary Evaluation Review Comments: 1. Refer to CDE on DC for weight management 2. Continue current plan of care Expected Outcomes/Goals: To meet >75% estimated needs Fu 3-5 days Plan discussed with: Other LEELA GERONIMO MD Nov 25, 2024 13:39
--- NOTE | 2024-11-25 18:19 | DVHPN2 ---
Progress Note - Dictate Date Seen: Nov 25, 2024 Medical Necessity Reason Pt with a Central, PICC or Fol: Yes The following are medically ne: Dean Catheter Reason for dean catheter: Bladder Retention/Obstruc, Strict I&O Subjective Patient was seen and evaluated in follow up in the ICU. Patient resting in bed. WBC 15.3, NA 129, CL 87, BUN 73, RECYCLING MANAGER 1.58. Patient is adamantly refusing chest x-ray. Per CM, patient has been accepted to [facility] under the care of Dr. Chan. P2P and financial clearance are pending. vital signs Vital Sign Date Time Temp Pulse Resp B/P (MAP) Pulse Ox O2 Delivery O2 Flow Rate FiO2 11/25/24 13:00 116 13 95/71 (79) 95 11/25/24 12:00 Hi-Flow NC 8 N/A 11/25/24 12:00 97.8 97.8 Total Intake and Output 11/24/24 11/24/24 11/25/24 15:00 23:00 07:00 Intake Total 52.8 ml 652.8 ml 532.8 ml Output Total 775 ml 800 ml Balance 52.8 ml -122.2 ml -267.2 ml medications Current Medications Medications Dose Ordered Sig/Nadia Route Start Time Stop Time Status Last Admin Dose Admin Vancomycin HCl 250 ml @ 200 mls/hr Q12H IV 10/08/24 14:00 UNV Apixaban 5 mg BID PO 10/29/24 22:00 11/25/24 11:35 5 MG Diphenhydramine HCl 50 mg QHSP PRN IV 11/03/24 16:30 11/24/24 22:36 50 MG Norepinephrine Bitartrate 250 ml @ 3.75 mls/hr Q24H IV 11/10/24 00:00 11/14/24 00:00 5.625 MLS/HR Enteral Nutritional Formula 240 ml TIDWM PO 11/11/24 18:00 11/25/24 08:00 240 ML Amiodarone HCl 200 mg Q12HR PO 11/13/24 22:00 11/25/24 11:35 200 MG Sodium Chloride 10 ml QSHIFT@10,22 IV 11/13/24 22:00 11/25/24 10:00 10 ML Furosemide 100 mg/ Sodium Chloride 110 ml @ 6.6 mls/hr [id number] IV 11/15/24 16:15 11/24/24 22:21 6.6 MLS/HR Acetaminophen 650 mg Q4HP PRN PO 11/16/24 11:00 11/16/24 11:57 650 MG Spironolactone 12.5 mg DAILY PO 11/17/24 10:00 11/25/24 11:35 12.5 MG Levalbuterol HCl 1.25 mg Q6HR NEB 11/24/24 18:00 11/25/24 11:40 1.25 MG objective GENERAL: Alert and oriented x 3. No acute distress. Morbidly obese. EYES: PERRL, EOMI. Anicteric. HENT: Moist mucous membranes. LUNGS: Diminished breath sounds. CARDIOVASCULAR: Irregular rate and rhythm. ABDOMEN: Soft, nontender and nondistended. EXTREMITIES: +3 pitting edema. NEUROLOGIC: No focal neurological deficits. SKIN: Warm, dry. laboratory and microbiology Laboratory Tests 11/25/24 04:41 Test 11/25/24 04:41 Range/Units Serum Glucose 138 H 74-106 mg/dL Problem List Atrial fibrillation with rapid ventricular response, newly diagnosed. Left pleural effusion. Sepsis. Hyperkalemia. Acute kidney injury. Transaminitis. Prediabetes. History of alcoholism. Morbidly obese. Severe systolic HF EF 15%, large pleural effusions. Pericardial effusion. Assessment/Plan Continued all current supportive medical care. Amiodarone. Aldactone. Eliquis. Additional plan as per the hospital course. Critical care time of 45 minutes provided to include time spent evaluation of patient at bedside, when appropriate patient/family education for diagnosis, treatment plan, review of pertinent medical information and discussion of care with specialty providers and PCP. Dietary Evaluation Review Comments: 1. Refer to CDE on DC for weight management 2. Continue current plan of care Expected Outcomes/Goals: To meet >75% estimated needs Fu 3-5 days Plan discussed with: Patient XIOMY JERONIMO MD Nov 25, 2024 13:24
[2024-11-25] MEDS: FUROSEMIDE INJECTION 10 ML ONE (20:34)
[2024-11-26] VITALS (99 sets, daily range): BP systolic 79–120; BP diastolic 55–85; PULSE 104–117; RESP 13–34; TEMP 97.5–98.7; O2SAT 89–96
[2024-11-26 05:19] LABS: Hematocrit 47.6 % (41.0-53.0); Hemoglobin 16.0 g/dL (13.5-17.5); Mean Corpuscular Hemoglobin 31.2 pg (28.0-32.0); Mean Corpuscular Volume 93.0 fL (80.0-100.0); Nucleated Red Blood Cells % 0.1 %
[2024-11-26 05:36] LABS: Alanine Aminotransferase 48 U/L (7-40); Albumin 4.0 g/dL (3.2-4.8); Alkaline Phosphatase 127 U/L (46-116); Anion Gap 9 (5-15); BUN/Creatinine Ratio 50.6 (10.0-20.0); Bilirubin, Total 1.8 mg/dL (0.2-1.0); Blood Urea Nitrogen 78 mg/dL (9-23); Calcium 9.5 mg/dL (8.7-10.4); Carbon Dioxide 33 mmol/L (20-31); Chloride 87 mmol/L (98-107); Glucose 143 mg/dL (74-106); Magnesium 2.6 mg/dL (1.6-2.6); Potassium 4.4 mmol/L (3.5-5.1); Sodium 129 mmol/L (136-145); Total Protein 6.3 g/dL (5.7-8.2)
--- NOTE | 2024-11-26 13:17 | DVHPN2 ---
Progress Note - Dictate Date Seen: Nov 26, 2024 Medical Necessity Reason Pt with a Central, PICC or Fol: Yes The following are medically ne: Dean Catheter Reason for dean catheter: Bladder Retention/Obstruc, Strict I&O Subjective Patient was seen and evaluated in follow up in the ICU. No overnight events. The patient is on 4 LPM NC. Patient is complaining of generalized pain. WBC 14.7, NA 19, BUN 78, Soil Fertility Extension Specialist 1.54. Patient still pending transfer to [facility]. vital signs Vital Sign Date Time Temp Pulse Resp B/P (MAP) Pulse Ox O2 Delivery O2 Flow Rate FiO2 11/26/24 13:00 113 18 116/75 (89) 92 11/26/24 12:00 Nasal Cannula* 4 36 11/26/24 12:00 97.9 97.9 Total Intake and Output 11/25/24 11/25/24 11/26/24 15:00 23:00 07:00 Intake Total 182.8 ml 702.8 ml 492.8 ml Output Total 850 ml 800 ml Balance 182.8 ml -147.2 ml -307.2 ml medications Current Medications Medications Dose Ordered Sig/Nadia Route Start Time Stop Time Status Last Admin Dose Admin Vancomycin HCl 250 ml @ 200 mls/hr Q12H IV 10/08/24 14:00 UNV Apixaban 5 mg BID PO 10/29/24 22:00 11/26/24 10:10 5 MG Diphenhydramine HCl 50 mg QHSP PRN IV 11/03/24 16:30 11/25/24 23:08 50 MG Norepinephrine Bitartrate 250 ml @ 3.75 mls/hr Q24H IV 11/10/24 00:00 11/14/24 00:00 5.625 MLS/HR Enteral Nutritional Formula 240 ml TIDWM PO 11/11/24 18:00 11/26/24 12:00 240 ML Amiodarone HCl 200 mg Q12HR PO 11/13/24 22:00 11/26/24 10:10 200 MG Sodium Chloride 10 ml QSHIFT@10,22 IV 11/13/24 22:00 11/26/24 10:10 10 ML Furosemide 100 mg/ Sodium Chloride 110 ml @ 6.6 mls/hr [id number] IV 11/15/24 16:15 11/26/24 04:18 6.6 MLS/HR Acetaminophen 650 mg Q4HP PRN PO 11/16/24 11:00 11/25/24 23:08 650 MG Spironolactone 12.5 mg DAILY PO 11/17/24 10:00 11/26/24 10:08 12.5 MG Levalbuterol HCl 1.25 mg Q6HR NEB 11/24/24 18:00 11/26/24 00:43 1.25 MG objective GENERAL: Alert and oriented x 3. No acute distress. Morbidly obese. EYES: PERRL, EOMI. Anicteric. HENT: Moist mucous membranes. LUNGS: Diminished breath sounds. CARDIOVASCULAR: Irregular rate and rhythm. ABDOMEN: Soft, nontender and nondistended. EXTREMITIES: +3 pitting edema. NEUROLOGIC: No focal neurological deficits. SKIN: Warm, dry. laboratory and microbiology Laboratory Tests 11/26/24 04:59 Test 11/26/24 04:59 Range/Units Serum Glucose 143 H 74-106 mg/dL Problem List Atrial fibrillation with rapid ventricular response, newly diagnosed. Left pleural effusion. Sepsis. Hyperkalemia. Acute kidney injury. Transaminitis. Prediabetes. History of alcoholism. Morbidly obese. Severe systolic HF EF 15%, large pleural effusions. Pericardial effusion. Assessment/Plan Continued all current supportive medical care. Amiodarone. Eliquis. Diuretics with Lasix. Vasopressors for hemodynamic support. Aldactone. Additional plan as per the hospital course. Critical care time of 45 minutes provided to include time spent evaluation of patient at bedside, when appropriate patient/family education for diagnosis, treatment plan, review of pertinent medical information and discussion of care with specialty providers and PCP. Dietary Evaluation Review Comments: 1. Refer to CDE on DC for weight management 2. Continue current plan of care Expected Outcomes/Goals: To meet >75% estimated needs Fu 3-5 days Plan discussed with: Patient XIOMY JERONIMO MD Nov 26, 2024 13:17
--- NOTE | 2024-11-26 14:09 | DVHPN2 ---
Assessment/Plan Assessment/Plan progress note 64 M with HFrEF 15%, afib on Eliquis, recurrent PLEF, morbid obesity with prolonged ICU and medsurge admission. [facility] accepted pending insurance. iso pressor recs, leukocytosis, will reintroduce iv abx coverage with cefepime. improving kidney function, adequate diuresis on drips. seen today, skin breakdown. still pending HLOC. PT for resistance band and light bed mobility to decrease ICU deconditioning Physical exam obese aox4 JVD cannot be observed dry MM PERLLA mild crackles s1 s2 irregular abdomen soft b/l LE edema Labs ekg imaging reviewed Assessment and plan Acute CHF exacerbation with systolic dysfunction Heart failure with reduced ejection fraction 15% Pericardial effusion not in tamponade Recurrent pleural effusion s/p throacentesis AFib with RVR , currently rate controlled Acute kidney injury 2/2 VMN now CKD 3b History of alcoholism Morbid obesity class I OHS/JEN with chronic CO2 retention Hypotension on midodrine Pericardial effusion Persistent hypokalemia dc diamox switch to bumex aim for -500 daily now on lasix drip failed conversion to po, will reattempt on a later date amio for rate control potassium replacement scheduled, hold today midodrine s/p dobu and dopa (ectopy, dcd) lifevest bedside c/w Eliquis and asa pt protonix restart abx coverage with cefepime, no alergies noted wound consult nystatin swish and swallow diet mech soft dvt ppx on eliquis full code poor prognosis Plan discussed with: Patient Date of Service: Nov 26, 2024 Billing Provider: IDALMIS DIAZ MD Common Visit Codes: [id number] INP/OBS CARE(HIGH) IDALMIS DIAZ MD Nov 26, 2024 14:09
--- NOTE | 2024-11-26 16:06 | DVHPN2 ---
Progress Note Date Seen: Nov 26, 2024 Medical Necessity Reason Pt with a Central, PICC or Fol: Yes The following are medically ne: Dean Catheter Reason for dean catheter: Bladder Retention/Obstruc, Strict I&O Subjective Patient reports: No new complaints Review of Systems: Deferred Objective vital signs Vital Sign Date Time Temp Pulse Resp B/P (MAP) Pulse Ox O2 Delivery O2 Flow Rate FiO2 11/26/24 15:45 112 14 100/65 (77) 92 11/26/24 14:00 Nasal Cannula* 4 36 11/26/24 12:00 97.9 97.9 Total Intake and Output 11/25/24 11/25/24 11/26/24 15:00 23:00 07:00 Intake Total 182.8 ml 702.8 ml 492.8 ml Output Total 850 ml 800 ml Balance 182.8 ml -147.2 ml -307.2 ml medications Current Medications Medications Dose Ordered Sig/Nadia Route Start Time Stop Time Status Last Admin Dose Admin Vancomycin HCl 250 ml @ 200 mls/hr Q12H IV 10/08/24 14:00 UNV Apixaban 5 mg BID PO 10/29/24 22:00 11/26/24 10:10 5 MG Diphenhydramine HCl 50 mg QHSP PRN IV 11/03/24 16:30 11/25/24 23:08 50 MG Norepinephrine Bitartrate 250 ml @ 3.75 mls/hr Q24H IV 11/10/24 00:00 11/14/24 00:00 5.625 MLS/HR Enteral Nutritional Formula 240 ml TIDWM PO 11/11/24 18:00 11/26/24 12:00 240 ML Amiodarone HCl 200 mg Q12HR PO 11/13/24 22:00 11/26/24 10:10 200 MG Sodium Chloride 10 ml QSHIFT@10,22 IV 11/13/24 22:00 11/26/24 10:10 10 ML Furosemide 100 mg/ Sodium Chloride 110 ml @ 6.6 mls/hr [id number] IV 11/15/24 16:15 11/26/24 04:18 6.6 MLS/HR Acetaminophen 650 mg Q4HP PRN PO 11/16/24 11:00 11/25/24 23:08 650 MG Spironolactone 12.5 mg DAILY PO 11/17/24 10:00 11/26/24 10:08 12.5 MG Levalbuterol HCl 1.25 mg Q6HR NEB 11/24/24 18:00 11/26/24 00:43 1.25 MG Examination: GENERAL:Abnormal, LUNGS:Abnormal, CVS:Abnormal, MSK:Abnormal, NEURO:Normal laboratory and microbiology Laboratory Tests 11/26/24 04:59 Test 11/26/24 04:59 Range/Units Serum Glucose 143 H 74-106 mg/dL Microbiology Date/Time Source Procedure Growth Status 11/23/24 13:53 Urine - Dean Port Urine Culture - Preliminary Presumptive Heaven albicans Resulted 11/09/24 23:59 Nose MRSA Screen - Final Complete 10/23/24 11:25 Pleural Fluid Gram Stain - Final Complete 10/23/24 11:25 Pleural Fluid Aerobic Culture - Final Complete 10/05/24 19:19 Blood Blood Culture - Final NO GROWTH AFTER 5 DAYS OF INCUBATION. Complete Problem List/Assessment/Plan Problem List/Assessment/Plan Acute kidney injury due to hypotension/cardiorenal etiology ckd cr 1.1 on admission severe systolic HF EF 15%, large pleural effusions s/p thoracentesis AFib with RVR s/p Shock likely cardiogenic pericardial effusion afib RVR Hyponatremia Hypokalemia Metabolic alkalosis secondary to diuretics Recommendations Currently he is on Lasix drip stable renal function HLOC pending Plan discussed with: Patient Dietary Evaluation Review Comments: 1. Refer to CDE on DC for weight management 2. Continue current plan of care Expected Outcomes/Goals: To meet >75% estimated needs Fu 3-5 days DINA FORBES MD Nov 26, 2024 16:06
[2024-11-27] VITALS (49 sets, daily range): BP systolic 84–120; BP diastolic 58–86; PULSE 105–117; RESP 13–33; TEMP 97.5–97.8; O2SAT 91–97
[2024-11-27 04:56] LABS: Hematocrit 46.2 % (41.0-53.0); Hemoglobin 15.7 g/dL (13.5-17.5); Mean Corpuscular Hemoglobin 31.5 pg (28.0-32.0); Mean Corpuscular Volume 92.6 fL (80.0-100.0); Nucleated Red Blood Cells % 0.2 %
[2024-11-27 05:05] LABS: Potassium 4.0 mmol/L (3.5-5.1)
[2024-11-27 05:06] LABS: Anion Gap 10 (5-15); Calcium 9.2 mg/dL (8.7-10.4)
[2024-11-27 05:07] LABS: Carbon Dioxide 33 mmol/L (20-31); Chloride 87 mmol/L (98-107); Sodium 130 mmol/L (136-145)
[2024-11-27 05:11] LABS: BUN/Creatinine Ratio 53.8 (10.0-20.0)
[2024-11-27 05:12] LABS: Blood Urea Nitrogen 77 mg/dL (9-23); Glucose 135 mg/dL (74-106); Magnesium 2.5 mg/dL (1.6-2.6)
--- NOTE | 2024-11-27 16:51 | DVHPN2 ---
Progress Note Date Seen: Nov 27, 2024 Medical Necessity Reason Pt with a Central, PICC or Fol: Yes The following are medically ne: Dean Catheter Reason for dean catheter: Bladder Retention/Obstruc, Strict I&O Subjective Patient reports: No new complaints Objective vital signs Vital Sign Date Time Temp Pulse Resp B/P (MAP) Pulse Ox O2 Delivery O2 Flow Rate FiO2 11/27/24 13:25 109/75 11/27/24 11:27 115 15 93 6.0 11/27/24 10:00 Hi-Flow NC N/A 11/27/24 08:00 97.8 97.8 Total Intake and Output 11/26/24 11/26/24 11/27/24 15:00 23:00 07:00 Intake Total 52.8 ml 879.4 ml 402.8 ml Output Total 825 ml 1000 ml Balance 52.8 ml 54.4 ml -597.2 ml medications Current Medications Medications Dose Ordered Sig/Nadia Route Start Time Stop Time Status Last Admin Dose Admin Vancomycin HCl 250 ml @ 200 mls/hr Q12H IV 10/08/24 14:00 UNV Apixaban 5 mg BID PO 10/29/24 22:00 11/27/24 10:13 5 MG Diphenhydramine HCl 50 mg QHSP PRN IV 11/03/24 16:30 11/25/24 23:08 50 MG Enteral Nutritional Formula 240 ml TIDWM PO 11/11/24 18:00 11/27/24 12:17 240 ML Amiodarone HCl 200 mg Q12HR PO 11/13/24 22:00 11/27/24 10:13 200 MG Sodium Chloride 10 ml QSHIFT@10,22 IV 11/13/24 22:00 11/27/24 10:13 10 ML Furosemide 100 mg/ Sodium Chloride 110 ml @ 6.6 mls/hr [id number] IV 11/15/24 16:15 11/27/24 13:25 6.6 MLS/HR Acetaminophen 650 mg Q4HP PRN PO 11/16/24 11:00 11/25/24 23:08 650 MG Spironolactone 12.5 mg DAILY PO 11/17/24 10:00 11/27/24 10:13 12.5 MG Levalbuterol HCl 1.25 mg Q6HR NEB 11/24/24 18:00 11/27/24 00:17 1.25 MG Examination: GENERAL:Abnormal, LUNGS:Abnormal, MSK:Abnormal (edema), SKIN:Abnormal, NEURO:Normal laboratory and microbiology Laboratory Tests 11/27/24 04:35 Test 11/27/24 04:35 Range/Units Serum Glucose 135 H 74-106 mg/dL Microbiology Date/Time Source Procedure Growth Status 11/23/24 13:53 Urine - Dean Port Urine Culture - Final Presumptive Heaven albicans Complete 11/09/24 23:59 Nose MRSA Screen - Final Complete 10/23/24 11:25 Pleural Fluid Gram Stain - Final Complete 10/23/24 11:25 Pleural Fluid Aerobic Culture - Final Complete 10/05/24 19:19 Blood Blood Culture - Final NO GROWTH AFTER 5 DAYS OF INCUBATION. Complete Problem List/Assessment/Plan Problem List/Assessment/Plan Acute kidney injury due to hypotension/cardiorenal etiology ckd cr 1.1 on admission severe systolic HF EF 15%, large pleural effusions s/p thoracentesis AFib with RVR s/p Shock likely cardiogenic pericardial effusion afib RVR Hyponatremia Hypokalemia Metabolic alkalosis secondary to diuretics Recommendations Currently he is on Lasix drip stable renal function HLOC pending downgraded from icu Plan discussed with: Patient, Other Dietary Evaluation Review Comments: 1. Refer to CDE on DC for weight management 2. Continue current plan of care Expected Outcomes/Goals: To meet >75% estimated needs Fu 3-5 days DINA FORBES MD Nov 27, 2024 16:51
[2024-11-27 21:53] LABS: Amphetamine Screen, Urine Neg (NEGATIVE); Barbiturate Scree,Urine Neg (NEGATIVE); Benzodiazephine Screen, Urine Neg (NEGATIVE); Cannabinoid Screen, Urine Neg (NEGATIVE); Cocaine Screen, Urine Neg (NEGATIVE); Opiate Scree,Urine Neg (NEGATIVE); Phencyclidine Screen, Urine Neg (NEGATIVE)
--- NOTE | 2024-11-27 22:54 | DVHPN2 ---
Progress Note - Dictate Date Seen: Nov 27, 2024 Medical Necessity Reason Pt with a Central, PICC or Fol: Yes The following are medically ne: Dean Catheter Reason for dean catheter: Bladder Retention/Obstruc, Strict I&O Subjective Patient was seen and evaluated in follow up. Patient has been downgraded to tele bed. Patient is on 4 LPM NC. Urine culture grew presumptive majo albicans. WBC 17.2, CO2 33, BUN 77, Ear Machine Operator 1.43. Telemetry reviewed. vital signs Vital Sign Date Time Temp Pulse Resp B/P (MAP) Pulse Ox O2 Delivery O2 Flow Rate FiO2 11/27/24 20:30 97.5 113 22 120/71 (87) 92 97.5 11/27/24 20:00 Nasal Cannula* 4 36 Total Intake and Output 11/26/24 11/26/24 11/27/24 15:00 23:00 07:00 Intake Total 52.8 ml 879.4 ml 402.8 ml Output Total 825 ml 1000 ml Balance 52.8 ml 54.4 ml -597.2 ml medications Current Medications Medications Dose Ordered Sig/Nadia Route Start Time Stop Time Status Last Admin Dose Admin Vancomycin HCl 250 ml @ 200 mls/hr Q12H IV 10/08/24 14:00 UNV Apixaban 5 mg BID PO 10/29/24 22:00 11/27/24 21:14 5 MG Diphenhydramine HCl 50 mg QHSP PRN IV 11/03/24 16:30 11/25/24 23:08 50 MG Enteral Nutritional Formula 240 ml TIDWM PO 11/11/24 18:00 11/27/24 18:28 240 ML Amiodarone HCl 200 mg Q12HR PO 11/13/24 22:00 11/27/24 21:14 200 MG Sodium Chloride 10 ml QSHIFT@10,22 IV 11/13/24 22:00 11/27/24 21:16 10 ML Furosemide 100 mg/ Sodium Chloride 110 ml @ 6.6 mls/hr [id number] IV 11/15/24 16:15 11/27/24 13:25 6.6 MLS/HR Acetaminophen 650 mg Q4HP PRN PO 11/16/24 11:00 11/25/24 23:08 650 MG Spironolactone 12.5 mg DAILY PO 11/17/24 10:00 11/27/24 10:13 12.5 MG Levalbuterol HCl 1.25 mg Q6HR NEB 11/24/24 18:00 11/27/24 00:17 1.25 MG objective GENERAL: Alert and oriented x 3. No acute distress. Morbidly obese. EYES: PERRL, EOMI. Anicteric. HENT: Moist mucous membranes. LUNGS: Diminished breath sounds. CARDIOVASCULAR: Irregular rate and rhythm. ABDOMEN: Soft, nontender and nondistended. EXTREMITIES: +3 pitting edema. NEUROLOGIC: No focal neurological deficits. SKIN: Warm, dry. laboratory and microbiology Laboratory Tests 11/27/24 04:35 Test 11/27/24 04:35 Range/Units Serum Glucose 135 H 74-106 mg/dL Problem List Atrial fibrillation with rapid ventricular response, newly diagnosed. Left pleural effusion. Sepsis. Hyperkalemia. Acute kidney injury. Transaminitis. Prediabetes. History of alcoholism. Morbidly obese. Severe systolic HF EF 15%, large pleural effusions. Pericardial effusion. Assessment/Plan Continued all current supportive medical care. Amiodarone. Eliquis. Diuretics with Lasix. Aldactone. Additional plan as per the hospital course. Dietary Evaluation Review Comments: 1. Refer to CDE on DC for weight management 2. Continue current plan of care Expected Outcomes/Goals: To meet >75% estimated needs Fu 3-5 days Plan discussed with: Patient XIOMY JERONIMO MD Nov 27, 2024 22:54
[2024-11-28] VITALS (13 sets, daily range): BP systolic 92–113; BP diastolic 58–74; PULSE 89–117; RESP 16–22; TEMP 97.1–97.8; O2SAT 90–96
--- NOTE | 2024-11-28 14:42 | DVHPN2 ---
Assessment/Plan Assessment/Plan progress note 64 M with HFrEF 15%, afib on Eliquis, recurrent PLEF, morbid obesity with prolonged ICU and medsurge admission. [facility] accepted pending insurance. iso pressor recs, leukocytosis, will reintroduce iv abx coverage with cefepime. improving kidney function, adequate diuresis on drips. seen today, pending auth for HLOC. empiric coverage for majo in urine although colony size more likely colonization. encourage ROM exercise and oral intake Physical exam obese aox4 JVD cannot be observed dry MM PERLLA mild crackles s1 s2 irregular abdomen soft b/l LE edema Labs ekg imaging reviewed Assessment and plan Acute CHF exacerbation with systolic dysfunction Heart failure with reduced ejection fraction 15% Pericardial effusion not in tamponade Recurrent pleural effusion s/p throacentesis AFib with RVR , currently rate controlled Acute kidney injury 2/2 VMN now CKD 3b History of alcoholism Morbid obesity class I OHS/JEN with chronic CO2 retention Hypotension on midodrine Pericardial effusion Persistent hypokalemia dc diamox switch to bumex aim for -500 daily now on lasix drip failed conversion to po, will reattempt on a later date amio for rate control potassium replacement scheduled, hold today midodrine s/p dobu and dopa (ectopy, dcd) lifevest bedside c/w Eliquis and asa pt protonix restart abx coverage with cefepime, no alergies noted wound consult fluconazole diet mech soft dvt ppx on eliquis full code poor prognosis Plan discussed with: Patient Date of Service: Nov 28, 2024 Billing Provider: IDALMIS DIAZ MD Common Visit Codes: [id number] INP/OBS CARE(HIGH) IDALMIS DIAZ MD Nov 28, 2024 14:42
--- NOTE | 2024-11-28 16:58 | DVHPN2 ---
Progress Note Date Seen: Nov 28, 2024 Medical Necessity Reason Pt with a Central, PICC or Fol: Yes The following are medically ne: Dean Catheter Reason for dean catheter: Bladder Retention/Obstruc, Strict I&O Subjective Patient reports: Other Review of Systems: RESPIRATORY:Abnormal (sob), Deferred Objective vital signs Vital Sign Date Time Temp Pulse Resp B/P (MAP) Pulse Ox O2 Delivery O2 Flow Rate FiO2 11/28/24 11:10 110 18 95 11/28/24 05:57 Nasal Cannula 8.0 11/28/24 05:57 N/A 11/28/24 04:30 97.6 102/68 (79) 97.6 Total Intake and Output 11/27/24 11/27/24 11/28/24 15:00 23:00 07:00 Intake Total 206.4 ml 397.85 ml 300 ml Output Total 450 ml 0 ml 1480 ml Balance -243.6 ml 397.85 ml -1180 ml medications Current Medications Medications Dose Ordered Sig/Nadia Route Start Time Stop Time Status Last Admin Dose Admin Vancomycin HCl 250 ml @ 200 mls/hr Q12H IV 10/08/24 14:00 UNV Apixaban 5 mg BID PO 10/29/24 22:00 11/28/24 11:58 5 MG Diphenhydramine HCl 50 mg QHSP PRN IV 11/03/24 16:30 11/25/24 23:08 50 MG Enteral Nutritional Formula 240 ml TIDWM PO 11/11/24 18:00 11/28/24 12:00 240 ML Amiodarone HCl 200 mg Q12HR PO 11/13/24 22:00 11/28/24 11:58 200 MG Sodium Chloride 10 ml QSHIFT@10,22 IV 11/13/24 22:00 11/28/24 11:57 10 ML Acetaminophen 650 mg Q4HP PRN PO 11/16/24 11:00 11/25/24 23:08 650 MG Spironolactone 12.5 mg DAILY PO 11/17/24 10:00 11/28/24 11:58 12.5 MG Levalbuterol HCl 1.25 mg Q6HR NEB 11/24/24 18:00 11/28/24 11:00 1.25 MG Fluconazole 100 ml @ 100 mls/hr DAILY IV 11/29/24 10:00 8/3/25 09:59 Furosemide 100 mg/ Sodium Chloride 110 ml @ 11 mls/hr Q10H IV 11/28/24 17:00 Examination: GENERAL:Abnormal, LUNGS:Abnormal, CVS:Abnormal, MSK:Abnormal (edema), NEURO:Normal laboratory and microbiology Laboratory Tests 11/27/24 04:35 Test 11/27/24 04:35 Range/Units Serum Glucose 135 H 74-106 mg/dL Microbiology Date/Time Source Procedure Growth Status 11/23/24 13:53 Urine - Dean Port Urine Culture - Final Presumptive Heaven albicans Complete 11/09/24 23:59 Nose MRSA Screen - Final Complete 10/23/24 11:25 Pleural Fluid Gram Stain - Final Complete 10/23/24 11:25 Pleural Fluid Aerobic Culture - Final Complete 10/05/24 19:19 Blood Blood Culture - Final NO GROWTH AFTER 5 DAYS OF INCUBATION. Complete Problem List/Assessment/Plan Problem List/Assessment/Plan Acute kidney injury due to hypotension/cardiorenal etiology ckd cr 1.1 on admission severe systolic HF EF 15%, large pleural effusions s/p thoracentesis AFib with RVR s/p Shock likely cardiogenic pericardial effusion afib RVR Hyponatremia Hypokalemia Metabolic alkalosis secondary to diuretics Acute hypoxic respiratory failure Recommendations Currently he is on Lasix drip dose increased as hypoxic stable renal function HLOC pending downgraded from icu Plan discussed with: Patient, Other Dietary Evaluation Review Comments: 1. Refer to CDE on DC for weight management 2. Continue current plan of care Expected Outcomes/Goals: To meet >75% estimated needs Fu 3-5 days DINA FORBES MD Nov 28, 2024 16:58
[2024-11-28] MEDS: FUROSEMIDE INJECTION 100 MG in SODIUM CHL 0.9% 100 ML IV SCH (19:50)
--- NOTE | 2024-11-28 23:56 | DVHPN2 ---
Progress Note - Dictate Date Seen: Nov 28, 2024 Medical Necessity Reason Pt with a Central, PICC or Fol: Yes The following are medically ne: Dean Catheter Reason for dean catheter: Bladder Retention/Obstruc, Strict I&O Subjective Patient was seen and evaluated in follow up. Overnight, the patient refused scheduled medications. Patient is complaining of generalized pain. Patient is on 8 L high flow O2. Repeat echocardiogram is pending. Telemetry reviewed. vital signs Vital Sign Date Time Temp Pulse Resp B/P (MAP) Pulse Ox O2 Delivery O2 Flow Rate FiO2 11/28/24 11:10 110 18 95 11/28/24 05:57 Nasal Cannula 8.0 11/28/24 05:57 N/A 11/28/24 04:30 97.6 102/68 (79) 97.6 Total Intake and Output 11/27/24 11/27/24 11/28/24 15:00 23:00 07:00 Intake Total 206.4 ml 397.85 ml 300 ml Output Total 450 ml 0 ml 1480 ml Balance -243.6 ml 397.85 ml -1180 ml medications Current Medications Medications Dose Ordered Sig/Nadia Route Start Time Stop Time Status Last Admin Dose Admin Vancomycin HCl 250 ml @ 200 mls/hr Q12H IV 10/08/24 14:00 UNV Apixaban 5 mg BID PO 10/29/24 22:00 11/28/24 11:58 5 MG Diphenhydramine HCl 50 mg QHSP PRN IV 11/03/24 16:30 11/25/24 23:08 50 MG Enteral Nutritional Formula 240 ml TIDWM PO 11/11/24 18:00 11/28/24 11:57 240 ML Amiodarone HCl 200 mg Q12HR PO 11/13/24 22:00 11/28/24 11:58 200 MG Sodium Chloride 10 ml QSHIFT@10,22 IV 11/13/24 22:00 11/28/24 11:57 10 ML Furosemide 100 mg/ Sodium Chloride 110 ml @ 6.6 mls/hr [id number] IV 11/15/24 16:15 11/27/24 13:25 6.6 MLS/HR Acetaminophen 650 mg Q4HP PRN PO 11/16/24 11:00 11/25/24 23:08 650 MG Spironolactone 12.5 mg DAILY PO 11/17/24 10:00 11/28/24 11:58 12.5 MG Levalbuterol HCl 1.25 mg Q6HR NEB 11/24/24 18:00 11/28/24 11:00 1.25 MG objective GENERAL: Alert and oriented x 3. No acute distress. Morbidly obese. EYES: PERRL, EOMI. Anicteric. HENT: Moist mucous membranes. LUNGS: Diminished breath sounds. CARDIOVASCULAR: Irregular rate and rhythm. ABDOMEN: Soft, nontender and nondistended. EXTREMITIES: +3 pitting edema. NEUROLOGIC: No focal neurological deficits. SKIN: Warm, dry. laboratory and microbiology Laboratory Tests 11/27/24 04:35 Test 11/27/24 04:35 Range/Units Serum Glucose 135 H 74-106 mg/dL Problem List Atrial fibrillation with rapid ventricular response, newly diagnosed. Left pleural effusion. Sepsis. Hyperkalemia. Acute kidney injury. Transaminitis. Prediabetes. History of alcoholism. Morbidly obese. Severe systolic HF EF 15%, large pleural effusions. Pericardial effusion. Assessment/Plan Continued all current supportive medical care. Echocardiogram. Amiodarone. Eliquis. Aldactone. Med-neb treatments. Additional plan as per the hospital course. Dietary Evaluation Review Comments: 1. Refer to CDE on DC for weight management 2. Continue current plan of care Expected Outcomes/Goals: To meet >75% estimated needs Fu 3-5 days Plan discussed with: Patient XIOMY JERONIMO MD Nov 28, 2024 14:05
[2024-11-29] VITALS (79 sets, daily range): BP systolic 83–118; BP diastolic 57–85; PULSE 100–123; RESP 15–48; TEMP 97–98.3; O2SAT 74–98
[2024-11-29 04:59] LABS: Base Excess 8.0 mmol/L (-2.0-3.0)
[2024-11-29 08:25] LABS: Hematocrit 30.5 % (41.0-53.0); Hemoglobin 10.5 g/dL (13.5-17.5); Mean Corpuscular Hemoglobin 33.1 pg (28.0-32.0); Mean Corpuscular Volume 95.6 fL (80.0-100.0); Nucleated Red Blood Cells % 0.0 %
[2024-11-29 08:29] LABS: Chloride 102 mmol/L (98-107); Sodium 137 mmol/L (136-145)
[2024-11-29 08:30] LABS: Anion Gap 16 (5-15)
[2024-11-29 08:34] LABS: Calcium 11.1 mg/dL (8.7-10.4); Carbon Dioxide 19 mmol/L (20-31); Potassium 3.2 mmol/L (3.5-5.1)
[2024-11-29 08:35] LABS: BUN/Creatinine Ratio 12.9 (10.0-20.0); Blood Urea Nitrogen 68 mg/dL (9-23); Glucose 125 mg/dL (74-106)
[2024-11-29 09:19] LABS: Base Excess 6.4 mmol/L (-2.0-3.0)
[2024-11-29 09:54] LABS: Hematocrit 45.5 % (41.0-53.0); Hemoglobin 15.2 g/dL (13.5-17.5); Mean Corpuscular Hemoglobin 31.7 pg (28.0-32.0); Mean Corpuscular Volume 94.7 fL (80.0-100.0); Nucleated Red Blood Cells % 0.1 %
--- NOTE | 2024-11-29 10:00 | DVH ---
CHEST RADIOGRAPH Indication: Increased 02 demands Technique: Single frontal view of the chest was obtained COMPARISON: XY CHEST PORTABLE on DOS: 11/24/24, XY CHEST PORTABLE on DOS: 11/23/24, XY CHEST PORTABLE o n DOS: 11/15/24, XY CHEST PORTABLE on DOS: 11/13/24, XY CHEST PORTABLE on DOS: 11/10/24 FINDINGS: Lines and Tubes: Right PICC in satisfactory position. Lungs: Multifocal airspace disease Pleura: Small bilateral pleural effusions, [id number]. No pneumothorax. Cardiomediastinal contours: Cardiomegaly Bones: Unremarkable IMPRESSION: Unchanged pulmonary edema
[2024-11-29 10:09] LABS: Anion Gap 12 (5-15); Carbon Dioxide 29 mmol/L (20-31); Chloride 91 mmol/L (98-107); Potassium 4.0 mmol/L (3.5-5.1); Sodium 132 mmol/L (136-145)
[2024-11-29 10:10] LABS: Calcium 9.6 mg/dL (8.7-10.4)
[2024-11-29 10:14] LABS: BUN/Creatinine Ratio 61.5 (10.0-20.0)
[2024-11-29 10:16] LABS: Glucose 160 mg/dL (74-106)
[2024-11-29] MEDS: FLUCONAZOLE 200MG/100ML 100 ML IV SCH (10:17)
[2024-11-29 10:18] LABS: Blood Urea Nitrogen 80 mg/dL (9-23)
--- NOTE | 2024-11-29 11:39 | DVHPN2 ---
Progress Note - Dictate Date Seen: Nov 29, 2024 Medical Necessity Reason Pt with a Central, PICC or Fol: Yes The following are medically ne: Dean Catheter Reason for dean catheter: Bladder Retention/Obstruc, Strict I&O Subjective Patient was seen and evaluated in follow-up in the ICU. Overnight, the patient was desaturating to 75% with an increased WOB and was upgraded to the ICU for closer monitoring. Patient is now on Bi-PAP 100% FiO2. WBC 16.2, BUN 80. Chest x-ray showed unchanged pulmonary edema. CM is urgently working on patient's HLOC transfer to [facility]. vital signs Vital Sign Date Time Temp Pulse Resp B/P (MAP) Pulse Ox O2 Delivery O2 Flow Rate FiO2 11/29/24 10:46 119 109/79 95 Facial BiPAP Mask 100 11/29/24 06:45 34 11/29/24 06:30 98.3 98.3 11/29/24 06:26 70 Total Intake and Output 11/28/24 11/28/24 11/29/24 15:00 23:00 07:00 Intake Total 251 ml 111 ml Output Total 900 ml 300 ml Balance -649 ml -189 ml medications Current Medications Medications Dose Ordered Sig/Nadia Route Start Time Stop Time Status Last Admin Dose Admin Vancomycin HCl 250 ml @ 200 mls/hr Q12H IV 10/08/24 14:00 UNV Diphenhydramine HCl 50 mg QHSP PRN IV 11/03/24 16:30 11/25/24 23:08 50 MG Enteral Nutritional Formula 240 ml TIDWM PO 11/11/24 18:00 11/28/24 18:00 240 ML Amiodarone HCl 200 mg Q12HR PO 11/13/24 22:00 11/28/24 21:31 200 MG Sodium Chloride 10 ml QSHIFT@10,22 IV 11/13/24 22:00 11/29/24 10:17 10 ML Acetaminophen 650 mg Q4HP PRN PO 11/16/24 11:00 11/25/24 23:08 650 MG Spironolactone 12.5 mg DAILY PO 11/17/24 10:00 11/28/24 11:58 12.5 MG Levalbuterol HCl 1.25 mg Q6HR NEB 11/24/24 18:00 11/29/24 06:20 1.25 MG Fluconazole 100 ml @ 100 mls/hr DAILY IV 11/29/24 10:00 12/02/24 09:59 11/29/24 10:17 100 MLS/HR Furosemide 100 mg/ Sodium Chloride 110 ml @ 11 mls/hr Q10H IV 11/28/24 17:00 11/28/24 19:50 11 MLS/HR objective GENERAL: Alert and oriented x 3. No acute distress. Morbidly obese. EYES: PERRL, EOMI. Anicteric. HENT: Moist mucous membranes. LUNGS: Diminished breath sounds. CARDIOVASCULAR: Irregular rate and rhythm. ABDOMEN: Soft, nontender and nondistended. EXTREMITIES: +3 pitting edema. NEUROLOGIC: No focal neurological deficits. SKIN: Warm, dry. laboratory and microbiology Laboratory Tests 11/29/24 09:30 Test 11/29/24 09:30 Range/Units Serum Glucose 160 H 74-106 mg/dL Problem List Atrial fibrillation with rapid ventricular response, newly diagnosed. Left pleural effusion. Sepsis. Hyperkalemia. Acute kidney injury. Transaminitis. Prediabetes. History of alcoholism. Morbidly obese. Severe systolic HF EF 15%, large pleural effusions. Pericardial effusion. Assessment/Plan Continued all current supportive medical care. IVFs. Echocardiogram. Amiodarone. Diuretics with Lasix. Nebulized breathing treatments. Additional plan as per the hospital course. Critical care time of 45 minutes provided to include time spent evaluation of patient at bedside, when appropriate patient/family education for diagnosis, treatment plan, review of pertinent medical information and discussion of care with specialty providers and PCP. Dietary Evaluation Review Comments: 1. Refer to CDE on DC for weight management 2. Continue current plan of care Expected Outcomes/Goals: To meet >75% estimated needs Fu 3-5 days Plan discussed with: Patient XIOMY JERONIMO MD Nov 29, 2024 11:20
--- NOTE | 2024-11-29 12:14 | DVHPN2 ---
Assessment/Plan Assessment/Plan progress note 64 M with HFrEF 15%, afib on Eliquis, recurrent PLEF, morbid obesity with prolonged ICU and medsurge admission. [facility] accepted pending insurance. iso pressor recs, leukocytosis, will reintroduce iv abx coverage with cefepime. improving kidney function, adequate diuresis on drips. seen today, worsening resp status and higher o2 recs again. increased lasix to 10. trial with bipap. likely worsening fluid overload. HLOC transfer pending Physical exam obese aox4 JVD cannot be observed dry MM PERLLA mild crackles s1 s2 irregular abdomen soft b/l LE edema Labs ekg imaging reviewed Assessment and plan Acute CHF exacerbation with systolic dysfunction Heart failure with reduced ejection fraction 15% Pericardial effusion not in tamponade Recurrent pleural effusion s/p throacentesis AFib with RVR , currently rate controlled Acute kidney injury 2/2 VMN now CKD 3b History of alcoholism Morbid obesity class I OHS/JEN with chronic CO2 retention Hypotension on midodrine Pericardial effusion Persistent hypokalemia dc diamox switch to bumex aim for -500 daily now on lasix drip failed conversion to po, will reattempt on a later date amio for rate control potassium replacement scheduled, hold today midodrine s/p dobu and dopa (ectopy, dcd) lifevest bedside c/w Eliquis and asa pt protonix restart abx coverage with cefepime, no alergies noted wound consult fluconazole diet mech soft dvt ppx on eliquis full code poor prognosis critical care time 45 minutes Plan discussed with: Patient My Orders Orders - IDALMIS DIAZ MD Procedure Category Date Status Time Fluconazole PHA 11/29/24 In Process 200mg/100ml (Diflucan 10:00 Sodium Chl 0.9% PHA 11/28/24 In Process (So... W/Furosemide 17:00 Abg W/ Co-Ox RT 11/29/24 Logged 08:23 BIPAP RT 11/29/24 Logged 08:23 Chest Portable XY 11/29/24 Resulted 09:24 Date of Service: Nov 29, 2024 Billing Provider: IDALMIS DIAZ MD Common Visit Codes: 05939-[id number] CARE 30-74 MIN IDALMIS DIAZ MD Nov 29, 2024 12:14
[2024-11-29] MEDS: BUMETANIDE INJECTION 25 MG in GIVE UN-DILUTED 0 ML IV SCH (15:14)
--- NOTE | 2024-11-29 17:33 | DVHPN2 ---
Progress Note Date Seen: Nov 29, 2024 Medical Necessity Reason Pt with a Central, PICC or Fol: Yes The following are medically ne: Dean Catheter Reason for dean catheter: Bladder Retention/Obstruc, Strict I&O Subjective Patient reports: Other (Events noted patient upgraded to as increase in O2 requirements discussed with hospitalist) Review of Systems: Deferred Objective vital signs Vital Sign Date Time Temp Pulse Resp B/P (MAP) Pulse Ox O2 Delivery O2 Flow Rate FiO2 11/29/24 16:00 120 98/68 97 Nasal BiPAP Mask 100 11/29/24 14:30 17 11/29/24 12:00 97.0 97.0 11/29/24 08:00 70 Total Intake and Output 11/28/24 11/28/24 11/29/24 15:00 23:00 07:00 Intake Total 251 ml 122 ml Output Total 900 ml 300 ml Balance -649 ml -178 ml medications Current Medications Medications Dose Ordered Sig/Nadia Route Start Time Stop Time Status Last Admin Dose Admin Vancomycin HCl 250 ml @ 200 mls/hr Q12H IV 10/08/24 14:00 UNV Diphenhydramine HCl 50 mg QHSP PRN IV 11/03/24 16:30 11/25/24 23:08 50 MG Enteral Nutritional Formula 240 ml TIDWM PO 11/11/24 18:00 11/28/24 18:00 240 ML Amiodarone HCl 200 mg Q12HR PO 11/13/24 22:00 11/28/24 21:31 200 MG Sodium Chloride 10 ml QSHIFT@10,22 IV 11/13/24 22:00 11/29/24 10:17 10 ML Acetaminophen 650 mg Q4HP PRN PO 11/16/24 11:00 11/25/24 23:08 650 MG Spironolactone 12.5 mg DAILY PO 11/17/24 10:00 11/28/24 11:58 12.5 MG Levalbuterol HCl 1.25 mg Q6HR NEB 11/24/24 18:00 11/29/24 12:25 1.25 MG Fluconazole 100 ml @ 100 mls/hr DAILY IV 11/29/24 10:00 12/02/24 09:59 11/29/24 10:17 100 MLS/HR Bumetanide 25 mg/ Miscellaneous 100 ml @ 4 mls/hr Q24H IV 11/29/24 14:45 11/29/24 15:14 4 MLS/HR Examination: GENERAL:Abnormal, LUNGS:Abnormal, CVS:Abnormal, MSK:Abnormal, SKIN:Abnormal, NEURO:Normal laboratory and microbiology Laboratory Tests 11/29/24 09:30 Test 11/29/24 09:30 Range/Units Serum Glucose 160 H 74-106 mg/dL Microbiology Date/Time Source Procedure Growth Status 11/23/24 13:53 Urine - Dean Port Urine Culture - Final Presumptive Heaven albicans Complete 11/09/24 23:59 Nose MRSA Screen - Final Complete 10/23/24 11:25 Pleural Fluid Gram Stain - Final Complete 10/23/24 11:25 Pleural Fluid Aerobic Culture - Final Complete 10/05/24 19:19 Blood Blood Culture - Final NO GROWTH AFTER 5 DAYS OF INCUBATION. Complete Problem List/Assessment/Plan Problem List/Assessment/Plan Acute kidney injury due to hypotension/cardiorenal etiology ckd cr 1.1 on admission severe systolic HF EF 15%, large pleural effusions s/p thoracentesis AFib with RVR s/p Shock likely cardiogenic pericardial effusion afib RVR Hyponatremia Hypokalemia Metabolic alkalosis secondary to diuretics Acute hypoxic respiratory failure Recommendations Switch to Bumex drip Labs this are AM may not be accurate repeat labs ordered , looks okay renal function HLOC pending Upgraded to icu Plan discussed with: Patient My Orders My Orders Orders - DINA FORBES MD Procedure Category Date Status Time Give Un-Diluted PHA 11/29/24 In Process (Gi... W/Bumetanide 14:45 Metolazone (Zaroxolyn) PHA 11/29/24 Verified 17:30 Metolazone (Zaroxolyn) PHA 11/30/24 Verified 10:00 Dietary Evaluation Review Comments: 1. Refer to CDE on DC for weight management 2. Continue current plan of care Expected Outcomes/Goals: To meet >75% estimated needs Fu 3-5 days DINA FORBES MD Nov 29, 2024 17:33
--- NOTE | 2024-11-29 17:57 | DVHSR ---
APPROVED REPORT EXAM: Two-dimensional and M-mode echocardiogram with Doppler and color Doppler. Blood Pressure: 102/68 mmHg INDICATION Check for RV function RISK FACTORS Height: 6'2", DIMENSIONS LVDd3.4 (3.8-5.7cm)LA (2D)3.4 (1.9-4.0cm)Aortic Root (2.0-3.7cm) LVDs2.7 (2.5-4.0cm)LA (MM) (1.9-4.0cm)Aortic Cusp Exc (1.5-2.0cm) EF (%) 45.0 (55-70%)Rt. Atrium (1.9-4.0cm)Asc. Aorta3.0 cm IVSd1.0 (0.7-1.1cm)RV (D) (1.8-2.4cm) PWd1.3 (0.7-1.1cm) Mitral Valve MitralMitral Stenosis E wave0.58m/sMV Mean GR.mmHg E/A ratio0.02D MVAcm2 Aortic Valve Aortic ValveAortic Stenosis LVOT Diameter2.4 (1.8-2.4cm)Doppler AVAcm2 Tricuspid Valve TR Velocity1.90m/s [id number] Conclusion A LARGE PERICARDIAL EFFUSION IS WELL SEEN AMOUNT OF PERICARDIAL EFFUSION IS MORE POTERIORLY . POSTERIOR EFFUSION IS ABOUT 2.5 CM ANTERIOR EFFUSION IS ABOUT 1.5 CM NO PERICARDIAL TAMPONADE HYPERDYNAMIC LV DUE TO TACHYCARDIAL NORMAL VALVES
--- NOTE | 2024-11-29 20:44 | DVHPN ---
DATE: 11/29/2024 ROOM NUMBER: ICU 104 SUBJECTIVE: I came to see the patient and plan to do pericardial synthesis because of the large pericardial effusion. The nurse, I came with at 5:00 p.m. The nursing staff during daytime informed me that the patient is going to [facility]. The family would like to have the procedure done at [facility]. I also took over pathology laboratory director staff over there. Her name is Jennyfer and also nurse, Andrey. They were there and so my plan was to do pericardial synthesis today in pathology laboratory director because of the large pericardial effusion. However, I don't see any evidence of pericardial tamponade and the family, however, decided to have it done at [facility]. The plan has been canceled to have it done here. The nurse again came back to see the patient at 7:30 p.m. and during the p.m. time the nurse asked me to sign all the transfer paper and I have signed it. The patient is currently stable. Blood pressure 102/68, heart rate is 110 per minute. The report of echocardiography has been also dictated and is available. Sabra Kaminski MD MP/REJI/SHAWN TID: [id number] RECEIPT: [id number]
[2024-11-30] VITALS (82 sets, daily range): BP systolic 87–125; BP diastolic 48–90; PULSE 121–130; RESP 12–28; TEMP 97.5–98.7; O2SAT 91–98
[2024-11-30 04:14] LABS: Sodium 137 mmol/L (136-145)
[2024-11-30 04:15] LABS: Anion Gap 12 (5-15); Calcium 9.2 mg/dL (8.7-10.4)
[2024-11-30 04:20] LABS: BUN/Creatinine Ratio 53.8 (10.0-20.0); Hematocrit 44.9 % (41.0-53.0); Hemoglobin 15.4 g/dL (13.5-17.5); Mean Corpuscular Hemoglobin 31.6 pg (28.0-32.0); Mean Corpuscular Volume 92.0 fL (80.0-100.0)
[2024-11-30 04:33] LABS: Blood Urea Nitrogen 64 mg/dL (9-23); Carbon Dioxide 32 mmol/L (20-31); Chloride 93 mmol/L (98-107); Glucose 132 mg/dL (74-106); Potassium 3.2 mmol/L (3.5-5.1)
[2024-11-30 05:01] LABS: Stomatocytes Moderate; Total Cells Counted 100.0 (100)
[2024-11-30 07:38] LABS: Base Excess 7.1 mmol/L (-2.0-3.0)
--- NOTE | 2024-11-30 07:48 | ECG ---
[facility] Test Date: 2024-11-29 Test Time: 17:25:14 Pat Name: REYMUNDO WILDE Department: icu Room: [address] [place] [address] Gender: M Document Processor: Kenneth : 1960 Requested By: XIOMY JERONIMO Order Number: [id number] Reading MD: Mahin Gracia Measurements Intervals Baker Rate: 108 P: 0 MT: 155 QRS: 5 QRSD: 81 T: 174 QT: 330 QTc: 443 Interpretive Statements Sinus tachycardia Ventricular premature complex Probable anterolateral infarct, age indeterm Abnormal T, consider ischemia, lateral leads Electronically Signed On 12-03-2024 21:38:39 PDT by Mahin Gracia Please click the below link to view image of tracing.
[2024-11-30] MEDS: POTASSIUM CHL 20MEQ/100ML 100 ML IV SCH ×2 (12:18→22:54)
--- NOTE | 2024-11-30 13:15 | DVHPN2 ---
Progress Note - Dictate Date Seen: Nov 30, 2024 Medical Necessity Reason Pt with a Central, PICC or Fol: Yes The following are medically ne: Dean Catheter Reason for dean catheter: Bladder Retention/Obstruc, Strict I&O Subjective Patient was seen and evaluated in follow-up in the ICU. Patient is on BI-PAP at 70% FiO2. Repeat echocardiogram revealed a large pericardial effusion is well seen. Amount of pericardial effusion is more posteriorly. Posterior effusion is about 2.5 cm. Anterior effusion is about 1.5 cm. No pericardial tamponade. Hyperdynamic LV due to tachycardia. Normal valves. WBC 14.9, K 3.2, CL 93, CO2 32, BUN 64. Per CM, the patient's family is requesting [facility] for HLOC, pending bed assignment and possible transport by [facility]. Patient's family has requested for pericardial synthesis procedure to be performed at [facility]. vital signs Vital Sign Date Time Temp Pulse Resp B/P (MAP) Pulse Ox O2 Delivery O2 Flow Rate FiO2 11/30/24 12:09 124 101/78 95 Facial BiPAP Mask 70 11/30/24 07:00 24 11/30/24 04:00 97.5 97.5 11/29/24 08:00 70 Total Intake and Output 11/29/24 11/29/24 11/30/24 15:00 23:00 07:00 Intake Total 188 ml 82 ml 32 ml Output Total 850 ml 1600 ml Balance 188 ml -768 ml -1568 ml medications Current Medications Medications Dose Ordered Sig/Nadia Route Start Time Stop Time Status Last Admin Dose Admin Vancomycin HCl 250 ml @ 200 mls/hr Q12H IV 10/08/24 14:00 UNV Diphenhydramine HCl 50 mg QHSP PRN IV 11/03/24 16:30 11/25/24 23:08 50 MG Enteral Nutritional Formula 240 ml TIDWM PO 11/11/24 18:00 11/28/24 18:00 240 ML Amiodarone HCl 200 mg Q12HR PO 11/13/24 22:00 11/28/24 21:31 200 MG Sodium Chloride 10 ml QSHIFT@10,22 IV 11/13/24 22:00 11/30/24 10:53 10 ML Acetaminophen 650 mg Q4HP PRN PO 11/16/24 11:00 11/25/24 23:08 650 MG Spironolactone 12.5 mg DAILY PO 11/17/24 10:00 11/28/24 11:58 12.5 MG Levalbuterol HCl 1.25 mg Q6HR NEB 11/24/24 18:00 11/30/24 06:55 1.25 MG Fluconazole 100 ml @ 100 mls/hr DAILY IV 11/29/24 10:00 12/02/24 09:59 11/30/24 10:53 100 MLS/HR Bumetanide 25 mg/ Miscellaneous 100 ml @ 4 mls/hr Q24H IV 11/29/24 14:45 11/30/24 05:26 4 MLS/HR Metolazone 10 mg DAILY PO 11/30/24 10:00 Potassium Chloride 100 ml @ 50 mls/hr Q2H IV 11/30/24 11:30 11/30/24 15:29 objective GENERAL: Alert and oriented x 3. No acute distress. Morbidly obese. EYES: PERRL, EOMI. Anicteric. HENT: Moist mucous membranes. LUNGS: Diminished breath sounds. CARDIOVASCULAR: Irregular rate and rhythm. ABDOMEN: Soft, nontender and nondistended. EXTREMITIES: +3 pitting edema. NEUROLOGIC: No focal neurological deficits. SKIN: Warm, dry. laboratory and microbiology Laboratory Tests 11/30/24 03:27 Test 11/30/24 03:27 Range/Units Serum Glucose 132 H 74-106 mg/dL Problem List Atrial fibrillation with rapid ventricular response, newly diagnosed. Left pleural effusion. Sepsis. Hyperkalemia. Acute kidney injury. Transaminitis. Prediabetes. History of alcoholism. Morbidly obese. Severe systolic HF EF 15%, large pleural effusions. Pericardial effusion. Assessment/Plan Continued all current supportive medical care. IVFs. Diuretics with Bumex. Nebulized breathing treatments. Additional plan as per the hospital course. Critical care time of 45 minutes provided to include time spent evaluation of patient at bedside, when appropriate patient/family education for diagnosis, treatment plan, review of pertinent medical information and discussion of care with specialty providers and PCP. Dietary Evaluation Review Comments: 1. Refer to CDE on DC for weight management 2. Continue current plan of care Expected Outcomes/Goals: To meet >75% estimated needs Fu 3-5 days Plan discussed with: Patient XIOMY JERONIMO MD Nov 30, 2024 12:35
[2024-11-30] MEDS ORDERED: CLINIMIX PER PHARMACY 0 ML IV SCH (13:45)
--- NOTE | 2024-11-30 13:51 | DVHPN2 ---
Progress Note - Dictate Date Seen: Nov 30, 2024 Medical Necessity Reason Pt with a Central, PICC or Fol: Yes The following are medically ne: Dean Catheter Reason for dean catheter: Bladder Retention/Obstruc, Strict I&O Subjective Patient's daughter at bedside, patient seen in ICU. vital signs Vital Sign Date Time Temp Pulse Resp B/P (MAP) Pulse Ox O2 Delivery O2 Flow Rate FiO2 11/30/24 12:09 124 101/78 95 Facial BiPAP Mask 70 11/30/24 11:27 25 11/30/24 04:00 97.5 97.5 11/29/24 08:00 70 Total Intake and Output 11/29/24 11/29/24 11/30/24 15:00 23:00 07:00 Intake Total 188 ml 82 ml 32 ml Output Total 850 ml 1600 ml Balance 188 ml -768 ml -1568 ml medications Current Medications Medications Dose Ordered Sig/Nadia Route Start Time Stop Time Status Last Admin Dose Admin Vancomycin HCl 250 ml @ 200 mls/hr Q12H IV 10/08/24 14:00 UNV Diphenhydramine HCl 50 mg QHSP PRN IV 11/03/24 16:30 11/25/24 23:08 50 MG Enteral Nutritional Formula 240 ml TIDWM PO 11/11/24 18:00 11/28/24 18:00 240 ML Amiodarone HCl 200 mg Q12HR PO 11/13/24 22:00 11/28/24 21:31 200 MG Sodium Chloride 10 ml QSHIFT@10,22 IV 11/13/24 22:00 11/30/24 10:53 10 ML Acetaminophen 650 mg Q4HP PRN PO 11/16/24 11:00 11/25/24 23:08 650 MG Spironolactone 12.5 mg DAILY PO 11/17/24 10:00 11/28/24 11:58 12.5 MG Levalbuterol HCl 1.25 mg Q6HR NEB 11/24/24 18:00 11/30/24 06:55 1.25 MG Fluconazole 100 ml @ 100 mls/hr DAILY IV 11/29/24 10:00 12/02/24 09:59 11/30/24 10:53 100 MLS/HR Bumetanide 25 mg/ Miscellaneous 100 ml @ 4 mls/hr Q24H IV 11/29/24 14:45 11/30/24 05:26 4 MLS/HR Metolazone 10 mg DAILY PO 11/30/24 10:00 Potassium Chloride 100 ml @ 50 mls/hr Q2H IV 11/30/24 11:30 11/30/24 15:29 11/30/24 12:18 50 MLS/HR Amino Acids 0 ml @ 0 mls/hr PER PHARMACY IV 11/30/24 13:45 UNV objective Gen: nad heent: nc/at, mmm lungs: Diminished breath sounds cvs: No rub abd: soft, bowel sounds audible ext: + edema laboratory and microbiology Laboratory Tests 11/30/24 03:27 Test 11/30/24 03:27 Range/Units Serum Glucose 132 H 74-106 mg/dL Assessment/Plan Acute kidney injury due to hypotension ckd cr 1.1 on admission severe systolic HF EF 15%, large pleural effusions s/p thoracentesis pericardial effusion afib RVR metabolic alkalosis - supplemental potassium IV - we will repeat basic chemistry panel at 1800 - discussed plan of care from Nephrology perspective with patient and patient's daughter. - noted plans for transfer to higher level of care for LVAD. Dietary Evaluation Review Comments: 1. Refer to CDE on DC for weight management 2. Continue current plan of care Expected Outcomes/Goals: To meet >75% estimated needs Fu 3-5 days Plan discussed with: Daughter LEELA GERONIMO MD Nov 30, 2024 13:51
--- NOTE | 2024-11-30 14:35 | DVHDS2 ---
Discharge Summary Date of Admission Oct 05, 2024 at 22:16 Date of Discharge: Nov 30, 2024 Labs/Diagnostic Data: Laboratory Results Test 11/30/24 07:12 11/30/24 03:27 11/29/24 09:30 11/29/24 09:00 Blood Gas Specimen Type Arterial Blood Gas Sample Site Right radial Blood Gas Patient Temperature 37.0 Arterial Blood Date Drawn [id number] Arterial Blood pH 7.521 (7.350-7.450) Arterial Blood Partial Pressure CO2 37.8 mmHg (35.0-48.0) Arterial Blood Partial Pressure O2 72.7 mmHg (83.0-108.0) Arterial Blood HCO3 30.2 mmol/L (21.0-28.0) Arterial Blood Oxygen Saturation 94.5 % (94.0-98.0) Arterial Blood Base Excess 7.1 mmol/L (-2.0-3.0) Arterial Blood Oxyhemoglobin 93.5 % (94.0-98.0) Arterial Blood Carboxyhemoglobin 0.6 % (0.5-1.5) Arterial Blood Methemoglobin 0.5 % (0.0-1.5) Ramakrishna Test Modified Blood Gas Total Hemoglobin 16.00 g/dL (13.5-17.5) Blood Gas Set Respiration Rate 14.0 Blood Gas Modality Mask - bipap FiO2 % 75.0 Blood Gas EPAP 6 Blood Gas IPAP 12 White Blood Count 14.9 10^3/uL (4.4-10.8) Red Blood Count 4.88 10^6/uL (4.5-5.90) Hemoglobin 15.4 g/dL (13.5-17.5) Hematocrit 44.9 % (41.0-53.0) Mean Corpuscular Volume 92.0 fL (80.0-100.0) Mean Corpuscular Hemoglobin 31.6 pg (28.0-32.0) Mean Corpuscular Hemoglobin Concent 34.3 g/dL (32.0-36.0) Red Cell Distribution Width 17.8 % (11.8-14.3) Platelet Count 288 10^3/uL (140-450) Mean Platelet Volume 7.8 fL (6.9-10.8) Neutrophils (%) (Auto) % (37.0-80.0) Lymphocytes (%) (Auto) % (10.0-50.0) Monocytes (%) (Auto) % (0.0-12.0) Basophils (%) (Auto) % (0.0-2.0) Neutrophils # (Auto) 10 ^3/uL (1.6-8.6) Lymphocytes # (Auto) 10 ^3/uL (0.4-5.4) Monocytes # (Auto) 10 ^3/uL (0-1.3) Differential Total Cells Counted 100.0 (100) Neutrophils % (Manual) 90 (37.0-80.0) Band Neutrophils % (Manual) 2 Lymphocytes % (Manual) 5 (10.0-50.0) Monocytes % (Manual) 2 (0-12) Eosinophils % (Manual) 0 (0-7) Basophils % (Manual) 0 (0.0-2.0) Metamyelocytes % (manual) 0 Myelocytes % (Manual) 0 Promyelocytes % (Manual) 0 Blast Cells % (Manual) 0 Reactive Lymphocytes 1 Platelet Estimate Adequate Large Platelets Few Stomatocytes Moderate Sodium Level 137 mmol/L (136-145) Potassium Level 3.2 mmol/L (3.5-5.1) Chloride Level 93 mmol/L (98-107) Carbon Dioxide Level 32 mmol/L (20-31) Anion Gap 12 (5-15) Blood Urea Nitrogen 64 mg/dL (9-23) Creatinine 1.19 mg/dL (0.700-1.30) Glomerular Filtration Rate Calc 68 mL/min (>90) BUN/Creatinine Ratio 53.8 (10.0-20.0) Serum Glucose 132 mg/dL (74-106) Calcium Level 9.2 mg/dL (8.7-10.4) Eosinophils (%) (Auto) 0.1 % (0.0-7.0) Eosinophils # (Auto) 0 10 ^3/uL (0-0.8) Basophils # (Auto) 0.2 10 ^3/uL (0-0.2) Nucleated Red Blood Cells 0.1 % Magnesium Level 2.6 mg/dL (1.6-2.6) Blood Gas Liter Flow 70.00 Test 11/27/24 20:00 11/27/24 04:35 11/26/24 04:59 11/23/24 15:00 Urine Opiates Screen Neg (NEGATIVE) Urine Fentanyl Screen Neg (NEGATIVE) Urine Barbiturates Screen Neg (NEGATIVE) Urine Phencyclidine Screen Neg (NEGATIVE) Urine Amphetamines Screen Neg (NEGATIVE) Urine Benzodiazepines Screen Neg (NEGATIVE) Urine Cocaine Screen Neg (NEGATIVE) Urine Cannabinoids Screen Neg (NEGATIVE) Phosphorus Level 4.4 mg/dL (2.4-5.1) Total Bilirubin 1.8 mg/dL (0.2-1.0) Aspartate Amino Transferase (AST) 39 U/L (13-40) Alanine Aminotransferase (ALT) 48 U/L (7-40) Alkaline Phosphatase 127 U/L (46-116) Total Protein 6.3 g/dL (5.7-8.2) Albumin 4.0 g/dL (3.2-4.8) Urine Color Yellow (Yellow) Urine Clarity Clear (Clear) Urine pH 5.0 (5.0-9.0) Urine Specific [place] 1.012 (1.001-1.035) Urine Protein Negative (Negative) Urine Ketones Negative (Negative) Urine Blood 1+ /uL (Negative) Urine Nitrite Negative (Negative) Urine Bilirubin Negative (Negative) Urine Urobilinogen Normal mg/dL (Negative) Urine Leukocyte Esterase Trace /uL (Negative) Urine RBC 3 /hpf (0 - 3) Urine Microscopic WBC 3 /HPF (0-3) Urine Squamous Epithelial Cells None seen /hpf (<5) Urine Bacteria None seen /hpf (None Seen) Urine Hyaline Casts Few /lpf (0 - 2) Urine Mucus Few (None Seen) Urine Yeast (Budding) Occasional /hpf (None Urine Glucose Normal mg/dL (Normal) Test 11/16/24 11:52 11/15/24 08:49 11/14/24 17:30 11/13/24 11:26 Venous Blood pH 7.473 (7.320-7.430) Venous Blood pCO2 at Patient Temp 38.6 mmHg (38.0-54.0) Venous Blood pO2 at Patient Temp < 36.5 mmHg (23.0-48.0) Venous Blood HCO3 27.7 mmol/L (22.0-29.0) Venous Blood Base Excess 3.9 mmol/L (-2.0-3.0) Blood Gas Comments Urine Osmolality 340 mOsm/kg Prothrombin Time 13.5 sec (9.3-11.8) Prothrombin Time INR 1.31 (0.9-1.15) Activated Partial Thromboplast Time 30.5 SEC (24.5-34.5) Test 11/11/24 16:33 11/11/24 12:00 11/10/24 12:46 11/10/24 00:47 Venous Bld O2 Saturation (Measured) 56.1 % (60.0-85.0) Venous Blood Total Hemoglobin 17.3 g/dL (13.5-17.5) Venous Blood Oxyhemoglobin 55.4 % (0.0-79.0) Venous Blood Carboxyhemoglobin 0.9 % (0.5-1.5) Venous Blood Methemoglobin 0.3 % (0.0-1.5) Blood Gas Critical Value Read Back Yes Blood Gas Notified Whom Dr. walden Blood Gas Notified Time [id number] Blood Gas Notified By Darrian villegas, evans POC Glucose 274 mg/dl (70-106) B-Type Natriuretic Peptide 204.00 pg/mL (0-100) Test 11/03/24 22:25 10/31/24 10:00 10/23/24 11:25 10/16/24 06:12 Troponin I High Sensitivity 11 ng/L (</=54) Urine Creatinine 49.93 mg/dL (30.0-125.0) Urine Protein/Creatinine Ratio 0.60 Urine Sodium 23 mmol/L (40-220) Urine Potassium 91 mmol/L (12-62) Urine Total Protein 29.8 mg/dL (1-14) Body Fluid Source Pleural fluid Body Fluid pH 8.0 Body Fluid WBC (Manual) 817 CUMM (0-200) Body Fluid RBC (Manual) 03631 CUMM (0-2000) Body Fluid Mononuclear Cells 90 % Body Fluid Polymorphonuclear Cells 10 % (0-25) Body Fluid Glucose 151 mg/dL (.) Body Fluid Total Protein 2.5 g/dL (.) Body Fluid Lactate Dehydrogenase 532 IU/L (.) Digoxin Level 0.97 ng/mL (0.8-2) Test 10/09/24 22:20 10/08/24 05:25 10/06/24 10:05 10/05/24 21:09 Vancomycin Level Trough 16.7 ug/mL (5-10) Random Vancomycin Level 11.3 ug/mL (5-10) Thyroid Stimulating Hormone (TSH) 2.54 uIU/mL (0.55-4.78) Lactic Acid Level 2.9 mmol/L (0.4-2.0) Test 10/05/24 18:40 10/05/24 18:14 Influenza Type A Antigen Negative (Negative) Influenza Type B Antigen Negative (Negative) SARS-CoV-2 Antigen (Rapid) Negative (NEGATIVE) Hemoglobin A1c 6.1 % A1C (<5.7) Other Laboratory Tests 11/30/24 03:27 Brief Hx & Hospital Course: Mr. courtney, 64 M with HFrEF 15%, afib, recurrent HFrEF ADHF, morbid obesity with prolonged ICU and medsurg admission. Patient has had a prolonged stay for HFrEF 15%, Patient did not have any angiograms/angiography done , he has been try to diurese with Lasix, Diamox, metolazone,. For multiple times we have tried to wean patient off of IV drips inpatient goes into volume overload despite trying IV Lasix. Further studies have shown patient is in cardiogenic shock, EF 15%. Patient has had pleural effusions which are transudative in consistent with volume overload,/CHF. Patient had a acute episode of dysphagia an esophagram done is normal, This is likely due to gut wall edema from CHF. Patient has been requiring continuous BiPAP and recently changed from Lasix to Bumex which is improving urine output. Patient remains off dobutamine. Currently plan is to transfer patient to higher level of care for assessment of heart transplant. diagnosis: Acute CHF exacerbation with systolic dysfunction Heart failure with reduced ejection fraction 15% Pericardial effusion not in tamponade Recurrent pleural effusion s/p throacentesis AFib with RVR , currently rate controlled Acute kidney injury 2/2 VMN now CKD 3b History of alcoholism Morbid obesity class I OHS/JEN with chronic CO2 retention Hypotension on midodrine Pericardial effusion Persistent hypokalemia discharge plan: - continue medications per JUN - transfer to [facility] for heart transplant evaluation. Condition at Discharge: Higher Level of Care Final Diagnosis/Problems List Acute CHF exacerbation with systolic dysfunction Heart failure with reduced ejection fraction 15% Pericardial effusion not in tamponade Recurrent pleural effusion s/p throacentesis AFib with RVR , currently rate controlled Acute kidney injury 2/2 VMN now CKD 3b History of alcoholism Morbid obesity class I OHS/JEN with chronic CO2 retention Hypotension on midodrine Pericardial effusion Persistent hypokalemia Discharge Disposition: Acute Care Facility Discharge Statement: "Patient was advised to return to the ER or call 911 if any headaches, dizziness, shortness of breath, chest pain, abdominal pain, bleeding, fevers, or worsening of medical condition. Patient was counseled about treatment plan, medications, possible side effects, patientverbalized understanding. All questions were answered to the best of my ability. This discharge took greater then 30 minutes in planning, reviewing documentation, counseling the patient, and discussing with other team members." ASSESSMENT ASSESSMENT Assessment Date of Service: Nov 30, 2024 Billing Provider: DESMOND MOODY MD Common Visit Codes: [id number]/OBS DISCH DAY >30min, [id number] CARE 30-74 MIN DESMOND MOODY MD Nov 30, 2024 14:35
--- NOTE | 2024-11-30 16:35 | DVHPN2 ---
Subjective Patient still some shortness of breath, lower extremity edema still significant despite complete diuresis. Patient complains of ongoing weakness and leg swelling being bothersome. Reviewed: Care Plan, H&P, Labs, Medications, Radiology Changes from previous H/P or p: No Changes General: Per HPI Eyes: No Pain, No Vision change, No Conjunctivae inflammation, No Eyelid inflammation, No Other, No Redness ENT: No Ear pain, No Ear discharge, No Nose pain, No Nose discharge, No Nose congestion, No Mouth pain, No Mouth swelling, No Throat pain, No Throat swelling, No Other Cardiovascular: Palpitations Respiratory: Shortness of breath Gastrointestinal: No Nausea, No Vomiting, No Abdominal Pain, No Diarrhea, No Constipation, No Melena, No Hematochezia, No Other Genitourinary: No Dysuria, No Frequency, No Incontinence, No Hematuria, No Retention, No Other Musculoskeletal: No other, No neck pain, No shoulder pain, No arm pain, No back pain, No hand pain, No leg pain, No foot pain Skin: No Rash, No Lesions, No Jaundice, No Bruising, No Other Objective Vitals Vital Signs Date Time Temp Pulse Resp B/P (MAP) Pulse Ox O2 Delivery O2 Flow Rate FiO2 11/30/24 16:19 122 99/78 95 Facial BiPAP Mask 70 11/30/24 14:00 19 11/30/24 08:00 98.7 98.7 11/29/24 08:00 70 Intake/Output Intake and Output 11/30/24 07:00 Intake Total 306 ml Output Total 2450 ml Balance -2144 ml Intake Oral 50 ml IV Total 256 ml Output Urine Total 2450 ml Exam GEN: Healthy appearing, well-developed, NAD. HEENT: NC/AT; MMM. CV: RRR, no m/r/g.. R IJ CVC LUNGS: Decreased air movement and rales in LL BL. ABD: Soft, NT/ND, NBS, no masses or organomegaly. EXT: skin Warm, well perfused. no rashes. Edema due to 1+ up to knees bilaterally. NEURO: Ambulating with no limitations. No focal deficits. General Appearance: Alert, Oriented X3, mild distress HEENT: Atraumatic, PERRLA, EOMI, Mucous membr. moist/pink Neck: Supple Lungs: Other Cardiovascular: Regular rate, Normal S1, Normal S2, No murmurs Abdomen: Normal bowel sounds, Soft, No tenderness Extremities: Other Neuro: Cranial nerves 3-12 NL Psych/Mental Status: Mental status NL Medications Current Medications Medications Dose Ordered Sig/Nadia Route Start Time Stop Time Status Last Admin Dose Admin Vancomycin HCl 250 ml @ 200 mls/hr Q12H IV 10/08/24 14:00 UNV Diphenhydramine HCl 50 mg QHSP PRN IV 11/03/24 16:30 11/25/24 23:08 50 MG Enteral Nutritional Formula 240 ml TIDWM PO 11/11/24 18:00 11/28/24 18:00 240 ML Amiodarone HCl 200 mg Q12HR PO 11/13/24 22:00 11/28/24 21:31 200 MG Sodium Chloride 10 ml QSHIFT@10,22 IV 11/13/24 22:00 11/30/24 10:53 10 ML Acetaminophen 650 mg Q4HP PRN PO 11/16/24 11:00 11/25/24 23:08 650 MG Spironolactone 12.5 mg DAILY PO 11/17/24 10:00 11/28/24 11:58 12.5 MG Levalbuterol HCl 1.25 mg Q6HR NEB 11/24/24 18:00 11/30/24 06:55 1.25 MG Fluconazole 100 ml @ 100 mls/hr DAILY IV 11/29/24 10:00 12/02/24 09:59 11/30/24 10:53 100 MLS/HR Bumetanide 25 mg/ Miscellaneous 100 ml @ 4 mls/hr Q24H IV 11/29/24 14:45 11/30/24 05:26 4 MLS/HR Metolazone 10 mg DAILY PO 11/30/24 10:00 Amino Acids 0 ml @ 0 mls/hr PER PHARMACY IV 11/30/24 13:45 Diagnostic Test (Pha) 1 strip Q6HR 12/01/24 00:00 Insulin Human Regular FOLLOW SLIDING SCALE Q6HR SC 12/01/24 00:00 Dextrose 50 ml UD IV 12/01/24 00:00 Amino Acids/ Electrolytes/ Dextrose 1,000 ml @ 41 mls/hr DAILY@2200 IV 11/30/24 22:00 Laboratory Results Laboratory Tests 11/30/24 03:27 Chemistry Test 11/30/24 03:27 Calcium Level 9.2 mg/dL (8.7-10.4) Urinalysis Test 10/31/24 10:00 11/14/24 17:30 11/23/24 15:00 Urine Creatinine 49.93 mg/dL (30.0-125.0) Urine Protein/Creatinine Ratio 0.60 Urine Sodium 23 mmol/L (40-220) L Urine Potassium 91 mmol/L (12-62) H Urine Total Protein 29.8 mg/dL (1-14) H Urine Osmolality 340 mOsm/kg Urine Color Yellow (Yellow) Urine Clarity Clear (Clear) Urine pH 5.0 (5.0-9.0) Urine Specific [place] 1.012 (1.001-1.035) Urine Protein Negative (Negative) Urine Ketones Negative (Negative) Urine Blood 1+ /uL (Negative) H Urine Nitrite Negative (Negative) Urine Bilirubin Negative (Negative) Urine Urobilinogen Normal mg/dL (Negative) Urine Leukocyte Esterase Trace /uL (Negative) Urine RBC 3 /hpf (0 - 3) Urine Microscopic WBC 3 /HPF (0-3) Urine Squamous Epithelial Cells None seen /hpf (<5) Urine Bacteria None seen /hpf (None Seen) Urine Hyaline Casts Few /lpf (0 - 2) Urine Mucus Few (None Seen) Urine Yeast (Budding) Occasional /hpf (None Urine Glucose Normal mg/dL (Normal) Blood Gas Results Test 11/30/24 07:12 Arterial Blood pH 7.521 (7.350-7.450) FiO2 % 75.0 Microbiology Microbiology Date/Time Source Procedure Growth Status 11/29/24 06:30 Nose MRSA Screen - Final Complete 11/23/24 13:53 Urine - [place] Urine Culture - Final Presumptive [place] albicans Complete 10/23/24 11:25 Pleural Fluid Gram Stain - Final Complete 10/23/24 11:25 Pleural Fluid Aerobic Culture - Final Complete 10/05/24 19:19 Blood Blood Culture - Final NO GROWTH AFTER 5 DAYS OF INCUBATION. Complete Labs and/or images reviewed: Labs reviewed by me, Image(s) reviewed by me Assessment/Plan Assessment/Plan progress note 64 M with HFrEF 15%, afib on Eliquis, recurrent PLEF, morbid obesity with prolonged ICU and medsurge admission. [facility] accepted pending insurance. iso pressor recs, leukocytosis, will reintroduce iv abx coverage with cefepime. improving kidney function, adequate diuresis on drips. 11/30: Patient was ready for transfer yesterday but some issues came up with patient being on BiPAP and transfer was held off and the ICU bed at [facility] was lost. Today I had put the discharge summary and patient was ready for transfer but after receiving call from [facility] testing director who had discussed with Dr. Dalila Kaminski about patient but was not able to get adequate information about the patient. The testing director has spoken to me and believes the patient is unstable for transfer and needs intubation, inotrope, diuresis, pericardial drain for the pericardial effusion. We will try to get these things started to stabilize patient for transfer. We will restart discussions for transfer with [facility] heart transplant. Primary physician and family want to avoid intubation as sensitive extubation we will be poor. Starting dobutamine fixed dose 2.5, increasing Bumex to 1.5. Physical exam obese aox4 JVD cannot be observed dry MM PERLLA mild crackles s1 s2 irregular abdomen soft b/l LE edema Labs ekg imaging reviewed Assessment and plan Acute CHF exacerbation with systolic dysfunction Heart failure with reduced ejection fraction 15% Pericardial effusion not in tamponade Recurrent pleural effusion s/p throacentesis AFib with RVR , currently rate controlled Acute kidney injury 2/2 VMN now CKD 3b History of alcoholism Morbid obesity class I OHS/JEN with chronic CO2 retention Hypotension on midodrine Pericardial effusion Persistent hypokalemia dc diamox switch to bumex aim for -500 daily now on Bumex drip, increasing doses failed conversion to po, will reattempt on a later date amio p.o. for rate control potassium replacement scheduled, Hold midodrine Restarting dobutamine 2.5. s/p dobu and dopa (ectopy, dcd) lifevest bedside c/w Eliquis and asa pt protonix restart abx coverage with cefepime, no alergies noted wound consult fluconazole diet mech soft dvt ppx on eliquis full code poor prognosis critical care time 45 minutes Plan discussed with: Spouse My Orders Orders - DESMOND MOODY MD Procedure Category Date Status Time Clinimix Per Pharmacy PHA 11/30/24 In Process 13:45 Discharge DISCHARGE 11/30/24 Transmitted 14:26 Glucose Blood PHA 12/01/24 In Process (Accu-Chek Comfort 00:00 Insulin R (Human) PHA 12/01/24 In Process (Insulin R) 00:00 Dextrose 50% Syringe PHA 12/01/24 In Process 00:00 Amino Acid Infusion PHA 11/30/24 In Process In D10w (Clinimix 4. 22:00 Comprehensive LAB 12/01/24 Verified Metabolic Panel 04:00 Magnesium LAB 12/01/24 Verified 04:00 Phosphorus LAB 12/01/24 Verified 04:00 Clinimix Per Pharmacy RAJAT 11/30/24 In Process 22:00 Date of Service: Nov 30, 2024 Billing Provider: DESMOND MOODY MD Common Visit Codes: [id number] CARE 30-74 MIN DESMOND MOODY MD Nov 30, 2024 16:35
[2024-11-30] MEDS: DOBUTamine 1000MCG/ML 250 ML IV SCH (17:30)
[2024-11-30] MEDS: DOBUTamine 1000MCG/ML 250 ML IV ONE (17:34)
[2024-11-30] MEDS: BUMETANIDE INJECTION 25 MG in GIVE UN-DILUTED 0 ML IV SCH (19:57)
[2024-11-30 21:19] LABS: Potassium 3.3 mmol/L (3.5-5.1)
[2024-11-30 21:25] LABS: Magnesium 2.2 mg/dL (1.6-2.6)
[2024-11-30] MEDS: AMINO ACID INFUSION IN D10W 1,000 ML IV SCH (21:55)
[2024-12-01] VITALS (81 sets, daily range): BP systolic 90–116; BP diastolic 55–85; PULSE 121–131; RESP 12–27; TEMP 97.9–99.2; O2SAT 93–97
[2024-12-01] MEDS ORDERED: DEXTROSE (50%) 50ML SYRG IV SCH
[2024-12-01] MEDS: InsuLIN REG 1unit/0.01ml Soln (100units/ml) SC SCH (00:14)
[2024-12-01] MEDS: ACCU-CHEK COMFORT CURVE STRIP VI SCH (00:14)
[2024-12-01 09:48] LABS: Alanine Aminotransferase 31 U/L (7-40); Albumin 3.3 g/dL (3.2-4.8); Anion Gap 7 (5-15); BUN/Creatinine Ratio 45.3 (10.0-20.0); Bilirubin, Total 1.2 mg/dL (0.2-1.0); Magnesium 1.8 mg/dL (1.6-2.6)
[2024-12-01 10:09] LABS: Alkaline Phosphatase 120 U/L (46-116); Blood Urea Nitrogen 53 mg/dL (9-23); Calcium 8.1 mg/dL (8.7-10.4); Carbon Dioxide 35 mmol/L (20-31); Chloride 92 mmol/L (98-107); Potassium 3.0 mmol/L (3.5-5.1); Sodium 134 mmol/L (136-145); Total Protein 5.4 g/dL (5.7-8.2)
[2024-12-01 10:10] LABS: Glucose 650 mg/dL (74-106)
[2024-12-01] MEDS: NOREPINEPHRINE BITARTRATE 32 MG in SODIUM CHL 0.9% 218 ML IV SCH (10:16)
[2024-12-01] MEDS: POTASSIUM CHL 20MEQ/100ML 100 ML IV SCH (12:48)
[2024-12-01] MEDS: SODIUM PHOSPHATES 20 MEQ in SODIUM CHL 0.9% 100 ML IV ONE (13:00)
--- NOTE | 2024-12-01 15:41 | DVHPN2 ---
Progress Note - Dictate Date Seen: Dec 01, 2024 Medical Necessity Reason Pt with a Central, PICC or Fol: Yes The following are medically ne: Dean Catheter Reason for dean catheter: Bladder Retention/Obstruc, Strict I&O Subjective Patient's daughter again at bedside. Patient appears more comfortable today on CPAP. vital signs Vital Sign Date Time Temp Pulse Resp B/P (MAP) Pulse Ox O2 Delivery O2 Flow Rate FiO2 12/01/24 15:00 131 16 100/69 (79) 94 12/01/24 14:00 Bi-Pap+ 55 55 12/01/24 12:00 98.5 98.5 12/01/24 08:00 70 Total Intake and Output 11/30/24 11/30/24 12/01/24 15:00 23:00 07:00 Intake Total 228 ml 143.0 ml 576 ml Output Total 1400 ml 2325 ml Balance 228 ml -1257.0 ml -1749 ml medications Current Medications Medications Dose Ordered Sig/Nadia Route Start Time Stop Time Status Last Admin Dose Admin Vancomycin HCl 250 ml @ 200 mls/hr Q12H IV 10/08/24 14:00 UNV Diphenhydramine HCl 50 mg QHSP PRN IV 11/03/24 16:30 11/25/24 23:08 50 MG Enteral Nutritional Formula 240 ml TIDWM PO 11/11/24 18:00 11/28/24 18:00 240 ML Amiodarone HCl 200 mg Q12HR PO 11/13/24 22:00 11/28/24 21:31 200 MG Sodium Chloride 10 ml QSHIFT@10,22 IV 11/13/24 22:00 12/01/24 10:17 10 ML Acetaminophen 650 mg Q4HP PRN PO 11/16/24 11:00 11/25/24 23:08 650 MG Spironolactone 12.5 mg DAILY PO 11/17/24 10:00 11/28/24 11:58 12.5 MG Levalbuterol HCl 1.25 mg Q6HR NEB 11/24/24 18:00 12/01/24 06:54 1.25 MG Fluconazole 100 ml @ 100 mls/hr DAILY IV 11/29/24 10:00 12/02/24 09:59 12/01/24 10:17 100 MLS/HR Metolazone 10 mg DAILY PO 11/30/24 10:00 Amino Acids 0 ml @ 0 mls/hr PER PHARMACY IV 11/30/24 13:45 Diagnostic Test (Pha) 1 strip Q6HR 12/01/24 00:00 12/01/24 11:54 1 STRIP Insulin Human Regular FOLLOW SLIDING SCALE Q6HR SC 12/01/24 00:00 12/01/24 11:55 4 UNITS Dextrose 50 ml UD IV 12/01/24 00:00 Amino Acids/ Electrolytes/ Dextrose 1,000 ml @ 41 mls/hr DAILY@2200 IV 11/30/24 22:00 11/30/24 21:55 41 MLS/HR Norepinephrine Bitartrate 32 mg/ Sodium Chloride 250 ml @ 0.938 mls/ hr Q24H IV 11/30/24 17:15 Bumetanide 25 mg/ Miscellaneous 100 ml @ 6 mls/hr [id number] IV 11/30/24 19:30 12/01/24 01:48 6 MLS/HR Potassium Chloride 100 ml @ 50 mls/hr Q2H IV 12/01/24 12:15 12/01/24 16:14 12/01/24 14:29 50 MLS/HR objective Gen: nad heent: nc/at, mmm lungs: Diminished breath sounds cvs: No rub abd: soft, bowel sounds audible ext: + edema laboratory and microbiology Laboratory Tests 12/01/24 08:35 11/30/24 03:27 Test 12/01/24 08:35 Range/Units Serum Glucose 650 #*H 74-106 mg/dL Assessment/Plan Acute kidney injury due to hypotension ckd cr 1.1 on admission severe systolic HF EF 15%, large pleural effusions s/p thoracentesis pericardial effusion afib RVR metabolic alkalosis - we will continue with potassium repletion, hypokalemia improved slightly - stable GFR, we will continue to target negative fluid balance daily - consideration for transition to intermittent dosing of loop diuretic Dietary Evaluation Review Comments: 1. Refer to CDE on DC for weight management 2. Continue current plan of care Expected Outcomes/Goals: To meet >75% estimated needs Fu 3-5 days Plan discussed with: Other LEELA GERONIMO MD Dec 01, 2024 15:40
--- NOTE | 2024-12-01 17:14 | DVHPN2 ---
Progress Note Date Seen: Dec 01, 2024 Medical Necessity Reason Pt with a Central, PICC or Fol: Yes The following are medically ne: Dean Catheter Reason for dean catheter: Bladder Retention/Obstruc, Strict I&O Subjective Patient reports: Other (Patient is a awake alert resting in bed. On BiPAP. Patient stable at this time. Continue diuresis. Swelling slowly improving. Plan to transfer patient to [facility] with [facility]. Discussed with RN and CM.) Objective vital signs Vital Sign Date Time Temp Pulse Resp B/P (MAP) Pulse Ox O2 Delivery O2 Flow Rate FiO2 12/01/24 16:50 116/79 12/01/24 16:30 130 18 95 12/01/24 16:00 97.9 97.9 12/01/24 16:00 Bi-Pap+ 55 55 12/01/24 08:00 70 Total Intake and Output 11/30/24 11/30/24 12/01/24 15:00 23:00 07:00 Intake Total 228 ml 143.0 ml 576 ml Output Total 1400 ml 2325 ml Balance 228 ml -1257.0 ml -1749 ml medications Current Medications Medications Dose Ordered Sig/Nadia Route Start Time Stop Time Status Last Admin Dose Admin Vancomycin HCl 250 ml @ 200 mls/hr Q12H IV 10/08/24 14:00 UNV Diphenhydramine HCl 50 mg QHSP PRN IV 11/03/24 16:30 11/25/24 23:08 50 MG Enteral Nutritional Formula 240 ml TIDWM PO 11/11/24 18:00 11/28/24 18:00 240 ML Amiodarone HCl 200 mg Q12HR PO 11/13/24 22:00 11/28/24 21:31 200 MG Sodium Chloride 10 ml QSHIFT@10,22 IV 11/13/24 22:00 12/01/24 10:17 10 ML Acetaminophen 650 mg Q4HP PRN PO 11/16/24 11:00 11/25/24 23:08 650 MG Spironolactone 12.5 mg DAILY PO 11/17/24 10:00 11/28/24 11:58 12.5 MG Levalbuterol HCl 1.25 mg Q6HR NEB 11/24/24 18:00 12/01/24 06:54 1.25 MG Fluconazole 100 ml @ 100 mls/hr DAILY IV 11/29/24 10:00 12/02/24 09:59 12/01/24 10:17 100 MLS/HR Metolazone 10 mg DAILY PO 11/30/24 10:00 Amino Acids 0 ml @ 0 mls/hr PER PHARMACY IV 11/30/24 13:45 Diagnostic Test (Pha) 1 strip Q6HR 12/01/24 00:00 12/01/24 16:46 1 STRIP Insulin Human Regular FOLLOW SLIDING SCALE Q6HR SC 12/01/24 00:00 12/01/24 16:42 8 UNITS Dextrose 50 ml UD IV 12/01/24 00:00 Amino Acids/ Electrolytes/ Dextrose 1,000 ml @ 41 mls/hr DAILY@2200 IV 11/30/24 22:00 11/30/24 21:55 41 MLS/HR Norepinephrine Bitartrate 32 mg/ Sodium Chloride 250 ml @ 0.938 mls/ hr Q24H IV 11/30/24 17:15 Bumetanide 25 mg/ Miscellaneous 100 ml @ 6 mls/hr [id number] IV 11/30/24 19:30 12/01/24 16:50 6 MLS/HR Examination Generally 64 years old male, resting in bed. On BiPAP. No apparent distress HEENT-atraumatic, normocephalic Heart-sinus tachycardic Lungs bilateral mild crackles Abdomen soft nontender nondistended Musculoskeletal-bilateral pedal edema Neuro-AO x3, no focal deficits laboratory and microbiology Laboratory Tests 12/01/24 08:35 11/30/24 03:27 Test 12/01/24 08:35 Range/Units Serum Glucose 650 #*H 74-106 mg/dL Microbiology Date/Time Source Procedure Growth Status 11/29/24 06:30 Nose MRSA Screen - Final Complete 11/23/24 13:53 Urine - Dean Port Urine Culture - Final Presumptive Heaven albicans Complete 10/23/24 11:25 Pleural Fluid Gram Stain - Final Complete 10/23/24 11:25 Pleural Fluid Aerobic Culture - Final Complete 10/05/24 19:19 Blood Blood Culture - Final NO GROWTH AFTER 5 DAYS OF INCUBATION. Complete Problem List/Assessment/Plan Problem List/Assessment/Plan Acute CHF exacerbation with systolic dysfunction Heart failure with reduced ejection fraction 15% Pericardial effusion not in tamponade Recurrent pleural effusion s/p throacentesis AFib with RVR , currently rate controlled Acute kidney injury 2/2 VMN now CKD 3b History of alcoholism Morbid obesity class I OHS/JEN with chronic CO2 retention Hypotension on midodrine Pericardial effusion Persistent hypokalemia dc diamox switch to bumex aim for -500 daily now on Bumex drip, increasing doses failed conversion to po, will reattempt on a later date amio p.o. for rate control potassium replacement scheduled, Hold midodrine Restarting dobutamine 2.5. s/p dobu and dopa (ectopy, dcd) lifevest bedside c/w Eliquis and asa pt protonix restart abx coverage with cefepime, no alergies noted wound consult fluconazole IV amiodarone due to on bipap pt is stable to be [place] [facility] [place] mech soft dvt ppx on eliquis full code Plan discussed with: Patient, Spouse My Orders My Orders Orders - IRVIN KLEIN MD Procedure Category Date Status Time Comprehensive LAB 12/01/24 Logged Metabolic Panel 15:43 Dietary Evaluation Review Comments: 1. Refer to CDE on DC for weight management 2. Continue current plan of care Expected Outcomes/Goals: To meet >75% estimated needs Fu 3-5 days Date of Service: Dec 01, 2024 Billing Provider: IRVIN KLEIN MD Common Visit Codes: [id number] CARE 30-74 MIN IRVIN KLEIN MD Dec 01, 2024 17:14
[2024-12-01] MEDS: AMIODARONE 360mg/200mL PREMIX 200 ML IV ONE (17:55)
[2024-12-01] MEDS: AMIODARONE BOLUS KIT 100 ML IV ONE (17:55)
--- NOTE | 2024-12-01 23:35 | DVHPN2 ---
Progress Note - Dictate Date Seen: Dec 01, 2024 Medical Necessity Reason Pt with a Central, PICC or Fol: Yes The following are medically ne: Dean Catheter Reason for dean catheter: Bladder Retention/Obstruc, Strict I&O Subjective Patient seen and examined at bedside. On BiPAP Overnight events reviewed. vital signs Vital Sign Date Time Temp Pulse Resp B/P (MAP) Pulse Ox O2 Delivery O2 Flow Rate FiO2 12/01/24 22:23 126 107/77 93 Facial BiPAP Mask 55 12/01/24 21:15 16 12/01/24 20:00 70 12/01/24 20:00 99.2 99.2 Total Intake and Output 11/30/24 11/30/24 12/01/24 15:00 23:00 07:00 Intake Total 228 ml 143.0 ml 576 ml Output Total 1400 ml 2325 ml Balance 228 ml -1257.0 ml -1749 ml medications Current Medications Medications Dose Ordered Sig/Nadia Route Start Time Stop Time Status Last Admin Dose Admin Vancomycin HCl 250 ml @ 200 mls/hr Q12H IV 10/08/24 14:00 UNV Diphenhydramine HCl 50 mg QHSP PRN IV 11/03/24 16:30 11/25/24 23:08 50 MG Enteral Nutritional Formula 240 ml TIDWM PO 11/11/24 18:00 11/28/24 18:00 240 ML Sodium Chloride 10 ml QSHIFT@10,22 IV 11/13/24 22:00 12/01/24 22:18 10 ML Acetaminophen 650 mg Q4HP PRN PO 11/16/24 11:00 11/25/24 23:08 650 MG Spironolactone 12.5 mg DAILY PO 11/17/24 10:00 11/28/24 11:58 12.5 MG Levalbuterol HCl 1.25 mg Q6HR NEB 11/24/24 18:00 12/01/24 12:00 1.25 MG Fluconazole 100 ml @ 100 mls/hr DAILY IV 11/29/24 10:00 12/02/24 09:59 12/01/24 10:17 100 MLS/HR Metolazone 10 mg DAILY PO 11/30/24 10:00 Amino Acids 0 ml @ 0 mls/hr PER PHARMACY IV 11/30/24 13:45 Diagnostic Test (Pha) 1 strip Q6HR 12/01/24 00:00 12/01/24 16:46 1 STRIP Insulin Human Regular FOLLOW SLIDING SCALE Q6HR SC 12/01/24 00:00 12/01/24 16:42 8 UNITS Dextrose 50 ml UD IV 12/01/24 00:00 Amino Acids/ Electrolytes/ Dextrose 1,000 ml @ 41 mls/hr DAILY@2200 IV 11/30/24 22:00 12/01/24 22:18 41 MLS/HR Norepinephrine Bitartrate 32 mg/ Sodium Chloride 250 ml @ 0.938 mls/ hr Q24H IV 11/30/24 17:15 Bumetanide 25 mg/ Miscellaneous 100 ml @ 6 mls/hr [id number] IV 11/30/24 19:30 12/01/24 16:50 6 MLS/HR objective Gen.: Patient lying in bed in no apparent distress. On BiPAP Head: Normocephalic, atraumatic. Eyes: EOMI/PERRLA. Ears: Normal hearing. Normal anatomy. Neck/trachea: Trachea midline, supple. Nose: Normal external anatomy. Mouth: Moist mucous membranes. Chest: Decreased air entry bilaterally. No wheezing or rhonchi. Cardiovascular: Positive S1, positive S2. Regular rate and rhythm. Abdomen: Positive bowel sounds in all 4 quadrants. Soft, non-tender, non- distended. : Deferred. Rectal: Deferred. Skin: Warm, dry. Intact. Extremities: 2+ radial pulses bilaterally. No lower extremity edema. Neuro: Awake, alert, oriented x3. No gross motor or sensory deficits. Cranial nerves II through XII intact. Gait not assessed. laboratory and microbiology Laboratory Tests 12/01/24 08:35 11/30/24 03:27 Test 12/01/24 08:35 Range/Units Serum Glucose 650 #*H 74-106 mg/dL Assessment/Plan Impression: Acute hypoxic respiratory failure On NIPPV Pleural effusions Atelectasis Hyperglycemia Severe systolic CHF with EF 15% Acute kidney injury. Obesity Plan: On BiPAP with IPAP 12, EPAP 6, FiO2 of 55 mmHg Taper FIO2 as tolerated Titrate to keep O2 sats above 92%. Chest x-ray reveals pulmonary edema, bilateral pleural effusions and atelectasis. Continue antibiotics Continue antifungal Incentive spirometry Follow up Nephrology recommendations Diurese with Bumex drip. Monitor renal function. Monitor electrolytes. Supplement as necessary. Na Phos, potassium supplementation Monitor ins and outs. Accu-Cheks, ISS. Plan for HLOC for heart transplant Follow up Cardiology recommendations Diet and lifestyle modifications for weight reduction Obesity - complicates all care DVT prophylaxis. Prognosis: Poor given patient's multiple co-morbidities. Condition: Critical Rest of plan per hospitalist and other consultants. A total of 35 minutes of critical care time was spent reviewing the patient record, examining the patient, making a diagnostic and therapeutic plan, discussing this plan with the medical personnel, following up on diagnostic studies and following the patient for clinical stability excluding any and all procedures. At least 50% of this time was spent in direct, [id number] contact. Thank you Dr. Delarosa for allowing me to participate in this patient's care. Further recommendations will depend on the patient's clinical course. Please do not hesitate to contact me if you have any questions or concerns. This medical document was created using an electronic medical record system with [employer] dictation system. Although these documentations are being carefully reviewed, there may still be some phonetic and typographical changes. The errors are purely typographical, due to imperfection on the software program, and do not reflect any compromise in the patient's medical care. Dietary Evaluation Review Comments: 1. Refer to CDE on DC for weight management 2. Continue current plan of care Expected Outcomes/Goals: To meet >75% estimated needs Fu 3-5 days Plan discussed with: Other (ERROL Cody) Critical Care Time(min): 35 ASHWINI COTTRELL MD Dec 01, 2024 23:35
[2024-12-01] MEDS: AMIODARONE 360mg/200mL PREMIX 200 ML IV SCH (23:39)
--- NOTE | 2024-12-01 23:55 | DVHPN2 ---
Progress Note - Dictate Date Seen: Dec 01, 2024 Medical Necessity Reason Pt with a Central, PICC or Fol: Yes The following are medically ne: Dean Catheter Reason for dean catheter: Bladder Retention/Obstruc, Strict I&O Subjective Patient was seen and evaluated in follow-up in the ICU. Overnight, the patient had ectopy in the 130's on the clinical research monitor. Patient complains of shortness of breath. Patient remains on BI-PAP at 70% FiO2. Per CM, patient's is now open to the patient being transferred to [facility] if [facility] is unable to accept patient. NA 134, K 3, CO2 35, BUN 53, GLUC 650, CA 8.1. vital signs Vital Sign Date Time Temp Pulse Resp B/P (MAP) Pulse Ox O2 Delivery O2 Flow Rate FiO2 12/01/24 10:30 128 16 102/71 (81) 97 12/01/24 10:00 Bi-Pap+ 70 70 12/01/24 08:00 70 12/01/24 08:00 98.7 98.7 Total Intake and Output 11/30/24 11/30/24 12/01/24 15:00 23:00 07:00 Intake Total 228 ml 143.0 ml 576 ml Output Total 1400 ml 2325 ml Balance 228 ml -1257.0 ml -1749 ml medications Current Medications Medications Dose Ordered Sig/Nadia Route Start Time Stop Time Status Last Admin Dose Admin Vancomycin HCl 250 ml @ 200 mls/hr Q12H IV 10/08/24 14:00 UNV Diphenhydramine HCl 50 mg QHSP PRN IV 11/03/24 16:30 11/25/24 23:08 50 MG Enteral Nutritional Formula 240 ml TIDWM PO 11/11/24 18:00 11/28/24 18:00 240 ML Amiodarone HCl 200 mg Q12HR PO 11/13/24 22:00 11/28/24 21:31 200 MG Sodium Chloride 10 ml QSHIFT@10,22 IV 11/13/24 22:00 12/01/24 10:17 10 ML Acetaminophen 650 mg Q4HP PRN PO 11/16/24 11:00 11/25/24 23:08 650 MG Spironolactone 12.5 mg DAILY PO 11/17/24 10:00 11/28/24 11:58 12.5 MG Levalbuterol HCl 1.25 mg Q6HR NEB 11/24/24 18:00 12/01/24 06:54 1.25 MG Fluconazole 100 ml @ 100 mls/hr DAILY IV 11/29/24 10:00 12/02/24 09:59 12/01/24 10:17 100 MLS/HR Metolazone 10 mg DAILY PO 11/30/24 10:00 Amino Acids 0 ml @ 0 mls/hr PER PHARMACY IV 11/30/24 13:45 Diagnostic Test (Pha) 1 strip Q6HR 12/01/24 00:00 12/01/24 05:48 1 STRIP Insulin Human Regular FOLLOW SLIDING SCALE Q6HR SC 12/01/24 00:00 12/01/24 05:54 4 UNITS Dextrose 50 ml UD IV 12/01/24 00:00 Amino Acids/ Electrolytes/ Dextrose 1,000 ml @ 41 mls/hr DAILY@2200 IV 11/30/24 22:00 11/30/24 21:55 41 MLS/HR Norepinephrine Bitartrate 32 mg/ Sodium Chloride 250 ml @ 0.938 mls/ hr Q24H IV 11/30/24 17:15 Bumetanide 25 mg/ Miscellaneous 100 ml @ 6 mls/hr [id number] IV 11/30/24 19:30 12/01/24 01:48 6 MLS/HR objective GENERAL: Alert and oriented x 3. No acute distress. Morbidly obese. EYES: PERRL, EOMI. Anicteric. HENT: Moist mucous membranes. LUNGS: Diminished breath sounds. CARDIOVASCULAR: Irregular rate and rhythm. ABDOMEN: Soft, nontender and nondistended. EXTREMITIES: +3 pitting edema. NEUROLOGIC: No focal neurological deficits. SKIN: Warm, dry. laboratory and microbiology Laboratory Tests 12/01/24 08:35 11/30/24 03:27 Test 12/01/24 08:35 Range/Units Serum Glucose 650 #*H 74-106 mg/dL Problem List Atrial fibrillation with rapid ventricular response, newly diagnosed. Left pleural effusion. Sepsis. Hyperkalemia. Acute kidney injury. Transaminitis. Prediabetes. History of alcoholism. Morbidly obese. Severe systolic HF EF 15%, large pleural effusions. Pericardial effusion. Assessment/Plan Continued all current supportive medical care. IVFs. Diuretics with Bumex. Nebulized breathing treatments. Additional plan as per the hospital course. Critical care time of 45 minutes provided to include time spent evaluation of patient at bedside, when appropriate patient/family education for diagnosis, treatment plan, review of pertinent medical information and discussion of care with specialty providers and PCP. Dietary Evaluation Review Comments: 1. Refer to CDE on DC for weight management 2. Continue current plan of care Expected Outcomes/Goals: To meet >75% estimated needs Fu 3-5 days Plan discussed with: Patient XIOMY JERONIMO MD Dec 01, 2024 12:02
[2024-12-02] VITALS (58 sets, daily range): BP systolic 91–121; BP diastolic 60–84; PULSE 111–133; RESP 14–38; TEMP 99.1–101.7; O2SAT 93–98
[2024-12-02 04:20] LABS: Albumin 3.8 g/dL (3.2-4.8); Anion Gap 11 (5-15); BUN/Creatinine Ratio 44.5 (10.0-20.0); Bilirubin, Total 1.1 mg/dL (0.2-1.0); Calcium 8.9 mg/dL (8.7-10.4); Chloride 100 mmol/L (98-107); Magnesium 1.8 mg/dL (1.6-2.6); Total Protein 6.1 g/dL (5.7-8.2); Triglycerides 98 mg/dL (< 150)
[2024-12-02 04:57] LABS: Alanine Aminotransferase 43 U/L (7-40); Alkaline Phosphatase 157 U/L (46-116); Blood Urea Nitrogen 49 mg/dL (9-23); Carbon Dioxide 40 mmol/L (20-31); Glucose 170 mg/dL (74-106); Potassium 2.5 mmol/L (3.5-5.1); Sodium 151 mmol/L (136-145)
[2024-12-02] MEDS: POTASSIUM CHL 20MEQ/100ML 100 ML IV ONE (06:12)
[2024-12-02] MEDS: POTASSIUM CHL 20MEQ/100ML 100 ML IV SCH (06:12)
[2024-12-02] MEDS: SPIRONOLACTONE 25 MG TAB PO SCH (10:37)
--- NOTE | 2024-12-02 10:38 | DVHPN2 ---
Progress Note - Dictate Date Seen: Dec 02, 2024 Medical Necessity Reason Pt with a Central, PICC or Fol: Yes The following are medically ne: Dean Catheter Reason for dean catheter: Bladder Retention/Obstruc, Strict I&O Subjective Patient transferred to , currently on Ventimask and responsive. Patient's daughter at bedside. vital signs Vital Sign Date Time Temp Pulse Resp B/P (MAP) Pulse Ox O2 Delivery O2 Flow Rate FiO2 12/02/24 10:08 98 Non-Rebreather 15.0 12/02/24 10:08 55 55 12/02/24 08:30 131 27 121/82 (95) 12/02/24 08:00 100.1 100.1 Total Intake and Output 12/01/24 12/01/24 12/02/24 15:00 23:00 07:00 Intake Total 781 ml 675.98 ml 509.28 ml Output Total 2450 ml 2850 ml Balance 781 ml -1774.02 ml -2340.72 ml medications Current Medications Medications Dose Ordered Sig/Nadia Route Start Time Stop Time Status Last Admin Dose Admin Vancomycin HCl 250 ml @ 200 mls/hr Q12H IV 10/08/24 14:00 UNV Diphenhydramine HCl 50 mg QHSP PRN IV 11/03/24 16:30 11/25/24 23:08 50 MG Enteral Nutritional Formula 240 ml TIDWM PO 11/11/24 18:00 11/28/24 18:00 240 ML Sodium Chloride 10 ml QSHIFT@10,22 IV 11/13/24 22:00 12/01/24 22:18 10 ML Acetaminophen 650 mg Q4HP PRN PO 11/16/24 11:00 11/25/24 23:08 650 MG Levalbuterol HCl 1.25 mg Q6HR NEB 11/24/24 18:00 12/02/24 06:38 1.25 MG Metolazone 10 mg DAILY PO 11/30/24 10:00 Amino Acids 0 ml @ 0 mls/hr PER PHARMACY IV 11/30/24 13:45 Diagnostic Test (Pha) 1 strip Q6HR 12/01/24 00:00 12/02/24 06:13 1 STRIP Insulin Human Regular FOLLOW SLIDING SCALE Q6HR SC 12/01/24 00:00 12/02/24 06:30 4 UNITS Dextrose 50 ml UD IV 12/01/24 00:00 Amino Acids/ Electrolytes/ Dextrose 1,000 ml @ 41 mls/hr DAILY@2200 IV 11/30/24 22:00 12/01/24 22:18 41 MLS/HR Norepinephrine Bitartrate 32 mg/ Sodium Chloride 250 ml @ 0.938 mls/ hr Q24H IV 11/30/24 17:15 Bumetanide 25 mg/ Miscellaneous 100 ml @ 6 mls/hr [id number] IV 11/30/24 19:30 12/01/24 16:50 6 MLS/HR Potassium Chloride 100 ml @ 50 mls/hr Q2H IV 12/02/24 06:00 12/02/24 11:59 12/02/24 09:48 50 MLS/HR Spironolactone 25 mg DAILY PO 12/02/24 09:15 objective Gen: nad heent: nc/at, mmm lungs: Diminished breath sounds cvs: No rub abd: soft, bowel sounds audible ext: + edema laboratory and microbiology Laboratory Tests 12/02/24 03:00 11/30/24 03:27 Test 12/02/24 03:00 Range/Units Serum Glucose 170 #H 74-106 mg/dL Assessment/Plan Acute kidney injury due to hypotension ckd cr 1.1 on admission severe systolic HF EF 15%, large pleural effusions s/p thoracentesis pericardial effusion afib RVR metabolic alkalosis - up titration of spironolactone to 25 mg once daily - noted ongoing aggressive potassium repletion - repeat basic chemistry panel at 6:00 p.m.. Dietary Evaluation Review Comments: 1. Refer to CDE on DC for weight management 2. Continue current plan of care Expected Outcomes/Goals: To meet >75% estimated needs Fu 3-5 days Plan discussed with: Patient, Daughter LEELA GERONIMO MD Dec 02, 2024 10:38
[2024-12-02 15:20] LABS: Base Excess 15.3 mmol/L (-2.0-3.0)
[2024-12-02 15:54] LABS: Chloride 100 mmol/L (98-107)
[2024-12-02 16:00] LABS: BUN/Creatinine Ratio 45.3 (10.0-20.0)
[2024-12-02 16:01] LABS: Anion Gap 10.99999 (5-15); Blood Urea Nitrogen 48 mg/dL (9-23); Calcium 8.6 mg/dL (8.7-10.4); Glucose 188 mg/dL (74-106); Potassium 3.2 mmol/L (3.5-5.1); Sodium 151 mmol/L (136-145)
[2024-12-02 16:04] LABS: Carbon Dioxide > 40 mmol/L (20-31)
--- NOTE | 2024-12-02 17:04 | DVHPN2 ---
Progress Note Date Seen: Dec 02, 2024 Medical Necessity Reason Pt with a Central, PICC or Fol: Yes The following are medically ne: Dean Catheter Reason for dean catheter: Bladder Retention/Obstruc, Strict I&O Subjective Patient reports: Other Changes from previous H/P or p: No Changes Objective vital signs Vital Sign Date Time Temp Pulse Resp B/P (MAP) Pulse Ox O2 Delivery O2 Flow Rate FiO2 12/02/24 16:12 100.7 12/02/24 16:00 17 96 Oxymizer 10 N/A 12/02/24 16:00 126 12/02/24 16:00 101/71 (81) Total Intake and Output 12/01/24 12/01/24 12/02/24 15:00 23:00 07:00 Intake Total 781 ml 675.98 ml 509.28 ml Output Total 2450 ml 2850 ml Balance 781 ml -1774.02 ml -2340.72 ml medications Current Medications Medications Dose Ordered Sig/Nadia Route Start Time Stop Time Status Last Admin Dose Admin Vancomycin HCl 250 ml @ 200 mls/hr Q12H IV 10/08/24 14:00 UNV Diphenhydramine HCl 50 mg QHSP PRN IV 11/03/24 16:30 11/25/24 23:08 50 MG Enteral Nutritional Formula 240 ml TIDWM PO 11/11/24 18:00 11/28/24 18:00 240 ML Sodium Chloride 10 ml QSHIFT@10,22 IV 11/13/24 22:00 12/02/24 10:37 10 ML Acetaminophen 650 mg Q4HP PRN PO 11/16/24 11:00 12/02/24 15:02 650 MG Levalbuterol HCl 1.25 mg Q6HR NEB 11/24/24 18:00 12/02/24 11:26 1.25 MG Metolazone 10 mg DAILY PO 11/30/24 10:00 Amino Acids 0 ml @ 0 mls/hr PER PHARMACY IV 11/30/24 13:45 Diagnostic Test (Pha) 1 strip Q6HR 12/01/24 00:00 12/02/24 06:13 1 STRIP Insulin Human Regular FOLLOW SLIDING SCALE Q6HR SC 12/01/24 00:00 12/02/24 12:08 4 UNITS Dextrose 50 ml UD IV 12/01/24 00:00 Amino Acids/ Electrolytes/ Dextrose 1,000 ml @ 41 mls/hr DAILY@2200 IV 11/30/24 22:00 12/01/24 22:18 41 MLS/HR Bumetanide 25 mg/ Miscellaneous 100 ml @ 6 mls/hr [id number] IV 11/30/24 19:30 12/02/24 10:36 6 MLS/HR Spironolactone 50 mg DAILY PO 12/03/24 10:00 Examination Generally 64 years old male, resting in bed. On hfnc No apparent distress HEENT-atraumatic, normocephalic Heart-irregularly irregular Lungs bilateral mild crackles Abdomen soft nontender nondistended Musculoskeletal-bilateral pedal edema Neuro-AO x3, no focal deficits laboratory and microbiology Laboratory Tests 12/02/24 15:25 11/30/24 03:27 Test 12/02/24 15:25 Range/Units Serum Glucose 188 H 74-106 mg/dL Microbiology Date/Time Source Procedure Growth Status 11/29/24 06:30 Nose MRSA Screen - Final Complete 11/23/24 13:53 Urine - Dean Port Urine Culture - Final Presumptive Heaven albicans Complete 10/23/24 11:25 Pleural Fluid Gram Stain - Final Complete 10/23/24 11:25 Pleural Fluid Aerobic Culture - Final Complete 10/05/24 19:19 Blood Blood Culture - Final NO GROWTH AFTER 5 DAYS OF INCUBATION. Complete Problem List/Assessment/Plan Problem List/Assessment/Plan Acute CHF exacerbation with systolic dysfunction Heart failure with reduced ejection fraction 15% Pericardial effusion not in tamponade Recurrent pleural effusion s/p throacentesis AFib with RVR Acute kidney injury 2/2 VMN now CKD 3b History of alcoholism Morbid obesity class I OHS/JEN with chronic CO2 retention Hypotension on midodrine Pericardial effusion Persistent hypokalemia dc diamox switch to bumex aim for -500 daily now on Bumex drip, increasing doses failed conversion to po, will reattempt on a later date amio p.o. for rate control potassium replacement scheduled, Hold midodrine DC dobutamine ggt lifevest bedside c/w Eliquis and asa pt protonix restart abx coverage with cefepime, no alergies noted wound consult fluconazole IV amiodarone due to on HFNC Discussed with [facility] possible transfer. waiting to confirm to see if card can see pt tomorrow diet mech soft dvt ppx on eliquis full code Plan discussed with: Patient My Orders My Orders Orders - IRVIN KLEIN MD Procedure Category Date Status Time Amiodarone PHA 12/01/24 In Process 360mg/200ml Premix 23:30 * Wire Rigger CONS 12/01/24 Transmitted Consult Imaging Transfer ORDERS 12/01/24 Transmitted Request 18:01 Cleanse Wound With RAJAT 12/02/24 In Process Mild Soap A 14:43 Abg W/ Co-Ox RT 12/02/24 Logged 14:54 Spironolactone PHA 12/03/24 In Process (Aldactone) 10:00 Chest Xray 1 View XY 12/03/24 Logged 05:00 Chest Xray 1 View XY 12/04/24 Logged 05:00 Chest Xray 1 View XY 12/05/24 Logged 05:00 Chest Xray 1 View XY 12/06/24 Logged 05:00 Chest Xray 1 View XY 12/07/24 Logged 05:00 Dietary Evaluation Review Comments: 1. Refer to CDE on DC for weight management 2. Continue current plan of care Expected Outcomes/Goals: To meet >75% estimated needs Fu 3-5 days Date of Service: Dec 02, 2024 Billing Provider: IRVIN KLEIN MD Common Visit Codes: [id number] CARE 30-74 MIN IRVIN KLEIN MD Dec 02, 2024 17:04
--- NOTE | 2024-12-02 20:28 | DVHDS2 ---
Discharge Summary Date of Admission Oct 05, 2024 at 22:16 Date of Discharge: Nov 30, 2024 Admitting Diagnosis Acute CHF exacerbation with systolic dysfunction Heart failure with reduced ejection fraction 15% Pericardial effusion not in tamponade Recurrent pleural effusion s/p throacentesis AFib with RVR , currently rate controlled Acute kidney injury 2/2 VMN now CKD 3b History of alcoholism Morbid obesity class I OHS/JEN with chronic CO2 retention Hypotension on midodrine Pericardial effusion Persistent hypokalemia Labs/Diagnostic Data: Laboratory Results Test 12/02/24 15:25 12/02/24 15:12 12/02/24 11:05 12/02/24 03:00 Sodium Level 151 mmol/L (136-145) Potassium Level 3.2 mmol/L (3.5-5.1) Chloride Level 100 mmol/L (98-107) Carbon Dioxide Level > 40 mmol/L (20-31) Anion Gap 10.74299 (5-15) Blood Urea Nitrogen 48 mg/dL (9-23) Creatinine 1.06 mg/dL (0.700-1.30) Glomerular Filtration Rate Calc 78 mL/min (>90) BUN/Creatinine Ratio 45.3 (10.0-20.0) Serum Glucose 188 mg/dL (74-106) Calcium Level 8.6 mg/dL (8.7-10.4) Blood Gas Specimen Type Arterial Blood Gas Sample Site Right radial Blood Gas Patient Temperature 37.0 Arterial Blood Date Drawn [id number] Arterial Blood pH 7.543 (7.350-7.450) Arterial Blood Partial Pressure CO2 47.7 mmHg (35.0-48.0) Arterial Blood Partial Pressure O2 101.7 mmHg (83.0-108.0) Arterial Blood HCO3 40.1 mmol/L (21.0-28.0) Arterial Blood Oxygen Saturation 98.1 % (94.0-98.0) Arterial Blood Base Excess 15.3 mmol/L (-2.0-3.0) Arterial Blood Oxyhemoglobin 96.4 % (94.0-98.0) Arterial Blood Carboxyhemoglobin 1.2 % (0.5-1.5) Arterial Blood Methemoglobin 0.5 % (0.0-1.5) Ramakrishna Test Yes Blood Gas Total Hemoglobin 15.80 g/dL (13.5-17.5) Blood Gas Liter Flow 15.00 Blood Gas Modality Mask - nrb FiO2 % 100.0 POC Glucose 171 mg/dl (70-106) Phosphorus Level 3.1 mg/dL (2.4-5.1) Magnesium Level 1.8 mg/dL (1.6-2.6) Total Bilirubin 1.1 mg/dL (0.2-1.0) Aspartate Amino Transferase (AST) 45 U/L (13-40) Alanine Aminotransferase (ALT) 43 U/L (7-40) Alkaline Phosphatase 157 U/L (46-116) Total Protein 6.1 g/dL (5.7-8.2) Albumin 3.8 g/dL (3.2-4.8) Triglycerides Level 98 mg/dL (< 150) Test 11/30/24 07:12 11/30/24 03:27 11/29/24 09:30 11/27/24 20:00 Blood Gas Set Respiration Rate 14.0 Blood Gas EPAP 6 Blood Gas IPAP 12 White Blood Count 14.9 10^3/uL (4.4-10.8) Red Blood Count 4.88 10^6/uL (4.5-5.90) Hemoglobin 15.4 g/dL (13.5-17.5) Hematocrit 44.9 % (41.0-53.0) Mean Corpuscular Volume 92.0 fL (80.0-100.0) Mean Corpuscular Hemoglobin 31.6 pg (28.0-32.0) Mean Corpuscular Hemoglobin Concent 34.3 g/dL (32.0-36.0) Red Cell Distribution Width 17.8 % (11.8-14.3) Platelet Count 288 10^3/uL (140-450) Mean Platelet Volume 7.8 fL (6.9-10.8) Neutrophils (%) (Auto) % (37.0-80.0) Lymphocytes (%) (Auto) % (10.0-50.0) Monocytes (%) (Auto) % (0.0-12.0) Basophils (%) (Auto) % (0.0-2.0) Neutrophils # (Auto) 10 ^3/uL (1.6-8.6) Lymphocytes # (Auto) 10 ^3/uL (0.4-5.4) Monocytes # (Auto) 10 ^3/uL (0-1.3) Differential Total Cells Counted 100.0 (100) Neutrophils % (Manual) 90 (37.0-80.0) Band Neutrophils % (Manual) 2 Lymphocytes % (Manual) 5 (10.0-50.0) Monocytes % (Manual) 2 (0-12) Eosinophils % (Manual) 0 (0-7) Basophils % (Manual) 0 (0.0-2.0) Metamyelocytes % (manual) 0 Myelocytes % (Manual) 0 Promyelocytes % (Manual) 0 Blast Cells % (Manual) 0 Reactive Lymphocytes 1 Platelet Estimate Adequate Large Platelets Few Stomatocytes Moderate Eosinophils (%) (Auto) 0.1 % (0.0-7.0) Eosinophils # (Auto) 0 10 ^3/uL (0-0.8) Basophils # (Auto) 0.2 10 ^3/uL (0-0.2) Nucleated Red Blood Cells 0.1 % Urine Opiates Screen Neg (NEGATIVE) Urine Fentanyl Screen Neg (NEGATIVE) Urine Barbiturates Screen Neg (NEGATIVE) Urine Phencyclidine Screen Neg (NEGATIVE) Urine Amphetamines Screen Neg (NEGATIVE) Urine Benzodiazepines Screen Neg (NEGATIVE) Urine Cocaine Screen Neg (NEGATIVE) Urine Cannabinoids Screen Neg (NEGATIVE) Test 11/23/24 15:00 11/16/24 11:52 11/15/24 08:49 11/14/24 17:30 Urine Color Yellow (Yellow) Urine Clarity Clear (Clear) Urine pH 5.0 (5.0-9.0) Urine Specific [place] 1.012 (1.001-1.035) Urine Protein Negative (Negative) Urine Ketones Negative (Negative) Urine Blood 1+ /uL (Negative) Urine Nitrite Negative (Negative) Urine Bilirubin Negative (Negative) Urine Urobilinogen Normal mg/dL (Negative) Urine Leukocyte Esterase Trace /uL (Negative) Urine RBC 3 /hpf (0 - 3) Urine Microscopic WBC 3 /HPF (0-3) Urine Squamous Epithelial Cells None seen /hpf (<5) Urine Bacteria None seen /hpf (None Seen) Urine Hyaline Casts Few /lpf (0 - 2) Urine Mucus Few (None Seen) Urine Yeast (Budding) Occasional /hpf (None Urine Glucose Normal mg/dL (Normal) Venous Blood pH 7.473 (7.320-7.430) Venous Blood pCO2 at Patient Temp 38.6 mmHg (38.0-54.0) Venous Blood pO2 at Patient Temp < 36.5 mmHg (23.0-48.0) Venous Blood HCO3 27.7 mmol/L (22.0-29.0) Venous Blood Base Excess 3.9 mmol/L (-2.0-3.0) Blood Gas Comments Urine Osmolality 340 mOsm/kg Test 11/13/24 11:26 11/11/24 16:33 11/11/24 12:00 11/10/24 00:47 Prothrombin Time 13.5 sec (9.3-11.8) Prothrombin Time INR 1.31 (0.9-1.15) Activated Partial Thromboplast Time 30.5 SEC (24.5-34.5) Venous Bld O2 Saturation (Measured) 56.1 % (60.0-85.0) Venous Blood Total Hemoglobin 17.3 g/dL (13.5-17.5) Venous Blood Oxyhemoglobin 55.4 % (0.0-79.0) Venous Blood Carboxyhemoglobin 0.9 % (0.5-1.5) Venous Blood Methemoglobin 0.3 % (0.0-1.5) Blood Gas Critical Value Read Back Yes Blood Gas Notified Whom Dr. walden Blood Gas Notified Time [id number] Blood Gas Notified By Darrian villegas rrt B-Type Natriuretic Peptide 204.00 pg/mL (0-100) Test 11/03/24 22:25 10/31/24 10:00 10/23/24 11:25 10/16/24 06:12 Troponin I High Sensitivity 11 ng/L (</=54) Urine Creatinine 49.93 mg/dL (30.0-125.0) Urine Protein/Creatinine Ratio 0.60 Urine Sodium 23 mmol/L (40-220) Urine Potassium 91 mmol/L (12-62) Urine Total Protein 29.8 mg/dL (1-14) Body Fluid Source Pleural fluid Body Fluid pH 8.0 Body Fluid WBC (Manual) 817 CUMM (0-200) Body Fluid RBC (Manual) 99769 CUMM (0-2000) Body Fluid Mononuclear Cells 90 % Body Fluid Polymorphonuclear Cells 10 % (0-25) Body Fluid Glucose 151 mg/dL (.) Body Fluid Total Protein 2.5 g/dL (.) Body Fluid Lactate Dehydrogenase 532 IU/L (.) Digoxin Level 0.97 ng/mL (0.8-2) Test 10/09/24 22:20 10/08/24 05:25 10/06/24 10:05 10/05/24 21:09 Vancomycin Level Trough 16.7 ug/mL (5-10) Random Vancomycin Level 11.3 ug/mL (5-10) Thyroid Stimulating Hormone (TSH) 2.54 uIU/mL (0.55-4.78) Lactic Acid Level 2.9 mmol/L (0.4-2.0) Test 10/05/24 18:40 10/05/24 18:14 Influenza Type A Antigen Negative (Negative) Influenza Type B Antigen Negative (Negative) SARS-CoV-2 Antigen (Rapid) Negative (NEGATIVE) Hemoglobin A1c 6.1 % A1C (<5.7) Other Laboratory Tests 12/02/24 15:25 11/30/24 03:27 Brief Hx & Hospital Course: Mr. courtney, 64 M with HFrEF 15%, afib, recurrent HFrEF ADHF, morbid obesity with prolonged ICU and medsurg admission. Patient has had a prolonged stay for HFrEF 15%, Patient did not have any angiograms/angiography done , he has been try to diurese with Lasix, Diamox, metolazone,. For multiple times we have tried to wean patient off of IV drips inpatient goes into volume overload despite trying IV Lasix. Further studies have shown patient is in cardiogenic shock, EF 15%. Patient has had pleural effusions which are transudative in consistent with volume overload,/CHF. Patient had a acute episode of dysphagia an esophagram done is normal, This is likely due to gut wall edema from CHF. Patient has been requiring continuous BiPAP and recently changed from Lasix to Bumex which is improving urine output. Patient remains off dobutamine. Pt is weaned to HFNC. on IV amiodarone for rate control but pt likely have tachycardioa due to low EF and low cardiac output and compensating with HR. Currently plan is to transfer patient to higher level of care for assessment of heart transplant. Condition at Discharge: Higher Level of Care Final Diagnosis/Problems List ACUTE CHF EXACERBATION WITH SYSTOLIC DYSFUNCTION PERICADIAL EFFUSION Discharge Disposition: Acute Care Facility ([facility]) Discharge Instruct/Medications Diet: See Comment (cardiac diet) Diet comment: PPN Activity: No Restrictions, As Tolerated 55 Discharge Statement: "Patient was advised to return to the ER or call 911 if any headaches, dizziness, shortness of breath, chest pain, abdominal pain, bleeding, fevers, or worsening of medical condition. Patient was counseled about treatment plan, medications, possible side effects, patientverbalized understanding. All questions were answered to the best of my ability. This discharge took greater then 30 minutes in planning, reviewing documentation, counseling the patient, and discussing with other team members." ASSESSMENT ASSESSMENT Assessment ACUTE CHF EXACERBATION WITH SYSTOLIC DYSFUNCTION PERICADIAL EFFUSION Date of Service: Dec 02, 2024 Billing Provider: IRVIN KLEIN MD Common Visit Codes: [id number] CARE 30-74 MIN IRVIN KLEIN MD Dec 02, 2024 20:28
--- NOTE | 2024-12-02 23:34 | DVHPN2 ---
Progress Note - Dictate Date Seen: Dec 02, 2024 Medical Necessity Reason Pt with a Central, PICC or Fol: Yes The following are medically ne: Dean Catheter Reason for dean catheter: Bladder Retention/Obstruc, Strict I&O Subjective Patient seen and examined at bedside. On BiPAP Overnight events reviewed. vital signs Vital Sign Date Time Temp Pulse Resp B/P (MAP) Pulse Ox O2 Delivery O2 Flow Rate FiO2 12/02/24 19:07 100.9 129 26 96 12/02/24 18:25 Oxymizer 11 77 77 12/02/24 18:00 95/61 (72) Total Intake and Output 12/01/24 12/01/24 12/02/24 15:00 23:00 07:00 Intake Total 781 ml 675.98 ml 509.28 ml Output Total 2450 ml 2850 ml Balance 781 ml -1774.02 ml -2340.72 ml medications Current Medications Medications Dose Ordered Sig/Nadia Route Start Time Stop Time Status Last Admin Dose Admin Vancomycin HCl 250 ml @ 200 mls/hr Q12H IV 10/08/24 14:00 UNV Diphenhydramine HCl 50 mg QHSP PRN IV 11/03/24 16:30 11/25/24 23:08 50 MG Enteral Nutritional Formula 240 ml TIDWM PO 11/11/24 18:00 11/28/24 18:00 240 ML Sodium Chloride 10 ml QSHIFT@10,22 IV 11/13/24 22:00 12/02/24 10:37 10 ML Acetaminophen 650 mg Q4HP PRN PO 11/16/24 11:00 12/02/24 15:02 650 MG Levalbuterol HCl 1.25 mg Q6HR NEB 11/24/24 18:00 12/02/24 18:25 1.25 MG Metolazone 10 mg DAILY PO 11/30/24 10:00 Amino Acids 0 ml @ 0 mls/hr PER PHARMACY IV 11/30/24 13:45 Diagnostic Test (Pha) 1 strip Q6HR 12/01/24 00:00 12/02/24 06:13 1 STRIP Insulin Human Regular FOLLOW SLIDING SCALE Q6HR SC 12/01/24 00:00 12/02/24 12:08 4 UNITS Dextrose 50 ml UD IV 12/01/24 00:00 Amino Acids/ Electrolytes/ Dextrose 1,000 ml @ 41 mls/hr DAILY@2200 IV 11/30/24 22:00 12/01/24 22:18 41 MLS/HR Bumetanide 25 mg/ Miscellaneous 100 ml @ 6 mls/hr [id number] IV 11/30/24 19:30 12/02/24 10:36 6 MLS/HR Spironolactone 50 mg DAILY PO 12/03/24 10:00 objective Gen.: Patient lying in bed in no apparent distress. On BiPAP Head: Normocephalic, atraumatic. Eyes: EOMI/PERRLA. Ears: Normal hearing. Normal anatomy. Neck/trachea: Trachea midline, supple. Nose: Normal external anatomy. Mouth: Moist mucous membranes. Chest: Decreased air entry bilaterally. No wheezing or rhonchi. Cardiovascular: Positive S1, positive S2. Regular rate and rhythm. Abdomen: Positive bowel sounds in all 4 quadrants. Soft, non-tender, non- distended. : Deferred. Rectal: Deferred. Skin: Warm, dry. Intact. Extremities: 2+ radial pulses bilaterally. No lower extremity edema. Neuro: Awake, alert, oriented x3. No gross motor or sensory deficits. Cranial nerves II through XII intact. Gait not assessed. laboratory and microbiology Laboratory Tests 12/02/24 15:25 11/30/24 03:27 Test 12/02/24 15:25 Range/Units Serum Glucose 188 H 74-106 mg/dL Assessment/Plan Impression: Acute hypoxic respiratory failure On NIPPV Pleural effusions Atelectasis Hyperglycemia Severe systolic CHF with EF 15% Acute kidney injury. Obesity Plan: On BiPAP with IPAP 12, EPAP 6, FiO2 of 55% Taper FIO2 as tolerated Titrate to keep O2 sats above 92%. Chest x-ray reveals pulmonary edema, bilateral pleural effusions and atelectasis. Continue antibiotics Continue antifungal Incentive spirometry Follow up Nephrology recommendations Diurese with Bumex drip. Monitor renal function. Monitor electrolytes. Supplement as necessary. Potassium supplementation Monitor ins and outs. Accu-Cheks, ISS. Plan for HLOC for heart transplant Follow up Cardiology recommendations Diet and lifestyle modifications for weight reduction Obesity - complicates all care DVT prophylaxis. Prognosis: Poor given patient's multiple co-morbidities. Condition: Critical Rest of plan per hospitalist and other consultants. A total of 35 minutes of critical care time was spent reviewing the patient record, examining the patient, making a diagnostic and therapeutic plan, discussing this plan with the medical personnel, following up on diagnostic studies and following the patient for clinical stability excluding any and all procedures. At least 50% of this time was spent in direct, [id number] contact. Thank you Dr. Delarosa for allowing me to participate in this patient's care. Further recommendations will depend on the patient's clinical course. Please do not hesitate to contact me if you have any questions or concerns. This medical document was created using an electronic medical record system with AppSheet dictation system. Although these documentations are being carefully reviewed, there may still be some phonetic and typographical changes. The errors are purely typographical, due to imperfection on the software program, and do not reflect any compromise in the patient's medical care. Dietary Evaluation Review Comments: 1. Refer to CDE on DC for weight management 2. Continue current plan of care Expected Outcomes/Goals: To meet >75% estimated needs Fu 3-5 days Plan discussed with: Other (ERROL Begum) Critical Care Time(min): 35 ASHWINI COTTRELL MD Dec 02, 2024 23:34
--- NOTE | 2024-12-02 23:57 | DVHPN2 ---
Progress Note - Dictate Date Seen: Dec 02, 2024 Medical Necessity Reason Pt with a Central, PICC or Fol: Yes The following are medically ne: Dean Catheter Reason for dean catheter: Bladder Retention/Obstruc, Strict I&O Subjective Patient was seen and evaluated in follow up. No overnight events. Patient was downgraded to HUMBLE. Patient is on 12 L NRB. Patient's daughter is present at bedside. CM is working on transfer process for [facility]. NA 151, K 2.5, CO2 40, BUN 49, AST 45, ALT 43. vital signs Vital Sign Date Time Temp Pulse Resp B/P (MAP) Pulse Ox O2 Delivery O2 Flow Rate FiO2 12/02/24 12:00 126 12/02/24 12:00 26 98 Non-Rebreather 12 N/A 12/02/24 11:30 107/80 (89) 12/02/24 08:00 100.1 100.1 Total Intake and Output 12/01/24 12/01/24 12/02/24 15:00 23:00 07:00 Intake Total 781 ml 675.98 ml 509.28 ml Output Total 2450 ml 2850 ml Balance 781 ml -1774.02 ml -2340.72 ml medications Current Medications Medications Dose Ordered Sig/Nadia Route Start Time Stop Time Status Last Admin Dose Admin Vancomycin HCl 250 ml @ 200 mls/hr Q12H IV 10/08/24 14:00 UNV Diphenhydramine HCl 50 mg QHSP PRN IV 11/03/24 16:30 11/25/24 23:08 50 MG Enteral Nutritional Formula 240 ml TIDWM PO 11/11/24 18:00 11/28/24 18:00 240 ML Sodium Chloride 10 ml QSHIFT@10,22 IV 11/13/24 22:00 12/02/24 10:37 10 ML Acetaminophen 650 mg Q4HP PRN PO 11/16/24 11:00 11/25/24 23:08 650 MG Levalbuterol HCl 1.25 mg Q6HR NEB 11/24/24 18:00 12/02/24 11:26 1.25 MG Metolazone 10 mg DAILY PO 11/30/24 10:00 Amino Acids 0 ml @ 0 mls/hr PER PHARMACY IV 11/30/24 13:45 Diagnostic Test (Pha) 1 strip Q6HR 12/01/24 00:00 12/02/24 06:13 1 STRIP Insulin Human Regular FOLLOW SLIDING SCALE Q6HR SC 12/01/24 00:00 12/02/24 12:08 4 UNITS Dextrose 50 ml UD IV 12/01/24 00:00 Amino Acids/ Electrolytes/ Dextrose 1,000 ml @ 41 mls/hr DAILY@2200 IV 11/30/24 22:00 12/01/24 22:18 41 MLS/HR Bumetanide 25 mg/ Miscellaneous 100 ml @ 6 mls/hr [id number] IV 11/30/24 19:30 12/02/24 10:36 6 MLS/HR Spironolactone 25 mg DAILY PO 12/02/24 09:15 12/02/24 10:38 25 MG objective GENERAL: Alert and oriented x 3. No acute distress. Morbidly obese. EYES: PERRL, EOMI. Anicteric. HENT: Moist mucous membranes. LUNGS: Diminished breath sounds. CARDIOVASCULAR: Irregular rate and rhythm. ABDOMEN: Soft, nontender and nondistended. EXTREMITIES: +3 pitting edema. NEUROLOGIC: No focal neurological deficits. SKIN: Warm, dry. laboratory and microbiology Laboratory Tests 12/02/24 03:00 11/30/24 03:27 Test 12/02/24 03:00 Range/Units Serum Glucose 170 #H 74-106 mg/dL Problem List Atrial fibrillation with rapid ventricular response, newly diagnosed. Left pleural effusion. Sepsis. Hyperkalemia. Acute kidney injury. Transaminitis. Prediabetes. History of alcoholism. Morbidly obese. Severe systolic HF EF 15%, large pleural effusions. Pericardial effusion. Assessment/Plan Continued all current supportive medical care. IVFs. Aldactone. Diuretics with Bumex. Nebulized breathing treatments. Additional plan as per the hospital course. Critical care time of 45 minutes provided to include time spent evaluation of patient at bedside, when appropriate patient/family education for diagnosis, treatment plan, review of pertinent medical information and discussion of care with specialty providers and PCP. Dietary Evaluation Review Comments: 1. Refer to CDE on DC for weight management 2. Continue current plan of care Expected Outcomes/Goals: To meet >75% estimated needs Fu 3-5 days Plan discussed with: Patient XIOMY JERONIMO MD Dec 02, 2024 13:21
[2024-12-03] VITALS (26 sets, daily range): BP systolic 86–115; BP diastolic 59–80; PULSE 109–135; RESP 20–32; TEMP 98.5–99.8; O2SAT 91–98
[2024-12-03] MEDS: AMIODARONE 360mg/200mL PREMIX 200 ML IV ONE (03:32)
--- NOTE | 2024-12-03 05:01 | DVH ---
CHEST RADIOGRAPH Indication: assess sob Technique: 1 view Comparison: XY CHEST PORTABLE on DOS: 11/29/24, XY CHEST PORTABLE on DOS: 11/24/24, XY CHEST PORTABLE o n DOS: 11/23/24, XY CHEST PORTABLE on DOS: 11/15/24, XY CHEST PORTABLE on DOS: 11/13/24 FINDINGS: Lines and Tubes: Unchanged right upper extremity PICC. Lungs: Persistent bilateral mixed pulmonary opacities, similar in appearance accounting for differenc es in technique. Pleura: Xorg-[id number]-right effusions. No pneumothorax. Cardiomediastinal contours: Unchanged. Bones: Unchanged. IMPRESSION: 1. No significant change from the previous day. Bilateral mixed pulmonary opacities, [id number] an-right pleural effusions, and cardiomegaly.
[2024-12-03 07:57] LABS: Alanine Aminotransferase 34 U/L (7-40); Albumin 3.7 g/dL (3.2-4.8); BUN/Creatinine Ratio 46.6 (10.0-20.0); Bilirubin, Total 1.2 mg/dL (0.2-1.0); Calcium 8.9 mg/dL (8.7-10.4); Chloride 99 mmol/L (98-107); Magnesium 1.7 mg/dL (1.6-2.6); Total Protein 6.2 g/dL (5.7-8.2)
[2024-12-03 07:58] LABS: Alkaline Phosphatase 149 U/L (46-116); Anion Gap 15.99999 (5-15); Blood Urea Nitrogen 48 mg/dL (9-23); Glucose 111 mg/dL (74-106); Sodium 155 mmol/L (136-145)
[2024-12-03 08:01] LABS: Carbon Dioxide > 40 mmol/L (20-31); Potassium 2.1 mmol/L (3.5-5.1)
[2024-12-03] MEDS: POTASSIUM CHL 20MEQ/100ML 100 ML IV SCH (08:53)
[2024-12-03] MEDS: POTASSIUM EFFERVESENT TAB 25 MEQ PO ONE (08:53)
[2024-12-03] MEDS: SPIRONOLACTONE 25 MG TAB PO SCH (10:00)
[2024-12-03] MEDS ORDERED: BUMETANIDE INJECTION 25 MG in GIVE UN-DILUTED 0 ML IV SCH (11:30)
[2024-12-03] MEDS ORDERED: acetaZOLAMIDE SODIUM 500 MG VL IV SCH (11:30)
--- NOTE | 2024-12-03 11:59 | DVHPN2 ---
Progress Note Date Seen: Dec 03, 2024 Medical Necessity Reason Pt with a Central, PICC or Fol: Yes The following are medically ne: Dean Catheter Reason for dean catheter: Bladder Retention/Obstruc, Strict I&O Subjective Patient reports: No new complaints Objective vital signs Vital Sign Date Time Temp Pulse Resp B/P (MAP) Pulse Ox O2 Delivery O2 Flow Rate FiO2 12/03/24 10:30 133 25 111/74 (86) 94 12/03/24 10:00 Oxymizer 12 N/A 12/03/24 08:00 98.8 98.8 Total Intake and Output 12/02/24 12/02/24 12/03/24 15:00 23:00 07:00 Intake Total 759.28 ml 509.28 ml 272.30 ml Output Total 1950 ml 2500 ml Balance 759.28 ml -1440.72 ml -2227.70 ml medications Current Medications Medications Dose Ordered Sig/Nadia Route Start Time Stop Time Status Last Admin Dose Admin Vancomycin HCl 250 ml @ 200 mls/hr Q12H IV 10/08/24 14:00 UNV Diphenhydramine HCl 50 mg QHSP PRN IV 11/03/24 16:30 11/25/24 23:08 50 MG Enteral Nutritional Formula 240 ml TIDWM PO 11/11/24 18:00 11/28/24 18:00 240 ML Sodium Chloride 10 ml QSHIFT@10,22 IV 11/13/24 22:00 12/03/24 10:27 10 ML Acetaminophen 650 mg Q4HP PRN PO 11/16/24 11:00 12/02/24 15:02 650 MG Levalbuterol HCl 1.25 mg Q6HR NEB 11/24/24 18:00 12/03/24 07:31 1.25 MG Metolazone 10 mg DAILY PO 11/30/24 10:00 Amino Acids 0 ml @ 0 mls/hr PER PHARMACY IV 11/30/24 13:45 Diagnostic Test (Pha) 1 strip Q6HR 12/01/24 00:00 12/03/24 06:09 1 STRIP Insulin Human Regular FOLLOW SLIDING SCALE Q6HR SC 12/01/24 00:00 12/02/24 23:44 8 UNITS Dextrose 50 ml UD IV 12/01/24 00:00 Amino Acids/ Electrolytes/ Dextrose 1,000 ml @ 41 mls/hr DAILY@2200 IV 11/30/24 22:00 12/01/24 22:18 41 MLS/HR Spironolactone 50 mg DAILY PO 12/03/24 10:00 Potassium Chloride 100 ml @ 50 mls/hr Q2H IV 12/03/24 08:45 12/03/24 12:44 12/03/24 10:57 50 MLS/HR Bumetanide 25 mg/ Miscellaneous 100 ml @ 2 mls/hr Q24H IV 12/03/24 11:30 UNV Acetazolamide Sodium 500 mg Q12HR IV 12/03/24 11:30 12/04/24 11:29 UNV Examination: GENERAL:Abnormal, LUNGS:Abnormal, CVS:Abnormal, SKIN:Abnormal laboratory and microbiology Laboratory Tests 12/03/24 06:29 11/30/24 03:27 Test 12/03/24 06:29 Range/Units Serum Glucose 111 H 74-106 mg/dL Microbiology Date/Time Source Procedure Growth Status 11/29/24 06:30 Nose MRSA Screen - Final Complete 11/23/24 13:53 Urine - Dean [place] Urine Culture - Final Presumptive [place] albicans Complete 10/23/24 11:25 Pleural Fluid Gram Stain - Final Complete 10/23/24 11:25 Pleural Fluid Aerobic Culture - Final Complete 10/05/24 19:19 Blood Blood Culture - Final NO GROWTH AFTER 5 DAYS OF INCUBATION. Complete Problem List/Assessment/Plan Problem List/Assessment/Plan 64 year old male w/ no previous medical followup admitted to hospital with sob diagnosed w/ new onset CHF EF 15% and transferred to ICU for Afib RVR Acute kidney injury due to hypotension/cardiorenal etiology ckd cr 1.1 on admission severe systolic HF EF 15% AFib with RVR Shock cardiogenic pericardial effusion afib RVR Hyponatremia Hypokalemia metabolic alkalosis reduce diuretic drip rec IV diamox replace potassium today restrict fluids fluid restriction high risk for cardiac arrest HLOC for impala planned for today guarded prognosis Plan discussed with: Patient My Orders My Orders Orders - HUONG SHEPPARD MD Procedure Category Date Status Time Give Un-Diluted PHA 12/03/24 Logged (Gi... W/Bumetanide 11:30 Basic Metabolic Panel LAB 12/04/24 Verified 04:00 Acetazolamide PHA 12/03/24 Logged Injection (Diamox 11:30 Venous Blood Gas RT 12/03/24 Logged 11:22 Dietary Evaluation Review Comments: 1. Refer to CDE on DC for weight management 2. Continue current plan of care Expected Outcomes/Goals: To meet >75% estimated needs Fu 3-5 days Total Time (mins): 45 HUONG SHEPPARD MD Dec 03, 2024 11:59
--- NOTE | 2024-12-03 15:45 | DVHDS2 ---
Discharge Summary Date of Admission Oct 05, 2024 at 22:16 Date of Discharge: Nov 30, 2024 Labs/Diagnostic Data: Laboratory Results Test 12/03/24 06:29 12/03/24 06:12 12/02/24 15:12 12/02/24 03:00 Sodium Level 155 mmol/L (136-145) Potassium Level 2.1 mmol/L (3.5-5.1) Chloride Level 99 mmol/L (98-107) Carbon Dioxide Level > 40 mmol/L (20-31) Anion Gap 15.95096 (5-15) Blood Urea Nitrogen 48 mg/dL (9-23) Creatinine 1.03 mg/dL (0.700-1.30) Glomerular Filtration Rate Calc 81 mL/min (>90) BUN/Creatinine Ratio 46.6 (10.0-20.0) Serum Glucose 111 mg/dL (74-106) Calcium Level 8.9 mg/dL (8.7-10.4) Phosphorus Level 2.7 mg/dL (2.4-5.1) Magnesium Level 1.7 mg/dL (1.6-2.6) Total Bilirubin 1.2 mg/dL (0.2-1.0) Aspartate Amino Transferase (AST) 35 U/L (13-40) Alanine Aminotransferase (ALT) 34 U/L (7-40) Alkaline Phosphatase 149 U/L (46-116) Total Protein 6.2 g/dL (5.7-8.2) Albumin 3.7 g/dL (3.2-4.8) POC Glucose 131 mg/dl (70-106) Blood Gas Specimen Type Arterial Blood Gas Sample Site Right radial Blood Gas Patient Temperature 37.0 Arterial Blood Date Drawn [id number] Arterial Blood pH 7.543 (7.350-7.450) Arterial Blood Partial Pressure CO2 47.7 mmHg (35.0-48.0) Arterial Blood Partial Pressure O2 101.7 mmHg (83.0-108.0) Arterial Blood HCO3 40.1 mmol/L (21.0-28.0) Arterial Blood Oxygen Saturation 98.1 % (94.0-98.0) Arterial Blood Base Excess 15.3 mmol/L (-2.0-3.0) Arterial Blood Oxyhemoglobin 96.4 % (94.0-98.0) Arterial Blood Carboxyhemoglobin 1.2 % (0.5-1.5) Arterial Blood Methemoglobin 0.5 % (0.0-1.5) Ramakrishna Test Yes Blood Gas Total Hemoglobin 15.80 g/dL (13.5-17.5) Blood Gas Liter Flow 15.00 Blood Gas Modality Mask - nrb FiO2 % 100.0 Triglycerides Level 98 mg/dL (< 150) Test 11/30/24 07:12 11/30/24 03:27 11/29/24 09:30 11/27/24 20:00 Blood Gas Set Respiration Rate 14.0 Blood Gas EPAP 6 Blood Gas IPAP 12 White Blood Count 14.9 10^3/uL (4.4-10.8) Red Blood Count 4.88 10^6/uL (4.5-5.90) Hemoglobin 15.4 g/dL (13.5-17.5) Hematocrit 44.9 % (41.0-53.0) Mean Corpuscular Volume 92.0 fL (80.0-100.0) Mean Corpuscular Hemoglobin 31.6 pg (28.0-32.0) Mean Corpuscular Hemoglobin Concent 34.3 g/dL (32.0-36.0) Red Cell Distribution Width 17.8 % (11.8-14.3) Platelet Count 288 10^3/uL (140-450) Mean Platelet Volume 7.8 fL (6.9-10.8) Neutrophils (%) (Auto) % (37.0-80.0) Lymphocytes (%) (Auto) % (10.0-50.0) Monocytes (%) (Auto) % (0.0-12.0) Basophils (%) (Auto) % (0.0-2.0) Neutrophils # (Auto) 10 ^3/uL (1.6-8.6) Lymphocytes # (Auto) 10 ^3/uL (0.4-5.4) Monocytes # (Auto) 10 ^3/uL (0-1.3) Differential Total Cells Counted 100.0 (100) Neutrophils % (Manual) 90 (37.0-80.0) Band Neutrophils % (Manual) 2 Lymphocytes % (Manual) 5 (10.0-50.0) Monocytes % (Manual) 2 (0-12) Eosinophils % (Manual) 0 (0-7) Basophils % (Manual) 0 (0.0-2.0) Metamyelocytes % (manual) 0 Myelocytes % (Manual) 0 Promyelocytes % (Manual) 0 Blast Cells % (Manual) 0 Reactive Lymphocytes 1 Platelet Estimate Adequate Large Platelets Few Stomatocytes Moderate Eosinophils (%) (Auto) 0.1 % (0.0-7.0) Eosinophils # (Auto) 0 10 ^3/uL (0-0.8) Basophils # (Auto) 0.2 10 ^3/uL (0-0.2) Nucleated Red Blood Cells 0.1 % Urine Opiates Screen Neg (NEGATIVE) Urine Fentanyl Screen Neg (NEGATIVE) Urine Barbiturates Screen Neg (NEGATIVE) Urine Phencyclidine Screen Neg (NEGATIVE) Urine Amphetamines Screen Neg (NEGATIVE) Urine Benzodiazepines Screen Neg (NEGATIVE) Urine Cocaine Screen Neg (NEGATIVE) Urine Cannabinoids Screen Neg (NEGATIVE) Test 11/23/24 15:00 11/16/24 11:52 11/15/24 08:49 11/14/24 17:30 Urine Color Yellow (Yellow) Urine Clarity Clear (Clear) Urine pH 5.0 (5.0-9.0) Urine Specific [place] 1.012 (1.001-1.035) Urine Protein Negative (Negative) Urine Ketones Negative (Negative) Urine Blood 1+ /uL (Negative) Urine Nitrite Negative (Negative) Urine Bilirubin Negative (Negative) Urine Urobilinogen Normal mg/dL (Negative) Urine Leukocyte Esterase Trace /uL (Negative) Urine RBC 3 /hpf (0 - 3) Urine Microscopic WBC 3 /HPF (0-3) Urine Squamous Epithelial Cells None seen /hpf (<5) Urine Bacteria None seen /hpf (None Seen) Urine Hyaline Casts Few /lpf (0 - 2) Urine Mucus Few (None Seen) Urine Yeast (Budding) Occasional /hpf (None Urine Glucose Normal mg/dL (Normal) Venous Blood pH 7.473 (7.320-7.430) Venous Blood pCO2 at Patient Temp 38.6 mmHg (38.0-54.0) Venous Blood pO2 at Patient Temp < 36.5 mmHg (23.0-48.0) Venous Blood HCO3 27.7 mmol/L (22.0-29.0) Venous Blood Base Excess 3.9 mmol/L (-2.0-3.0) Blood Gas Comments Urine Osmolality 340 mOsm/kg Test 11/13/24 11:26 11/11/24 16:33 11/11/24 12:00 11/10/24 00:47 Prothrombin Time 13.5 sec (9.3-11.8) Prothrombin Time INR 1.31 (0.9-1.15) Activated Partial Thromboplast Time 30.5 SEC (24.5-34.5) Venous Bld O2 Saturation (Measured) 56.1 % (60.0-85.0) Venous Blood Total Hemoglobin 17.3 g/dL (13.5-17.5) Venous Blood Oxyhemoglobin 55.4 % (0.0-79.0) Venous Blood Carboxyhemoglobin 0.9 % (0.5-1.5) Venous Blood Methemoglobin 0.3 % (0.0-1.5) Blood Gas Critical Value Read Back Yes Blood Gas Notified Whom Dr. walden Blood Gas Notified Time [id number] Blood Gas Notified By Darrian villegas rrt B-Type Natriuretic Peptide 204.00 pg/mL (0-100) Test 11/03/24 22:25 10/31/24 10:00 10/23/24 11:25 10/16/24 06:12 Troponin I High Sensitivity 11 ng/L (</=54) Urine Creatinine 49.93 mg/dL (30.0-125.0) Urine Protein/Creatinine Ratio 0.60 Urine Sodium 23 mmol/L (40-220) Urine Potassium 91 mmol/L (12-62) Urine Total Protein 29.8 mg/dL (1-14) Body Fluid Source Pleural fluid Body Fluid pH 8.0 Body Fluid WBC (Manual) 817 CUMM (0-200) Body Fluid RBC (Manual) 14495 CUMM (0-2000) Body Fluid Mononuclear Cells 90 % Body Fluid Polymorphonuclear Cells 10 % (0-25) Body Fluid Glucose 151 mg/dL (.) Body Fluid Total Protein 2.5 g/dL (.) Body Fluid Lactate Dehydrogenase 532 IU/L (.) Digoxin Level 0.97 ng/mL (0.8-2) Test 10/09/24 22:20 10/08/24 05:25 10/06/24 10:05 10/05/24 21:09 Vancomycin Level Trough 16.7 ug/mL (5-10) Random Vancomycin Level 11.3 ug/mL (5-10) Thyroid Stimulating Hormone (TSH) 2.54 uIU/mL (0.55-4.78) Lactic Acid Level 2.9 mmol/L (0.4-2.0) Test 10/05/24 18:40 10/05/24 18:14 Influenza Type A Antigen Negative (Negative) Influenza Type B Antigen Negative (Negative) SARS-CoV-2 Antigen (Rapid) Negative (NEGATIVE) Hemoglobin A1c 6.1 % A1C (<5.7) Other Laboratory Tests 12/03/24 06:29 11/30/24 03:27 Brief Hx & Hospital Course: Mr. courtney, 64 M with HFrEF 15%, afib, recurrent HFrEF ADHF, morbid obesity with prolonged ICU and medsurg admission. Patient has had a prolonged stay for HFrEF 15%, Patient did not have any angiograms/angiography done , he has been try to diurese with Lasix, Diamox, metolazone. For multiple times we have tried to wean patient off of IV drips inpatient goes into volume overload despite trying IV Lasix. Further studies have shown patient is in cardiogenic shock, EF 15%. Patient has had pleural effusions which are transudative in consistent with volume overload,/CHF. Patient had a acute episode of dysphagia an esophagram done is normal, This is likely due to gut wall edema from CHF. Patient has been requiring continuous BiPAP and recently changed from Lasix to Bumex which is improving urine output. Patient remains off dobutamine. Pt is weaned to HFNC. on IV amiodarone for rate control but pt likely have tachycardioa due to low EF and low cardiac output and compensating with HR. Currently plan is to transfer patient to higher level of care for assessment of heart transplant vs LVAD. patient is accepted by [facility] and will be transp[orted by air. intubation was defered as patient is a high risk. Condition at Discharge: Higher Level of Care Final Diagnosis/Problems List Acute CHF exacerbation with systolic dysfunction Heart failure with reduced ejection fraction 15% Pericardial effusion not in tamponade Recurrent pleural effusion s/p throacentesis AFib with RVR , currently rate controlled Acute kidney injury 2/2 VMN now CKD 3b History of alcoholism Morbid obesity class I OHS/JEN with chronic CO2 retention Hypotension on midodrine Pericardial effusion Persistent hypokalemia Discharge Disposition: Acute Care Facility ([facility]) Discharge Instruct/Medications Diet: See Comment (cardiac diet) Diet comment: PPN Activity: No Restrictions, As Tolerated No Active Prescriptions or Reported Meds Discharge Statement: "Patient was advised to return to the ER or call 911 if any headaches, dizziness, shortness of breath, chest pain, abdominal pain, bleeding, fevers, or worsening of medical condition. Patient was counseled about treatment plan, medications, possible side effects, patientverbalized understanding. All questions were answered to the best of my ability. This discharge took greater then 30 minutes in planning, reviewing documentation, counseling the patient, and discussing with other team members." ASSESSMENT ASSESSMENT Assessment ACUTE CHF EXACERBATION WITH SYSTOLIC DYSFUNCTION PERICADIAL EFFUSION Date of Service: Dec 03, 2024 Billing Provider: IDALMIS DIAZ MD Common Visit Codes: 57558-XIA/OBS DISCH DAY >30min, 70878-[id number] CARE 30-74 MIN IDALMIS DIAZ MD Dec 03, 2024 15:45
--- NOTE | 2024-12-03 22:50 | DVHPN2 ---
Progress Note - Dictate Date Seen: Dec 03, 2024 Medical Necessity Reason Pt with a Central, PICC or Fol: Yes The following are medically ne: Dean Catheter Reason for dean catheter: Bladder Retention/Obstruc, Strict I&O Subjective Patient was seen and evaluated in follow-up. Patient is in A-flutter in the 120's-130's on the quality assurance monitor body. Patient is on Amiodarone drip. NA 155, K 2.1, CO2 > 40, BUN 48. Chest x-ray showed bilateral mixed pulmonary opacities, [id number]-right pleural effusions, and cardiomegaly. Patient is cardiac stable for transfer to [facility] via [facility]. vital signs Vital Sign Date Time Temp Pulse Resp B/P (MAP) Pulse Ox O2 Delivery O2 Flow Rate FiO2 12/03/24 11:00 134 21 115/73 (87) 94 12/03/24 10:00 Oxymizer 12 N/A 12/03/24 08:00 98.8 98.8 Total Intake and Output 12/02/24 12/02/24 12/03/24 15:00 23:00 07:00 Intake Total 759.28 ml 509.28 ml 272.30 ml Output Total 1950 ml 2500 ml Balance 759.28 ml -1440.72 ml -2227.70 ml medications Current Medications Medications Dose Ordered Sig/Nadia Route Start Time Stop Time Status Last Admin Dose Admin Vancomycin HCl 250 ml @ 200 mls/hr Q12H IV 10/08/24 14:00 UNV objective GENERAL: Alert and oriented x 3. No acute distress. Morbidly obese. EYES: PERRL, EOMI. Anicteric. HENT: Moist mucous membranes. LUNGS: Diminished breath sounds. CARDIOVASCULAR: Irregular rate and rhythm. ABDOMEN: Soft, nontender and nondistended. EXTREMITIES: +3 pitting edema. NEUROLOGIC: No focal neurological deficits. SKIN: Warm, dry. laboratory and microbiology Laboratory Tests 12/03/24 06:29 11/30/24 03:27 Test 12/03/24 06:29 Range/Units Serum Glucose 111 H 74-106 mg/dL Problem List Atrial fibrillation with rapid ventricular response, newly diagnosed. Left pleural effusion. Sepsis. Hyperkalemia. Acute kidney injury. Transaminitis. Prediabetes. History of alcoholism. Morbidly obese. Severe systolic HF EF 15%, large pleural effusions. Pericardial effusion. Assessment/Plan Continued all current supportive medical care. IVFs. Aldactone. Diuretics with Bumex. Nebulized breathing treatments. Additional plan as per the hospital course. Critical care time of 45 minutes provided to include time spent evaluation of patient at bedside, when appropriate patient/family education for diagnosis, treatment plan, review of pertinent medical information and discussion of care with specialty providers and PCP. Dietary Evaluation Review Comments: 1. Refer to CDE on DC for weight management 2. Continue current plan of care Expected Outcomes/Goals: To meet >75% estimated needs Fu 3-5 days Plan discussed with: Patient XIOMY JERONIMO MD Dec 03, 2024 12:49
== END 2024-12-03 11:45 | disposition short-term general hospital (02) | DRG 720 ==
LOC: ER 17:15 → OVERFLOW 22:16 → DOU IN ICU 10-08 00:15 → TELE-WESTW 10-10 05:00 → TELE-CENTR 10-20 20:40 → ICU WEST 11-09 23:44 → ICU CENTRL 11-20 02:00 → DOU IN ICU 11-20 15:09 → TELE-WESTW 11-27 11:39 → ICU WEST 11-29 06:20 → EAST 12-02 05:06
PROVIDERS: ADMIT Student in an Organized Health Care Education/Training Program; ATTEND Student in an Organized Health Care Education/Training Program
PROC: 0W993ZZ Drainage of Right Pleural Cavity, Percutaneous Approach (ICD-10-PCS; 2024-10-07)
PROC: 05HF33Z Insertion of Infusion Device into Left Cephalic Vein, Percutaneous Approach (ICD-10-PCS; 2024-10-14)
PROC: B54NZZA Ultrasonography of Left Upper Extremity Veins, Guidance (ICD-10-PCS; 2024-10-14)
PROC: 0W9B3ZZ Drainage of Left Pleural Cavity, Percutaneous Approach (ICD-10-PCS; 2024-10-23)
PROC: 02HV33Z Insertion of Infusion Device into Superior Vena Cava, Percutaneous Approach (ICD-10-PCS; 2024-11-10)
PROC: B548ZZA Ultrasonography of Superior Vena Cava, Guidance (ICD-10-PCS; 2024-11-10)
PROC: 02HV33Z Insertion of Infusion Device into Superior Vena Cava, Percutaneous Approach (ICD-10-PCS; 2024-11-13)
PROC: B548ZZA Ultrasonography of Superior Vena Cava, Guidance (ICD-10-PCS; 2024-11-13)
PROC: 5A0955A Assistance with Respiratory Ventilation, Greater than 96 Consecutive Hours, High Flow/Velocity Cannula (ICD-10-PCS; principal; 2024-11-24)
PROC: 5A09357 Assistance with Respiratory Ventilation, Less than 24 Consecutive Hours, Continuous Positive Airway Pressure (ICD-10-PCS; 2024-11-29)
PROC: 5A09357 Assistance with Respiratory Ventilation, Less than 24 Consecutive Hours, Continuous Positive Airway Pressure (ICD-10-PCS; 2024-11-30)
PROC: 5A09357 Assistance with Respiratory Ventilation, Less than 24 Consecutive Hours, Continuous Positive Airway Pressure (ICD-10-PCS; 2024-12-01)
PROC: 5A09357 Assistance with Respiratory Ventilation, Less than 24 Consecutive Hours, Continuous Positive Airway Pressure (ICD-10-PCS; 2024-12-02)
DX: A41.9 Sepsis, unspecified organism (principal); N17.0 Acute kidney failure with tubular necrosis; J96.01 Acute respiratory failure with hypoxia; R57.0 Cardiogenic shock; R65.21 Severe sepsis with septic shock; I31.39 Other pericardial effusion (noninflammatory); I48.91 Unspecified atrial fibrillation; G62.9 Polyneuropathy, unspecified; I50.43 Acute on chronic combined systolic (congestive) and diastolic (congestive) heart failure; J91.8 Pleural effusion in other conditions classified elsewhere; I42.9 Cardiomyopathy, unspecified; E87.1 Hypo-osmolality and hyponatremia; Z20.822 Contact with and (suspected) exposure to COVID-19; E87.0 Hyperosmolality and hypernatremia; E87.4 Mixed disorder of acid-base balance; E66.2 Morbid (severe) obesity with alveolar hypoventilation; N18.32 Chronic kidney disease, stage 3b; N39.0 Urinary tract infection, site not specified; E87.5 Hyperkalemia; R73.03 Prediabetes; R74.01 Elevation of levels of liver transaminase levels; E87.6 Hypokalemia; J98.11 Atelectasis; R73.9 Hyperglycemia, unspecified; T50.2X5A Adverse effect of carbonic-anhydrase inhibitors, benzothiadiazides and other diuretics, initial encounter; R13.10 Dysphagia, unspecified; R74.8 Abnormal levels of other serum enzymes; Z91.119 Patient's noncompliance with dietary regimen due to unspecified reason; Z79.01 Long term (current) use of anticoagulants; Z88.0 Allergy status to penicillin; Z82.3 Family history of stroke; Y92.89 Other specified places as the place of occurrence of the external cause
CPT/HCPCS: 32555; 36415; 36556; 36569; 36600; 71045; 71046; 71250; 74220; 76604; 76775; 76942; 80048; 80053; 80162; 80202; 80307; 81001; 82436; 82565; 82570; 82805; 82962; 83036; 83605; 83735; 83880; 83935; 83986; 84100; 84132; 84133; 84156; 84300; 84443; 84478; 84484; 85007; 85025; 85027; 85610; 85730; 87040; 87070; 87081; 87086; 87088; 87205; 87426; 87804; 89051; 93005; 93306; 94640; 94660; 96374; 96375; 97110; 97116; 97163; 97530; 99291; 99292; G0378; J1450; J1815; J1956; J2003; J2405; J3480; P9047